=== PATIENT | male | born 1945 | race Caucasian/White ===

== ENCOUNTER 2019-04-16 08:34 | Outpatient (CLI) | payer SELFPAY | END 2019-04-16 08:35 | disposition EMS.NT | LOC: EMS 08:34 | PROVIDERS: ATTEND Surgery | DX: R55 Syncope and collapse (principal) ==

== ENCOUNTER 2019-07-23 19:09 | Outpatient (CLI) | payer SELFPAY | END 2019-07-23 19:10 | disposition EMS.NT | LOC: EMS 19:09 | PROVIDERS: ATTEND Surgery | DX: R55 Syncope and collapse (principal) ==

== ENCOUNTER 2019-11-23 10:44 | Outpatient (CLI) | payer SELFPAY | END 2019-11-23 10:45 | disposition EMS.NT | LOC: EMS 10:44 | PROVIDERS: ATTEND Surgery | DX: R53.1 Weakness (principal); R42 Dizziness and giddiness ==

== ENCOUNTER 2020-05-19 22:17 | Outpatient (CLI) | payer MEDICARE, OTHER | END 2020-05-19 22:18 | disposition EMS.NT | LOC: EMS 22:17 | PROVIDERS: ATTEND Surgery | DX: R40.4 Transient alteration of awareness (principal); W10.9XXA Fall (on) (from) unspecified stairs and steps, initial encounter; Y92.009 Unspecified place in unspecified non-institutional (private) residence as the place of occurrence of the external cause; Z53.29 Procedure and treatment not carried out because of patient's decision for other reasons ==

== ENCOUNTER 2020-06-12 21:55 | Outpatient (CLI) | payer MEDICARE, OTHER | END 2020-06-12 21:56 | disposition short-term general hospital (02) | LOC: EMS 21:55 | PROVIDERS: ATTEND Surgery | DX: R53.1 Weakness (principal); I49.9 Cardiac arrhythmia, unspecified | CPT/HCPCS: A0425; A0427 ==

== ENCOUNTER 2020-08-29 17:23 | Outpatient (CLI) | payer MEDICARE, OTHER | END 2020-08-29 17:24 | disposition critical access hospital (66) | LOC: EMS 17:23 | PROVIDERS: ATTEND Registered Nurse | DX: R55 Syncope and collapse (principal); R00.0 Tachycardia, unspecified; R41.0 Disorientation, unspecified; F41.9 Anxiety disorder, unspecified | CPT/HCPCS: A0425; A0429 ==

== ENCOUNTER 2020-08-29 17:46 | Observation (INO) | payer MEDICARE, OTHER ==
[2020-08-29] MEDS ORDERED: diltiaZEM INJ 5 MG/ML VIAL IVP STA (18:13)
--- NOTE | 2020-08-29 18:14 | XRAY Report ---
PROCEDURE: Chest 1 View X-Ray INDICATIONS: Chest Pain TECHNIQUE: One view of the chest was acquired. COMPARISON: None available. FINDINGS: Surgical changes and devices: None. Lungs and pleura: No pleural effusions or pneumothorax. Lungs are clear. Mediastinum: Mediastinal contours appear normal. Heart size is normal. Bones and chest wall: No suspicious bony lesions. Overlying soft tissues appear unremarkable. IMPRESSION: No acute cardiopulmonary disease. Reviewed by: Mario Liz MD on 08/29/2020 6:12 PM PST Approved by: Mario Liz MD on 08/29/2020 6:12 PM [facility] Station ID: [id number]
--- NOTE | 2020-08-29 18:16 | ED Physician Documentation ---
History of Present Illness - Stated complaint Stated Complaint: NEAR SYNCOPE - Chief complaint Chief Complaint: Cardiac - Additonal information Additional information: 74-year-old male is brought to the emergency department for evaluation of an unwitnessed syncopal event and atrial fibrillation. Patient is amnesic to the events. However per EMS he was shopping at the commissary and fainted. The patient himself does not remember calling 911 and he does not remember the syncopal event. For EMS he was noted to be in atrial fib with an RVR and a rate of 120. Patient reports that intermittently through the years he has had atrial fib rillation. He feels palpitations and a racing heart every few months and that typically lasts about 10 minutes before stopping. Patient denies that he takes any rate control or beta-connie medications. He is not anticoagulated. Pt reports to me that he feels he has been palpitations for 3 days previous to todays events. Patient denies any medical problems with the exception of occasional atrial fibrillation. He is a daily alcohol user typically 3 to 4 glasses of wine. At current time patient denies chest pain or short of breath but he does endorse feeling palpitations and he appears tremulous. SOC: no tobacco; + etoh meds: NONE PMH: atrial fibrillation Review of Systems Constitutional: denies: Fever, Myalgias Eyes: denies: Loss of vision Ears: denies: Loss of hearing, Ear pain Nose: denies: Rhinorrhea / runny nose, Foreign Body Throat: denies: Dental pain / toothache, Oral lesions / sores Cardiac: reports: Palpitations. denies: Chest pain / pressure, Pedal edema, Calf pain Respiratory: denies: Dyspnea, Cough, Hemoptysis, Wheezing GI: denies: Abdominal Pain, Nausea, Vomiting : denies: Dysuria, Frequency, Hesitancy Skin: denies: Rash, Lesions Musculoskeletal: denies: Neck pain, Back pain Neurologic: reports: LOC, Other (amnesic to events). denies: Difficulty speaking, Near syncope PD PAST MEDICAL HISTORY - Present Medications Home Medications: Ambulatory Orders Medication Instructions Recorded Confirmed No Known Home Medications 08/29/20 08/29/20 - Allergies Allergies/Adverse Reactions: Allergies Allergy/AdvReac Type Severity Reaction Status Date / Time amoxicillin Allergy Unknown Verified 08/29/20 21:44 clindamycin Allergy Unknown Verified 08/29/20 21:44 PD ED PE EXPANDED - General General: Alert, Anxious, Other (tremulous) - HEENT HEENT: Head injury (Superficial abrasion small hematoma right forehead at hairline) - Neck Neck: Supple w/out meningeal sx. No: Adenopathy - Cardiac Cardiac: Irregularly irregular, Pedal strong equal, Cap refill < 2 sec. No: Murmur Present - Respiratory Respiratory: Clear to ausultation david. No: Distress, Labored - Abdomen Abdomen: Normal Bowel sounds. No: Tender to palpation - Derm Derm: Normal color. No: Warm and dry - Extremities Extremities: Normal. No: Deformity, Tenderness, Pedal edema bilateral, Right calf TTP/cord, Left calf TTP/cord - Neuro Neuro: Alert and Oriented X 3, CNII-XII intact, Normal gait, Normal finger nose, Normal speech - GCS Eye Opening: Spontaneous Motor: Obeys Commands Verbal: Oriented Total: 15 Results - Vitals Vitals: Vital Signs - 24 hr 08/29/20 08/29/20 08/29/20 17:53 18:25 18:30 Temperature 37.1 C Heart Rate 117 H 110 H 93 Heart Rate [ Sitting] Heart Rate [ Standing] Heart Rate [ Supine] Respiratory 19 15 18 Rate Blood Pressure 158/110 H 119/81 H 140/88 H Blood Pressure [Sitting] Blood Pressure [Standing] Blood Pressure [Supine] O2 Saturation 98 98 100 08/29/20 08/29/20 08/29/20 19:00 19:30 20:00 Temperature Heart Rate 95 95 107 H Heart Rate [ Sitting] Heart Rate [ Standing] Heart Rate [ Supine] Respiratory 15 18 27 H Rate Blood Pressure 149/90 H 157/91 H 123/90 H Blood Pressure [Sitting] Blood Pressure [Standing] Blood Pressure [Supine] O2 Saturation 97 98 97 08/29/20 08/29/20 20:20 20:30 Temperature Heart Rate 96 Heart Rate [ 103 H Sitting] Heart Rate [ 141 H Standing] Heart Rate [ 107 H Supine] Respiratory 17 Rate Blood Pressure 153/110 H Blood Pressure 144/102 H [Sitting] Blood Pressure 139/119 H [Standing] Blood Pressure 168/100 H [Supine] O2 Saturation 97 Oxygen O2 Source Room air - EKG (time done) 1754 Rate: Rate (enter#) (102) Rhythm: Atrial fibrillation Sharon: Other Intervals: No: Prolonged QT QRS: Poor R wave progression Ischemia: Non specific changes (T wave flattening inferior leads) Compare to prior EKG: Old EKG unavailable Computer interpretation: Agree with computer (atrial fibrillation rate 102) - Labs Labs: Laboratory Tests 08/29/20 08/29/20 08/29/20 18:08 18:08 18:08 WBC 4.0 L RBC 3.38 L Hgb 12.0 L Hct 35.5 L MCV 105.0 H MCH 35.5 H MCHC 33.8 RDW 14.3 Plt Count 121 L MPV 9.4 Neut # (Auto) 2.9 Lymph # (Auto) 0.6 L [place] # (Auto) 0.5 Eos # (Auto) 0.0 Baso # (Auto) 0.1 Absolute Nucleated RBC 0.00 Nucleated RBC % 0.0 PT INR Sodium 142 Potassium 5.0 Chloride 104 Carbon Dioxide 20 L Anion Gap 18.0 H BUN 16 Creatinine 0.9 Estimated GFR (MDRD) 83 L Glucose 98 Calcium 8.9 Magnesium Total Bilirubin 1.0 AST 96 H ALT 73 H Alkaline Phosphatase 65 Troponin I High Sens 7.1 B-Natriuretic Peptide Total Protein 7.2 Albumin 4.4 Globulin 2.8 Albumin/Globulin Ratio 1.6 Lipase 38 TSH 08/29/20 08/29/20 08/29/20 18:08 18:08 18:08 WBC RBC Hgb Hct MCV MCH MCHC RDW Plt Count MPV Neut # (Auto) Lymph # (Auto) [place] # (Auto) Eos # (Auto) Baso # (Auto) Absolute Nucleated RBC Nucleated RBC % PT 11.6 INR 1.0 Sodium Potassium Chloride Carbon Dioxide Anion Gap BUN Creatinine Estimated GFR (MDRD) Glucose Calcium Magnesium 2.0 Total Bilirubin AST ALT Alkaline Phosphatase Troponin I High Sens B-Natriuretic Peptide Total Protein Albumin Globulin Albumin/Globulin Ratio Lipase TSH 1.07 08/29/20 18:08 WBC RBC Hgb Hct MCV MCH MCHC RDW Plt Count MPV Neut # (Auto) Lymph # (Auto) [place] # (Auto) Eos # (Auto) Baso # (Auto) Absolute Nucleated RBC Nucleated RBC % PT INR Sodium Potassium Chloride Carbon Dioxide Anion Gap BUN Creatinine Estimated GFR (MDRD) Glucose Calcium Magnesium Total Bilirubin AST ALT Alkaline Phosphatase Troponin I High Sens B-Natriuretic Peptide 192 H Total Protein Albumin Globulin Albumin/Globulin Ratio Lipase TSH - Rads (name of study) CXR Radiology: Final report received (no acute cardiopulmonary process) CT head Radiology: Final report received (No acute intracranial process. Moderate atrophy and chronic microvascular ischemic changes) PD MEDICAL DECISION MAKING - ED course Complexity details: reviewed results, re-evaluated patient, considered differential, d/w patient ED course: 74-year-old male presents the emergency department after a syncopal event while shopping at the commissary this afternoon. He is amnesic to the event. He does however report that he is been having palpitations for the last 3 days and when EMS arrived he was noted to be in atrial fib with a rate of about 120. On presentation here to the emergency department fib was again noted with a rate of about 110-120 and variable. We did give him 10 mg of diltiazem which successfully dropped his rate into the 80s but it remained in fibrillation. non ischemic. Negative trop. He was also given 1 liter crystalloid on presentation to the ED. However pt remained light headed. We checked orthostatic BP's and noted a sharp rise in his HR with standing and he reported feeling faint. Pt is also noted to be tremulous. He was given 1 mg ativan with marked improvement in tremor. This may be early ETOH withdrawal. He is not safe to discharge home given persistent light headedness and near syncope. Pt has no focal neuro findings. CT head negative for acute findings. Pt's CHADS2 score is 1, low to moderate risk of stroke. She should be anticoagulated and started on rate control. However given near syncope and orthostatic vital changes, he will be admitted to the hospital for rate control and further evaluation likely echo. Dr. Naylor has graciously agreed to evaluate pt and admit on observation status. Plan and findings discussed with the patient. Nursing staff also reports to me that the have been in communication with his regarding status and plan. Departure - Departure Disposition: ED Place in Observation Clinical Impression: Syncope Qualifiers: Syncope type: unspecified Qualified Code(s): R55 - Syncope and collapse Atrial fibrillation Qualifiers: Atrial fibrillation type: unspecified Qualified Code(s): I48.91 - Unspecified atrial fibrillation EtOH dependence Qualifiers: Substance use status: in withdrawal Complication of substance-induced condition: uncomplicated Qualified Code(s): F10.230 - Alcohol dependence with withdrawal, uncomplicated Condition: Serious Discharge Date/Time: 08/29/20 21:45
[2020-08-29 18:19] LABS: BASOPHILS # (AUTO) 0.1 10^3/uL (0.0-0.1); BASOPHILS % (AUTO) 1.7 %; EOSINOPHILS % (AUTO) 0.7 %; LYMPHOCYTES # (AUTO) 0.6 10^3/uL (1.5-3.5); LYMPHOCYTES % (AUTO) 14.4 %; MEAN CORPUSCULAR HEMOGLOBIN 35.5 pg (27.0-31.0); MEAN CORPUSCULAR HGB CONC 33.8 g/dL (32.0-36.0); MEAN PLATELET VOLUME 9.4 fL (7.4-11.4); MONOCYTES # (AUTO) 0.5 10^3/uL (0.0-1.0); MONOCYTES % (AUTO) 11.2 %; NEUTROPHILS # (AUTO) 2.9 10^3/uL (1.5-6.6); NEUTROPHILS % (AUTO) 71.5 %; PLT - PLATELET COUNT 121 10^3/uL (130-450); RED BLOOD COUNT 3.38 10^6/uL (4.70-6.10); RED CELL DISTRIBUTION WIDTH 14.3 % (12.0-15.0)
[2020-08-29 18:24] LABS: PT - PROTHROMBIN TIME 11.6 secs (9.9-12.6)
[2020-08-29 18:40] LABS: ALBUMIN 4.4 g/dL (3.2-5.5); ALBUMIN/GLOBULIN RATIO 1.6 (1.0-2.2); CALCIUM 8.9 mg/dL (8.5-10.3); CREATININE 0.9 mg/dL (0.6-1.2); TOTAL PROTEIN 7.2 g/dL (6.7-8.2)
--- NOTE | 2020-08-29 18:57 | CT Report ---
PROCEDURE: HEAD WO INDICATIONS: lapse in consciousness TECHNIQUE: Noncontrast 4.5 mm thick angled axial sections acquired from the foramen magnum to the vertex. For r adiation dose reduction, the following was used: automated exposure control, adjustment of mA and/or kV according to patient size. COMPARISON: None. FINDINGS: Image quality: Excellent. The ventricular system and cortical sulci demonstrate atrophy, consistent for patient's stated age. There are areas of hypodensity in the periventricular and subcortical white matter. There is no acut e intra or extra-axial fluid collection. No acute hemorrhage, mass lesion or midline shift. Brainst em is unremarkable. Globes are symmetrical. Sinuses demonstrate scattered areas of ethmoid and minim al maxillary, frontal sinus mucosal thickening. Osseous structures are intact. IMPRESSION: 1. No acute intracranial process. 2. Moderate atrophy and chronic microvascular ischemic changes. Reviewed by: Shayy Aponte MD on 08/29/2020 5:56 PM [facility] Approved by: Shayy Aponte MD on 08/29/2020 5:56 PM [facility] Station ID: [id number]
[2020-08-29] MEDS ORDERED: LORazepam 2 MG/ML VIAL IVP STA (19:59)
[2020-08-29] MEDS ORDERED: SODIUM CHLORIDE 0.9% 1,000 ML IV STA (20:13)
[2020-08-29] MEDS ORDERED: SODIUM CHLORIDE FLUSH 0.9% 10 ML SYRINGE IVP PRN (20:54)
[2020-08-29] MEDS ORDERED: SODIUM CHLORIDE 0.9% 1,000 ML IV SCH ×2 (21:00→22:33)
[2020-08-29] MEDS ORDERED: LORazepam 2 MG/ML VIAL IVP PRN (21:01)
--- NOTE | 2020-08-29 21:10 | HISTORY & PHYSICAL EXAMINATION ---
Chief Complaint - Chief Complaint Chief Complaint: syncope, atrial fibrillation w/ rvr History of Present Illness - Admitted From Admitted From:: [facility] ED - History Obtained From Records Reviewed: yes History obtained from: patient - History of Present Illness HPI Comment/Other: Patient is a 74-year-old male who denies any medical history and denies taking any medications. He presents with complaint of an unwitnessed syncopal episode. He told the ED provider it happened at the commissary store on the [facility]. However when I saw him later he reported the incident happened at his house. He called EMS who brought him to the emergency department. In the emergency department he was found to be in atrial fibrillation with rapid ventricular rhythm as high as 141. He reports history of palpitations lasting about 10 minutes 3-4 times a year for most of his life. He has never been worked up for this. He is not on any medications. He denies chest pain, dyspnea, abdominal pain, nausea, vomiting, fever or chills. He drinks 3 to 4 glasses of wine daily. He last drank yesterday. He denies ever going through withdrawal symptoms. In the ED he was given a dose of diltiazem 10 mg IV x1 which improved his heart rate to 95. It was reported that he had positive orthostatic vitals and while attempting to ambulate he was somewhat unstable on his feet. Consequently he was presented for further work-up. At bedside he is intermittently mildly tremulous. He has a small scrape on his forehead, supposedly from his fall. He denies any further complaints. History - Past Medical History Cardiovascular: reports: Arrhythmia MRSA Hx?: No Other Past Medical History: Patient denied any past medical history - Past Surgical History Other past surgical history: Patient denied any surgical history - Family & Social History Family History Comment/Other: His mother had lung cancer. His father had an MO. Social History Notes: He lives at home with his . 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 He smoked 1 pack a day for 38 years. He quit smoking in 2003. He reports drinking 3 to 4 glasses of wine daily. He does not use any recreational substances. He is independent of a ctivities of daily living. He ambulates with no walking aid and also runs. - POLST Patient has POLST: No POLST Status: Full Code Meds/Allgy - Home Medications Home Medications: Ambulatory Orders Medication Instructions Recorded Confirmed No Known Home Medications 08/29/20 08/29/20 - Allergies Allergies/Adverse Reactions: Allergies Allergy/AdvReac Type Severity Reaction Status Date / Time amoxicillin Allergy Unknown Verified 08/29/20 21:44 clindamycin Allergy Unknown Verified 08/29/20 21:44 Review of Systems - Constitutional Constitutional: reports: Weakness. denies: Fatigue, Fever, Chills, Diaphoresis - Eyes Eyes: denies: Pain, Vision loss - Ears, Nose & Throat Ears, Nose & Throat: denies: Ear pain, Sore throat - Cardiovascular Cariovascular: reports: Irregular heart rate, Syncope. denies: Chest pain, Jonel ma, Exertional dyspnea - Respiratory Respiratory: denies: Cough, Sputum production, Wheezing, Hemoptysis, SOB at rest, Pleuritic pain - Gastrointestinal Gastrointestinal: denies: Abdominal pain, Abdominal distention, Constipation, Diarrhea, Change in bowel habits, Black stools, Bloody stools, Nausea, Vomiting, Coffee grounds emesis, Reflux/heartburn - Genitourinary Genitourinary: denies: Dysuria, Frequency, Urgency, Incontinence, Flank pain - Musculoskeletal Musculoskeletal: denies: Muscle pain, Back pain, Muscle aches, Stiffness - Integumentary Integumentary: denies: Rash, Pruritis, Lesions - Neurological Neurological: reports: General weakness. denies: Headache, Dizziness, Slurred speech - Psychiatric Psychiatric: denies: Depression, Anxiety, Suicidal - Endocrine Endocrine: denies: Polyuria, Polydypsia - Hematologic/Lymphatic Hematologic/Lymphatic: denies: Anemia, Bruising Prior Level of Functionality: Patient is normally independent of activities of daily living Exam - Vital Signs Vital Signs: Vital Signs x48h Temp Pulse Pulse Pulse Pulse Resp BP 08/29/20 20:30 96 17 153/110 H 08/29/20 20:20 103 H 141 H 107 H 08/29/20 20:00 107 H 27 H 123/90 H 08/29/20 19:30 95 18 157/91 H 08/29/20 19:00 95 15 149/90 H 08/29/20 18:30 93 18 140/88 H 08/29/20 18:25 110 H 15 119/81 H 02/23/21 17:53 37.1 C 117 H 19 158/110 H BP BP BP Pulse Ox 08/29/20 20:30 97 08/29/20 20:20 144/102 H 139/119 H 168/100 H 08/29/20 20:00 97 08/29/20 19:30 98 08/29/20 19:00 97 08/29/20 18:30 100 08/29/20 18:25 98 08/29/20 17:53 98 - Physical Exam General Appearance: positive: No acute distress, Alert, Other (Occasionally mild tremulous) Eyes Bilateral: positive: PERRL, EOMI ENT: positive: Dry mucous membranes Neck: positive: No JVD, Trachea midline Respiratory: positive: Chest non-tender, No respiratory distress, Breath sounds nml. negative: Wheezes, Rales, Rhonchi Cardiovascular: positive: No murmur, Irregularly irregular, Tachycardia Abdomen: positive: Non-tender, No organomegaly, Nml bowel sounds, No distention. negative: Tenderness, Guarding, Rebound Back: positive: Nml inspection Skin: positive: Color nml, No rash, Warm, Dry Extremities: positive: Non-tender, Full ROM, Nml appearance, No pedal edema Neurologic/Psychiatric: positive: Oriented x3, Mood/affect nml Conclusion/Plan - Problem List (1) Atrial fibrillation Conclusion/Plan: Suspect related to alcohol use TSH normal. Trop normal. Will trend X 2 more. BNP 192 Patient has never been on any medication for atrial fibrillation Heart rate was in the 140's Patient was give a dose of diltiazem 10mg IV Heart rate improved to the 90's Diltiazem 30mg po q6hrs ordered On telemetry. 2D echo pending Patient has a CHADVasc Score of 2 for Age and HTN Qualifiers: Atrial fibrillation type: unspecified Qualified Code(s): I48.91 - Unspecified atrial fibrillation (2) Syncope Conclusion/Plan: ? Cardiac cause vs Alcohol use. CT brain negative for any acute process 2D echo pending Orthostatics were positive. Will repeat qshift Patient received 1L of IV hydration in the ED. Continue with normal saline at 50ml/hr On telemetry. Urine Tox screen pending Qualifiers: Syncope type: unspecified Qualified Code(s): R55 - Syncope and collapse (3) Alcohol abuse Conclusion/Plan: Patient drinks 3-4 glasses of wine daily. CIWA protocol initiated. Librium 25mg po tid ordered - Lab Results Fish Bones: 08/29/20 18:08 08/29/20 18:08 Core Measures - Anticipated LOS I expect patient to be DC'd or transferred within 96 hours.: Yes - DVT/VTE - Prophylaxis VTE/DVT Device ordered at admit?: Yes VTE/DVT Prophylaxis med ordered at admit?: Yes
[2020-08-29 22:15] LABS: C. PNEUMONIAE- RESP PCR PANEL NOT DETECTED
[2020-08-29] MEDS ORDERED: diltiaZEM 30 MG TABLET PO SCH (22:21)
[2020-08-29] MEDS: chlordiazePOXIDE 25 MG CAPSULE PO SCH (23:22)
[2020-08-29 23:31] LABS: MUDS CUTOFF CONCENTRATIONS CUTOFF CONC BELOW:
[2020-08-29] MEDS: SODIUM CHLORIDE FLUSH 0.9% 10 ML SYRINGE IVP SCH (23:33)
[2020-08-29 23:41] LABS: AMPHETAMINE SCREEN,URINE NEGATIVE (NEGATIVE); BENZODIAZEPINES SCREEN, URINE NEGATIVE (NEGATIVE); COCAINE SCREEN URINE NEGATIVE (NEGATIVE); METHADONE SCREEN, URINE NEGATIVE (NEGATIVE); METHAMPHETAMINES SCREEN, URINE NEGATIVE (NEGATIVE); OPIATE SCREEN, URINE NEGATIVE (NEGATIVE); OXYCODONE SCREEN, URINE NEGATIVE (NEGATIVE); PROPOXYPHENE SCREEN, URINE NEGATIVE (NEGATIVE); TRICYCLIC ANTIDEPRESSANT,URINE NEGATIVE (NEGATIVE)
[2020-08-30 04:53] LABS: BASOPHILS # (AUTO) 0.1 10^3/uL (0.0-0.1); BASOPHILS % (AUTO) 1.6 %; EOSINOPHILS # (AUTO) 0.1 10^3/uL (0.0-0.7); EOSINOPHILS % (AUTO) 1.6 %; HGB - HEMOGLOBIN 10.5 g/dL (14.0-18.0); LYMPHOCYTES % (AUTO) 23.2 %; MEAN CORPUSCULAR HEMOGLOBIN 35.1 pg (27.0-31.0); MEAN CORPUSCULAR HGB CONC 33.7 g/dL (32.0-36.0); MEAN CORPUSCULAR VOLUME 104.3 fL (80.0-94.0); MEAN PLATELET VOLUME 10.1 fL (7.4-11.4); MONOCYTES # (AUTO) 0.6 10^3/uL (0.0-1.0); MONOCYTES % (AUTO) 13.9 %; NEUTROPHILS # (AUTO) 2.6 10^3/uL (1.5-6.6); PLT - PLATELET COUNT 100 10^3/uL (130-450); RED BLOOD COUNT 2.99 10^6/uL (4.70-6.10); RED CELL DISTRIBUTION WIDTH 14.1 % (12.0-15.0); WHITE BLOOD COUNT 4.4 x10^3/uL (4.8-10.8)
[2020-08-30 05:02] LABS: CALCIUM 8.6 mg/dL (8.5-10.3); CREATININE 0.9 mg/dL (0.6-1.2)
[2020-08-30] MEDS: chlordiazePOXIDE 25 MG CAPSULE PO SCH (05:02)
[2020-08-30] MEDS ORDERED: diltiaZEM 30 MG TABLET PO SCH (06:00)
[2020-08-30] MEDS ORDERED: THIAMINE 100 MG TABLET PO SCH (09:00)
[2020-08-30] MEDS ORDERED: diltiaZEM CD 120 MG CAPSULE PO SCH (09:00)
[2020-08-30] MEDS ORDERED: PRENATAL VITAMIN TABLET PO SCH (09:00)
[2020-08-30] MEDS ORDERED: ENOXAPARIN 40 MG/0.4 ML SYRINGE SUBQ SCH (09:00)
[2020-08-30] MEDS: SODIUM CHLORIDE FLUSH 0.9% 10 ML SYRINGE IVP SCH (09:30)
--- NOTE | 2020-08-30 11:20 | PHARMACY PROGRESS NOTE ---
- Best Possible Medication History Admit Date and Time: 08/29/202053 Processed by: Pharmacy Medication History completed: Yes Patient Interview: Completed (Pt interveiwed by Savita) Secondary Source(s): Insurance records (Insurance records show hx of fill for Metoprolol and Apixaban, nothing filled recently) As the person ultimately responsible for medication therapy, providers are able to order a medication from an existing home medication list in [facility] via the "Reconcile Routine" prior to Confirmation of that medication by personal support worker. Such practice is discouraged except when the physician, in their clinical judgment, deems that a medical need exists for a medication without regard to previous use.
--- NOTE | 2020-08-30 12:15 | Discharge Plan ---
Discharge Plan Problem Reviewed?: Yes Disposition: Home, Self Care Condition: Stable Prescriptions: Aspirin [Aspirin EC] 81 mg PO DAILY #30 mg diltiaZEM CD [Cardizem Cd] 120 mg PO DAILY #30 mg Pnv No.95/Ferrous Fum/Folic AC [ Tablet] 1 each PO DAILY #30 ea Thiamine [Vitamin B-1] 100 mg PO DAILY #30 mg Diet: Regular Activity Restrictions: Activity as Tolerated Shower Restrictions: No (fall precaution) Instruction Topics: AFL/Afib, Atrial Fibrillation, Stroke Prevent Live W Atrial Fib, Diltiazem extended-release capsules or tablets, Alcoholism, Alcoholism Part Solution, Alcoholism Get Help Health Concerns: afib, alcoholism Plan of Treatment: you are found to have afib with rapid ventricular response, also called rapid heart beats. Now your heart rate is controlled. new medications Cardizem and Aspirin are prescribed for you to control your Afib with rapid heart beat. It is likely caused by your alcoholism. It is critical important for you to quit your alcoholism as I discussed with you and your . Medication and Vitamin B1 are prescribed to help you to deal with your alcoholism. Care Goals: stabilization and improvement of your medical conditions Assessment: discussed the care plan with you and your , answered your questions, you understood. Additional Instructions or Follow Up instructions: You may followup with your PCP in one to two weeks. Should your symptoms return or worsen, you may present ER or call 911 for help No Smoking: If you smoke, Please STOP! Call for help. Follow-up with: CHINA MONTIEL MD [Primary Care Provider] -
--- NOTE | 2020-08-30 12:31 | DISCHARGE SUMMARY ---
Discharge Summary Admit Date: 08/29/20 Discharge Date: 08/30/20 Discharging Provider: Gallito Valero Primary Care Provider: Austin Love Condition at Discharge: Stable Discharge Disposition: 01 Home, Self Care Discharge Facility Name: home - DIAGNOSES Discharge Diagnoses with Status of Each Condition: (1) Atrial fibrillation HR is controlled by Cardizem CD, pt's Chadsvascular score 1. pt is prescribed Cardizem and aspirin. Pt has hx of afib, per pt's report, It was likely caused by his alcoholism. Strongly advised patient quit alcohol (2) Syncope pt report he did not lost Consciousness When he had a fall in the home. CT of the head was unremarkable. EKG show A fibrillation with RVR. Troponin test was negative. Echo show unremarkable. Fall/syncope was likely caused by a fibrillation with some dehydration. Now atrial fibrillation heart Rate is controlled. Dehydration is resolved. Strongly advised patient quit alcohol (3) Alcohol abuse Discussed the care plan with patient and patient's , Social work also discussed the care with the patient. Strongly advised patient quit alcohol. Patient is prescribed multiple vitamin and vitamin B1. Patient has no alcohol withdrawal symptoms in hospital. Strongly advised patient quit alcohol (4)Dehydration resolved (5)medical noncompliant Per patient 's report and pharmacy check patient medication record, pt was likely not take his medication or refill of his home medications. advise pt do medical compliance. - HPI History of Present Illness: refer from Dr. Naylor's HPI on 08/29/20 Patient is a 74-year-old male who denies any medical history and denies taking any medications. He presents with complaint of an unwitnessed syncopal episode. He told the ED provider it happened at the [employer] store on the [employer]. However when I saw him later he reported the incident happened at his house. He called EMS who brought him to the emergency department. In the emergency department he was found to be in atrial fibrillation with rapid ventricular rhythm as high as 141. He reports history of palpitations lasting about 10 minutes 3-4 times a year for most of his life. He has never been worked up for this. He is not on any medications. He denies chest pain, dyspnea, abdominal pain, nausea, vomiting, fever or chills. He drinks 3 to 4 glasses of wine daily. He last drank yesterday. He denies ever going through withdrawal symptoms. In the ED he was given a dose of diltiazem 10 mg IV x1 which improved his heart rate to 95. It was reported that he had positive orthostatic vitals and while attempting to ambulate he was somewhat unstable on his feet. Consequently he was presented for further work-up. At bedside he is intermittently mildly tremulous. He has a small scrape on his forehead, supposedly from his fall. He denies any further complaints. - HOSPITAL COURSE Hospital Course: Patient was admitted for evaluation of syncope and fall in the home. Patient reported he denied loss of conscious when he had a fall in the home. CT of the head was unremarkable. Patient was found to have atrial fibrillation with RVR. Patient was given Cardizem CD and his heart rate was controlled. Patient also was given intravenous IV fluids for his dehydration. Patient was alcoholism. Per patient report, his atrial fibrillation was likely caused fby patient'a alcohol abuse. Patient has no alcohol withdrawal symptoms in hospital. Strongly advised patient to quit alcohol. - ALLERGIES Allergies/Adverse Reactions: Allergies Allergy/AdvReac Type Severity Reaction Status Date / Time amoxicillin Allergy Unknown Verified 08/29/20 21:44 clindamycin Allergy Unknown Verified 08/29/20 21:44 - MEDICATIONS Home Medications: Ambulatory Orders Medication Instructions Recorded Confirmed Aspirin [Aspirin EC] 81 mg PO DAILY #30 mg 08/30/20 Pnv No.95/Ferrous Fum/Folic AC 1 each PO DAILY #30 ea 08/30/20 [ Tablet] Thiamine [Vitamin B-1] 100 mg PO DAILY #30 mg 08/30/20 diltiaZEM CD [Cardizem Cd] 120 mg PO DAILY #30 mg 08/30/20 - PHYSICAL EXAM AT DISCHARGE General Appearance: positive: No acute distress, Alert. negative: Lethargic Eyes Bilateral: positive: Normal inspection, PERRL. negative: No lid inflammation ENT: positive: ENT inspection nml, No signs of dehydration. negative: Purulent nasal drainage Neck: positive: Nml inspection, Trachea midline. negative: Thyromegaly, Tracheal deviation Respiratory: positive: Chest non-tender, No respiratory distress. negative: Wheezes, Rales, Rhonchi Cardiovascular: positive: Regular rate & rhythm, No murmur. negative: Tachycardia, Bradycardia, Systolic murmur, Diastolic murmur Peripheral Pulses: positive: 2+ Abdomen: positive: Non-tender, Nml bowel sounds, No distention. negative: Tenderness, Guarding, Rebound Back: positive: Nml inspection. negative: CVA tenderness (R), CVA tenderness (L) Skin: positive: Color nml, Warm, Dry. negative: Cyanosis, Diaphoresis, Pallor Extremities: positive: Non-tender, Full ROM, Nml appearance. negative: Calf tenderness Neurologic/Psychiatric: positive: Oriented x3, Motor nml, Sensation nml. negative: Weakness, Sensory loss, Facial droop, Slurred/abnml speech, Depressed mood/affect - LABS Result Diagrams: 08/30/20 03:52 08/30/20 03:52 - FOLLOW UP Follow Up: you are found to have afib with rapid ventricular response, also called rapid heart beats. Now your heart rate is controlled. new medications Cardizem and Aspirin are prescribed for you to control your Afib with rapid heart beat. It is likely caused by your alcoholism. It is critical important for you to quit your alcoholism as I discussed with you and your . Medication and Vitamin B1 are prescribed to help you to deal with your alcoholism. You may followup with your PCP in one to two weeks. Should your symptoms return or worsen, you may present ER or call 911 for help - TIME SPENT Time Spent in Discharge (Minutes): 30
[2020-08-30 13:10] VITALS: BP 128/88
== END 2020-08-30 13:39 | disposition home or self-care (01) ==
LOC: EDUNIT# → ED 17:46 → MS2 20:54
PROVIDERS: ADMIT Internal Medicine; ATTEND Nurse Practitioner Gerontology
DX: I48.91 Unspecified atrial fibrillation (principal); R55 Syncope and collapse; E86.0 Dehydration; F10.20 Alcohol dependence, uncomplicated; R25.1 Tremor, unspecified; Z87.891 Personal history of nicotine dependence; Z20.822 Contact with and (suspected) exposure to COVID-19; S00.81XA Abrasion of other part of head, initial encounter; W18.30XA Fall on same level, unspecified, initial encounter; Y92.512 Supermarket, store or market as the place of occurrence of the external cause
CPT/HCPCS: 36415; 70450; 71045; 80048; 80053; 80306; 83690; 83735; 83880; 84443; 84484; 85025; 85610; 87631; 93005; 93306; 96361; 96372; 96374; 96375; 96376; 97161; 99284; 99285; A9270; G0378; J1650; J2060; 0202U

== ENCOUNTER 2020-10-17 19:49 | Outpatient (CLI) | payer MEDICARE, OTHER | END 2020-10-17 19:50 | disposition short-term general hospital (02) | LOC: EMS 19:49 | DX: S01.81XA Laceration without foreign body of other part of head, initial encounter (principal); W10.9XXA Fall (on) (from) unspecified stairs and steps, initial encounter; Y92.009 Unspecified place in unspecified non-institutional (private) residence as the place of occurrence of the external cause | CPT/HCPCS: A0425; A0429 ==

== ENCOUNTER 2020-11-10 12:52 | Outpatient (CLI) | payer MEDICARE, OTHER | END 2020-11-10 12:53 | disposition EMS.NT | LOC: EMS 12:52 | DX: M54.9 Dorsalgia, unspecified (principal) ==

== ENCOUNTER 2021-03-23 16:22 | Outpatient (CLI) | payer MEDICARE, OTHER | END 2021-03-23 16:23 | disposition critical access hospital (66) | LOC: EMS 16:22 | DX: R42 Dizziness and giddiness (principal); R00.2 Palpitations | CPT/HCPCS: A0425; A0429 ==

== ENCOUNTER 2021-03-23 16:46 | Emergency (ER) | payer MEDICARE, OTHER ==
[2021-03-23] MEDS ORDERED: METOPROLOL 5 MG/5 ML VIAL IVP STA (17:20)
--- NOTE | 2021-03-23 17:21 | ED Physician Documentation ---
History of Present Illness - Stated complaint Stated Complaint: DIZZINESS - Chief complaint Chief Complaint: Neuro - History obtained from History obtained from: Patient - Additonal information Additional information: 33-year-old gentleman with paroxysmal atrial fibrillation feels like he has been in A. fib all day. States that it has been several months since he has been in [place] [employer] and usually does not last this long. He is supposed to be taking metoprolol and aspirin but he admits to noncompliance with these. He had a near syncopal episode at the store which necessitated evaluation. He denies chest pain or trouble breathing. Review of Systems Ten Systems: 10 systems reviewed and negative Constitutional: reports: Fatigue, Reviewed and negative Cardiac: reports: Palpitations. denies: Chest pain / pressure Respiratory: denies: Dyspnea, Cough PD PAST MEDICAL HISTORY - Past Medical History Cardiovascular: Arrhythmia - Present Medications Home Medications: Ambulatory Orders Medication Instructions Recorded Confirmed No Known Home Medications 03/23/21 03/23/21 - Allergies Allergies/Adverse Reactions: Allergies Allergy/AdvReac Type Severity Reaction Status Date / Time amoxicillin Allergy Unknown Verified 03/23/21 16:55 clindamycin Allergy Unknown Verified 03/23/21 16:55 - Social History Does the pt smoke?: No Smoking Status: Never smoker - POLST Patient has POLST: No POLST Status: Full Code PD ED PE NORMAL - Vitals Vital signs reviewed: Yes - General General: Alert and oriented X 3, No acute distress - HEENT HEENT: PERRL, EOMI - Neck Neck: Supple, no meningeal sign, No bony TTP - Cardiac Cardiac: Other (Rapid and irregular without murmur) - Respiratory Respiratory: No respiratory distress, Clear bilaterally - Abdomen Abdomen: Non tender - Back Back: No CVA TTP, No spinal TTP - Derm Derm: Normal color, Warm and dry - Extremities Extremities: No edema, No calf tenderness / cord - Neuro Neuro: Alert and oriented X 3, Normal speech Results - Vitals Vitals: Vital Signs - 24 hr 03/23/21 03/23/21 03/23/21 16:55 17:32 17:37 Temperature 36.5 C Heart Rate 113 H 94 100 Respiratory 18 Rate Blood Pressure 144/114 H 146/96 H 146/98 H O2 Saturation 98 03/23/21 03/23/21 03/23/21 17:42 17:54 19:00 Temperature 36.6 C Heart Rate 98 94 97 Respiratory 16 16 Rate Blood Pressure 143/94 H 138/111 H 134/105 H O2 Saturation 98 99 03/23/21 03/23/21 03/23/21 19:56 20:01 20:02 Temperature Heart Rate 95 71 67 Respiratory 25 H 19 18 Rate Blood Pressure 147/106 H 153/99 H 153/99 H O2 Saturation 99 95 95 03/23/21 03/23/21 03/23/21 20:06 20:15 20:45 Temperature Heart Rate 71 73 78 Respiratory 20 18 17 Rate Blood Pressure 139/92 H 128/107 H 149/98 H O2 Saturation 97 100 99 03/23/21 03/23/21 03/23/21 21:53 21:55 22:39 Temperature Heart Rate 95 94 90 Respiratory 20 Rate Blood Pressure 114/82 H 115/85 H O2 Saturation 03/23/21 03/23/21 03/24/21 23:00 23:30 01:00 Temperature Heart Rate 77 77 73 Respiratory 18 18 18 Rate Blood Pressure 126/108 H 121/72 132/88 H O2 Saturation 95 95 96 03/24/21 03/24/21 03/24/21 03:00 05:00 07:00 Temperature Heart Rate 68 79 71 Respiratory 18 18 18 Rate Blood Pressure 138/87 H 143/92 H 156/100 H O2 Saturation 96 98 95 03/24/21 03/24/21 07:56 09:55 Temperature Heart Rate 67 84 Respiratory 16 22 Rate Blood Pressure 143/92 H 114/87 H O2 Saturation 94 97 Oxygen O2 Source Room air - EKG (time done) 1724 Rate: Rate (enter#) (102) Rhythm: Atrial fibrillation [place]: Normal QRS: Normal Ischemia: Q waves (small inferior). No: Non specific changes 1959 Rate: Rate (enter#) (75) Rhythm: NSR (w lawrence pacs) [place]: Normal Intervals: Normal NE, Prolonged QT QRS: Normal Ischemia: Normal ST segments 2204 Rate: Rate (enter#) (86w) Rhythm: NSR (w pacs) [place]: Normal Intervals: Prolonged NE, Prolonged QT QRS: Normal Ischemia: No: ST elevation c/w ischemia, ST depression - Labs Labs: Laboratory Tests 03/23/21 03/23/21 17:15 17:15 WBC 6.2 RBC 3.61 L Hgb 12.7 L Hct 37.2 L MCV 103.0 H MCH 35.2 H MCHC 34.1 RDW 13.3 Plt Count 135 MPV 10.1 Neut # (Auto) 4.9 Lymph # (Auto) 0.7 L [place] # (Auto) 0.5 Eos # (Auto) 0.0 Baso # (Auto) 0.1 Absolute Nucleated RBC 0.00 Nucleated RBC % 0.0 Sodium 140 Potassium 4.9 Chloride 97 L Carbon Dioxide 27 Anion Gap 16.0 H BUN 18 Creatinine 1.2 Estimated GFR (MDRD) 59 L Glucose 146 H Calcium 9.3 Magnesium 1.6 L Total Bilirubin 2.2 H AST 143 H ALT 104 H Alkaline Phosphatase 96 Total Protein 7.1 Albumin 4.2 Globulin 2.9 Albumin/Globulin Ratio 1.4 Lipase 40 Ethyl Alcohol < 5.0 Procedures - Procedural sedation Sedation prep: Informed consent, Time out completed, Last meal (this am), PE performed, ASA 2 - mild disease Sedation Medications: propofol (70 then 40mg IVP) Mallampati classification: I Patient status during sedation: Responds to tactile Sedation recovery: Recovered uneventfully Time in sedation (Minutes): 10 - Cardioversion 1 Time of attempt: 20:00 Indication: Tachyarrhythmia Risks, benefits, alternatives explained to: Pt CS via: Pads, AP approach Sync: 50j, 100j, 150j Post cardioversion rhythm: NSR Performed by: ED MD [facility] MEDICAL DECISION MAKING - ED course ED course: 75-year-old gentleman with paroxysmal atrial fibrillation presents with symptomatic atrial fibrillation starting today. Initially given 5 mg metoprolol IV which resulted in rate control but not rhythm control. Procainamide drip, 1 g over 1 hour did not result in any significant change and patient consented for electrical cardioversion. He was cardioverted successfully, then we were waiting for a friend to come pick him up. Prior to discharge though he was complaining of slight chest pressure, I presume from the cardioversion, but also feeling very shaky and orthostatic although he is not technically orthostatic but did not tolerate standing upright. Could be some element of alcohol withdrawal given the shakiness but he is not hypertensive nor tachycardic. Will repeat EKG again and check a fingerstick glucose. Ended up boarding to see social work in the morning and he declined help with alcohol withdrawal. Departure - Departure Disposition: 01 Home, Self Care Clinical Impression: Alcohol abuse Atrial fibrillation Qualifiers: Atrial fibrillation type: paroxysmal Qualified Code(s): I48.0 - Paroxysmal atrial fibrillation Condition: Good Record reviewed to determine appropriate education?: Yes Instructions: Atrial Fibrillation Dc Comments: Important to take your medications, metoprolol and aspirin as prescribed. Also as discussed, your liver is starting to show signs of damage due to alcoholism and is important to cease alcohol use. Return for new or worsening symptoms. 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 Discharge Date/Time: 03/24/21 11:45
[2021-03-23 17:23] LABS: BASOPHILS # (AUTO) 0.1 10^3/uL (0.0-0.1); BASOPHILS % (AUTO) 1.1 %; EOSINOPHILS % (AUTO) 0.2 %; HCT - HEMATOCRIT 37.2 % (42.0-52.0); HGB - HEMOGLOBIN 12.7 g/dL (14.0-18.0); LYMPHOCYTES # (AUTO) 0.7 10^3/uL (1.5-3.5); LYMPHOCYTES % (AUTO) 11.1 %; MEAN CORPUSCULAR HEMOGLOBIN 35.2 pg (27.0-31.0); MEAN CORPUSCULAR HGB CONC 34.1 g/dL (32.0-36.0); MEAN PLATELET VOLUME 10.1 fL (7.4-11.4); MONOCYTES # (AUTO) 0.5 10^3/uL (0.0-1.0); MONOCYTES % (AUTO) 7.7 %; NEUTROPHILS # (AUTO) 4.9 10^3/uL (1.5-6.6); NEUTROPHILS % (AUTO) 79.1 %; PLT - PLATELET COUNT 135 10^3/uL (130-450); RED BLOOD COUNT 3.61 10^6/uL (4.70-6.10); RED CELL DISTRIBUTION WIDTH 13.3 % (12.0-15.0); WHITE BLOOD COUNT 6.2 x10^3/uL (4.8-10.8)
[2021-03-23 17:34] LABS: ALBUMIN 4.2 g/dL (3.2-5.5); ALBUMIN/GLOBULIN RATIO 1.4 (1.0-2.2); ALKALINE PHOSPHATASE 96 IU/L (42-121); ALT ALANINE AMINOTRANSFERASE 104 IU/L (10-60); AST ASPARTATE AMINOTRANSFERASE 143 IU/L (10-42); BILIRUBIN,TOTAL 2.2 mg/dL (0.2-1.0); BUN - BLOOD UREA NITROGEN 18 mg/dL (6-20); CALCIUM 9.3 mg/dL (8.5-10.3); CARBON DIOXIDE - CO2 27 mmol/L (21-32); CHLORIDE 97 mmol/L (101-111); CREATININE 1.2 mg/dL (0.6-1.2); ETOH - ETHANOL < 5.0 mg/dL; GFR - MDRD 59 (>89); GLUCOSE 146 mg/dL (70-100); LIPASE 40 U/L (22-51); MAGNESIUM 1.6 mg/dL (1.7-2.8); POTASSIUM 4.9 mmol/L (3.5-5.0); SODIUM 140 mmol/L (135-145); TOTAL PROTEIN 7.1 g/dL (6.7-8.2)
[2021-03-23] MEDS ORDERED: PROCAINAMIDE 1,000 MG in SODIUM CHLORIDE 0.9% 240 ML IV STA (18:04)
[2021-03-23] MEDS ORDERED: PROPOFOL 200 MG/20 ML VIAL IVP STA ×2 (19:46→20:11)
[2021-03-23] MEDS ORDERED: PROPOFOL 200 MG/20 ML VIAL IVP ONE (19:54)
[2021-03-23] MEDS ORDERED: LORazepam 2 MG/ML VIAL IVP STA (21:59)
[2021-03-23] MEDS ORDERED: FOLIC ACID INJ 1 MG, THIAMINE INJ 100 MG, MAGNESIUM SULFATE 2 GM, MULTIVITAMIN 10 ML in... IV STA ×5 (22:16)
[2021-03-23] MEDS ORDERED: THIAMINE 100 MG/1 ML 2 ML MDV ONE (22:24)
[2021-03-23] MEDS ORDERED: MAGNESIUM SULFATE 1 GM/2 ML VIAL ONE (22:24)
[2021-03-24 09:56] VITALS: BP 114/87
--- NOTE | 2021-03-24 10:44 | ED Physician Documentation ---
ED Addendum - Addendum Addendum: 03/24/21 10:42Talked with the patient. He did not wish any detox or such at this point. Given resources to call for follow-up. He was ambulatory to the bathroom. Slightly unsteady but he does have a walker at home. Social work is going to contact his friend and have him checked on often. At this point he is dischargeable safely. His heart rate at this point is regular and normal.
== END 2021-03-24 11:45 | disposition home or self-care (01) ==
LOC: EDUNIT# → ED 16:46
DX: I48.0 Paroxysmal atrial fibrillation (principal); F10.139 Alcohol abuse with withdrawal, unspecified; Z79.01 Long term (current) use of anticoagulants
CPT/HCPCS: 36415; 80053; 83690; 83735; 85025; 92960; 93005; 96365; 96366; 96367; 96375; 99152; 99284; 99285; G0480; J2060; J2690; J3411; 80320; 94770

== ENCOUNTER 2021-08-22 06:12 | Outpatient (CLI) | payer MEDICARE, OTHER | END 2021-08-22 06:13 | disposition critical access hospital (66) | LOC: EMS 06:12 | DX: R00.2 Palpitations (principal) | CPT/HCPCS: A0425; A0429 ==

== ENCOUNTER 2021-08-22 06:45 | Emergency (ER) | payer MEDICARE, OTHER ==
[2021-08-22] MEDS ORDERED: SODIUM CHLORIDE 0.9% 1,000 ML IV STA (06:53)
--- NOTE | 2021-08-22 07:21 | ED Physician Documentation ---
History of Present Illness - Stated complaint Stated Complaint: PALPITATIONS - Chief complaint Chief Complaint: Cardiac - History obtained from History obtained from: Patient - History of Present Illness Timing: Last night - Additonal information Additional information: 75 y/o alcoholic male with a history of intermittent afib has a sensation of palpitations in his chest and he has stopped drinking yesterday. He denies symptoms of alcohol withdrawal. He drinks regularly hard alcohol and it has been more than one year since he has gone more than 5 days without alcohol. He was seen her last summer for afib with RVR and was electrically converted after failure of procainamide IV. He refused alcohol services that visit. Today he is telling me he needs to stop drinking. Review of Systems Constitutional: denies: Fever Eyes: denies: Decreased vision Ears: denies: Ear pain Nose: denies: Congestion Throat: denies: Sore throat Cardiac: reports: Palpitations. denies: Chest pain / pressure, Pedal edema, Calf pain Respiratory: denies: Dyspnea, Cough, Wheezing GI: denies: Abdominal Pain, Nausea, Vomiting, Constipation, Diarrhea : denies: Dysuria, Frequency Skin: denies: Rash Musculoskeletal: denies: Neck pain, Back pain, Extremity pain Neurologic: denies: Generalized weakness, Focal weakness, Numbness PD PAST MEDICAL HISTORY - Past Medical History Past Medical History: Yes Cardiovascular: Arrhythmia Respiratory: None Neuro: None Endocrine/Autoimmune: None GI: None : None HEENT: None Psych: None Musculoskeletal: None Derm: None - Past Surgical History Past Surgical History: No - Present Medications Home Medications: Ambulatory Orders Medication Instructions Recorded Confirmed Metoprolol Succinate [Toprol Xl] 25 mg PO DAILY #30 tablet 08/22/21 chlordiazePOXIDE [Librium] 25 mg PO Q6H PRN #13 cap 08/22/21 - Allergies Allergies/Adverse Reactions: Allergies Allergy/AdvReac Type Severity Reaction Status Date / Time amoxicillin Allergy Unknown Verified 08/22/21 06:54 clindamycin Allergy Unknown Verified 08/22/21 06:54 - Social History Does the pt smoke?: No Smoking Status: Never smoker Does the pt drink ETOH?: Yes Does the pt have substance abuse?: No - Immunizations Immunizations are current?: No - POLST Patient has POLST: No POLST Status: Full Code PD ED PE NORMAL - Vitals Vital signs reviewed: Yes (hypertensive) - General General: Alert and oriented X 3, Well developed/nourished, Other (anxious appearing 75 y/o male ) - HEENT HEENT: Atraumatic, PERRL, EOMI - Neck Neck: Supple, no meningeal sign, No bony TTP - Cardiac Cardiac: No murmur, Other (irregularly irregular rate and rhythm.) - Respiratory Respiratory: No respiratory distress, Clear bilaterally - Abdomen Abdomen: Normal bowel sounds, Soft, Non tender, Non distended, No organomegaly - Back Back: No CVA TTP - Derm Derm: Normal color, Warm and dry, No rash - Extremities Extremities: No deformity, No edema - Neuro Neuro: Alert and oriented X 3, pattern mechanic 2-12 intact, No motor deficit, No sensory deficit, Normal speech Eye Opening: Spontaneous Motor: Obeys Commands Verbal: Oriented GCS Score: 15 - Psych Psych: Normal mood, Normal affect Results - Vitals Vitals: Vital Signs - 24 hr 08/22/21 08/22/21 08/22/21 06:49 06:57 07:02 Temperature 36.6 C Heart Rate 100 112 H 109 H Respiratory 20 24 24 Rate Blood Pressure 120/98 H 128/99 H O2 Saturation 99 99 98 08/22/21 08/22/21 08/22/21 09:29 12:26 13:41 Temperature Heart Rate 65 69 74 Respiratory 15 18 18 Rate Blood Pressure 103/76 134/89 H 134/95 H O2 Saturation 98 100 97 08/22/21 15:00 Temperature 36.1 C L Heart Rate 86 Respiratory 16 Rate Blood Pressure 118/72 O2 Saturation 98 Oxygen O2 Source Room air - EKG (time done) 0647 Rate: Rate (enter#) (100) Rhythm: Atrial fibrillation QRS: Low voltage Compare to prior EKG: Unchanged from prior EKG (SPT 03/23/21 no sig change ) Computer interpretation: Agree with computer 1253 Rate: Rate (enter#) (69) Rhythm: Atrial fibrillation QRS: Low voltage Ischemia: Q waves Compare to prior EKG: Changed from prior EKG (SPT earlier today the rate has decreased) Computer interpretation: Disagree with computer (I do not see inferior ST elevation ) - Labs Labs: Laboratory Tests 08/22/21 08/22/21 08/22/21 07:12 07:12 07:12 WBC 4.7 L RBC 3.62 L Hgb 12.1 L Hct 34.7 L MCV 95.9 H MCH 33.4 H MCHC 34.9 RDW 14.1 Plt Count 153 MPV 10.1 Neut # (Auto) 3.6 Lymph # (Auto) 0.5 L [place] # (Auto) 0.5 Eos # (Auto) 0.0 Baso # (Auto) 0.1 Absolute Nucleated RBC 0.00 Nucleated RBC % 0.0 Sodium 134 L Potassium 4.0 Chloride 94 L Carbon Dioxide 23 Anion Gap 17.0 H BUN 19 Creatinine 1.3 H Estimated GFR (MDRD) 54 L Glucose 105 H Calcium 9.1 Total Bilirubin 1.8 H AST 94 H ALT 66 H Alkaline Phosphatase 67 Troponin I High Sens Total Protein 6.8 Albumin 4.1 Globulin 2.7 Albumin/Globulin Ratio 1.5 Lipase 53 H TSH 1.14 Ethyl Alcohol < 5.0 08/22/21 07:12 WBC RBC Hgb Hct MCV MCH MCHC RDW Plt Count MPV Neut # (Auto) Lymph # (Auto) [place] # (Auto) Eos # (Auto) Baso # (Auto) Absolute Nucleated RBC Nucleated RBC % Sodium Potassium Chloride Carbon Dioxide Anion Gap BUN Creatinine Estimated GFR (MDRD) Glucose Calcium Total Bilirubin AST ALT Alkaline Phosphatase Troponin I High Sens 8.9 Total Protein Albumin Globulin Albumin/Globulin Ratio Lipase TSH Ethyl Alcohol PD MEDICAL DECISION MAKING - ED course Complexity details: reviewed old records, reviewed results, re-evaluated patient, considered differential, d/w patient, d/w solar consultant (Yousef, no indication for admission here. Rate is controlled, blood pressure is controlled. Treatment of alcohol withdrawal is indicated. ) ED course: 75 y/o male alcoholic with afib with RVR appears to tolerate the rhythm and he is administered a banana bag IV, 20mg of diltiazem IV and 1mg of ativan IV. He does slow nicely and responds to the ativan. He does not convert and he is given a 1gm IV dose of procainamide without conversion. He is well controlled at 70 and has no symptoms. I am reluctant to shock this gentleman as I suspect he could be in afib more frequently than he is aware of. We will control his rate and provide medication for withdrawal. He has been to treatment previously and did not find it helpful. Departure - Departure Disposition: 01 Home, Self Care Clinical Impression: Atrial fibrillation Qualifiers: Atrial fibrillation type: persistent (not longstanding) Qualified Code(s): I48.19 - Other persistent atrial fibrillation Condition: Stable Instructions: Withdrawal Alcohol What Expect, ED Afib, ED Seizure Alcohol Withdrawal, ED Withdrawal Alcohol Follow-Up: [facility] [place] [Provider Group] Prescriptions: chlordiazePOXIDE [Librium] 25 mg PO Q6H PRN #13 cap PRN Reason: Alcohol Withdrawal Metoprolol Succinate [Toprol Xl] 25 mg PO DAILY #30 tablet Comments: Garrett today it appears you are not atrial fibrillation and we have controlled your rate and the recommendation is to take an aspirin every day and the medication metoprolol succinate to control your rate. We have provided medication for alcohol withdrawal. I have provided a taper of Librium. Use this medication to substitute for alcohol and do not drink. You may need a fair amount of this medication the first day or two. Follow-up with the doctors at [facility] in [place] for a recheck of your atrial fibrillation in the next 2 weeks. Treatment for chronic atrial fibrillation is to be on a blood thinner. Since we do not know that this is chronic the recommendation is to take a baby aspirin daily. Your medications have been e- scirbed to [facility] in [place]. Discharge Date/Time: 08/22/21 15:29
[2021-08-22] MEDS ORDERED: THIAMINE INJ 100 MG, MAGNESIUM SULFATE 2 GM, MULTIVITAMIN 10 ML, FOLIC ACID INJ 1 MG in... IV ONE ×5 (07:31)
[2021-08-22] MEDS ORDERED: LORazepam 2 MG/ML VIAL IVP STA ×2 (07:32→12:02)
[2021-08-22] MEDS ORDERED: diltiaZEM INJ 5 MG/ML VIAL IVP STA (07:32)
[2021-08-22 07:44] LABS: ALBUMIN 4.1 g/dL (3.2-5.5); ALBUMIN/GLOBULIN RATIO 1.5 (1.0-2.2); ALKALINE PHOSPHATASE 67 IU/L (42-121); ALT ALANINE AMINOTRANSFERASE 66 IU/L (10-60); AST ASPARTATE AMINOTRANSFERASE 94 IU/L (10-42); BILIRUBIN,TOTAL 1.8 mg/dL (0.2-1.0); BUN - BLOOD UREA NITROGEN 19 mg/dL (6-20); CALCIUM 9.1 mg/dL (8.5-10.3); CARBON DIOXIDE - CO2 23 mmol/L (21-32); CHLORIDE 94 mmol/L (101-111); CREATININE 1.3 mg/dL (0.6-1.2); ETOH - ETHANOL < 5.0 mg/dL; GFR - MDRD 54 (>89); GLUCOSE 105 mg/dL (70-100); LIPASE 53 U/L (22-51); SODIUM 134 mmol/L (135-145); TOTAL PROTEIN 6.8 g/dL (6.7-8.2)
[2021-08-22 07:58] LABS: BASOPHILS # (AUTO) 0.1 10^3/uL (0.0-0.1); BASOPHILS % (AUTO) 1.3 %; EOSINOPHILS % (AUTO) 0.6 %; HCT - HEMATOCRIT 34.7 % (42.0-52.0); HGB - HEMOGLOBIN 12.1 g/dL (14.0-18.0); LYMPHOCYTES # (AUTO) 0.5 10^3/uL (1.5-3.5); LYMPHOCYTES % (AUTO) 11.2 %; MEAN CORPUSCULAR HEMOGLOBIN 33.4 pg (27.0-31.0); MEAN CORPUSCULAR HGB CONC 34.9 g/dL (32.0-36.0); MEAN CORPUSCULAR VOLUME 95.9 fL (80.0-94.0); MEAN PLATELET VOLUME 10.1 fL (7.4-11.4); MONOCYTES # (AUTO) 0.5 10^3/uL (0.0-1.0); NEUTROPHILS # (AUTO) 3.6 10^3/uL (1.5-6.6); NEUTROPHILS % (AUTO) 74.8 %; PLT - PLATELET COUNT 153 10^3/uL (130-450); RED BLOOD COUNT 3.62 10^6/uL (4.70-6.10); RED CELL DISTRIBUTION WIDTH 14.1 % (12.0-15.0); WHITE BLOOD COUNT 4.7 x10^3/uL (4.8-10.8)
[2021-08-22] MEDS ORDERED: DEXAMETHASONE 10 MG/ML VIAL IVP STA (08:55)
[2021-08-22] MEDS ORDERED: PROCAINAMIDE 100 MG/1 ML 10 ML MDV IV ONE (08:55)
[2021-08-22] MEDS ORDERED: PROCAINAMIDE 1,000 MG in SODIUM CHLORIDE 0.9% 240 ML IV STA (09:00)
[2021-08-22] MEDS ORDERED: ASPIRIN CHEW 81 MG TABLET PO STA (13:31)
[2021-08-22 15:21] VITALS: BP 118/72
== END 2021-08-22 15:29 | disposition home or self-care (01) ==
LOC: EDUNIT# → ED 06:45
DX: I48.19 Other persistent atrial fibrillation (principal)
CPT/HCPCS: 36415; 80053; 83690; 84443; 84484; 85025; 93005; 96365; 96366; 96368; 96375; 99283; 99285; A9270; G0480; J2060; J2690; J3411; 80320

== ENCOUNTER 2021-09-04 12:31 | Outpatient (CLI) | payer MEDICARE, OTHER | END 2021-09-04 12:32 | disposition critical access hospital (66) | LOC: EMS 12:31 | DX: R00.0 Tachycardia, unspecified (principal); R41.0 Disorientation, unspecified; R46.4 Slowness and poor responsiveness; R25.1 Tremor, unspecified; Z72.89 Other problems related to lifestyle | CPT/HCPCS: A0425; A0427 ==

== ENCOUNTER 2021-09-04 13:04 | Inpatient (IN) | payer MEDICARE, OTHER ==
[2021-09-04] MEDS ORDERED: diltiaZEM INJ 5 MG/ML VIAL IVP STA (13:20)
[2021-09-04] MEDS ORDERED: THIAMINE INJ 100 MG, MAGNESIUM SULFATE 2 GM, MULTIVITAMIN 10 ML, FOLIC ACID INJ 1 MG in... IV ONE ×5 (13:40)
--- NOTE | 2021-09-04 13:43 | XRAY Report ---
PROCEDURE: Chest 1 View X-Ray INDICATIONS: chest pain TECHNIQUE: One view of the chest was acquired. COMPARISON: 08/29/2020 FINDINGS: Surgical changes and devices: None. Lungs and pleura: No pleural effusions or pneumothorax. Lungs are clear. Mediastinum: Mildly tortuous thoracic aorta is seen. Heart size is normal. Bones and chest wall: No suspicious bony lesions. Overlying soft tissues appear unremarkable. IMPRESSION: No acute cardiopulmonary pathology. No significant changes from previous study. Reviewed by: Kranthi Patterson MD on 09/04/2021 1:41 PM PST Approved by: Kranthi Patterson MD on 09/04/2021 1:41 PM PST Station ID: [id number]
[2021-09-04 14:05] LABS: BASOPHILS # (AUTO) 0.1 10^3/uL (0.0-0.1); EOSINOPHILS % (AUTO) 0.4 %; HCT - HEMATOCRIT 34.3 % (42.0-52.0); HGB - HEMOGLOBIN 11.4 g/dL (14.0-18.0); LYMPHOCYTES # (AUTO) 0.7 10^3/uL (1.5-3.5); LYMPHOCYTES % (AUTO) 8.2 %; MEAN CORPUSCULAR HEMOGLOBIN 33.6 pg (27.0-31.0); MEAN CORPUSCULAR HGB CONC 33.2 g/dL (32.0-36.0); MEAN CORPUSCULAR VOLUME 101.2 fL (80.0-94.0); MEAN PLATELET VOLUME 9.9 fL (7.4-11.4); MONOCYTES # (AUTO) 0.4 10^3/uL (0.0-1.0); MONOCYTES % (AUTO) 5.2 %; NEUTROPHILS % (AUTO) 84.1 %; PLT - PLATELET COUNT 200 10^3/uL (130-450); RED BLOOD COUNT 3.39 10^6/uL (4.70-6.10); RED CELL DISTRIBUTION WIDTH 14.7 % (12.0-15.0); WHITE BLOOD COUNT 8.3 x10^3/uL (4.8-10.8)
[2021-09-04 14:38] LABS: ALBUMIN 3.6 g/dL (3.2-5.5); ALBUMIN/GLOBULIN RATIO 1.3 (1.0-2.2); BILIRUBIN,TOTAL 0.7 mg/dL (0.2-1.0); CALCIUM 8.6 mg/dL (8.5-10.3); ETOH - ETHANOL 37.9 mg/dL; MAGNESIUM 1.8 mg/dL (1.7-2.8); POTASSIUM 4.2 mmol/L (3.5-5.0); TOTAL PROTEIN 6.3 g/dL (6.7-8.2)
[2021-09-04 14:48] LABS: MUDS CUTOFF CONCENTRATIONS CUTOFF CONC BELOW:
[2021-09-04 14:51] LABS: BILIRUBIN,URINE NEGATIVE (NEGATIVE); GLUCOSE, URINE (UA) NEGATIVE (NEGATIVE); KETONES,URINE (UA) 15 mg/dL (NEGATIVE); LEUKOCYTE ESTERASE, URINE NEGATIVE (NEGATIVE); NITRITE,URINE NEGATIVE (NEGATIVE); OCCULT BLOOD,URINE NEGATIVE (NEGATIVE); PH,URINE 5.5 PH (5.0-7.5); PROTEIN,URINE NEGATIVE (NEGATIVE); UROBILINOGEN,URINE 0.2 (NORMAL) E.U./dL (NORMAL)
[2021-09-04 14:53] LABS: CLARITY,URINE CLEAR (CLEAR)
[2021-09-04 15:03] LABS: AMPHETAMINE SCREEN,URINE NEGATIVE (NEGATIVE); BARBITURATE SCREEN,UR NEGATIVE (NEGATIVE); BENZODIAZEPINES SCREEN, URINE NEGATIVE (NEGATIVE); COCAINE SCREEN URINE NEGATIVE (NEGATIVE); METHADONE SCREEN, URINE NEGATIVE (NEGATIVE); METHAMPHETAMINES SCREEN, URINE NEGATIVE (NEGATIVE); OPIATE SCREEN, URINE NEGATIVE (NEGATIVE); OXYCODONE SCREEN, URINE NEGATIVE (NEGATIVE); PROPOXYPHENE SCREEN, URINE NEGATIVE (NEGATIVE); THC CANNABINOID SCREEN, URINE NEGATIVE (NEGATIVE); TRICYCLIC ANTIDEPRESSANT,URINE NEGATIVE (NEGATIVE)
[2021-09-04 15:45] LABS: CORONAVIRUS 229E-RESP PCR NOT DETECTED; CORONAVIRUS HKU1-RESP PCR NOT DETECTED; CORONAVIRUS NL63-RESP PCR NOT DETECTED
[2021-09-04 15:46] LABS: B. PARAPERTUSSIS- RESP PCR PAN NOT DETECTED; B. PERTUSSIS- RESP PCR PANEL NOT DETECTED; C. PNEUMONIAE- RESP PCR PANEL NOT DETECTED; CORONAVIRUS OC43-RESP PCR NOT DETECTED; HUMAN METAPNEUMOVIRUS NOT DETECTED; INFLUENZA A- RESP PCR PANEL NOT DETECTED; INFLUENZA B - RESP PCR PANEL NOT DETECTED; M. PNEUMONIAE- RESP PCR PANEL NOT DETECTED; PARAINFLUENZA VIRUS 1 NOT DETECTED; PARAINFLUENZA VIRUS 2 NOT DETECTED; PARAINFLUENZA VIRUS 3 NOT DETECTED; PARAINFLUENZA VIRUS 4 NOT DETECTED; RHINOVIRUS/ENTEROVIRUS NOT DETECTED; RSV- RESP PCR PANEL NOT DETECTED; SARS-CoV-2 -RESP PCR PANEL NOT DETECTED
--- NOTE | 2021-09-04 16:05 | CT Report ---
. PROCEDURE: HEAD WO INDICATIONS: AMS TECHNIQUE: Noncontrast 4.5 mm thick angled axial sections acquired from the foramen magnum to the vertex. For r adiation dose reduction, the following was used: automated exposure control, adjustment of mA and/or kV according to patient size. COMPARISON: 08/29/2020. FINDINGS: Image quality: Excellent. CSF spaces: Basal cisterns are patent. No extra-axial fluid collections. The ventricles are symmet valentine in size and shape. Brain: No intracranial bleeds or masses. There is cerebral volume loss for age, with resultant vent ricular and sulcal prominence. There are periventricular and deep white matter chronic small vessel ischemic changes. There is intracranial internal carotid artery atherosclerosis. Skull and face: Calvarium and visualized facial bones appear intact, without suspicious lesions. Sinuses: Visualized sinuses and mastoids are clear. IMPRESSION: No acute intracranial disease process. Reviewed by: Lynne Cooley MD, PhD on 09/04/2021 4:04 PM PST Approved by: Lynne Cooley MD, PhD on 09/04/2021 4:04 PM PST Station ID: [id number]
[2021-09-04] MEDS ORDERED: ONDANSETRON ODT 4 MG TABLET TL PRN (16:08)
[2021-09-04] MEDS ORDERED: oxyCODONE 5 MG TABLET PO PRN (16:08)
[2021-09-04] MEDS ORDERED: SODIUM CHLORIDE FLUSH 0.9% 10 ML SYRINGE IVP PRN (16:08)
[2021-09-04] MEDS ORDERED: ACETAMINOPHEN 325 MG TABLET PO PRN (16:08)
[2021-09-04] MEDS ORDERED: ONDANSETRON 4 MG/2 ML VIAL IVP PRN (16:08)
--- NOTE | 2021-09-04 16:25 | HISTORY & PHYSICAL EXAMINATION ---
Chief Complaint - Chief Complaint Chief Complaint: Altered Mental Status <Linda Jean - Last Filed: 09/05/21 13:56> History of Present Illness - Admitted From Admitted From:: Home via EMS - History Obtained From Records Reviewed: [facility] History obtained from: Patient Exam Limitations: Altered Mental Status <Linda Jean - Last Filed: 09/05/21 13:56> - History of Present Illness HPI Comment/Other: 75 year old male with a history of alcoholism and atrial fibrillation presents to the ED today via EMS for altered mental status. He reports that he felt weak today and fell but he did not lose consciousness. He also had a sensation of palpitations, similar to when he has had episodes of atrial fibrillation in the past. He called EMS and they found him with three empty fifths of alcohol and a receipt for them from 08/31/21. He reports that he does not remember drinking the past few days. His alcohol level in the ED was 37.9. [facility] records show that he was discharged from [facility] in [place] 2 days ago (09/02/2021) following a 2 day admission for atrial fibrillation, shortness of breath and loss of balance. Per his discharge summary, he did not have any seizures and only required 1 dose of Ativan on the first night of his admission per [facility] protocol. He underwent a magnesium infusion for a magnesium of 1.5. He also had an elevated BNP during his admission. He has no recollection of this event. He does not remember what his withdrawals are usually like. Presently, he reports palpations, instability, tremors, and intermittent anxiety and shortness of breath. He denies nausea, vomiting, chest pain or hallucinations. He agrees that he is no longer able to take care of himself. He reports that he has had a hard time getting around the house. He admits to non-compliance with his medications. He reports that he usually has one small meal in the evening followed by a few alcoholic beverages. He reports that he usually has about 3-4 2 oz drinks a day. His has been in [place] since March with their daughter to help care for their new grandchild. He reports that the baby is 6 weeks old but chart notes show that the grandchild should be about 6 months old. Per his PCP, Dr. Chaudhary, him and his are and she is mostly unin volved with his day to day care. He has had two failed rehab attempts. In the ED he was afebrile, heart rate initially 114 but was brought down to 94. Blood pressure 156/89. Respirations 20, 100% O2 saturation on room air. His CBC showed a macrocytic anemia. AST 71/ALT 67. His UA showed dehydration with elevated ketones and specific gravity >1.030. BNP 117. Labs were otherwise unremarkable. He received thiamine and magnesium sulfate in the ED. (Linda Jean) History - Past Medical History Cardiovascular: reports: Hypertension, Atrial fibrillation Respiratory: reports: None Neuro: reports: None Endocrine/Autoimmune: reports: None GI: reports: None : reports: None HEENT: reports: None Psych: reports: None Musculoskeletal: reports: None Derm: reports: None MRSA Hx?: No - Family & Social History Family History Comment/Other: His mother had lung cancer. His father had an MO. Sister had rheumatoid arthritis and patient reports that she "from her medications." He has two daughters who are alive and well. Living arrangement: At home Living Situation: Alone Social History Notes: He lived at home with his until March 2021 when she went to [place] to help care for their grandchild. He currently lives at home alone. 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 He smoked 1 pack a day for 38 years. He quit smoking in 2003. He reports drinking 3 to 4 glasses of wine daily. He does not use any recreational substances. He is independent of activities of daily living. He has a walker but does not use it, ambulates normally without assistance. - Substance History Use Issues: Intoxication Abuse: Recurrent use of substance despite neg consequences: Alcohol Abuse Issues: Intoxication Dependence: Experiences withdrawal or developed tolerances: Alcohol - POLST Patient has POLST: No POLST Status: Full Code <Linda Jean - Last Filed: 09/05/21 13:56> Meds/Allgy <Linda Jean - Last Filed: 09/05/21 13:56> <Marian Trejo - Last Filed: 09/05/21 17:46> - Home Medications Home Medications: Ambulatory Orders Medication Instructions Recorded Confirmed Metoprolol Succinate [Toprol Xl] 25 mg PO DAILY #30 tablet 08/22/21 09/04/21 - Allergies Allergies/Adverse Reactions: Allergies Allergy/AdvReac Type Severity Reaction Status Date / Time amoxicillin Allergy Unknown Verified 09/04/21 13:14 clindamycin Allergy Unknown Verified 09/04/21 13:14 Review of Systems - Constitutional Constitutional: reports: Fatigue, Weakness, Poor appetite (admits to poor appetite, reports that he only had one small meal in the evening and then has a few drinks). denies: Fever, Chills - Eyes Eyes: denies: Blurred vision, Vision loss - Ears, Nose & Throat Ears, Nose & Throat: denies: Nasal congestion, Sore throat - Cardiovascular Cariovascular: reports: Irregular heart rate, Palpitations. denies: Chest pain, Edema, Lightheadedness, Syncope - Respiratory Respiratory: reports: SOB at rest (Report intermittent SOB). denies: Cough, Wheezing, Pleuritic pain - Gastrointestinal Gastrointestinal: reports: Poor appetite. denies: Abdominal pain, Abdominal distention, Constipation, Diarrhea, Change in bowel habits, Black stools, Bloody stools, Nausea, Vomiting - Neurological Neurological: reports: General weakness, Memory problems, Incoordination. denies: Focal weakness, Headache, Dizziness, Numbness, Seizures - Psychiatric Psychiatric: reports: Anxiety. denies: Hallucinations - All Other Systems All Other Systems: reports: Reviewed and negative <Linda Jean - Last Filed: 09/05/21 13:56> - Other Findings Other Findings: Patient admits to memory issues that may limit ROS (Linda Jean) <Linda Jean - Last Filed: 09/05/21 13:56> Prior Level of Functionality: Admits that he has had a hard time getting around and caring for himself (Linda Jean) Exam - Vital Signs Reviewed Vital Signs: Yes - Physical Exam General Appearance: positive: Alert, Mild distress, Anxious, Other (Patient became mildly anxious with shortness of breath and diaphoresis during the exam. This episode was breif and resolved quickly.) Eyes Bilateral: positive: PERRL, EOMI, Conjunctivae nml, No scleral icterus, Other (Involunary tearing from eyes) ENT: positive: ENT inspection nml, Pharynx nml, No signs of dehydration Neck: positive: Nml inspection, No JVD, Trachea midline Respiratory: positive: Chest non-tender, Breath sounds nml, Other (Patient became mildly tachypnic and short of breath during the exam) Cardiovascular: positive: Irregularly irregular. negative: Tachycardia Peripheral Pulses: positive: 2+ Abdomen: positive: Non-tender, No organomegaly, Nml bowel sounds, No distention Back: positive: Nml inspection Skin: positive: No rash, Warm, Diaphoresis (Breif episode of diaphoresis during exam which resolved.) Extremities: positive: Non-tender, Nml appearance, No pedal edema Neurologic/Psychiatric: positive: CN's nml (2-12), Sensation nml, Disoriented to time, Weakness, Other (Disoriented to event. Mild tremor) <Linda Jean - Last Filed: 09/05/21 13:56> - Vital Signs Vital Signs: Vital Signs x48h Temp Pulse Resp BP Pulse Ox 09/04/21 14:24 94 14 134/86 H 99 09/04/21 13:14 35.7 C L 114 H 20 156/89 H 100 Sepsis Event Note (H) - Evaluation Current Stage of Sepsis: Ruled out <Linda Jean - Last Filed: 09/05/21 13:56> Conclusion/Plan - Problem List (1) Metabolic encephalopathy Conclusion/Plan: Patient presents to ED today confused. He is oriented to self and place but disoriented to time and event. He reports that he does not remember drinking the past few days but his alcohol level was 37.9 in the ED. His altered mental status is likely due to his chronic alcoholism and multiple episodes of withdrawal. He has been admitted for similar episodes in the past, most recently 2 days ago. He reports that he fell today but a head CT did not show any acute intercranial process or bleed that so this is unlikely the cause of his confusion. He has no significant electrolyte derangements. He is afebrile and a normal WBC count so an infection or sepsis is also unlikely. His urine toxicology screen was negative for substances other than alcohol. Plan Administer multivitamin 10 mL/thiamine Hcl 100 mg/folic acid 1 mg in sodium chloride for possible Wernicke encephalopathy Discuss admitting him to a facility following medical clearance as he is unable to care for himself at home and lives alone. (2) EtOH dependence Conclusion/Plan: Patient has a history of alcoholism and has been admitted for withdrawals in the past. He currently has mild tremors with weakness and is intermittently anxious. Presently no seizures or hallucinations. Plan Monitor for hemodynamic instability Administer Librium and Ativan as needed per [facility] protocol Magnesium sulfate for seizure prophylaxis Qualifiers: Substance use status: in withdrawal Complication of substance-induced condition: uncomplicated Qualified Code(s): F10.230 - Alcohol dependence with withdrawal, uncomplicated (3) Alcohol abuse Conclusion/Plan: Chronic issue. He is unable to care for himself and lives alone so we will consult social work to discuss placement after this admission. (4) Atrial fibrillation Conclusion/Plan: Likely secondary to his chronic alcohol abuse. Patient is prescribed metoprolol but admits that he has not been taking it. We will administer metoprolol during admission and monitor him with telemetry strips Qualifiers: Atrial fibrillation type: persistent (not longstanding) Qualified Code(s): I48.19 - Other persistent atrial fibrillation; I48.1 - Persistent atrial fibrillation (5) General weakness Conclusion/Plan: Baseline per PCP. Secondary to chronic alcoholism and malnutrition. (6) Fall at home Conclusion/Plan: Patient reports a fall today due to "weakness" likely secondary to chronic alcoholism and malnutrition. He denies loss of consciousness. Head CT revealed no acute intercranial pathology and he has no obvious lesions or deformities. (7) Anemia Conclusion/Plan: RBC 3.39, Hgb 11.4. Macrocytic anemia, consistent with alcoholism and malnutrition Continue to administer multivitamin with thiamine and folic acid Continue to monitor CBC (8) History of heart failure Conclusion/Plan: Patient was diagnosed with diastolic heart failure during his hospital admission (08/31/21-09/02/21) likely secondary to persistent atrial fibrillation. He had an elevated BNP throughout his stay. His last echo is from 08/29/20 and shows preserved ejection fraction on the lower end of normal at 50-55%. It also showed enlarged left and right atrium and mitral regurgitation. No left ventricular hypertrophy. Today his BNP is 117, chest x-ray shows no pleural effusions, lungs sounds are clear and he has no peripheral edema. He does report being mildly short of breath which may be secondary to anxiety from alcohol withdrawals. O2 saturation 99%. His heart failure seems to have resolved at this time but we will continue to monitor for signs and symptoms of heart failure. - Lab Results Lab results reviewed: Yes Fish Bones: 09/05/21 05:40 03/02/22 05:40 - Diagnostic Imaging Results Diagnostic Imaging Results: positive: See rad report - EKG Results EKG Comparison: Unchanged from prior EKG <Linda Jean - Last Filed: 09/05/21 13:56> - Lab Results Fish Bones: 09/05/21 05:40 09/05/21 05:40 <Marian Trejo - Last Filed: 09/05/21 17:46> - Diagnostic Imaging Results Diagnostic Imaging Results Comments: No acute changes on head CT or chest x-ray (Linda Jean) - EKG Results EKG Findings: Atrial fibrillation (Linda Jean) Core Measures - Anticipated LOS I expect patient to be DC'd or transferred within 96 hours.: Yes - DVT/VTE - Prophylaxis VTE/DVT Device ordered at admit?: Yes VTE/DVT Prophylaxis med ordered at admit?: No <Linda Jean - Last Filed: 09/05/21 13:56>
[2021-09-04] MEDS ORDERED: MAGNESIUM SULFATE 2 GRAM 2 GM/50 ML BAG IV ONE ×2 (17:00→19:00)
--- NOTE | 2021-09-04 17:14 | PHARMACY PROGRESS NOTE ---
- Best Possible Medication History Admit Date and Time: 09/04/21 1608 Processed by: Nursing Medication History completed: Yes As the person ultimately responsible for medication therapy, providers are able to order a medication from an existing home medication list in [facility] via the "Reconcile Routine" prior to Confirmation of that medication by ict customer support officer. Such practice is discouraged except when the physician, in their clinical judgment, deems that a medical need exists for a medication without regard to previous use.
--- NOTE | 2021-09-04 18:01 | ED Physician Documentation ---
PD HPI ALTERED MENTAL STATUS - Stated complaint Stated Complaint: RACING HEART - Chief complaint Chief Complaint: Cardiac - Additional information Additional information: Patient is a 75-year-old male brought in by EMS for generalized weakness, fall at home, racing heart rate, altered mentation. Chart review demonstrates history alcoholism, chronic atrial fibrillation, chronic noncompliance with medications. Patient reports that he has been having "episodes" at home. States this morning got up and tried to go to his kitchen and collapsed in his kitchen and was unable to stand or walk. Is unable to describe his symptoms more clearly at this time and further history is limited by his altered mentation. Review of Systems Unable to obtain: Confused Constitutional: reports: Fever PD PAST MEDICAL HISTORY - Past Medical History Past Medical History: Yes Cardiovascular: Hypertension, Atrial fibrillation Respiratory: None Neuro: None Endocrine/Autoimmune: None GI: None : None HEENT: None Psych: None Musculoskeletal: None Derm: None - Past Surgical History Past Surgical History: No - Present Medications Home Medications: Ambulatory Orders Medication Instructions Recorded Confirmed Metoprolol Succinate [Toprol Xl] 25 mg PO DAILY #30 tablet 08/22/21 09/04/21 - Allergies Allergies/Adverse Reactions: Allergies Allergy/AdvReac Type Severity Reaction Status Date / Time amoxicillin Allergy Unknown Verified 09/04/21 13:14 clindamycin Allergy Unknown Verified 09/04/21 13:14 - Social History Does the pt smoke?: No Smoking Status: Never smoker Does the pt drink ETOH?: Yes ETOH Use: Beer, Liquor Does the pt have substance abuse?: No - Immunizations Immunizations are current?: No - POLST Patient has POLST: No POLST Status: Full Code PD ED PE NORMAL - General General: No acute distress - HEENT HEENT: Atraumatic, PERRL, Ears normal - Neck Neck: Supple, no meningeal sign - Cardiac Cardiac: Other (Irregularly irregular) - Respiratory Respiratory: No respiratory distress - Abdomen Abdomen: Normal bowel sounds, Non tender - Male Male : Deferred - Rectal Rectal: Deferred - Back Back: No CVA TTP, No spinal TTP - Derm Derm: No rash - Neuro Neuro: health systems analyst 2-12 intact, No motor deficit, No sensory deficit, Other (Patient offers one-word responses to questions, responses are often confused.) Results - Vitals Vitals: Vital Signs - 24 hr 09/04/21 09/04/21 13:14 14:24 Temperature 35.7 C L Heart Rate 114 H 94 Respiratory 20 14 Rate Blood Pressure 156/89 H 134/86 H O2 Saturation 100 99 Oxygen O2 Source Room air - EKG (time done) 1311 Rate: Rate (enter#) (132) Rhythm: Atrial fibrillation [place]: Normal Intervals: Normal [place], Prolonged QT QRS: Normal Ischemia: Normal ST segments Computer interpretation: Agree with computer - Labs Labs: Laboratory Tests 09/04/21 09/04/21 09/04/21 13:42 13:42 13:47 WBC 8.3 RBC 3.39 L Hgb 11.4 L Hct 34.3 L MCV 101.2 H MCH 33.6 H MCHC 33.2 RDW 14.7 Plt Count 200 MPV 9.9 Neut # (Auto) 7.0 H Lymph # (Auto) 0.7 L Avery # (Auto) 0.4 Eos # (Auto) 0.0 Baso # (Auto) 0.1 Absolute Nucleated RBC 0.00 Nucleated RBC % 0.0 Sodium 141 Potassium 4.2 Chloride 106 Carbon Dioxide 20 L Anion Gap 15.0 H BUN 22 H Creatinine 1.0 Estimated GFR (MDRD) 73 L Glucose 126 H Calcium 8.6 Magnesium 1.8 Total Bilirubin 0.7 AST 71 H ALT 67 H Alkaline Phosphatase 66 B-Natriuretic Peptide Total Protein 6.3 L Albumin 3.6 Globulin 2.7 Albumin/Globulin Ratio 1.3 TSH 0.46 Urine Color Urine Clarity Urine pH Ur Specific [place] Urine Protein Urine Glucose (UA) Urine Ketones Urine Occult Blood Urine Nitrite Urine Bilirubin Urine Urobilinogen Ur Leukocyte Esterase Ur Microscopic Review Urine Culture Comments Nasal Adenovirus (PCR) Nasal B. parapertussis DNA (PCR) Nasal Coronavir 229E PCR Nasal Coronavir HKU1 PCR Nasal Coronavir NL63 PCR Nasal Coronavir OC43 PCR Nasal Enterovir/Rhinovir PCR Nasal Influenza B PCR Nasal Influenza A PCR Nasal Parainfluen 1 PCR Nasal Parainfluen 2 PCR Nasal Parainfluen 3 PCR Nasal Parainfluen 4 PCR Nasal RSV (PCR) Nasal B.pertussis DNA PCR Nasal C.pneumoniae (PCR) Servando Human Metapneumo PCR Nasal M.pneumoniae (PCR) Nasal SARS-CoV-2 (PCR) Urine Opiates Screen Ur Oxycodone Screen Urine Methadone Screen Ur Propoxyphene Screen Ur Barbiturates Screen Ur Tricyclics Screen Ur Phencyclidine Scrn Ur Amphetamine Screen U Methamphetamines Scrn U Benzodiazepines Scrn Urine Cocaine Screen U Cannabinoids Screen Ethyl Alcohol 37.9 09/04/21 09/04/21 09/04/21 13:58 14:25 14:40 WBC RBC Hgb Hct MCV MCH MCHC RDW Plt Count MPV Neut # (Auto) Lymph # (Auto) A[place] # (Auto) Eos # (Auto) Baso # (Auto) Absolute Nucleated RBC Nucleated RBC % Sodium Potassium Chloride Carbon Dioxide Anion Gap BUN Creatinine Estimated GFR (MDRD) Glucose Calcium Magnesium Total Bilirubin AST ALT Alkaline Phosphatase B-Natriuretic Peptide 117 H Total Protein Albumin Globulin Albumin/Globulin Ratio TSH Urine Color YELLOW Urine Clarity CLEAR Urine pH 5.5 Ur Specific [place] >=1.030 H Urine Protein NEGATIVE Urine Glucose (UA) NEGATIVE Urine Ketones 15 H Urine Occult Blood NEGATIVE Urine Nitrite NEGATIVE Urine Bilirubin NEGATIVE Urine Urobilinogen 0.2 (NORMAL) Ur Leukocyte Esterase NEGATIVE Ur Microscopic Review NOT INDICATED Urine Culture Comments NOT INDICATED Nasal Adenovirus (PCR) NOT DETECTED Nasal B. parapertussis DNA (PCR) NOT DETECTED Nasal Coronavir 229E PCR NOT DETECTED Nasal Coronavir HKU1 PCR NOT DETECTED Nasal Coronavir NL63 PCR NOT DETECTED Nasal Coronavir OC43 PCR NOT DETECTED Nasal Enterovir/Rhinovir PCR NOT DETECTED Nasal Influenza B PCR NOT DETECTED Nasal Influenza A PCR NOT DETECTED Nasal Parainfluen 1 PCR NOT DETECTED Nasal Parainfluen 2 PCR NOT DETECTED Nasal Parainfluen 3 PCR NOT DETECTED Nasal Parainfluen 4 PCR NOT DETECTED Nasal RSV (PCR) NOT DETECTED Nasal B.pertussis DNA PCR NOT DETECTED Nasal C.pneumoniae (PCR) NOT DETECTED Servando Human Metapneumo PCR NOT DETECTED Nasal M.pneumoniae (PCR) NOT DETECTED Nasal SARS-CoV-2 (PCR) NOT DETECTED Urine Opiates Screen NEGATIVE Ur Oxycodone Screen NEGATIVE Urine Methadone Screen NEGATIVE Ur Propoxyphene Screen NEGATIVE Ur Barbiturates Screen NEGATIVE Ur Tricyclics Screen NEGATIVE Ur Phencyclidine Scrn NEGATIVE Ur Amphetamine Screen NEGATIVE U Methamphetamines Scrn NEGATIVE U Benzodiazepines Scrn NEGATIVE Urine Cocaine Screen NEGATIVE U Cannabinoids Screen NEGATIVE Ethyl Alcohol PD MEDICAL DECISION MAKING - ED course Complexity details: reviewed results, d/w patient, d/w senior wind energy consultant ED course: Patient is 75-year-old male presenting to the emergency department with generalized weakness in setting of longstanding history of alcohol abuse, chronic atrial fibrillation, chronic noncompliance with medications. Afebrile, hemodynamically stable on arrival to the emergency department. In atrial fibrillation with low level tachycardia which resolved without medications. Patient was initially significantly confused and had a difficult time answering questions, appeared disorientated. IV fluids and electrolytes were given in the emergency department. CT head nonacute. This confusion did seem to improve and patient was more communicative when I reevaluated him. Comprehensive labs demonstrated positive blood ethanol but were otherwise within normal limits or nonactionable. Case was discussed with the hospital service. At this time patient will be hospitalized for further evaluation and treatment. Departure - Departure Disposition: ED Place in Observation Clinical Impression: Metabolic encephalopathy, Alcohol abuse, General weakness, Fall at home Discharge Date/Time: 09/04/21 17:34
[2021-09-04] MEDS: chlordiazePOXIDE 5 MG CAPSULE PO SCH ×2 (18:28→23:39)
[2021-09-04] MEDS: SODIUM CHLORIDE FLUSH 0.9% 10 ML SYRINGE IVP SCH ×2 (18:28→23:39)
[2021-09-04] MEDS ORDERED: LORazepam 2 MG/ML VIAL IVP PRN (19:26)
[2021-09-04] MEDS ORDERED: ZINC OXIDE 20% OINT 30 GM TUBE TOP PRN (21:32)
[2021-09-05] MEDS: chlordiazePOXIDE 5 MG CAPSULE PO SCH ×4 (05:30→23:47)
[2021-09-05 05:46] LABS: BASOPHILS # (AUTO) 0.1 10^3/uL (0.0-0.1); BASOPHILS % (AUTO) 1.1 %; EOSINOPHILS # (AUTO) 0.2 10^3/uL (0.0-0.7); EOSINOPHILS % (AUTO) 2.7 %; HCT - HEMATOCRIT 31.1 % (42.0-52.0); HGB - HEMOGLOBIN 10.6 g/dL (14.0-18.0); LYMPHOCYTES # (AUTO) 1.1 10^3/uL (1.5-3.5); MEAN CORPUSCULAR HEMOGLOBIN 34.1 pg (27.0-31.0); MEAN CORPUSCULAR HGB CONC 34.1 g/dL (32.0-36.0); MEAN PLATELET VOLUME 10.1 fL (7.4-11.4); MONOCYTES # (AUTO) 0.7 10^3/uL (0.0-1.0); MONOCYTES % (AUTO) 9.9 %; NEUTROPHILS # (AUTO) 4.5 10^3/uL (1.5-6.6); NEUTROPHILS % (AUTO) 68.7 %; PLT - PLATELET COUNT 180 10^3/uL (130-450); RED BLOOD COUNT 3.11 10^6/uL (4.70-6.10); WHITE BLOOD COUNT 6.6 x10^3/uL (4.8-10.8)
[2021-09-05 05:48] LABS: PT - PROTHROMBIN TIME 11.2 secs (9.9-12.6)
[2021-09-05 05:58] LABS: ALBUMIN/GLOBULIN RATIO 1.2 (1.0-2.2); ALKALINE PHOSPHATASE 54 IU/L (42-121); ALT ALANINE AMINOTRANSFERASE 45 IU/L (10-60); AST ASPARTATE AMINOTRANSFERASE 39 IU/L (10-42); BILIRUBIN,TOTAL 0.9 mg/dL (0.2-1.0); BUN - BLOOD UREA NITROGEN 21 mg/dL (6-20); CALCIUM 7.9 mg/dL (8.5-10.3); CARBON DIOXIDE - CO2 22 mmol/L (21-32); CHLORIDE 102 mmol/L (101-111); CREATININE 0.9 mg/dL (0.6-1.2); ETOH - ETHANOL < 5.0 mg/dL; GFR - MDRD 82 (>89); GLUCOSE 90 mg/dL (70-100); POTASSIUM 4.3 mmol/L (3.5-5.0); SODIUM 133 mmol/L (135-145); TOTAL PROTEIN 5.5 g/dL (6.7-8.2)
[2021-09-05] MEDS: SODIUM CHLORIDE FLUSH 0.9% 10 ML SYRINGE IVP SCH ×3 (08:43→23:47)
[2021-09-05] MEDS ORDERED: MULTIVITAMIN 10 ML, THIAMINE INJ 100 MG, FOLIC ACID INJ 1 MG in SODIUM CHLORIDE 0.9% 1,... IV SCH (09:00)
--- NOTE | 2021-09-05 10:18 | PROVIDER PROGRESS NOTE ---
Subjective - Prog Note Date Prog Note Date: 09/05/21 Prog Note Time: 12:30 - Subjective Pt reports feeling: Improved Subjective: Patient reported feeling a little short of breath and anxious this morning but says that he is feeling better this afternoon. He likes being out of bed and sitting up in the chair. He has been eating well and is enjoying the food here. He denies abdominal pain, nausea, vomiting or hallucinations. He reports that his palpitations have also improved. He got up with physical therapy and he believes it went well but cannot remember exactly what they did. Current Medications - Current Medications Current Medications: Active Medications Acetaminophen (Acetaminophen 325 Mg Tablet) 650 mg PO Q4HR PRN PRN Reason: Pain 1 to 4 Chlordiazepoxide HCl (Chlordiazepoxide 5 Mg Capsule) 10 mg PO Q6HR [facility] Last Admin: 09/05/21 05:30 Dose: 10 mg Multivitamins 10 ml/ Thiamine HCl 100 mg/ Folic Acid 1 mg/Sodium Chloride 1,011.2 mls @ 100 mls/hr IV DAILY [facility] Last Admin: 09/05/21 08:43 Dose: 100 mls/hr Lorazepam (Lorazepam 2 Mg/Ml Vial) 1 mg IVP Q30M PRN; Protocol PRN Reason: CIWA >8 Last Admin: 09/04/21 19:43 Dose: 1 mg Metoprolol Tartrate (Metoprolol Tartrate 25 Mg Tablet) 25 mg PO BID [facility] Multi-Ingredient Ointment (Zinc Oxide 20% Oint 30 Gm Tube) 1 applic TOP PRN PRN PRN Reason: Skin Care Ondansetron HCl (Ondansetron Odt 4 Mg Tablet) 4 mg TL Q6HR PRN PRN Reason: Nausea / Vomiting Ondansetron HCl (Ondansetron 4 Mg/2 Ml Vial) 4 mg IVP Q6HR PRN PRN Reason: Nausea / Vomiting Oxycodone HCl (Oxycodone 5 Mg Tablet) 5 mg PO Q4HR PRN PRN Reason: Pain 5 to 7 Sodium Chloride (Sodium Chloride Flush 0.9% 10 Ml Syringe) 10 ml IVP PRN PRN PRN Reason: NEEDED PER PROVIDER ORDERS Sodium Chloride (Sodium Chloride Flush 0.9% 10 Ml Syringe) 10 ml IVP 0100,0900,1700 [facility] Last Admin: 09/05/21 08:43 Dose: 10 ml Objective - Vital Signs/Intake & Output Reviewed Vital Signs: Yes Vital Signs: Vital Signs x48h Temp Pulse Resp BP BP Pulse Ox 09/05/21 07:27 36.8 C 87 18 126/77 96 09/05/21 05:00 36.3 C L 88 16 120/79 95 Intake & Output: Intake & Output 09/02/21 09/03/21 09/04/21 09/05/21 23:59 23:59 23:59 23:59 Intake Total 2021.2 820 Output Total 320 375 Balance 1701.2 445 - Objective General Appearance: positive: No acute distress, Alert, Other (Sitting up in chair) Eyes Bilateral: positive: Normal inspection, PERRL, EOMI, Conjunctivae nml, No scleral icterus ENT: positive: ENT inspection nml, No signs of dehydration Neck: positive: Nml inspection, No JVD, Trachea midline Respiratory: positive: Chest non-tender, No respiratory distress, Breath sounds nml Cardiovascular: positive: No gallop, Irregularly irregular, Systolic murmur. negative: Tachycardia, Diastolic murmur Abdomen: positive: Non-tender, No organomegaly, Nml bowel sounds, No distention Skin: positive: Color nml, Warm, Dry Extremities: positive: Nml appearance, No pedal edema Neurologic/Psychiatric: positive: CN's nml (2-12), Sensation nml, Disoriented to time, Weakness, Other (Disoriented to event. Mild tremor.). negative: Disoriented to person, Disoriented to place - Lab Results Fish Bones: 09/05/21 05:40 09/05/21 05:40 Other Labs: Lab Results x24hrs 09/05/21 09/05/21 09/05/21 Range/Units 05:40 05:40 05:40 WBC 6.6 (4.8-10.8) x10^3/uL RBC 3.11 L (4.70-6.10) 10^6/uL Hgb 10.6 L (14.0-18.0) g/dL Hct 31.1 L (42.0-52.0) % MCV 100.0 H (80.0-94.0) fL MCH 34.1 H (27.0-31.0) pg MCHC 34.1 (32.0-36.0) g/dL RDW 15.0 (12.0-15.0) % Plt Count 180 (130-450) 10^3/uL MPV 10.1 (7.4-11.4) fL Neut # (Auto) 4.5 (1.5-6.6) 10^3/uL Lymph # (Auto) 1.1 L (1.5-3.5) 10^3/uL Mills # (Auto) 0.7 (0.0-1.0) 10^3/uL Eos # (Auto) 0.2 (0.0-0.7) 10^3/uL Baso # (Auto) 0.1 (0.0-0.1) 10^3/uL Absolute Nucleated RBC 0.00 x10^3/uL Nucleated RBC % 0.0 /100WBC PT 11.2 (9.9-12.6) secs INR 1.0 (0.8-1.2) Sodium 133 L (135-145) mmol/L Potassium 4.3 (3.5-5.0) mmol/L Chloride 102 (101-111) mmol/L Carbon Dioxide 22 (21-32) mmol/L Anion Gap 9.0 (6-13) BUN 21 H (6-20) mg/dL Creatinine 0.9 (0.6-1.2) mg/dL Estimated GFR (MDRD) 82 L (>89) Glucose 90 (70-100) mg/dL Calcium 7.9 L (8.5-10.3) mg/dL Magnesium (1.7-2.8) mg/dL Total Bilirubin 0.9 (0.2-1.0) mg/dL AST 39 (10-42) IU/L ALT 45 (10-60) IU/L Alkaline Phosphatase 54 (42-121) IU/L Ammonia (7-35) umol/L B-Natriuretic Peptide (5-100) pg/mL Total Protein 5.5 L (6.7-8.2) g/dL Albumin 3.0 L (3.2-5.5) g/dL Globulin 2.5 (2.1-4.2) g/dL Albumin/Globulin Ratio 1.2 (1.0-2.2) TSH (0.34-5.60) uIU/mL Urine Color Urine Clarity (CLEAR) Urine pH (5.0-7.5) PH Ur Specific [place] (1.002-1.030) Urine Protein (NEGATIVE) mg/dL Urine Glucose (UA) (NEGATIVE) mg/dL Urine Ketones (NEGATIVE) mg/dL Urine Occult Blood (NEGATIVE) Urine Nitrite (NEGATIVE) Urine Bilirubin (NEGATIVE) Urine Urobilinogen (NORMAL) E.U./dL Ur Leukocyte Esterase (NEGATIVE) Ur Microscopic Review Urine Culture Comments Nasal Adenovirus (PCR) Nasal B. parapertussis DNA (PCR) Nasal Coronavir 229E PCR Nasal Coronavir HKU1 PCR Nasal Coronavir NL63 PCR Nasal Coronavir OC43 PCR Nasal Enterovir/Rhinovir PCR Nasal Influenza B PCR Nasal Influenza A PCR Nasal Parainfluen 1 PCR Nasal Parainfluen 2 PCR Nasal Parainfluen 3 PCR Nasal Parainfluen 4 PCR Nasal RSV (PCR) Nasal B.pertussis DNA PCR Nasal C.pneumoniae (PCR) Servando Human Metapneumo PCR Nasal M.pneumoniae (PCR) Nasal SARS-CoV-2 (PCR) Urine Opiates Screen (NEGATIVE) Ur Oxycodone Screen (NEGATIVE) Urine Methadone Screen (NEGATIVE) Ur Propoxyphene Screen (NEGATIVE) Ur Barbiturates Screen (NEGATIVE) Ur Tricyclics Screen (NEGATIVE) Ur Phencyclidine Scrn (NEGATIVE) Ur Amphetamine Screen (NEGATIVE) U Methamphetamines Scrn (NEGATIVE) U Benzodiazepines Scrn (NEGATIVE) Urine Cocaine Screen (NEGATIVE) U Cannabinoids Screen (NEGATIVE) Ethyl Alcohol < 5.0 mg/dL 09/04/21 09/04/21 09/04/21 Range/Units 21:07 14:40 14:25 WBC (4.8-10.8) x10^3/uL RBC (4.70-6.10) 10^6/uL Hgb (14.0-18.0) g/dL Hct (42.0-52.0) % MCV (80.0-94.0) fL MCH (27.0-31.0) pg MCHC (32.0-36.0) g/dL RDW (12.0-15.0) % Plt Count (130-450) 10^3/uL MPV (7.4-11.4) fL Neut # (Auto) (1.5-6.6) 10^3/uL Lymph # (Auto) (1.5-3.5) 10^3/uL Mills # (Auto) (0.0-1.0) 10^3/uL Eos # (Auto) (0.0-0.7) 10^3/uL Baso # (Auto) (0.0-0.1) 10^3/uL Absolute Nucleated RBC x10^3/uL Nucleated RBC % /100WBC PT (9.9-12.6) secs INR (0.8-1.2) Sodium (135-145) mmol/L Potassium (3.5-5.0) mmol/L Chloride (101-111) mmol/L Carbon Dioxide (21-32) mmol/L Anion Gap (6-13) BUN (6-20) mg/dL Creatinine (0.6-1.2) mg/dL Estimated GFR (MDRD) (>89) Glucose (70-100) mg/dL Calcium (8.5-10.3) mg/dL Magnesium (1.7-2.8) mg/dL Total Bilirubin (0.2-1.0) mg/dL AST (10-42) IU/L ALT (10-60) IU/L Alkaline Phosphatase (42-121) IU/L Ammonia 18.4 (7-35) umol/L B-Natriuretic Peptide (5-100) pg/mL Total Protein (6.7-8.2) g/dL Albumin (3.2-5.5) g/dL Globulin (2.1-4.2) g/dL Albumin/Globulin Ratio (1.0-2.2) TSH (0.34-5.60) uIU/mL Urine Color YELLOW Urine Clarity CLEAR (CLEAR) Urine pH 5.5 (5.0-7.5) PH Ur Specific [place] >=1.030 H (1.002-1.030) Urine Protein NEGATIVE (NEGATIVE) mg/dL Urine Glucose (UA) NEGATIVE (NEGATIVE) mg/dL Urine Ketones 15 H (NEGATIVE) mg/dL Urine Occult Blood NEGATIVE (NEGATIVE) Urine Nitrite NEGATIVE (NEGATIVE) Urine Bilirubin NEGATIVE (NEGATIVE) Urine Urobilinogen 0.2 (NORMAL) (NORMAL) E.U./dL Ur Leukocyte Esterase NEGATIVE (NEGATIVE) Ur Microscopic Review NOT INDICATED Urine Culture Comments NOT INDICATED Nasal Adenovirus (PCR) NOT DETECTED Nasal B. parapertussis DNA (PCR) NOT DETECTED Nasal Coronavir 229E PCR NOT DETECTED Nasal Coronavir HKU1 PCR NOT DETECTED Nasal Coronavir NL63 PCR NOT DETECTED Nasal Coronavir OC43 PCR NOT DETECTED Nasal Enterovir/Rhinovir PCR NOT DETECTED Nasal Influenza B PCR NOT DETECTED Nasal Influenza A PCR NOT DETECTED Nasal Parainfluen 1 PCR NOT DETECTED Nasal Parainfluen 2 PCR NOT DETECTED Nasal Parainfluen 3 PCR NOT DETECTED Nasal Parainfluen 4 PCR NOT DETECTED Nasal RSV (PCR) NOT DETECTED Nasal B.pertussis DNA PCR NOT DETECTED Nasal C.pneumoniae (PCR) NOT DETECTED Servando Human Metapneumo PCR NOT DETECTED Nasal M.pneumoniae (PCR) NOT DETECTED Nasal SARS-CoV-2 (PCR) NOT DETECTED Urine Opiates Screen NEGATIVE (NEGATIVE) Ur Oxycodone Screen NEGATIVE (NEGATIVE) Urine Methadone Screen NEGATIVE (NEGATIVE) Ur Propoxyphene Screen NEGATIVE (NEGATIVE) Ur Barbiturates Screen NEGATIVE (NEGATIVE) Ur Tricyclics Screen NEGATIVE (NEGATIVE) Ur Phencyclidine Scrn NEGATIVE (NEGATIVE) Ur Amphetamine Screen NEGATIVE (NEGATIVE) U Methamphetamines Scrn NEGATIVE (NEGATIVE) U Benzodiazepines Scrn NEGATIVE (NEGATIVE) Urine Cocaine Screen NEGATIVE (NEGATIVE) U Cannabinoids Screen NEGATIVE (NEGATIVE) Ethyl Alcohol mg/dL 09/04/21 09/04/21 09/04/21 Range/Units 13:58 13:47 13:42 WBC (4.8-10.8) x10^3/uL RBC (4.70-6.10) 10^6/uL Hgb (14.0-18.0) g/dL Hct (42.0-52.0) % MCV (80.0-94.0) fL MCH (27.0-31.0) pg MCHC (32.0-36.0) g/dL RDW (12.0-15.0) % Plt Count (130-450) 10^3/uL MPV (7.4-11.4) fL Neut # (Auto) (1.5-6.6) 10^3/uL Lymph # (Auto) (1.5-3.5) 10^3/uL Mills # (Auto) (0.0-1.0) 10^3/uL Eos # (Auto) (0.0-0.7) 10^3/uL Baso # (Auto) (0.0-0.1) 10^3/uL Absolute Nucleated RBC x10^3/uL Nucleated RBC % /100WBC PT (9.9-12.6) secs INR (0.8-1.2) Sodium 141 (135-145) mmol/L Potassium 4.2 (3.5-5.0) mmol/L Chloride 106 (101-111) mmol/L Carbon Dioxide 20 L (21-32) mmol/L Anion Gap 15.0 H (6-13) BUN 22 H (6-20) mg/dL Creatinine 1.0 (0.6-1.2) mg/dL Estimated GFR (MDRD) 73 L (>89) Glucose 126 H (70-100) mg/dL Calcium 8.6 (8.5-10.3) mg/dL Magnesium 1.8 (1.7-2.8) mg/dL Total Bilirubin 0.7 (0.2-1.0) mg/dL AST 71 H (10-42) IU/L ALT 67 H (10-60) IU/L Alkaline Phosphatase 66 (42-121) IU/L Ammonia (7-35) umol/L B-Natriuretic Peptide 117 H (5-100) pg/mL Total Protein 6.3 L (6.7-8.2) g/dL Albumin 3.6 (3.2-5.5) g/dL Globulin 2.7 (2.1-4.2) g/dL Albumin/Globulin Ratio 1.3 (1.0-2.2) TSH 0.46 (0.34-5.60) uIU/mL Urine Color Urine Clarity (CLEAR) Urine pH (5.0-7.5) PH Ur Specific [place] (1.002-1.030) Urine Protein (NEGATIVE) mg/dL Urine Glucose (UA) (NEGATIVE) mg/dL Urine Ketones (NEGATIVE) mg/dL Urine Occult Blood (NEGATIVE) Urine Nitrite (NEGATIVE) Urine Bilirubin (NEGATIVE) Urine Urobilinogen (NORMAL) E.U./dL Ur Leukocyte Esterase (NEGATIVE) Ur Microscopic Review Urine Culture Comments Nasal Adenovirus (PCR) Nasal B. parapertussis DNA (PCR) Nasal Coronavir 229E PCR Nasal Coronavir HKU1 PCR Nasal Coronavir NL63 PCR Nasal Coronavir OC43 PCR Nasal Enterovir/Rhinovir PCR Nasal Influenza B PCR Nasal Influenza A PCR Nasal Parainfluen 1 PCR Nasal Parainfluen 2 PCR Nasal Parainfluen 3 PCR Nasal Parainfluen 4 PCR Nasal RSV (PCR) Nasal B.pertussis DNA PCR Nasal C.pneumoniae (PCR) Servando Human Metapneumo PCR Nasal M.pneumoniae (PCR) Nasal SARS-CoV-2 (PCR) Urine Opiates Screen (NEGATIVE) Ur Oxycodone Screen (NEGATIVE) Urine Methadone Screen (NEGATIVE) Ur Propoxyphene Screen (NEGATIVE) Ur Barbiturates Screen (NEGATIVE) Ur Tricyclics Screen (NEGATIVE) Ur Phencyclidine Scrn (NEGATIVE) Ur Amphetamine Screen (NEGATIVE) U Methamphetamines Scrn (NEGATIVE) U Benzodiazepines Scrn (NEGATIVE) Urine Cocaine Screen (NEGATIVE) U Cannabinoids Screen (NEGATIVE) Ethyl Alcohol 37.9 mg/dL 09/04/21 Range/Units 13:42 WBC 8.3 (4.8-10.8) x10^3/uL RBC 3.39 L (4.70-6.10) 10^6/uL Hgb 11.4 L (14.0-18.0) g/dL Hct 34.3 L (42.0-52.0) % MCV 101.2 H (80.0-94.0) fL MCH 33.6 H (27.0-31.0) pg MCHC 33.2 (32.0-36.0) g/dL RDW 14.7 (12.0-15.0) % Plt Count 200 (130-450) 10^3/uL MPV 9.9 (7.4-11.4) fL Neut # (Auto) 7.0 H (1.5-6.6) 10^3/uL Lymph # (Auto) 0.7 L (1.5-3.5) 10^3/uL Mills # (Auto) 0.4 (0.0-1.0) 10^3/uL Eos # (Auto) 0.0 (0.0-0.7) 10^3/uL Baso # (Auto) 0.1 (0.0-0.1) 10^3/uL Absolute Nucleated RBC 0.00 x10^3/uL Nucleated RBC % 0.0 /100WBC PT (9.9-12.6) secs INR (0.8-1.2) Sodium (135-145) mmol/L Potassium (3.5-5.0) mmol/L Chloride (101-111) mmol/L Carbon Dioxide (21-32) mmol/L Anion Gap (6-13) BUN (6-20) mg/dL Creatinine (0.6-1.2) mg/dL Estimated GFR (MDRD) (>89) Glucose (70-100) mg/dL Calcium (8.5-10.3) mg/dL Magnesium (1.7-2.8) mg/dL Total Bilirubin (0.2-1.0) mg/dL AST (10-42) IU/L ALT (10-60) IU/L Alkaline Phosphatase (42-121) IU/L Ammonia (7-35) umol/L B-Natriuretic Peptide (5-100) pg/mL Total Protein (6.7-8.2) g/dL Albumin (3.2-5.5) g/dL Globulin (2.1-4.2) g/dL Albumin/Globulin Ratio (1.0-2.2) TSH (0.34-5.60) uIU/mL Urine Color Urine Clarity (CLEAR) Urine pH (5.0-7.5) PH Ur Specific [place] (1.002-1.030) Urine Protein (NEGATIVE) mg/dL Urine Glucose (UA) (NEGATIVE) mg/dL Urine Ketones (NEGATIVE) mg/dL Urine Occult Blood (NEGATIVE) Urine Nitrite (NEGATIVE) Urine Bilirubin (NEGATIVE) Urine Urobilinogen (NORMAL) E.U./dL Ur Leukocyte Esterase (NEGATIVE) Ur Microscopic Review Urine Culture Comments Nasal Adenovirus (PCR) Nasal B. parapertussis DNA (PCR) Nasal Coronavir 229E PCR Nasal Coronavir HKU1 PCR Nasal Coronavir NL63 PCR Nasal Coronavir OC43 PCR Nasal Enterovir/Rhinovir PCR Nasal Influenza B PCR Nasal Influenza A PCR Nasal Parainfluen 1 PCR Nasal Parainfluen 2 PCR Nasal Parainfluen 3 PCR Nasal Parainfluen 4 PCR Nasal RSV (PCR) Nasal B.pertussis DNA PCR Nasal C.pneumoniae (PCR) Servando Human Metapneumo PCR Nasal M.pneumoniae (PCR) Nasal SARS-CoV-2 (PCR) Urine Opiates Screen (NEGATIVE) Ur Oxycodone Screen (NEGATIVE) Urine Methadone Screen (NEGATIVE) Ur Propoxyphene Screen (NEGATIVE) Ur Barbiturates Screen (NEGATIVE) Ur Tricyclics Screen (NEGATIVE) Ur Phencyclidine Scrn (NEGATIVE) Ur Amphetamine Screen (NEGATIVE) U Methamphetamines Scrn (NEGATIVE) U Benzodiazepines Scrn (NEGATIVE) Urine Cocaine Screen (NEGATIVE) U Cannabinoids Screen (NEGATIVE) Ethyl Alcohol mg/dL ABX Reporting Has patient been on IV antibiotics over the past 48 hours?: No Sepsis Event Note (H) - Evaluation Current Stage of Sepsis: Ruled out Assessment/Plan - Problem List (1) Metabolic encephalopathy Impression: Patient continues to be confused today with poor short term memory. He is oriented to self and place but disoriented to time and event. His altered mental status is likely due to his chronic alcoholism and multiple episodes of withdrawal. He has been admitted for similar episodes in the past, most recently [address] did not show any acute intercranial process or bleed that so this is unlikely the cause of his confusion. He has no significant electrolyte derangements. He is afebrile and a normal WBC count so an infection or sepsis is also unlikely. His urine toxicology screen was negative for substances other than alcohol. Plan Continue to administration of multivitamin 10 mL/thiamine Hcl 100 mg/folic acid 1 mg in sodium chloride IV for possible Wernicke encephalopathy Social work will consult for admittance to a facility following medical clearance as he is unable to care for himself at home and lives alone. PT/OT today to assess mobility (2) EtOH dependence Impression: Patient has a history of alcoholism and has been admitted for withdrawals in the past. He currently has mild tremors with weakness and is intermittently anxious. Presently no seizures or hallucinations. EtOh today <5.0. We spoke to his PCP, Dr. Chaudhary today who reports that his alcohol withdrawal has been so severe in the past that he required intubation. Plan Monitor for hemodynamic instability Administer Librium and Ativan as needed per CIWA protocol Qualifiers: Substance use status: in withdrawal Complication of substance-induced condition: uncomplicated Qualified Code(s): F10.230 - Alcohol dependence with withdrawal, uncomplicated (3) Alcohol abuse Impression: Chronic issue, 2 failed rehab attempts. Unable to care for self at home and lives alone. We will work with social work to find a placement for him following this admission. (4) Atrial fibrillation Impression: Rhythm strip continues to show rate controlled atrial fibrillation. Likely secondary to his chronic alcohol abuse. We will administer metoprolol during admission and monitor him with telemetry strips. Qualifiers: Atrial fibrillation type: persistent (not longstanding) Qualified Code(s): I48.19 - Other persistent atrial fibrillation; I48.1 - Persistent atrial fibrillation (5) General weakness Impression: Baseline per PCP. Secondary to chronic alcoholism and malnutrition. (6) Fall at home Impression: Fall at home yesterday likely due to weakness from chronic alcoholism and malnutrition. Head CT shows no acute intercranial pathology. (7) Anemia Impression: Hgb 10.6 today. Macrocytic anemia, consistent with alcoholism and malnutrition Continue to administer multivitamin with thiamine and folic acid Continue to monitor CBC (8) History of heart failure Impression: Patient was diagnosed with diastolic heart failure during his hospital admission (08/31/21-09/02/21) likely secondary to persistent atrial fibrillation. He had an elevated BNP throughout his stay. His last echo is from 08/29/20 and shows preserved ejection fraction on the lower end of normal at 50-55%. It also showed enlarged left and right atrium and mitral regurgitation. No left ventricular hypertrophy. His heart failure seems to have resolved at this time, chest x-ray shows no pleural effusions, lung sounds are clear, no peripheral edema and he is not currently short of breath but we will continue to monitor for signs and symptoms of heart failure.
[2021-09-05] MEDS: METOPROLOL TARTRATE 25 MG TABLET PO SCH ×2 (12:21→21:27)
[2021-09-06] MEDS: chlordiazePOXIDE 5 MG CAPSULE PO SCH ×3 (06:15→17:45)
[2021-09-06] MEDS: polyethylene glycoL 3350 17 GM PACKET PO SCH (08:40)
[2021-09-06] MEDS: METOPROLOL TARTRATE 25 MG TABLET PO SCH ×2 (08:40→21:00)
[2021-09-06] MEDS: SODIUM CHLORIDE FLUSH 0.9% 10 ML SYRINGE IVP SCH ×2 (08:41→17:43)
[2021-09-06] MEDS: PRENATAL VITAMIN TABLET PO SCH (08:41)
[2021-09-06] MEDS: THIAMINE 100 MG TABLET PO SCH (08:41)
[2021-09-06 09:35] LABS: FOLATE 19.46 ng/mL (5.90 - >24.8)
--- NOTE | 2021-09-06 12:20 | PROVIDER PROGRESS NOTE ---
Subjective - Prog Note Date Prog Note Date: 09/06/21 - Subjective Pt reports feeling: Improved Subjective: Patient reports that he is feeling well today. He is a little stressed about his current situation as he would like to go home but has been told that he cannot leave yet. He knows that he was initially here for palpitations but still does not recall his hospitalization in [facility] 1 week ago. He reports that he is eating "too well" and would like to exercise. He presently denies palpitations, weakness, instability, shortness of breath, chest pain, tremors, hallucinations, nausea or vomiting. When told that his has filed for divorce he is shocked and says that he has no recollection of this. Current Medications - Current Medications Current Medications: Active Medications Acetaminophen (Acetaminophen 325 Mg Tablet) 650 mg PO Q4HR PRN PRN Reason: Pain 1 to 4 Chlordiazepoxide HCl (Chlordiazepoxide 5 Mg Capsule) 10 mg PO Q6HR [facility] Last Admin: 09/06/21 06:15 Dose: 10 mg Lorazepam (Lorazepam 2 Mg/Ml Vial) 1 mg IVP Q30M PRN; Protocol PRN Reason: CIWA >8 Last Admin: 09/04/21 19:43 Dose: 1 mg Metoprolol Tartrate (Metoprolol Tartrate 25 Mg Tablet) 25 mg PO BID [facility] Last Admin: 09/06/21 08:40 Dose: 25 mg Multi-Ingredient Ointment (Zinc Oxide 20% Oint 30 Gm Tube) 1 applic TOP PRN PRN PRN Reason: Skin Care Ondansetron HCl (Ondansetron Odt 4 Mg Tablet) 4 mg TL Q6HR PRN PRN Reason: Nausea / Vomiting Ondansetron HCl (Ondansetron 4 Mg/2 Ml Vial) 4 mg IVP Q6HR PRN PRN Reason: Nausea / Vomiting Oxycodone HCl (Oxycodone 5 Mg Tablet) 5 mg PO Q4HR PRN PRN Reason: Pain 5 to 7 Polyethylene Glycol (Polyethylene Glycol 3350 17 Gm Packet) 17 gm PO DAILY [facility] Last Admin: 09/06/21 08:40 Dose: 17 gm Multivit/Folic Acid/Iron ( Vitamin Tablet) 1 tab PO DAILYWM [facility] Last Admin: 09/06/21 08:41 Dose: 1 tab Sodium Chloride (Sodium Chloride Flush 0.9% 10 Ml Syringe) 10 ml IVP PRN PRN PRN Reason: NEEDED PER PROVIDER ORDERS Sodium Chloride (Sodium Chloride Flush 0.9% 10 Ml Syringe) 10 ml IVP 0100,0 900,1700 [facility] Last Admin: 09/06/21 08:41 Dose: 10 ml Thiamine HCl (Thiamine 100 Mg Tablet) 100 mg PO DAILYWM [facility] Last Admin: 09/06/21 08:41 Dose: 100 mg Objective - Vital Signs/Intake & Output Reviewed Vital Signs: Yes Vital Signs: Vital Signs x48h Temp Pulse Resp BP BP Pulse Ox 09/06/21 08:40 109/60 09/06/21 08:12 37.1 C 76 20 115/77 97 Intake & Output: Intake & Output 09/03/21 09/04/21 09/05/21 09/06/21 23:59 23:59 23:59 23:59 Intake Total 2021.2 2431.2 120 Output Total 320 475 Balance 1701.2 1956.2 120 - Objective General Appearance: positive: No acute distress, Alert Eyes Bilateral: positive: Normal inspection, PERRL ENT: positive: ENT inspection nml, No signs of dehydration Neck: positive: Nml inspection, No JVD, Trachea midline Respiratory: positive: Chest non-tender, No respiratory distress, Breath sounds nml Cardiovascular: positive: No gallop, Irregularly irregular, Systolic murmur. negative: Tachycardia, Diastolic murmur Peripheral Pulses: 2+ Radial (R), 2+ Radial (L), 2+ Dorsalis pedis (R), 2+ Dorsalis pedis (L) Abdomen: positive: Non-tender, Nml bowel sounds, No distention Skin: positive: Color nml, Warm, Dry. negative: Diaphoresis Extremities: positive: Nml appearance, No pedal edema Neurologic/Psychiatric: positive: Motor nml, Sensation nml - Lab Results Fish Bones: 09/05/21 05:40 09/05/21 05:40 Other Labs: Lab Results x24hrs 09/06/21 Range/Units 08:51 Vitamin B12 410 (180-914) pg/mL Folate 19.46 (5.90 - >24.8) ng/mL ABX Reporting Has patient been on IV antibiotics over the past 48 hours?: No Sepsis Event Note (H) - Evaluation Current Stage of Sepsis: Ruled out Assessment/Plan - Problem List (1) Metabolic encephalopathy Impression: Patient seems to back to his baseline mental status today. He is alert and oriented but still has poor short term memory. He was shocked to hear that his has filed for divorce despite her telling him multiple times. His altered mental status is likely due to chronic alcoholism. He scored a 25/30 on his cognitive function exam with OT, mild cognitive impairment. Plan Switch from IV to PO multivitamin and thiamine for possible Wernicke encephalopathy DCR consult today to see if he is eligible for involuntary admission to a facility because he is unable to care for himself and lives alone. (2) EtOH dependence Impression: His tremors, anxiety and shortness of breath have resolved and his mental status seems to have improved. No hallucinations or seizures. Plan Monitor for hemodynamic instability Continue to administer Librium Qualifiers: Substance use status: in withdrawal Complication of substance-induced condition: uncomplicated Qualified Code(s): F10.230 - Alcohol dependence with withdrawal, uncomplicated (3) Alcohol abuse Impression: Chronic issue, 2 failed rehab attempts. Unable to care for self at home and lives alone. (4) Atrial fibrillation Impression: Rate controlled, he presently denies a sensation of palpitations. Continue metoprolol Qualifiers: Atrial fibrillation type: persistent (not longstanding) Qualified Code(s): I48.19 - Other persistent atrial fibrillation; I48.1 - Persistent atrial fibrillation (5) General weakness Impression: Baseline per PCP. Secondary to chronic alcoholism and malnutrition. (6) Fall at home Impression: Fall at home likely due to weakness from chronic alcoholism and malnutrition. Head CT showed no acute intercranial pathology. (7) Anemia Impression: Macrocytic anemia, consistent with alcoholism and malnutrition. B12 and folate normal. Continue to administer multivitamin. (8) History of heart failure Impression: Episode of diastolic heart failure during his last hospital visit 1 week ago. His last echo is from 08/29/20 and shows preserved ejection fraction on the lower end of normal at 50-55%. It also showed enlarged left and right atrium and mitral regurgitation. No left ventricular hypertrophy. His heart failure seems to have resolved at this time, chest x-ray shows no pleural effusions, lung sounds are clear, no peripheral edema and he is not currently short of breath but we will continue to monitor for signs and symptoms of heart failure.
[2021-09-06] MEDS: DOCUSATE SODIUM 250 MG CAPSULE PO SCH (17:42)
[2021-09-06] MEDS: SENNA 8.6 MG TABLET PO SCH (17:43)
[2021-09-07] MEDS: chlordiazePOXIDE 5 MG CAPSULE PO SCH ×2 (00:22→06:32)
[2021-09-07] MEDS: SODIUM CHLORIDE FLUSH 0.9% 10 ML SYRINGE IVP SCH ×2 (00:22→08:35)
--- NOTE | 2021-09-07 07:36 | Discharge Plan ---
Discharge Plan Problem Reviewed?: Yes Disposition: [facility] H[facility]/Unit DC/Xfer Condition: Stable Prescriptions: chlordiazePOXIDE [Librium] 5 mg PO Q8H #21 Pnv No.121/Iron/Folic Acid [ Multivitamin Tablet] 1 each PO DAILY #30 tablet Metoprolol Succinate [Toprol Xl] 25 mg PO DAILY #30 tablet Thiamine [Vitamin B-1] 100 mg PO DAILYWM #30 tablet Diet: Regular Activity Restrictions: No Restrictions Shower Restrictions: No Driving Restrictions: Yes (no driving due to memory loss) Health Concerns: Mr. Parada is an unfortunate 75-year-old white male with a history of chronic alcoholism and chronic alcohol abuse. This is resulted and fragmented memory loss. While his Mini-Mental status exam score is a 25 out of 30, the patient does not remember the events of last weekend, (where he was hospitalized for alcohol withdrawal and palpitations due to A. fib) or the fact that his is filed for divorce a year and a half ago. He will forget that he cannot drink and will start drinking and escalate the behavior where he hangs up intoxicated, destabilizes his atrial fibrillation rate, and needs to be brought to the emergency room because of severe rapid ventricular response, and incipient congestive heart failure. Enough of these episodes have resulted in hospitalization that the patient was presented as a possible grave danger to self. DCR has evaluated the patient and he is now transferred to [facility]. Plan of Treatment: Treatment at this facility until patient and family are able to coordinate safe discharge to home/living alone Care Goals: For his memory to improve enough to live independently without help To successfully stop drinking alcohol for the long-term Assessment: Patient has no recollection of major events over the last few months. As such at this time he is frightened and angry No Smoking: If you smoke, Please STOP! Call for help. Follow-up with: CHINA MONTIEL MD [Primary Care Provider] -
[2021-09-07] MEDS: DOCUSATE SODIUM 250 MG CAPSULE PO SCH (07:54)
[2021-09-07] MEDS: polyethylene glycoL 3350 17 GM PACKET PO SCH (07:54)
[2021-09-07] MEDS: SENNA 8.6 MG TABLET PO SCH (07:54)
--- NOTE | 2021-09-07 07:54 | DISCHARGE SUMMARY ---
"Discharge Summary Admit Date: 09/04/21 Discharge Date: 09/07/21 Discharging Provider: Marian Trejo MD Condition at Discharge: Stable Discharge Disposition: [facility] Hosp/Unit DC/Xfer - DIAGNOSES Discharge Diagnoses with Status of Each Condition: 1. Acute on chronic metabolic encephalopathy 2. Acute alcohol intoxication 3. Alcohol dependence, chronic, with withdrawal, uncomplicated 4. Chronic atrial fibrillation. With RVR. 5. Generalized weakness 6. Fall at home 7. Chronic diastolic heart failure due to chronic atrial fibrillation with RVR 8. Chronic macrocytic anemia 9. Cognitive deficit - HPI History of Present Illness: 75 year old male with a history of alcoholism and atrial fibrillation presents to the ED today via EMS for altered mental status. He reports that he felt weak today and fell but he did not lose consciousness. He also had a sensation of palpitations, similar to when he has had episodes of atrial fibrillation in the past. He called EMS and they found him with three empty fifths of alcohol and a receipt for them from 08/31/21. He reports that he does not remember drinking the past few days. His alcohol level in the ED was 37.9. [facility] records show that he was discharged from [facility] 2 days ago (09/02/2021) following a 2 day admission for atrial fibrillation, shortness of breath and loss of balance. Per his discharge summary, he did not have any seizures and only required 1 dose of Ativan on the first night of his admission per [facility] protocol. He underwent a magnesium infusion for a magnesium of 1.5. He also had an elevated BNP during his admission. He has no recollection of this event. He does not remember what his withdrawals are usually like. Presently, he reports palpations, instability, tremors, and intermittent anxiety and shortness of breath. He denies nausea, vomiting, chest pain or hallucinations. He agrees that he is no longer able to take care of himself. He reports that he has had a hard time getting around the house. He admits to non-compliance with his medications. He reports that he usually has one small meal in the evening followed by a few alcoholic beverages. He reports that he usually has about 3-4 2 oz drinks a day. His has been in [place] since March with their daughter to help care for their new grandchild. He reports that the baby is 6 weeks old but chart notes show that the grandchild should be about 6 months old. Per his PCP, Dr. Chaudhary, him and his are and she is mostly uninvolved with his day to day care. He has had two failed rehab attempts. In the ED he was afebrile, heart rate initially 114 but was brought down to 94. Blood pressure 156/89. Respirations 20, 100% O2 saturation on room air. His CBC showed a macrocytic anemia. AST 71/ALT 67. His UA showed dehydration with elevated ketones and specific gravity >1.030. BNP 117. Labs were otherwise unremarkable. He received thiamine and magnesium sulfate in the ED. (Linda Jean) - Past Medical History Cardiovascular: reports: Hypertension, Atrial fibrillation Respiratory: reports: None Neuro: reports: None Endocrine/Autoimmune: reports: None GI: reports: None : reports: None HEENT: reports: None Psych: reports: None Musculoskeletal: reports: None Derm: reports: None MRSA Hx?: No - CONSULTS | PROCEDURES Consultations: Designated Crisis Responder, Social Work Procedures: 1. Head CT is without acute intracranial process 2. Chest x-ray has no acute cardiopulmonary pathology. 3. Atrial fibrillation was seen on EKG with a heart rate of 130-245. - HOSPITAL COURSE Hospital Course: Mr. Parada is an unfortunate 75-year-old white male with a history of chronic alcoholism and chronic alcohol abuse. This is resulted and fragmented memory loss. While his Mini-Mental status exam score is a 25 out of 30, the patient does not remember the events of last weekend, (where he was hospitalized for alcohol withdrawal and palpitations due to A. fib) or the fact that his is filed for divorce a year and a half ago. He will forget that he cannot drink and will start drinking and escalate the behavior where he hangs up intoxicated, destabilizes his atrial fibrillation rate, and needs to be brought to the emergency room because of severe rapid ventricular response, and incipient congestive heart failure. Enough of these episodes have resulted in hospitalization that the patient was presented as a possible grave danger to self. [facility] has evaluated the patient and he is now transferred to [facility]. While here he was treated with alcohol withdrawal protocol and was on Librium, as needed Ativan. He also received 2 banana bags. He did well with that and on the morning of September 06 was completely alert, oriented to person place but not time. Again, he had no recollection of how he got to the hospital. He has no recollection of last weekend's hospitalization. In discussing his social situation he agreed that it is getting more difficult to take care of himself. Unfortunately with his memory loss he is forgotten that his filed for divorce a year and a half ago and is shocked and tearful with this admission when I reminded him. Heart rate was initially up into 145 range. With resu mption of his metoprolol. Which we suspect he has not been able to take due to his memory loss and acute alcohol intoxication, his heart rate has gradually slowed down and is now controlled. With the previous admission he went into acute diastolic heart failure due to the RVR. With this admission he was able to avoid acute heart failure. On examination temperature is 36.4. Heart rate 80. Blood pressure 120/75. Respiration 18. 96% on room air. 5 foot 9 inches tall, 67 kg. He is a well- nourished well-developed white male who looks his stated age. There is no tremors, diaphoresis, and he is alert, oriented to person and place but not so much to time. Neck is supple. Lungs are clear to auscultation and percussion and he has no increased respiratory effort and speaking to me or in getting up and walking around the room. PMI is normally placed and he is not tachycardic. Abdomen is soft, nontender, hypoactive bowel sounds. Nontender. No masses. Extremities are warm. No diaphoresis. No tremors. No fasciculations. No asterixis. Speech is normal, intact, sequential. The main deficit that is manifested consistently is his memory loss. - ALLERGIES Allergies/Adverse Reactions: Allergies Allergy/AdvReac Type Severity Reaction Status Date / Time amoxicillin Allergy Unknown Verified 09/04/21 13:14 clindamycin Allergy Unknown Verified 09/04/21 13:14 - MEDICATIONS Home Medications: Ambulatory Orders Medication Instructions Recorded Confirmed Metoprolol Succinate [Toprol Xl] 25 mg PO DAILY #30 tablet 09/07/21 Pnv No.121/Iron/Folic Acid 1 each PO DAILY #30 tablet 09/07/21 [ Multivitamin Tablet] Thiamine [Vitamin B-1] 100 mg PO DAILYWM #30 tablet 09/07/21 chlordiazePOXIDE [Librium] 5 mg PO Q8H #21 09/07/21 - LABS Result Diagrams: 09/05/21 05:40 09/05/21 05:40 - SEPSIS Current Stage of Sepsis: Ruled out"
[2021-09-07 08:34] VITALS: BP 105/71
[2021-09-07] MEDS: THIAMINE 100 MG TABLET PO SCH (08:34)
[2021-09-07] MEDS: PRENATAL VITAMIN TABLET PO SCH (08:34)
[2021-09-07] MEDS: METOPROLOL TARTRATE 25 MG TABLET PO SCH (08:34)
== END 2021-09-07 10:20 | DRG 71 ==
LOC: EDUNIT# → ED 13:04 → MS2 16:08 → OBSVTOIN 09-05 10:19
PROVIDERS: ADMIT Specialist; ATTEND Specialist
DX: G93.41 Metabolic encephalopathy (principal); F10.220 Alcohol dependence with intoxication, uncomplicated; F10.230 Alcohol dependence with withdrawal, uncomplicated; Y90.1 Blood alcohol level of 20-39 mg/100 ml; I48.19 Other persistent atrial fibrillation; I50.32 Chronic diastolic (congestive) heart failure; F10.229 Alcohol dependence with intoxication, unspecified; R53.1 Weakness; Z91.81 History of falling; I10 Essential (primary) hypertension; I11.0 Hypertensive heart disease with heart failure; D53.9 Nutritional anemia, unspecified; T50.916A Underdosing of multiple unspecified drugs, medicaments and biological substances, initial encounter; F09 Unspecified mental disorder due to known physiological condition; R41.82 Altered mental status, unspecified; R41.3 Other amnesia; Z20.822 Contact with and (suspected) exposure to COVID-19; T44.7X6A Underdosing of beta-adrenoreceptor antagonists, initial encounter; Z91.128 Patient's intentional underdosing of medication regimen for other reason; E86.0 Dehydration; Z87.891 Personal history of nicotine dependence; F41.9 Anxiety disorder, unspecified
CPT/HCPCS: 36415; 70450; 71045; 80053; 80306; 81003; 82140; 82607; 82746; 83735; 83880; 84443; 85025; 85610; 87631; 93005; 96365; 96366; 96367; 96368; 96375; 97116; 97161; 97165; 97535; 99283; 99285; A9270; G0378; G0480; J2060; J3411; 0202U; 80320; 81001; 87086

== ENCOUNTER 2021-10-30 19:44 | Outpatient (CLI) | payer MEDICARE, OTHER | END 2021-10-30 19:45 | disposition short-term general hospital (02) | LOC: EMS 19:44 | DX: R00.2 Palpitations (principal); R07.89 Other chest pain; I48.91 Unspecified atrial fibrillation; F41.9 Anxiety disorder, unspecified | CPT/HCPCS: A0425; A0427 ==

== ENCOUNTER 2021-11-10 05:31 | Outpatient (CLI) | payer MEDICARE, OTHER | END 2021-11-10 05:32 | disposition critical access hospital (66) | LOC: EMS 05:31 | DX: R00.2 Palpitations (principal); R07.89 Other chest pain; R06.02 Shortness of breath; R53.1 Weakness | CPT/HCPCS: A0425; A0427 ==

== ENCOUNTER 2021-11-10 06:04 | Emergency (ER) | payer MEDICARE, OTHER ==
[2021-11-10] MEDS ORDERED: SODIUM CHLORIDE 0.9% 1,000 ML IV STA (06:19)
[2021-11-10] MEDS ORDERED: METOPROLOL 5 MG/5 ML VIAL IVP STA (06:19)
--- OUTSIDE RECORDS SUMMARY | 2021-11-10 06:20 | EXTERNAL MEDICAL SUMMARY RPT | Continuity of Care Document ---
:1945 Author Organization [facility] Address [address] [place] [address] Phone Care Team Providers Name Role Phone Chaudhary Unavailable Unavailable Allergies No information. Encounters No information. Medications date description facility 20211030 24 HR metoprolol succinate 25 MG Extend ed Release [facility] Tablet 20210831 Chlordiazepoxide Hydrochloride 25 MG Or al Capsule [facility] 20210831 24 HR metoprolol succinate 25 MG Extend ed Release [facility] Tablet 20210831 Trazodone Hydrochloride 50 MG Oral Tabl et [facility] Problems date description facility 20210831 Alcohol dependence with withdrawal, uns pecified [facility] Procedures date description facility 20211030 General Physician [facility] [id number] General Physician [facility] 20210831 Finding [facility] 20210831 Diagnosis [facility] Results No information. Vital Signs date measurement value source 20210831 weight_standard 74.84 lb 20210831 weight_standard 67.5 lb 20210831 weight_metric 33.95 kg 20210831 weight_metric 30.62 kg 20210831 temperature_standard 99.4 F 20210831 temperature_metric 37.44 C 20210831 respiration_rate 18 /min 20210831 height_standard 69 in 20210831 height_metric 175.26 cm 20210831 heart_rate 78 /min 20210831 BP_systolic 124 mm[Hg] 20210831 BP_diastolic 88 mm[Hg] 20210831 BMI 24.3 kg/m2 20210902 temperature_standard 98.2 F 20210902 temperature_metric 36.78 C 20210902 respiration_rate 19 /min 20210902 heart_rate 69 /min 20210902 BP_systolic 95 mm[Hg] 20210902 BP_diastolic 72 mm[Hg] 20211030 weight_standard 72.58 lb 20211030 weight_metric 32.92 kg 20211030 respiration_rate 22 /min 20211030 height_standard 69 in 20211030 height_metric 175.26 cm 20211030 heart_rate 105 /min 20211030 BP_systolic 143 mm[Hg] 20211030 BP_diastolic 90 mm[Hg] 20211030 BMI 23.6 kg/m2
--- NOTE | 2021-11-10 06:21 | ED Physician Documentation ---
PD HPI DYSPNEA - Stated complaint Stated Complaint: HEART PALPITATIONS - Chief complaint Chief Complaint: Cardiac - History obtained from History obtained from: Patient, EMS - History of Present Illness Timing - onset: Last night (about 8 pm last evening. He says he can tell distinctly when he goes into atrial fib. Last episode was July.), Yesterday Timing - onset during: Rest Timing - details: Abrupt onset (last evening), Still present, Waxing and waning Inciting event(s): No: Out of meds (he states he only occasionally takes Rx metoprolol. Rather regular alcohol use, and states last drink was 3 days ago. Denies nausea, shakiness.) Worsened by: Exertion (feels dyspnea and heart rate faster with walking around. No chest pain.) Associated symptoms: Palpitations. No: Fever, Cough, Wheezing, Bilateral edema Similar symptoms before: Diagnosis (he reports episodic atrial fib, but prior records suggest either episodic or possibly chronic with fast RVR at times. Has had the fast RVR when here with alcohol withdrawal 2 months ago.) Recently seen: Admitted (September for alcohol withdrawal, atrial fib, weakness, dehydration, and confusion.) Review of Systems Constitutional: reports: Fatigue. denies: Fever, Chills Nose: denies: Rhinorrhea / runny nose, Congestion Throat: denies: Sore throat Respiratory: reports: Dyspnea. denies: Cough GI: denies: Abdominal Pain, Nausea, Vomiting, Diarrhea, Bloody / black stool : denies: Dysuria Neurologic: reports: Generalized weakness. denies: Near syncope, Headache PD PAST MEDICAL HISTORY - Past Medical History Cardiovascular: Hypertension, Atrial fibrillation Respiratory: None Neuro: None Endocrine/Autoimmune: None GI: None : None HEENT: None Psych: None Musculoskeletal: None Derm: None - Past Surgical History Past Surgical History: No - Present Medications Home Medications: Ambulatory Orders Medication Instructions Recorded Confirmed Metoprolol Succinate [Toprol Xl] 25 mg PO DAILY #30 tablet 09/07/21 Pnv No.121/Iron/Folic Acid 1 each PO DAILY #30 tablet 09/07/21 [ Multivitamin Tablet] Thiamine [Vitamin B-1] 100 mg PO DAILYWM #30 tablet 09/07/21 chlordiazePOXIDE [Librium] 5 mg PO Q8H #21 09/07/21 Magnesium Oxide [Mag Ox] 400 mg PO DAILY 30 Days #30 tablet 11/10/21 Metoprolol Succinate [Toprol Xl] 25 mg PO DAILY #30 tablet 11/10/21 Rivaroxaban [Xarelto] 20 mg PO DAILY 30 Days #30 tablet 11/10/21 - Allergies Allergies/Adverse Reactions: Allergies Allergy/AdvReac Type Severity Reaction Status Date / Time amoxicillin Allergy Unknown Verified 11/10/21 06:17 clindamycin Allergy Unknown Verified 11/10/21 06:17 - Living Situation Living Situation: reports: Alone Living Arrangement: reports: At home - Social History Does the pt smoke?: No Smoking Status: Former smoker Does the pt drink ETOH?: Yes ETOH Use: Other (he states last drink was 3 days ago. ) Does the pt have substance abuse?: No - Immunizations Immunizations are current?: No - POLST Patient has POLST: No POLST Status: Full Code PD ED PE NORMAL - Vitals Vital signs reviewed: Yes - General General: Alert and oriented X 3, Well developed/nourished - HEENT HEENT: Pharynx benign. No: Moist mucous membranes - Neck Neck: Supple, no meningeal sign, No adenopathy - Cardiac Cardiac: No murmur. No: RRR (irregular and mild tachycardic at 110-120.) - Respiratory Respiratory: Clear bilaterally - Abdomen Abdomen: Normal bowel sounds, Soft, Non tender, Non distended - Back Back: No spinal TTP - Derm Derm: Normal color, Warm and dry, No rash - Extremities Extremities: No tenderness to palpate, No edema, No calf tenderness / cord - Neuro Neuro: Alert and oriented X 3, No motor deficit, Normal speech Results - Vitals Vitals: Vital Signs - 24 hr 11/10/21 11/10/21 11/10/21 05:58 06:25 06:30 Temperature 36.3 C L Heart Rate 119 H 114 H 89 Respiratory 20 18 22 Rate Blood Pressure 144/95 H 140/105 H 141/102 H O2 Saturation 97 97 97 11/10/21 11/10/21 06:32 07:21 Temperature Heart Rate 105 H 85 Respiratory 20 20 Rate Blood Pressure 141/106 H 135/95 H O2 Saturation 98 96 Oxygen O2 Source Room air - EKG (time done) 06:12 Rate: Rate (enter#) (114) Rhythm: Atrial fibrillation [place]: Normal QRS: Normal Ischemia: Normal ST segments. No: ST elevation c/w ischemia, ST depression, T wave inversion - Labs Labs: Laboratory Tests 11/10/21 11/10/21 11/10/21 06:21 06:21 06:21 WBC 6.1 RBC 3.73 L Hgb 12.3 L Hct 36.6 L MCV 98.1 H MCH 33.0 H MCHC 33.6 RDW 13.9 Plt Count TNP MPV TNP Neut # (Auto) 4.7 Lymph # (Auto) 0.7 L [place] # (Auto) 0.6 Eos # (Auto) 0.0 Baso # (Auto) 0.1 Absolute Nucleated RBC 0.00 Nucleated RBC % 0.0 Manual Slide Review Indicated Platelet Estimate NORMAL (130-450,000) Platelet Morphology PLATELET CLUMPING Sodium 140 Potassium 4.5 Chloride 105 Carbon Dioxide 19 L Anion Gap 16.0 H BUN 12 Creatinine 1.2 Estimated GFR (MDRD) 59 L Glucose 107 H Calcium 9.0 Magnesium 1.6 L Total Bilirubin 1.3 H AST 39 ALT 20 Alkaline Phosphatase 59 Troponin I High Sens 5.3 B-Natriuretic Peptide Total Protein 6.6 L Albumin 4.0 Globulin 2.6 Albumin/Globulin Ratio 1.5 Lipase 33 Ethyl Alcohol 11/10/21 11/10/21 06:21 06:46 WBC RBC Hgb Hct MCV MCH MCHC RDW Plt Count MPV Neut # (Auto) Lymph # (Auto) [place] # (Auto) Eos # (Auto) Baso # (Auto) Absolute Nucleated RBC Nucleated RBC % Manual Slide Review Platelet Estimate Platelet Morphology Sodium Potassium Chloride Carbon Dioxide Anion Gap BUN Creatinine Estimated GFR (MDRD) Glucose Calcium Magnesium Total Bilirubin AST ALT Alkaline Phosphatase Troponin I High Sens B-Natriuretic Peptide 263 H Total Protein Albumin Globulin Albumin/Globulin Ratio Lipase Ethyl Alcohol < 5.0 - Rads (name of study) chest xray Radiology: Prelim report reviewed (no inifltrates/no acute process except platelike atelectasis in fissures both sides. ), See rad report PD MEDICAL DECISION MAKING - ED course Complexity details: reviewed old records (prior altered mentation related to withdrawal and fib. ER visit Aug 2021 for atrial fib and had slowing of rate, but discharged still in fib. ), d/w patient ED course: Unclear whether chronic A. fib with now fast rate versus episodic. Goal will be rate control and then emphasis on regular medications of beta-connie and I would suggest anticoagulated. We will can give a magnesium supplement as well. His heart rate is improved with a dose of IV medication. Still getting a magnesium rider. We will watch a little bit and make sure the heart rate stays controlled. We will supplement with the oral dose. Departure - Departure Clinical Impression: Atrial fibrillation, Hypomagnesemia Condition: Stable Follow-Up: CHINA MONTIEL MD [Primary Care Provider] - Prescriptions: Magnesium Oxide [Mag Ox] 400 mg PO DAILY 30 Days #30 tablet Metoprolol Succinate [Toprol Xl] 25 mg PO DAILY #30 tablet Rivaroxaban [Xarelto] 20 mg PO DAILY 30 Days #30 tablet
[2021-11-10] MEDS ORDERED: MAGNESIUM SULFATE 2 GRAM 2 GM/50 ML BAG IV ONE ×2 (06:28→14:32)
[2021-11-10] MEDS ORDERED: THIAMINE 100 MG TABLET PO STA (06:28)
[2021-11-10 06:31] LABS: BASOPHILS # (AUTO) 0.1 10^3/uL (0.0-0.1); BASOPHILS % (AUTO) 1.2 %; EOSINOPHILS % (AUTO) 0.3 %; HCT - HEMATOCRIT 36.6 % (42.0-52.0); HGB - HEMOGLOBIN 12.3 g/dL (14.0-18.0); LYMPHOCYTES # (AUTO) 0.7 10^3/uL (1.5-3.5); LYMPHOCYTES % (AUTO) 11.7 %; MEAN CORPUSCULAR HGB CONC 33.6 g/dL (32.0-36.0); MEAN CORPUSCULAR VOLUME 98.1 fL (80.0-94.0); MONOCYTES # (AUTO) 0.6 10^3/uL (0.0-1.0); MONOCYTES % (AUTO) 9.7 %; NEUTROPHILS # (AUTO) 4.7 10^3/uL (1.5-6.6); NEUTROPHILS % (AUTO) 76.6 %; RED BLOOD COUNT 3.73 10^6/uL (4.70-6.10); RED CELL DISTRIBUTION WIDTH 13.9 % (12.0-15.0); WHITE BLOOD COUNT 6.1 x10^3/uL (4.8-10.8)
[2021-11-10 06:41] LABS: ALBUMIN/GLOBULIN RATIO 1.5 (1.0-2.2); BILIRUBIN,TOTAL 1.3 mg/dL (0.2-1.0); CREATININE 1.2 mg/dL (0.6-1.2); MAGNESIUM 1.6 mg/dL (1.7-2.8); POTASSIUM 4.5 mmol/L (3.5-5.0); TOTAL PROTEIN 6.6 g/dL (6.7-8.2)
[2021-11-10 06:49] LABS: SLIDE REVIEW? Indicated
[2021-11-10 06:50] LABS: PLATELET ESTIMATE, MANUAL NORMAL (130-450,000) (NORMAL); PLATELET MORPHOLOGY PLATELET CLUMPING (NORMAL)
[2021-11-10] MEDS ORDERED: METOPROLOL SUCCINATE 25 MG TABLET PO STA (07:41)
[2021-11-10] MEDS ORDERED: LORazepam 2 MG/ML VIAL IVP STA (08:01)
--- NOTE | 2021-11-10 08:10 | XRAY Report ---
PROCEDURE: Chest 1 View X-Ray INDICATIONS: Chest Pain TECHNIQUE: One view of the chest was acquired. COMPARISON: Chest x-ray one view, 09/04/2021 FINDINGS: Surgical changes and devices: None. Lungs and pleura: Bibasilar discoid atelectasis. No pleural effusions or pneumothorax. Mediastinum: Mediastinal contours appear normal. Heart size is normal. Bones and chest wall: No suspicious bony lesions. Overlying soft tissues appear unremarkable. IMPRESSION: 1.Basal atelectasis. No significant discrepancy with the preliminary interpretation. Reviewed by: Mario Liz MD on 11/10/2021 7:09 AM MARCELINA Approved by: Mario Liz MD on 11/10/2021 7:09 AM WILEO Station ID: [id number]
--- NOTE | 2021-11-10 09:37 | ED Physician Documentation ---
ED Addendum - Addendum Addendum: 11/10/21 09:34 75-year-old alcoholic male with noncompliance and a history of atrial f ibrillation with rapid ventricular response presents to the emergency department this morning with Mook landry with RVR and was treated by Dr. Jean with metoprolol with slowing of his heart rate. He was noted to have a low magnesium and a infusion of magnesium was administered as well as thiamine orally. The patient appears to be in alcohol withdrawal and states that it has been 3 days since he has had a drink. He has had issue with alcohol withdrawal in rapid A. fib previously he has been admitted to the hospital for alcohol withdrawal. At shift change I assumed care of the patient with the plan that once his magnesium was infused he would be discharged home with controlled atrial fibrillation and a prescription for magnesium, Xarelto and metoprolol. When I went to evaluate the patient I found his diastolic blood pressure to be quite elevated and the patient appears to be in alcohol withdrawal. I administered a milligram of Ativan intravenously. Despite this the patient went on to have a brief run of ventricular tachycardia for which he felt unwell for temporary period of time. I consulted the on-call yard worker for Dr. Beth Dial a Dr. Olvera and she recommended the liberal use of metoprolol for the treatment of this patient's episodic ventricular tachycardia. She also recommended treatment for alcohol withdrawal as this is likely due to the driving force. Contacted the day hospitalist for admission at 0937 Dr. Naylor refused to admit the patient to the hospital for observation. He did come down to the emergency department and evaluate the patient and recommended outpatient treatment with Librium and metoprolol. The patient was observed in the ED for another 7 hours with stable rate and no further episodes of V-tach. He did not require further ativan. A second trop was negative as well. He was eventually discharged to home with scripts for xaralto, magnesium, metoprolol and librium. See Dr. Naylor's note for details. 11/10/21 09:37 11/10/21 17:23 11/10/21 17:31
[2021-11-10 16:07] VITALS: BP 111/86
== END 2021-11-10 16:09 | disposition home or self-care (01) ==
LOC: EDUNIT# → ED 06:04
DX: E83.42 Hypomagnesemia (principal); I48.20 Chronic atrial fibrillation, unspecified; Z79.01 Long term (current) use of anticoagulants; Z87.891 Personal history of nicotine dependence; I47.2 Ventricular tachycardia
CPT/HCPCS: 36415; 71045; 80053; 83690; 83735; 83880; 84484; 85025; 93005; 96361; 96365; 96366; 96375; 99284; A9270; G0480; J2060; 80320

== ENCOUNTER 2021-11-19 21:27 | Outpatient (CLI) | payer MEDICARE, OTHER | END 2021-11-19 21:28 | disposition short-term general hospital (02) | LOC: EMS 21:27 | DX: R07.89 Other chest pain (principal); R06.02 Shortness of breath | CPT/HCPCS: A0425; A0427 ==

== ENCOUNTER 2021-12-13 23:53 | Outpatient (CLI) | payer MEDICARE, OTHER | END 2021-12-13 23:59 | disposition short-term general hospital (02) | LOC: EMS 23:53 | DX: R07.9 Chest pain, unspecified (principal); R00.2 Palpitations; R00.0 Tachycardia, unspecified; R06.02 Shortness of breath | CPT/HCPCS: A0425; A0427 ==

== ENCOUNTER 2022-06-25 04:57 | Outpatient (CLI) | payer MEDICARE, OTHER | END 2022-06-25 04:58 | disposition critical access hospital (66) | LOC: EMS 04:57 | DX: I48.91 Unspecified atrial fibrillation (principal); R07.89 Other chest pain | CPT/HCPCS: A0425; A0427 ==

== ENCOUNTER 2022-06-25 05:38 | Emergency (ER) | payer MEDICARE, OTHER ==
[2022-06-25] MEDS ORDERED: METOPROLOL 5 MG/5 ML VIAL IVP STA ×2 (05:51→06:18)
--- NOTE | 2022-06-25 05:54 | ED Physician Documentation ---
History of Present Illness - Stated complaint Stated Complaint: RAPID HR/SOA - Chief complaint Chief Complaint: Cardiac - History obtained from History obtained from: Patient, EMS - Additonal information Additional information: 76yM with pmh paroxysmal afib, not on meds, p/w palpitations since 2200 last night. also with some mild dyspnea. otherwise asymptomatic. Review of Systems Ten Systems: 10 systems reviewed and negative Constitutional: denies: Fever, Chills Cardiac: reports: Palpitations. denies: Chest pain / pressure Respiratory: reports: Dyspnea. denies: Cough GI: denies: Nausea PD PAST MEDICAL HISTORY - Past Medical History Past Medical History: Yes Cardiovascular: Hypertension, Atrial fibrillation Respiratory: None Neuro: None Endocrine/Autoimmune: None GI: None : None HEENT: None Psych: None Musculoskeletal: None Derm: None - Past Surgical History Past Surgical History: No - Present Medications Home Medications: Ambulatory Orders Medication Instructions Recorded Confirmed Metoprolol Succinate [Toprol Xl] 25 mg PO DAILY #30 tablet 09/07/21 Pnv No.121/Iron/Folic Acid 1 each PO DAILY #30 tablet 09/07/21 [ Multivitamin Tablet] Thiamine [Vitamin B-1] 100 mg PO DAILYWM #30 tablet 09/07/21 chlordiazePOXIDE [Librium] 5 mg PO Q8H #21 09/07/21 Magnesium Oxide [Mag Ox] 400 mg PO DAILY 30 Days #30 tablet 11/10/21 Metoprolol Succinate [Toprol Xl] 25 mg PO DAILY #30 tablet 11/10/21 Rivaroxaban [Xarelto] 20 mg PO DAILY 30 Days #30 tablet 11/10/21 chlordiazePOXIDE [Librium] 25 mg PO BID PRN #8 cap 11/10/21 Metoprolol Succinate [Toprol Xl] 25 mg PO DAILY #30 tablet 01/08/22 chlordiazePOXIDE [Librium] 25 - 50 mg PO Q6H PRN #15 cap 01/08/22 - Allergies Allergies/Adverse Reactions: Allergies Allergy/AdvReac Type Severity Reaction Status Date / Time amoxicillin Allergy Unknown Verified 06/25/22 05:48 clindamycin Allergy Unknown Verified 06/25/22 05:48 Penicillins Allergy Unknown Verified 06/25/22 05:48 - Social History Does the pt smoke?: No Smoking Status: Never smoker Does the pt drink ETOH?: Yes Does the pt have substance abuse?: No - Immunizations Immunizations are current?: No - POLST Patient has POLST: No POLST Status: Full Code PD ED PE NORMAL - Vitals Vital signs reviewed: Yes - General General: Alert and oriented X 3, No acute distress, Well developed/nourished - HEENT HEENT: Atraumatic, PERRL, EOMI - Neck Neck: Supple, no meningeal sign - Cardiac Cardiac: Other (tachycardic rate, irregular rhythm) - Respiratory Respiratory: No respiratory distress, Clear bilaterally - Abdomen Abdomen: Non tender, Non distended - Back Back: No CVA TTP - Derm Derm: Normal color, Warm and dry - Extremities Extremities: No deformity - Neuro Neuro: No motor deficit, No sensory deficit - Psych Psych: Normal mood, Normal affect Results - Vitals Vitals: Vital Signs - 24 hr 06/25/22 06/25/22 05:45 05:49 Temperature 37.3 C Heart Rate 106 H 127 H Respiratory 16 17 Rate Blood Pressure 145/103 H O2 Saturation 99 Oxygen O2 Source Room air - EKG (time done) 0545 Rate: Rate (enter#) (105) Rhythm: Atrial fibrillation [place]: Normal QRS: Normal Ischemia: Normal ST segments PD Medical Decision Making - ED course ED course: 76yM with pmh paroxysmal afib p/w palpitations, found to be in afib tonight. will plan to rate control, eval labs. patient will require cardiology outpatient evaluation and echocardiogram.
[2022-06-25 06:21] LABS: BASOPHILS # (AUTO) 0.1 10^3/uL (0.0-0.1); BASOPHILS % (AUTO) 0.9 %; EOSINOPHILS % (AUTO) 0.3 %; HGB - HEMOGLOBIN 10.9 g/dL (14.0-18.0); LYMPHOCYTES # (AUTO) 0.8 10^3/uL (1.5-3.5); LYMPHOCYTES % (AUTO) 10.9 %; MEAN CORPUSCULAR HEMOGLOBIN 34.7 pg (27.0-31.0); MEAN CORPUSCULAR VOLUME 105.1 fL (80.0-94.0); MEAN PLATELET VOLUME 10.2 fL (7.4-11.4); MONOCYTES # (AUTO) 0.8 10^3/uL (0.0-1.0); MONOCYTES % (AUTO) 10.7 %; NEUTROPHILS # (AUTO) 5.9 10^3/uL (1.5-6.6); NEUTROPHILS % (AUTO) 76.8 %; PLT - PLATELET COUNT 141 10^3/uL (130-450); RED BLOOD COUNT 3.14 10^6/uL (4.70-6.10); RED CELL DISTRIBUTION WIDTH 13.3 % (12.0-15.0); WHITE BLOOD COUNT 7.6 x10^3/uL (4.8-10.8)
[2022-06-25 06:28] LABS: ALBUMIN 3.8 g/dL (3.2-5.5); ALBUMIN/GLOBULIN RATIO 1.4 (1.0-2.2); BILIRUBIN,TOTAL 1.3 mg/dL (0.2-1.0); CALCIUM 8.5 mg/dL (8.5-10.3); CREATININE 1.1 mg/dL (0.6-1.2); POTASSIUM 5.2 mmol/L (3.5-5.0); TOTAL PROTEIN 6.6 g/dL (6.7-8.2)
[2022-06-25 07:13] VITALS: BP 127/87
--- NOTE | 2022-06-25 08:09 | XRAY Report ---
PROCEDURE: Chest 1 View X-Ray INDICATIONS: Chest Pain TECHNIQUE: One view of the chest was acquired. COMPARISON: X-ray chest, one view, 01/08/2022. . FINDINGS: Surgical changes and devices: None. Lungs and pleura: Bibasilar opacities may be infiltrates or atelectasis. Possible small left pleural effusion. No pneumothorax. Mediastinum: Mediastinal contours appear normal. Heart size is borderline enlarged. Bones and chest wall: No suspicious bony lesions. Overlying soft tissues appear unremarkable. IMPRESSION: 1. Bibasilar opacities may be pneumonia or atelectasis. 2. Borderline cardiomegaly. No significant discrepancy with the preliminary interpretation. Reviewed by: Mario Liz MD on 06/25/2022 8:07 AM PST Approved by: Mario Liz MD on 06/25/2022 8:07 AM PST Station ID: [id number]
== END 2022-06-25 10:31 | disposition home or self-care (01) ==
LOC: EDUNIT# → ED 05:38
DX: I48.91 Unspecified atrial fibrillation (principal)
CPT/HCPCS: 36415; 80053; 83690; 84484; 85025; 93005; 96374; 99283

== ENCOUNTER 2022-06-25 10:40 | Outpatient (CLI) | payer MEDICARE, OTHER | END 2022-06-25 10:41 | disposition home or self-care (01) | LOC: EMS 10:40 | DX: R07.9 Chest pain, unspecified (principal) | CPT/HCPCS: A0425; A0428 ==

== ENCOUNTER 2022-06-30 13:10 | Outpatient (CLI) | payer MEDICARE, OTHER | END 2022-06-30 13:11 | disposition short-term general hospital (02) | LOC: EMS 13:10 | DX: I48.91 Unspecified atrial fibrillation (principal); R07.89 Other chest pain | CPT/HCPCS: A0425; A0427 ==

== ENCOUNTER 2022-08-20 23:45 | Outpatient (CLI) | payer MEDICARE, OTHER | END 2022-08-20 23:46 | disposition short-term general hospital (02) | LOC: EMS 23:45 | DX: S01.312A Laceration without foreign body of left ear, initial encounter (principal); R53.1 Weakness; R06.02 Shortness of breath; R26.81 Unsteadiness on feet; W10.8XXA Fall (on) (from) other stairs and steps, initial encounter; Y93.01 Activity, walking, marching and hiking; Y92.008 Other place in unspecified non-institutional (private) residence as the place of occurrence of the external cause | CPT/HCPCS: A0425; A0429 ==

== ENCOUNTER 2022-09-08 13:31 | Outpatient (CLI) | payer MEDICARE, OTHER | END 2022-09-08 13:32 | disposition EMS.NT | LOC: EMS 13:31 | DX: Z03.89 Encounter for observation for other suspected diseases and conditions ruled out (principal) ==

== ENCOUNTER 2022-10-02 12:19 | Outpatient (CLI) | payer MEDICARE, OTHER | END 2022-10-02 23:59 | disposition critical access hospital (66) | LOC: EMS 12:19 | DX: R53.1 Weakness (principal); R00.2 Palpitations | CPT/HCPCS: A0425; A0427 ==

== ENCOUNTER 2022-10-02 12:57 | Emergency (ER) | payer MEDICARE, OTHER ==
[2022-10-02] MEDS ORDERED: METOPROLOL 5 MG/5 ML VIAL IVP STA (13:10)
--- NOTE | 2022-10-02 13:12 | ED Physician Documentation ---
History of Present Illness - Stated complaint Stated Complaint: AFIB/RVR - Chief complaint Chief Complaint: Cardiac - History obtained from History obtained from: Patient - Additonal information Additional information: 76-year-old male with a past medical history of paroxysmal atrial fibrillation as well as alcohol use disorder presents dating he has been in A-fib since yesterday and has felt some weakness he thought secondary to the A-fib and this is resulted in several falls at home. Patient states that he does occasionally go into A-fib but typically only last for 10 to 15 minutes but he felt like he went into A-fib yesterday, has been feeling his heart fluttering and palpating and has felt some weakness particularly with exercise since then. When he gets up, he feels weakness in his legs and he falls to the ground. He states he has not sustained any injuries in the falls, has not hit his head or lost consciousness. He has no chest pain, no difficulty breathing, no abdominal pain, no nausea vomiting diarrhea, no urinary symptoms. He states he last drank alcohol 2 days ago, and he denies any withdrawal symptoms stating that he "whenever I quit I never get withdrawal symptoms." He typically drinks bourbon 4days a week. His has been out of town taking care of of their grandchildren in [place] for the last month or so though apparently is coming home today. Patient states he has NOT been Compliant with his medication recently nd is not currently on Any anticoagulation nor is he taking his metoprolol or other prescribed medications. He states that he just didn't feel like taking them. Review of Systems Constitutional: reports: Reviewed and negative Eyes: reports: Reviewed and negative Ears: reports: Reviewed and negative Nose: reports: Reviewed and negative Throat: reports: Reviewed and negative Cardiac: reports: Palpitations. denies: Chest pain / pressure, Pedal edema, Calf pain Respiratory: reports: Dyspnea. denies: Cough, Hemoptysis, Wheezing GI: reports: Reviewed and negative : reports: Reviewed and negative Skin: reports: Reviewed and negative Musculoskeletal: reports: Reviewed and negative Neurologic: reports: Generalized weakness. denies: Focal weakness, Numbness, Difficulty speaking, Near syncope, Syncope, Seizure, Confused, Altered mental status, Unresponsive, Headache, Head injury, LOC Psychiatric: reports: Reviewed and negative PD PAST MEDICAL HISTORY - Past Medical History Past Medical History: Yes Cardiovascular: Hypertension, Atrial fibrillation Respiratory: None Neuro: None Endocrine/Autoimmune: None GI: None : None HEENT: None Psych: None Musculoskeletal: None Derm: None - Past Surgical History Past Surgical History: No - Present Medications Home Medications: Ambulatory Orders Medication Instructions Recorded Confirmed Metoprolol Tartrate [Lopressor] 25 mg PO BID #60 tablet 06/25/22 Rivaroxaban [Xarelto] 20 mg PO QDAC #30 tablet 06/25/22 - Allergies Allergies/Adverse Reactions: Allergies Allergy/AdvReac Type Severity Reaction Status Date / Time amoxicillin Allergy Unknown Verified 10/02/22 13:05 clindamycin Allergy Unknown Verified 10/02/22 13:05 Penicillins Allergy Unknown Verified 10/02/22 13:05 - Social History Does the pt smoke?: No Smoking Status: Never smoker Does the pt drink ETOH?: Yes Does the pt have substance abuse?: No - Immunizations Immunizations are current?: No - POLST Patient has POLST: No POLST Status: Full Code PD ED PE NORMAL - Vitals Vital signs reviewed: Yes - General General: Alert and oriented X 3, No acute distress, Well developed/nourished - HEENT HEENT: Atraumatic, PERRL, EOMI, Moist mucous membranes, Pharynx benign - Neck Neck: Supple, no meningeal sign, No JVD - Cardiac Cardiac: No murmur, Strong equal pulses, Other (irregularly irreg) - Respiratory Respiratory: No respiratory distress, Clear bilaterally - Abdomen Abdomen: Normal bowel sounds, Soft, Non tender, Non distended - Male Male : Other (voiding well per urinal no acute findings) - Back Back: No CVA TTP, No spinal TTP - Derm Derm: Normal color, Warm and dry, No rash, Other (older bruising right chest wall) - Extremities Extremities: No deformity, No tenderness to palpate, Normal ROM s pain, No edema, No calf tenderness / cord - Neuro Neuro: Alert and oriented X 3, steel chipper 2-12 intact, No motor deficit, No sensory deficit, Normal speech Eye Opening: Spontaneous Motor: Obeys Commands Verbal: Oriented GCS Score: 15 - Psych Psych: Normal mood, Normal affect Results - Vitals Vitals: Vital Signs - 24 hr 10/02/22 10/02/22 10/02/22 13:05 13:21 15:14 Temperature 37.2 C Heart Rate 119 H 101 H 101 H Respiratory 22 24 24 Rate Blood Pressure 127/86 H 136/101 H 139/96 H O2 Saturation 97 97 100 Oxygen O2 Source Room air - EKG (time done) No standard instances EKG releavant findings:: EKG personally interpreted by author of this note. Relevant findings are: Rate: Rate (enter#) (107) Rhythm: Atrial fibrillation QRS: Normal Computer interpretation: Agree with computer - Labs Labs: Laboratory Tests 10/02/22 10/02/22 10/02/22 13:19 13:19 13:19 WBC 5.2 RBC 2.85 L Hgb 10.1 L Hct 30.0 L MCV 105.3 H MCH 35.4 H MCHC 33.7 RDW 12.4 Plt Count 112 L MPV 10.6 Neut # (Auto) 4.1 Lymph # (Auto) 0.5 L [place] # (Auto) 0.5 Eos # (Auto) 0.0 Baso # (Auto) 0.1 Absolute Nucleated RBC 0.00 Nucleated RBC % 0.0 PT INR Sodium 138 Potassium 5.1 H Chloride 106 Carbon Dioxide 22 Anion Gap 10.0 BUN 16 Creatinine 1.0 Estimated GFR (MDRD) 73 L Glucose 93 Calcium 8.5 Total Bilirubin 1.4 H AST 40 ALT 24 Alkaline Phosphatase 69 Troponin I High Sens 7.3 Total Protein 6.2 L Albumin 3.7 Globulin 2.5 Albumin/Globulin Ratio 1.5 Lipase 41 Urine Color Urine Clarity Urine pH Ur Specific [place] Urine Protein Urine Glucose (UA) Urine Ketones Urine Occult Blood Urine Nitrite Urine Bilirubin Urine Urobilinogen Ur Leukocyte Esterase Urine RBC Urine WBC Ur Squamous Epith Cells Urine Bacteria Urine Culture Comments Ethyl Alcohol < 5.0 10/02/22 10/02/22 13:19 13:45 WBC RBC Hgb Hct MCV MCH MCHC RDW Plt Count MPV Neut # (Auto) Lymph # (Auto) [place] # (Auto) Eos # (Auto) Baso # (Auto) Absolute Nucleated RBC Nucleated RBC % PT 11.6 INR 1.0 Sodium Potassium Chloride Carbon Dioxide Anion Gap BUN Creatinine Estimated GFR (MDRD) Glucose Calcium Total Bilirubin AST ALT Alkaline Phosphatase Troponin I High Sens Total Protein Albumin Globulin Albumin/Globulin Ratio Lipase Urine Color DARK YELLOW Urine Clarity CLEAR Urine pH 6.0 Ur Specific [place] 1.020 Urine Protein NEGATIVE Urine Glucose (UA) NEGATIVE Urine Ketones NEGATIVE Urine Occult Blood NEGATIVE Urine Nitrite NEGATIVE Urine Bilirubin NEGATIVE Urine Urobilinogen 0.2 (NORMAL) Ur Leukocyte Esterase NEGATIVE Urine RBC 0-5 Urine WBC 0-3 Ur Squamous Epith Cells RARE Squamous Urine Bacteria Rare Urine Culture Comments NOT INDICATED Ethyl Alcohol PD Medical Decision Making - ED course Complexity details: reviewed old records, reviewed results, re-evaluated patient, considered differential, d/w patient ED course: This is a 76-year-old male with a past medical history of atrial fibrillation. It is listed as paroxysmal although it. The patient is frequently in atrial fibrillation when he is here. In any case, he presents feeling as though he went into A-fib yesterday. He has not been compliant with his medication as described in HPI. Here, he Is nontoxic-appearing, somewhat disheveled but pleasant and cooperative. His heart rate and irregular in the low 100s but blood pressure stable, oxygenating well on room air. We obtained an x-ray which shows some atelectasis but no acute findings. EKG reveals atrial fibrillation in the low 100s. No acute ST changes. We obtained labs including a troponin which were stable, his potassium was slightly elevated at 5.1. He was given some IV fluids and I also given 5 of IV metoprolol with improvement in his heart rate to the 90s. I then resumed his home p.o. metoprolol. Patient was feeling back to baseline tho he remains in atrial fibrillation, he is rate controlled with stable BP and no other sx. He is eager to go back home. He was advised to resume his metoprolol at home. I had a long discussion with the patient about the risk versus benefits of anticoagulation for him. Unfortunately given his ongoing alcohol use and frequent falls, he is a risk for injury that could be complicated by anticoagulation use but he is a stroke risk w/ CHADsVASC2 score of 3 places him at moderate risk for stroke and therefore a candidate for anticoagulation. The patient has a current prescription for doac and was advised to resume with the understanding that he is at risk for injury and to seek care if he has a fall while on anticoagulation. He was strongly urged to follow up with PCP within the next week for re-evaluation and for chronic disease management. He was also encouraged to maintain sobriety. He ambulated safely prior to discharge. Departure - Departure Disposition: 01 Home, Self Care Clinical Impression: General weakness Atrial fibrillation Qualifiers: Atrial fibrillation type: paroxysmal Qualified Code(s): I48.0 - Paroxysmal atrial fibrillation Condition: Good Instructions: Atrial Fibrillation Dc Comments: Please resume Your medication for atrial fibrillation, particularly the metoprolol up which is used to control your heart rate. You have been prescribed a blood thinner in the past called Xarelto. This medication helps reduce the risk of stroke in somebody that has atrial fibrillation. However,You are at higher risk for complications with this medication due to her history of falling and alcohol use. Falling while on this medication can result in bleeding. If you are going to continue to drink alcohol, and thus increase your chance of falling, the risk of taking this medication may be higher than the benefit. You should continue to talk to your PCP about this. You have been advised to see cardiology on outpatient basis In the past and I again would like you to establish care with a lighthouse keeper. Discharge Date/Time: 10/02/22 16:13
[2022-10-02 13:25] LABS: BASOPHILS # (AUTO) 0.1 10^3/uL (0.0-0.1); BASOPHILS % (AUTO) 1.2 %; EOSINOPHILS % (AUTO) 0.6 %; HGB - HEMOGLOBIN 10.1 g/dL (14.0-18.0); LYMPHOCYTES # (AUTO) 0.5 10^3/uL (1.5-3.5); LYMPHOCYTES % (AUTO) 10.4 %; MEAN CORPUSCULAR HEMOGLOBIN 35.4 pg (27.0-31.0); MEAN CORPUSCULAR HGB CONC 33.7 g/dL (32.0-36.0); MEAN CORPUSCULAR VOLUME 105.3 fL (80.0-94.0); MEAN PLATELET VOLUME 10.6 fL (7.4-11.4); MONOCYTES # (AUTO) 0.5 10^3/uL (0.0-1.0); MONOCYTES % (AUTO) 8.7 %; NEUTROPHILS # (AUTO) 4.1 10^3/uL (1.5-6.6); NEUTROPHILS % (AUTO) 78.9 %; PLT - PLATELET COUNT 112 10^3/uL (130-450); RED BLOOD COUNT 2.85 10^6/uL (4.70-6.10); RED CELL DISTRIBUTION WIDTH 12.4 % (12.0-15.0); WHITE BLOOD COUNT 5.2 x10^3/uL (4.8-10.8)
--- NOTE | 2022-10-02 13:28 | XRAY Report ---
PROCEDURE: Chest 1 View X-Ray INDICATIONS: chest pain TECHNIQUE: One view of the chest was acquired. COMPARISON: None. FINDINGS: Surgical changes and devices: None. Lungs and pleura: No pleural effusions or pneumothorax. Focal platelike atelectasis, left lung base. Mediastinum: Mediastinal contours appear normal. Heart size is normal. Bones and chest wall: No suspicious bony lesions. Overlying soft tissues appear unremarkable. IMPRESSION: Platelike atelectasis, left lung base. Otherwise unremarkable. Reviewed by: Rhett Holliday MD on 10/02/2022 1:27 PM PDT Approved by: Rhett Holliday MD on 10/02/2022 1:27 PM PDT Station ID: [id number]
[2022-10-02 13:30] LABS: PT - PROTHROMBIN TIME 11.6 secs (9.9-12.6)
--- OUTSIDE RECORDS SUMMARY | 2022-10-02 13:32 | EXTERNAL MEDICAL SUMMARY RPT | Continuity of Care Document ---
:1945 Author Organization [facility] Address [address] [place] [address] Phone Care Team Providers Name Role Phone Unavailable Unavailable Unavailable Jeannette Chaudhary Unavailable Unavailable Allergies and Intolerances date description facility type (no date) amoxicillin [facility] (unknown) (no date) clindamycin [facility] (unknown) Encounters No information. Functional Status No information. Immunizations No information. 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 [facility] 2022-08-21 00:00 Laceration of ear [facility] 2022-08-21 00:00 Fracture of rib [facility] 2022-08-21 00:00 Fall [facility] Procedures date description facility 2022-08-20 00:00 Computed tomography of head or brain [facility] contrast 2022-08-21 00:00 Computed tomography of head or brain [facility] contrast 2022-08-20 00:00 CT chest without [facility] 2022-08-20 00:00 X-ray of chest, single view [facility] 2022-08-21 00:00 CT abdomen pelvis w con [facility] 2022-08-20 00:00 Computed tomography of cervical spine w [facility] contrast 2022-08-21 00:00 Computed tomography of cervical spine w [facility] contrast Results/Labs test date author facility value unit interpret ation Result panel 1 ([facility]no [facility]) Result panel 2 (unknown) (no date) ([facility] Result panel 3 (unknown) (no date) ([facility] Result panel 4 (unknown) (no date) ([facility] Result panel 5 (unknown) (no date) ([facility] Result panel 6 (unknown) (no date) ([facility] Result panel 7 (unknown) (no date) (unknown[facility] Result panel 8 (unknown) (no date) (unknown[facility] Result panel 9 (unknown) (no date) (unknown[facility] Result panel 10 (unknown) (no date) ([facility] Result panel 11 (unknown) (no date) (unknown[facility] Result panel 12 (unknown) (no date) (unknown[facility] Result panel 13 (unknown) (no date) (unknown[facility] Result panel 14 (unknown) (no date) (unknown[facility] Result panel 15 (unknown) (no date) (unknown[facility] Result panel 16 (unknown) (no date) (unknown[facility] Result panel 17 (unknown) (no date) (unknown[facility] Result panel 18 (unknown) (no date) (unknown[facility] Result panel 19 (unknown) (no date) (unknown[facility] Result panel 20 (unknown) (no date) (unknown[facility] Result panel 21 (unknown) (no date) (unknown[facility] Result panel 22 (unknown) (no date) (unknown[facility] Result panel 23 (unknown) (no date) (unknown[facility] Result panel 24 (unknown) (no date) (unknown[facility] Result panel 25 (unknown) (no date) (unknown[facility] Result panel 26 (unknown) (no date) (unknown[facility] Result panel 27 (unknown) (no date) (unknown[facility] Result panel 28 (unknown) (no date) (unknown[facility] Result panel 29 (unknown) (no date) (unknown[facility] Result panel 30 (unknown) (no date) (unknown[facility] Result panel 31 (unknown) (no date) (unknown[facility] Result panel 32 (unknown) (no date) (unknown[facility] Result panel 33 (unknown) (no date) (unknown[facility] Result panel 34 (unknown) (no date) (unknown[facility] Result panel 35 (unknown) (no date) (unknown[facility] Result panel 36 (unknown) (no date) (unknown[facility] Result panel 37 (unknown) (no date) (unknown[facility] Result panel 38 (unknown) (no date) (unknown[facility] Result panel 39 (unknown) (no date) (unknown[facility] Result panel 40 (unknown) (no date) (unknown[facility] Result panel 41 (unknown) (no date) (unknown[facility] Result panel 42 (unknown) (no date) (unknown[facility] Result panel 43 (unknown) (no date) (unknown[facility] Result panel 44 (unknown) (no date) (unknown[facility] Result panel 45 (unknown) (no date) (unknown[facility] Result panel 46 (unknown) (no date) (unknown[facility] Result panel 47 (unknown) (no date) (unknown[facility] Result panel 48 (unknown) (no date) (unknown[facility] Result panel 49 (unknown) (no date) (unknown[facility] Result panel 50 (unknown) (no date) (unknown[facility] Result panel 51 (unknown) (no date) (unknown[facility] Result panel 52 (unknown) (no date) (unknown[facility] Result panel 53 (unknown) (no date) (unknown[facility] Result panel 54 (unknown) (no date) (unknown[facility] Result panel 55 (unknown) (no date) (unknown[facility]) Result panel 56 (unknown) (no date) (unknown[facility] Result panel 57 (unknown) (no date) (unknown[facility] Result panel 58 (unknown) (no date) (unknown[facility] Result panel 59 (unknown) (no date) (unknown[facility] Result panel 60 (unknown) (no date) (unknown[facility] Result panel 61 (unknown) (no date) (unknown[facility] Result panel 62 (unknown) (no date) (unknown[facility] Result panel 63 (unknown) (no date) (unknown[facility] Result panel 64 (unknown) (no date) (unknown[facility] Result panel 65 (unknown) (no date) (unknown[facility] Result panel 66 (unknown) (no date) (unknown[facility]) Result panel 67 (unknown) (no date) (unknown[facility] Result panel 68 (unknown) (no date) (unknown[facility] Result panel 69 (unknown) (no date) (unknown[facility] Result panel 70 (unknown) (no date) (unknown[facility] Result panel 71 (unknown) (no date) (unknown[facility] Result panel 72 (unknown) (no date) (unknown[facility]) Result panel 73 (unknown) (no date) (unknown[facility] Result panel 74 (unknown) (no date) (unknown[facility]) Result panel 75 (unknown) (no date) (unknown[facility]) Result panel 76 (unknown) (no date) (unknown[facility] Result panel 77 (unknown) (no date) (unknown[facility]) Result panel 78 (unknown) (no date) (unknown[facility] Result panel 79 (unknown) (no date) (unknown[facility]) Result panel 80 (unknown) (no date) (unknown[facility] Result panel 81 (unknown) (no date) (unknown[facility]) Result panel 82 (unknown) (no date) (unknown[facility] Result panel 83 (unknown) (no date) (unknown[facility]) Result panel 84 (unknown) (no date) (unknown[facility] Result panel 85 (unknown) (no date) (unknown[facility] Result panel 86 (unknown) (no date) (unknown[facility] Result panel 87 (unknown) (no date) (unknown[facility] Result panel 88 (unknown) (no date) (unknown[facility] Result panel 89 (unknown) (no date) (unknown[facility] Result panel 90 (unknown) (no date) (unknown[facility] Result panel 91 (unknown) (no date) (unknown[facility] Result panel 92 (unknown) (no date) (unknown[facility]) Result panel 93 (unknown) (no date) (unknown[facility] Result panel 94 (unknown) (no date) (unknown[facility] Result panel 95 (unknown) (no date) (unknown[facility] Result panel 96 (unknown) (no date) (unknown[facility]) Result panel 97 (unknown) (no date) (unknown[facility] Result panel 98 (unknown) (no date) (unknown[facility] Result panel 99 (unknown) (no date) (unknown[facility] Result panel 100 (unknown) (no date) (unknown[facility] Result panel 101 (unknown) (no date) (unknown[facility]) Result panel 102 (unknown) (no date) (unknown[facility] Result panel 103 (unknown) (no date) (unknown[facility] Result panel 104 (unknown) (no date) (unknown[facility] Result panel 105 (unknown) (no date) (unknown[facility] Result panel 106 (unknown) (no date) (unknown[facility]) Result panel 107 (unknown) (no date) (unknown[facility] Result panel 108 (unknown) (no date) (unknown[facility]) Result panel 109 (unknown) (no date) (unknown[facility] Result panel 110 (unknown) (no date) (unknown[facility]) Result panel 111 (unknown) (no date) (unknown[facility]) Result panel 112 (unknown) (no date) (unknown[facility]) Result panel 113 (unknown) (no date) (unknown[facility] Result panel 114 (unknown) (no date) (unknown[facility]) Result panel 115 (unknown) (no date) (unknown[facility] Result panel 116 (unknown) (no date) (unknown[facility]) Result panel 117 (unknown) (no date) (unknown[facility] Result panel 118 (unknown) (no date) (unknown[facility]) Result panel 119 (unknown) (no date) (unknown[facility] Result panel 120 (unknown) (no date) (unknown[facility]) Result panel 121 (unknown) (no date) (unknown[facility]) Result panel 122 (unknown) (no date) (unknown[facility] Result panel 123 (unknown) (no date) (unknown[facility]) Result panel 124 (unknown) (no date) (unknown[facility]) Result panel 125 (unknown) (no date) (unknown[facility]) Result panel 126 (unknown) (no date) (unknown[facility]) Result panel 127 (unknown) (no date) (unknown[facility]) Result panel 128 (unknown) (no date) (unknown[facility]) Result panel 129 (unknown) (no date) (unknown[facility] Result panel 130 (unknown) (no date) (unknown[facility]) Result panel 131 (unknown) (no date) (unknown[facility] Result panel 132 (unknown) (no date) (unknown[facility]) Result panel 133 (unknown) (no date) (unknown[facility] Result panel 134 (unknown) (no date) (unknown[facility] Result panel 135 (unknown) (no date) (unknown[facility]) Result panel 136 (unknown) (no date) (unknown[facility] Result panel 137 (unknown) (no date) (unknown[facility]) Result panel 138 (unknown) (no date) (unknown[facility] Result panel 139 (unknown) (no date) (unknown[facility] Result panel 140 (unknown) (no date) (unknown[facility]) Result panel 141 (unknown) (no date) (unknown[facility] Result panel 142 (unknown) (no date) (unknown[facility]) Result panel 143 (unknown) (no date) (unknown[facility] Result panel 144 (unknown) (no date) (unknown[facility]) Result panel 145 (unknown) (no date) (unknown[facility] Result panel 146 (unknown) (no date) (unknown[facility]) Result panel 147 (unknown) (no date) (unknown[facility]) Result panel 148 (unknown) (no date) (unknown[facility]) Result panel 149 (unknown) (no date) (unknown[facility]) Result panel 150 (unknown) (no date) (unknown[facility]) Result panel 151 (unknown) (no date) (unknown[facility]) Result panel 152 (unknown) (no date) (unknown[facility]) Result panel 153 (unknown) (no date) (unknown[facility]) Result panel 154 (unknown) (no date) (unknown[facility]) Result panel 155 (unknown) (no date) (unknown) [facility] Result panel 156 (unknown) (no date) (unknown) [facility]) Result panel 157 (unknown) (no date) (unknown) [facility]) Result panel 158 (unknown) (no date) (unknown) [facility]) Result panel 159 (unknown) (no date) (unknown) [facility] Result panel 160 (unknown) (no date) (unknown) [facility] Result panel 161 (unknown) (no date) (unknown) [facility]) Result panel 162 (unknown) (no date) (unknown) [facility]) Result panel 163 (unknown) (no date) (unknown) [facility] Result panel 164 (unknown) (no date) (unknown) [facility]) Result panel 165 (unknown) (no date) (unknown) [facility]) Result panel 166 (unknown) (no date) (unknown) [facility]) Result panel 167 (unknown) (no date) (unknown) [facility]) Result panel 168 (unknown) (no date) (unknown) [facility] Result panel 169 (unknown) (no date) (unknown) [facility]) Result panel 170 (unknown) (no date) (unknown) [facility] Result panel 171 (unknown) (no date) (unknown[facility] Result panel 172 (unknown) (no date) (unknown[facility]) Result panel 173 (unknown) (no date) (unknown) [facility] Result panel 174 (unknown) (no date) (unknown) [facility] Result panel 175 (unknown) (no date) (unknown) [facility] Result panel 176 (unknown) (no date) (unknown) [facility] Result panel 177 (unknown) (no date) (unknown) [facility]) Result panel 178 (unknown) (no date) (unknown) [facility]) Result panel 179 (unknown) (no date) (unknown) [facility] Result panel 180 (unknown) (no date) (unknown) [facility] Result panel 181 (unknown) (no date) (unknown) [facility] Result panel 182 (unknown) (no date) (unknown) [facility] Result panel 183 (unknown) (no date) (unknown) [facility] Result panel 184 (unknown) (no date) (unknown[facility] Result panel 185 (unknown) (no date) (unknown[facility] Result panel 186 (unknown) (no date) (unknown[facility] Result panel 187 (unknown) (no date) (unknown[facility] Result panel 188 (unknown) (no date) (unknown[facility] Result panel 189 (unknown) (no date) (unknown) [facility]) Result panel 190 (unknown) (no date) (unknown) [facility] Result panel 191 (unknown) (no date) (unknown) [facility] Result panel 192 (unknown) (no date) (unknown) [facility]) Result panel 193 (unknown) (no date) (unknown) [facility] Result panel 194 (unknown) (no date) (unknown) [facility]) Result panel 195 (unknown) (no date) (unknown) [facility] Result panel 196 (unknown) (no date) (unknown) [facility]) Result panel 197 (unknown) (no date) (unknown) [facility] Result panel 198 (unknown) (no date) (unknown) [facility]) Result panel 199 (unknown) (no date) (unknown) [facility] Result panel 200 (unknown) (no date) (unknown) [facility] Result panel 201 (unknown) (no date) (unknown) [facility] Result panel 202 (unknown) (no date) (unknown) [facility] Result panel 203 (unknown) (no date) (unknown) [facility] Result panel 204 (unknown) (no date) (unknown) [facility]) Result panel 205 (unknown) (no date) (unknown) [facility] Result panel 206 (unknown) (no date) (unknown) [facility] Result panel 207 (unknown) (no date) (unknown) [facility] Result panel 208 (unknown) (no date) (unknown) [facility]) Result panel 209 (unknown) (no date) (unknown) [facility] Result panel 210 (unknown) (no date) (unknown) [facility] Result panel 211 (unknown) (no date) (unknown) [facility] Result panel 212 (unknown) (no date) (unknown) [facility]) Result panel 213 (unknown) (no date) (unknown) [facility] Result panel 214 (unknown) (no date) (unknown) [facility]) Result panel 215 (unknown) (no date) (unknown) [facility] Result panel 216 (unknown) (no date) (unknown) [facility] Result panel 217 (unknown) (no date) (unknown[facility] Result panel 218 (unknown) (no date) (unknown) [facility] Result panel 219 (unknown) (no date) (unknown) [facility]) Result panel 220 (unknown) (no date) (unknown[facility] Result panel 221 (unknown) (no date) (unknown[facility] Result panel 222 (unknown) (no date) (unknown) [facility]) Result panel 223 (unknown) (no date) (unknown) [facility] Result panel 224 (unknown) (no date) (unknown) [facility]) Result panel 225 (unknown) (no date) (unknown) [facility]) Result panel 226 (unknown) (no date) (unknown) [facility]) Result panel 227 (unknown) (no date) (unknown) [facility] Result panel 228 (unknown) (no date) (unknown[facility]) Result panel 229 (unknown) (no date) (unknown) [facility] Result panel 230 (unknown) (no date) (unknown) [facility]) Result panel 231 (unknown) (no date) (unknown) [facility] Result panel 232 (unknown) (no date) (unknown) [facility]) Result panel 233 (unknown) (no date) (unknown) [facility] Result panel 234 (unknown) (no date) (unknown[facility]) Result panel 235 (unknown) (no date) (unknown) [facility] Result panel 236 (unknown) (no date) (unknown) [facility] Result panel 237 (unknown) (no date) (unknown[facility] Result panel 238 (unknown) (no date) (unknown) [facility] Result panel 239 (unknown) (no date) (unknown) [facility] Result panel 240 (unknown) (no date) (unknown[facility] Result panel 241 (unknown) (no date) (unknown) [facility]) Result panel 242 (unknown) (no date) (unknown) [facility] Result panel 243 (unknown) (no date) (unknown) [facility] Result panel 244 (unknown) (no date) (unknown) [facility] Result panel 245 (unknown) (no date) (unknown[facility] Result panel 246 (unknown) (no date) (unknown) [facility]) Result panel 247 (unknown) (no date) (unknown) [facility] Result panel 248 (unknown) (no date) (unknown) [facility] Result panel 249 (unknown) (no date) (unknown) [facility]) Result panel 250 (unknown) (no date) (unknown) [facility]) Result panel 251 (unknown) (no date) (unknown) [facility]) Result panel 252 (unknown) (no date) (unknown) [facility]) Result panel 253 (unknown) (no date) (unknown) [facility]) Result panel 254 (unknown) (no date) (unknown) [facility]) Result panel 255 (unknown) (no date) (unknown) [facility]) Result panel 256 (unknown) (no date) (unknown) [facility]) Result panel 257 (unknown) (no date) (unknown) [facility]) Result panel 258 (unknown) (no date) (unknown) [facility]) Result panel 259 (unknown) (no date) (unknown) [facility]) Result panel 260 (unknown) (no date) (unknown) [facility]) Result panel 261 (unknown) (no date) (unknown) [facility] Result panel 262 (unknown) (no date) (unknown) [facility]) Result panel 263 (unknown) (no date) (unknown) [facility] Result panel 264 (unknown) (no date) (unknown[facility]) Result panel 265 (unknown) (no date) (unknown) [facility] Result panel 266 (unknown) (no date) (unknown) [facility]) Result panel 267 (unknown) (no date) (unknown) [facility]) Result panel 268 (unknown) (no date) (unknown) [facility]) Result panel 269 (unknown) (no date) (unknown) [facility]) Result panel 270 (unknown) (no date) (unknown) [facility]) Result panel 271 (unknown) (no date) (unknown) [facility]) Result panel 272 (unknown) (no date) (unknown) [facility]) Result panel 273 (unknown) (no date) (unknown) [facility]) Result panel 274 (unknown) (no date) (unknown) [facility]) Result panel 275 (unknown) (no date) (unknown) [facility] Result panel 276 (unknown) (no date) (unknown) [facility]) Result panel 277 (unknown) (no date) (unknown) [facility]) Result panel 278 (unknown) (no date) (unknown) [facility] Result panel 279 (unknown) (no date) (unknown) [facility]) Result panel 280 (unknown) (no date) (unknown) [facility]) Result panel 281 (unknown) (no date) (unknown) [facility]) Result panel 282 (unknown) (no date) (unknown) [facility]) Result panel 283 (unknown) (no date) (unknown) [facility]) Result panel 284 (unknown) (no date) (unknown) [facility] Result panel 285 (unknown) (no date) (unknown) [facility]) Result panel 286 (unknown) (no date) (unknown) [facility]) Result panel 287 (unknown) (no date) (unknown[facility]) Result panel 288 (unknown) (no date) (unknown) [facility]) Result panel 289 (unknown) (no date) (unknown) [facility]) Result panel 290 (unknown) (no date) (unknown) [facility]) Result panel 291 (unknown) (no date) (unknown) [facility]) Result panel 292 (unknown) (no date) (unknown) [facility]) Result panel 293 (unknown) (no date) (unknown) [facility]) Result panel 294 (unknown) (no date) (unknown) [facility]) Result panel 295 (unknown) (no date) (unknown) [facility] Result panel 296 (unknown) (no date) (unknown) [facility]) Result panel 297 (unknown) (no date) (unknown) [facility]) Result panel 298 (unknown) (no date) (unknown) [facility]) Result panel 299 (unknown) (no date) (unknown) [facility]) Result panel 300 (unknown) (no date) (unknown) [facility]) Result panel 301 (unknown) (no date) (unknown) [facility]) Result panel 302 (unknown) (no date) (unknown) [facility]) Result panel 303 (unknown) (no date) (unknown) [facility]) Result panel 304 (unknown) (no date) (unknown) [facility]) Result panel 305 (unknown) (no date) (unknown) [facility]) Result panel 306 (unknown) (no date) (unknown) [facility]) Result panel 307 (unknown) (no date) (unknown) [facility]) Result panel 308 (unknown) (no date) (unknown) [facility]) Result panel 309 (unknown) (no date) (unknown) [facility]) Result panel 310 (unknown) (no date) (unknown[facility]) Result panel 311 (unknown) (no date) (unknown) [facility]) Result panel 312 (unknown) (no date) (unknown) [facility]) Result panel 313 (unknown) (no date) (unknown) [facility]) Result panel 314 (unknown) (no date) (unknown) [facility]) Result panel 315 (unknown) (no date) (unknown) [facility]) Result panel 316 (unknown) (no date) (unknown) [facility]) Result panel 317 (unknown) (no date) (unknown) [facility]) Result panel 318 (unknown) (no date) (unknown) [facility]) Result panel 319 (unknown) (no date) (unknown) [facility]) Result panel 320 (unknown) (no date) (unknown) [facility]) Result panel 321 (unknown) (no date) (unknown) [facility]) Result panel 322 (unknown) (no date) (unknown) [facility]) Result panel 323 (unknown) (no date) (unknown) [facility]) Result panel 324 (unknown) (no date) (unknown) [facility]) Result panel 325 (unknown) (no date) (unknown) [facility]) Result panel 326 (unknown) (no date) (unknown) [facility]) Result panel 327 (unknown) (no date) (unknown) [facility]) Result panel 328 (unknown) (no date) (unknown) [facility]) Result panel 329 (unknown) (no date) (unknown) [facility]) Result panel 330 (unknown) (no date) (unknown) [facility]) Result panel 331 (unknown) (no date) (unknown) [facility]) Result panel 332 (unknown) (no date) (unknown) [facility]) Result panel 333 (unknown) (no date) (unknown) [facility]) Result panel 334 (unknown) (no date) (unknown) [facility]) Result panel 335 (unknown) (no date) (unknown) [facility]) Result panel 336 (unknown) (no date) (unknown) [facility]) Result panel 337 (unknown) (no date) (unknown) [facility]) Result panel 338 (unknown) (no date) (unknown) [facility]) Result panel 339 (unknown) (no date) (unknown) [facility]) Result panel 340 (unknown) (no date) (unknown) [facility]) Result panel 341 (unknown) (no date) (unknown) [facility]) Result panel 342 (unknown) (no date) (unknown) [facility]) Result panel 343 (unknown) (no date) (unknown) [facility]) Result panel 344 (unknown) (no date) (unknown) [facility]) Result panel 345 (unknown) (no date) (unknown) [facility]) Result panel 346 (unknown) (no date) (unknown) [facility]) Result panel 347 (unknown) (no date) (unknown) [facility]) Result panel 348 (unknown) (no date) (unknown) [facility]) Result panel 349 (unknown) (no date) (unknown) [facility]) Result panel 350 (unknown) (no date) (unknown) [facility]) Result panel 351 (unknown) (no date) (unknown) [facility]) Result panel 352 (unknown) (no date) (unknown) [facility]) Result panel 353 (unknown) (no date) (unknown) [facility]) Result panel 354 (unknown) (no date) (unknown) [facility]) Result panel 355 (unknown) (no date) (unknown) [facility]) Result panel 356 (unknown) (no date) (unknown) [facility]) Result panel 357 (unknown) (no date) (unknown) [facility]) Result panel 358 (unknown) (no date) (unknown) [facility]) Result panel 359 (unknown) (no date) (unknown) [facility]) Result panel 360 (unknown) (no date) (unknown) [facility]) Result panel 361 (unknown) (no date) (unknown) [facility]) Result panel 362 (unknown) (no date) (unknown) [facility]) Result panel 363 (unknown) (no date) (unknown) [facility]) Result panel 364 (unknown) (no date) (unknown) [facility]) Result panel 365 (unknown) (no date) (unknown) [facility]) Result panel 366 (unknown) (no date) (unknown) [facility]) Result panel 367 (unknown) (no date) (unknown) [facility]) Result panel 368 (unknown) (no date) (unknown) [facility]) Result panel 369 (unknown) (no date) (unknown) [facility]) Result panel 370 (unknown) (no date) (unknown) [facility]) Result panel 371 (unknown) (no date) (unknown) [facility]) Result panel 372 (unknown) (no date) (unknown) [facility]) Result panel 373 (unknown) (no date) (unknown) [facility]) Result panel 374 (unknown) (no date) (unknown) [facility]) Result panel 375 (unknown) (no date) (unknown) [facility]) Result panel 376 (unknown) (no date) (unknown) [facility]) Result panel 377 (unknown) (no date) (unknown) [facility]) Result panel 378 (unknown) (no date) (unknown) [facility]) Result panel 379 (unknown) (no date) (unknown) [facility]) Result panel 380 (unknown) (no date) (unknown) [facility]) Result panel 381 (unknown) (no date) (unknown) [facility]) Result panel 382 (unknown) (no date) (unknown) [facility]) Result panel 383 (unknown) (no date) (unknown) [facility]) Result panel 384 (unknown) (no date) (unknown) [facility]) Result panel 385 (unknown) (no date) (unknown) [facility]) Result panel 386 (unknown) (no date) (unknown) [facility]) Result panel 387 (unknown) (no date) (unknown) [facility]) Result panel 388 (unknown) (no date) (unknown) [facility]) Result panel 389 (unknown) (no date) (unknown) [facility]) Result panel 390 (unknown) (no date) (unknown) [facility]) Result panel 391 (unknown) (no date) (unknown) [facility]) Result panel 392 (unknown) (no date) (unknown) [facility]) Result panel 393 (unknown) (no date) (unknown) [facility]) Result panel 394 (unknown) (no date) (unknown) [facility]) Result panel 395 (unknown) (no date) (unknown) [facility]) Result panel 396 (unknown) (no date) (unknown) [facility]) Result panel 397 (unknown) (no date) (unknown) [facility]) Result panel 398 (unknown) (no date) (unknown) [facility]) Result panel 399 (unknown) (no date) (unknown) [facility]) Result panel 400 (unknown) (no date) (unknown) [facility]) Result panel 401 (unknown) (no date) (unknown) [facility]) Result panel 402 (unknown) (no date) (unknown) [facility]) Result panel 403 (unknown) (no date) (unknown) [facility]) Result panel 404 (unknown) (no date) (unknown) [facility]) Result panel 405 (unknown) (no date) (unknown) [facility]) Result panel 406 (unknown) (no date) (unknown) [facility]) Result panel 407 (unknown) (no date) (unknown) [facility]) Result panel 408 (unknown) (no date) (unknown) [facility]) Result panel 409 (unknown) (no date) (unknown) [facility]) Result panel 410 (unknown) (no date) (unknown) [facility]) Result panel 411 (unknown) (no date) (unknown) [facility]) Result panel 412 (unknown) (no date) (unknown) [facility]) Result panel 413 (unknown) (no date) (unknown) [facility]) Result panel 414 (unknown) (no date) (unknown) [facility]) Result panel 415 (unknown) (no date) (unknown[facility]) Result panel 416 (unknown) (no date) (unknown) [facility]) Result panel 417 (unknown) (no date) (unknown) [facility]) Result panel 418 (unknown) (no date) (unknown) [facility]) Result panel 419 (unknown) (no date) (unknown) [facility]) Result panel 420 (unknown) (no date) (unknown) [facility]) Result panel 421 (unknown) (no date) (unknown) [facility]) Result panel 422 (unknown) (no date) (unknown) [facility]) Result panel 423 (unknown) (no date) (unknown) [facility]) Result panel 424 (unknown) (no date) (unknown) [facility]) Result panel 425 (unknown) (no date) (unknown) [facility]) Result panel 426 (unknown) (no date) (unknown) [facility]) Result panel 427 (unknown) (no date) (unknown) [facility]) Result panel 428 (unknown) (no date) (unknown) [facility]) Result panel 429 (unknown) (no date) (unknown) [facility]) Result panel 430 (unknown) (no date) (unknown) [facility]) Result panel 431 (unknown) (no date) (unknown) [facility]) Result panel 432 (unknown) (no date) (unknown) [facility]) Result panel 433 (unknown) (no date) (unknown) [facility]) Result panel 434 (unknown) (no date) (unknown) [facility]) Result panel 435 (unknown) (no date) (unknown) [facility]) Result panel 436 (unknown) (no date) (unknown) [facility]) Result panel 437 (unknown) (no date) (unknown) [facility]) Result panel 438 (unknown) (no date) (unknown) [facility]) Result panel 439 (unknown) (no date) (unknown) [facility]) Result panel 440 (unknown) (no date) (unknown) [facility]) Result panel 441 (unknown) (no date) (unknown) [facility]) Result panel 442 (unknown) (no date) (unknown) [facility]) Result panel 443 (unknown) (no date) (unknown) [facility]) Result panel 444 (unknown) (no date) (unknown) [facility]) Result panel 445 (unknown) (no date) (unknown) [facility]) Result panel 446 (unknown) (no date) (unknown) [facility]) Result panel 447 (unknown) (no date) (unknown) [facility]) Result panel 448 (unknown) (no date) (unknown) [facility]) Result panel 449 (unknown) (no date) (unknown) [facility]) Result panel 450 (unknown) (no date) (unknown) [facility]) Result panel 451 (unknown) (no date) (unknown) [facility]) Result panel 452 (unknown) (no date) (unknown) [facility]) Result panel 453 (unknown) (no date) (unknown) [facility]) Result panel 454 (unknown) (no date) (unknown) [facility]) Result panel 455 (unknown) (no date) (unknown) [facility]) Result panel 456 (unknown) (no date) (unknown) [facility] Result panel 457 (unknown) (no date) (unknown) [facility]) Result panel 458 (unknown) (no date) (unknown) [facility] Result panel 459 (unknown) (no date) (unknown) [facility] [facility] Result panel 460 (unknown) (no date) (unknown) [facility]) Result panel 461 (unknown) (no date) (unknown) [facility] Result panel 462 (unknown) (no date) (unknown) [facility] Result panel 463 (unknown) (no date) (unknown[facility] Result panel 464 (unknown) (no date) (unknown) [facility]) Result panel 465 (unknown) (no date) (unknown) [facility] Result panel 466 (unknown) (no date) (unknown) [facility] Result panel 467 (unknown) (no date) (unknown[facility] Result panel 468 (unknown) (no date) (unknown) [facility] Result panel 469 (unknown) (no date) (unknown) [facility] Result panel 470 (unknown) (no date) (unknown) [facility] Result panel 471 (unknown) (no date) (unknown) [facility] Result panel 472 (unknown) (no date) (unknown) [facility] Result panel 473 (unknown) (no date) (unknown) [facility] Result panel 474 (unknown) (no date) (unknown) [facility] Result panel 475 (unknown) (no date) (unknown) [facility] Result panel 476 (unknown) (no date) (unknown) [facility] Result panel 477 (unknown) (no date) (unknown) [facility] Result panel 478 (unknown) (no date) (unknown) [facility] Result panel 479 (unknown) (no date) (unknown) [facility]) Result panel 480 (unknown) (no date) (unknown[facility] Result panel 481 (unknown) (no date) (unknown) [facility] Result panel 482 (unknown) (no date) (unknown) [facility]) Result panel 483 (unknown) (no date) (unknown) [facility] Result panel 484 (unknown) (no date) (unknown) [facility] Result panel 485 (unknown) (no date) (unknown) [facility] Result panel 486 (unknown) (no date) (unknown) [facility] Result panel 487 (unknown) (no date) (unknown) [facility] Result panel 488 (unknown) (no date) (unknown) [facility] Result panel 489 (unknown) (no date) (unknown) [facility]) Result panel 490 (unknown) (no date) (unknown) [facility]) Result panel 491 (unknown) (no date) (unknown[facility]) Result panel 492 (unknown) (no date) (unknown[facility]) Result panel 493 (unknown) (no date) (unknown) [facility] Result panel 494 (unknown) (no date) (unknown) [facility] Result panel 495 (unknown) (no date) (unknown) [facility] Result panel 496 (unknown) (no date) (unknown) [facility]) Result panel 497 (unknown) (no date) (unknown[facility] Result panel 498 (unknown) (no date) (unknown[facility]) Result panel 499 (unknown) (no date) (unknown[facility]) Result panel 500 (unknown) (no date) (unknown) [facility] Result panel 501 (unknown) (no date) (unknown) [facility] Result panel 502 (unknown) (no date) (unknown) [facility]) Result panel 503 (unknown) (no date) (unknown) [facility] Result panel 504 (unknown) (no date) (unknown) [facility]) Result panel 505 (unknown) (no date) (unknown) [facility]) Result panel 506 (unknown) (no date) (unknown) [facility]) Result panel 507 (unknown) (no date) (unknown) [facility] Result panel 508 (unknown) (no date) (unknown) [facility]) Result panel 509 (unknown) (no date) (unknown[facility]) Result panel 510 (unknown) (no date) (unknown) [facility] Result panel 511 (unknown) (no date) (unknown) [facility]) Result panel 512 (unknown) (no date) (unknown) [facility]) Result panel 513 (unknown) (no date) (unknown[facility]) Result panel 514 (unknown) (no date) (unknown) [facility] Result panel 515 (unknown) (no date) (unknown) [facility] Result panel 516 (unknown) (no date) (unknown) [facility]) Result panel 517 (unknown) (no date) (unknown) [facility]) Result panel 518 (unknown) (no date) (unknown[facility] Result panel 519 (unknown) (no date) (unknown) [facility]) Result panel 520 (unknown) (no date) (unknown) [facility]) Result panel 521 (unknown) (no date) (unknown) [facility]) Result panel 522 (unknown) (no date) (unknown) [facility]) Result panel 523 (unknown) (no date) (unknown) [facility]) Result panel 524 (unknown) (no date) (unknown[facility] Result panel 525 (unknown) (no date) (unknown) [facility]) Result panel 526 (unknown) (no date) (unknown) [facility] Result panel 527 (unknown) (no date) (unknown) [facility] Result panel 528 (unknown) (no date) (unknown) [facility]) Result panel 529 (unknown) (no date) (unknown) [facility]) Result panel 530 (unknown) (no date) (unknown) [facility]) Result panel 531 (unknown) (no date) (unknown[facility]) Result panel 532 (unknown) (no date) (unknown) [facility]) Result panel 533 (unknown) (no date) (unknown[facility] Result panel 534 (unknown) (no date) (unknown) [facility]) Result panel 535 (unknown) (no date) (unknown) [facility]) Result panel 536 (unknown) (no date) (unknown) [facility]) Result panel 537 (unknown) (no date) (unknown) [facility]) Result panel 538 (unknown) (no date) (unknown[facility]) Result panel 539 (unknown) (no date) (unknown) [facility] Result panel 540 (unknown) (no date) (unknown) [facility]) Result panel 541 (unknown) (no date) (unknown) [facility]) Result panel 542 (unknown) (no date) (unknown) [facility]) Result panel 543 (unknown) (no date) (unknown) [facility]) Result panel 544 (unknown) (no date) (unknown) [facility]) Result panel 545 (unknown) (no date) (unknown[facility]) Result panel 546 (unknown) (no date) (unknown) [facility]) Result panel 547 (unknown) (no date) (unknown[facility]) Result panel 548 (unknown) (no date) (unknown) [facility]) Result panel 549 (unknown) (no date) (unknown[facility]) Result panel 550 (unknown) (no date) (unknown) [facility]) Result panel 551 (unknown) (no date) (unknown) [facility]) Result panel 552 (unknown) (no date) (unknown) [facility]) Result panel 553 (unknown) (no date) (unknown) [facility]) Result panel 554 (unknown) (no date) (unknown) [facility]) Result panel 555 (unknown) (no date) (unknown) [facility]) Result panel 556 (unknown) (no date) (unknown) [facility]) Result panel 557 (unknown) (no date) (unknown) [facility]) Result panel 558 (unknown) (no date) (unknown) [facility]) Result panel 559 (unknown) (no date) (unknown) [facility]) Result panel 560 (unknown) (no date) (unknown) [facility]) Result panel 561 (unknown) (no date) (unknown) [facility]) Result panel 562 (unknown) (no date) (unknown) [facility]) Result panel 563 (unknown) (no date) (unknown) [facility]) Result panel 564 (unknown) (no date) (unknown) [facility]) Result panel 565 (unknown) (no date) (unknown) [facility]) Result panel 566 (unknown) (no date) (unknown) [facility]) Result panel 567 (unknown) (no date) (unknown) [facility]) Result panel 568 (unknown) (no date) (unknown) [facility]) Result panel 569 (unknown) (no date) (unknown) [facility]) Result panel 570 (unknown) (no date) (unknown) [facility]) Result panel 571 (unknown) (no date) (unknown) [facility]) Result panel 572 (unknown) (no date) (unknown) [facility]) Result panel 573 (unknown) (no date) (unknown) [facility]) Result panel 574 (unknown) (no date) (unknown[facility]) Result panel 575 (unknown) (no date) (unknown) [facility]) Result panel 576 (unknown) (no date) (unknown) [facility]) Result panel 577 (unknown) (no date) (unknown) [facility]) Result panel 578 (unknown) (no date) (unknown) [facility]) Result panel 579 (unknown) (no date) (unknown) [facility]) Result panel 580 (unknown) (no date) (unknown) [facility]) Result panel 581 (unknown) (no date) (unknown) [facility]) Result panel 582 (unknown) (no date) (unknown) [facility]) Result panel 583 (unknown) (no date) (unknown) [facility]) Result panel 584 (unknown) (no date) (unknown) [facility]) Result panel 585 (unknown) (no date) (unknown) [facility]) Result panel 586 (unknown) (no date) (unknown) [facility]) Result panel 587 (unknown) (no date) (unknown) [facility]) Result panel 588 (unknown) (no date) (unknown) [facility]) Result panel 589 (unknown) (no date) (unknown) [facility]) Result panel 590 (unknown) (no date) (unknown) [facility]) Result panel 591 (unknown) (no date) (unknown) [facility]) Result panel 592 (unknown) (no date) (unknown) [facility]) Result panel 593 (unknown) (no date) (unknown) [facility]) Result panel 594 (unknown) (no date) (unknown) [facility]) Result panel 595 (unknown) (no date) (unknown) [facility]) Result panel 596 (unknown) (no date) (unknown) [facility]) Result panel 597 (unknown) (no date) (unknown) [facility]) Result panel 598 (unknown) (no date) (unknown) [facility]) Result panel 599 (unknown) (no date) (unknown) [facility]) Result panel 600 (unknown) (no date) (unknown) [facility]) Result panel 601 (unknown) (no date) (unknown) [facility]) Result panel 602 (unknown) (no date) (unknown) [facility]) Result panel 603 (unknown) (no date) (unknown) [facility]) Result panel 604 (unknown) (no date) (unknown) [facility]) Result panel 605 (unknown) (no date) (unknown[facility]) Result panel 606 (unknown) (no date) (unknown[facility]) Result panel 607 (unknown) (no date) (unknown[facility]) Result panel 608 (unknown) (no date) (unknown[facility]) Result panel 609 (unknown) (no date) (unknown) [facility]) Result panel 610 (unknown) (no date) (unknown) [facility]) Result panel 611 (unknown) (no date) (unknown) [facility]) Result panel 612 (unknown) (no date) (unknown) [facility]) Result panel 613 (unknown) (no date) (unknown) [facility]) Result panel 614 (unknown) (no date) (unknown) [facility]) Result panel 615 (unknown) (no date) (unknown) [facility]) Result panel 616 (unknown) (no date) (unknown) [facility]) Result panel 617 (unknown) (no date) (unknown) [facility]) Result panel 618 (unknown) (no date) (unknown) [facility]) Result panel 619 (unknown) (no date) (unknown) [facility]) Result panel 620 (unknown) (no date) (unknown) [facility]) Result panel 621 (unknown) (no date) (unknown) [facility]) Result panel 622 (unknown) (no date) (unknown) [facility]) Result panel 623 (unknown) (no date) (unknown) [facility]) Result panel 624 (unknown) (no date) (unknown[facility]) Result panel 625 (unknown) (no date) (unknown) [facility]) Result panel 626 (unknown) (no date) (unknown) [facility]) Result panel 627 (unknown) (no date) (unknown) [facility]) Result panel 628 (unknown) (no date) (unknown) [facility]) Result panel 629 (unknown) (no date) (unknown) [facility]) Result panel 630 (unknown) (no date) (unknown) [facility]) Result panel 631 (unknown) (no date) (unknown) [facility]) Result panel 632 (unknown) (no date) (unknown) [facility]) Result panel 633 (unknown) (no date) (unknown) [facility]) Result panel 634 (unknown) (no date) (unknown) [facility]) Result panel 635 (unknown) (no date) (unknown) [facility]) Result panel 636 (unknown) (no date) (unknown) [facility]) Result panel 637 (unknown) (no date) (unknown) [facility]) Result panel 638 (unknown) (no date) (unknown) [facility]) Result panel 639 (unknown) (no date) (unknown) [facility]) Result panel 640 (unknown) (no date) (unknown) [facility]) Result panel 641 (unknown) (no date) (unknown) [facility]) Result panel 642 (unknown) (no date) (unknown) [facility]) Result panel 643 (unknown) (no date) (unknown) [facility]) Result panel 644 (unknown) (no date) (unknown) [facility]) Result panel 645 (unknown) (no date) (unknown) [facility]) Result panel 646 (unknown) (no date) (unknown) [facility]) Result panel 647 (unknown) (no date) (unknown[facility]) Result panel 648 (unknown) (no date) (unknown) [facility]) Result panel 649 (unknown) (no date) (unknown) [facility]) Result panel 650 (unknown) (no date) (unknown) [facility]) Result panel 651 (unknown) (no date) (unknown) [facility]) Result panel 652 (unknown) (no date) (unknown) [facility]) Result panel 653 (unknown) (no date) (unknown) [facility]) Result panel 654 (unknown) (no date) (unknown) [facility]) Result panel 655 (unknown) (no date) (unknown) [facility]) Result panel 656 (unknown) (no date) (unknown) [facility]) Result panel 657 (unknown) (no date) (unknown) [facility]) Result panel 658 (unknown) (no date) (unknown) [facility]) Result panel 659 (unknown) (no date) (unknown) [facility]) Result panel 660 (unknown) (no date) (unknown) [facility]) Result panel 661 (unknown) (no date) (unknown) [facility]) Result panel 662 (unknown) (no date) (unknown) [facility]) Result panel 663 (unknown) (no date) (unknown) [facility]) Result panel 664 (unknown) (no date) (unknown) [facility]) Result panel 665 (unknown) (no date) (unknown) [facility]) Result panel 666 (unknown) (no date) (unknown) [facility]) Result panel 667 (unknown) (no date) (unknown) [facility]) Result panel 668 (unknown) (no date) (unknown[facility]) Result panel 669 (unknown) (no date) (unknown) [facility]) Result panel 670 (unknown) (no date) (unknown) [facility]) Result panel 671 (unknown) (no date) (unknown) [facility]) Result panel 672 (unknown) (no date) (unknown) [facility]) Result panel 673 (unknown) (no date) (unknown) [facility]) Result panel 674 (unknown) (no date) (unknown) [facility]) Result panel 675 (unknown) (no date) (unknown) [facility]) Result panel 676 (unknown) (no date) (unknown) [facility]) Result panel 677 (unknown) (no date) (unknown) [facility]) Result panel 678 (unknown) (no date) (unknown[facility]) Result panel 679 (unknown) (no date) (unknown[facility]) Result panel 680 (unknown) (no date) (unknown) [facility]) Result panel 681 (unknown) (no date) (unknown) [facility]) Result panel 682 (unknown) (no date) (unknown) [facility]) Result panel 683 (unknown) (no date) (unknown) [facility]) Result panel 684 (unknown) (no date) (unknown) [facility]) Result panel 685 (unknown) (no date) (unknown) [facility]) Result panel 686 (unknown) (no date) (unknown) [facility]) Result panel 687 (unknown) (no date) (unknown) [facility]) Result panel 688 (unknown) (no date) (unknown) [facility]) Result panel 689 (unknown) (no date) (unknown) [facility]) Result panel 690 (unknown) (no date) (unknown) [facility]) Result panel 691 (unknown) (no date) (unknown) [facility]) Result panel 692 (unknown) (no date) (unknown) [facility]) Result panel 693 (unknown) (no date) (unknown) [facility]) Result panel 694 (unknown) (no date) (unknown) [facility]) Result panel 695 (unknown) (no date) (unknown) [facility]) Result panel 696 (unknown) (no date) (unknown) [facility]) Result panel 697 (unknown) (no date) (unknown) [facility]) Result panel 698 (unknown) (no date) (unknown) [facility] Result panel 699 (unknown) (no date) (unknown) [facility] Result panel 700 (unknown) (no date) (unknown) [facility]) Result panel 701 (unknown) (no date) (unknown) [facility]) Result panel 702 (unknown) (no date) (unknown) [facility] Result panel 703 (unknown) (no date) (unknown[facility]) Result panel 704 (unknown) (no date) (unknown) [facility]) Result panel 705 (unknown) (no date) (unknown) [facility]) Result panel 706 (unknown) (no date) (unknown) [facility]) Result panel 707 (unknown) (no date) (unknown) [facility]) Result panel 708 (unknown) (no date) (unknown) [facility]) Result panel 709 (unknown) (no date) (unknown[facility]) Result panel 710 (unknown) (no date) (unknown) [facility]) Result panel 711 (unknown) (no date) (unknown) [facility]) Result panel 712 (unknown) (no date) (unknown) [facility]) Result panel 713 (unknown) (no date) (unknown) [facility]) Result panel 714 (unknown) (no date) (unknown) [facility]) Result panel 715 (unknown) (no date) (unknown) [facility]) Result panel 716 (unknown) (no date) (unknown) [facility]) Result panel 717 (unknown) (no date) (unknown[facility]) Result panel 718 (unknown) (no date) (unknown) [facility]) Result panel 719 (unknown) (no date) (unknown) [facility]) Result panel 720 (unknown) (no date) (unknown[facility]) Result panel 721 (unknown) (no date) (unknown) [facility]) Result panel 722 (unknown) (no date) (unknown) [facility]) Result panel 723 (unknown) (no date) (unknown[facility]) Result panel 724 (unknown) (no date) (unknown) [facility]) Result panel 725 (unknown) (no date) (unknown) [facility]) Result panel 726 (unknown) (no date) (unknown) [facility]) Result panel 727 (unknown) (no date) (unknown) [facility]) Result panel 728 (unknown) (no date) (unknown) [facility]) Result panel 729 (unknown) (no date) (unknown) [facility]) Result panel 730 (unknown) (no date) (unknown) [facility]) Result panel 731 (unknown) (no date) (unknown) [facility]) Result panel 732 (unknown) (no date) (unknown) [facility]) Result panel 733 (unknown) (no date) (unknown) [facility]) Result panel 734 (unknown) (no date) (unknown[facility]) Result panel 735 (unknown) (no date) (unknown[facility]) Result panel 736 (unknown) (no date) (unknown) [facility]) Result panel 737 (unknown) (no date) (unknown[facility]) Result panel 738 (unknown) (no date) (unknown) [facility]) Result panel 739 (unknown) (no date) (unknown) [facility]) Result panel 740 (unknown) (no date) (unknown) [facility]) Result panel 741 (unknown) (no date) (unknown) [facility]) Result panel 742 (unknown) (no date) (unknown) [facility] Result panel 743 (unknown) (no date) (unknown[facility]) Result panel 744 (unknown) (no date) (unknown) [facility]) Result panel 745 (unknown) (no date) (unknown) [facility]) Result panel 746 (unknown) (no date) (unknown) [facility]) Result panel 747 (unknown) (no date) (unknown) [facility]) Result panel 748 (unknown) (no date) (unknown) [facility]) Result panel 749 (unknown) (no date) (unknown) [facility]) Result panel 750 (unknown) (no date) (unknown[facility]) Result panel 751 (unknown) (no date) (unknown) [facility]) Result panel 752 (unknown) (no date) (unknown) [facility]) Result panel 753 (unknown) (no date) (unknown) [facility]) Result panel 754 (unknown) (no date) (unknown) [facility]) Result panel 755 (unknown) (no date) (unknown) [facility]) Result panel 756 (unknown) (no date) (unknown) [facility]) Result panel 757 (unknown) (no date) (unknown) [facility]) Result panel 758 (unknown) (no date) (unknown) [facility]) Result panel 759 (unknown) (no date) (unknown) [facility]) Result panel 760 (unknown) (no date) (unknown) [facility]) Result panel 761 (unknown) (no date) (unknown[facility]) Result panel 762 (unknown) (no date) (unknown) [facility]) Result panel 763 (unknown) (no date) (unknown) [facility]) Result panel 764 (unknown) (no date) (unknown) [facility]) Result panel 765 (unknown) (no date) (unknown) [facility]) Result panel 766 (unknown) (no date) (unknown) [facility]) Result panel 767 (unknown) (no date) (unknown) [facility]) Result panel 768 (unknown) (no date) (unknown) [facility]) Result panel 769 (unknown) (no date) (unknown[facility]) Result panel 770 (unknown) (no date) (unknown) [facility]) Result panel 771 (unknown) (no date) (unknown) [facility]) Result panel 772 (unknown) (no date) (unknown) [facility]) Result panel 773 (unknown) (no date) (unknown[facility]) Result panel 774 (unknown) (no date) (unknown) [facility]) Result panel 775 (unknown) (no date) (unknown) [facility]) Result panel 776 (unknown) (no date) (unknown) [facility]) Result panel 777 (unknown) (no date) (unknown) [facility]) Result panel 778 (unknown) (no date) (unknown) [facility]) Result panel 779 (unknown) (no date) (unknown) [facility]) Result panel 780 (unknown) (no date) (unknown) [facility]) Result panel 781 (unknown) (no date) (unknown) [facility]) Result panel 782 (unknown) (no date) (unknown) [facility]) Result panel 783 (unknown) (no date) (unknown) [facility]) Result panel 784 (unknown) (no date) (unknown) [facility]) Result panel 785 (unknown) (no date) (unknown) [facility]) Result panel 786 (unknown) (no date) (unknown) [facility]) Result panel 787 (unknown) (no date) (unknown) [facility]) Result panel 788 (unknown) (no date) (unknown) [facility]) Result panel 789 (unknown) (no date) (unknown) [facility]) Result panel 790 (unknown) (no date) (unknown) [facility]) Result panel 791 (unknown) (no date) (unknown) [facility]) Result panel 792 (unknown) (no date) (unknown) [facility]) Result panel 793 (unknown) (no date) (unknown) [facility]) Result panel 794 (unknown) (no date) (unknown) [facility]) Result panel 795 (unknown) (no date) (unknown) [facility]) Result panel 796 (unknown) (no date) (unknown) [facility]) Result panel 797 (unknown) (no date) (unknown) [facility]) Result panel 798 (unknown) (no date) (unknown) [facility]) Result panel 799 (unknown) (no date) (unknown) [facility]) Result panel 800 (unknown) (no date) (unknown[facility]) Result panel 801 (unknown) (no date) (unknown) [facility]) Result panel 802 (unknown) (no date) (unknown) [facility]) Result panel 803 (unknown) (no date) (unknown) [facility]) Result panel 804 (unknown) (no date) (unknown) [facility]) Result panel 805 (unknown) (no date) (unknown) [facility]) Result panel 806 (unknown) (no date) (unknown) [facility]) Result panel 807 (unknown) (no date) (unknown) [facility]) Result panel 808 (unknown) (no date) (unknown) [facility]) Result panel 809 (unknown) (no date) (unknown) [facility]) Result panel 810 (unknown) (no date) (unknown) [facility]) Result panel 811 (unknown) (no date) (unknown) [facility]) Result panel 812 (unknown) (no date) (unknown) [facility]) Result panel 813 (unknown) (no date) (unknown) [facility]) Result panel 814 (unknown) (no date) (unknown) [facility]) Result panel 815 (unknown) (no date) (unknown) [facility]) Result panel 816 (unknown) (no date) (unknown) [facility]) Result panel 817 (unknown) (no date) (unknown) [facility]) Result panel 818 (unknown) (no date) (unknown[facility]) Result panel 819 (unknown) (no date) (unknown) [facility]) Result panel 820 (unknown) (no date) (unknown) [facility]) Result panel 821 (unknown) (no date) (unknown) [facility]) Result panel 822 (unknown) (no date) (unknown) [facility]) Result panel 823 (unknown) (no date) (unknown) [facility]) Result panel 824 (unknown) (no date) (unknown) [facility]) Result panel 825 (unknown) (no date) (unknown) [facility]) Result panel 826 (unknown) (no date) (unknown) [facility]) Result panel 827 (unknown) (no date) (unknown) [facility]) Result panel 828 (unknown) (no date) (unknown) [facility]) Result panel 829 (unknown) (no date) (unknown) [facility]) Result panel 830 (unknown) (no date) (unknown) [facility]) Result panel 831 (unknown) (no date) (unknown) [facility]) Result panel 832 (unknown) (no date) (unknown) [facility]) Result panel 833 (unknown) (no date) (unknown) [facility]) Result panel 834 (unknown) (no date) (unknown) [facility]) Result panel 835 (unknown) (no date) (unknown) [facility]) Result panel 836 (unknown) (no date) (unknown) [facility]) Result panel 837 (unknown) (no date) (unknown) [facility]) Result panel 838 (unknown) (no date) (unknown) [facility]) Result panel 839 (unknown) (no date) (unknown) [facility]) Result panel 840 (unknown) (no date) (unknown) [facility]) Result panel 841 (unknown) (no date) (unknown) [facility]) Result panel 842 (unknown) (no date) (unknown) [facility]) Result panel 843 (unknown) (no date) (unknown) [facility]) Result panel 844 (unknown) (no date) (unknown) [facility]) Result panel 845 (unknown) (no date) (unknown) [facility]) Result panel 846 (unknown) (no date) (unknown) [facility]) Result panel 847 (unknown) (no date) (unknown) [facility]) Result panel 848 (unknown) (no date) (unknown) [facility]) Result panel 849 (unknown) (no date) (unknown) [facility]) Result panel 850 (unknown) (no date) (unknown) [facility]) Result panel 851 (unknown) (no date) (unknown) [facility]) Result panel 852 (unknown) (no date) (unknown) [facility]) Result panel 853 (unknown) (no date) (unknown) [facility]) Result panel 854 (unknown) (no date) (unknown) [facility]) Result panel 855 (unknown) (no date) (unknown) [facility]) Result panel 856 (unknown) (no date) (unknown) [facility]) Result panel 857 (unknown) (no date) (unknown) [facility]) Result panel 858 (unknown) (no date) (unknown) [facility]) Result panel 859 (unknown) (no date) (unknown) [facility]) Result panel 860 (unknown) (no date) (unknown) [facility]) Result panel 861 (unknown) (no date) (unknown) [facility]) Result panel 862 (unknown) (no date) (unknown) [facility]) Result panel 863 (unknown) (no date) (unknown) [facility]) Result panel 864 (unknown) (no date) (unknown) [facility]) Result panel 865 (unknown) (no date) (unknown) [facility]) Result panel 866 (unknown) (no date) (unknown) [facility]) Result panel 867 (unknown) (no date) (unknown) [facility]) Result panel 868 (unknown) (no date) (unknown) [facility]) Result panel 869 (unknown) (no date) (unknown) [facility]) Result panel 870 (unknown) (no date) (unknown) [facility]) Result panel 871 (unknown) (no date) (unknown) [facility]) Result panel 872 (unknown) (no date) (unknown) [facility]) Result panel 873 (unknown) (no date) (unknown) [facility]) Result panel 874 (unknown) (no date) (unknown) [facility]) Result panel 875 (unknown) (no date) (unknown) [facility]) Result panel 876 (unknown) (no date) (unknown) [facility]) Result panel 877 (unknown) (no date) (unknown) [facility]) Result panel 878 (unknown) (no date) (unknown) [facility]) Result panel 879 (unknown) (no date) (unknown) [facility]) Result panel 880 (unknown) (no date) (unknown) [facility]) Result panel 881 (unknown) (no date) (unknown) [facility]) Result panel 882 (unknown) (no date) (unknown) [facility]) Result panel 883 (unknown) (no date) (unknown) [facility]) Result panel 884 (unknown) (no date) (unknown) [facility]) Result panel 885 (unknown) (no date) (unknown) [facility]) Result panel 886 (unknown) (no date) (unknown) [facility]) Result panel 887 (unknown) (no date) (unknown) [facility]) Result panel 888 (unknown) (no date) (unknown) [facility]) Result panel 889 (unknown) (no date) (unknown) [facility]) Result panel 890 (unknown) (no date) (unknown) [facility]) Result panel 891 (unknown) (no date) (unknown) [facility]) Result panel 892 (unknown) (no date) (unknown) [facility]) Result panel 893 (unknown) (no date) (unknown) [facility]) Result panel 894 (unknown) (no date) (unknown) [facility]) Result panel 895 (unknown) (no date) (unknown) [facility]) Result panel 896 (unknown) (no date) (unknown) [facility]) Result panel 897 (unknown) (no date) (unknown) [facility]) Result panel 898 (unknown) (no date) (unknown) [facility]) Result panel 899 (unknown) (no date) (unknown) [facility]) Result panel 900 (unknown) (no date) (unknown) [facility]) Result panel 901 (unknown) (no date) (unknown) [facility]) Result panel 902 (unknown) (no date) (unknown) [facility]) Result panel 903 (unknown) (no date) (unknown) [facility]) Result panel 904 (unknown) (no date) (unknown) [facility]) Result panel 905 (unknown) (no date) (unknown) [facility]) Result panel 906 (unknown) (no date) (unknown) [facility]) Result panel 907 (unknown) (no date) (unknown) [facility]) Result panel 908 (unknown) (no date) (unknown) [facility]) Result panel 909 (unknown) (no date) (unknown) (unknown) (no value) (units (un known) unknown) (unknown) (no date) (unknown) (unknown) [id number] (units ([facility] own) unknown) (unknown) (no date) (unknown) (unknown) 08/20/22 (units ([facility] own) unknown) (unknown) (no date) (unknown) (unknown) [address]units ([address] nown) [address] unknown) (unknown) (no date) (unknown) (unknown) Accession (units ([facility] nown) Number: unknown) [id number] (unknown) (no date) (unknown) (unknown) Age/Sex: 76 / (units (unknown) M Date of unknown) Service: (unknown) (no date) (unknown) (unknown) [place], [place] (units (unknown) [id number] unknown) (unknown) (no date) (unknown) (unknown) Approved by: (units ( unknown) sukhdeep Hernandez M.D. on 08/20/2022 at 18:11 (unknown) (no date) (unknown) (unknown) Bones and (units (unk nown) chest wall: No unknown) suspicious bony lesions. Overlying soft tissues (unknown) (no date) (unknown) (unknown) [facility], [facility], XR CHEST 1V, 06/30/2022, 14:11. (unknown) (no date) (unknown) (unknown) : (units (unkn own) 1945 unknown) Acct:[id number] (unknown) (no date) (unknown) (unknown) Dictated by: (units ( unknown) sukhdeep Hernandez M.D. on 08/20/2022 at 18:10 (unknown) (no date) (unknown) (unknown) FINDINGS: (units ([facility] nown) unknown) (unknown) (no date) (unknown) (unknown) IMPRESSION: No (units (unknown) acute process. unknown) (unknown) (no date) (unknown) (unknown) INDICATIONS: (units ( unknown) chest pain unknown) (unknown) (no date) (unknown) (unknown) [facility] (unknown) (no date) (unknown) (unknown) Loc: ED (units (unkn own) unknown) (unknown) (no date) (unknown) (unknown) Lungs and (units (unk nown) pleura: Lungs unknown) are clear. No pleural effusions or pneumothorax. (unknown) (no date) (unknown) (unknown) Mediastinum: (units ( unknown) Mediastinal unknown) contours appear normal. Heart size is normal. (unknown) (no date) (unknown) (unknown) Ordering (units (unkn own) Provider: unknown) Lizandro Caicedo P.A-C (unknown) (no date) (unknown) (unknown) PROCEDURE: XR (units (unknown) CHEST 1V unknown) (unknown) (no date) (unknown) (unknown) Patient: (units (unkn own) Eleazar Charles unknown) MR#: [id number] (unknown) (no date) (unknown) (unknown) Procedure: XR (units (unknown) chest 1V unknown) (unknown) (no date) (unknown) (unknown) Signed (units (un[facility] own) unknown) (unknown) (no date) (unknown) (unknown) Surgical (units (unkn own) changes and unknown) devices: None. (unknown) (no date) (unknown) (unknown) TECHNIQUE: One (units (unknown) view of the unknown) chest was acquired. (unknown) (no date) (unknown) (unknown) XRay Report (units (u nknown) unknown) (unknown) (no date) (unknown) (unknown) appear (units (unkn own) unknown) (unknown) (no date) (unknown) (unknown) unremarkable. (units (unknown) unknown) Result panel 910 (unknown) (no (unknown) (unknown) (no value) (units (unk nown) date) unknown) (unknown) (no (unknown) (unknown) [id number] (units (unkno wn) date) unknown) (unknown) (no (unknown) (unknown) 08/20/22 (units (unkno wn) date) unknown) (unknown) (no (unknown) (unknown) [address] [place] [address] (units (unknown) date) unknown) (unknown) (no (unknown) (unknown) Accession Number: (units (unknown) date) [id number] unknown) (unknown) (no (unknown) (unknown) Age/Sex: 76 / M (units (unknown) date) Date of Service: unknown) (unknown) (no (unknown) (unknown) [place], [place] (units ( unknown) date) [id number] unknown) (unknown) (no (unknown) (unknown) Approved by: (units (u nknown) date) Riley Prakash M.D. unknown) on 08/20/2022 at 18:26 (unknown) (no (unknown) (unknown) Brain: No (units (unkn own) date) intracranial unknown) bleeds or masses. There is cerebral volume loss for (unknown) (no (unknown) (unknown) COMPARISON: (units (un known) date) [facility], unknown) CT, CT HEAD/BRAIN WO [facility], 03/31/2021, 17:22. (unknown) (no (unknown) (unknown) CSF spaces: Basal (units (unknown) date) cisterns are unknown) patent. No extra-axial fluid collections. The (unknown) (no (unknown) (unknown) CT Scan Report (units (unknown) date) unknown) (unknown) (no (unknown) (unknown) : 1945 (units (unknown) date) Acct:[id number] unknown) (unknown) (no (unknown) (unknown) Dictated by: (units (u nknown) date) Riley Prakash M.D. unknown) on 08/20/2022 at 18:25 (unknown) (no (unknown) (unknown) FINDINGS: (units (unkn own) date) unknown) (unknown) (no (unknown) (unknown) IMPRESSION: No (units (unknown) date) acute intracranial unknown) abnormality. (unknown) (no (unknown) (unknown) INDICATIONS: fall (units (unknown) date) unknown) (unknown) (no (unknown) (unknown) Image quality: (units (unknown) date) Excellent. unknown) (unknown) (no (unknown) (unknown) [facility] (units (unknown) date) unknown) (unknown) (no (unknown) (unknown) Loc: ED (units (unkno wn) date) unknown) (unknown) (no (unknown) (unknown) Noncontrast 4.5 (units (unknown) date) mm thick angled unknown) axial sections acquired from the foramen magnum (unknown) (no (unknown) (unknown) Ordering (units (unkno wn) date) Provider: unknown) Lizandro Caicedo P.A-C (unknown) (no (unknown) (unknown) PROCEDURE: CT (units ( unknown) date) HEAD/BRAIN WO CON unknown) (unknown) (no (unknown) (unknown) Patient: (units (unkno wn) date) Eleazar Charles Chandrika unknown) MR#: [id number] (unknown) (no (unknown) (unknown) Procedure: CT (units ( unknown) date) head/brain wo con unknown) (unknown) (no (unknown) (unknown) Signed (units (unkno wn) date) unknown) (unknown) (no (unknown) (unknown) Sinuses: (units (unkno wn) date) Visualized sinuses unknown) and mastoids are clear. (unknown) (no (unknown) (unknown) Skull and face: (units (unknown) date) Calvarium and unknown) visualized facial bones appear intact, without (unknown) (no (unknown) (unknown) TECHNIQUE: (units (unk nown) date) unknown) (unknown) (no (unknown) (unknown) age, with (units (unkn own) date) unknown) (unknown) (no (unknown) (unknown) artery (units (unkno wn) date) atherosclerosis. unknown) (unknown) (no (unknown) (unknown) carotid (units (unkno wn) date) unknown) (unknown) (no (unknown) (unknown) deep white (units (unk nown) date) unknown) (unknown) (no (unknown) (unknown) following (units (unkn own) date) unknown) (unknown) (no (unknown) (unknown) lesions. (units (unkno wn) date) unknown) (unknown) (no (unknown) (unknown) matter chronic (units (unknown) date) small vessel unknown) ischemic changes. There is intracranial internal (unknown) (no (unknown) (unknown) patient (units (unkno wn) date) unknown) (unknown) (no (unknown) (unknown) resultant (units (unkn own) date) ventricular and unknown) sulcal prominence. There are periventricular and (unknown) (no (unknown) (unknown) size. (units (unkno wn) date) unknown) (unknown) (no (unknown) (unknown) suspicious (units (unk nown) date) unknown) (unknown) (no (unknown) (unknown) to the (units (unkno wn) date) unknown) (unknown) (no (unknown) (unknown) ventricles are (units (unknown) date) symmetric in size unknown) and shape. (unknown) (no (unknown) (unknown) vertex, with (units (u nknown) date) coronal and unknown) sagittal reformats. For radiation dose reduction, the (unknown) (no (unknown) (unknown) was used: (units (unkn own) date) automated exposure unknown) control, adjustment of mA and/or kV according to Result panel 911 (unknown) (no (unknown) (unknown) (no value) (units (unk nown) date) unknown) (unknown) (no (unknown) (unknown) 08/20/22 17:35 (units (unknown) date) unknown) (unknown) (no (unknown) (unknown) 08/20/22 17:36 (units (unknown) date) unknown) (unknown) (no (unknown) (unknown) 08/20/22 17:49 (units (unknown) date) unknown) (unknown) (no (unknown) (unknown) 08/20/22 (units (unkno wn) date) unknown) (unknown) (no (unknown) (unknown) [id number] (units (unkno wn) date) unknown) (unknown) (no (unknown) (unknown) 1.1 (units (unkno wn) date) unknown) (unknown) (no (unknown) (unknown) 10 mg PO QAM (units (u nknown) date) Qty: 45 1RF unknown) (unknown) (no (unknown) (unknown) 12.7 seconds (unkno wn) date) (unknown) (no (unknown) (unknown) 17:29 08/20/22 (units (unknown) date) unknown) (unknown) (no (unknown) (unknown) 17:32 08/20/22 (units (unknown) date) unknown) (unknown) (no (unknown) (unknown) 17:55 08/20/22 (units (unknown) date) unknown) (unknown) (no (unknown) (unknown) 17:55 (units (unkno wn) date) unknown) (unknown) (no (unknown) (unknown) 18:00 08/20/22 (units (unknown) date) unknown) (unknown) (no (unknown) (unknown) 18:00 (units (unkno wn) date) unknown) (unknown) (no (unknown) (unknown) 25 mg PO DAILY (units (unknown) date) Qty: 30 0RF unknown) (unknown) (no (unknown) (unknown) 27 seconds (unkno wn) date) (unknown) (no (unknown) (unknown) 27 seconds (unkno wn) date) (unknown) (no (unknown) (unknown) Age/Sex: 76 / M (units (unknown) date) unknown) (unknown) (no (unknown) (unknown) Alcohol abuse (units ( unknown) date) unknown) (unknown) (no (unknown) (unknown) Alcohol type: (units ( unknown) date) beer, wine and unknown) hard liquor (unknown) (no (unknown) (unknown) Alcohol (units (unkno wn) date) withdrawal unknown) delirium (unknown) (no (unknown) (unknown) Alcohol (units (unkno wn) date) withdrawal unknown) (unknown) (no (unknown) (unknown) Allergies (units (unkn own) date) unknown) (unknown) (no (unknown) (unknown) Allergy/AdvReac (units (unknown) date) Type Severity unknown) Reaction Status Date / Time (unknown) (no (unknown) (unknown) Anemia, chronic (units (unknown) date) disease unknown) (unknown) (no (unknown) (unknown) Aspirin (Aspirin (units (unknown) date) 81 Mg Chew Tab) unknown) 324 mg PO NOW ONE (unknown) (no (unknown) (unknown) Atrial (units (unkno wn) date) fibrillation unknown) (unknown) (no (unknown) (unknown) BPH w urinary (units ( unknown) date) obs/LUTS unknown) (unknown) (no (unknown) (unknown) Blood Pressure (units (unknown) date) 110/79 126/82 unknown) (unknown) (no (unknown) (unknown) Blood Pressure (units (unknown) date) 114/70 08/20/22 unknown) 17:29 (unknown) (no (unknown) (unknown) Blood Pressure (units (unknown) date) 114/70 114/ unknown) (unknown) (no (unknown) (unknown) CT head/brain wo (units (unknown) date) con Stat unknown) (unknown) (no (unknown) (unknown) Cardiomyopathy (units (unknown) date) unknown) (unknown) (no (unknown) (unknown) Chief Complaint: (units (unknown) date) Arrhythmia/Palpit unknown) ations (unknown) (no (unknown) (unknown) Complete Blood (units (unknown) date) Count AUTO DIFF unknown) Stat (unknown) (no (unknown) (unknown) Comprehensive (units ( unknown) date) Metabolic Panel unknown) Stat (unknown) (no (unknown) (unknown) Course (units (unkno wn) date) unknown) (unknown) (no (unknown) (unknown) : 1945 (units (unknown) date) Acct:[id number] unknown) (unknown) (no (unknown) (unknown) Date of Service: (units (unknown) date) 08/20/22 unknown) (unknown) (no (unknown) (unknown) Departure (units (unkn own) date) unknown) (unknown) (no (unknown) (unknown) Discharge Plan (units (unknown) date) unknown) (unknown) (no (unknown) (unknown) Discontinued (units (u nknown) date) Medications unknown) (unknown) (no (unknown) (unknown) Documented By: (units (unknown) date) MLM unknown) (unknown) (no (unknown) (unknown) ED Orders (units (unkn own) date) unknown) (unknown) (no (unknown) (unknown) EKG-12 Lead Stat (units (unknown) date) unknown) (unknown) (no (unknown) (unknown) ER Physician: (units ( unknown) date) Lizandro Caicedo P.A-C unknown) (unknown) (no (unknown) (unknown) Emergency Report (units (unknown) date) unknown) (unknown) (no (unknown) (unknown) Ethanol (ETOH) (units (unknown) date) Stat unknown) (unknown) (no (unknown) (unknown) Exam (units (unkno wn) date) unknown) (unknown) (no (unknown) (unknown) Family History (units (unknown) date) (Reviewed unknown) 12/25/21 @ 16:19 by Pop Delgado PA-C) (unknown) (no (unknown) (unknown) Former smoker (units ( unknown) date) unknown) (unknown) (no (unknown) (unknown) Jeannette Chaudhary, (units (unknown) date) MD [Primary Care unknown) Provider] (unknown) (no (unknown) (unknown) General (units (unkno wn) date) unknown) (unknown) (no (unknown) (unknown) Gout (units (unkno wn) date) unknown) (unknown) (no (unknown) (unknown) HPI - (units (unkno wn) date) Arrhythmia/Palpit unknown) ations (unknown) (no (unknown) (unknown) HTN (units (unkno wn) date) (hypertension) unknown) (unknown) (no (unknown) (unknown) 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 (unknown) (no (unknown) (unknown) History of (units (unk nown) date) percutaneous unknown) endoscopic gastrostomy () (unknown) (no (unknown) (unknown) Initial Vital (units ( unknown) date) Signs unknown) (unknown) (no (unknown) (unknown) Initial Vital (units ( unknown) date) Signs: unknown) (unknown) (no (unknown) (unknown) [facility] (units (unknown) date) [address] unknown) [place] [address] (unknown) (no (unknown) (unknown) Lab Data (units (unkno wn) date) unknown) (unknown) (no (unknown) (unknown) Label Comments: (units (unknown) date) unknown) (unknown) (no (unknown) (unknown) Last Admin: (units (un known) date) 08/20/22 18:16 unknown) Dose: 324 mg (unknown) (no (unknown) (unknown) Lipase Stat (units (un known) date) unknown) (unknown) (no (unknown) (unknown) MDM - (units (unkno wn) date) Arrhythmia/Palpit unknown) ations (unknown) (no (unknown) (unknown) Magnesium Stat (units (unknown) date) unknown) (unknown) (no (unknown) (unknown) Medical History (units (unknown) date) (Reviewed unknown) 12/25/21 @ 16:19 by Pop Delgado PA-C) (unknown) (no (unknown) (unknown) Medication (units (unk nown) date) Instructions unknown) Recorded (unknown) (no (unknown) (unknown) Mixed (units (unkno wn) date) hyperlipidemia unknown) (unknown) (no (unknown) (unknown) Mode of arrival: (units (unknown) date) Wheelchair unknown) (unknown) (no (unknown) (unknown) 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 unknown) (unknown) (no (unknown) (unknown) No Action (units (unkn own) date) unknown) (unknown) (no (unknown) (unknown) Ordered: (units (unkno wn) date) unknown) (unknown) (no (unknown) (unknown) Orders (units (unkno wn) date) unknown) (unknown) (no (unknown) (unknown) Oxygen Delivery (units (unknown) date) Method 08/20/22 unknown) 17:29 (unknown) (no (unknown) (unknown) Oxygen Delivery (units (unknown) date) Method Room Air unknown) Room Air (unknown) (no (unknown) (unknown) Oxygen Delivery (units (unknown) date) Method Room Air unknown) (unknown) (no (unknown) (unknown) Partial (units (unkno wn) date) Thromboplastin unknown) Time Stat (unknown) (no (unknown) (unknown) Patient History (units (unknown) date) unknown) (unknown) (no (unknown) (unknown) Patient: (units (unkno wn) date) Eleazar Charles unknown) MR#: [id number] (unknown) (no (unknown) (unknown) Prescriptions: (units (unknown) date) unknown) (unknown) (no (unknown) (unknown) Previous Rx's (units ( unknown) date) unknown) (unknown) (no (unknown) (unknown) Prothrombin Time (units (unknown) date) INR Stat unknown) (unknown) (no (unknown) (unknown) Pt reports (units (unk nown) date) taking every unknown) other day, at best. Also stated' only takes 2 pills, (unknown) (no (unknown) (unknown) Pulse Oximetry (units (unknown) date) 93 08/20/22 17:29 unknown) (unknown) (no (unknown) (unknown) Pulse Oximetry (units (unknown) date) 93 96 unknown) (unknown) (no (unknown) (unknown) Pulse Oximetry (units (unknown) date) 98 unknown) (unknown) (no (unknown) (unknown) Pulse Rate 88 (units ( unknown) date) unknown) (unknown) (no (unknown) (unknown) Pulse Rate 96 H (units (unknown) date) 08/20/22 17:29 unknown) (unknown) (no (unknown) (unknown) Pulse Rate 96 H (units (unknown) date) 88 unknown) (unknown) (no (unknown) (unknown) Referrals: (units (unk nown) date) unknown) (unknown) (no (unknown) (unknown) Related Data (units (u nknown) date) unknown) (unknown) (no (unknown) (unknown) Respiratory Rate (units (unknown) date) 20 08/20/22 17:29 unknown) (unknown) (no (unknown) (unknown) Respiratory Rate (units (unknown) date) 20 21 unknown) (unknown) (no (unknown) (unknown) Respiratory Rate (units (unknown) date) 21 unknown) (unknown) (no (unknown) (unknown) Signed By: (units (unk nown) date) unknown) (unknown) (no (unknown) (unknown) Sister (units (unkno wn) date) Rheumatoid unknown) arthritis (unknown) (no (unknown) (unknown) Smoking Status: (units (unknown) date) Former smoker unknown) (unknown) (no (unknown) (unknown) Social History (units (unknown) date) (Reviewed unknown) 12/25/21 @ 16:19 by Pop Delgado PA-C) (unknown) (no (unknown) (unknown) Source: patient (units (unknown) date) unknown) (unknown) (no (unknown) (unknown) Stated (units (unkno wn) date) Complaint: unknown) a-fib/passed out this morning (unknown) (no (unknown) (unknown) Stop: 08/20/22 (units (unknown) date) 17:37 unknown) (unknown) (no (unknown) (unknown) Substance Use (units ( unknown) date) Type: does not unknown) use (unknown) (no (unknown) (unknown) Surgical History (units (unknown) date) (Reviewed unknown) 12/25/21 @ 16:19 by Pop Delgado PA-C) (unknown) (no (unknown) (unknown) Temperature 98.6 (units (unknown) date) F 08/20/22 17:29 unknown) (unknown) (no (unknown) (unknown) Temperature 98.6 (units (unknown) date) F unknown) (unknown) (no (unknown) (unknown) Temperature (units (un known) date) unknown) (unknown) (no (unknown) (unknown) Time Seen by (units (u nknown) date) Provider: unknown) 08/20/22 17:36 (unknown) (no (unknown) (unknown) Troponin + CK (units ( unknown) date) Cardiac Panel unknown) Stat (unknown) (no (unknown) (unknown) Vital Signs - 8 (units (unknown) date) hr unknown) (unknown) (no (unknown) (unknown) Vital Signs (units (un known) date) unknown) (unknown) (no (unknown) (unknown) Vital signs: (units (u nknown) date) unknown) (unknown) (no (unknown) (unknown) XR chest 1V Stat (units (unknown) date) unknown) (unknown) (no (unknown) (unknown) [Embedded Image (units (unknown) date) Not Available] unknown) (unknown) (no (unknown) (unknown) alcohol intake (units (unknown) date) frequency: 3 or unknown) more drinks per day (unknown) (no (unknown) (unknown) alcohol intake: (units (unknown) date) current unknown) (unknown) (no (unknown) (unknown) amoxicillin (units (un known) date) [AMOXICILLIN] unknown) Allergy Severe SWOLLEN JAW Verified 08/20/22 17:41 (unknown) (no (unknown) (unknown) clindamycin (units (un known) date) [CLINDAMYCIN] unknown) AdvReac Severe C-DIFF Verified 08/20/22 17:41 (unknown) (no (unknown) (unknown) furosemide 20 mg (units (unknown) date) tablet 10 mg PO unknown) QAM #45 tabs 12/15/21 (unknown) (no (unknown) (unknown) furosemide 20 mg (units (unknown) date) tablet unknown) (unknown) (no (unknown) (unknown) household (units (unkn own) date) members: none unknown) (unknown) (no (unknown) (unknown) marital status: (units (unknown) date) unknown) (unknown) (no (unknown) (unknown) metoprolol (units (unk nown) date) succinate 25 mg unknown) 25 mg PO DAILY #30 tabs 10/30/21 (unknown) (no (unknown) (unknown) metoprolol (units (unk nown) date) succinate 25 mg unknown) tablet extended release 24 hr (unknown) (no (unknown) (unknown) occupational (units (u nknown) date) status: unknown) previously employed (unknown) (no (unknown) (unknown) since it RX'd'. (units (unknown) date) unknown) (unknown) (no (unknown) (unknown) substance use (units ( unknown) date) type: does not unknown) use (unknown) (no (unknown) (unknown) tablet,extended (units (unknown) date) release 24 hr unknown) Result panel 912 (unknown) (no date) (unknown) (unknown) > 60 ml/min (unkn own) (unknown) (no date) (unknown) (unknown) > 60 ml/min (unkn own) (unknown) (no date) (unknown) (unknown) < 10 mg/dl (unkn own) (unknown) (no date) (unknown) (unknown) < 10 mg/dl (unkn own) (unknown) (no date) (unknown) (unknown) 1.05 mg/dl (unkn own) (unknown) (no date) (unknown) (unknown) 1.2 mg/dl (unkn own) (unknown) (no date) (unknown) (unknown) 1.3 mg/dl (unkn own) (unknown) (no date) (unknown) (unknown) 1.6 (units unknown) (unknown) (unknown) (no date) (unknown) (unknown) 100 mg/dl (unkn own) (unknown) (no date) (unknown) (unknown) 100 mg/dl (unkn own) (unknown) (no date) (unknown) (unknown) 127 u/l (unkn own) (unknown) (no date) (unknown) (unknown) 130 mmol/l (unkn own) (unknown) (no date) (unknown) (unknown) 144 u/l (unkn own) (unknown) (no date) (unknown) (unknown) 15.2 (units unknown) (unknown) (unknown) (no date) (unknown) (unknown) 16 mg/dl (unkn own) (unknown) (no date) (unknown) (unknown) 2.5 g/dl (unkn own) (unknown) (no date) (unknown) (unknown) 24 mmol/l (unkn own) (unknown) (no date) (unknown) (unknown) 4.1 g/dl (unkn own) (unknown) (no date) (unknown) (unknown) 4.8 mmol/l (unkn own) (unknown) (no date) (unknown) (unknown) 40 iu/l (unkn own) (unknown) (no date) (unknown) (unknown) 57 iu/l (unkn own) (unknown) (no date) (unknown) (unknown) 6.6 g/dl (unkn own) (unknown) (no date) (unknown) (unknown) 67 u/l (unkn own) (unknown) (no date) (unknown) (unknown) 8.7 mg/dl (unkn own) (unknown) (no date) (unknown) (unknown) 97 mmol/l (unkn own) Result panel 913 (unknown) (no date) (unknown) (unknown) > 60 ml/min (unkn own) (unknown) (no date) (unknown) (unknown) > 60 ml/min (unkn own) (unknown) (no date) (unknown) (unknown) 0.013 ng/ml (unkn own) (unknown) (no date) (unknown) (unknown) 0.013 ng/ml (unkn own) (unknown) (no date) (unknown) (unknown) 1.05 mg/dl (unkn own) (unknown) (no date) (unknown) (unknown) 1.2 mg/dl (unkn own) (unknown) (no date) (unknown) (unknown) 1.3 mg/dl (unkn own) (unknown) (no date) (unknown) (unknown) 1.6 (units unknown) (unknown) (unknown) (no date) (unknown) (unknown) 100 mg/dl (unkn own) (unknown) (no date) (unknown) (unknown) 100 mg/dl (unkn own) (unknown) (no date) (unknown) (unknown) 127 u/l (unkn own) (unknown) (no date) (unknown) (unknown) 130 mmol/l (unkn own) (unknown) (no date) (unknown) (unknown) 144 u/l (unkn own) (unknown) (no date) (unknown) (unknown) 15.2 (units unknown) (unknown) (unknown) (no date) (unknown) (unknown) 16 mg/dl (unkn own) (unknown) (no date) (unknown) (unknown) 2.5 g/dl (unkn own) (unknown) (no date) (unknown) (unknown) 24 mmol/l (unkn own) (unknown) (no date) (unknown) (unknown) 4.1 g/dl (unkn own) (unknown) (no date) (unknown) (unknown) 4.8 mmol/l (unkn own) (unknown) (no date) (unknown) (unknown) 40 iu/l (unkn own) (unknown) (no date) (unknown) (unknown) 57 iu/l (unkn own) (unknown) (no date) (unknown) (unknown) 6.6 g/dl (unkn own) (unknown) (no date) (unknown) (unknown) 67 u/l (unkn own) (unknown) (no date) (unknown) (unknown) 8.7 mg/dl (unkn own) (unknown) (no date) (unknown) (unknown) 97 mmol/l (unkn own) Result panel 914 (unknown) (no (unknown) (unknown) (no value) (units (unk nown) date) unknown) (unknown) (no (unknown) (unknown) 08/20/22 17:35 (units (unknown) date) unknown) (unknown) (no (unknown) (unknown) 08/20/22 17:36 (units (unknown) date) unknown) (unknown) (no (unknown) (unknown) 08/20/22 17:49 (units (unknown) date) unknown) (unknown) (no (unknown) (unknown) 08/20/22 (units (unkno wn) date) unknown) (unknown) (no (unknown) (unknown) [id number] (units (unkno wn) date) unknown) (unknown) (no (unknown) (unknown) 10 mg PO QAM (units (u nknown) date) Qty: 45 1RF unknown) (unknown) (no (unknown) (unknown) 17:29 08/20/22 (units (unknown) date) unknown) (unknown) (no (unknown) (unknown) 17:32 08/20/22 (units (unknown) date) unknown) (unknown) (no (unknown) (unknown) 17:55 08/20/22 (units (unknown) date) unknown) (unknown) (no (unknown) (unknown) 17:55 (units (unkno wn) date) unknown) (unknown) (no (unknown) (unknown) 18:00 08/20/22 (units (unknown) date) unknown) (unknown) (no (unknown) (unknown) 18:00 (units (unkno wn) date) unknown) (unknown) (no (unknown) (unknown) 25 mg PO DAILY (units (unknown) date) Qty: 30 0RF unknown) (unknown) (no (unknown) (unknown) Age/Sex: 76 / M (units (unknown) date) unknown) (unknown) (no (unknown) (unknown) Alcohol abuse (units ( unknown) date) unknown) (unknown) (no (unknown) (unknown) Alcohol type: (units ( unknown) date) beer, wine and unknown) hard liquor (unknown) (no (unknown) (unknown) Alcohol (units (unkno wn) date) withdrawal unknown) delirium (unknown) (no (unknown) (unknown) Alcohol (units (unkno wn) date) withdrawal unknown) (unknown) (no (unknown) (unknown) Allergies (units (unkn own) date) unknown) (unknown) (no (unknown) (unknown) Allergy/AdvReac (units (unknown) date) Type Severity unknown) Reaction Status Date / Time (unknown) (no (unknown) (unknown) Anemia, chronic (units (unknown) date) disease unknown) (unknown) (no (unknown) (unknown) Aspirin (Aspirin (units (unknown) date) 81 Mg Chew Tab) unknown) 324 mg PO NOW ONE (unknown) (no (unknown) (unknown) Atrial (units (unkno wn) date) fibrillation unknown) (unknown) (no (unknown) (unknown) BPH w urinary (units ( unknown) date) obs/LUTS unknown) (unknown) (no (unknown) (unknown) Blood Pressure (units (unknown) date) 110/79 126/82 unknown) (unknown) (no (unknown) (unknown) Blood Pressure (units (unknown) date) 114/70 08/20/22 unknown) 17:29 (unknown) (no (unknown) (unknown) Blood Pressure (units (unknown) date) 114 unknown) (unknown) (no (unknown) (unknown) CT head/brain wo (units (unknown) date) con Stat unknown) (unknown) (no (unknown) (unknown) Cardiomyopathy (units (unknown) date) unknown) (unknown) (no (unknown) (unknown) Chief Complaint: (units (unknown) date) Arrhythmia/Palpit unknown) ations (unknown) (no (unknown) (unknown) Complete Blood (units (unknown) date) Count AUTO DIFF unknown) Stat (unknown) (no (unknown) (unknown) Comprehensive (units ( unknown) date) Metabolic Panel unknown) Stat (unknown) (no (unknown) (unknown) Course (units (unkno wn) date) unknown) (unknown) (no (unknown) (unknown) : 1945 (units (unknown) date) Acct:[id number] unknown) (unknown) (no (unknown) (unknown) Date of Service: (units (unknown) date) 08/20/22 unknown) (unknown) (no (unknown) (unknown) Departure (units (unkn own) date) unknown) (unknown) (no (unknown) (unknown) Discharge Plan (units (unknown) date) unknown) (unknown) (no (unknown) (unknown) Discontinued (units (u nknown) date) Medications unknown) (unknown) (no (unknown) (unknown) Documented By: (units (unknown) date) MLM unknown) (unknown) (no (unknown) (unknown) ED Orders (units (unkn own) date) unknown) (unknown) (no (unknown) (unknown) EKG-12 Lead Stat (units (unknown) date) unknown) (unknown) (no (unknown) (unknown) ER Physician: (units ( unknown) date) Lizandro Caicedo P.A-C unknown) (unknown) (no (unknown) (unknown) Emergency Report (units (unknown) date) unknown) (unknown) (no (unknown) (unknown) Ethanol (ETOH) (units (unknown) date) Stat unknown) (unknown) (no (unknown) (unknown) Exam (units (unkno wn) date) unknown) (unknown) (no (unknown) (unknown) Family History (units (unknown) date) (Reviewed unknown) 12/25/21 @ 16:19 by Pop Delgado PA-C) (unknown) (no (unknown) (unknown) Former smoker (units ( unknown) date) unknown) (unknown) (no (unknown) (unknown) Jeannette Chaudhary, (units (unknown) date) MD [Primary Care unknown) Provider] (unknown) (no (unknown) (unknown) General (units (unkno wn) date) unknown) (unknown) (no (unknown) (unknown) Gout (units (unkno wn) date) unknown) (unknown) (no (unknown) (unknown) HPI - (units (unkno wn) date) Arrhythmia/Palpit unknown) ations (unknown) (no (unknown) (unknown) HTN (units (unkno wn) date) (hypertension) unknown) (unknown) (no (unknown) (unknown) 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 (unknown) (no (unknown) (unknown) History of (units (unk nown) date) percutaneous unknown) endoscopic gastrostomy () (unknown) (no (unknown) (unknown) Initial Vital (units ( unknown) date) Signs unknown) (unknown) (no (unknown) (unknown) Initial Vital (units ( unknown) date) Signs: unknown) (unknown) (no (unknown) (unknown) [facility] (units (unknown) date) [address]) [place] [address] (unknown) (no (unknown) (unknown) Lab Data (units (unkno wn) date) unknown) (unknown) (no (unknown) (unknown) Label Comments: (units (unknown) date) unknown) (unknown) (no (unknown) (unknown) Last Admin: (units (un known) date) 08/20/22 18:16 unknown) Dose: 324 mg (unknown) (no (unknown) (unknown) Lipase Stat (units (un known) date) unknown) (unknown) (no (unknown) (unknown) MDM - (units (unkno wn) date) Arrhythmia/Palpit unknown) ations (unknown) (no (unknown) (unknown) Magnesium Stat (units (unknown) date) unknown) (unknown) (no (unknown) (unknown) Medical History (units (unknown) date) (Reviewed unknown) 12/25/21 @ 16:19 by Pop Delgado PA-C) (unknown) (no (unknown) (unknown) Medication (units (unk nown) date) Instructions unknown) Recorded (unknown) (no (unknown) (unknown) Mixed (units (unkno wn) date) hyperlipidemia unknown) (unknown) (no (unknown) (unknown) Mode of arrival: (units (unknown) date) Wheelchair unknown) (unknown) (no (unknown) (unknown) 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 unknown) (unknown) (no (unknown) (unknown) No Action (units (unkn own) date) unknown) (unknown) (no (unknown) (unknown) Ordered: (units (unkno wn) date) unknown) (unknown) (no (unknown) (unknown) Orders (units (unkno wn) date) unknown) (unknown) (no (unknown) (unknown) Oxygen Delivery (units (unknown) date) Method 08/20/22 unknown) 17:29 (unknown) (no (unknown) (unknown) Oxygen Delivery (units (unknown) date) Method Room Air unknown) Room Air (unknown) (no (unknown) (unknown) Oxygen Delivery (units (unknown) date) Method Room Air unknown) (unknown) (no (unknown) (unknown) Partial (units (unkno wn) date) Thromboplastin unknown) Time Stat (unknown) (no (unknown) (unknown) Patient History (units (unknown) date) unknown) (unknown) (no (unknown) (unknown) Patient: (units (unkno wn) date) Eleazar Charles unknown) MR#: [id number] (unknown) (no (unknown) (unknown) Prescriptions: (units (unknown) date) unknown) (unknown) (no (unknown) (unknown) Previous Rx's (units ( unknown) date) unknown) (unknown) (no (unknown) (unknown) Prothrombin Time (units (unknown) date) INR Stat unknown) (unknown) (no (unknown) (unknown) Pt reports (units (unk nown) date) taking every unknown) other day, at best. Also stated' only takes 2 pills, (unknown) (no (unknown) (unknown) Pulse Oximetry (units (unknown) date) 93 08/20/22 17:29 unknown) (unknown) (no (unknown) (unknown) Pulse Oximetry (units (unknown) date) 93 96 unknown) (unknown) (no (unknown) (unknown) Pulse Oximetry (units (unknown) date) 98 unknown) (unknown) (no (unknown) (unknown) Pulse Rate 88 (units ( unknown) date) unknown) (unknown) (no (unknown) (unknown) Pulse Rate 96 H (units (unknown) date) 08/20/22 17:29 unknown) (unknown) (no (unknown) (unknown) Pulse Rate 96 H (units (unknown) date) 88 unknown) (unknown) (no (unknown) (unknown) Referrals: (units (unk nown) date) unknown) (unknown) (no (unknown) (unknown) Related Data (units (u nknown) date) unknown) (unknown) (no (unknown) (unknown) Respiratory Rate (units (unknown) date) 20 08/20/22 17:29 unknown) (unknown) (no (unknown) (unknown) Respiratory Rate (units (unknown) date) 20 21 unknown) (unknown) (no (unknown) (unknown) Respiratory Rate (units (unknown) date) 21 unknown) (unknown) (no (unknown) (unknown) Signed By: (units (unk nown) date) unknown) (unknown) (no (unknown) (unknown) Sister (units (unkno wn) date) Rheumatoid unknown) arthritis (unknown) (no (unknown) (unknown) Smoking Status: (units (unknown) date) Former smoker unknown) (unknown) (no (unknown) (unknown) Social History (units (unknown) date) (Reviewed unknown) 12/25/21 @ 16:19 by Pop Delgado PA-C) (unknown) (no (unknown) (unknown) Source: patient (units (unknown) date) unknown) (unknown) (no (unknown) (unknown) Stated (units (unkno wn) date) Complaint: unknown) a-fib/passed out this morning (unknown) (no (unknown) (unknown) Stop: 08/20/22 (units (unknown) date) 17:37 unknown) (unknown) (no (unknown) (unknown) Substance Use (units ( unknown) date) Type: does not unknown) use (unknown) (no (unknown) (unknown) Surgical History (units (unknown) date) (Reviewed unknown) 12/25/21 @ 16:19 by Pop Delgado PA-C) (unknown) (no (unknown) (unknown) Temperature 98.6 (units (unknown) date) F 08/20/22 17:29 unknown) (unknown) (no (unknown) (unknown) Temperature 98.6 (units (unknown) date) F unknown) (unknown) (no (unknown) (unknown) Temperature (units (un known) date) unknown) (unknown) (no (unknown) (unknown) Time Seen by (units (u nknown) date) Provider: unknown) 08/20/22 17:36 (unknown) (no (unknown) (unknown) Troponin + CK (units ( unknown) date) Cardiac Panel unknown) Stat (unknown) (no (unknown) (unknown) Vital Signs - 8 (units (unknown) date) hr unknown) (unknown) (no (unknown) (unknown) Vital Signs (units (un known) date) unknown) (unknown) (no (unknown) (unknown) Vital signs: (units (u nknown) date) unknown) (unknown) (no (unknown) (unknown) XR chest 1V Stat (units (unknown) date) unknown) (unknown) (no (unknown) (unknown) [Embedded Image (units (unknown) date) Not Available] unknown) (unknown) (no (unknown) (unknown) alcohol intake (units (unknown) date) frequency: 3 or unknown) more drinks per day (unknown) (no (unknown) (unknown) alcohol intake: (units (unknown) date) current unknown) (unknown) (no (unknown) (unknown) amoxicillin (units (un known) date) [AMOXICILLIN] unknown) Allergy Severe SWOLLEN JAW Verified 08/20/22 17:41 (unknown) (no (unknown) (unknown) clindamycin (units (un known) date) [CLINDAMYCIN] unknown) AdvReac Severe C-DIFF Verified 08/20/22 17:41 (unknown) (no (unknown) (unknown) furosemide 20 mg (units (unknown) date) tablet 10 mg PO unknown) QAM #45 tabs 12/15/21 (unknown) (no (unknown) (unknown) furosemide 20 mg (units (unknown) date) tablet unknown) (unknown) (no (unknown) (unknown) household (units (unkn own) date) members: none unknown) (unknown) (no (unknown) (unknown) marital status: (units (unknown) date) unknown) (unknown) (no (unknown) (unknown) metoprolol (units (unk nown) date) succinate 25 mg unknown) 25 mg PO DAILY #30 tabs 10/30/21 (unknown) (no (unknown) (unknown) metoprolol (units (unk nown) date) succinate 25 mg unknown) tablet extended release 24 hr (unknown) (no (unknown) (unknown) occupational (units (u nknown) date) status: unknown) previously employed (unknown) (no (unknown) (unknown) since it RX'd'. (units (unknown) date) unknown) (unknown) (no (unknown) (unknown) substance use (units ( unknown) date) type: does not unknown) use (unknown) (no (unknown) (unknown) tablet,extended (units (unknown) date) release 24 hr unknown) Result panel 915 (unknown) (no date) (unknown) (unknown) 0 /ul (unkn own) (unknown) (no date) (unknown) (unknown) 0 /ul (unkn own) (unknown) (no date) (unknown) (unknown) 0.1 % (unkn own) (unknown) (no date) (unknown) (unknown) 0.4 % (unkn own) (unknown) (no date) (unknown) (unknown) 103.2 fl (unkn own) (unknown) (no date) (unknown) (unknown) 107 x10 3/ul (unkn own) (unknown) (no date) (unknown) (unknown) 11.0 g/dl (unkn own) (unknown) (no date) (unknown) (unknown) 13.7 % (unkn own) (unknown) (no date) (unknown) (unknown) 3.05 x10 6/ul (unkn own) (unknown) (no date) (unknown) (unknown) 31.4 % (unkn own) (unknown) (no date) (unknown) (unknown) 34.9 % (unkn own) (unknown) (no date) (unknown) (unknown) 36.0 pg (unkn own) (unknown) (no date) (unknown) (unknown) 500 /ul (unkn own) (unknown) (no date) (unknown) (unknown) 600 /ul (unkn own) (unknown) (no date) (unknown) (unknown) 6200 /ul (unkn own) (unknown) (no date) (unknown) (unknown) 7.1 % (unkn own) (unknown) (no date) (unknown) (unknown) 7.4 x10 3/ul (unkn own) (unknown) (no date) (unknown) (unknown) 8.1 % (unkn own) (unknown) (no date) (unknown) (unknown) 84.3 % (unkn own) Result panel 916 (unknown) (no (unknown) (unknown) (no value) (units (unk nown) date) unknown) (unknown) (no (unknown) (unknown) (single)CT, (units (un known) date) unknown) (unknown) (no (unknown) (unknown) [id number] (units (unkno wn) date) unknown) (unknown) (no (unknown) (unknown) 08/20/22 (units (unkno wn) date) unknown) (unknown) (no (unknown) (unknown) 1. Bibasilar (units (u nknown) date) atelectasis versus unknown) pneumonia. (unknown) (no (unknown) (unknown) 1. No acute (units (un known) date) fracture. unknown) (unknown) (no (unknown) (unknown) [address] (units (unknown) date) unknown) (unknown) (no (unknown) (unknown) 2. Right lateral (units (unknown) date) pleural nodule. unknown) Follow-up is recommended as below. (unknown) (no (unknown) (unknown) 6 mm or larger (units (unknown) date) (ground glass)CT unknown) at 6-12 months to confirm persistence, then CT (unknown) (no (unknown) (unknown) 6 months, (units (unkn own) date) unknown) (unknown) (no (unknown) (unknown) Abdomen: (units (unkno wn) date) Visualized unknown) portions of the upper abdomen demonstrate diffusely (unknown) (no (unknown) (unknown) Accession Number: (units (unknown) date) [id number] unknown) (unknown) (no (unknown) (unknown) Accession Number: (units (unknown) date) [id number] unknown) (unknown) (no (unknown) (unknown) Age/Sex: 76 / M (units (unknown) date) Date of Service: unknown) (unknown) (no (unknown) (unknown) [place], [place] (units ( unknown) date) [id number] unknown) (unknown) (no (unknown) (unknown) Approved by: (units (u nknown) date) Riley Prakash M.D. unknown) on 08/20/2022 at 19:17 (unknown) (no (unknown) (unknown) Approved by: (units (u nknown) date) Riley Prakash M.D. unknown) on 08/20/2022 at 19:22 (unknown) (no (unknown) (unknown) Bones and chest (units (unknown) date) wall: No unknown) suspicious bony lesions. No acute rib fractures. (unknown) (no (unknown) (unknown) Bones: No (units (unkn own) date) fractures or unknown) dislocations. Mild chronic appearing T2 compression (unknown) (no (unknown) (unknown) COMPARISON: (units (un known) date) [facility], unknown) CT, CT CERVICAL SPINE WO CON, 11/10/2020, 14:56. (unknown) (no (unknown) (unknown) COMPARISON: None. (units (unknown) date) unknown) (unknown) (no (unknown) (unknown) CT Scan Report (units (unknown) date) unknown) (unknown) (no (unknown) (unknown) : 1945 (units (unknown) date) Acct:[id number] unknown) (unknown) (no (unknown) (unknown) Dictated by: (units (u nknown) date) Riley Prakash M.D. unknown) on 08/20/2022 at 19:16 (unknown) (no (unknown) (unknown) Dictated by: (units (u nknown) date) Riley Prakash M.D. unknown) on 08/20/2022 at 19:19 (unknown) (no (unknown) (unknown) FINDINGS: (units (unkn own) date) unknown) (unknown) (no (unknown) (unknown) Fleischner (units (unk nown) date) Society criteria unknown) for SOLID lung nodule followup. (unknown) (no (unknown) (unknown) Fleischner (units (unk nown) date) Society criteria unknown) for SUB-SOLID lung nodule followup. (unknown) (no (unknown) (unknown) IMPRESSION: (units (un known) date) unknown) (unknown) (no (unknown) (unknown) INDICATIONS: ?rib (units (unknown) date) fx unknown) (unknown) (no (unknown) (unknown) INDICATIONS: Fall (units (unknown) date) unknown) (unknown) (no (unknown) (unknown) Image quality: (units (unknown) date) Excellent. unknown) (unknown) (no (unknown) (unknown) [facility] (units (unknown) date) unknown) (unknown) (no (unknown) (unknown) Loc: ED (units (unkno wn) date) unknown) (unknown) (no (unknown) (unknown) Lungs and pleura: (units (unknown) date) No acute air space unknown) opacities. 6 mm subpleural nodule within (unknown) (no (unknown) (unknown) MIP reformats (units ( unknown) date) were then unknown) acquired. For radiation dose reduction, the following (unknown) (no (unknown) (unknown) Mediastinum: (units (u nknown) date) Heart size is unknown) enlarged. Calcification of the coronary (unknown) (no (unknown) (unknown) Mild (units (unkno wn) date) unknown) (unknown) (no (unknown) (unknown) Multiple (units (unkno wn) date) unknown) (unknown) (no (unknown) (unknown) No (units (unkno wn) date) unknown) (unknown) (no (unknown) (unknown) Nodule size (units (un known) date) (mm)Low-risk unknown) patientHigh-risk patient<6 (single or multiple)No (unknown) (no (unknown) (unknown) Noncontrast 3 mm (units (unknown) date) thick sections unknown) acquired from the skull base to the T4 level. (unknown) (no (unknown) (unknown) Noncontrast 5 mm (units (unknown) date) thick sections unknown) acquired from the pulmonary apices to the (unknown) (no (unknown) (unknown) Ordering (units (unkno wn) date) Provider: unknown) Lizandro Caicedo P.A-C (unknown) (no (unknown) (unknown) PET-CT, or biopsy (units (unknown) date) at 3 months. Same unknown) as for low-risk pts. >8 (multiple)CT at 3 (unknown) (no (unknown) (unknown) PROCEDURE: CT (units ( unknown) date) CERVICAL SPINE WO unknown) CON (unknown) (no (unknown) (unknown) PROCEDURE: CT (units ( unknown) date) CHEST WO CON unknown) (unknown) (no (unknown) (unknown) Patient: (units (unkno wn) date) Eleazar Charles O unknown) MR#: [id number] (unknown) (no (unknown) (unknown) Procedure: CT (units ( unknown) date) cervical spine wo unknown) con (unknown) (no (unknown) (unknown) Procedure: CT (units ( unknown) date) chest wo con unknown) (unknown) (no (unknown) (unknown) Sagittal (units (unkno wn) date) unknown) (unknown) (no (unknown) (unknown) Signed (units (unkno wn) date) unknown) (unknown) (no (unknown) (unknown) Soft tissues: (units ( unknown) date) Prevertebral soft unknown) tissues are normal in thickness. No (unknown) (no (unknown) (unknown) Solitary pure (units (u nknown) date) ground-glass unknown) nodules<6 mm (ground glass or part solid)No followup (unknown) (no (unknown) (unknown) TECHNIQUE: (units (unk nown) date) unknown) (unknown) (no (unknown) (unknown) Thyroid gland is (units (unknown) date) unknown) (unknown) (no (unknown) (unknown) Visualized (units (unk nown) date) superior ribs are unknown) intact. (unknown) (no (unknown) (unknown) airspace opacity. (units (unknown) date) No pleural unknown) effusions or pneumothorax. Central and (unknown) (no (unknown) (unknown) and coronal (units (un known) date) reformats were unknown) then constructed. For radiation dose reduction, the (unknown) (no (unknown) (unknown) aorta and (units (unkn own) date) unknown) (unknown) (no (unknown) (unknown) are patent and (units (unknown) date) normal in caliber. unknown) (unknown) (no (unknown) (unknown) automated (units (unkn own) date) exposure control, unknown) adjustment of mA and/or kV according to patient (unknown) (no (unknown) (unknown) bibasilar (units (unkn own) date) unknown) (unknown) (no (unknown) (unknown) central pulmonary (units (unknown) date) arteries are unknown) normal in size. Esophagus is normal in caliber. (unknown) (no (unknown) (unknown) compression (units (un known) date) unknown) (unknown) (no (unknown) (unknown) costophrenic (units (u nknown) date) angles. 1 mm lung unknown) window, 5 mm thick coronal and sagittal and 7 (unknown) (no (unknown) (unknown) decreased (units (unkn own) date) unknown) (unknown) (no (unknown) (unknown) every 2 (units (unkno wn) date) unknown) (unknown) (no (unknown) (unknown) following (units (unkn own) date) unknown) (unknown) (no (unknown) (unknown) followup.Optional (units (unknown) date) CT at 12 months. unknown) 6-8 (single or multiple)CT at 6-12 months, (unknown) (no (unknown) (unknown) fracture. (units (unkn own) date) unknown) (unknown) (no (unknown) (unknown) fractures. No (units ( unknown) date) axillary or unknown) supraclavicular adenopathy by size criteria. (unknown) (no (unknown) (unknown) hematomas. No (units ( unknown) date) apical unknown) pneumothoraces. (unknown) (no (unknown) (unknown) hepatic density. (units (unknown) date) unknown) (unknown) (no (unknown) (unknown) hiatal hernia. (units (unknown) date) unknown) (unknown) (no (unknown) (unknown) high risk (units (unkn own) date) unknown) (unknown) (no (unknown) (unknown) immunosuppression (units (unknown) date) , or patients with unknown) known primary cancer. (unknown) (no (unknown) (unknown) lateral aspect of (units (unknown) date) the major fissure unknown) (series 3, image 135). Mild dependent (unknown) (no (unknown) (unknown) mm axial (units (unkno wn) date) unknown) (unknown) (no (unknown) (unknown) most (units (unkno wn) date) unknown) (unknown) (no (unknown) (unknown) multilevel (units (unk nown) date) chronic appearing unknown) compression fractures. No acute vertebral body (unknown) (no (unknown) (unknown) needed. (units (unkno wn) date) unknown) (unknown) (no (unknown) (unknown) optional CT at (units (unknown) date) 18-24 mo.CT at unknown) 6-12 months, then CT at 18-24 months. >8 (unknown) (no (unknown) (unknown) paravertebral (units ( unknown) date) unknown) (unknown) (no (unknown) (unknown) patient (units (unkno wn) date) unknown) (unknown) (no (unknown) (unknown) patients with (units ( unknown) date) unknown) (unknown) (no (unknown) (unknown) patients. 6 mm or (units (unknown) date) larger. CT at 3-6 unknown) months. Subsequent management based on (unknown) (no (unknown) (unknown) pericardial (units (un known) date) effusion. No unknown) mediastinal adenopathy by size criteria. Thoracic (unknown) (no (unknown) (unknown) peripheral (units (unk nown) date) airways unknown) (unknown) (no (unknown) (unknown) persistence, (units (u nknown) date) unknown) (unknown) (no (unknown) (unknown) posterior (units (unkn own) date) unknown) (unknown) (no (unknown) (unknown) routine (units (unkno wn) date) unknown) (unknown) (no (unknown) (unknown) size. (units (unkno wn) date) unknown) (unknown) (no (unknown) (unknown) sub-solid (units (unkn own) date) nodules<6 mmCT at unknown) 3-6 months, then CT consider at 2 + 4 years for (unknown) (no (unknown) (unknown) suspicious (units (unk nown) date) lesions. unknown) Recommendations do not apply to lung cancer screening, (unknown) (no (unknown) (unknown) the (units (unkno wn) date) unknown) (unknown) (no (unknown) (unknown) then annual CT (units (unknown) date) until 5 years if unknown) unchanged and solid component remains <6 mm. (unknown) (no (unknown) (unknown) then optional CT (units (unknown) date) at 18-24 mo.CT at unknown) 3-6 months, then CT at 18-24 months. (unknown) (no (unknown) (unknown) then (units (unkno wn) date) unknown) (unknown) (no (unknown) (unknown) vasculature. No (units (unknown) date) unknown) (unknown) (no (unknown) (unknown) was used: (units (unkn own) date) automated exposure unknown) control, adjustment of mA and/or kV according to (unknown) (no (unknown) (unknown) was used: (units (unkn own) date) unknown) (unknown) (no (unknown) (unknown) within normal (units ( unknown) date) limits on unknown) noncontrast imaging . (unknown) (no (unknown) (unknown) years until 5 (units ( unknown) date) years.6 mm or unknown) larger (part solid)CT at 3-6 months to confirm Result panel 917 (unknown) (no (unknown) (unknown) (no value) (units (unk nown) date) unknown) (unknown) (no (unknown) (unknown) 08/20/22 17:35 (units (unknown) date) unknown) (unknown) (no (unknown) (unknown) 08/20/22 17:36 (units (unknown) date) unknown) (unknown) (no (unknown) (unknown) 08/20/22 17:49 (units (unknown) date) unknown) (unknown) (no (unknown) (unknown) 08/20/22 (units (unkno wn) date) unknown) (unknown) (no (unknown) (unknown) [id number] (units (unkno wn) date) unknown) (unknown) (no (unknown) (unknown) 10 mg PO QAM (units (u nknown) date) Qty: 45 1RF unknown) (unknown) (no (unknown) (unknown) 17:29 08/20/22 (units (unknown) date) unknown) (unknown) (no (unknown) (unknown) 17:32 08/20/22 (units (unknown) date) unknown) (unknown) (no (unknown) (unknown) 17:55 08/20/22 (units (unknown) date) unknown) (unknown) (no (unknown) (unknown) 17:55 (units (unkno wn) date) unknown) (unknown) (no (unknown) (unknown) 18:00 08/20/22 (units (unknown) date) unknown) (unknown) (no (unknown) (unknown) 18:00 (units (unkno wn) date) unknown) (unknown) (no (unknown) (unknown) 25 mg PO DAILY (units (unknown) date) Qty: 30 0RF unknown) (unknown) (no (unknown) (unknown) Age/Sex: 76 / M (units (unknown) date) unknown) (unknown) (no (unknown) (unknown) Alcohol abuse (units ( unknown) date) unknown) (unknown) (no (unknown) (unknown) Alcohol type: (units ( unknown) date) beer, wine and unknown) hard liquor (unknown) (no (unknown) (unknown) Alcohol (units (unkno wn) date) withdrawal unknown) delirium (unknown) (no (unknown) (unknown) Alcohol (units (unkno wn) date) withdrawal unknown) (unknown) (no (unknown) (unknown) Allergies (units (unkn own) date) unknown) (unknown) (no (unknown) (unknown) Allergy/AdvReac (units (unknown) date) Type Severity unknown) Reaction Status Date / Time (unknown) (no (unknown) (unknown) Anemia, chronic (units (unknown) date) disease unknown) (unknown) (no (unknown) (unknown) Aspirin (Aspirin (units (unknown) date) 81 Mg Chew Tab) unknown) 324 mg PO NOW ONE (unknown) (no (unknown) (unknown) Atrial (units (unkno wn) date) fibrillation unknown) (unknown) (no (unknown) (unknown) BPH w urinary (units ( unknown) date) obs/LUTS unknown) (unknown) (no (unknown) (unknown) Blood Pressure (units (unknown) date) 110/79 126/82 unknown) (unknown) (no (unknown) (unknown) Blood Pressure (units (unknown) date) 114/70 08/20/22 unknown) 17:29 (unknown) (no (unknown) (unknown) Blood Pressure (units (unknown) date) 114 114/ unknown) (unknown) (no (unknown) (unknown) CT head/brain wo (units (unknown) date) con Stat unknown) (unknown) (no (unknown) (unknown) Cardiomyopathy (units (unknown) date) unknown) (unknown) (no (unknown) (unknown) Chief Complaint: (units (unknown) date) Arrhythmia/Palpit unknown) ations (unknown) (no (unknown) (unknown) Complete Blood (units (unknown) date) Count AUTO DIFF unknown) Stat (unknown) (no (unknown) (unknown) Comprehensive (units ( unknown) date) Metabolic Panel unknown) Stat (unknown) (no (unknown) (unknown) Course (units (unkno wn) date) unknown) (unknown) (no (unknown) (unknown) : 1945 (units (unknown) date) Acct:[id number] unknown) (unknown) (no (unknown) (unknown) Date of Service: (units (unknown) date) 08/20/22 unknown) (unknown) (no (unknown) (unknown) Departure (units (unkn own) date) unknown) (unknown) (no (unknown) (unknown) Discharge Plan (units (unknown) date) unknown) (unknown) (no (unknown) (unknown) Discontinued (units (u nknown) date) Medications unknown) (unknown) (no (unknown) (unknown) Documented By: (units (unknown) date) MLM unknown) (unknown) (no (unknown) (unknown) ED Orders (units (unkn own) date) unknown) (unknown) (no (unknown) (unknown) EKG-12 Lead Stat (units (unknown) date) unknown) (unknown) (no (unknown) (unknown) ER Physician: (units ( unknown) date) Lizandro Caicedo P.A-C unknown) (unknown) (no (unknown) (unknown) Emergency Report (units (unknown) date) unknown) (unknown) (no (unknown) (unknown) Ethanol (ETOH) (units (unknown) date) Stat unknown) (unknown) (no (unknown) (unknown) Exam (units (unkno wn) date) unknown) (unknown) (no (unknown) (unknown) Family History (units (unknown) date) (Reviewed unknown) 12/25/21 @ 16:19 by Pop Delgado PA-C) (unknown) (no (unknown) (unknown) Former smoker (units ( unknown) date) unknown) (unknown) (no (unknown) (unknown) Jeannette Chaudhary, (units (unknown) date) MD [Primary Care unknown) Provider] (unknown) (no (unknown) (unknown) General (units (unkno wn) date) unknown) (unknown) (no (unknown) (unknown) Gout (units (unkno wn) date) unknown) (unknown) (no (unknown) (unknown) HPI - (units (unkno wn) date) Arrhythmia/Palpit unknown) ations (unknown) (no (unknown) (unknown) HTN (units (unkno wn) date) (hypertension) unknown) (unknown) (no (unknown) (unknown) 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 (unknown) (no (unknown) (unknown) History of (units (unk nown) date) percutaneous unknown) endoscopic gastrostomy () (unknown) (no (unknown) (unknown) Initial Vital (units ( unknown) date) Signs unknown) (unknown) (no (unknown) (unknown) Initial Vital (units ( unknown) date) Signs: unknown) (unknown) (no (unknown) (unknown) [facility] (units (unknown) date) [address] unknown) [place] [address] (unknown) (no (unknown) (unknown) Lab Data (units (unkno wn) date) unknown) (unknown) (no (unknown) (unknown) Label Comments: (units (unknown) date) unknown) (unknown) (no (unknown) (unknown) Last Admin: (units (un known) date) 08/20/22 18:16 unknown) Dose: 324 mg (unknown) (no (unknown) (unknown) Lipase Stat (units (un known) date) unknown) (unknown) (no (unknown) (unknown) MDM - (units (unkno wn) date) Arrhythmia/Palpit unknown) ations (unknown) (no (unknown) (unknown) Magnesium Stat (units (unknown) date) unknown) (unknown) (no (unknown) (unknown) Medical History (units (unknown) date) (Reviewed unknown) 12/25/21 @ 16:19 by Pop Delgado PA-C) (unknown) (no (unknown) (unknown) Medication (units (unk nown) date) Instructions unknown) Recorded (unknown) (no (unknown) (unknown) Mixed (units (unkno wn) date) hyperlipidemia unknown) (unknown) (no (unknown) (unknown) Mode of arrival: (units (unknown) date) Wheelchair unknown) (unknown) (no (unknown) (unknown) 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 unknown) (unknown) (no (unknown) (unknown) No Action (units (unkn own) date) unknown) (unknown) (no (unknown) (unknown) Ordered: (units (unkno wn) date) unknown) (unknown) (no (unknown) (unknown) Orders (units (unkno wn) date) unknown) (unknown) (no (unknown) (unknown) Oxygen Delivery (units (unknown) date) Method 08/20/22 unknown) 17:29 (unknown) (no (unknown) (unknown) Oxygen Delivery (units (unknown) date) Method Room Air unknown) Room Air (unknown) (no (unknown) (unknown) Oxygen Delivery (units (unknown) date) Method Room Air unknown) (unknown) (no (unknown) (unknown) Partial (units (unkno wn) date) Thromboplastin unknown) Time Stat (unknown) (no (unknown) (unknown) Patient History (units (unknown) date) unknown) (unknown) (no (unknown) (unknown) Patient: (units (unkno wn) date) Eleazar Charles unknown) MR#: [id number] (unknown) (no (unknown) (unknown) Prescriptions: (units (unknown) date) unknown) (unknown) (no (unknown) (unknown) Previous Rx's (units ( unknown) date) unknown) (unknown) (no (unknown) (unknown) Prothrombin Time (units (unknown) date) INR Stat unknown) (unknown) (no (unknown) (unknown) Pt reports (units (unk nown) date) taking every unknown) other day, at best. Also stated' only takes 2 pills, (unknown) (no (unknown) (unknown) Pulse Oximetry (units (unknown) date) 93 08/20/22 17:29 unknown) (unknown) (no (unknown) (unknown) Pulse Oximetry (units (unknown) date) 93 96 unknown) (unknown) (no (unknown) (unknown) Pulse Oximetry (units (unknown) date) 98 unknown) (unknown) (no (unknown) (unknown) Pulse Rate 88 (units ( unknown) date) unknown) (unknown) (no (unknown) (unknown) Pulse Rate 96 H (units (unknown) date) 08/20/22 17:29 unknown) (unknown) (no (unknown) (unknown) Pulse Rate 96 H (units (unknown) date) 88 unknown) (unknown) (no (unknown) (unknown) Referrals: (units (unk nown) date) unknown) (unknown) (no (unknown) (unknown) Related Data (units (u nknown) date) unknown) (unknown) (no (unknown) (unknown) Respiratory Rate (units (unknown) date) 20 08/20/22 17:29 unknown) (unknown) (no (unknown) (unknown) Respiratory Rate (units (unknown) date) 20 21 unknown) (unknown) (no (unknown) (unknown) Respiratory Rate (units (unknown) date) 21 unknown) (unknown) (no (unknown) (unknown) Signed By: (units (unk nown) date) unknown) (unknown) (no (unknown) (unknown) Sister (units (unkno wn) date) Rheumatoid unknown) arthritis (unknown) (no (unknown) (unknown) Smoking Status: (units (unknown) date) Former smoker unknown) (unknown) (no (unknown) (unknown) Social History (units (unknown) date) (Reviewed unknown) 12/25/21 @ 16:19 by Pop Delgado PA-C) (unknown) (no (unknown) (unknown) Source: patient (units (unknown) date) unknown) (unknown) (no (unknown) (unknown) Stated (units (unkno wn) date) Complaint: unknown) a-fib/passed out this morning (unknown) (no (unknown) (unknown) Stop: 08/20/22 (units (unknown) date) 17:37 unknown) (unknown) (no (unknown) (unknown) Substance Use (units ( unknown) date) Type: does not unknown) use (unknown) (no (unknown) (unknown) Surgical History (units (unknown) date) (Reviewed unknown) 12/25/21 @ 16:19 by Pop Delgado PA-C) (unknown) (no (unknown) (unknown) Temperature 98.6 (units (unknown) date) F 08/20/22 17:29 unknown) (unknown) (no (unknown) (unknown) Temperature 98.6 (units (unknown) date) F unknown) (unknown) (no (unknown) (unknown) Temperature (units (un known) date) unknown) (unknown) (no (unknown) (unknown) Time Seen by (units (u nknown) date) Provider: unknown) 08/20/22 17:36 (unknown) (no (unknown) (unknown) Troponin + CK (units ( unknown) date) Cardiac Panel unknown) Stat (unknown) (no (unknown) (unknown) Vital Signs - 8 (units (unknown) date) hr unknown) (unknown) (no (unknown) (unknown) Vital Signs (units (un known) date) unknown) (unknown) (no (unknown) (unknown) Vital signs: (units (u nknown) date) unknown) (unknown) (no (unknown) (unknown) XR chest 1V Stat (units (unknown) date) unknown) (unknown) (no (unknown) (unknown) [Embedded Image (units (unknown) date) Not Available] unknown) (unknown) (no (unknown) (unknown) alcohol intake (units (unknown) date) frequency: 3 or unknown) more drinks per day (unknown) (no (unknown) (unknown) alcohol intake: (units (unknown) date) current unknown) (unknown) (no (unknown) (unknown) amoxicillin (units (un known) date) [AMOXICILLIN] unknown) Allergy Severe SWOLLEN JAW Verified 08/20/22 17:41 (unknown) (no (unknown) (unknown) clindamycin (units (un known) date) [CLINDAMYCIN] unknown) AdvReac Severe C-DIFF Verified 08/20/22 17:41 (unknown) (no (unknown) (unknown) furosemide 20 mg (units (unknown) date) tablet 10 mg PO unknown) QAM #45 tabs 12/15/21 (unknown) (no (unknown) (unknown) furosemide 20 mg (units (unknown) date) tablet unknown) (unknown) (no (unknown) (unknown) household (units (unkn own) date) members: none unknown) (unknown) (no (unknown) (unknown) marital status: (units (unknown) date) unknown) (unknown) (no (unknown) (unknown) metoprolol (units (unk nown) date) succinate 25 mg unknown) 25 mg PO DAILY #30 tabs 10/30/21 (unknown) (no (unknown) (unknown) metoprolol (units (unk nown) date) succinate 25 mg unknown) tablet extended release 24 hr (unknown) (no (unknown) (unknown) occupational (units (u nknown) date) status: unknown) previously employed (unknown) (no (unknown) (unknown) since it RX'd'. (units (unknown) date) unknown) (unknown) (no (unknown) (unknown) substance use (units ( unknown) date) type: does not unknown) use (unknown) (no (unknown) (unknown) tablet,extended (units (unknown) date) release 24 hr unknown) Result panel [id number] (unknown) (no date) (unknown) (unknown) > 60 ml/min (unkn own) (unknown) (no date) (unknown) (unknown) > 60 ml/min (unkn own) (unknown) (no date) (unknown) (unknown) 0.013 ng/ml (unkn own) (unknown) (no date) (unknown) (unknown) 0.013 ng/ml (unkn own) (unknown) (no date) (unknown) (unknown) 1.05 mg/dl (unkn own) (unknown) (no date) (unknown) (unknown) 1.2 mg/dl (unkn own) (unknown) (no date) (unknown) (unknown) 1.3 mg/dl (unkn own) (unknown) (no date) (unknown) (unknown) 1.6 (units unknown) (unknown) (unknown) (no date) (unknown) (unknown) 1.8 % (unkn own) (unknown) (no date) (unknown) (unknown) 100 mg/dl (unkn own) (unknown) (no date) (unknown) (unknown) 100 mg/dl (unkn own) (unknown) (no date) (unknown) (unknown) 127 u/l (unkn own) (unknown) (no date) (unknown) (unknown) 130 mmol/l (unkn own) (unknown) (no date) (unknown) (unknown) 144 u/l (unkn own) (unknown) (no date) (unknown) (unknown) 15.2 (units unknown) (unknown) (unknown) (no date) (unknown) (unknown) 16 mg/dl (unkn own) (unknown) (no date) (unknown) (unknown) 2.5 g/dl (unkn own) (unknown) (no date) (unknown) (unknown) 2.54 ng/ml (unkn own) (unknown) (no date) (unknown) (unknown) 24 mmol/l (unkn own) (unknown) (no date) (unknown) (unknown) 4.1 g/dl (unkn own) (unknown) (no date) (unknown) (unknown) 4.8 mmol/l (unkn own) (unknown) (no date) (unknown) (unknown) 40 iu/l (unkn own) (unknown) (no date) (unknown) (unknown) 57 iu/l (unkn own) (unknown) (no date) (unknown) (unknown) 6.6 g/dl (unkn own) (unknown) (no date) (unknown) (unknown) 67 u/l (unkn own) (unknown) (no date) (unknown) (unknown) 8.7 mg/dl (unkn own) (unknown) (no date) (unknown) (unknown) 97 mmol/l (unkn own) Result panel 919 (unknown) (no (unknown) (unknown) (no value) (units (unk nown) date) unknown) (unknown) (no (unknown) (unknown) 08/20/22 08/20/22 (units (unknown) date) 08/20/22 unknown) Range/Units (unknown) (no (unknown) (unknown) 08/20/22 17:35 (units (unknown) date) unknown) (unknown) (no (unknown) (unknown) 08/20/22 17:36 (units (unknown) date) unknown) (unknown) (no (unknown) (unknown) 08/20/22 17:49 (units (unknown) date) unknown) (unknown) (no (unknown) (unknown) 08/20/22 18:41 (units (unknown) date) unknown) (unknown) (no (unknown) (unknown) 08/20/22 18:42 (units (unknown) date) unknown) (unknown) (no (unknown) (unknown) 08/20/22 18:43 (units (unknown) date) unknown) (unknown) (no (unknown) (unknown) 08/20/22 (units (unkno wn) date) Range/Units unknown) (unknown) (no (unknown) (unknown) 08/20/22 (units (unkno wn) date) unknown) (unknown) (no (unknown) (unknown) [id number] (units (unkno wn) date) unknown) (unknown) (no (unknown) (unknown) 10 mg PO QAM Qty: (units (unknown) date) 45 1RF unknown) (unknown) (no (unknown) (unknown) 17:29 08/20/22 (units (unknown) date) unknown) (unknown) (no (unknown) (unknown) 17:32 08/20/22 (units (unknown) date) unknown) (unknown) (no (unknown) (unknown) 17:35 17:35 17:35 (units (unknown) date) unknown) (unknown) (no (unknown) (unknown) 17:35 (units (unkno wn) date) unknown) (unknown) (no (unknown) (unknown) 17:55 08/20/22 (units (unknown) date) unknown) (unknown) (no (unknown) (unknown) 17:55 (units (unkno wn) date) unknown) (unknown) (no (unknown) (unknown) 18:00 08/20/22 (units (unknown) date) unknown) (unknown) (no (unknown) (unknown) 18:00 (units (unkno wn) date) unknown) (unknown) (no (unknown) (unknown) 25 mg PO DAILY (units (unknown) date) Qty: 30 0RF unknown) (unknown) (no (unknown) (unknown) ALT (<50) IU/L (units (unknown) date) unknown) (unknown) (no (unknown) (unknown) ALT 40 (<50) IU/L (units (unknown) date) unknown) (unknown) (no (unknown) (unknown) APTT (26-36) (units (u nknown) date) SECONDS unknown) (unknown) (no (unknown) (unknown) APTT 27 (26-36) (units (unknown) date) SECONDS unknown) (unknown) (no (unknown) (unknown) AST (17-59) IU/L (units (unknown) date) unknown) (unknown) (no (unknown) (unknown) AST 57 (17-59) (units (unknown) date) IU/L unknown) (unknown) (no (unknown) (unknown) Age/Sex: 76 / M (units (unknown) date) unknown) (unknown) (no (unknown) (unknown) Albumin (3.5-5.0) (units (unknown) date) g/dL unknown) (unknown) (no (unknown) (unknown) Albumin 4.1 (units (un known) date) (3.5-5.0) g/dL unknown) (unknown) (no (unknown) (unknown) Albumin/Globulin (units (unknown) date) Ratio (1.0-2.8) unknown) (unknown) (no (unknown) (unknown) Albumin/Globulin (units (unknown) date) Ratio 1.6 (1.0-2.8) unknown) (unknown) (no (unknown) (unknown) Alcohol abuse (units ( unknown) date) unknown) (unknown) (no (unknown) (unknown) Alcohol type: (units ( unknown) date) beer, wine and hard unknown) liquor (unknown) (no (unknown) (unknown) Alcohol withdrawal (units (unknown) date) delirium unknown) (unknown) (no (unknown) (unknown) Alcohol withdrawal (units (unknown) date) unknown) (unknown) (no (unknown) (unknown) Alkaline (units (unkno wn) date) Phosphatase unknown) (38-126) U/L (unknown) (no (unknown) (unknown) Alkaline (units (unkno wn) date) Phosphatase 67 unknown) (38-126) U/L (unknown) (no (unknown) (unknown) Allergic/Immunolog (units (unknown) date) ic unknown) (unknown) (no (unknown) (unknown) Allergic/Immunolog (units (unknown) date) ic: Denies unknown) urticaria, Denies throat swelling and Denies (unknown) (no (unknown) (unknown) Allergies (units (unkn own) date) unknown) (unknown) (no (unknown) (unknown) Allergy/AdvReac (units (unknown) date) Type Severity unknown) Reaction Status Date / Time (unknown) (no (unknown) (unknown) Anemia, chronic (units (unknown) date) disease unknown) (unknown) (no (unknown) (unknown) Aspirin (Aspirin (units (unknown) date) 81 Mg Chew Tab) 324 unknown) mg PO NOW ONE (unknown) (no (unknown) (unknown) Atrial (units (unkno wn) date) fibrillation unknown) (unknown) (no (unknown) (unknown) Auscultation:?leigh (units (unknown) date) r to auscultation unknown) bilaterally (unknown) (no (unknown) (unknown) BPH w urinary (units ( unknown) date) obs/LUTS unknown) (unknown) (no (unknown) (unknown) BUN (9-20) mg/dL (units (unknown) date) unknown) (unknown) (no (unknown) (unknown) BUN 16 (9-20) (units ( unknown) date) mg/dL unknown) (unknown) (no (unknown) (unknown) BUN/Creatinine (units (unknown) date) Ratio (6-22) unknown) (unknown) (no (unknown) (unknown) BUN/Creatinine (units (unknown) date) Ratio 15.2 (6-22) unknown) (unknown) (no (unknown) (unknown) Baso # (Auto) (units ( unknown) date) (0-100) /uL unknown) (unknown) (no (unknown) (unknown) Baso # (Auto) 0 (units (unknown) date) (0-100) /uL unknown) (unknown) (no (unknown) (unknown) Baso % (Auto) (units ( unknown) date) (0-2) % unknown) (unknown) (no (unknown) (unknown) Baso % (Auto) 0.4 (units (unknown) date) (0-2) % unknown) (unknown) (no (unknown) (unknown) Bedside Urine (units ( unknown) date) Bilirubin - unknown) Negative (unknown) (no (unknown) (unknown) Bedside Urine (units ( unknown) date) Glucose Negative unknown) (unknown) (no (unknown) (unknown) Bedside Urine (units ( unknown) date) Ketone - Negative unknown) (unknown) (no (unknown) (unknown) Bedside Urine (units ( unknown) date) Leukocytes - unknown) Negative (unknown) (no (unknown) (unknown) Bedside Urine (units ( unknown) date) Nitrite - Negative unknown) (unknown) (no (unknown) (unknown) Bedside Urine (units ( unknown) date) Occult Blood +/ unknown) (unknown) (no (unknown) (unknown) Bedside Urine (units ( unknown) date) Protein - Negative unknown) (unknown) (no (unknown) (unknown) Bedside Urine (units ( unknown) date) Urobilinogen - unknown) Negative (unknown) (no (unknown) (unknown) Bedside Urine pH (units (unknown) date) 6.5 unknown) (unknown) (no (unknown) (unknown) Blood Pressure (units (unknown) date) 110/79 126/82 unknown) (unknown) (no (unknown) (unknown) Blood Pressure (units (unknown) date) 114/70 08/20/22 unknown) 17:29 (unknown) (no (unknown) (unknown) Blood Pressure (units (unknown) date) 114/70 114/70 unknown) (unknown) (no (unknown) (unknown) CT cervical spine (units (unknown) date) wo con Stat unknown) (unknown) (no (unknown) (unknown) CT chest wo con (units (unknown) date) Stat unknown) (unknown) (no (unknown) (unknown) CT head/brain wo (units (unknown) date) con Stat unknown) (unknown) (no (unknown) (unknown) Calcium (8.4-10.2) (units (unknown) date) mg/dL unknown) (unknown) (no (unknown) (unknown) Calcium 8.7 (units (un known) date) (8.4-10.2) mg/dL unknown) (unknown) (no (unknown) (unknown) Carbon Dioxide (units (unknown) date) (22-32) mmol/L unknown) (unknown) (no (unknown) (unknown) Carbon Dioxide 24 (units (unknown) date) (22-32) mmol/L unknown) (unknown) (no (unknown) (unknown) Cardio (units (unkno wn) date) unknown) (unknown) (no (unknown) (unknown) Cardiomyopathy (units (unknown) date) unknown) (unknown) (no (unknown) (unknown) Cardiovascular (units (unknown) date) unknown) (unknown) (no (unknown) (unknown) Cardiovascular: (units (unknown) date) Denies chest pain, unknown) Reports irregular heart rhythm, Denies (unknown) (no (unknown) (unknown) Chief Complaint: (units (unknown) date) Arrhythmia/Palpitat unknown) ions (unknown) (no (unknown) (unknown) Chloride (98-107) (units (unknown) date) mmol/L unknown) (unknown) (no (unknown) (unknown) Chloride 97 L (units ( unknown) date) (98-107) mmol/L unknown) (unknown) (no (unknown) (unknown) Complete Blood (units (unknown) date) Count AUTO DIFF unknown) Stat (unknown) (no (unknown) (unknown) Comprehensive (units ( unknown) date) Metabolic Panel unknown) Stat (unknown) (no (unknown) (unknown) Const (units (unkno wn) date) unknown) (unknown) (no (unknown) (unknown) Constitutional (units (unknown) date) unknown) (unknown) (no (unknown) (unknown) Constitutional: (units (unknown) date) Denies chills, unknown) Denies fatigue, Denies fever(s), Denies frequent (unknown) (no (unknown) (unknown) Course (units (unkno wn) date) unknown) (unknown) (no (unknown) (unknown) Creatinine (units (unk nown) date) (0.66-1.25) mg/dL unknown) (unknown) (no (unknown) (unknown) Creatinine 1.05 (units (unknown) date) (0.66-1.25) mg/dL unknown) (unknown) (no (unknown) (unknown) : 1945 (units (unknown) date) Acct:[id number] unknown) (unknown) (no (unknown) (unknown) Date of Service: (units (unknown) date) 08/20/22 unknown) (unknown) (no (unknown) (unknown) Denies depression, (units (unknown) date) Reports memory unknown) loss, Denies homicidal ideation and Denies (unknown) (no (unknown) (unknown) Denies frequent (units (unknown) date) falls, Denies loss unknown) of vision, Reports memory loss, Denies (unknown) (no (unknown) (unknown) Denies loss of (units (unknown) date) vision unknown) (unknown) (no (unknown) (unknown) Denies numbness (units (unknown) date) and Denies tingling unknown) (unknown) (no (unknown) (unknown) Departure (units (unkn own) date) unknown) (unknown) (no (unknown) (unknown) Discharge Plan (units (unknown) date) unknown) (unknown) (no (unknown) (unknown) Discontinued (units (u nknown) date) Medications unknown) (unknown) (no (unknown) (unknown) Documented By: MLM (units (unknown) date) unknown) (unknown) (no (unknown) (unknown) ED Orders (units (unkn own) date) unknown) (unknown) (no (unknown) (unknown) EKG-12 Lead Stat (units (unknown) date) unknown) (unknown) (no (unknown) (unknown) ENT (units (unkno wn) date) unknown) (unknown) (no (unknown) (unknown) ER Physician: (units ( unknown) date) Sascha,Hyma P.A-C unknown) (unknown) (no (unknown) (unknown) Ears, Nose, Mouth, (units (unknown) date) and Throat: Denies unknown) change in voice, Denies dizziness, Reports (unknown) (no (unknown) (unknown) Ears:?hearing (units ( unknown) date) grossly normal unknown) bilaterally (unknown) (no (unknown) (unknown) Effort + (units (unkno wn) date) Inspection:?normal unknown) respiratory effort (unknown) (no (unknown) (unknown) Emergency Report (units (unknown) date) unknown) (unknown) (no (unknown) (unknown) Endocrine (units (unkn own) date) unknown) (unknown) (no (unknown) (unknown) Endocrine: Denies (units (unknown) date) fatigue, Denies unknown) flushing and Denies palpitations (unknown) (no (unknown) (unknown) Eos # (Auto) (units (u nknown) date) (0-450) /uL unknown) (unknown) (no (unknown) (unknown) Eos # (Auto) 0 (units (unknown) date) (0-450) /uL unknown) (unknown) (no (unknown) (unknown) Eos % (Auto) (2-4) (units (unknown) date) % unknown) (unknown) (no (unknown) (unknown) Eos % (Auto) 0.1 L (units (unknown) date) (2-4) % unknown) (unknown) (no (unknown) (unknown) Esterase (units (unkno wn) date) unknown) (unknown) (no (unknown) (unknown) Estimated GFR > 60 (units (unknown) date) (>60) mL/min unknown) (unknown) (no (unknown) (unknown) Estimated GFR (units ( unknown) date) (>60) mL/min unknown) (unknown) (no (unknown) (unknown) Ethanol (ETOH) (units (unknown) date) Stat unknown) (unknown) (no (unknown) (unknown) Ethyl Alcohol < 10 (units (unknown) date) ( - 10) mg/dL unknown) (unknown) (no (unknown) (unknown) Ethyl Alcohol ( - (units (unknown) date) 10) mg/dL unknown) (unknown) (no (unknown) (unknown) Exam Narrative: (units (unknown) date) unknown) (unknown) (no (unknown) (unknown) Exam (units (unkno wn) date) unknown) (unknown) (no (unknown) (unknown) Eyes (units (unkno wn) date) unknown) (unknown) (no (unknown) (unknown) Eyes: Denies (units (u nknown) date) change in vision, unknown) Denies eye discharge, Denies irritation and (unknown) (no (unknown) (unknown) Face and (units (unkno wn) date) sinus:?normal unknown) facial exam and sinuses nontender (unknown) (no (unknown) (unknown) Family History (units (unknown) date) (Reviewed 12/25/21 unknown) @ 16:19 by Pop Delgado PA-C) (unknown) (no (unknown) (unknown) Former smoker (units ( unknown) date) unknown) (unknown) (no (unknown) (unknown) Jeannette Chaudhary, (units (unknown) date) MD [Primary Care unknown) Provider] (unknown) (no (unknown) (unknown) Gastrointestinal (units (unknown) date) unknown) (unknown) (no (unknown) (unknown) Gastrointestinal: (units (unknown) date) Denies abdominal unknown) pain, Denies change in bowel habits, Denies (unknown) (no (unknown) (unknown) General (units (unkno wn) date) unknown) (unknown) (no (unknown) (unknown) General:?appearanc (units (unknown) date) e normal, both eyes unknown) and all related structures (unknown) (no (unknown) (unknown) General:?cooperati (units (unknown) date) ve, healthy unknown) appearing and comfortable (unknown) (no (unknown) (unknown) General:?patient (units (unknown) date) alert, patient unknown) awake and patient oriented x3; CIWA score 9 on (unknown) (no (unknown) (unknown) Genitourinary (units ( unknown) date) unknown) (unknown) (no (unknown) (unknown) Genitourinary: (units (unknown) date) Denies hematuria, unknown) Denies flank pain, Denies urinary incontinence (unknown) (no (unknown) (unknown) Globulin (1.7-4.1) (units (unknown) date) g/dL unknown) (unknown) (no (unknown) (unknown) Globulin 2.5 (units (u nknown) date) (1.7-4.1) g/dL unknown) (unknown) (no (unknown) (unknown) Glucose (80-110) (units (unknown) date) mg/dL unknown) (unknown) (no (unknown) (unknown) Glucose 100 (units (un known) date) (80-110) mg/dL unknown) (unknown) (no (unknown) (unknown) Gout (units (unkno wn) date) unknown) (unknown) (no (unknown) (unknown) HENMT (units (unkno wn) date) unknown) (unknown) (no (unknown) (unknown) HPI - (units (unkno wn) date) Arrhythmia/Palpitat unknown) ions (unknown) (no (unknown) (unknown) HTN (hypertension) (units (unknown) date) unknown) (unknown) (no (unknown) (unknown) Hct (41-53) % (units ( unknown) date) unknown) (unknown) (no (unknown) (unknown) Hct 31.4 L (41-53) (units (unknown) date) % unknown) (unknown) (no (unknown) (unknown) Head:?normal to (units (unknown) date) inspection unknown) (unknown) (no (unknown) (unknown) Hematologic/Lympha (units (unknown) date) tic unknown) (unknown) (no (unknown) (unknown) Hematologic/Lympha (units (unknown) date) tic: Denies easy unknown) bruising (unknown) (no (unknown) (unknown) Hgb (13.5-17.5) (units (unknown) date) g/dL unknown) (unknown) (no (unknown) (unknown) Hgb 11.0 L (units (unk nown) date) (13.5-17.5) g/dL unknown) (unknown) (no (unknown) (unknown) 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 (unknown) (no (unknown) (unknown) History of (units (unk nown) date) percutaneous unknown) endoscopic gastrostomy (-2019) (unknown) (no (unknown) (unknown) INR (0.9-1.3) (units ( unknown) date) unknown) (unknown) (no (unknown) (unknown) INR 1.1 (0.9-1.3) (units (unknown) date) unknown) (unknown) (no (unknown) (unknown) Initial Vital (units ( unknown) date) Signs unknown) (unknown) (no (unknown) (unknown) Initial Vital (units ( unknown) date) Signs: unknown) (unknown) (no (unknown) (unknown) Integumentary/Veena (units (unknown) date) sts unknown) (unknown) (no (unknown) (unknown) [facility] (units (unknown) date) [address] [place] [address] unknown) [place] [address] (unknown) (no (unknown) (unknown) Lab Data (units (unkno wn) date) unknown) (unknown) (no (unknown) (unknown) Lab Results (units (un known) date) unknown) (unknown) (no (unknown) (unknown) Label Comments: (units (unknown) date) unknown) (unknown) (no (unknown) (unknown) Labs: (units (unkno wn) date) unknown) (unknown) (no (unknown) (unknown) Last Admin: (units (un known) date) 08/20/22 18:16 unknown) Dose: 324 mg (unknown) (no (unknown) (unknown) Last Admin: (units (un known) date) 08/20/22 18:32 unknown) Dose: 1 mg (unknown) (no (unknown) (unknown) Last Admin: (units (un known) date) 08/20/22 18:33 unknown) Dose: 1,000 mls/hr (unknown) (no (unknown) (unknown) Lipase (23-300) (units (unknown) date) U/L unknown) (unknown) (no (unknown) (unknown) Lipase 127 (units (unk nown) date) (23-300) U/L unknown) (unknown) (no (unknown) (unknown) Lipase Stat (units (un known) date) unknown) (unknown) (no (unknown) (unknown) Lorazepam (units (unkn own) date) (Lorazepam 2 Mg/Ml unknown) Inj) 1 mg IV NOW ONE (unknown) (no (unknown) (unknown) Lymph # (Auto) (units (unknown) date) (7042-8867) /uL unknown) (unknown) (no (unknown) (unknown) Lymph # (Auto) 500 (units (unknown) date) L (9383-4349) /uL unknown) (unknown) (no (unknown) (unknown) Lymph % (Auto) (units (unknown) date) (25-40) % unknown) (unknown) (no (unknown) (unknown) Lymph % (Auto) 7.1 (units (unknown) date) L (25-40) % unknown) (unknown) (no (unknown) (unknown) MCH (26-34) PG (units (unknown) date) unknown) (unknown) (no (unknown) (unknown) MCH 36.0 H (26-34) (units (unknown) date) PG unknown) (unknown) (no (unknown) (unknown) MCHC (30-36) % (units (unknown) date) unknown) (unknown) (no (unknown) (unknown) MCHC 34.9 (30-36) (units (unknown) date) % unknown) (unknown) (no (unknown) (unknown) MCV (80-100) fL (units (unknown) date) unknown) (unknown) (no (unknown) (unknown) MCV 103.2 H (units (un known) date) (80-100) fL unknown) (unknown) (no (unknown) (unknown) MDM - (units (unkno wn) date) Arrhythmia/Palpitat unknown) ions (unknown) (no (unknown) (unknown) Magnesium (units (unkn own) date) (1.6-2.3) mg/dL unknown) (unknown) (no (unknown) (unknown) Magnesium 1.2 L (units (unknown) date) (1.6-2.3) mg/dL unknown) (unknown) (no (unknown) (unknown) Magnesium Stat (units (unknown) date) unknown) (unknown) (no (unknown) (unknown) Medical History (units (unknown) date) (Reviewed 12/25/21 unknown) @ 16:19 by Pop Delgado PA-C) (unknown) (no (unknown) (unknown) Medication (units (unk nown) date) Instructions unknown) Recorded (unknown) (no (unknown) (unknown) Mixed (units (unkno wn) date) hyperlipidemia unknown) (unknown) (no (unknown) (unknown) Mode of arrival: (units (unknown) date) Wheelchair unknown) (unknown) (no (unknown) (unknown) [place] # (Auto) (units ( unknown) date) (0-900) /uL unknown) (unknown) (no (unknown) (unknown) [place] # (Auto) 600 (units (unknown) date) (0-900) /uL unknown) (unknown) (no (unknown) (unknown) [place] % (Auto) (units ( unknown) date) (3-14) % unknown) (unknown) (no (unknown) (unknown) [place] % (Auto) 8.1 (units (unknown) date) (3-14) % unknown) (unknown) (no (unknown) (unknown) Mother Lung cancer (units (unknown) date) unknown) (unknown) (no (unknown) (unknown) Mouth:?oral (units (un known) date) mucosae normal unknown) (unknown) (no (unknown) (unknown) Musculoskeletal (units (unknown) date) unknown) (unknown) (no (unknown) (unknown) Musculoskeletal: (units (unknown) date) Denies back pain, unknown) Denies muscle weakness, Reports neck pain, (unknown) (no (unknown) (unknown) Narrative (units (unkn own) date) unknown) (unknown) (no (unknown) (unknown) Neck (units (unkno wn) date) unknown) (unknown) (no (unknown) (unknown) Neck:?normal (units (u nknown) date) visual inspection unknown) and no lymphadenopathy noted (unknown) (no (unknown) (unknown) Neuro (units (unkno wn) date) unknown) (unknown) (no (unknown) (unknown) Neurologic (units (unk nown) date) unknown) (unknown) (no (unknown) (unknown) Neurologic: Denies (units (unknown) date) behavioral changes, unknown) Reports confusion, Denies dizziness, (unknown) (no (unknown) (unknown) Neut # (Auto) (units ( unknown) date) (1054-3749) /uL unknown) (unknown) (no (unknown) (unknown) Neut # (Auto) 6200 (units (unknown) date) (4436-5993) /uL unknown) (unknown) (no (unknown) (unknown) Neut % (Auto) (units ( unknown) date) (50-75) % unknown) (unknown) (no (unknown) (unknown) Neut % (Auto) 84.3 (units (unknown) date) H (50-75) % unknown) (unknown) (no (unknown) (unknown) No Action (units (unkn own) date) unknown) (unknown) (no (unknown) (unknown) Nose:?external (units (unknown) date) nose normal unknown) (unknown) (no (unknown) (unknown) Ordered: (units (unkno wn) date) unknown) (unknown) (no (unknown) (unknown) Orders (units (unkno wn) date) unknown) (unknown) (no (unknown) (unknown) Oxygen Delivery (units (unknown) date) Method 08/20/22 unknown) 17:29 (unknown) (no (unknown) (unknown) Oxygen Delivery (units (unknown) date) Method Room Air unknown) Room Air (unknown) (no (unknown) (unknown) Oxygen Delivery (units (unknown) date) Method Room Air unknown) (unknown) (no (unknown) (unknown) PT (10.1-12.7) (units (unknown) date) SECONDS unknown) (unknown) (no (unknown) (unknown) PT 12.7 (units (unkno wn) date) (10.1-12.7) SECONDS unknown) (unknown) (no (unknown) (unknown) Partial (units (unkno wn) date) Thromboplastin Time unknown) Stat (unknown) (no (unknown) (unknown) Patient History (units (unknown) date) unknown) (unknown) (no (unknown) (unknown) Patient: (units (unkno wn) date) Eleazar Charles unknown) MR#: [id number] (unknown) (no (unknown) (unknown) Plt Count (units (unkn own) date) (150-400) X103/uL unknown) (unknown) (no (unknown) (unknown) Plt Count 107 L (units (unknown) date) (150-400) X103/uL unknown) (unknown) (no (unknown) (unknown) Potassium (units (unkn own) date) (3.4-5.1) mmol/L unknown) (unknown) (no (unknown) (unknown) Potassium 4.8 (units ( unknown) date) (3.4-5.1) mmol/L unknown) (unknown) (no (unknown) (unknown) Prescriptions: (units (unknown) date) unknown) (unknown) (no (unknown) (unknown) Previous Rx's (units ( unknown) date) unknown) (unknown) (no (unknown) (unknown) Prothrombin Time (units (unknown) date) INR Stat unknown) (unknown) (no (unknown) (unknown) Psychiatric (units (un known) date) unknown) (unknown) (no (unknown) (unknown) Psychiatric: (units (u nknown) date) Denies anxiety, unknown) Denies behavioral changes, Reports confusion, (unknown) (no (unknown) (unknown) Pt reports taking (units (unknown) date) every other day, at unknown) best. Also stated' only takes 2 pills, (unknown) (no (unknown) (unknown) Pulse Oximetry 93 (units (unknown) date) 08/20/22 17:29 unknown) (unknown) (no (unknown) (unknown) Pulse Oximetry 93 (units (unknown) date) 96 unknown) (unknown) (no (unknown) (unknown) Pulse Oximetry 98 (units (unknown) date) unknown) (unknown) (no (unknown) (unknown) Pulse Rate 88 (units ( unknown) date) unknown) (unknown) (no (unknown) (unknown) Pulse Rate 96 H (units (unknown) date) 08/20/22 17:29 unknown) (unknown) (no (unknown) (unknown) Pulse Rate 96 H 88 (units (unknown) date) unknown) (unknown) (no (unknown) (unknown) RBC (4.5-5.9) (units ( unknown) date) X106/uL unknown) (unknown) (no (unknown) (unknown) RBC 3.05 L (units (unk nown) date) (4.5-5.9) X106/uL unknown) (unknown) (no (unknown) (unknown) RDW (11.6-14.8) % (units (unknown) date) unknown) (unknown) (no (unknown) (unknown) RDW 13.7 (units (unkno wn) date) (11.6-14.8) % unknown) (unknown) (no (unknown) (unknown) ROS Unobtainable: (units (unknown) date) All systems unknown) reviewed + are unremarkable except as noted in HPI (unknown) (no (unknown) (unknown) Rate:?regular rate (units (unknown) date) unknown) (unknown) (no (unknown) (unknown) Referrals: (units (unk nown) date) unknown) (unknown) (no (unknown) (unknown) Related Data (units (u nknown) date) unknown) (unknown) (no (unknown) (unknown) Resp (units (unkno wn) date) unknown) (unknown) (no (unknown) (unknown) Respiratory Rate (units (unknown) date) 20 08/20/22 17:29 unknown) (unknown) (no (unknown) (unknown) Respiratory Rate (units (unknown) date) 20 21 unknown) (unknown) (no (unknown) (unknown) Respiratory Rate (units (unknown) date) 21 unknown) (unknown) (no (unknown) (unknown) Respiratory (units (un known) date) unknown) (unknown) (no (unknown) (unknown) Respiratory: Denies (units (unknown) date) cough, Denies unknown) dyspnea, Denies dyspnea on exertion and Denies (unknown) (no (unknown) (unknown) Review of Systems (units (unknown) date) unknown) (unknown) (no (unknown) (unknown) Rhythm:?regular (units (unknown) date) rhythm unknown) (unknown) (no (unknown) (unknown) Signed By: (units (unk nown) date) unknown) (unknown) (no (unknown) (unknown) Sister Rheumatoid (units (unknown) date) arthritis unknown) (unknown) (no (unknown) (unknown) Skin/Breast: (units (u nknown) date) Denies pruritus, unknown) Denies erythema, Denies rash and Denies wounds (unknown) (no (unknown) (unknown) Smoking Status: (units (unknown) date) Former smoker unknown) (unknown) (no (unknown) (unknown) Social History (units (unknown) date) (Reviewed 12/25/21 unknown) @ 16:19 by Pop Delgado PA-C) (unknown) (no (unknown) (unknown) Sodium (137-145) (units (unknown) date) mmol/L unknown) (unknown) (no (unknown) (unknown) Sodium 130 L (units (u nknown) date) (137-145) mmol/L unknown) (unknown) (no (unknown) (unknown) Sodium Chloride (units (unknown) date) (Normal Saline unknown) 0.9%) 1,000 mls @ 1,000 mls/hr IV BOLUS ONE (unknown) (no (unknown) (unknown) Source: patient (units (unknown) date) unknown) (unknown) (no (unknown) (unknown) Stated Complaint: (units (unknown) date) a-fib/passed out unknown) this morning (unknown) (no (unknown) (unknown) Stop: 08/20/22 (units (unknown) date) 17:37 unknown) (unknown) (no (unknown) (unknown) Stop: 08/20/22 (units (unknown) date) 18:21 unknown) (unknown) (no (unknown) (unknown) Stop: 08/20/22 (units (unknown) date) 19:20 unknown) (unknown) (no (unknown) (unknown) Substance Use (units ( unknown) date) Type: does not use unknown) (unknown) (no (unknown) (unknown) Surgical History (units (unknown) date) (Reviewed 12/25/21 unknown) @ 16:19 by Pop Delgado PA-C) (unknown) (no (unknown) (unknown) Temperature 98.6 F (units (unknown) date) 08/20/22 17:29 unknown) (unknown) (no (unknown) (unknown) Temperature 98.6 F (units (unknown) date) unknown) (unknown) (no (unknown) (unknown) Temperature (units (un known) date) unknown) (unknown) (no (unknown) (unknown) Throat:?posterior (units (unknown) date) oropharynx normal unknown) (unknown) (no (unknown) (unknown) Time Seen by (units (u nknown) date) Provider: 08/20/22 unknown) 17:36 (unknown) (no (unknown) (unknown) Total Bilirubin (units (unknown) date) (0.2-1.3) mg/dL unknown) (unknown) (no (unknown) (unknown) Total Bilirubin (units (unknown) date) 1.3 (0.2-1.3) mg/dL unknown) (unknown) (no (unknown) (unknown) Total Creatine (units (unknown) date) Kinase (55-170) U/L unknown) (unknown) (no (unknown) (unknown) Total Creatine (units (unknown) date) Kinase 144 (55-170) unknown) U/L (unknown) (no (unknown) (unknown) Total Protein (units ( unknown) date) (6.3-8.2) g/dL unknown) (unknown) (no (unknown) (unknown) Total Protein 6.6 (units (unknown) date) (6.3-8.2) g/dL unknown) (unknown) (no (unknown) (unknown) Troponin + CK (units ( unknown) date) Cardiac Panel Stat unknown) (unknown) (no (unknown) (unknown) Troponin I (units (unk nown) date) (0.01-0.034) ng/mL unknown) (unknown) (no (unknown) (unknown) Troponin I 0.013 (units (unknown) date) (0.01-0.034) ng/mL unknown) (unknown) (no (unknown) (unknown) Urine Dip (units (unkn own) date) unknown) (unknown) (no (unknown) (unknown) Urine Microscopic (units (unknown) date) Stat unknown) (unknown) (no (unknown) (unknown) Urine Specific (units (unknown) date) [place] 1.010 unknown) (unknown) (no (unknown) (unknown) Vital Signs - 8 hr (units (unknown) date) unknown) (unknown) (no (unknown) (unknown) Vital Signs (units (un known) date) unknown) (unknown) (no (unknown) (unknown) Vital signs: (units (u nknown) date) unknown) (unknown) (no (unknown) (unknown) WBC (4.5-11.0) (units (unknown) date) X103/uL unknown) (unknown) (no (unknown) (unknown) WBC 7.4 (4.5-11.0) (units (unknown) date) X103/uL unknown) (unknown) (no (unknown) (unknown) XR chest 1V Stat (units (unknown) date) unknown) (unknown) (no (unknown) (unknown) [Embedded Image (units (unknown) date) Not Available] unknown) (unknown) (no (unknown) (unknown) alcohol intake (units (unknown) date) frequency: 3 or unknown) more drinks per day (unknown) (no (unknown) (unknown) alcohol intake: (units (unknown) date) current unknown) (unknown) (no (unknown) (unknown) amoxicillin (units (un known) date) [AMOXICILLIN] unknown) Allergy Severe SWOLLEN JAW Verified 08/20/22 17:41 (unknown) (no (unknown) (unknown) and Denies (units (unk nown) date) orthopnea unknown) (unknown) (no (unknown) (unknown) and Denies urinary (units (unknown) date) urgency unknown) (unknown) (no (unknown) (unknown) and below (units (unkn own) date) unknown) (unknown) (no (unknown) (unknown) clindamycin (units (un known) date) [CLINDAMYCIN] unknown) AdvReac Severe C-DIFF Verified 08/20/22 17:41 (unknown) (no (unknown) (unknown) diarrhea, Denies (units (unknown) date) nausea and Denies unknown) vomiting (unknown) (no (unknown) (unknown) falls, Denies (units ( unknown) date) lethargy, Reports unknown) poor appetite and Denies weakness (unknown) (no (unknown) (unknown) furosemide 20 mg (units (unknown) date) tablet 10 mg PO QAM unknown) #45 tabs 12/15/21 (unknown) (no (unknown) (unknown) furosemide 20 mg (units (unknown) date) tablet unknown) (unknown) (no (unknown) (unknown) household members: (units (unknown) date) none unknown) (unknown) (no (unknown) (unknown) inital exam (units (un known) date) unknown) (unknown) (no (unknown) (unknown) lightheadedness, (units (unknown) date) Denies unknown) palpitations, Denies dyspnea, Denies dyspnea on exertion (unknown) (no (unknown) (unknown) marital status: (units (unknown) date) unknown) (unknown) (no (unknown) (unknown) metoprolol (units (unk nown) date) succinate 25 mg 25 unknown) mg PO DAILY #30 tabs 10/30/21 (unknown) (no (unknown) (unknown) metoprolol (units (unk nown) date) succinate 25 mg unknown) tablet extended release 24 hr (unknown) (no (unknown) (unknown) neck pain, Denies (units (unknown) date) sore throat and unknown) Denies throat swelling (unknown) (no (unknown) (unknown) numbness, Denies (units (unknown) date) tingling and Denies unknown) weakness (unknown) (no (unknown) (unknown) occupational (units (u nknown) date) status: previously unknown) employed (unknown) (no (unknown) (unknown) since it RX'd'. (units (unknown) date) unknown) (unknown) (no (unknown) (unknown) substance use (units ( unknown) date) type: does not use unknown) (unknown) (no (unknown) (unknown) suicidal ideation (units (unknown) date) unknown) (unknown) (no (unknown) (unknown) tablet,extended (units (unknown) date) release 24 hr unknown) (unknown) (no (unknown) (unknown) wheezing (units (unkno wn) date) unknown) Result panel 920 (unknown) (no (unknown) (unknown) (no value) (units (unk nown) date) unknown) (unknown) (no (unknown) (unknown) 08/20/22 08/20/22 (units (unknown) date) 08/20/22 unknown) Range/Units (unknown) (no (unknown) (unknown) 08/20/22 17:35 (units (unknown) date) unknown) (unknown) (no (unknown) (unknown) 08/20/22 17:36 (units (unknown) date) unknown) (unknown) (no (unknown) (unknown) 08/20/22 17:49 (units (unknown) date) unknown) (unknown) (no (unknown) (unknown) 08/20/22 18:41 (units (unknown) date) unknown) (unknown) (no (unknown) (unknown) 08/20/22 18:42 (units (unknown) date) unknown) (unknown) (no (unknown) (unknown) 08/20/22 18:43 (units (unknown) date) unknown) (unknown) (no (unknown) (unknown) 08/20/22 (units (unkno wn) date) Range/Units unknown) (unknown) (no (unknown) (unknown) 08/20/22 (units (unkno wn) date) unknown) (unknown) (no (unknown) (unknown) [id number] (units (unkno wn) date) unknown) (unknown) (no (unknown) (unknown) 10 mg PO QAM Qty: (units (unknown) date) 45 1RF unknown) (unknown) (no (unknown) (unknown) 17:29 08/20/22 (units (unknown) date) unknown) (unknown) (no (unknown) (unknown) 17:32 08/20/22 (units (unknown) date) unknown) (unknown) (no (unknown) (unknown) 17:35 17:35 17:35 (units (unknown) date) unknown) (unknown) (no (unknown) (unknown) 17:35 (units (unkno wn) date) unknown) (unknown) (no (unknown) (unknown) 17:55 08/20/22 (units (unknown) date) unknown) (unknown) (no (unknown) (unknown) 17:55 (units (unkno wn) date) unknown) (unknown) (no (unknown) (unknown) 18:00 08/20/22 (units (unknown) date) unknown) (unknown) (no (unknown) (unknown) 18:00 (units (unkno wn) date) unknown) (unknown) (no (unknown) (unknown) 25 mg PO DAILY (units (unknown) date) Qty: 30 0RF unknown) (unknown) (no (unknown) (unknown) 76-year-old male (units (unknown) date) with past medical unknown) history AFib, alcohol use disorder, alcohol (unknown) (no (unknown) (unknown) ALT (<50) IU/L (units (unknown) date) unknown) (unknown) (no (unknown) (unknown) ALT 40 (<50) IU/L (units (unknown) date) unknown) (unknown) (no (unknown) (unknown) APTT (26-36) (units (u nknown) date) SECONDS unknown) (unknown) (no (unknown) (unknown) APTT 27 (26-36) (units (unknown) date) SECONDS unknown) (unknown) (no (unknown) (unknown) AST (17-59) IU/L (units (unknown) date) unknown) (unknown) (no (unknown) (unknown) AST 57 (17-59) (units (unknown) date) IU/L unknown) (unknown) (no (unknown) (unknown) Age/Sex: 76 / M (units (unknown) date) unknown) (unknown) (no (unknown) (unknown) Albumin (3.5-5.0) (units (unknown) date) g/dL unknown) (unknown) (no (unknown) (unknown) Albumin 4.1 (units (un known) date) (3.5-5.0) g/dL unknown) (unknown) (no (unknown) (unknown) Albumin/Globulin (units (unknown) date) Ratio (1.0-2.8) unknown) (unknown) (no (unknown) (unknown) Albumin/Globulin (units (unknown) date) Ratio 1.6 (1.0-2.8) unknown) (unknown) (no (unknown) (unknown) Alcohol abuse (units ( unknown) date) unknown) (unknown) (no (unknown) (unknown) Alcohol type: (units ( unknown) date) beer, wine and hard unknown) liquor (unknown) (no (unknown) (unknown) Alcohol withdrawal (units (unknown) date) delirium unknown) (unknown) (no (unknown) (unknown) Alcohol withdrawal (units (unknown) date) unknown) (unknown) (no (unknown) (unknown) Alkaline (units (unkno wn) date) Phosphatase unknown) (38-126) U/L (unknown) (no (unknown) (unknown) Alkaline (units (unkno wn) date) Phosphatase 67 unknown) (38-126) U/L (unknown) (no (unknown) (unknown) Allergic/Immunolog (units (unknown) date) ic unknown) (unknown) (no (unknown) (unknown) Allergic/Immunolog (units (unknown) date) ic: Denies unknown) urticaria, Denies throat swelling and Denies (unknown) (no (unknown) (unknown) Allergies (units (unkn own) date) unknown) (unknown) (no (unknown) (unknown) Allergy/AdvReac (units (unknown) date) Type Severity unknown) Reaction Status Date / Time (unknown) (no (unknown) (unknown) Anemia, chronic (units (unknown) date) disease unknown) (unknown) (no (unknown) (unknown) Aspirin (Aspirin (units (unknown) date) 81 Mg Chew Tab) 324 unknown) mg PO NOW ONE (unknown) (no (unknown) (unknown) Atrial (units (unkno wn) date) fibrillation unknown) (unknown) (no (unknown) (unknown) Auscultation:?leigh (units (unknown) date) r to auscultation unknown) bilaterally (unknown) (no (unknown) (unknown) BPH w urinary (units ( unknown) date) obs/LUTS unknown) (unknown) (no (unknown) (unknown) BUN (9-20) mg/dL (units (unknown) date) unknown) (unknown) (no (unknown) (unknown) BUN 16 (9-20) (units ( unknown) date) mg/dL unknown) (unknown) (no (unknown) (unknown) BUN/Creatinine (units (unknown) date) Ratio (6-22) unknown) (unknown) (no (unknown) (unknown) BUN/Creatinine (units (unknown) date) Ratio 15.2 (6-22) unknown) (unknown) (no (unknown) (unknown) Baso # (Auto) (units ( unknown) date) (0-100) /uL unknown) (unknown) (no (unknown) (unknown) Baso # (Auto) 0 (units (unknown) date) (0-100) /uL unknown) (unknown) (no (unknown) (unknown) Baso % (Auto) (units ( unknown) date) (0-2) % unknown) (unknown) (no (unknown) (unknown) Baso % (Auto) 0.4 (units (unknown) date) (0-2) % unknown) (unknown) (no (unknown) (unknown) Bedside Urine (units ( unknown) date) Bilirubin - unknown) Negative (unknown) (no (unknown) (unknown) Bedside Urine (units ( unknown) date) Glucose Negative unknown) (unknown) (no (unknown) (unknown) Bedside Urine (units ( unknown) date) Ketone - Negative unknown) (unknown) (no (unknown) (unknown) Bedside Urine (units ( unknown) date) Leukocytes - unknown) Negative (unknown) (no (unknown) (unknown) Bedside Urine (units ( unknown) date) Nitrite - Negative unknown) (unknown) (no (unknown) (unknown) Bedside Urine (units ( unknown) date) Occult Blood +/ unknown) (unknown) (no (unknown) (unknown) Bedside Urine (units ( unknown) date) Protein - Negative unknown) (unknown) (no (unknown) (unknown) Bedside Urine (units ( unknown) date) Urobilinogen - unknown) Negative (unknown) (no (unknown) (unknown) Bedside Urine pH (units (unknown) date) 6.5 unknown) (unknown) (no (unknown) (unknown) Blood Pressure (units (unknown) date) 110/79 126/82 unknown) (unknown) (no (unknown) (unknown) Blood Pressure (units (unknown) date) 114/70 08/20/22 unknown) 17:29 (unknown) (no (unknown) (unknown) Blood Pressure (units (unknown) date) 114/70 114/ unknown) (unknown) (no (unknown) (unknown) CT cervical spine (units (unknown) date) wo con Stat unknown) (unknown) (no (unknown) (unknown) CT chest wo con (units (unknown) date) Stat unknown) (unknown) (no (unknown) (unknown) CT head/brain wo (units (unknown) date) con Stat unknown) (unknown) (no (unknown) (unknown) Calcium (8.4-10.2) (units (unknown) date) mg/dL unknown) (unknown) (no (unknown) (unknown) Calcium 8.7 (units (un known) date) (8.4-10.2) mg/dL unknown) (unknown) (no (unknown) (unknown) Carbon Dioxide (units (unknown) date) (22-32) mmol/L unknown) (unknown) (no (unknown) (unknown) Carbon Dioxide 24 (units (unknown) date) (22-32) mmol/L unknown) (unknown) (no (unknown) (unknown) Cardio (units (unkno wn) date) unknown) (unknown) (no (unknown) (unknown) Cardiomyopathy (units (unknown) date) unknown) (unknown) (no (unknown) (unknown) Cardiovascular (units (unknown) date) unknown) (unknown) (no (unknown) (unknown) Cardiovascular: (units (unknown) date) Denies chest pain, unknown) Reports irregular heart rhythm, Denies (unknown) (no (unknown) (unknown) Chief Complaint: (units (unknown) date) Arrhythmia/Palpitat unknown) ions (unknown) (no (unknown) (unknown) Chloride (98-107) (units (unknown) date) mmol/L unknown) (unknown) (no (unknown) (unknown) Chloride 97 L (units ( unknown) date) (98-107) mmol/L unknown) (unknown) (no (unknown) (unknown) Complete Blood (units (unknown) date) Count AUTO DIFF unknown) Stat (unknown) (no (unknown) (unknown) Comprehensive (units ( unknown) date) Metabolic Panel unknown) Stat (unknown) (no (unknown) (unknown) Const (units (unkno wn) date) unknown) (unknown) (no (unknown) (unknown) Constitutional (units (unknown) date) unknown) (unknown) (no (unknown) (unknown) Constitutional: (units (unknown) date) Denies chills, unknown) Denies fatigue, Denies fever(s), Denies frequent (unknown) (no (unknown) (unknown) Course (units (unkno wn) date) unknown) (unknown) (no (unknown) (unknown) Creatinine (units (unk nown) date) (0.66-1.25) mg/dL unknown) (unknown) (no (unknown) (unknown) Creatinine 1.05 (units (unknown) date) (0.66-1.25) mg/dL unknown) (unknown) (no (unknown) (unknown) : 1945 (units (unknown) date) Acct:[id number] unknown) (unknown) (no (unknown) (unknown) Date of Service: (units (unknown) date) 08/20/22 unknown) (unknown) (no (unknown) (unknown) Denies depression, (units (unknown) date) Reports memory unknown) loss, Denies homicidal ideation and Denies (unknown) (no (unknown) (unknown) Denies frequent (units (unknown) date) falls, Denies loss unknown) of vision, Reports memory loss, Denies (unknown) (no (unknown) (unknown) Denies loss of (units (unknown) date) vision unknown) (unknown) (no (unknown) (unknown) Denies numbness (units (unknown) date) and Denies tingling unknown) (unknown) (no (unknown) (unknown) Departure (units (unkn own) date) unknown) (unknown) (no (unknown) (unknown) Discharge Plan (units (unknown) date) unknown) (unknown) (no (unknown) (unknown) Discontinued (units (u nknown) date) Medications unknown) (unknown) (no (unknown) (unknown) Documented By: MLM (units (unknown) date) unknown) (unknown) (no (unknown) (unknown) ED Orders (units (unkn own) date) unknown) (unknown) (no (unknown) (unknown) EKG-12 Lead Stat (units (unknown) date) unknown) (unknown) (no (unknown) (unknown) ENT (units (unkno wn) date) unknown) (unknown) (no (unknown) (unknown) ER Physician: (units ( unknown) date) Sascha,Hyma P.A-C unknown) (unknown) (no (unknown) (unknown) Ears, Nose, Mouth, (units (unknown) date) and Throat: Denies unknown) change in voice, Denies dizziness, Reports (unknown) (no (unknown) (unknown) Ears:?hearing (units ( unknown) date) grossly normal unknown) bilaterally (unknown) (no (unknown) (unknown) Effort + (units (unkno wn) date) Inspection:?normal unknown) respiratory effort (unknown) (no (unknown) (unknown) Emergency Report (units (unknown) date) unknown) (unknown) (no (unknown) (unknown) Endocrine (units (unkn own) date) unknown) (unknown) (no (unknown) (unknown) Endocrine: Denies (units (unknown) date) fatigue, Denies unknown) flushing and Denies palpitations (unknown) (no (unknown) (unknown) Eos # (Auto) (units (u nknown) date) (0-450) /uL unknown) (unknown) (no (unknown) (unknown) Eos # (Auto) 0 (units (unknown) date) (0-450) /uL unknown) (unknown) (no (unknown) (unknown) Eos % (Auto) (2-4) (units (unknown) date) % unknown) (unknown) (no (unknown) (unknown) Eos % (Auto) 0.1 L (units (unknown) date) (2-4) % unknown) (unknown) (no (unknown) (unknown) Esterase (units (unkno wn) date) unknown) (unknown) (no (unknown) (unknown) Estimated GFR > 60 (units (unknown) date) (>60) mL/min unknown) (unknown) (no (unknown) (unknown) Estimated GFR (units ( unknown) date) (>60) mL/min unknown) (unknown) (no (unknown) (unknown) Ethanol (ETOH) (units (unknown) date) Stat unknown) (unknown) (no (unknown) (unknown) Ethyl Alcohol < 10 (units (unknown) date) ( - 10) mg/dL unknown) (unknown) (no (unknown) (unknown) Ethyl Alcohol ( - (units (unknown) date) 10) mg/dL unknown) (unknown) (no (unknown) (unknown) Exam Narrative: (units (unknown) date) unknown) (unknown) (no (unknown) (unknown) Exam (units (unkno wn) date) unknown) (unknown) (no (unknown) (unknown) Eyes (units (unkno wn) date) unknown) (unknown) (no (unknown) (unknown) Eyes: Denies (units (u nknown) date) change in vision, unknown) Denies eye discharge, Denies irritation and (unknown) (no (unknown) (unknown) Face and (units (unkno wn) date) sinus:?normal unknown) facial exam and sinuses nontender (unknown) (no (unknown) (unknown) Family History (units (unknown) date) (Reviewed 12/25/21 unknown) @ 16:19 by Pop Delgado PA-C) (unknown) (no (unknown) (unknown) Former smoker (units ( unknown) date) unknown) (unknown) (no (unknown) (unknown) Jeannette Chaudhary, (units (unknown) date) MD [Primary Care unknown) Provider] (unknown) (no (unknown) (unknown) Gastrointestinal (units (unknown) date) unknown) (unknown) (no (unknown) (unknown) Gastrointestinal: (units (unknown) date) Denies abdominal unknown) pain, Denies change in bowel habits, Denies (unknown) (no (unknown) (unknown) General (units (unkno wn) date) unknown) (unknown) (no (unknown) (unknown) General:?appearanc (units (unknown) date) e normal, both eyes unknown) and all related structures (unknown) (no (unknown) (unknown) General:?cooperati (units (unknown) date) ve, healthy unknown) appearing and comfortable (unknown) (no (unknown) (unknown) General:?patient (units (unknown) date) alert, patient unknown) awake and patient oriented x3; CIWA score 9 on (unknown) (no (unknown) (unknown) Genitourinary (units ( unknown) date) unknown) (unknown) (no (unknown) (unknown) Genitourinary: (units (unknown) date) Denies hematuria, unknown) Denies flank pain, Denies urinary incontinence (unknown) (no (unknown) (unknown) Globulin (1.7-4.1) (units (unknown) date) g/dL unknown) (unknown) (no (unknown) (unknown) Globulin 2.5 (units (u nknown) date) (1.7-4.1) g/dL unknown) (unknown) (no (unknown) (unknown) Glucose (80-110) (units (unknown) date) mg/dL unknown) (unknown) (no (unknown) (unknown) Glucose 100 (units (un known) date) (80-110) mg/dL unknown) (unknown) (no (unknown) (unknown) Gout (units (unkno wn) date) unknown) (unknown) (no (unknown) (unknown) HENMT (units (unkno wn) date) unknown) (unknown) (no (unknown) (unknown) HPI - (units (unkno wn) date) Arrhythmia/Palpitat unknown) ions (unknown) (no (unknown) (unknown) HPI narrative: (units (unknown) date) unknown) (unknown) (no (unknown) (unknown) HTN (hypertension) (units (unknown) date) unknown) (unknown) (no (unknown) (unknown) Hct (41-53) % (units ( unknown) date) unknown) (unknown) (no (unknown) (unknown) Hct 31.4 L (41-53) (units (unknown) date) % unknown) (unknown) (no (unknown) (unknown) Head:?normal to (units (unknown) date) inspection unknown) (unknown) (no (unknown) (unknown) Hematologic/Lympha (units (unknown) date) tic unknown) (unknown) (no (unknown) (unknown) Hematologic/Lympha (units (unknown) date) tic: Denies easy unknown) bruising (unknown) (no (unknown) (unknown) Hgb (13.5-17.5) (units (unknown) date) g/dL unknown) (unknown) (no (unknown) (unknown) Hgb 11.0 L (units (unk nown) date) (13.5-17.5) g/dL unknown) (unknown) (no (unknown) (unknown) History of Present (units (unknown) date) Illness unknown) (unknown) (no (unknown) (unknown) 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 (unknown) (no (unknown) (unknown) History of (units (unk nown) date) percutaneous unknown) endoscopic gastrostomy (-2019) (unknown) (no (unknown) (unknown) INR (0.9-1.3) (units ( unknown) date) unknown) (unknown) (no (unknown) (unknown) INR 1.1 (0.9-1.3) (units (unknown) date) unknown) (unknown) (no (unknown) (unknown) Initial Vital (units ( unknown) date) Signs unknown) (unknown) (no (unknown) (unknown) Initial Vital (units ( unknown) date) Signs: unknown) (unknown) (no (unknown) (unknown) Integumentary/[place] (units (unknown) date) sts unknown) (unknown) (no (unknown) (unknown) [facility] (units (unknown) date) [address] unknown) [place] [address] (unknown) (no (unknown) (unknown) Lab Data (units (unkno wn) date) unknown) (unknown) (no (unknown) (unknown) Lab Results (units (un known) date) unknown) (unknown) (no (unknown) (unknown) Label Comments: (units (unknown) date) unknown) (unknown) (no (unknown) (unknown) Labs: (units (unkno wn) date) unknown) (unknown) (no (unknown) (unknown) Last Admin: (units (un known) date) 08/20/22 18:16 unknown) Dose: 324 mg (unknown) (no (unknown) (unknown) Last Admin: (units (un known) date) 08/20/22 18:32 unknown) Dose: 1 mg (unknown) (no (unknown) (unknown) Last Admin: (units (un known) date) 08/20/22 18:33 unknown) Dose: 1,000 mls/hr (unknown) (no (unknown) (unknown) Lipase (23-300) (units (unknown) date) U/L unknown) (unknown) (no (unknown) (unknown) Lipase 127 (units (unk nown) date) (23-300) U/L unknown) (unknown) (no (unknown) (unknown) Lipase Stat (units (un known) date) unknown) (unknown) (no (unknown) (unknown) Lorazepam (units (unkn own) date) (Lorazepam 2 Mg/Ml unknown) Inj) 1 mg IV NOW ONE (unknown) (no (unknown) (unknown) Lymph # (Auto) (units (unknown) date) (8863-5103) /uL unknown) (unknown) (no (unknown) (unknown) Lymph # (Auto) 500 (units (unknown) date) L (4648-9092) /uL unknown) (unknown) (no (unknown) (unknown) Lymph % (Auto) (units (unknown) date) (25-40) % unknown) (unknown) (no (unknown) (unknown) Lymph % (Auto) 7.1 (units (unknown) date) L (25-40) % unknown) (unknown) (no (unknown) (unknown) MCH (26-34) PG (units (unknown) date) unknown) (unknown) (no (unknown) (unknown) MCH 36.0 H (26-34) (units (unknown) date) PG unknown) (unknown) (no (unknown) (unknown) MCHC (30-36) % (units (unknown) date) unknown) (unknown) (no (unknown) (unknown) MCHC 34.9 (30-36) (units (unknown) date) % unknown) (unknown) (no (unknown) (unknown) MCV (80-100) fL (units (unknown) date) unknown) (unknown) (no (unknown) (unknown) MCV 103.2 H (units (un known) date) (80-100) fL unknown) (unknown) (no (unknown) (unknown) MDM - (units (unkno wn) date) Arrhythmia/Palpitat unknown) ions (unknown) (no (unknown) (unknown) Magnesium (units (unkn own) date) (1.6-2.3) mg/dL unknown) (unknown) (no (unknown) (unknown) Magnesium 1.2 L (units (unknown) date) (1.6-2.3) mg/dL unknown) (unknown) (no (unknown) (unknown) Magnesium Stat (units (unknown) date) unknown) (unknown) (no (unknown) (unknown) Medical History (units (unknown) date) (Reviewed 12/25/21 unknown) @ 16:19 by Pop Delgado PA-C) (unknown) (no (unknown) (unknown) Medication (units (unk nown) date) Instructions unknown) Recorded (unknown) (no (unknown) (unknown) Mixed (units (unkno wn) date) hyperlipidemia unknown) (unknown) (no (unknown) (unknown) Mode of arrival: (units (unknown) date) Wheelchair unknown) (unknown) (no (unknown) (unknown) [place] # (Auto) (units ( unknown) date) (0-900) /uL unknown) (unknown) (no (unknown) (unknown) [place] # (Auto) 600 (units (unknown) date) (0-900) /uL unknown) (unknown) (no (unknown) (unknown) [place] % (Auto) (units ( unknown) date) (3-14) % unknown) (unknown) (no (unknown) (unknown) [place] % (Auto) 8.1 (units (unknown) date) (3-14) % unknown) (unknown) (no (unknown) (unknown) Mother Lung cancer (units (unknown) date) unknown) (unknown) (no (unknown) (unknown) Mouth:?oral (units (un known) date) mucosae normal unknown) (unknown) (no (unknown) (unknown) Musculoskeletal (units (unknown) date) unknown) (unknown) (no (unknown) (unknown) Musculoskeletal: (units (unknown) date) Denies back pain, unknown) Denies muscle weakness, Reports neck pain, (unknown) (no (unknown) (unknown) Narrative (units (unkn own) date) unknown) (unknown) (no (unknown) (unknown) Neck (units (unkno wn) date) unknown) (unknown) (no (unknown) (unknown) Neck:?normal (units (u nknown) date) visual inspection unknown) and no lymphadenopathy noted (unknown) (no (unknown) (unknown) Neuro (units (unkno wn) date) unknown) (unknown) (no (unknown) (unknown) Neurologic (units (unk nown) date) unknown) (unknown) (no (unknown) (unknown) Neurologic: Denies (units (unknown) date) behavioral changes, unknown) Reports confusion, Denies dizziness, (unknown) (no (unknown) (unknown) Neut # (Auto) (units ( unknown) date) (0228-3291) /uL unknown) (unknown) (no (unknown) (unknown) Neut # (Auto) 6200 (units (unknown) date) (6452-4094) /uL unknown) (unknown) (no (unknown) (unknown) Neut % (Auto) (units ( unknown) date) (50-75) % unknown) (unknown) (no (unknown) (unknown) Neut % (Auto) 84.3 (units (unknown) date) H (50-75) % unknown) (unknown) (no (unknown) (unknown) No Action (units (unkn own) date) unknown) (unknown) (no (unknown) (unknown) Nose:?external (units (unknown) date) nose normal unknown) (unknown) (no (unknown) (unknown) Ordered: (units (unkno wn) date) unknown) (unknown) (no (unknown) (unknown) Orders (units (unkno wn) date) unknown) (unknown) (no (unknown) (unknown) Oxygen Delivery (units (unknown) date) Method 08/20/22 unknown) 17:29 (unknown) (no (unknown) (unknown) Oxygen Delivery (units (unknown) date) Method Room Air unknown) Room Air (unknown) (no (unknown) (unknown) Oxygen Delivery (units (unknown) date) Method Room Air unknown) (unknown) (no (unknown) (unknown) PT (10.1-12.7) (units (unknown) date) SECONDS unknown) (unknown) (no (unknown) (unknown) PT 12.7 (units (unkno wn) date) (10.1-12.7) SECONDS unknown) (unknown) (no (unknown) (unknown) Partial (units (unkno wn) date) Thromboplastin Time unknown) Stat (unknown) (no (unknown) (unknown) Patient History (units (unknown) date) unknown) (unknown) (no (unknown) (unknown) Patient: (units (unkno wn) date) Eleazar Charles unknown) MR#: [id number] (unknown) (no (unknown) (unknown) Plt Count (units (unkn own) date) (150-400) X103/uL unknown) (unknown) (no (unknown) (unknown) Plt Count 107 L (units (unknown) date) (150-400) X103/uL unknown) (unknown) (no (unknown) (unknown) Potassium (units (unkn own) date) (3.4-5.1) mmol/L unknown) (unknown) (no (unknown) (unknown) Potassium 4.8 (units ( unknown) date) (3.4-5.1) mmol/L unknown) (unknown) (no (unknown) (unknown) Prescriptions: (units (unknown) date) unknown) (unknown) (no (unknown) (unknown) Previous Rx's (units ( unknown) date) unknown) (unknown) (no (unknown) (unknown) Prothrombin Time (units (unknown) date) INR Stat unknown) (unknown) (no (unknown) (unknown) Psychiatric (units (un known) date) unknown) (unknown) (no (unknown) (unknown) Psychiatric: (units (u nknown) date) Denies anxiety, unknown) Denies behavioral changes, Reports confusion, (unknown) (no (unknown) (unknown) Pt reports taking (units (unknown) date) every other day, at unknown) best. Also stated' only takes 2 pills, (unknown) (no (unknown) (unknown) Pulse Oximetry 93 (units (unknown) date) 08/20/22 17:29 unknown) (unknown) (no (unknown) (unknown) Pulse Oximetry 93 (units (unknown) date) 96 unknown) (unknown) (no (unknown) (unknown) Pulse Oximetry 98 (units (unknown) date) unknown) (unknown) (no (unknown) (unknown) Pulse Rate 88 (units ( unknown) date) unknown) (unknown) (no (unknown) (unknown) Pulse Rate 96 H (units (unknown) date) 08/20/22 17:29 unknown) (unknown) (no (unknown) (unknown) Pulse Rate 96 H 88 (units (unknown) date) unknown) (unknown) (no (unknown) (unknown) RBC (4.5-5.9) (units ( unknown) date) X106/uL unknown) (unknown) (no (unknown) (unknown) RBC 3.05 L (units (unk nown) date) (4.5-5.9) X106/uL unknown) (unknown) (no (unknown) (unknown) RDW (11.6-14.8) % (units (unknown) date) unknown) (unknown) (no (unknown) (unknown) RDW 13.7 (units (unkno wn) date) (11.6-14.8) % unknown) (unknown) (no (unknown) (unknown) ROS Unobtainable: (units (unknown) date) All systems unknown) reviewed + are unremarkable except as noted in HPI (unknown) (no (unknown) (unknown) Rate:?regular rate (units (unknown) date) unknown) (unknown) (no (unknown) (unknown) Referrals: (units (unk nown) date) unknown) (unknown) (no (unknown) (unknown) Related Data (units (u nknown) date) unknown) (unknown) (no (unknown) (unknown) Resp (units (unkno wn) date) unknown) (unknown) (no (unknown) (unknown) Respiratory Rate (units (unknown) date) 20 08/20/22 17:29 unknown) (unknown) (no (unknown) (unknown) Respiratory Rate (units (unknown) date) 20 21 unknown) (unknown) (no (unknown) (unknown) Respiratory Rate (units (unknown) date) 21 unknown) (unknown) (no (unknown) (unknown) Respiratory (units (un known) date) unknown) (unknown) (no (unknown) (unknown) Respiratory: Denies (units (unknown) date) cough, Denies unknown) dyspnea, Denies dyspnea on exertion and Denies (unknown) (no (unknown) (unknown) Review of Systems (units (unknown) date) unknown) (unknown) (no (unknown) (unknown) Rhythm:?afib (units (u nknown) date) unknown) (unknown) (no (unknown) (unknown) Signed By: (units (unk nown) date) unknown) (unknown) (no (unknown) (unknown) Sister Rheumatoid (units (unknown) date) arthritis unknown) (unknown) (no (unknown) (unknown) Skin/Breast: (units (u nknown) date) Denies pruritus, unknown) Denies erythema, Denies rash and Denies wounds (unknown) (no (unknown) (unknown) Smoking Status: (units (unknown) date) Former smoker unknown) (unknown) (no (unknown) (unknown) Social History (units (unknown) date) (Reviewed 12/25/21 unknown) @ 16:19 by Pop Delgado PA-C) (unknown) (no (unknown) (unknown) Sodium (137-145) (units (unknown) date) mmol/L unknown) (unknown) (no (unknown) (unknown) Sodium 130 L (units (u nknown) date) (137-145) mmol/L unknown) (unknown) (no (unknown) (unknown) Sodium Chloride (units (unknown) date) (Normal Saline unknown) 0.9%) 1,000 mls @ 1,000 mls/hr IV BOLUS ONE (unknown) (no (unknown) (unknown) Source: patient (units (unknown) date) unknown) (unknown) (no (unknown) (unknown) Stated Complaint: (units (unknown) date) a-fib/passed out unknown) this morning (unknown) (no (unknown) (unknown) Stop: 08/20/22 (units (unknown) date) 17:37 unknown) (unknown) (no (unknown) (unknown) Stop: 08/20/22 (units (unknown) date) 18:21 unknown) (unknown) (no (unknown) (unknown) Stop: 08/20/22 (units (unknown) date) 19:20 unknown) (unknown) (no (unknown) (unknown) Substance Use (units ( unknown) date) Type: does not use unknown) (unknown) (no (unknown) (unknown) Surgical History (units (unknown) date) (Reviewed 12/25/21 unknown) @ 16:19 by Pop Delgado PA-C) (unknown) (no (unknown) (unknown) Temperature 98.6 F (units (unknown) date) 08/20/22 17:29 unknown) (unknown) (no (unknown) (unknown) Temperature 98.6 F (units (unknown) date) unknown) (unknown) (no (unknown) (unknown) Temperature (units (un known) date) unknown) (unknown) (no (unknown) (unknown) Tenderness to (units ( unknown) date) palpation of unknown) right-sided, posterolateral ribs (unknown) (no (unknown) (unknown) Throat:?posterior (units (unknown) date) oropharynx normal unknown) (unknown) (no (unknown) (unknown) Time Seen by (units (u nknown) date) Provider: 08/20/22 unknown) 17:36 (unknown) (no (unknown) (unknown) Total Bilirubin (units (unknown) date) (0.2-1.3) mg/dL unknown) (unknown) (no (unknown) (unknown) Total Bilirubin (units (unknown) date) 1.3 (0.2-1.3) mg/dL unknown) (unknown) (no (unknown) (unknown) Total Creatine (units (unknown) date) Kinase (55-170) U/L unknown) (unknown) (no (unknown) (unknown) Total Creatine (units (unknown) date) Kinase 144 (55-170) unknown) U/L (unknown) (no (unknown) (unknown) Total Protein (units ( unknown) date) (6.3-8.2) g/dL unknown) (unknown) (no (unknown) (unknown) Total Protein 6.6 (units (unknown) date) (6.3-8.2) g/dL unknown) (unknown) (no (unknown) (unknown) Troponin + CK (units ( unknown) date) Cardiac Panel Stat unknown) (unknown) (no (unknown) (unknown) Troponin I (units (unk nown) date) (0.01-0.034) ng/mL unknown) (unknown) (no (unknown) (unknown) Troponin I 0.013 (units (unknown) date) (0.01-0.034) ng/mL unknown) (unknown) (no (unknown) (unknown) Urine Dip (units (unkn own) date) unknown) (unknown) (no (unknown) (unknown) Urine Microscopic (units (unknown) date) Stat unknown) (unknown) (no (unknown) (unknown) Urine Specific (units (unknown) date) [place] 1.010 unknown) (unknown) (no (unknown) (unknown) Vital Signs - 8 hr (units (unknown) date) unknown) (unknown) (no (unknown) (unknown) Vital Signs (units (un known) date) unknown) (unknown) (no (unknown) (unknown) Vital signs: (units (u nknown) date) unknown) (unknown) (no (unknown) (unknown) WBC (4.5-11.0) (units (unknown) date) X103/uL unknown) (unknown) (no (unknown) (unknown) WBC 7.4 (4.5-11.0) (units (unknown) date) X103/uL unknown) (unknown) (no (unknown) (unknown) XR chest 1V Stat (units (unknown) date) unknown) (unknown) (no (unknown) (unknown) [Embedded Image (units (unknown) date) Not Available] unknown) (unknown) (no (unknown) (unknown) alcohol intake (units (unknown) date) frequency: 3 or unknown) more drinks per day (unknown) (no (unknown) (unknown) alcohol intake: (units (unknown) date) current unknown) (unknown) (no (unknown) (unknown) amoxicillin (units (un known) date) [AMOXICILLIN] unknown) Allergy Severe SWOLLEN JAW Verified 08/20/22 17:41 (unknown) (no (unknown) (unknown) and Denies (units (unk nown) date) orthopnea unknown) (unknown) (no (unknown) (unknown) and Denies urinary (units (unknown) date) urgency unknown) (unknown) (no (unknown) (unknown) and below (units (unkn own) date) unknown) (unknown) (no (unknown) (unknown) clindamycin (units (un known) date) [CLINDAMYCIN] unknown) AdvReac Severe C-DIFF Verified 08/20/22 17:41 (unknown) (no (unknown) (unknown) diarrhea, Denies (units (unknown) date) nausea and Denies unknown) vomiting (unknown) (no (unknown) (unknown) falls, Reports (units (unknown) date) lethargy, Reports unknown) poor appetite and Reports weakness (unknown) (no (unknown) (unknown) furosemide 20 mg (units (unknown) date) tablet 10 mg PO QAM unknown) #45 tabs 12/15/21 (unknown) (no (unknown) (unknown) furosemide 20 mg (units (unknown) date) tablet unknown) (unknown) (no (unknown) (unknown) household members: (units (unknown) date) none unknown) (unknown) (no (unknown) (unknown) inital exam (units (un known) date) unknown) (unknown) (no (unknown) (unknown) lightheadedness, (units (unknown) date) Denies unknown) palpitations, Denies dyspnea, Denies dyspnea on exertion (unknown) (no (unknown) (unknown) marital status: (units (unknown) date) unknown) (unknown) (no (unknown) (unknown) metoprolol (units (unk nown) date) succinate 25 mg 25 unknown) mg PO DAILY #30 tabs 10/30/21 (unknown) (no (unknown) (unknown) metoprolol (units (unk nown) date) succinate 25 mg unknown) tablet extended release 24 hr (unknown) (no (unknown) (unknown) neck pain, Denies (units (unknown) date) sore throat and unknown) Denies throat swelling (unknown) (no (unknown) (unknown) numbness, Denies (units (unknown) date) tingling and unknown) Reports weakness (unknown) (no (unknown) (unknown) occupational (units (u nknown) date) status: previously unknown) employed (unknown) (no (unknown) (unknown) since it RX'd'. (units (unknown) date) unknown) (unknown) (no (unknown) (unknown) substance use (units ( unknown) date) type: does not use unknown) (unknown) (no (unknown) (unknown) suicidal ideation (units (unknown) date) unknown) (unknown) (no (unknown) (unknown) tablet,extended (units (unknown) date) release 24 hr unknown) (unknown) (no (unknown) (unknown) wheezing (units (unkno wn) date) unknown) (unknown) (no (unknown) (unknown) withdrawal (units (unk nown) date) presents to the ED unknown) Result panel 921 (unknown) (no date) (unknown) (unknown) Cult Not (units (unkn own) Indicated unknown) (unknown) (no date) (unknown) (unknown) None Seen (units (unk nown) unknown) (unknown) (no date) (unknown) (unknown) None Seen (units (unk nown) unknown) (unknown) (no date) (unknown) (unknown) None Seen (units (unk nown) unknown) Result panel 922 (unknown) (no (unknown) (unknown) (no value) (units (unk nown) date) unknown) (unknown) (no (unknown) (unknown) 08/20/22 08/20/22 (units (unknown) date) 08/20/22 unknown) Range/Units (unknown) (no (unknown) (unknown) 08/20/22 17:35 (units (unknown) date) unknown) (unknown) (no (unknown) (unknown) 08/20/22 17:36 (units (unknown) date) unknown) (unknown) (no (unknown) (unknown) 08/20/22 17:49 (units (unknown) date) unknown) (unknown) (no (unknown) (unknown) 08/20/22 18:41 (units (unknown) date) unknown) (unknown) (no (unknown) (unknown) 08/20/22 18:42 (units (unknown) date) unknown) (unknown) (no (unknown) (unknown) 08/20/22 18:43 (units (unknown) date) unknown) (unknown) (no (unknown) (unknown) 08/20/22 (units (unkno wn) date) Range/Units unknown) (unknown) (no (unknown) (unknown) 08/20/22 (units (unkno wn) date) unknown) (unknown) (no (unknown) (unknown) [id number] (units (unkno wn) date) unknown) (unknown) (no (unknown) (unknown) 10 mg PO QAM Qty: (units (unknown) date) 45 1RF unknown) (unknown) (no (unknown) (unknown) 17:29 08/20/22 (units (unknown) date) unknown) (unknown) (no (unknown) (unknown) 17:32 08/20/22 (units (unknown) date) unknown) (unknown) (no (unknown) (unknown) 17:35 17:35 17:35 (units (unknown) date) unknown) (unknown) (no (unknown) (unknown) 17:35 (units (unkno wn) date) unknown) (unknown) (no (unknown) (unknown) 17:55 08/20/22 (units (unknown) date) unknown) (unknown) (no (unknown) (unknown) 17:55 (units (unkno wn) date) unknown) (unknown) (no (unknown) (unknown) 18:00 08/20/22 (units (unknown) date) unknown) (unknown) (no (unknown) (unknown) 18:00 (units (unkno wn) date) unknown) (unknown) (no (unknown) (unknown) 25 mg PO DAILY (units (unknown) date) Qty: 30 0RF unknown) (unknown) (no (unknown) (unknown) 76-year-old male (units (unknown) date) with past medical unknown) history AFib, alcohol use disorder, alcohol (unknown) (no (unknown) (unknown) ALT (<50) IU/L (units (unknown) date) unknown) (unknown) (no (unknown) (unknown) ALT 40 (<50) IU/L (units (unknown) date) unknown) (unknown) (no (unknown) (unknown) APTT (26-36) (units (u nknown) date) SECONDS unknown) (unknown) (no (unknown) (unknown) APTT 27 (26-36) (units (unknown) date) SECONDS unknown) (unknown) (no (unknown) (unknown) AST (17-59) IU/L (units (unknown) date) unknown) (unknown) (no (unknown) (unknown) AST 57 (17-59) (units (unknown) date) IU/L unknown) (unknown) (no (unknown) (unknown) Age/Sex: 76 / M (units (unknown) date) unknown) (unknown) (no (unknown) (unknown) Albumin (3.5-5.0) (units (unknown) date) g/dL unknown) (unknown) (no (unknown) (unknown) Albumin 4.1 (units (un known) date) (3.5-5.0) g/dL unknown) (unknown) (no (unknown) (unknown) Albumin/Globulin (units (unknown) date) Ratio (1.0-2.8) unknown) (unknown) (no (unknown) (unknown) Albumin/Globulin (units (unknown) date) Ratio 1.6 (1.0-2.8) unknown) (unknown) (no (unknown) (unknown) Alcohol abuse (units ( unknown) date) unknown) (unknown) (no (unknown) (unknown) Alcohol type: (units ( unknown) date) beer, wine and hard unknown) liquor (unknown) (no (unknown) (unknown) Alcohol withdrawal (units (unknown) date) delirium unknown) (unknown) (no (unknown) (unknown) Alcohol withdrawal (units (unknown) date) unknown) (unknown) (no (unknown) (unknown) Alkaline (units (unkno wn) date) Phosphatase unknown) (38-126) U/L (unknown) (no (unknown) (unknown) Alkaline (units (unkno wn) date) Phosphatase 67 unknown) (38-126) U/L (unknown) (no (unknown) (unknown) Allergic/Immunolog (units (unknown) date) ic unknown) (unknown) (no (unknown) (unknown) Allergic/Immunolog (units (unknown) date) ic: Denies unknown) urticaria, Denies throat swelling and Denies (unknown) (no (unknown) (unknown) Allergies (units (unkn own) date) unknown) (unknown) (no (unknown) (unknown) Allergy/AdvReac (units (unknown) date) Type Severity unknown) Reaction Status Date / Time (unknown) (no (unknown) (unknown) Anemia, chronic (units (unknown) date) disease unknown) (unknown) (no (unknown) (unknown) Aspirin (Aspirin (units (unknown) date) 81 Mg Chew Tab) 324 unknown) mg PO NOW ONE (unknown) (no (unknown) (unknown) Atrial (units (unkno wn) date) fibrillation unknown) (unknown) (no (unknown) (unknown) Auscultation:?leigh (units (unknown) date) r to auscultation unknown) bilaterally (unknown) (no (unknown) (unknown) BPH w urinary (units ( unknown) date) obs/LUTS unknown) (unknown) (no (unknown) (unknown) BUN (9-20) mg/dL (units (unknown) date) unknown) (unknown) (no (unknown) (unknown) BUN 16 (9-20) (units ( unknown) date) mg/dL unknown) (unknown) (no (unknown) (unknown) BUN/Creatinine (units (unknown) date) Ratio (6-22) unknown) (unknown) (no (unknown) (unknown) BUN/Creatinine (units (unknown) date) Ratio 15.2 (6-22) unknown) (unknown) (no (unknown) (unknown) Baso # (Auto) (units ( unknown) date) (0-100) /uL unknown) (unknown) (no (unknown) (unknown) Baso # (Auto) 0 (units (unknown) date) (0-100) /uL unknown) (unknown) (no (unknown) (unknown) Baso % (Auto) (units ( unknown) date) (0-2) % unknown) (unknown) (no (unknown) (unknown) Baso % (Auto) 0.4 (units (unknown) date) (0-2) % unknown) (unknown) (no (unknown) (unknown) Bedside Urine (units ( unknown) date) Bilirubin - unknown) Negative (unknown) (no (unknown) (unknown) Bedside Urine (units ( unknown) date) Glucose Negative unknown) (unknown) (no (unknown) (unknown) Bedside Urine (units ( unknown) date) Ketone - Negative unknown) (unknown) (no (unknown) (unknown) Bedside Urine (units ( unknown) date) Leukocytes - unknown) Negative (unknown) (no (unknown) (unknown) Bedside Urine (units ( unknown) date) Nitrite - Negative unknown) (unknown) (no (unknown) (unknown) Bedside Urine (units ( unknown) date) Occult Blood +/ unknown) (unknown) (no (unknown) (unknown) Bedside Urine (units ( unknown) date) Protein - Negative unknown) (unknown) (no (unknown) (unknown) Bedside Urine (units ( unknown) date) Urobilinogen - unknown) Negative (unknown) (no (unknown) (unknown) Bedside Urine pH (units (unknown) date) 6.5 unknown) (unknown) (no (unknown) (unknown) Blood Pressure (units (unknown) date) 110/79 126/82 unknown) (unknown) (no (unknown) (unknown) Blood Pressure (units (unknown) date) 11470 08/20/22 unknown) 17:29 (unknown) (no (unknown) (unknown) Blood Pressure (units (unknown) date) 114 114 unknown) (unknown) (no (unknown) (unknown) CT cervical spine (units (unknown) date) wo con Stat unknown) (unknown) (no (unknown) (unknown) CT chest wo con (units (unknown) date) Stat unknown) (unknown) (no (unknown) (unknown) CT head/brain wo (units (unknown) date) con Stat unknown) (unknown) (no (unknown) (unknown) Calcium (8.4-10.2) (units (unknown) date) mg/dL unknown) (unknown) (no (unknown) (unknown) Calcium 8.7 (units (un known) date) (8.4-10.2) mg/dL unknown) (unknown) (no (unknown) (unknown) Carbon Dioxide (units (unknown) date) (22-32) mmol/L unknown) (unknown) (no (unknown) (unknown) Carbon Dioxide 24 (units (unknown) date) (22-32) mmol/L unknown) (unknown) (no (unknown) (unknown) Cardio (units (o wn) date) unknown) (unknown) (no (unknown) (unknown) Cardiomyopathy (units (unknown) date) unknown) (unknown) (no (unknown) (unknown) Cardiovascular (units (unknown) date) unknown) (unknown) (no (unknown) (unknown) Cardiovascular: (units (unknown) date) Denies chest pain, unknown) Reports irregular heart rhythm, Denies (unknown) (no (unknown) (unknown) Chief Complaint: (units (unknown) date) Arrhythmia/Palpitat unknown) ions (unknown) (no (unknown) (unknown) Chloride (98-107) (units (unknown) date) mmol/L unknown) (unknown) (no (unknown) (unknown) Chloride 97 L (units ( unknown) date) (98-107) mmol/L unknown) (unknown) (no (unknown) (unknown) Complete Blood (units (unknown) date) Count AUTO DIFF unknown) Stat (unknown) (no (unknown) (unknown) Comprehensive (units ( unknown) date) Metabolic Panel unknown) Stat (unknown) (no (unknown) (unknown) Const (units (o wn) date) unknown) (unknown) (no (unknown) (unknown) Constitutional (units (unknown) date) unknown) (unknown) (no (unknown) (unknown) Constitutional: (units (unknown) date) Denies chills, unknown) Denies fatigue, Denies fever(s), Denies frequent (unknown) (no (unknown) (unknown) Course (units (o wn) date) unknown) (unknown) (no (unknown) (unknown) Creatinine (units (unk nown) date) (0.66-1.25) mg/dL unknown) (unknown) (no (unknown) (unknown) Creatinine 1.05 (units (unknown) date) (0.66-1.25) mg/dL unknown) (unknown) (no (unknown) (unknown) : 1945 (units (unknown) date) Acct:[id number] unknown) (unknown) (no (unknown) (unknown) Date of Service: (units (unknown) date) 08/20/22 unknown) (unknown) (no (unknown) (unknown) Denies depression, (units (unknown) date) Reports memory unknown) loss, Denies homicidal ideation and Denies (unknown) (no (unknown) (unknown) Denies frequent (units (unknown) date) falls, Denies loss unknown) of vision, Reports memory loss, Denies (unknown) (no (unknown) (unknown) Denies loss of (units (unknown) date) vision unknown) (unknown) (no (unknown) (unknown) Denies numbness (units (unknown) date) and Denies tingling unknown) (unknown) (no (unknown) (unknown) Departure (units (unkn own) date) unknown) (unknown) (no (unknown) (unknown) Discharge Plan (units (unknown) date) unknown) (unknown) (no (unknown) (unknown) Discontinued (units (u nknown) date) Medications unknown) (unknown) (no (unknown) (unknown) Documented By: MLM (units (unknown) date) unknown) (unknown) (no (unknown) (unknown) ED Orders (units (unkn own) date) unknown) (unknown) (no (unknown) (unknown) EKG-12 Lead Stat (units (unknown) date) unknown) (unknown) (no (unknown) (unknown) ENT (units (unkno wn) date) unknown) (unknown) (no (unknown) (unknown) ER Physician: (units ( unknown) date) Sascha,Hyma P.A-C unknown) (unknown) (no (unknown) (unknown) Ears, Nose, Mouth, (units (unknown) date) and Throat: Denies unknown) change in voice, Denies dizziness, Reports (unknown) (no (unknown) (unknown) Ears:?hearing (units ( unknown) date) grossly normal unknown) bilaterally (unknown) (no (unknown) (unknown) Effort + (units (unkno wn) date) Inspection:?normal unknown) respiratory effort (unknown) (no (unknown) (unknown) Emergency Report (units (unknown) date) unknown) (unknown) (no (unknown) (unknown) Endocrine (units (unkn own) date) unknown) (unknown) (no (unknown) (unknown) Endocrine: Denies (units (unknown) date) fatigue, Denies unknown) flushing and Denies palpitations (unknown) (no (unknown) (unknown) Eos # (Auto) (units (u nknown) date) (0-450) /uL unknown) (unknown) (no (unknown) (unknown) Eos # (Auto) 0 (units (unknown) date) (0-450) /uL unknown) (unknown) (no (unknown) (unknown) Eos % (Auto) (2-4) (units (unknown) date) % unknown) (unknown) (no (unknown) (unknown) Eos % (Auto) 0.1 L (units (unknown) date) (2-4) % unknown) (unknown) (no (unknown) (unknown) Esterase (units (unkno wn) date) unknown) (unknown) (no (unknown) (unknown) Estimated GFR > 60 (units (unknown) date) (>60) mL/min unknown) (unknown) (no (unknown) (unknown) Estimated GFR (units ( unknown) date) (>60) mL/min unknown) (unknown) (no (unknown) (unknown) Ethanol (ETOH) (units (unknown) date) Stat unknown) (unknown) (no (unknown) (unknown) Ethyl Alcohol < 10 (units (unknown) date) ( - 10) mg/dL unknown) (unknown) (no (unknown) (unknown) Ethyl Alcohol ( - (units (unknown) date) 10) mg/dL unknown) (unknown) (no (unknown) (unknown) Exam Narrative: (units (unknown) date) unknown) (unknown) (no (unknown) (unknown) Exam (units (unkno wn) date) unknown) (unknown) (no (unknown) (unknown) Eyes (units (unkno wn) date) unknown) (unknown) (no (unknown) (unknown) Eyes: Denies (units (u nknown) date) change in vision, unknown) Denies eye discharge, Denies irritation and (unknown) (no (unknown) (unknown) Face and (units (unkno wn) date) sinus:?normal unknown) facial exam and sinuses nontender (unknown) (no (unknown) (unknown) Family History (units (unknown) date) (Reviewed 12/25/21 unknown) @ 16:19 by Pop Delgado PA-C) (unknown) (no (unknown) (unknown) Former smoker (units ( unknown) date) unknown) (unknown) (no (unknown) (unknown) Jeannette Chaudhary, (units (unknown) date) MD [Primary Care unknown) Provider] (unknown) (no (unknown) (unknown) Gastrointestinal (units (unknown) date) unknown) (unknown) (no (unknown) (unknown) Gastrointestinal: (units (unknown) date) Denies abdominal unknown) pain, Denies change in bowel habits, Denies (unknown) (no (unknown) (unknown) General (units (unkno wn) date) unknown) (unknown) (no (unknown) (unknown) General:?appearanc (units (unknown) date) e normal, both eyes unknown) and all related structures (unknown) (no (unknown) (unknown) General:?cooperati (units (unknown) date) ve, healthy unknown) appearing and comfortable (unknown) (no (unknown) (unknown) General:?patient (units (unknown) date) alert, patient unknown) awake and patient oriented x3; CIWA score 9 on (unknown) (no (unknown) (unknown) Genitourinary (units ( unknown) date) unknown) (unknown) (no (unknown) (unknown) Genitourinary: (units (unknown) date) Denies hematuria, unknown) Denies flank pain, Denies urinary incontinence (unknown) (no (unknown) (unknown) Globulin (1.7-4.1) (units (unknown) date) g/dL unknown) (unknown) (no (unknown) (unknown) Globulin 2.5 (units (u nknown) date) (1.7-4.1) g/dL unknown) (unknown) (no (unknown) (unknown) Glucose (80-110) (units (unknown) date) mg/dL unknown) (unknown) (no (unknown) (unknown) Glucose 100 (units (un known) date) (80-110) mg/dL unknown) (unknown) (no (unknown) (unknown) Gout (units (unkno wn) date) unknown) (unknown) (no (unknown) (unknown) HENMT (units (unkno wn) date) unknown) (unknown) (no (unknown) (unknown) HPI - (units (unkno wn) date) Arrhythmia/Palpitat unknown) ions (unknown) (no (unknown) (unknown) HPI narrative: (units (unknown) date) unknown) (unknown) (no (unknown) (unknown) HTN (hypertension) (units (unknown) date) unknown) (unknown) (no (unknown) (unknown) Hct (41-53) % (units ( unknown) date) unknown) (unknown) (no (unknown) (unknown) Hct 31.4 L (41-53) (units (unknown) date) % unknown) (unknown) (no (unknown) (unknown) Head:?normal to (units (unknown) date) inspection unknown) (unknown) (no (unknown) (unknown) Hematologic/Lympha (units (unknown) date) tic unknown) (unknown) (no (unknown) (unknown) Hematologic/Lympha (units (unknown) date) tic: Denies easy unknown) bruising (unknown) (no (unknown) (unknown) Hgb (13.5-17.5) (units (unknown) date) g/dL unknown) (unknown) (no (unknown) (unknown) Hgb 11.0 L (units (unk nown) date) (13.5-17.5) g/dL unknown) (unknown) (no (unknown) (unknown) History of Present (units (unknown) date) Illness unknown) (unknown) (no (unknown) (unknown) 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 (unknown) (no (unknown) (unknown) History of (units (unk nown) date) percutaneous unknown) endoscopic gastrostomy (-2019) (unknown) (no (unknown) (unknown) INR (0.9-1.3) (units ( unknown) date) unknown) (unknown) (no (unknown) (unknown) INR 1.1 (0.9-1.3) (units (unknown) date) unknown) (unknown) (no (unknown) (unknown) Initial Vital (units ( unknown) date) Signs unknown) (unknown) (no (unknown) (unknown) Initial Vital (units ( unknown) date) Signs: unknown) (unknown) (no (unknown) (unknown) Integumentary/[place] (units (unknown) date) sts unknown) (unknown) (no (unknown) (unknown) [facility] (units (unknown) date) [address] unknown) [place] [address] (unknown) (no (unknown) (unknown) Lab Data (units (unkno wn) date) unknown) (unknown) (no (unknown) (unknown) Lab Results (units (un known) date) unknown) (unknown) (no (unknown) (unknown) Label Comments: (units (unknown) date) unknown) (unknown) (no (unknown) (unknown) Labs: (units (unkno wn) date) unknown) (unknown) (no (unknown) (unknown) Last Admin: (units (un known) date) 08/20/22 18:16 unknown) Dose: 324 mg (unknown) (no (unknown) (unknown) Last Admin: (units (un known) date) 08/20/22 18:32 unknown) Dose: 1 mg (unknown) (no (unknown) (unknown) Last Admin: (units (un known) date) 08/20/22 18:33 unknown) Dose: 1,000 mls/hr (unknown) (no (unknown) (unknown) Lipase (23-300) (units (unknown) date) U/L unknown) (unknown) (no (unknown) (unknown) Lipase 127 (units (unk nown) date) (23-300) U/L unknown) (unknown) (no (unknown) (unknown) Lipase Stat (units (un known) date) unknown) (unknown) (no (unknown) (unknown) Lorazepam (units (unkn own) date) (Lorazepam 2 Mg/Ml unknown) Inj) 1 mg IV NOW ONE (unknown) (no (unknown) (unknown) Lymph # (Auto) (units (unknown) date) (5026-5230) /uL unknown) (unknown) (no (unknown) (unknown) Lymph # (Auto) 500 (units (unknown) date) L (1718-7266) /uL unknown) (unknown) (no (unknown) (unknown) Lymph % (Auto) (units (unknown) date) (25-40) % unknown) (unknown) (no (unknown) (unknown) Lymph % (Auto) 7.1 (units (unknown) date) L (25-40) % unknown) (unknown) (no (unknown) (unknown) MCH (26-34) PG (units (unknown) date) unknown) (unknown) (no (unknown) (unknown) MCH 36.0 H (26-34) (units (unknown) date) PG unknown) (unknown) (no (unknown) (unknown) MCHC (30-36) % (units (unknown) date) unknown) (unknown) (no (unknown) (unknown) MCHC 34.9 (30-36) (units (unknown) date) % unknown) (unknown) (no (unknown) (unknown) MCV (80-100) fL (units (unknown) date) unknown) (unknown) (no (unknown) (unknown) MCV 103.2 H (units (un known) date) (80-100) fL unknown) (unknown) (no (unknown) (unknown) MDM - (units (unkno wn) date) Arrhythmia/Palpitat unknown) ions (unknown) (no (unknown) (unknown) MDM Narrative (units ( unknown) date) unknown) (unknown) (no (unknown) (unknown) Magnesium (units (unkn own) date) (1.6-2.3) mg/dL unknown) (unknown) (no (unknown) (unknown) Magnesium 1.2 L (units (unknown) date) (1.6-2.3) mg/dL unknown) (unknown) (no (unknown) (unknown) Magnesium Stat (units (unknown) date) unknown) (unknown) (no (unknown) (unknown) Medical History (units (unknown) date) (Reviewed 12/25/21 unknown) @ 16:19 by Pop Delgado PA-C) (unknown) (no (unknown) (unknown) Medical decision (units (unknown) date) making narrative: unknown) (unknown) (no (unknown) (unknown) Medication (units (unk nown) date) Instructions unknown) Recorded (unknown) (no (unknown) (unknown) Mixed (units (unkno wn) date) hyperlipidemia unknown) (unknown) (no (unknown) (unknown) Mode of arrival: (units (unknown) date) Wheelchair unknown) (unknown) (no (unknown) (unknown) [place] # (Auto) (units ( unknown) date) (0-900) /uL unknown) (unknown) (no (unknown) (unknown) [place] # (Auto) 600 (units (unknown) date) (0-900) /uL unknown) (unknown) (no (unknown) (unknown) [place] % (Auto) (units ( unknown) date) (3-14) % unknown) (unknown) (no (unknown) (unknown) [place] % (Auto) 8.1 (units (unknown) date) (3-14) % unknown) (unknown) (no (unknown) (unknown) Mother Lung cancer (units (unknown) date) unknown) (unknown) (no (unknown) (unknown) Mouth:?oral (units (un known) date) mucosae normal unknown) (unknown) (no (unknown) (unknown) Musculoskeletal (units (unknown) date) unknown) (unknown) (no (unknown) (unknown) Musculoskeletal: (units (unknown) date) Denies back pain, unknown) Denies muscle weakness, Reports neck pain, (unknown) (no (unknown) (unknown) Narrative (units (unkn own) date) unknown) (unknown) (no (unknown) (unknown) Neck (units (unkno wn) date) unknown) (unknown) (no (unknown) (unknown) Neck:?normal (units (u nknown) date) visual inspection unknown) and no lymphadenopathy noted (unknown) (no (unknown) (unknown) Neuro (units (unkno wn) date) unknown) (unknown) (no (unknown) (unknown) Neurologic (units (unk nown) date) unknown) (unknown) (no (unknown) (unknown) Neurologic: Denies (units (unknown) date) behavioral changes, unknown) Reports confusion, Denies dizziness, (unknown) (no (unknown) (unknown) Neut # (Auto) (units ( unknown) date) (1113-8099) /uL unknown) (unknown) (no (unknown) (unknown) Neut # (Auto) 6200 (units (unknown) date) (9126-1868) /uL unknown) (unknown) (no (unknown) (unknown) Neut % (Auto) (units ( unknown) date) (50-75) % unknown) (unknown) (no (unknown) (unknown) Neut % (Auto) 84.3 (units (unknown) date) H (50-75) % unknown) (unknown) (no (unknown) (unknown) No Action (units (unkn own) date) unknown) (unknown) (no (unknown) (unknown) Nose:?external (units (unknown) date) nose normal unknown) (unknown) (no (unknown) (unknown) Ordered: (units (unkno wn) date) unknown) (unknown) (no (unknown) (unknown) Orders (units (unkno wn) date) unknown) (unknown) (no (unknown) (unknown) Oxygen Delivery (units (unknown) date) Method 08/20/22 unknown) 17:29 (unknown) (no (unknown) (unknown) Oxygen Delivery (units (unknown) date) Method Room Air unknown) Room Air (unknown) (no (unknown) (unknown) Oxygen Delivery (units (unknown) date) Method Room Air unknown) (unknown) (no (unknown) (unknown) PT (10.1-12.7) (units (unknown) date) SECONDS unknown) (unknown) (no (unknown) (unknown) PT 12.7 (units (unkno wn) date) (10.1-12.7) SECONDS unknown) (unknown) (no (unknown) (unknown) Partial (units (unkno wn) date) Thromboplastin Time unknown) Stat (unknown) (no (unknown) (unknown) Patient History (units (unknown) date) unknown) (unknown) (no (unknown) (unknown) Patient denies (units ( unknown) date) fever, chills, unknown) chest pain, shortness of breath, nausea, vomiting, (unknown) (no (unknown) (unknown) Patient's did (units (unknown) date) state that he unknown) suffered a minor fall just prior to arrival (unknown) (no (unknown) (unknown) Patient: (units (unkno wn) date) Eleazar Charles unknown) MR#: [id number] (unknown) (no (unknown) (unknown) Plt Count (units (unkn own) date) (150-400) X103/uL unknown) (unknown) (no (unknown) (unknown) Plt Count 107 L (units (unknown) date) (150-400) X103/uL unknown) (unknown) (no (unknown) (unknown) Potassium (units (unkn own) date) (3.4-5.1) mmol/L unknown) (unknown) (no (unknown) (unknown) Potassium 4.8 (units ( unknown) date) (3.4-5.1) mmol/L unknown) (unknown) (no (unknown) (unknown) Prescriptions: (units (unknown) date) unknown) (unknown) (no (unknown) (unknown) Previous Rx's (units ( unknown) date) unknown) (unknown) (no (unknown) (unknown) Prothrombin Time (units (unknown) date) INR Stat unknown) (unknown) (no (unknown) (unknown) Psychiatric (units (un known) date) unknown) (unknown) (no (unknown) (unknown) Psychiatric: (units (u nknown) date) Denies anxiety, unknown) Denies behavioral changes, Reports confusion, (unknown) (no (unknown) (unknown) Pt reports taking (units (unknown) date) every other day, at unknown) best. Also stated' only takes 2 pills, (unknown) (no (unknown) (unknown) Pulse Oximetry 93 (units (unknown) date) 08/20/22 17:29 unknown) (unknown) (no (unknown) (unknown) Pulse Oximetry 93 (units (unknown) date) 96 unknown) (unknown) (no (unknown) (unknown) Pulse Oximetry 98 (units (unknown) date) unknown) (unknown) (no (unknown) (unknown) Pulse Rate 88 (units ( unknown) date) unknown) (unknown) (no (unknown) (unknown) Pulse Rate 96 H (units (unknown) date) 08/20/22 17:29 unknown) (unknown) (no (unknown) (unknown) Pulse Rate 96 H 88 (units (unknown) date) unknown) (unknown) (no (unknown) (unknown) RBC (4.5-5.9) (units ( unknown) date) X106/uL unknown) (unknown) (no (unknown) (unknown) RBC 3.05 L (units (unk nown) date) (4.5-5.9) X106/uL unknown) (unknown) (no (unknown) (unknown) RDW (11.6-14.8) % (units (unknown) date) unknown) (unknown) (no (unknown) (unknown) RDW 13.7 (units (unkno wn) date) (11.6-14.8) % unknown) (unknown) (no (unknown) (unknown) ROS Unobtainable: (units (unknown) date) All systems unknown) reviewed + are unremarkable except as noted in HPI (unknown) (no (unknown) (unknown) Rate:?regular rate (units (unknown) date) unknown) (unknown) (no (unknown) (unknown) Referrals: (units (unk nown) date) unknown) (unknown) (no (unknown) (unknown) Related Data (units (u nknown) date) unknown) (unknown) (no (unknown) (unknown) Resp (units (unkno wn) date) unknown) (unknown) (no (unknown) (unknown) Respiratory Rate (units (unknown) date) 20 08/20/22 17:29 unknown) (unknown) (no (unknown) (unknown) Respiratory Rate (units (unknown) date) 20 21 unknown) (unknown) (no (unknown) (unknown) Respiratory Rate (units (unknown) date) 21 unknown) (unknown) (no (unknown) (unknown) Respiratory (units (un known) date) unknown) (unknown) (no (unknown) (unknown) Respiratory: Denies (units (unknown) date) cough, Denies unknown) dyspnea, Denies dyspnea on exertion and Denies (unknown) (no (unknown) (unknown) Review of Systems (units (unknown) date) unknown) (unknown) (no (unknown) (unknown) Rhythm:?afib (units (u nknown) date) unknown) (unknown) (no (unknown) (unknown) Signed By: (units (unk nown) date) unknown) (unknown) (no (unknown) (unknown) Sister Rheumatoid (units (unknown) date) arthritis unknown) (unknown) (no (unknown) (unknown) Skin/Breast: (units (u nknown) date) Denies pruritus, unknown) Denies erythema, Denies rash and Denies wounds (unknown) (no (unknown) (unknown) Smoking Status: (units (unknown) date) Former smoker unknown) (unknown) (no (unknown) (unknown) Social History (units (unknown) date) (Reviewed 12/25/21 unknown) @ 16:19 by Pop Delgado PA-C) (unknown) (no (unknown) (unknown) Sodium (137-145) (units (unknown) date) mmol/L unknown) (unknown) (no (unknown) (unknown) Sodium 130 L (units (u nknown) date) (137-145) mmol/L unknown) (unknown) (no (unknown) (unknown) Sodium Chloride (units (unknown) date) (Normal Saline unknown) 0.9%) 1,000 mls @ 1,000 mls/hr IV BOLUS ONE (unknown) (no (unknown) (unknown) Source: patient (units (unknown) date) unknown) (unknown) (no (unknown) (unknown) Stated Complaint: (units (unknown) date) a-fib/passed out unknown) this morning (unknown) (no (unknown) (unknown) Stop: 08/20/22 (units (unknown) date) 17:37 unknown) (unknown) (no (unknown) (unknown) Stop: 08/20/22 (units (unknown) date) 18:21 unknown) (unknown) (no (unknown) (unknown) Stop: 08/20/22 (units (unknown) date) 19:20 unknown) (unknown) (no (unknown) (unknown) Substance Use (units ( unknown) date) Type: does not use unknown) (unknown) (no (unknown) (unknown) Surgical History (units (unknown) date) (Reviewed 12/25/21 unknown) @ 16:19 by Pop Delgado PA-C) (unknown) (no (unknown) (unknown) Temperature 98.6 F (units (unknown) date) 08/20/22 17:29 unknown) (unknown) (no (unknown) (unknown) Temperature 98.6 F (units (unknown) date) unknown) (unknown) (no (unknown) (unknown) Temperature (units (un known) date) unknown) (unknown) (no (unknown) (unknown) Tenderness to (units ( unknown) date) palpation of unknown) right-sided, posterolateral ribs (unknown) (no (unknown) (unknown) Throat:?posterior (units (unknown) date) oropharynx normal unknown) (unknown) (no (unknown) (unknown) Time Seen by (units (u nknown) date) Provider: 08/20/22 unknown) 17:36 (unknown) (no (unknown) (unknown) Total Bilirubin (units (unknown) date) (0.2-1.3) mg/dL unknown) (unknown) (no (unknown) (unknown) Total Bilirubin (units (unknown) date) 1.3 (0.2-1.3) mg/dL unknown) (unknown) (no (unknown) (unknown) Total Creatine (units (unknown) date) Kinase (55-170) U/L unknown) (unknown) (no (unknown) (unknown) Total Creatine (units (unknown) date) Kinase 144 (55-170) unknown) U/L (unknown) (no (unknown) (unknown) Total Protein (units ( unknown) date) (6.3-8.2) g/dL unknown) (unknown) (no (unknown) (unknown) Total Protein 6.6 (units (unknown) date) (6.3-8.2) g/dL unknown) (unknown) (no (unknown) (unknown) Troponin + CK (units ( unknown) date) Cardiac Panel Stat unknown) (unknown) (no (unknown) (unknown) Troponin I (units (unk nown) date) (0.01-0.034) ng/mL unknown) (unknown) (no (unknown) (unknown) Troponin I 0.013 (units (unknown) date) (0.01-0.034) ng/mL unknown) (unknown) (no (unknown) (unknown) Urine Dip (units (unkn own) date) unknown) (unknown) (no (unknown) (unknown) Urine Microscopic (units (unknown) date) Stat unknown) (unknown) (no (unknown) (unknown) Urine Specific (units (unknown) date) Henderson 1.010 unknown) (unknown) (no (unknown) (unknown) Vital Signs - 8 hr (units (unknown) date) unknown) (unknown) (no (unknown) (unknown) Vital Signs (units (un known) date) unknown) (unknown) (no (unknown) (unknown) Vital signs: (units (u nknown) date) unknown) (unknown) (no (unknown) (unknown) WBC (4.5-11.0) (units (unknown) date) X103/uL unknown) (unknown) (no (unknown) (unknown) WBC 7.4 (4.5-11.0) (units (unknown) date) X103/uL unknown) (unknown) (no (unknown) (unknown) XR chest 1V Stat (units (unknown) date) unknown) (unknown) (no (unknown) (unknown) [Embedded Image (units (unknown) date) Not Available] unknown) (unknown) (no (unknown) (unknown) abdominal pain, (units (unknown) date) dysuria, unknown) lightheadedness, dizziness, syncope. Patient was (unknown) (no (unknown) (unknown) alcohol intake (units (unknown) date) frequency: 3 or unknown) more drinks per day (unknown) (no (unknown) (unknown) alcohol intake: (units (unknown) date) current unknown) (unknown) (no (unknown) (unknown) amoxicillin (units (un known) date) [AMOXICILLIN] unknown) Allergy Severe SWOLLEN JAW Verified 08/20/22 17:41 (unknown) (no (unknown) (unknown) an assist to get (units (unknown) date) patient into her unknown) car so she could bring him to the ED. (unknown) (no (unknown) (unknown) and Denies (units (unk nown) date) orthopnea unknown) (unknown) (no (unknown) (unknown) and Denies urinary (units (unknown) date) urgency unknown) (unknown) (no (unknown) (unknown) and below (units (unkn own) date) unknown) (unknown) (no (unknown) (unknown) appointment today (units (unknown) date) and that she is not unknown) aware of him falling earlier this morning. (unknown) (no (unknown) (unknown) clindamycin (units (un known) date) [CLINDAMYCIN] unknown) AdvReac Severe C-DIFF Verified 08/20/22 17:41 (unknown) (no (unknown) (unknown) consciousness. (units (unknown) date) Patient's unknown) states that he was unable to get up, she called (unknown) (no (unknown) (unknown) couple of days (units (unknown) date) later he goes back unknown) to buying are liquor. Patient's states (unknown) (no (unknown) (unknown) days which is (units ( unknown) date) longer than normal unknown) for him. Patient endorses palpitations, (unknown) (no (unknown) (unknown) diarrhea, Denies (units (unknown) date) nausea and Denies unknown) vomiting (unknown) (no (unknown) (unknown) drinks hard (units (un known) date) liquor, when he unknown) runs out he resorts to wine or beer. However, a (unknown) (no (unknown) (unknown) falls, Reports (units (unknown) date) lethargy, Reports unknown) poor appetite and Reports weakness (unknown) (no (unknown) (unknown) feeling uneasy. (units (unknown) date) Patient is unknown) accompanied by his . Patient also appears (unknown) (no (unknown) (unknown) for alcohol (units (un known) date) withdrawal versus unknown) alcohol intoxication versus UTI versus pneumonia (unknown) (no (unknown) (unknown) furosemide 20 mg (units (unknown) date) tablet 10 mg PO QAM unknown) #45 tabs 12/15/21 (unknown) (no (unknown) (unknown) furosemide 20 mg (units (unknown) date) tablet unknown) (unknown) (no (unknown) (unknown) had any seizures (units (unknown) date) in the last day or unknown) 2. Patient's states he primarily (unknown) (no (unknown) (unknown) household members: (units (unknown) date) none unknown) (unknown) (no (unknown) (unknown) however is rate is (units (unknown) date) controlled. unknown) (unknown) (no (unknown) (unknown) inital exam (units (un known) date) unknown) (unknown) (no (unknown) (unknown) into the ED. (units (u nknown) date) Patient was walking unknown) down the stairs, slipped on the last stair, (unknown) (no (unknown) (unknown) intracranial (units (u nknown) date) hemorrhage versus unknown) other. Will obtain labs, UA, EKG, chest x-ray, (unknown) (no (unknown) (unknown) lightheadedness, (units (unknown) date) Denies unknown) palpitations, Denies dyspnea, Denies dyspnea on exertion (unknown) (no (unknown) (unknown) marital status: (units (unknown) date) unknown) (unknown) (no (unknown) (unknown) metoprolol (units (unk nown) date) succinate 25 mg 25 unknown) mg PO DAILY #30 tabs 10/30/21 (unknown) (no (unknown) (unknown) metoprolol (units (unk nown) date) succinate 25 mg unknown) tablet extended release 24 hr (unknown) (no (unknown) (unknown) morning. Patient's (units (unknown) date) who was unknown) present, clarified that there was no doctor's (unknown) (no (unknown) (unknown) neck pain, Denies (units (unknown) date) sore throat and unknown) Denies throat swelling (unknown) (no (unknown) (unknown) not taking the (units (unknown) date) Eliquis. It is unknown) unclear if patient is compliant with metoprolol. (unknown) (no (unknown) (unknown) numbness, Denies (units (unknown) date) tingling and unknown) Reports weakness (unknown) (no (unknown) (unknown) occupational (units (u nknown) date) status: previously unknown) employed (unknown) (no (unknown) (unknown) oriented to the (units (unknown) date) day of the week. unknown) Patient's states that he has been having (unknown) (no (unknown) (unknown) patient's (units (unknown) date) states that his unknown) last drink was last night, however patient (unknown) (no (unknown) (unknown) recalls that his (units (unknown) date) last drink was last unknown) Friday. Patient does not appear (unknown) (no (unknown) (unknown) recommended to take (units (unknown) date) Eliquis for the unknown) AFib, however feet confirms today that he is (unknown) (no (unknown) (unknown) short-term memory (units (unknown) date) issues for the last unknown) several years. It is unclear if patient (unknown) (no (unknown) (unknown) since he was (units (u nknown) date) feeling weak. unknown) Unsure if he hit his head. There was no loss of (unknown) (no (unknown) (unknown) since it RX'd'. (units (unknown) date) unknown) (unknown) (no (unknown) (unknown) somewhat confused, (units (unknown) date) stated that he fell unknown) when he went to see the doctor this (unknown) (no (unknown) (unknown) states that he (units (unknown) date) experiences AFib on unknown) and off, however it has been prolonged for 2 (unknown) (no (unknown) (unknown) substance use (units ( unknown) date) type: does not use unknown) (unknown) (no (unknown) (unknown) suicidal ideation (units (unknown) date) unknown) (unknown) (no (unknown) (unknown) tablet,extended (units (unknown) date) release 24 hr unknown) (unknown) (no (unknown) (unknown) that his mental (units (unknown) date) state is much clear unknown) when he is not drinking hard liquor. (unknown) (no (unknown) (unknown) troponin, ETOH, CT (units (unknown) date) head, CT C-spine, unknown) CT chest. Patient is in AFib in the ED, (unknown) (no (unknown) (unknown) versus dehydration (units (unknown) date) versus dementia unknown) versus fracture/dislocatio n versus (unknown) (no (unknown) (unknown) wheezing (units (unkno wn) date) unknown) (unknown) (no (unknown) (unknown) withdrawal (units (unk nown) date) presents to the ED unknown) with 2 days of palpitations from AFib. Concern (unknown) (no (unknown) (unknown) withdrawal (units (unk nown) date) presents to the ED unknown) with 2 days of palpitations from AFib. Patient Result panel [id number] (unknown) (no (unknown) (unknown) (no value) (units (unk nown) date) unknown) (unknown) (no (unknown) (unknown) 08/20/22 08/20/22 (units (unknown) date) 08/20/22 unknown) Range/Units (unknown) (no (unknown) (unknown) 08/20/22 17:35 (units (unknown) date) unknown) (unknown) (no (unknown) (unknown) 08/20/22 17:36 (units (unknown) date) unknown) (unknown) (no (unknown) (unknown) 08/20/22 17:49 (units (unknown) date) unknown) (unknown) (no (unknown) (unknown) 08/20/22 18:41 (units (unknown) date) unknown) (unknown) (no (unknown) (unknown) 08/20/22 18:42 (units (unknown) date) unknown) (unknown) (no (unknown) (unknown) 08/20/22 18:43 (units (unknown) date) unknown) (unknown) (no (unknown) (unknown) 08/20/22 (units (unkno wn) date) Range/Units unknown) (unknown) (no (unknown) (unknown) 08/20/22 (units (unkno wn) date) unknown) (unknown) (no (unknown) (unknown) [id number] (units (unkno wn) date) unknown) (unknown) (no (unknown) (unknown) 10 mg PO QAM Qty: (units (unknown) date) 45 1RF unknown) (unknown) (no (unknown) (unknown) 17:29 08/20/22 (units (unknown) date) unknown) (unknown) (no (unknown) (unknown) 17:32 08/20/22 (units (unknown) date) unknown) (unknown) (no (unknown) (unknown) 17:35 17:35 17:35 (units (unknown) date) unknown) (unknown) (no (unknown) (unknown) 17:35 (units (unkno wn) date) unknown) (unknown) (no (unknown) (unknown) 17:55 08/20/22 (units (unknown) date) unknown) (unknown) (no (unknown) (unknown) 17:55 (units (unkno wn) date) unknown) (unknown) (no (unknown) (unknown) 18:00 08/20/22 (units (unknown) date) unknown) (unknown) (no (unknown) (unknown) 18:00 (units (unkno wn) date) unknown) (unknown) (no (unknown) (unknown) 25 mg PO DAILY (units (unknown) date) Qty: 30 0RF unknown) (unknown) (no (unknown) (unknown) 76-year-old male (units (unknown) date) with past medical unknown) history AFib, alcohol use disorder, alcohol (unknown) (no (unknown) (unknown) ALT (<50) IU/L (units (unknown) date) unknown) (unknown) (no (unknown) (unknown) ALT 40 (<50) IU/L (units (unknown) date) unknown) (unknown) (no (unknown) (unknown) APTT (26-36) (units (u nknown) date) SECONDS unknown) (unknown) (no (unknown) (unknown) APTT 27 (26-36) (units (unknown) date) SECONDS unknown) (unknown) (no (unknown) (unknown) AST (17-59) IU/L (units (unknown) date) unknown) (unknown) (no (unknown) (unknown) AST 57 (17-59) (units (unknown) date) IU/L unknown) (unknown) (no (unknown) (unknown) Age/Sex: 76 / M (units (unknown) date) unknown) (unknown) (no (unknown) (unknown) Albumin (3.5-5.0) (units (unknown) date) g/dL unknown) (unknown) (no (unknown) (unknown) Albumin 4.1 (units (un known) date) (3.5-5.0) g/dL unknown) (unknown) (no (unknown) (unknown) Albumin/Globulin (units (unknown) date) Ratio (1.0-2.8) unknown) (unknown) (no (unknown) (unknown) Albumin/Globulin (units (unknown) date) Ratio 1.6 (1.0-2.8) unknown) (unknown) (no (unknown) (unknown) Alcohol abuse (units ( unknown) date) unknown) (unknown) (no (unknown) (unknown) Alcohol type: (units ( unknown) date) beer, wine and hard unknown) liquor (unknown) (no (unknown) (unknown) Alcohol withdrawal (units (unknown) date) delirium unknown) (unknown) (no (unknown) (unknown) Alcohol withdrawal (units (unknown) date) unknown) (unknown) (no (unknown) (unknown) Alkaline (units (unkno wn) date) Phosphatase unknown) (38-126) U/L (unknown) (no (unknown) (unknown) Alkaline (units (unkno wn) date) Phosphatase 67 unknown) (38-126) U/L (unknown) (no (unknown) (unknown) Allergic/Immunolog (units (unknown) date) ic unknown) (unknown) (no (unknown) (unknown) Allergic/Immunolog (units (unknown) date) ic: Denies unknown) urticaria, Denies throat swelling and Denies (unknown) (no (unknown) (unknown) Allergies (units (unkn own) date) unknown) (unknown) (no (unknown) (unknown) Allergy/AdvReac (units (unknown) date) Type Severity unknown) Reaction Status Date / Time (unknown) (no (unknown) (unknown) Anemia, chronic (units (unknown) date) disease unknown) (unknown) (no (unknown) (unknown) Aspirin (Aspirin (units (unknown) date) 81 Mg Chew Tab) 324 unknown) mg PO NOW ONE (unknown) (no (unknown) (unknown) Atrial (units (unkno wn) date) fibrillation unknown) (unknown) (no (unknown) (unknown) Auscultation:?leigh (units (unknown) date) r to auscultation unknown) bilaterally (unknown) (no (unknown) (unknown) BPH w urinary (units ( unknown) date) obs/LUTS unknown) (unknown) (no (unknown) (unknown) BUN (9-20) mg/dL (units (unknown) date) unknown) (unknown) (no (unknown) (unknown) BUN 16 (9-20) (units ( unknown) date) mg/dL unknown) (unknown) (no (unknown) (unknown) BUN/Creatinine (units (unknown) date) Ratio (6-22) unknown) (unknown) (no (unknown) (unknown) BUN/Creatinine (units (unknown) date) Ratio 15.2 (6-22) unknown) (unknown) (no (unknown) (unknown) Baso # (Auto) (units ( unknown) date) (0-100) /uL unknown) (unknown) (no (unknown) (unknown) Baso # (Auto) 0 (units (unknown) date) (0-100) /uL unknown) (unknown) (no (unknown) (unknown) Baso % (Auto) (units ( unknown) date) (0-2) % unknown) (unknown) (no (unknown) (unknown) Baso % (Auto) 0.4 (units (unknown) date) (0-2) % unknown) (unknown) (no (unknown) (unknown) Bedside Urine (units ( unknown) date) Bilirubin - unknown) Negative (unknown) (no (unknown) (unknown) Bedside Urine (units ( unknown) date) Glucose Negative unknown) (unknown) (no (unknown) (unknown) Bedside Urine (units ( unknown) date) Ketone - Negative unknown) (unknown) (no (unknown) (unknown) Bedside Urine (units ( unknown) date) Leukocytes - unknown) Negative (unknown) (no (unknown) (unknown) Bedside Urine (units ( unknown) date) Nitrite - Negative unknown) (unknown) (no (unknown) (unknown) Bedside Urine (units ( unknown) date) Occult Blood +/ unknown) (unknown) (no (unknown) (unknown) Bedside Urine (units ( unknown) date) Protein - Negative unknown) (unknown) (no (unknown) (unknown) Bedside Urine (units ( unknown) date) Urobilinogen - unknown) Negative (unknown) (no (unknown) (unknown) Bedside Urine pH (units (unknown) date) 6.5 unknown) (unknown) (no (unknown) (unknown) Blood Pressure (units (unknown) date) 110/79 126/82 unknown) (unknown) (no (unknown) (unknown) Blood Pressure (units (unknown) date) 114/70 08/20/22 unknown) 17:29 (unknown) (no (unknown) (unknown) Blood Pressure (units (unknown) date) 114/70 114/70 unknown) (unknown) (no (unknown) (unknown) CT cervical spine (units (unknown) date) wo con Stat unknown) (unknown) (no (unknown) (unknown) CT chest wo con (units (unknown) date) Stat unknown) (unknown) (no (unknown) (unknown) CT head/brain wo (units (unknown) date) con Stat unknown) (unknown) (no (unknown) (unknown) Calcium (8.4-10.2) (units (unknown) date) mg/dL unknown) (unknown) (no (unknown) (unknown) Calcium 8.7 (units (un known) date) (8.4-10.2) mg/dL unknown) (unknown) (no (unknown) (unknown) Carbon Dioxide (units (unknown) date) (22-32) mmol/L unknown) (unknown) (no (unknown) (unknown) Carbon Dioxide 24 (units (unknown) date) (22-32) mmol/L unknown) (unknown) (no (unknown) (unknown) Cardio (units (unkno wn) date) unknown) (unknown) (no (unknown) (unknown) Cardiomyopathy (units (unknown) date) unknown) (unknown) (no (unknown) (unknown) Cardiovascular (units (unknown) date) unknown) (unknown) (no (unknown) (unknown) Cardiovascular: (units (unknown) date) Denies chest pain, unknown) Reports irregular heart rhythm, Denies (unknown) (no (unknown) (unknown) Chief Complaint: (units (unknown) date) Arrhythmia/Palpitat unknown) ions (unknown) (no (unknown) (unknown) Chloride (98-107) (units (unknown) date) mmol/L unknown) (unknown) (no (unknown) (unknown) Chloride 97 L (units ( unknown) date) (98-107) mmol/L unknown) (unknown) (no (unknown) (unknown) Complete Blood (units (unknown) date) Count AUTO DIFF unknown) Stat (unknown) (no (unknown) (unknown) Comprehensive (units ( unknown) date) Metabolic Panel unknown) Stat (unknown) (no (unknown) (unknown) Const (units (o wn) date) unknown) (unknown) (no (unknown) (unknown) Constitutional (units (unknown) date) unknown) (unknown) (no (unknown) (unknown) Constitutional: (units (unknown) date) Denies chills, unknown) Denies fatigue, Denies fever(s), Denies frequent (unknown) (no (unknown) (unknown) Course (units (unkno wn) date) unknown) (unknown) (no (unknown) (unknown) Creatinine (units (unk nown) date) (0.66-1.25) mg/dL unknown) (unknown) (no (unknown) (unknown) Creatinine 1.05 (units (unknown) date) (0.66-1.25) mg/dL unknown) (unknown) (no (unknown) (unknown) : 1945 (units (unknown) date) Acct:[id number] unknown) (unknown) (no (unknown) (unknown) Date of Service: (units (unknown) date) 08/20/22 unknown) (unknown) (no (unknown) (unknown) Denies depression, (units (unknown) date) Reports memory unknown) loss, Denies homicidal ideation and Denies (unknown) (no (unknown) (unknown) Denies frequent (units (unknown) date) falls, Denies loss unknown) of vision, Reports memory loss, Denies (unknown) (no (unknown) (unknown) Denies loss of (units (unknown) date) vision unknown) (unknown) (no (unknown) (unknown) Denies numbness (units (unknown) date) and Denies tingling unknown) (unknown) (no (unknown) (unknown) Departure (units (unkn own) date) unknown) (unknown) (no (unknown) (unknown) Discharge Plan (units (unknown) date) unknown) (unknown) (no (unknown) (unknown) Discontinued (units (u nknown) date) Medications unknown) (unknown) (no (unknown) (unknown) Documented By: MLM (units (unknown) date) unknown) (unknown) (no (unknown) (unknown) ED Orders (units (unkn own) date) unknown) (unknown) (no (unknown) (unknown) EKG-12 Lead Stat (units (unknown) date) unknown) (unknown) (no (unknown) (unknown) ENT (units (unkno wn) date) unknown) (unknown) (no (unknown) (unknown) ER Physician: (units ( unknown) date) Sascha,Hyma P.A-C unknown) (unknown) (no (unknown) (unknown) Ears, Nose, Mouth, (units (unknown) date) and Throat: Denies unknown) change in voice, Denies dizziness, Reports (unknown) (no (unknown) (unknown) Ears:?hearing (units ( unknown) date) grossly normal unknown) bilaterally (unknown) (no (unknown) (unknown) Effort + (units (unkno wn) date) Inspection:?normal unknown) respiratory effort (unknown) (no (unknown) (unknown) Emergency Report (units (unknown) date) unknown) (unknown) (no (unknown) (unknown) Endocrine (units (unkn own) date) unknown) (unknown) (no (unknown) (unknown) Endocrine: Denies (units (unknown) date) fatigue, Denies unknown) flushing and Denies palpitations (unknown) (no (unknown) (unknown) Eos # (Auto) (units (u nknown) date) (0-450) /uL unknown) (unknown) (no (unknown) (unknown) Eos # (Auto) 0 (units (unknown) date) (0-450) /uL unknown) (unknown) (no (unknown) (unknown) Eos % (Auto) (2-4) (units (unknown) date) % unknown) (unknown) (no (unknown) (unknown) Eos % (Auto) 0.1 L (units (unknown) date) (2-4) % unknown) (unknown) (no (unknown) (unknown) Esterase (units (unkno wn) date) unknown) (unknown) (no (unknown) (unknown) Estimated GFR > 60 (units (unknown) date) (>60) mL/min unknown) (unknown) (no (unknown) (unknown) Estimated GFR (units ( unknown) date) (>60) mL/min unknown) (unknown) (no (unknown) (unknown) Ethanol (ETOH) (units (unknown) date) Stat unknown) (unknown) (no (unknown) (unknown) Ethyl Alcohol < 10 (units (unknown) date) ( - 10) mg/dL unknown) (unknown) (no (unknown) (unknown) Ethyl Alcohol ( - (units (unknown) date) 10) mg/dL unknown) (unknown) (no (unknown) (unknown) Exam Narrative: (units (unknown) date) unknown) (unknown) (no (unknown) (unknown) Exam (units (unkno wn) date) unknown) (unknown) (no (unknown) (unknown) Eyes (units (unkno wn) date) unknown) (unknown) (no (unknown) (unknown) Eyes: Denies (units (u nknown) date) change in vision, unknown) Denies eye discharge, Denies irritation and (unknown) (no (unknown) (unknown) Face and (units (unkno wn) date) sinus:?normal unknown) facial exam and sinuses nontender (unknown) (no (unknown) (unknown) Family History (units (unknown) date) (Reviewed 12/25/21 unknown) @ 16:19 by Pop Delgado PA-C) (unknown) (no (unknown) (unknown) Former smoker (units ( unknown) date) unknown) (unknown) (no (unknown) (unknown) Jeannette Chaudhary, (units (unknown) date) MD [Primary Care unknown) Provider] (unknown) (no (unknown) (unknown) Gastrointestinal (units (unknown) date) unknown) (unknown) (no (unknown) (unknown) Gastrointestinal: (units (unknown) date) Denies abdominal unknown) pain, Denies change in bowel habits, Denies (unknown) (no (unknown) (unknown) General (units (unkno wn) date) unknown) (unknown) (no (unknown) (unknown) General:?appearanc (units (unknown) date) e normal, both eyes unknown) and all related structures (unknown) (no (unknown) (unknown) General:?cooperati (units (unknown) date) ve, healthy unknown) appearing and comfortable (unknown) (no (unknown) (unknown) General:?patient (units (unknown) date) alert, patient unknown) awake and patient oriented x3; CIWA score 9 on (unknown) (no (unknown) (unknown) Genitourinary (units ( unknown) date) unknown) (unknown) (no (unknown) (unknown) Genitourinary: (units (unknown) date) Denies hematuria, unknown) Denies flank pain, Denies urinary incontinence (unknown) (no (unknown) (unknown) Globulin (1.7-4.1) (units (unknown) date) g/dL unknown) (unknown) (no (unknown) (unknown) Globulin 2.5 (units (u nknown) date) (1.7-4.1) g/dL unknown) (unknown) (no (unknown) (unknown) Glucose (80-110) (units (unknown) date) mg/dL unknown) (unknown) (no (unknown) (unknown) Glucose 100 (units (un known) date) (80-110) mg/dL unknown) (unknown) (no (unknown) (unknown) Gout (units (unkno wn) date) unknown) (unknown) (no (unknown) (unknown) HENMT (units (unkno wn) date) unknown) (unknown) (no (unknown) (unknown) HPI - (units (unkno wn) date) Arrhythmia/Palpitat unknown) ions (unknown) (no (unknown) (unknown) HPI narrative: (units (unknown) date) unknown) (unknown) (no (unknown) (unknown) HTN (hypertension) (units (unknown) date) unknown) (unknown) (no (unknown) (unknown) Hct (41-53) % (units ( unknown) date) unknown) (unknown) (no (unknown) (unknown) Hct 31.4 L (41-53) (units (unknown) date) % unknown) (unknown) (no (unknown) (unknown) Head:?normal to (units (unknown) date) inspection unknown) (unknown) (no (unknown) (unknown) Hematologic/Lympha (units (unknown) date) tic unknown) (unknown) (no (unknown) (unknown) Hematologic/Lympha (units (unknown) date) tic: Denies easy unknown) bruising (unknown) (no (unknown) (unknown) Hgb (13.5-17.5) (units (unknown) date) g/dL unknown) (unknown) (no (unknown) (unknown) Hgb 11.0 L (units (unk nown) date) (13.5-17.5) g/dL unknown) (unknown) (no (unknown) (unknown) History of Present (units (unknown) date) Illness unknown) (unknown) (no (unknown) (unknown) 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 (unknown) (no (unknown) (unknown) History of (units (unk nown) date) percutaneous unknown) endoscopic gastrostomy (-2020) (unknown) (no (unknown) (unknown) INR (0.9-1.3) (units ( unknown) date) unknown) (unknown) (no (unknown) (unknown) INR 1.1 (0.9-1.3) (units (unknown) date) unknown) (unknown) (no (unknown) (unknown) Initial Vital (units ( unknown) date) Signs unknown) (unknown) (no (unknown) (unknown) Initial Vital (units ( unknown) date) Signs: unknown) (unknown) (no (unknown) (unknown) Integumentary/Veena (units (unknown) date) sts unknown) (unknown) (no (unknown) (unknown) [facility] (units (unknown) date) [address] unknown) [place] [address] (unknown) (no (unknown) (unknown) Lab Data (units (unkno wn) date) unknown) (unknown) (no (unknown) (unknown) Lab Results (units (un known) date) unknown) (unknown) (no (unknown) (unknown) Label Comments: (units (unknown) date) unknown) (unknown) (no (unknown) (unknown) Labs: (units (unkno wn) date) unknown) (unknown) (no (unknown) (unknown) Last Admin: (units (un known) date) 08/20/22 18:16 unknown) Dose: 324 mg (unknown) (no (unknown) (unknown) Last Admin: (units (un known) date) 08/20/22 18:32 unknown) Dose: 1 mg (unknown) (no (unknown) (unknown) Last Admin: (units (un known) date) 08/20/22 18:33 unknown) Dose: 1,000 mls/hr (unknown) (no (unknown) (unknown) Lipase (23-300) (units (unknown) date) U/L unknown) (unknown) (no (unknown) (unknown) Lipase 127 (units (unk nown) date) (23-300) U/L unknown) (unknown) (no (unknown) (unknown) Lipase Stat (units (un known) date) unknown) (unknown) (no (unknown) (unknown) Lorazepam (units (unkn own) date) (Lorazepam 2 Mg/Ml unknown) Inj) 1 mg IV NOW ONE (unknown) (no (unknown) (unknown) Lymph # (Auto) (units (unknown) date) (7114-3755) /uL unknown) (unknown) (no (unknown) (unknown) Lymph # (Auto) 500 (units (unknown) date) L (6794-6999) /uL unknown) (unknown) (no (unknown) (unknown) Lymph % (Auto) (units (unknown) date) (25-40) % unknown) (unknown) (no (unknown) (unknown) Lymph % (Auto) 7.1 (units (unknown) date) L (25-40) % unknown) (unknown) (no (unknown) (unknown) MCH (26-34) PG (units (unknown) date) unknown) (unknown) (no (unknown) (unknown) MCH 36.0 H (26-34) (units (unknown) date) PG unknown) (unknown) (no (unknown) (unknown) MCHC (30-36) % (units (unknown) date) unknown) (unknown) (no (unknown) (unknown) MCHC 34.9 (30-36) (units (unknown) date) % unknown) (unknown) (no (unknown) (unknown) MCV (80-100) fL (units (unknown) date) unknown) (unknown) (no (unknown) (unknown) MCV 103.2 H (units (un known) date) (80-100) fL unknown) (unknown) (no (unknown) (unknown) MDM - (units (unkno wn) date) Arrhythmia/Palpitat unknown) ions (unknown) (no (unknown) (unknown) MDM Narrative (units ( unknown) date) unknown) (unknown) (no (unknown) (unknown) Magnesium (units (unkn own) date) (1.6-2.3) mg/dL unknown) (unknown) (no (unknown) (unknown) Magnesium 1.2 L (units (unknown) date) (1.6-2.3) mg/dL unknown) (unknown) (no (unknown) (unknown) Magnesium Stat (units (unknown) date) unknown) (unknown) (no (unknown) (unknown) Medical History (units (unknown) date) (Reviewed 12/25/21 unknown) @ 16:19 by Pop Delgado PA-C) (unknown) (no (unknown) (unknown) Medical decision (units (unknown) date) making narrative: unknown) (unknown) (no (unknown) (unknown) Medication (units (unk nown) date) Instructions unknown) Recorded (unknown) (no (unknown) (unknown) Mixed (units (unkno wn) date) hyperlipidemia unknown) (unknown) (no (unknown) (unknown) Mode of arrival: (units (unknown) date) Wheelchair unknown) (unknown) (no (unknown) (unknown) [place] # (Auto) (units ( unknown) date) (0-900) /uL unknown) (unknown) (no (unknown) (unknown) [place] # (Auto) 600 (units (unknown) date) (0-900) /uL unknown) (unknown) (no (unknown) (unknown) [place] % (Auto) (units ( unknown) date) (3-14) % unknown) (unknown) (no (unknown) (unknown) [place] % (Auto) 8.1 (units (unknown) date) (3-14) % unknown) (unknown) (no (unknown) (unknown) Mother Lung cancer (units (unknown) date) unknown) (unknown) (no (unknown) (unknown) Mouth:?oral (units (un known) date) mucosae normal unknown) (unknown) (no (unknown) (unknown) Musculoskeletal (units (unknown) date) unknown) (unknown) (no (unknown) (unknown) Musculoskeletal: (units (unknown) date) Denies back pain, unknown) Denies muscle weakness, Reports neck pain, (unknown) (no (unknown) (unknown) Narrative (units (unkn own) date) unknown) (unknown) (no (unknown) (unknown) Neck (units (unkno wn) date) unknown) (unknown) (no (unknown) (unknown) Neck:?normal (units (u nknown) date) visual inspection unknown) and no lymphadenopathy noted (unknown) (no (unknown) (unknown) Neuro (units (unkno wn) date) unknown) (unknown) (no (unknown) (unknown) Neurologic (units (unk nown) date) unknown) (unknown) (no (unknown) (unknown) Neurologic: Denies (units (unknown) date) behavioral changes, unknown) Reports confusion, Denies dizziness, (unknown) (no (unknown) (unknown) Neut # (Auto) (units ( unknown) date) (5593-8293) /uL unknown) (unknown) (no (unknown) (unknown) Neut # (Auto) 6200 (units (unknown) date) (3434-2475) /uL unknown) (unknown) (no (unknown) (unknown) Neut % (Auto) (units ( unknown) date) (50-75) % unknown) (unknown) (no (unknown) (unknown) Neut % (Auto) 84.3 (units (unknown) date) H (50-75) % unknown) (unknown) (no (unknown) (unknown) No Action (units (unkn own) date) unknown) (unknown) (no (unknown) (unknown) Nose:?external (units (unknown) date) nose normal unknown) (unknown) (no (unknown) (unknown) Ordered: (units (unkno wn) date) unknown) (unknown) (no (unknown) (unknown) Orders (units (unkno wn) date) unknown) (unknown) (no (unknown) (unknown) Oxygen Delivery (units (unknown) date) Method 08/20/22 unknown) 17:29 (unknown) (no (unknown) (unknown) Oxygen Delivery (units (unknown) date) Method Room Air unknown) Room Air (unknown) (no (unknown) (unknown) Oxygen Delivery (units (unknown) date) Method Room Air unknown) (unknown) (no (unknown) (unknown) PT (10.1-12.7) (units (unknown) date) SECONDS unknown) (unknown) (no (unknown) (unknown) PT 12.7 (units (unkno wn) date) (10.1-12.7) SECONDS unknown) (unknown) (no (unknown) (unknown) Partial (units (unkno wn) date) Thromboplastin Time unknown) Stat (unknown) (no (unknown) (unknown) Patient History (units (unknown) date) unknown) (unknown) (no (unknown) (unknown) Patient denies (units ( unknown) date) fever, chills, unknown) chest pain, shortness of breath, nausea, vomiting, (unknown) (no (unknown) (unknown) Patient is in AFib (units (unknown) date) in the ED, however unknown) is rate is controlled. (unknown) (no (unknown) (unknown) Patient's did (units (unknown) date) state that he unknown) suffered a minor fall just prior to arrival (unknown) (no (unknown) (unknown) Patient: (units (unkno wn) date) Eleazar Charles Chandrika unknown) MR#: [id number] (unknown) (no (unknown) (unknown) Plt Count (units (unkn own) date) (150-400) X103/uL unknown) (unknown) (no (unknown) (unknown) Plt Count 107 L (units (unknown) date) (150-400) X103/uL unknown) (unknown) (no (unknown) (unknown) Potassium (units (unkn own) date) (3.4-5.1) mmol/L unknown) (unknown) (no (unknown) (unknown) Potassium 4.8 (units ( unknown) date) (3.4-5.1) mmol/L unknown) (unknown) (no (unknown) (unknown) Prescriptions: (units (unknown) date) unknown) (unknown) (no (unknown) (unknown) Previous Rx's (units ( unknown) date) unknown) (unknown) (no (unknown) (unknown) Prothrombin Time (units (unknown) date) INR Stat unknown) (unknown) (no (unknown) (unknown) Psychiatric (units (un known) date) unknown) (unknown) (no (unknown) (unknown) Psychiatric: (units (u nknown) date) Denies anxiety, unknown) Denies behavioral changes, Reports confusion, (unknown) (no (unknown) (unknown) Pt reports taking (units (unknown) date) every other day, at unknown) best. Also stated' only takes 2 pills, (unknown) (no (unknown) (unknown) Pulse Oximetry 93 (units (unknown) date) 08/20/22 17:29 unknown) (unknown) (no (unknown) (unknown) Pulse Oximetry 93 (units (unknown) date) 96 unknown) (unknown) (no (unknown) (unknown) Pulse Oximetry 98 (units (unknown) date) unknown) (unknown) (no (unknown) (unknown) Pulse Rate 88 (units ( unknown) date) unknown) (unknown) (no (unknown) (unknown) Pulse Rate 96 H (units (unknown) date) 08/20/22 17:29 unknown) (unknown) (no (unknown) (unknown) Pulse Rate 96 H 88 (units (unknown) date) unknown) (unknown) (no (unknown) (unknown) RBC (4.5-5.9) (units ( unknown) date) X106/uL unknown) (unknown) (no (unknown) (unknown) RBC 3.05 L (units (unk nown) date) (4.5-5.9) X106/uL unknown) (unknown) (no (unknown) (unknown) RDW (11.6-14.8) % (units (unknown) date) unknown) (unknown) (no (unknown) (unknown) RDW 13.7 (units (unkno wn) date) (11.6-14.8) % unknown) (unknown) (no (unknown) (unknown) ROS Unobtainable: (units (unknown) date) All systems unknown) reviewed + are unremarkable except as noted in HPI (unknown) (no (unknown) (unknown) Rate:?regular rate (units (unknown) date) unknown) (unknown) (no (unknown) (unknown) Referrals: (units (unk nown) date) unknown) (unknown) (no (unknown) (unknown) Related Data (units (u nknown) date) unknown) (unknown) (no (unknown) (unknown) Resp (units (unkno wn) date) unknown) (unknown) (no (unknown) (unknown) Respiratory Rate (units (unknown) date) 20 08/20/22 17:29 unknown) (unknown) (no (unknown) (unknown) Respiratory Rate (units (unknown) date) 20 21 unknown) (unknown) (no (unknown) (unknown) Respiratory Rate (units (unknown) date) 21 unknown) (unknown) (no (unknown) (unknown) Respiratory (units (un known) date) unknown) (unknown) (no (unknown) (unknown) Respiratory: Denies (units (unknown) date) cough, Denies unknown) dyspnea, Denies dyspnea on exertion and Denies (unknown) (no (unknown) (unknown) Review of Systems (units (unknown) date) unknown) (unknown) (no (unknown) (unknown) Rhythm:?afib (units (u nknown) date) unknown) (unknown) (no (unknown) (unknown) Signed By: (units (unk nown) date) unknown) (unknown) (no (unknown) (unknown) Sister Rheumatoid (units (unknown) date) arthritis unknown) (unknown) (no (unknown) (unknown) Skin/Breast: (units (u nknown) date) Denies pruritus, unknown) Denies erythema, Denies rash and Denies wounds (unknown) (no (unknown) (unknown) Smoking Status: (units (unknown) date) Former smoker unknown) (unknown) (no (unknown) (unknown) Social History (units (unknown) date) (Reviewed 12/25/21 unknown) @ 16:19 by Pop Delgado PA-C) (unknown) (no (unknown) (unknown) Sodium (137-145) (units (unknown) date) mmol/L unknown) (unknown) (no (unknown) (unknown) Sodium 130 L (units (u nknown) date) (137-145) mmol/L unknown) (unknown) (no (unknown) (unknown) Sodium Chloride (units (unknown) date) (Normal Saline unknown) 0.9%) 1,000 mls @ 1,000 mls/hr IV BOLUS ONE (unknown) (no (unknown) (unknown) Source: patient (units (unknown) date) unknown) (unknown) (no (unknown) (unknown) Stated Complaint: (units (unknown) date) a-fib/passed out unknown) this morning (unknown) (no (unknown) (unknown) Stop: 08/20/22 (units (unknown) date) 17:37 unknown) (unknown) (no (unknown) (unknown) Stop: 08/20/22 (units (unknown) date) 18:21 unknown) (unknown) (no (unknown) (unknown) Stop: 08/20/22 (units (unknown) date) 19:20 unknown) (unknown) (no (unknown) (unknown) Substance Use (units ( unknown) date) Type: does not use unknown) (unknown) (no (unknown) (unknown) Surgical History (units (unknown) date) (Reviewed 12/25/21 unknown) @ 16:19 by Pop Delgado PA-C) (unknown) (no (unknown) (unknown) Temperature 98.6 F (units (unknown) date) 08/20/22 17:29 unknown) (unknown) (no (unknown) (unknown) Temperature 98.6 F (units (unknown) date) unknown) (unknown) (no (unknown) (unknown) Temperature (units (un known) date) unknown) (unknown) (no (unknown) (unknown) Tenderness to (units ( unknown) date) palpation of unknown) right-sided, posterolateral ribs (unknown) (no (unknown) (unknown) Throat:?posterior (units (unknown) date) oropharynx normal unknown) (unknown) (no (unknown) (unknown) Time Seen by (units (u nknown) date) Provider: 08/20/22 unknown) 17:36 (unknown) (no (unknown) (unknown) Total Bilirubin (units (unknown) date) (0.2-1.3) mg/dL unknown) (unknown) (no (unknown) (unknown) Total Bilirubin (units (unknown) date) 1.3 (0.2-1.3) mg/dL unknown) (unknown) (no (unknown) (unknown) Total Creatine (units (unknown) date) Kinase (55-170) U/L unknown) (unknown) (no (unknown) (unknown) Total Creatine (units (unknown) date) Kinase 144 (55-170) unknown) U/L (unknown) (no (unknown) (unknown) Total Protein (units ( unknown) date) (6.3-8.2) g/dL unknown) (unknown) (no (unknown) (unknown) Total Protein 6.6 (units (unknown) date) (6.3-8.2) g/dL unknown) (unknown) (no (unknown) (unknown) Troponin + CK (units ( unknown) date) Cardiac Panel Stat unknown) (unknown) (no (unknown) (unknown) Troponin I (units (unk nown) date) (0.01-0.034) ng/mL unknown) (unknown) (no (unknown) (unknown) Troponin I 0.013 (units (unknown) date) (0.01-0.034) ng/mL unknown) (unknown) (no (unknown) (unknown) Urine Dip (units (unkn own) date) unknown) (unknown) (no (unknown) (unknown) Urine Microscopic (units (unknown) date) Stat unknown) (unknown) (no (unknown) (unknown) Urine Specific (units (unknown) date) [place] 1.010 unknown) (unknown) (no (unknown) (unknown) Vital Signs - 8 hr (units (unknown) date) unknown) (unknown) (no (unknown) (unknown) Vital Signs (units (un known) date) unknown) (unknown) (no (unknown) (unknown) Vital signs: (units (u nknown) date) unknown) (unknown) (no (unknown) (unknown) WBC (4.5-11.0) (units (unknown) date) X103/uL unknown) (unknown) (no (unknown) (unknown) WBC 7.4 (4.5-11.0) (units (unknown) date) X103/uL unknown) (unknown) (no (unknown) (unknown) XR chest 1V Stat (units (unknown) date) unknown) (unknown) (no (unknown) (unknown) [Embedded Image (units (unknown) date) Not Available] unknown) (unknown) (no (unknown) (unknown) abdominal pain, (units (unknown) date) dysuria, unknown) lightheadedness, dizziness, syncope. Patient was (unknown) (no (unknown) (unknown) alcohol intake (units (unknown) date) frequency: 3 or unknown) more drinks per day (unknown) (no (unknown) (unknown) alcohol intake: (units (unknown) date) current unknown) (unknown) (no (unknown) (unknown) amoxicillin (units (un known) date) [AMOXICILLIN] unknown) Allergy Severe SWOLLEN JAW Verified 08/20/22 17:41 (unknown) (no (unknown) (unknown) an assist to get (units (unknown) date) patient into her unknown) car so she could bring him to the ED. (unknown) (no (unknown) (unknown) and Denies (units (unk nown) date) orthopnea unknown) (unknown) (no (unknown) (unknown) and Denies urinary (units (unknown) date) urgency unknown) (unknown) (no (unknown) (unknown) and below (units (unkn own) date) unknown) (unknown) (no (unknown) (unknown) appointment today (units (unknown) date) and that she is not unknown) aware of him falling earlier this morning. (unknown) (no (unknown) (unknown) clindamycin (units (un known) date) [CLINDAMYCIN] unknown) AdvReac Severe C-DIFF Verified 08/20/22 17:41 (unknown) (no (unknown) (unknown) consciousness. (units (unknown) date) Patient's unknown) states that he was unable to get up, she called (unknown) (no (unknown) (unknown) couple of days (units (unknown) date) later he goes back unknown) to buying are liquor. Patient's states (unknown) (no (unknown) (unknown) days which is (units ( unknown) date) longer than normal unknown) for him. Patient endorses palpitations, (unknown) (no (unknown) (unknown) diarrhea, Denies (units (unknown) date) nausea and Denies unknown) vomiting (unknown) (no (unknown) (unknown) drinks hard (units (un known) date) liquor, when he unknown) runs out he resorts to wine or beer. However, a (unknown) (no (unknown) (unknown) falls, Reports (units (unknown) date) lethargy, Reports unknown) poor appetite and Reports weakness (unknown) (no (unknown) (unknown) feeling uneasy. (units (unknown) date) Patient is unknown) accompanied by his . Patient also appears (unknown) (no (unknown) (unknown) for alcohol (units (un known) date) withdrawal versus unknown) alcohol intoxication versus UTI versus pneumonia (unknown) (no (unknown) (unknown) fracture/dislocati (units (unknown) date) on versus unknown) intracranial hemorrhage versus other. Will obtain (unknown) (no (unknown) (unknown) furosemide 20 mg (units (unknown) date) tablet 10 mg PO QAM unknown) #45 tabs 12/15/21 (unknown) (no (unknown) (unknown) furosemide 20 mg (units (unknown) date) tablet unknown) (unknown) (no (unknown) (unknown) had any seizures (units (unknown) date) in the last day or unknown) 2. Patient's states he primarily (unknown) (no (unknown) (unknown) household members: (units (unknown) date) none unknown) (unknown) (no (unknown) (unknown) inital exam (units (un known) date) unknown) (unknown) (no (unknown) (unknown) into the ED. (units (u nknown) date) Patient was walking unknown) down the stairs, slipped on the last stair, (unknown) (no (unknown) (unknown) labs, UA, EKG, (units (unknown) date) chest x-ray, unknown) troponin, ETOH, CT head, CT C-spine, CT chest. (unknown) (no (unknown) (unknown) lightheadedness, (units (unknown) date) Denies unknown) palpitations, Denies dyspnea, Denies dyspnea on exertion (unknown) (no (unknown) (unknown) marital status: (units (unknown) date) unknown) (unknown) (no (unknown) (unknown) metoprolol (units (unk nown) date) succinate 25 mg 25 unknown) mg PO DAILY #30 tabs 10/30/21 (unknown) (no (unknown) (unknown) metoprolol (units (unk nown) date) succinate 25 mg unknown) tablet extended release 24 hr (unknown) (no (unknown) (unknown) morning. Patient's (units (unknown) date) who was unknown) present, clarified that there was no doctor's (unknown) (no (unknown) (unknown) neck pain, Denies (units (unknown) date) sore throat and unknown) Denies throat swelling (unknown) (no (unknown) (unknown) not taking the (units (unknown) date) Eliquis. It is unknown) unclear if patient is compliant with metoprolol (unknown) (no (unknown) (unknown) numbness, Denies (units (unknown) date) tingling and unknown) Reports weakness (unknown) (no (unknown) (unknown) occupational (units (u nknown) date) status: previously unknown) employed (unknown) (no (unknown) (unknown) or furosemide. (units (unknown) date) unknown) (unknown) (no (unknown) (unknown) oriented to the (units (unknown) date) day of the week. unknown) Patient's states that he has been having (unknown) (no (unknown) (unknown) patient's (units (unknown) date) states that his unknown) last drink was last night, however patient (unknown) (no (unknown) (unknown) recalls that his (units (unknown) date) last drink was last unknown) Friday. Patient does not appear (unknown) (no (unknown) (unknown) recommended to take (units (unknown) date) Eliquis for the unknown) AFib, however feet confirms today that he is (unknown) (no (unknown) (unknown) short-term memory (units (unknown) date) issues for the last unknown) several years. It is unclear if patient (unknown) (no (unknown) (unknown) since he was (units (u nknown) date) feeling weak. unknown) Unsure if he hit his head. There was no loss of (unknown) (no (unknown) (unknown) since it RX'd'. (units (unknown) date) unknown) (unknown) (no (unknown) (unknown) somewhat confused, (units (unknown) date) stated that he fell unknown) when he went to see the doctor this (unknown) (no (unknown) (unknown) states that he (units (unknown) date) experiences AFib on unknown) and off, however it has been prolonged for 2 (unknown) (no (unknown) (unknown) substance use (units ( unknown) date) type: does not use unknown) (unknown) (no (unknown) (unknown) suicidal ideation (units (unknown) date) unknown) (unknown) (no (unknown) (unknown) tablet,extended (units (unknown) date) release 24 hr unknown) (unknown) (no (unknown) (unknown) that his mental (units (unknown) date) state is much clear unknown) when he is not drinking hard liquor. (unknown) (no (unknown) (unknown) versus ACS versus (units (unknown) date) CHF exacerbation unknown) versus dehydration versus dementia versus (unknown) (no (unknown) (unknown) wheezing (units (unkno wn) date) unknown) (unknown) (no (unknown) (unknown) withdrawal (units (unk nown) date) presents to the ED unknown) with 2 days of palpitations from AFib. Concern (unknown) (no (unknown) (unknown) withdrawal (units (unk nown) date) presents to the ED unknown) with 2 days of palpitations from AFib. Patient Result panel 924 (unknown) (no date) (unknown) (unknown) 5280 pg/ml (unkn own) (unknown) (no date) (unknown) (unknown) 5280 pg/ml (unkn own) Result panel 925 (unknown) (no (unknown) (unknown) (no value) (units (unk nown) date) unknown) (unknown) (no (unknown) (unknown) <Electronically (units (unknown) date) signed by Lizandro unknown) Leisa Sascha> (unknown) (no (unknown) (unknown) 08/20/22 08/20/22 (units (unknown) date) 08/20/22 unknown) Range/Units (unknown) (no (unknown) (unknown) 08/20/22 17:35 (units (unknown) date) unknown) (unknown) (no (unknown) (unknown) 08/20/22 17:36 (units (unknown) date) unknown) (unknown) (no (unknown) (unknown) 08/20/22 17:49 (units (unknown) date) unknown) (unknown) (no (unknown) (unknown) 08/20/22 18:36 (units (unknown) date) unknown) (unknown) (no (unknown) (unknown) 08/20/22 18:42 (units (unknown) date) unknown) (unknown) (no (unknown) (unknown) 08/20/22 18:43 (units (unknown) date) unknown) (unknown) (no (unknown) (unknown) 08/20/222024 (units ( unknown) date) unknown) (unknown) (no (unknown) (unknown) 08/20/22 (units (unkno wn) date) unknown) (unknown) (no (unknown) (unknown) [id number] (units (unkno wn) date) unknown) (unknown) (no (unknown) (unknown) 10 mg PO QAM Qty: (units (unknown) date) 45 1RF unknown) (unknown) (no (unknown) (unknown) 17:29 08/20/22 (units (unknown) date) unknown) (unknown) (no (unknown) (unknown) 17:32 08/20/22 (units (unknown) date) unknown) (unknown) (no (unknown) (unknown) 17:35 17:35 17:35 (units (unknown) date) unknown) (unknown) (no (unknown) (unknown) 17:35 17:35 18:36 (units (unknown) date) unknown) (unknown) (no (unknown) (unknown) 17:55 08/20/22 (units (unknown) date) unknown) (unknown) (no (unknown) (unknown) 17:55 (units (unkno wn) date) unknown) (unknown) (no (unknown) (unknown) 18:00 08/20/22 (units (unknown) date) unknown) (unknown) (no (unknown) (unknown) 18:00 (units (unkno wn) date) unknown) (unknown) (no (unknown) (unknown) 18:30 08/20/22 (units (unknown) date) unknown) (unknown) (no (unknown) (unknown) 19:00 (units (unkno wn) date) unknown) (unknown) (no (unknown) (unknown) 25 mg PO DAILY (units (unknown) date) Qty: 30 0RF unknown) (unknown) (no (unknown) (unknown) 40 mg PO QAM Qty: (units (unknown) date) 30 0RF unknown) (unknown) (no (unknown) (unknown) 76-year-old male (units (unknown) date) with past medical unknown) history AFib, alcohol use disorder, alcohol (unknown) (no (unknown) (unknown) ALT (<50) IU/L (units (unknown) date) unknown) (unknown) (no (unknown) (unknown) ALT 40 (<50) IU/L (units (unknown) date) unknown) (unknown) (no (unknown) (unknown) APTT (26-36) (units (u nknown) date) SECONDS unknown) (unknown) (no (unknown) (unknown) APTT 27 (26-36) (units (unknown) date) SECONDS unknown) (unknown) (no (unknown) (unknown) AST (17-59) IU/L (units (unknown) date) unknown) (unknown) (no (unknown) (unknown) AST 57 (17-59) (units (unknown) date) IU/L unknown) (unknown) (no (unknown) (unknown) Activity (units (unkno wn) date) Restrictions/Additi unknown) onal Instructions: (unknown) (no (unknown) (unknown) Age/Sex: 76 / M (units (unknown) date) unknown) (unknown) (no (unknown) (unknown) Albumin (3.5-5.0) (units (unknown) date) g/dL unknown) (unknown) (no (unknown) (unknown) Albumin 4.1 (units (un known) date) (3.5-5.0) g/dL unknown) (unknown) (no (unknown) (unknown) Albumin/Globulin (units (unknown) date) Ratio (1.0-2.8) unknown) (unknown) (no (unknown) (unknown) Albumin/Globulin (units (unknown) date) Ratio 1.6 (1.0-2.8) unknown) (unknown) (no (unknown) (unknown) Alcohol abuse (units ( unknown) date) unknown) (unknown) (no (unknown) (unknown) Alcohol type: (units ( unknown) date) beer, wine and hard unknown) liquor (unknown) (no (unknown) (unknown) Alcohol withdrawal (units (unknown) date) delirium unknown) (unknown) (no (unknown) (unknown) Alcohol withdrawal (units (unknown) date) unknown) (unknown) (no (unknown) (unknown) Alkaline (units (unkno wn) date) Phosphatase unknown) (38-126) U/L (unknown) (no (unknown) (unknown) Alkaline (units (unkno wn) date) Phosphatase 67 unknown) (38-126) U/L (unknown) (no (unknown) (unknown) Allergic/Immunolog (units (unknown) date) ic unknown) (unknown) (no (unknown) (unknown) Allergic/Immunolog (units (unknown) date) ic: Denies unknown) urticaria, Denies throat swelling and Denies (unknown) (no (unknown) (unknown) Allergies (units (unkn own) date) unknown) (unknown) (no (unknown) (unknown) Allergy/AdvReac (units (unknown) date) Type Severity unknown) Reaction Status Date / Time (unknown) (no (unknown) (unknown) Anemia, chronic (units (unknown) date) disease unknown) (unknown) (no (unknown) (unknown) Aspirin (Aspirin (units (unknown) date) 81 Mg Chew Tab) 324 unknown) mg PO NOW ONE (unknown) (no (unknown) (unknown) Atrial (units (unkno wn) date) fibrillation unknown) (unknown) (no (unknown) (unknown) Atrial (units (unkno wn) date) fibrillation, CHF unknown) exacerbation, Alcohol withdrawal (unknown) (no (unknown) (unknown) Auscultation:?leigh (units (unknown) date) r to auscultation unknown) bilaterally (unknown) (no (unknown) (unknown) BNP [NT-proBNP (units (unknown) date) (BNP-Adult 18+)] unknown) Stat (unknown) (no (unknown) (unknown) BPH w urinary (units ( unknown) date) obs/LUTS unknown) (unknown) (no (unknown) (unknown) BUN (9-20) mg/dL (units (unknown) date) unknown) (unknown) (no (unknown) (unknown) BUN 16 (9-20) (units ( unknown) date) mg/dL unknown) (unknown) (no (unknown) (unknown) BUN/Creatinine (units (unknown) date) Ratio (6-22) unknown) (unknown) (no (unknown) (unknown) BUN/Creatinine (units (unknown) date) Ratio 15.2 (6-22) unknown) (unknown) (no (unknown) (unknown) Baso # (Auto) (units ( unknown) date) (0-100) /uL unknown) (unknown) (no (unknown) (unknown) Baso # (Auto) 0 (units (unknown) date) (0-100) /uL unknown) (unknown) (no (unknown) (unknown) Baso % (Auto) (units ( unknown) date) (0-2) % unknown) (unknown) (no (unknown) (unknown) Baso % (Auto) 0.4 (units (unknown) date) (0-2) % unknown) (unknown) (no (unknown) (unknown) Bedside Urine (units ( unknown) date) Bilirubin - unknown) Negative (unknown) (no (unknown) (unknown) Bedside Urine (units ( unknown) date) Glucose Negative unknown) (unknown) (no (unknown) (unknown) Bedside Urine (units ( unknown) date) Ketone - Negative unknown) (unknown) (no (unknown) (unknown) Bedside Urine (units ( unknown) date) Leukocytes - unknown) Negative (unknown) (no (unknown) (unknown) Bedside Urine (units ( unknown) date) Nitrite - Negative unknown) (unknown) (no (unknown) (unknown) Bedside Urine (units ( unknown) date) Occult Blood +/ unknown) (unknown) (no (unknown) (unknown) Bedside Urine (units ( unknown) date) Protein - Negative unknown) (unknown) (no (unknown) (unknown) Bedside Urine (units ( unknown) date) Urobilinogen - unknown) Negative (unknown) (no (unknown) (unknown) Bedside Urine pH (units (unknown) date) 6.5 unknown) (unknown) (no (unknown) (unknown) Blood Pressure (units (unknown) date) 110/79 126/82 unknown) (unknown) (no (unknown) (unknown) Blood Pressure (units (unknown) date) 114/70 08/20/22 unknown) 17:29 (unknown) (no (unknown) (unknown) Blood Pressure (units (unknown) date) 114/70 114/ unknown) (unknown) (no (unknown) (unknown) Blood Pressure (units (unknown) date) unknown) (unknown) (no (unknown) (unknown) CK-MB (CK-2) (units (u nknown) date) (<2.37) ng/mL unknown) (unknown) (no (unknown) (unknown) CK-MB (CK-2) 2.54 (units (unknown) date) H (<2.37) ng/mL unknown) (unknown) (no (unknown) (unknown) CK-MB (CK-2) Rel (units (unknown) date) Index (1.5-5.0) % unknown) (unknown) (no (unknown) (unknown) CK-MB (CK-2) Rel (units (unknown) date) Index 1.8 (1.5-5.0) unknown) % (unknown) (no (unknown) (unknown) CT cervical spine (units (unknown) date) wo con Stat unknown) (unknown) (no (unknown) (unknown) CT chest wo con (units (unknown) date) Stat unknown) (unknown) (no (unknown) (unknown) CT head/brain wo (units (unknown) date) con Stat unknown) (unknown) (no (unknown) (unknown) Calcium (8.4-10.2) (units (unknown) date) mg/dL unknown) (unknown) (no (unknown) (unknown) Calcium 8.7 (units (un known) date) (8.4-10.2) mg/dL unknown) (unknown) (no (unknown) (unknown) Carbon Dioxide (units (unknown) date) (22-32) mmol/L unknown) (unknown) (no (unknown) (unknown) Carbon Dioxide 24 (units (unknown) date) (22-32) mmol/L unknown) (unknown) (no (unknown) (unknown) Cardio (units () date) unknown) (unknown) (no (unknown) (unknown) Cardiomyopathy (units (unknown) date) unknown) (unknown) (no (unknown) (unknown) Cardiovascular (units (unknown) date) unknown) (unknown) (no (unknown) (unknown) Cardiovascular: (units (unknown) date) Denies chest pain, unknown) Reports irregular heart rhythm, Denies (unknown) (no (unknown) (unknown) Chief Complaint: (units (unknown) date) Arrhythmia/Palpitat unknown) ions (unknown) (no (unknown) (unknown) Chloride (98-107) (units (unknown) date) mmol/L unknown) (unknown) (no (unknown) (unknown) Chloride 97 L (units ( unknown) date) (98-107) mmol/L unknown) (unknown) (no (unknown) (unknown) Clinical (units () date) Impression: unknown) (unknown) (no (unknown) (unknown) Complete Blood (units (unknown) date) Count AUTO DIFF unknown) Stat (unknown) (no (unknown) (unknown) Comprehensive (units ( unknown) date) Metabolic Panel unknown) Stat (unknown) (no (unknown) (unknown) Const (units () date) unknown) (unknown) (no (unknown) (unknown) Constitutional (units (unknown) date) unknown) (unknown) (no (unknown) (unknown) Constitutional: (units (unknown) date) Denies chills, unknown) Denies fatigue, Denies fever(s), Denies frequent (unknown) (no (unknown) (unknown) Course (units ( wn) date) unknown) (unknown) (no (unknown) (unknown) Creatinine (units (unk n) date) (0.66-1.25) mg/dL unknown) (unknown) (no (unknown) (unknown) Creatinine 1.05 (units (unknown) date) (0.66-1.25) mg/dL unknown) (unknown) (no (unknown) (unknown) : 1945 (units (unknown) date) Acct:[id number] unknown) (unknown) (no (unknown) (unknown) Date of Service: (units (unknown) date) 08/20/22 unknown) (unknown) (no (unknown) (unknown) Denies depression, (units (unknown) date) Reports memory unknown) loss, Denies homicidal ideation and Denies (unknown) (no (unknown) (unknown) Denies frequent (units (unknown) date) falls, Denies loss unknown) of vision, Reports memory loss, Denies (unknown) (no (unknown) (unknown) Denies loss of (units (unknown) date) vision unknown) (unknown) (no (unknown) (unknown) Denies numbness (units (unknown) date) and Denies tingling unknown) (unknown) (no (unknown) (unknown) Departure (units (unkn own) date) unknown) (unknown) (no (unknown) (unknown) Discharge Plan (units (unknown) date) unknown) (unknown) (no (unknown) (unknown) Discontinued (units (u nknown) date) Medications unknown) (unknown) (no (unknown) (unknown) Documented By: MLM (units (unknown) date) unknown) (unknown) (no (unknown) (unknown) ED Orders (units (unkn own) date) unknown) (unknown) (no (unknown) (unknown) EKG-12 Lead Stat (units (unknown) date) unknown) (unknown) (no (unknown) (unknown) ENT (units (unkno wn) date) unknown) (unknown) (no (unknown) (unknown) ER Physician: (units ( unknown) date) Sascha,Hyma P.A-C unknown) (unknown) (no (unknown) (unknown) Ears, Nose, Mouth, (units (unknown) date) and Throat: Denies unknown) change in voice, Denies dizziness, Reports (unknown) (no (unknown) (unknown) Ears:?hearing (units ( unknown) date) grossly normal unknown) bilaterally (unknown) (no (unknown) (unknown) Effort + (units (unkno wn) date) Inspection:?normal unknown) respiratory effort (unknown) (no (unknown) (unknown) Emergency Report (units (unknown) date) unknown) (unknown) (no (unknown) (unknown) Endocrine (units (unkn own) date) unknown) (unknown) (no (unknown) (unknown) Endocrine: Denies (units (unknown) date) fatigue, Denies unknown) flushing and Denies palpitations (unknown) (no (unknown) (unknown) Eos # (Auto) (units (u nknown) date) (0-450) /uL unknown) (unknown) (no (unknown) (unknown) Eos # (Auto) 0 (units (unknown) date) (0-450) /uL unknown) (unknown) (no (unknown) (unknown) Eos % (Auto) (2-4) (units (unknown) date) % unknown) (unknown) (no (unknown) (unknown) Eos % (Auto) 0.1 L (units (unknown) date) (2-4) % unknown) (unknown) (no (unknown) (unknown) Esterase (units (unkno wn) date) unknown) (unknown) (no (unknown) (unknown) Estimated GFR > 60 (units (unknown) date) (>60) mL/min unknown) (unknown) (no (unknown) (unknown) Estimated GFR (units ( unknown) date) (>60) mL/min unknown) (unknown) (no (unknown) (unknown) Ethanol (ETOH) (units (unknown) date) Stat unknown) (unknown) (no (unknown) (unknown) Ethyl Alcohol < 10 (units (unknown) date) ( - 10) mg/dL unknown) (unknown) (no (unknown) (unknown) Ethyl Alcohol ( - (units (unknown) date) 10) mg/dL unknown) (unknown) (no (unknown) (unknown) Exam Narrative: (units (unknown) date) unknown) (unknown) (no (unknown) (unknown) Exam (units (unkno wn) date) unknown) (unknown) (no (unknown) (unknown) Eyes (units (unkno wn) date) unknown) (unknown) (no (unknown) (unknown) Eyes: Denies (units (u nknown) date) change in vision, unknown) Denies eye discharge, Denies irritation and (unknown) (no (unknown) (unknown) Face and (units (unkno wn) date) sinus:?normal unknown) facial exam and sinuses nontender (unknown) (no (unknown) (unknown) Family History (units (unknown) date) (Reviewed 12/25/21 unknown) @ 16:19 by Pop Delgado PA-C) (unknown) (no (unknown) (unknown) Former smoker (units ( unknown) date) unknown) (unknown) (no (unknown) (unknown) Furosemide (units (unk nown) date) (Furosemide 40 Mg/4 unknown) Ml Vial) 40 mg IV NOW ONE (unknown) (no (unknown) (unknown) Jeannette Chaudhary, (units (unknown) date) [Primary Care unknown) Provider] (unknown) (no (unknown) (unknown) Gastrointestinal (units (unknown) date) unknown) (unknown) (no (unknown) (unknown) Gastrointestinal: (units (unknown) date) Denies abdominal unknown) pain, Denies change in bowel habits, Denies (unknown) (no (unknown) (unknown) General (units (unkno wn) date) unknown) (unknown) (no (unknown) (unknown) General:?appearanc (units (unknown) date) e normal, both eyes unknown) and all related structures (unknown) (no (unknown) (unknown) General:?cooperati (units (unknown) date) ve, healthy unknown) appearing and comfortable (unknown) (no (unknown) (unknown) General:?patient (units (unknown) date) alert, patient unknown) awake and patient oriented x3; CIWA score 9 on (unknown) (no (unknown) (unknown) Genitourinary (units ( unknown) date) unknown) (unknown) (no (unknown) (unknown) Genitourinary: (units (unknown) date) Denies hematuria, unknown) Denies flank pain, Denies urinary incontinence (unknown) (no (unknown) (unknown) Globulin (1.7-4.1) (units (unknown) date) g/dL unknown) (unknown) (no (unknown) (unknown) Globulin 2.5 (units (u nknown) date) (1.7-4.1) g/dL unknown) (unknown) (no (unknown) (unknown) Glucose (80-110) (units (unknown) date) mg/dL unknown) (unknown) (no (unknown) (unknown) Glucose 100 (units (un known) date) (80-110) mg/dL unknown) (unknown) (no (unknown) (unknown) Gout (units (unkno wn) date) unknown) (unknown) (no (unknown) (unknown) HENMT (units (unkno wn) date) unknown) (unknown) (no (unknown) (unknown) HPI - (units (unkno wn) date) Arrhythmia/Palpitat unknown) ions (unknown) (no (unknown) (unknown) HPI narrative: (units (unknown) date) unknown) (unknown) (no (unknown) (unknown) HTN (hypertension) (units (unknown) date) unknown) (unknown) (no (unknown) (unknown) Hct (41-53) % (units ( unknown) date) unknown) (unknown) (no (unknown) (unknown) Hct 31.4 L (41-53) (units (unknown) date) % unknown) (unknown) (no (unknown) (unknown) Head:?normal to (units (unknown) date) inspection unknown) (unknown) (no (unknown) (unknown) Hematologic/Lympha (units (unknown) date) tic unknown) (unknown) (no (unknown) (unknown) Hematologic/Lympha (units (unknown) date) tic: Denies easy unknown) bruising (unknown) (no (unknown) (unknown) Hgb (13.5-17.5) (units (unknown) date) g/dL unknown) (unknown) (no (unknown) (unknown) Hgb 11.0 L (units (unk nown) date) (13.5-17.5) g/dL unknown) (unknown) (no (unknown) (unknown) History of Present (units (unknown) date) Illness unknown) (unknown) (no (unknown) (unknown) 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 (unknown) (no (unknown) (unknown) History of (units (unk nown) date) percutaneous unknown) endoscopic gastrostomy (-2019) (unknown) (no (unknown) (unknown) INR (0.9-1.3) (units ( unknown) date) unknown) (unknown) (no (unknown) (unknown) INR 1.1 (0.9-1.3) (units (unknown) date) unknown) (unknown) (no (unknown) (unknown) Initial Vital (units ( unknown) date) Signs unknown) (unknown) (no (unknown) (unknown) Initial Vital (units ( unknown) date) Signs: unknown) (unknown) (no (unknown) (unknown) Instructions: DI (units (unknown) date) for Heart Failure, unknown) DI for Atrial Fibrillation, Alcohol (unknown) (no (unknown) (unknown) Integumentary/Veena (units (unknown) date) sts unknown) (unknown) (no (unknown) (unknown) [facility] (units (unknown) date) [address] unknown) [place] [address] (unknown) (no (unknown) (unknown) Lab Data (units (unkno wn) date) unknown) (unknown) (no (unknown) (unknown) Lab Results (units (un known) date) unknown) (unknown) (no (unknown) (unknown) Label Comments: (units (unknown) date) unknown) (unknown) (no (unknown) (unknown) Labs: (units (unkno wn) date) unknown) (unknown) (no (unknown) (unknown) Last Admin: (units (un known) date) 08/20/22 18:16 unknown) Dose: 324 mg (unknown) (no (unknown) (unknown) Last Admin: (units (un known) date) 08/20/22 18:32 unknown) Dose: 1 mg (unknown) (no (unknown) (unknown) Last Admin: (units (un known) date) 08/20/22 20:11 unknown) Dose: 40 mg (unknown) (no (unknown) (unknown) Last Infusion: (units (unknown) date) 08/20/22 20:14 unknown) Dose: Infused (unknown) (no (unknown) (unknown) Lipase (23-300) (units (unknown) date) U/L unknown) (unknown) (no (unknown) (unknown) Lipase 127 (units (unk nown) date) (23-300) U/L unknown) (unknown) (no (unknown) (unknown) Lipase Stat (units (un known) date) unknown) (unknown) (no (unknown) (unknown) Lorazepam (units (unkn own) date) (Lorazepam 2 Mg/Ml unknown) Inj) 1 mg IV NOW ONE (unknown) (no (unknown) (unknown) Lymph # (Auto) (units (unknown) date) (5366-4554) /uL unknown) (unknown) (no (unknown) (unknown) Lymph # (Auto) 500 (units (unknown) date) L (8173-0804) /uL unknown) (unknown) (no (unknown) (unknown) Lymph % (Auto) (units (unknown) date) (25-40) % unknown) (unknown) (no (unknown) (unknown) Lymph % (Auto) 7.1 (units (unknown) date) L (25-40) % unknown) (unknown) (no (unknown) (unknown) MCH (26-34) PG (units (unknown) date) unknown) (unknown) (no (unknown) (unknown) MCH 36.0 H (26-34) (units (unknown) date) PG unknown) (unknown) (no (unknown) (unknown) MCHC (30-36) % (units (unknown) date) unknown) (unknown) (no (unknown) (unknown) MCHC 34.9 (30-36) (units (unknown) date) % unknown) (unknown) (no (unknown) (unknown) MCV (80-100) fL (units (unknown) date) unknown) (unknown) (no (unknown) (unknown) MCV 103.2 H (units (un known) date) (80-100) fL unknown) (unknown) (no (unknown) (unknown) MDM - (units (unkno wn) date) Arrhythmia/Palpitat unknown) ions (unknown) (no (unknown) (unknown) MDM Narrative (units ( unknown) date) unknown) (unknown) (no (unknown) (unknown) Magnesium (units (unkn own) date) (1.6-2.3) mg/dL unknown) (unknown) (no (unknown) (unknown) Magnesium 1.2 L (units (unknown) date) (1.6-2.3) mg/dL unknown) (unknown) (no (unknown) (unknown) Magnesium Stat (units (unknown) date) unknown) (unknown) (no (unknown) (unknown) Medical History (units (unknown) date) (Reviewed 12/25/21 unknown) @ 16:19 by Pop Delgado PA-C) (unknown) (no (unknown) (unknown) Medical decision (units (unknown) date) making narrative: unknown) (unknown) (no (unknown) (unknown) Medical records (units (unknown) date) reviewed: Yes unknown) (unknown) (no (unknown) (unknown) Medication (units (unk nown) date) Instructions unknown) Recorded (unknown) (no (unknown) (unknown) Mixed (units (unkno wn) date) hyperlipidemia unknown) (unknown) (no (unknown) (unknown) Mode of arrival: (units (unknown) date) Wheelchair unknown) (unknown) (no (unknown) (unknown) [place] # (Auto) (units ( unknown) date) (0-900) /uL unknown) (unknown) (no (unknown) (unknown) [place] # (Auto) 600 (units (unknown) date) (0-900) /uL unknown) (unknown) (no (unknown) (unknown) [place] % (Auto) (units ( unknown) date) (3-14) % unknown) (unknown) (no (unknown) (unknown) [place] % (Auto) 8.1 (units (unknown) date) (3-14) % unknown) (unknown) (no (unknown) (unknown) Mother Lung cancer (units (unknown) date) unknown) (unknown) (no (unknown) (unknown) Mouth:?oral (units (un known) date) mucosae normal unknown) (unknown) (no (unknown) (unknown) Musculoskeletal (units (unknown) date) unknown) (unknown) (no (unknown) (unknown) Musculoskeletal: (units (unknown) date) Denies back pain, unknown) Denies muscle weakness, Reports neck pain, (unknown) (no (unknown) (unknown) NT proBNP elevated (units (unknown) date) to 50-80. Patient unknown) was given a dose of Lasix. Will also send (unknown) (no (unknown) (unknown) NT-Pro-B Natriuret (units (unknown) date) Pep (<450) pg/mL unknown) (unknown) (no (unknown) (unknown) NT-Pro-B Natriuret (units (unknown) date) Pep 5280 H (<450) unknown) pg/mL (unknown) (no (unknown) (unknown) Narrative (units (unkn own) date) unknown) (unknown) (no (unknown) (unknown) Neck (units (unkno wn) date) unknown) (unknown) (no (unknown) (unknown) Neck:?normal (units (u nknown) date) visual inspection unknown) and no lymphadenopathy noted (unknown) (no (unknown) (unknown) Neuro (units (unkno wn) date) unknown) (unknown) (no (unknown) (unknown) Neurologic (units (unk nown) date) unknown) (unknown) (no (unknown) (unknown) Neurologic: Denies (units (unknown) date) behavioral changes, unknown) Reports confusion, Denies dizziness, (unknown) (no (unknown) (unknown) Neut # (Auto) (units ( unknown) date) (4701-8929) /uL unknown) (unknown) (no (unknown) (unknown) Neut # (Auto) 6200 (units (unknown) date) (7353-7849) /uL unknown) (unknown) (no (unknown) (unknown) Neut % (Auto) (units ( unknown) date) (50-75) % unknown) (unknown) (no (unknown) (unknown) Neut % (Auto) 84.3 (units (unknown) date) H (50-75) % unknown) (unknown) (no (unknown) (unknown) New (units (unkno wn) date) unknown) (unknown) (no (unknown) (unknown) No Action (units (unkn own) date) unknown) (unknown) (no (unknown) (unknown) Nose:?external (units (unknown) date) nose normal unknown) (unknown) (no (unknown) (unknown) Ordered: (units (unkno wn) date) unknown) (unknown) (no (unknown) (unknown) Orders (units (unkno wn) date) unknown) (unknown) (no (unknown) (unknown) Oxygen Delivery (units (unknown) date) Method 08/20/22 unknown) 17:29 (unknown) (no (unknown) (unknown) Oxygen Delivery (units (unknown) date) Method Room Air unknown) Room Air (unknown) (no (unknown) (unknown) Oxygen Delivery (units (unknown) date) Method Room Air unknown) (unknown) (no (unknown) (unknown) PT (10.1-12.7) (units (unknown) date) SECONDS unknown) (unknown) (no (unknown) (unknown) PT 12.7 (units (unkno wn) date) (10.1-12.7) SECONDS unknown) (unknown) (no (unknown) (unknown) Partial (units (unkno wn) date) Thromboplastin Time unknown) Stat (unknown) (no (unknown) (unknown) Patient (units (unkno wn) date) Disposition: Home unknown) (unknown) (no (unknown) (unknown) Patient History (units (unknown) date) unknown) (unknown) (no (unknown) (unknown) Patient denies (units ( unknown) date) fever, chills, unknown) chest pain, shortness of breath, nausea, vomiting, (unknown) (no (unknown) (unknown) Patient is in AFib (units (unknown) date) in the ED, however unknown) is rate is controlled. 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 Duong as soon as possible. You (unknown) (no (unknown) (unknown) Please return to (units (unknown) date) the ED if you have unknown) worsening signs of alcohol withdrawal (unknown) (no (unknown) (unknown) Plt Count (units (unkn own) date) (150-400) X103/uL unknown) (unknown) (no (unknown) (unknown) Plt Count 107 L (units (unknown) date) (150-400) X103/uL unknown) (unknown) (no (unknown) (unknown) Potassium (units (unkn own) date) (3.4-5.1) mmol/L unknown) (unknown) (no (unknown) (unknown) Potassium 4.8 (units ( unknown) date) (3.4-5.1) mmol/L unknown) (unknown) (no (unknown) (unknown) Prescriptions: (units (unknown) date) unknown) (unknown) (no (unknown) (unknown) Previous Rx's (units ( unknown) date) unknown) (unknown) (no (unknown) (unknown) Prothrombin Time (units (unknown) date) INR Stat unknown) (unknown) (no (unknown) (unknown) Psychiatric (units (un known) date) unknown) (unknown) (no (unknown) (unknown) Psychiatric: (units (u nknown) date) Denies anxiety, unknown) Denies behavioral changes, Reports confusion, (unknown) (no (unknown) (unknown) Pt reports taking (units (unknown) date) every other day, at unknown) best. Also stated' only takes 2 pills, (unknown) (no (unknown) (unknown) Pulse Oximetry 93 (units (unknown) date) 08/20/22 17:29 unknown) (unknown) (no (unknown) (unknown) Pulse Oximetry 93 (units (unknown) date) 96 unknown) (unknown) (no (unknown) (unknown) Pulse Oximetry 97 (units (unknown) date) unknown) (unknown) (no (unknown) (unknown) Pulse Oximetry 98 (units (unknown) date) unknown) (unknown) (no (unknown) (unknown) Pulse Rate 88 (units ( unknown) date) unknown) (unknown) (no (unknown) (unknown) Pulse Rate 89 85 (units (unknown) date) unknown) (unknown) (no (unknown) (unknown) Pulse Rate 96 H (units (unknown) date) 08/20/22 17:29 unknown) (unknown) (no (unknown) (unknown) Pulse Rate 96 H 88 (units (unknown) date) unknown) (unknown) (no (unknown) (unknown) RBC (4.5-5.9) (units ( unknown) date) X106/uL unknown) (unknown) (no (unknown) (unknown) RBC 3.05 L (units (unk nown) date) (4.5-5.9) X106/uL unknown) (unknown) (no (unknown) (unknown) RDW (11.6-14.8) % (units (unknown) date) unknown) (unknown) (no (unknown) (unknown) RDW 13.7 (units (unkno wn) date) (11.6-14.8) % unknown) (unknown) (no (unknown) (unknown) ROS Unobtainable: (units (unknown) date) All systems unknown) reviewed + are unremarkable except as noted in HPI (unknown) (no (unknown) (unknown) Rate:?regular rate (units (unknown) date) unknown) (unknown) (no (unknown) (unknown) Referrals: (units (unk nown) date) unknown) (unknown) (no (unknown) (unknown) Related Data (units (u nknown) date) unknown) (unknown) (no (unknown) (unknown) Resp (units (unkno wn) date) unknown) (unknown) (no (unknown) (unknown) Respiratory Rate (units (unknown) date) 20 08/20/22 17:29 unknown) (unknown) (no (unknown) (unknown) Respiratory Rate (units (unknown) date) 20 21 unknown) (unknown) (no (unknown) (unknown) Respiratory Rate (units (unknown) date) 21 unknown) (unknown) (no (unknown) (unknown) Respiratory Rate (units (unknown) date) 24 21 unknown) (unknown) (no (unknown) (unknown) Respiratory (units (un known) date) unknown) (unknown) (no (unknown) (unknown) Respiratory: Denies (units (unknown) date) cough, Denies unknown) dyspnea, Denies dyspnea on exertion and Denies (unknown) (no (unknown) (unknown) Rest of the workup (units (unknown) date) was unremarkable. unknown) Patient was counseled on possibility of (unknown) (no (unknown) (unknown) Review of Systems (units (unknown) date) unknown) (unknown) (no (unknown) (unknown) Rhythm:?afib (units (u nknown) date) unknown) (unknown) (no (unknown) (unknown) Signed By: (units (unk nown) date) unknown) (unknown) (no (unknown) (unknown) Sister Rheumatoid (units (unknown) date) arthritis unknown) (unknown) (no (unknown) (unknown) Skin/Breast: (units (u nknown) date) Denies pruritus, unknown) Denies erythema, Denies rash and Denies wounds (unknown) (no (unknown) (unknown) Smoking Status: (units (unknown) date) Former smoker unknown) (unknown) (no (unknown) (unknown) Social History (units (unknown) date) (Reviewed 12/25/21 unknown) @ 16:19 by Pop Delgado PA-C) (unknown) (no (unknown) (unknown) Sodium (137-145) (units (unknown) date) mmol/L unknown) (unknown) (no (unknown) (unknown) Sodium 130 L (units (u nknown) date) (137-145) mmol/L unknown) (unknown) (no (unknown) (unknown) Sodium Chloride (units (unknown) date) (Normal Saline unknown) 0.9%) 1,000 mls @ 1,000 mls/hr IV BOLUS ONE (unknown) (no (unknown) (unknown) Source: patient (units (unknown) date) unknown) (unknown) (no (unknown) (unknown) Stand Alone Forms: (units (unknown) date) Patient Portal/API unknown) (unknown) (no (unknown) (unknown) Stated Complaint: (units (unknown) date) a-fib/passed out unknown) this morning (unknown) (no (unknown) (unknown) Stop: 08/20/22 (units (unknown) date) 17:37 unknown) (unknown) (no (unknown) (unknown) Stop: 08/20/22 (units (unknown) date) 18:21 unknown) (unknown) (no (unknown) (unknown) Stop: 08/20/22 (units (unknown) date) 19:20 unknown) (unknown) (no (unknown) (unknown) Stop: 08/20/22 (units (unknown) date) 19:56 unknown) (unknown) (no (unknown) (unknown) Substance Use (units ( unknown) date) Type: does not use unknown) (unknown) (no (unknown) (unknown) Surgical History (units (unknown) date) (Reviewed 12/25/21 unknown) @ 16:19 by Pop Delgado PA-C) (unknown) (no (unknown) (unknown) Temperature 98.6 F (units (unknown) date) 08/20/22 17:29 unknown) (unknown) (no (unknown) (unknown) Temperature 98.6 F (units (unknown) date) unknown) (unknown) (no (unknown) (unknown) Temperature (units (un known) date) unknown) (unknown) (no (unknown) (unknown) Tenderness to (units ( unknown) date) palpation of unknown) right-sided, posterolateral ribs (unknown) (no (unknown) (unknown) Throat:?posterior (units (unknown) date) oropharynx normal unknown) (unknown) (no (unknown) (unknown) Time Seen by (units (u nknown) date) Provider: 08/20/22 unknown) 17:36 (unknown) (no (unknown) (unknown) Total Bilirubin (units (unknown) date) (0.2-1.3) mg/dL unknown) (unknown) (no (unknown) (unknown) Total Bilirubin (units (unknown) date) 1.3 (0.2-1.3) mg/dL unknown) (unknown) (no (unknown) (unknown) Total Creatine (units (unknown) date) Kinase (55-170) U/L unknown) (unknown) (no (unknown) (unknown) Total Creatine (units (unknown) date) Kinase 144 (55-170) unknown) U/L (unknown) (no (unknown) (unknown) Total Protein (units ( unknown) date) (6.3-8.2) g/dL unknown) (unknown) (no (unknown) (unknown) Total Protein 6.6 (units (unknown) date) (6.3-8.2) g/dL unknown) (unknown) (no (unknown) (unknown) Troponin + CK (units ( unknown) date) Cardiac Panel Stat unknown) (unknown) (no (unknown) (unknown) Troponin I (units (unk nown) date) (0.01-0.034) ng/mL unknown) (unknown) (no (unknown) (unknown) Troponin I 0.013 (units (unknown) date) (0.01-0.034) ng/mL unknown) (unknown) (no (unknown) (unknown) Ur Culture (units (unk nown) date) Indicated? Cult not unknown) indicated (unknown) (no (unknown) (unknown) Ur Culture (units (unk nown) date) Indicated? unknown) (unknown) (no (unknown) (unknown) Urine Bacteria (units (unknown) date) (None) unknown) (unknown) (no (unknown) (unknown) Urine Bacteria (units (unknown) date) None seen (None) unknown) (unknown) (no (unknown) (unknown) Urine Dip (units (unkn own) date) unknown) (unknown) (no (unknown) (unknown) Urine Microscopic (units (unknown) date) Stat unknown) (unknown) (no (unknown) (unknown) Urine RBC (units (unkn own) date) (0-5/HPF) unknown) (unknown) (no (unknown) (unknown) Urine RBC None (units (unknown) date) seen (0-5/HPF) unknown) (unknown) (no (unknown) (unknown) Urine Specific (units (unknown) date) Henderson 1.010 unknown) (unknown) (no (unknown) (unknown) Urine WBC (units (unkn own) date) (0-5/HPF) unknown) (unknown) (no (unknown) (unknown) Urine WBC None (units (unknown) date) seen (0-5/HPF) unknown) (unknown) (no (unknown) (unknown) Vital Signs - 8 hr (units (unknown) date) unknown) (unknown) (no (unknown) (unknown) Vital Signs (units (un known) date) unknown) (unknown) (no (unknown) (unknown) Vital signs: (units (u nknown) date) unknown) (unknown) (no (unknown) (unknown) WBC (4.5-11.0) (units (unknown) date) X103/uL unknown) (unknown) (no (unknown) (unknown) WBC 7.4 (4.5-11.0) (units (unknown) date) X103/uL unknown) (unknown) (no (unknown) (unknown) Withdrawal (units (unk nown) date) unknown) (unknown) (no (unknown) (unknown) XR chest 1V Stat (units (unknown) date) unknown) (unknown) (no (unknown) (unknown) You were evaluated (units (unknown) date) in the ED today for unknown) palpitations. Your NT proBNP was (unknown) (no (unknown) (unknown) [Embedded Image (units (unknown) date) Not Available] unknown) (unknown) (no (unknown) (unknown) abdominal pain, (units (unknown) date) dysuria, unknown) lightheadedness, dizziness, syncope. Patient was (unknown) (no (unknown) (unknown) alcohol intake (units (unknown) date) frequency: 3 or unknown) more drinks per day (unknown) (no (unknown) (unknown) alcohol intake: (units (unknown) date) current unknown) (unknown) (no (unknown) (unknown) amoxicillin (units (un known) date) [AMOXICILLIN] unknown) Allergy Severe SWOLLEN JAW Verified 08/20/22 17:41 (unknown) (no (unknown) (unknown) an assist to get (units (unknown) date) patient into her unknown) car so she could bring him to the ED. (unknown) (no (unknown) (unknown) and Denies (units (unk nown) date) orthopnea unknown) (unknown) (no (unknown) (unknown) and Denies urinary (units (unknown) date) urgency unknown) (unknown) (no (unknown) (unknown) and below (units (unkn own) date) unknown) (unknown) (no (unknown) (unknown) appears well and (units (unknown) date) there is no unknown) indication to hospitalize him today. ED return (unknown) (no (unknown) (unknown) appointment today (units (unknown) date) and that she is not unknown) aware of him falling earlier this morning. (unknown) (no (unknown) (unknown) changes. CT chest (units (unknown) date) shows possible unknown) pneumonia, however there is no clinical (unknown) (no (unknown) (unknown) chooses to go home (units (unknown) date) hand will drink unknown) again if he is at risk of going into (unknown) (no (unknown) (unknown) clindamycin (units (un known) date) [CLINDAMYCIN] unknown) AdvReac Severe C-DIFF Verified 08/20/22 17:41 (unknown) (no (unknown) (unknown) consciousness. (units (unknown) date) Patient's unknown) states that he was unable to get up, she called (unknown) (no (unknown) (unknown) correlation with (units (unknown) date) patient's symptoms. unknown) Most likely atelectasis versus pneumonia. (unknown) (no (unknown) (unknown) couple of days (units (unknown) date) later he goes back unknown) to buying are liquor. Patient's states (unknown) (no (unknown) (unknown) dangerous and lead (units (unknown) date) to serious unknown) conditions including, and Please also return (unknown) (no (unknown) (unknown) days which is (units ( unknown) date) longer than normal unknown) for him. Patient endorses palpitations, (unknown) (no (unknown) (unknown) detox, dangers of (units (unknown) date) alcohol withdrawal. unknown) Patient verbalizes understanding and (unknown) (no (unknown) (unknown) diarrhea, Denies (units (unknown) date) nausea and Denies unknown) vomiting (unknown) (no (unknown) (unknown) dose of Lasix (units ( unknown) date) today in the ED for unknown) it. You were also being sent home with a (unknown) (no (unknown) (unknown) drinks hard (units (un known) date) liquor, when he unknown) runs out he resorts to wine or beer. However, a (unknown) (no (unknown) (unknown) elevated, which is (units (unknown) date) an indication of unknown) congestive heart failure. You were given a (unknown) (no (unknown) (unknown) falls, Reports (units (unknown) date) lethargy, Reports unknown) poor appetite and Reports weakness (unknown) (no (unknown) (unknown) feeling uneasy. (units (unknown) date) Patient is unknown) accompanied by his . Patient also appears (unknown) (no (unknown) (unknown) for alcohol (units (un known) date) withdrawal versus unknown) alcohol intoxication versus UTI versus pneumonia (unknown) (no (unknown) (unknown) fracture/dislocati (units (unknown) date) on versus unknown) intracranial hemorrhage versus other. Will obtain (unknown) (no (unknown) (unknown) furosemide 20 mg (units (unknown) date) tablet 10 mg PO QAM unknown) #45 tabs 12/15/21 (unknown) (no (unknown) (unknown) furosemide 20 mg (units (unknown) date) tablet unknown) (unknown) (no (unknown) (unknown) furosemide 40 mg (units (unknown) date) tablet (Lasix) 40 unknown) mg PO QAM #30 tabs 08/20/22 (unknown) (no (unknown) (unknown) furosemide [Lasix] (units (unknown) date) 40 mg tablet unknown) (unknown) (no (unknown) (unknown) had any seizures (units (unknown) date) in the last day or unknown) 2. 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 (units (unknown) date) Patient had mild unknown) alcohol withdrawal with a CIWA score of 9 (unknown) (no (unknown) (unknown) his withdrawal (units (unknown) date) symptoms greatly unknown) improved. Patient states that he does not feel (unknown) (no (unknown) (unknown) household members: (units (unknown) date) none unknown) (unknown) (no (unknown) (unknown) including tremors, (units (unknown) date) seizures, anxiety, unknown) agitation. Alcohol withdrawal can be (unknown) (no (unknown) (unknown) inital exam (units (un known) date) unknown) (unknown) (no (unknown) (unknown) into the ED. (units (u nkwn) date) Patient was walking unknown) down the stairs, slipped on the last stair, (unknown) (no (unknown) (unknown) labs, UA, EKG, (units (unknown) date) chest x-ray, unknown) troponin, ETOH, CT head, CT C-spine, CT chest. (unknown) (no (unknown) (unknown) lightheadedness, (units (unknown) date) Denies unknown) palpitations, Denies dyspnea, Denies dyspnea on exertion (unknown) (no (unknown) (unknown) like he is in AFib (units (unknown) date) anymore. EKG showed unknown) AFib without RVR and no acute ST-T (unknown) (no (unknown) (unknown) marital status: (units (unknown) date) unknown) (unknown) (no (unknown) (unknown) metoprolol (units (unk nown) date) succinate 25 mg 25 unknown) mg PO DAILY #30 tabs 10/30/21 (unknown) (no (unknown) (unknown) metoprolol (units (unk nown) date) succinate 25 mg unknown) tablet extended release 24 hr (unknown) (no (unknown) (unknown) morning. Patient's (units (unknown) date) who was unknown) present, clarified that there was no doctor's (unknown) (no (unknown) (unknown) neck pain, Denies (units (unknown) date) sore throat and unknown) Denies throat swelling (unknown) (no (unknown) (unknown) not taking the (units (unknown) date) Eliquis. It is unknown) unclear if patient is compliant with metoprolol (unknown) (no (unknown) (unknown) numbness, Denies (units (unknown) date) tingling and unknown) Reports weakness (unknown) (no (unknown) (unknown) occupational (units (u nknown) date) status: previously unknown) employed (unknown) (no (unknown) (unknown) on presentation to (units (unknown) date) the ED. Patient was unknown) given a dose of Ativan, following which (unknown) (no (unknown) (unknown) or furosemide. (units (unknown) date) unknown) (unknown) (no (unknown) (unknown) oriented to the (units (unknown) date) day of the week. unknown) Patient's states that he has been having (unknown) (no (unknown) (unknown) patient home with (units (unknown) date) a prescription for unknown) Lasix until he is able to see Dr. Duong, (unknown) (no (unknown) (unknown) patient's (units (unknown) date) states that his unknown) last drink was last night, however patient (unknown) (no (unknown) (unknown) precautions were (units (unknown) date) discussed with unknown) patient and patient's . They verbalized (unknown) (no (unknown) (unknown) prescription for (units (unknown) date) Lasix to take daily unknown) until you are able to see Dr. Duong. (unknown) (no (unknown) (unknown) recalls that his (units (unknown) date) last drink was last unknown) Friday. Patient does not appear (unknown) (no (unknown) (unknown) recommended to take (units (unknown) date) Eliquis for the unknown) AFib, however feet confirms today that he is (unknown) (no (unknown) (unknown) short-term memory (units (unknown) date) issues for the last unknown) several years. It is unclear if patient (unknown) (no (unknown) (unknown) since he was (units (u nknown) date) feeling weak. unknown) Unsure if he hit his head. There was no loss of (unknown) (no (unknown) (unknown) since it RX'd'. (units (unknown) date) unknown) (unknown) (no (unknown) (unknown) somewhat confused, (units (unknown) date) stated that he fell unknown) when he went to see the doctor this (unknown) (no (unknown) (unknown) states that he (units (unknown) date) experiences AFib on unknown) and off, however it has been prolonged for 2 (unknown) (no (unknown) (unknown) substance use (units ( unknown) date) type: does not use unknown) (unknown) (no (unknown) (unknown) suicidal ideation (units (unknown) date) unknown) (unknown) (no (unknown) (unknown) tablet,extended (units (unknown) date) release 24 hr unknown) (unknown) (no (unknown) (unknown) that his mental (units (unknown) date) state is much clear unknown) when he is not drinking hard liquor. (unknown) (no (unknown) (unknown) to the ED if you (units (unknown) date) experience any unknown) chest pain or shortness of breath. (unknown) (no (unknown) (unknown) understanding. (units (unknown) date) unknown) (unknown) (no (unknown) (unknown) versus ACS versus (units (unknown) date) CHF exacerbation unknown) versus dehydration versus dementia versus (unknown) (no (unknown) (unknown) were also in mild (units (unknown) date) alcohol withdrawal unknown) for which you were given a dose of Ativan. (unknown) (no (unknown) (unknown) wheezing (units (unkno wn) date) unknown) (unknown) (no (unknown) (unknown) withdrawal (units (unk nown) date) presents to the ED unknown) with 2 days of palpitations from AFib. Concern (unknown) (no (unknown) (unknown) withdrawal (units (unk nown) date) presents to the ED unknown) with 2 days of palpitations from AFib. Patient (unknown) (no (unknown) (unknown) withdrawal. (units (un known) date) Patient agrees to unknown) take the Lasix and metoprolol daily. Patient Result panel [id number] (unknown) (no (unknown) (unknown) (no value) (units (unk nown) date) unknown) (unknown) (no (unknown) (unknown) <Electronically (units (unknown) date) signed by Lizandro arzola) Leisa Sascha> (unknown) (no (unknown) (unknown) <Electronically (units (unknown) date) signed by Eleazar unknown) Richard BarrettO.> (unknown) (no (unknown) (unknown) <Electronically (units (unknown) date) signed by Eleazar unknown) Nena RamosO.> (unknown) (no (unknown) (unknown) <Lizandro Ciacedo PA-C (units (unknown) date) - Last Filed: unknown) 08/20/22 20:24> (unknown) (no (unknown) (unknown) <Eleazar Ramos, (units (unknown) date) DO - Last Filed: unknown) 08/20/22 22:12> (unknown) (no (unknown) (unknown) <cosigner> (units (unk nown) date) unknown) (unknown) (no (unknown) (unknown) 08/20/22 08/20/22 (units (unknown) date) 08/20/22 unknown) Range/Units (unknown) (no (unknown) (unknown) 08/20/22 17:35 (units (unknown) date) unknown) (unknown) (no (unknown) (unknown) 08/20/22 17:36 (units (unknown) date) unknown) (unknown) (no (unknown) (unknown) 08/20/22 17:49 (units (unknown) date) unknown) (unknown) (no (unknown) (unknown) 08/20/22 18:36 (units (unknown) date) unknown) (unknown) (no (unknown) (unknown) 08/20/22 18:42 (units (unknown) date) unknown) (unknown) (no (unknown) (unknown) 08/20/22 18:43 (units (unknown) date) unknown) (unknown) (no (unknown) (unknown) 08/20/222024 (units ( unknown) date) unknown) (unknown) (no (unknown) (unknown) 08/20/222211 (units ( unknown) date) unknown) (unknown) (no (unknown) (unknown) 08/20/22 (units (unkno wn) date) unknown) (unknown) (no (unknown) (unknown) [id number] (units (unkno wn) date) unknown) (unknown) (no (unknown) (unknown) 10 mg PO QAM Qty: (units (unknown) date) 45 1RF unknown) (unknown) (no (unknown) (unknown) 17:29 08/20/22 (units (unknown) date) unknown) (unknown) (no (unknown) (unknown) 17:32 08/20/22 (units (unknown) date) unknown) (unknown) (no (unknown) (unknown) 17:35 17:35 17:35 (units (unknown) date) unknown) (unknown) (no (unknown) (unknown) 17:35 17:35 18:36 (units (unknown) date) unknown) (unknown) (no (unknown) (unknown) 17:55 08/20/22 (units (unknown) date) unknown) (unknown) (no (unknown) (unknown) 17:55 (units (unkno wn) date) unknown) (unknown) (no (unknown) (unknown) 18:00 08/20/22 (units (unknown) date) unknown) (unknown) (no (unknown) (unknown) 18:00 (units (unkno wn) date) unknown) (unknown) (no (unknown) (unknown) 18:30 08/20/22 (units (unknown) date) unknown) (unknown) (no (unknown) (unknown) 19:00 08/20/22 (units (unknown) date) unknown) (unknown) (no (unknown) (unknown) 19:30 (units (unkno wn) date) unknown) (unknown) (no (unknown) (unknown) 20:00 08/20/22 (units (unknown) date) unknown) (unknown) (no (unknown) (unknown) 20:36 (units (unkno wn) date) unknown) (unknown) (no (unknown) (unknown) 25 mg PO DAILY (units (unknown) date) Qty: 30 0RF unknown) (unknown) (no (unknown) (unknown) 40 mg PO QAM Qty: (units (unknown) date) 30 0RF unknown) (unknown) (no (unknown) (unknown) 76-year-old male (units (unknown) date) with past medical unknown) history AFib, alcohol use disorder, alcohol (unknown) (no (unknown) (unknown) ALT (<50) IU/L (units (unknown) date) unknown) (unknown) (no (unknown) (unknown) ALT 40 (<50) IU/L (units (unknown) date) unknown) (unknown) (no (unknown) (unknown) APTT (26-36) (units (u nknown) date) SECONDS unknown) (unknown) (no (unknown) (unknown) APTT 27 (26-36) (units (unknown) date) SECONDS unknown) (unknown) (no (unknown) (unknown) AST (17-59) IU/L (units (unknown) date) unknown) (unknown) (no (unknown) (unknown) AST 57 (17-59) (units (unknown) date) IU/L unknown) (unknown) (no (unknown) (unknown) Activity (units (unkno wn) date) Restrictions/Additi unknown) onal Instructions: (unknown) (no (unknown) (unknown) Admin: 08/20/22 (units (unknown) date) 18:33 Dose: 1,000 unknown) mls/hr (unknown) (no (unknown) (unknown) Age/Sex: 76 / M (units (unknown) date) unknown) (unknown) (no (unknown) (unknown) Albumin (3.5-5.0) (units (unknown) date) g/dL unknown) (unknown) (no (unknown) (unknown) Albumin 4.1 (units (un known) date) (3.5-5.0) g/dL unknown) (unknown) (no (unknown) (unknown) Albumin/Globulin (units (unknown) date) Ratio (1.0-2.8) unknown) (unknown) (no (unknown) (unknown) Albumin/Globulin (units (unknown) date) Ratio 1.6 (1.0-2.8) unknown) (unknown) (no (unknown) (unknown) Alcohol abuse (units ( unknown) date) unknown) (unknown) (no (unknown) (unknown) Alcohol type: (units ( unknown) date) beer, wine and hard unknown) liquor (unknown) (no (unknown) (unknown) Alcohol withdrawal (units (unknown) date) delirium unknown) (unknown) (no (unknown) (unknown) Alcohol withdrawal (units (unknown) date) unknown) (unknown) (no (unknown) (unknown) Alkaline (units (unkno wn) date) Phosphatase unknown) (38-126) U/L (unknown) (no (unknown) (unknown) Alkaline (units (unkno wn) date) Phosphatase 67 unknown) (38-126) U/L (unknown) (no (unknown) (unknown) Allergic/Immunolog (units (unknown) date) ic unknown) (unknown) (no (unknown) (unknown) Allergic/Immunolog (units (unknown) date) ic: Denies unknown) urticaria, Denies throat swelling and Denies (unknown) (no (unknown) (unknown) Allergies (units (unkn own) date) unknown) (unknown) (no (unknown) (unknown) Allergy/AdvReac (units (unknown) date) Type Severity unknown) Reaction Status Date / Time (unknown) (no (unknown) (unknown) Anemia, chronic (units (unknown) date) disease unknown) (unknown) (no (unknown) (unknown) Aspirin (Aspirin (units (unknown) date) 81 Mg Chew Tab) 324 unknown) mg PO NOW ONE (unknown) (no (unknown) (unknown) Atrial (units (unkno wn) date) fibrillation unknown) (unknown) (no (unknown) (unknown) Atrial (units (unkno wn) date) fibrillation, CHF unknown) exacerbation, Alcohol withdrawal (unknown) (no (unknown) (unknown) Auscultation:?leigh (units (unknown) date) r to auscultation unknown) bilaterally (unknown) (no (unknown) (unknown) BNP [NT-proBNP (units (unknown) date) (BNP-Adult 18+)] unknown) Stat (unknown) (no (unknown) (unknown) BPH w urinary (units ( unknown) date) obs/LUTS unknown) (unknown) (no (unknown) (unknown) BUN (9-20) mg/dL (units (unknown) date) unknown) (unknown) (no (unknown) (unknown) BUN 16 (9-20) (units ( unknown) date) mg/dL unknown) (unknown) (no (unknown) (unknown) BUN/Creatinine (units (unknown) date) Ratio (6-22) unknown) (unknown) (no (unknown) (unknown) BUN/Creatinine (units (unknown) date) Ratio 15.2 (6-22) unknown) (unknown) (no (unknown) (unknown) Baso # (Auto) (units ( unknown) date) (0-100) /uL unknown) (unknown) (no (unknown) (unknown) Baso # (Auto) 0 (units (unknown) date) (0-100) /uL unknown) (unknown) (no (unknown) (unknown) Baso % (Auto) (units ( unknown) date) (0-2) % unknown) (unknown) (no (unknown) (unknown) Baso % (Auto) 0.4 (units (unknown) date) (0-2) % unknown) (unknown) (no (unknown) (unknown) Bedside Urine (units ( unknown) date) Bilirubin - unknown) Negative (unknown) (no (unknown) (unknown) Bedside Urine (units ( unknown) date) Glucose Negative unknown) (unknown) (no (unknown) (unknown) Bedside Urine (units ( unknown) date) Ketone - Negative unknown) (unknown) (no (unknown) (unknown) Bedside Urine (units ( unknown) date) Leukocytes - unknown) Negative (unknown) (no (unknown) (unknown) Bedside Urine (units ( unknown) date) Nitrite - Negative unknown) (unknown) (no (unknown) (unknown) Bedside Urine (units ( unknown) date) Occult Blood +/ unknown) (unknown) (no (unknown) (unknown) Bedside Urine (units ( unknown) date) Protein - Negative unknown) (unknown) (no (unknown) (unknown) Bedside Urine (units ( unknown) date) Urobilinogen - unknown) Negative (unknown) (no (unknown) (unknown) Bedside Urine pH (units (unknown) date) 6.5 unknown) (unknown) (no (unknown) (unknown) Blood Pressure (units (unknown) date) 110/79 126/82 unknown) (unknown) (no (unknown) (unknown) Blood Pressure (units (unknown) date) 114/70 08/20/22 unknown) 17:29 (unknown) (no (unknown) (unknown) Blood Pressure (units (unknown) date) 114/70 114/70 unknown) (unknown) (no (unknown) (unknown) Blood Pressure (units (unknown) date) 124/70 unknown) (unknown) (no (unknown) (unknown) Blood Pressure (units (unknown) date) unknown) (unknown) (no (unknown) (unknown) CK-MB (CK-2) (units (u nknown) date) (<2.37) ng/mL unknown) (unknown) (no (unknown) (unknown) CK-MB (CK-2) 2.54 (units (unknown) date) H (<2.37) ng/mL unknown) (unknown) (no (unknown) (unknown) CK-MB (CK-2) Rel (units (unknown) date) Index (1.5-5.0) % unknown) (unknown) (no (unknown) (unknown) CK-MB (CK-2) Rel (units (unknown) date) Index 1.8 (1.5-5.0) unknown) % (unknown) (no (unknown) (unknown) CT cervical spine (units (unknown) date) wo con Stat unknown) (unknown) (no (unknown) (unknown) CT chest wo con (units (unknown) date) Stat unknown) (unknown) (no (unknown) (unknown) CT head/brain wo (units (unknown) date) con Stat unknown) (unknown) (no (unknown) (unknown) Calcium (8.4-10.2) (units (unknown) date) mg/dL unknown) (unknown) (no (unknown) (unknown) Calcium 8.7 (units (un known) date) (8.4-10.2) mg/dL unknown) (unknown) (no (unknown) (unknown) Carbon Dioxide (units (unknown) date) (22-32) mmol/L unknown) (unknown) (no (unknown) (unknown) Carbon Dioxide 24 (units (unknown) date) (22-32) mmol/L unknown) (unknown) (no (unknown) (unknown) Cardio (units (unkno wn) date) unknown) (unknown) (no (unknown) (unknown) Cardiomyopathy (units (unknown) date) unknown) (unknown) (no (unknown) (unknown) Cardiovascular (units (unknown) date) unknown) (unknown) (no (unknown) (unknown) Cardiovascular: (units (unknown) date) Denies chest pain, unknown) Reports irregular heart rhythm, Denies (unknown) (no (unknown) (unknown) Chief Complaint: (units (unknown) date) Arrhythmia/Palpitat unknown) ions (unknown) (no (unknown) (unknown) Chloride (98-107) (units (unknown) date) mmol/L unknown) (unknown) (no (unknown) (unknown) Chloride 97 L (units ( unknown) date) (98-107) mmol/L unknown) (unknown) (no (unknown) (unknown) Clinical (units (o wn) date) Impression: unknown) (unknown) (no (unknown) (unknown) Complete Blood (units (unknown) date) Count AUTO DIFF unknown) Stat (unknown) (no (unknown) (unknown) Comprehensive (units ( unknown) date) Metabolic Panel unknown) Stat (unknown) (no (unknown) (unknown) Const (units (o wn) date) unknown) (unknown) (no (unknown) (unknown) Constitutional (units (unknown) date) unknown) (unknown) (no (unknown) (unknown) Constitutional: (units (unknown) date) Denies chills, unknown) Denies fatigue, Denies fever(s), Denies frequent (unknown) (no (unknown) (unknown) Cosign (units (o wn) date) unknown) (unknown) (no (unknown) (unknown) Course (units ( wn) date) unknown) (unknown) (no (unknown) (unknown) Creatinine (units (unk ) date) (0.66-1.25) mg/dL unknown) (unknown) (no (unknown) (unknown) Creatinine 1.05 (units (unknown) date) (0.66-1.25) mg/dL unknown) (unknown) (no (unknown) (unknown) : 1945 (units (unknown) date) Acct:[id number] unknown) (unknown) (no (unknown) (unknown) Date of Service: (units (unknown) date) 08/20/22 unknown) (unknown) (no (unknown) (unknown) Denies depression, (units (unknown) date) Reports memory unknown) loss, Denies homicidal ideation and Denies (unknown) (no (unknown) (unknown) Denies frequent (units (unknown) date) falls, Denies loss unknown) of vision, Reports memory loss, Denies (unknown) (no (unknown) (unknown) Denies loss of (units (unknown) date) vision unknown) (unknown) (no (unknown) (unknown) Denies numbness (units (unknown) date) and Denies tingling unknown) (unknown) (no (unknown) (unknown) Departure (units (unkn own) date) unknown) (unknown) (no (unknown) (unknown) Discharge Plan (units (unknown) date) unknown) (unknown) (no (unknown) (unknown) Discontinued (units (u nknown) date) Medications unknown) (unknown) (no (unknown) (unknown) Documented By: SACHIN (units (unknown) date) unknown) (unknown) (no (unknown) (unknown) Documented By: MLM (units (unknown) date) unknown) (unknown) (no (unknown) (unknown) Dr Ramos Co-Sign (units (unknown) date) Statement: I was unknown) available for consultation during this (unknown) (no (unknown) (unknown) ED Attending (units (u nknown) date) Cosignature unknown) Attestation: (unknown) (no (unknown) (unknown) ED Orders (units (unkn own) date) unknown) (unknown) (no (unknown) (unknown) EKG-12 Lead Stat (units (unknown) date) unknown) (unknown) (no (unknown) (unknown) ENT (units (unkno wn) date) unknown) (unknown) (no (unknown) (unknown) ER Physician: (units ( unknown) date) Sascha,Hyma P.A-C unknown) (unknown) (no (unknown) (unknown) Ears, Nose, Mouth, (units (unknown) date) and Throat: Denies unknown) change in voice, Denies dizziness, Reports (unknown) (no (unknown) (unknown) Ears:?hearing (units ( unknown) date) grossly normal unknown) bilaterally (unknown) (no (unknown) (unknown) Effort + (units (unkno wn) date) Inspection:?normal unknown) respiratory effort (unknown) (no (unknown) (unknown) Emergency Report (units (unknown) date) unknown) (unknown) (no (unknown) (unknown) Endocrine (units (unkn own) date) unknown) (unknown) (no (unknown) (unknown) Endocrine: Denies (units (unknown) date) fatigue, Denies unknown) flushing and Denies palpitations (unknown) (no (unknown) (unknown) Eos # (Auto) (units (u nknown) date) (0-450) /uL unknown) (unknown) (no (unknown) (unknown) Eos # (Auto) 0 (units (unknown) date) (0-450) /uL unknown) (unknown) (no (unknown) (unknown) Eos % (Auto) (2-4) (units (unknown) date) % unknown) (unknown) (no (unknown) (unknown) Eos % (Auto) 0.1 L (units (unknown) date) (2-4) % unknown) (unknown) (no (unknown) (unknown) Esterase (units (unkno wn) date) unknown) (unknown) (no (unknown) (unknown) Estimated GFR > 60 (units (unknown) date) (>60) mL/min unknown) (unknown) (no (unknown) (unknown) Estimated GFR (units ( unknown) date) (>60) mL/min unknown) (unknown) (no (unknown) (unknown) Ethanol (ETOH) (units (unknown) date) Stat unknown) (unknown) (no (unknown) (unknown) Ethyl Alcohol < 10 (units (unknown) date) ( - 10) mg/dL unknown) (unknown) (no (unknown) (unknown) Ethyl Alcohol ( - (units (unknown) date) 10) mg/dL unknown) (unknown) (no (unknown) (unknown) Exam Narrative: (units (unknown) date) unknown) (unknown) (no (unknown) (unknown) Exam (units (unkno wn) date) unknown) (unknown) (no (unknown) (unknown) Eyes (units (unkno wn) date) unknown) (unknown) (no (unknown) (unknown) Eyes: Denies (units (u nknown) date) change in vision, unknown) Denies eye discharge, Denies irritation and (unknown) (no (unknown) (unknown) Face and (units (unkno wn) date) sinus:?normal unknown) facial exam and sinuses nontender (unknown) (no (unknown) (unknown) Family History (units (unknown) date) (Reviewed 12/25/21 unknown) @ 16:19 by Pop Delgado PA-C) (unknown) (no (unknown) (unknown) Former smoker (units ( unknown) date) unknown) (unknown) (no (unknown) (unknown) Furosemide (units (unk nown) date) (Furosemide 40 Mg/4 unknown) Ml Vial) 40 mg IV NOW ONE (unknown) (no (unknown) (unknown) Jeannette Chaudhary, (units (unknown) date) MD [Primary Care unknown) Provider] (unknown) (no (unknown) (unknown) Gastrointestinal (units (unknown) date) unknown) (unknown) (no (unknown) (unknown) Gastrointestinal: (units (unknown) date) Denies abdominal unknown) pain, Denies change in bowel habits, Denies (unknown) (no (unknown) (unknown) General (units (unkno wn) date) unknown) (unknown) (no (unknown) (unknown) General:?appearanc (units (unknown) date) e normal, both eyes unknown) and all related structures (unknown) (no (unknown) (unknown) General:?cooperati (units (unknown) date) ve, healthy unknown) appearing and comfortable (unknown) (no (unknown) (unknown) General:?patient (units (unknown) date) alert, patient unknown) awake and patient oriented x3; CIWA score 9 on (unknown) (no (unknown) (unknown) Genitourinary (units ( unknown) date) unknown) (unknown) (no (unknown) (unknown) Genitourinary: (units (unknown) date) Denies hematuria, unknown) Denies flank pain, Denies urinary incontinence (unknown) (no (unknown) (unknown) Globulin (1.7-4.1) (units (unknown) date) g/dL unknown) (unknown) (no (unknown) (unknown) Globulin 2.5 (units (u nknown) date) (1.7-4.1) g/dL unknown) (unknown) (no (unknown) (unknown) Glucose (80-110) (units (unknown) date) mg/dL unknown) (unknown) (no (unknown) (unknown) Glucose 100 (units (un known) date) (80-110) mg/dL unknown) (unknown) (no (unknown) (unknown) Gout (units (unkno wn) date) unknown) (unknown) (no (unknown) (unknown) HENMT (units (unkno wn) date) unknown) (unknown) (no (unknown) (unknown) HPI - (units (unkno wn) date) Arrhythmia/Palpitat unknown) ions (unknown) (no (unknown) (unknown) HPI narrative: (units (unknown) date) unknown) (unknown) (no (unknown) (unknown) HTN (hypertension) (units (unknown) date) unknown) (unknown) (no (unknown) (unknown) Hct (41-53) % (units ( unknown) date) unknown) (unknown) (no (unknown) (unknown) Hct 31.4 L (41-53) (units (unknown) date) % unknown) (unknown) (no (unknown) (unknown) Head:?normal to (units (unknown) date) inspection unknown) (unknown) (no (unknown) (unknown) Hematologic/Lympha (units (unknown) date) tic unknown) (unknown) (no (unknown) (unknown) Hematologic/Lympha (units (unknown) date) tic: Denies easy unknown) bruising (unknown) (no (unknown) (unknown) Hgb (13.5-17.5) (units (unknown) date) g/dL unknown) (unknown) (no (unknown) (unknown) Hgb 11.0 L (units (unk nown) date) (13.5-17.5) g/dL unknown) (unknown) (no (unknown) (unknown) History of Present (units (unknown) date) Illness unknown) (unknown) (no (unknown) (unknown) 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 (unknown) (no (unknown) (unknown) History of (units (unk nown) date) percutaneous unknown) endoscopic gastrostomy (-2019) (unknown) (no (unknown) (unknown) INR (0.9-1.3) (units ( unknown) date) unknown) (unknown) (no (unknown) (unknown) INR 1.1 (0.9-1.3) (units (unknown) date) unknown) (unknown) (no (unknown) (unknown) Initial Vital (units ( unknown) date) Signs unknown) (unknown) (no (unknown) (unknown) Initial Vital (units ( unknown) date) Signs: unknown) (unknown) (no (unknown) (unknown) Instructions: DI (units (unknown) date) for Heart Failure, unknown) DI for Atrial Fibrillation, Alcohol (unknown) (no (unknown) (unknown) Integumentary/[place] (units (unknown) date) sts unknown) (unknown) (no (unknown) (unknown) [facility] (units (unknown) date) [address] unknown) [place] [address] (unknown) (no (unknown) (unknown) Lab Data (units (unkno wn) date) unknown) (unknown) (no (unknown) (unknown) Lab Results (units (un known) date) unknown) (unknown) (no (unknown) (unknown) Label Comments: (units (unknown) date) unknown) (unknown) (no (unknown) (unknown) Labs: (units (unkno wn) date) unknown) (unknown) (no (unknown) (unknown) Last Admin: (units (un known) date) 08/20/22 18:16 unknown) Dose: 324 mg (unknown) (no (unknown) (unknown) Last Admin: (units (un known) date) 08/20/22 18:32 unknown) Dose: 1 mg (unknown) (no (unknown) (unknown) Last Admin: (units (un known) date) 08/20/22 20:11 unknown) Dose: 40 mg (unknown) (no (unknown) (unknown) Last Infusion: (units (unknown) date) 08/20/22 20:14 unknown) Dose: 0 mls/hr (unknown) (no (unknown) (unknown) Lipase (23-300) (units (unknown) date) U/L unknown) (unknown) (no (unknown) (unknown) Lipase 127 (units (unk nown) date) (23-300) U/L unknown) (unknown) (no (unknown) (unknown) Lipase Stat (units (un known) date) unknown) (unknown) (no (unknown) (unknown) Lorazepam (units (unkn own) date) (Lorazepam 2 Mg/Ml unknown) Inj) 1 mg IV NOW ONE (unknown) (no (unknown) (unknown) Lymph # (Auto) (units (unknown) date) (5281-4505) /uL unknown) (unknown) (no (unknown) (unknown) Lymph # (Auto) 500 (units (unknown) date) L (9190-8626) /uL unknown) (unknown) (no (unknown) (unknown) Lymph % (Auto) (units (unknown) date) (25-40) % unknown) (unknown) (no (unknown) (unknown) Lymph % (Auto) 7.1 (units (unknown) date) L (25-40) % unknown) (unknown) (no (unknown) (unknown) MCH (26-34) PG (units (unknown) date) unknown) (unknown) (no (unknown) (unknown) MCH 36.0 H (26-34) (units (unknown) date) PG unknown) (unknown) (no (unknown) (unknown) MCHC (30-36) % (units (unknown) date) unknown) (unknown) (no (unknown) (unknown) MCHC 34.9 (30-36) (units (unknown) date) % unknown) (unknown) (no (unknown) (unknown) MCV (80-100) fL (units (unknown) date) unknown) (unknown) (no (unknown) (unknown) MCV 103.2 H (units (un known) date) (80-100) fL unknown) (unknown) (no (unknown) (unknown) MDM - (units (unkno wn) date) Arrhythmia/Palpitat unknown) ions (unknown) (no (unknown) (unknown) MDM Narrative (units ( unknown) date) unknown) (unknown) (no (unknown) (unknown) Magnesium (units (unkn own) date) (1.6-2.3) mg/dL unknown) (unknown) (no (unknown) (unknown) Magnesium 1.2 L (units (unknown) date) (1.6-2.3) mg/dL unknown) (unknown) (no (unknown) (unknown) Magnesium Stat (units (unknown) date) unknown) (unknown) (no (unknown) (unknown) Medical History (units (unknown) date) (Reviewed 12/25/21 unknown) @ 16:19 by Pop Delgado PA-C) (unknown) (no (unknown) (unknown) Medical decision (units (unknown) date) making narrative: unknown) (unknown) (no (unknown) (unknown) Medical records (units (unknown) date) reviewed: Yes unknown) (unknown) (no (unknown) (unknown) Medication (units (unk nown) date) Instructions unknown) Recorded (unknown) (no (unknown) (unknown) Mixed (units (unkno wn) date) hyperlipidemia unknown) (unknown) (no (unknown) (unknown) Mode of arrival: (units (unknown) date) Wheelchair unknown) (unknown) (no (unknown) (unknown) [place] # (Auto) (units ( unknown) date) (0-900) /uL unknown) (unknown) (no (unknown) (unknown) [place] # (Auto) 600 (units (unknown) date) (0-900) /uL unknown) (unknown) (no (unknown) (unknown) [place] % (Auto) (units ( unknown) date) (3-14) % unknown) (unknown) (no (unknown) (unknown) [place] % (Auto) 8.1 (units (unknown) date) (3-14) % unknown) (unknown) (no (unknown) (unknown) Mother Lung cancer (units (unknown) date) unknown) (unknown) (no (unknown) (unknown) Mouth:?oral (units (un known) date) mucosae normal unknown) (unknown) (no (unknown) (unknown) Musculoskeletal (units (unknown) date) unknown) (unknown) (no (unknown) (unknown) Musculoskeletal: (units (unknown) date) Denies back pain, unknown) Denies muscle weakness, Reports neck pain, (unknown) (no (unknown) (unknown) NT proBNP elevated (units (unknown) date) to 50-80. Patient unknown) was given a dose of Lasix. Will also send (unknown) (no (unknown) (unknown) NT-Pro-B Natriuret (units (unknown) date) Pep (<450) pg/mL unknown) (unknown) (no (unknown) (unknown) NT-Pro-B Natriuret (units (unknown) date) Pep 5280 H (<450) unknown) pg/mL (unknown) (no (unknown) (unknown) Narrative (units (unkn own) date) unknown) (unknown) (no (unknown) (unknown) Neck (units (unkno wn) date) unknown) (unknown) (no (unknown) (unknown) Neck:?normal (units (u nknown) date) visual inspection unknown) and no lymphadenopathy noted (unknown) (no (unknown) (unknown) Neuro (units (unkno wn) date) unknown) (unknown) (no (unknown) (unknown) Neurologic (units (unk nown) date) unknown) (unknown) (no (unknown) (unknown) Neurologic: Denies (units (unknown) date) behavioral changes, unknown) Reports confusion, Denies dizziness, (unknown) (no (unknown) (unknown) Neut # (Auto) (units ( unknown) date) (7982-2166) /uL unknown) (unknown) (no (unknown) (unknown) Neut # (Auto) 6200 (units (unknown) date) (1453-3180) /uL unknown) (unknown) (no (unknown) (unknown) Neut % (Auto) (units ( unknown) date) (50-75) % unknown) (unknown) (no (unknown) (unknown) Neut % (Auto) 84.3 (units (unknown) date) H (50-75) % unknown) (unknown) (no (unknown) (unknown) New (units (unkno wn) date) unknown) (unknown) (no (unknown) (unknown) No Action (units (unkn own) date) unknown) (unknown) (no (unknown) (unknown) Nose:?external (units (unknown) date) nose normal unknown) (unknown) (no (unknown) (unknown) Ordered: (units (unkno wn) date) unknown) (unknown) (no (unknown) (unknown) Orders (units (unkno wn) date) unknown) (unknown) (no (unknown) (unknown) Oxygen Delivery (units (unknown) date) Method 08/20/22 unknown) 17:29 (unknown) (no (unknown) (unknown) Oxygen Delivery (units (unknown) date) Method Room Air unknown) Room Air (unknown) (no (unknown) (unknown) Oxygen Delivery (units (unknown) date) Method Room Air unknown) (unknown) (no (unknown) (unknown) Oxygen Delivery (units (unknown) date) Method unknown) (unknown) (no (unknown) (unknown) PT (10.1-12.7) (units (unknown) date) SECONDS unknown) (unknown) (no (unknown) (unknown) PT 12.7 (units (unkno wn) date) (10.1-12.7) SECONDS unknown) (unknown) (no (unknown) (unknown) Partial (units (unkno wn) date) Thromboplastin Time unknown) Stat (unknown) (no (unknown) (unknown) Patient (units (unkno wn) date) Disposition: Home unknown) (unknown) (no (unknown) (unknown) Patient History (units (unknown) date) unknown) (unknown) (no (unknown) (unknown) Patient denies (units ( unknown) date) fever, chills, unknown) chest pain, shortness of breath, nausea, vomiting, (unknown) (no (unknown) (unknown) Patient is in AFib (units (unknown) date) in the ED, however unknown) is rate is controlled. 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 Duong as soon as possible. You (unknown) (no (unknown) (unknown) Please return to (units (unknown) date) the ED if you have unknown) worsening signs of alcohol withdrawal (unknown) (no (unknown) (unknown) Plt Count (units (unkn own) date) (150-400) X103/uL unknown) (unknown) (no (unknown) (unknown) Plt Count 107 L (units (unknown) date) (150-400) X103/uL unknown) (unknown) (no (unknown) (unknown) Potassium (units (unkn own) date) (3.4-5.1) mmol/L unknown) (unknown) (no (unknown) (unknown) Potassium 4.8 (units ( unknown) date) (3.4-5.1) mmol/L unknown) (unknown) (no (unknown) (unknown) Prescriptions: (units (unknown) date) unknown) (unknown) (no (unknown) (unknown) Previous Rx's (units ( unknown) date) unknown) (unknown) (no (unknown) (unknown) Prothrombin Time (units (unknown) date) INR Stat unknown) (unknown) (no (unknown) (unknown) Psychiatric (units (un known) date) unknown) (unknown) (no (unknown) (unknown) Psychiatric: (units (u nknown) date) Denies anxiety, unknown) Denies behavioral changes, Reports confusion, (unknown) (no (unknown) (unknown) Pt reports taking (units (unknown) date) every other day, at unknown) best. Also stated' only takes 2 pills, (unknown) (no (unknown) (unknown) Pulse Oximetry 93 (units (unknown) date) 08/20/22 17:29 unknown) (unknown) (no (unknown) (unknown) Pulse Oximetry 93 (units (unknown) date) 96 unknown) (unknown) (no (unknown) (unknown) Pulse Oximetry 97 (units (unknown) date) 96 unknown) (unknown) (no (unknown) (unknown) Pulse Oximetry 97 (units (unknown) date) unknown) (unknown) (no (unknown) (unknown) Pulse Oximetry 98 (units (unknown) date) unknown) (unknown) (no (unknown) (unknown) Pulse Rate 79 (units ( unknown) date) unknown) (unknown) (no (unknown) (unknown) Pulse Rate 88 (units ( unknown) date) unknown) (unknown) (no (unknown) (unknown) Pulse Rate 89 85 (units (unknown) date) 80 unknown) (unknown) (no (unknown) (unknown) Pulse Rate 96 H (units (unknown) date) 08/20/22 17:29 unknown) (unknown) (no (unknown) (unknown) Pulse Rate 96 H 88 (units (unknown) date) unknown) (unknown) (no (unknown) (unknown) RBC (4.5-5.9) (units ( unknown) date) X106/uL unknown) (unknown) (no (unknown) (unknown) RBC 3.05 L (units (unk nown) date) (4.5-5.9) X106/uL unknown) (unknown) (no (unknown) (unknown) RDW (11.6-14.8) % (units (unknown) date) unknown) (unknown) (no (unknown) (unknown) RDW 13.7 (units (unkno wn) date) (11.6-14.8) % unknown) (unknown) (no (unknown) (unknown) ROS Unobtainable: (units (unknown) date) All systems unknown) reviewed + are unremarkable except as noted in HPI (unknown) (no (unknown) (unknown) Rate:?regular rate (units (unknown) date) unknown) (unknown) (no (unknown) (unknown) Referrals: (units (unk nown) date) unknown) (unknown) (no (unknown) (unknown) Related Data (units (u nknown) date) unknown) (unknown) (no (unknown) (unknown) Resp (units (unkno wn) date) unknown) (unknown) (no (unknown) (unknown) Respiratory Rate (units (unknown) date) 19 unknown) (unknown) (no (unknown) (unknown) Respiratory Rate (units (unknown) date) 20 08/20/22 17:29 unknown) (unknown) (no (unknown) (unknown) Respiratory Rate (units (unknown) date) 20 21 unknown) (unknown) (no (unknown) (unknown) Respiratory Rate (units (unknown) date) 21 unknown) (unknown) (no (unknown) (unknown) Respiratory Rate (units (unknown) date) 24 21 16 unknown) (unknown) (no (unknown) (unknown) Respiratory (units (un known) date) unknown) (unknown) (no (unknown) (unknown) Respiratory: Denies (units (unknown) date) cough, Denies unknown) dyspnea, Denies dyspnea on exertion and Denies (unknown) (no (unknown) (unknown) Rest of the workup (units (unknown) date) was unremarkable. unknown) Patient was counseled on possibility of (unknown) (no (unknown) (unknown) Review of Systems (units (unknown) date) unknown) (unknown) (no (unknown) (unknown) Rhythm:?afib (units (u nknown) date) unknown) (unknown) (no (unknown) (unknown) Signed By: (units (unk nown) date) unknown) (unknown) (no (unknown) (unknown) Sister Rheumatoid (units (unknown) date) arthritis unknown) (unknown) (no (unknown) (unknown) Skin/Breast: (units (u nknown) date) Denies pruritus, unknown) Denies erythema, Denies rash and Denies wounds (unknown) (no (unknown) (unknown) Smoking Status: (units (unknown) date) Former smoker unknown) (unknown) (no (unknown) (unknown) Social History (units (unknown) date) (Reviewed 12/25/21 unknown) @ 16:19 by Pop Delgado PA-C) (unknown) (no (unknown) (unknown) Sodium (137-145) (units (unknown) date) mmol/L unknown) (unknown) (no (unknown) (unknown) Sodium 130 L (units (u nknown) date) (137-145) mmol/L unknown) (unknown) (no (unknown) (unknown) Sodium Chloride (units (unknown) date) (Normal Saline unknown) 0.9%) 1,000 mls @ 1,000 mls/hr IV BOLUS ONE (unknown) (no (unknown) (unknown) Source: patient (units (unknown) date) unknown) (unknown) (no (unknown) (unknown) Stand Alone Forms: (units (unknown) date) Patient Portal/API unknown) (unknown) (no (unknown) (unknown) Stated Complaint: (units (unknown) date) a-fib/passed out unknown) this morning (unknown) (no (unknown) (unknown) Stop: 08/20/22 (units (unknown) date) 17:37 unknown) (unknown) (no (unknown) (unknown) Stop: 08/20/22 (units (unknown) date) 18:21 unknown) (unknown) (no (unknown) (unknown) Stop: 08/20/22 (units (unknown) date) 19:20 unknown) (unknown) (no (unknown) (unknown) Stop: 08/20/22 (units (unknown) date) 19:56 unknown) (unknown) (no (unknown) (unknown) Substance Use (units ( unknown) date) Type: does not use unknown) (unknown) (no (unknown) (unknown) Surgical History (units (unknown) date) (Reviewed 12/25/21 unknown) @ 16:19 by Pop Delgado PA-C) (unknown) (no (unknown) (unknown) Temperature 98.6 F (units (unknown) date) 08/20/22 17:29 unknown) (unknown) (no (unknown) (unknown) Temperature 98.6 F (units (unknown) date) unknown) (unknown) (no (unknown) (unknown) Temperature (units (un known) date) unknown) (unknown) (no (unknown) (unknown) Tenderness to (units ( unknown) date) palpation of unknown) right-sided, posterolateral ribs (unknown) (no (unknown) (unknown) Throat:?posterior (units (unknown) date) oropharynx normal unknown) (unknown) (no (unknown) (unknown) Time Seen by (units (u nknown) date) Provider: 08/20/22 unknown) 17:36 (unknown) (no (unknown) (unknown) Total Bilirubin (units (unknown) date) (0.2-1.3) mg/dL unknown) (unknown) (no (unknown) (unknown) Total Bilirubin (units (unknown) date) 1.3 (0.2-1.3) mg/dL unknown) (unknown) (no (unknown) (unknown) Total Creatine (units (unknown) date) Kinase (55-170) U/L unknown) (unknown) (no (unknown) (unknown) Total Creatine (units (unknown) date) Kinase 144 (55-170) unknown) U/L (unknown) (no (unknown) (unknown) Total Protein (units ( unknown) date) (6.3-8.2) g/dL unknown) (unknown) (no (unknown) (unknown) Total Protein 6.6 (units (unknown) date) (6.3-8.2) g/dL unknown) (unknown) (no (unknown) (unknown) Troponin + CK (units ( unknown) date) Cardiac Panel Stat unknown) (unknown) (no (unknown) (unknown) Troponin I (units (unk nown) date) (0.01-0.034) ng/mL unknown) (unknown) (no (unknown) (unknown) Troponin I 0.013 (units (unknown) date) (0.01-0.034) ng/mL unknown) (unknown) (no (unknown) (unknown) Ur Culture (units (unk nown) date) Indicated? Cult not unknown) indicated (unknown) (no (unknown) (unknown) Ur Culture (units (unk nown) date) Indicated? unknown) (unknown) (no (unknown) (unknown) Urine Bacteria (units (unknown) date) (None) unknown) (unknown) (no (unknown) (unknown) Urine Bacteria (units (unknown) date) None seen (None) unknown) (unknown) (no (unknown) (unknown) Urine Dip (units (unkn own) date) unknown) (unknown) (no (unknown) (unknown) Urine Microscopic (units (unknown) date) Stat unknown) (unknown) (no (unknown) (unknown) Urine RBC (units (unkn own) date) (0-5/HPF) unknown) (unknown) (no (unknown) (unknown) Urine RBC None (units (unknown) date) seen (0-5/HPF) unknown) (unknown) (no (unknown) (unknown) Urine Specific (units (unknown) date) [place] 1.010 unknown) (unknown) (no (unknown) (unknown) Urine WBC (units (unkn own) date) (0-5/HPF) unknown) (unknown) (no (unknown) (unknown) Urine WBC None (units (unknown) date) seen (0-5/HPF) unknown) (unknown) (no (unknown) (unknown) Vital Signs - 8 hr (units (unknown) date) unknown) (unknown) (no (unknown) (unknown) Vital Signs (units (un known) date) unknown) (unknown) (no (unknown) (unknown) Vital signs: (units (u nknown) date) unknown) (unknown) (no (unknown) (unknown) WBC (4.5-11.0) (units (unknown) date) X103/uL unknown) (unknown) (no (unknown) (unknown) WBC 7.4 (4.5-11.0) (units (unknown) date) X103/uL unknown) (unknown) (no (unknown) (unknown) Withdrawal (units (unk nown) date) unknown) (unknown) (no (unknown) (unknown) XR chest 1V Stat (units (unknown) date) unknown) (unknown) (no (unknown) (unknown) You were evaluated (units (unknown) date) in the ED today for unknown) palpitations. Your NT proBNP was (unknown) (no (unknown) (unknown) [Embedded Image (units (unknown) date) Not Available] unknown) (unknown) (no (unknown) (unknown) abdominal pain, (units (unknown) date) dysuria, unknown) lightheadedness, dizziness, syncope. Patient was (unknown) (no (unknown) (unknown) administrative (units (unknown) date) purposes only. I unknown) did not have direct contact with this patient (unknown) (no (unknown) (unknown) alcohol intake (units (unknown) date) frequency: 3 or unknown) more drinks per day (unknown) (no (unknown) (unknown) alcohol intake: (units (unknown) date) current unknown) (unknown) (no (unknown) (unknown) amoxicillin (units (un known) date) [AMOXICILLIN] unknown) Allergy Severe SWOLLEN JAW Verified 08/20/22 17:41 (unknown) (no (unknown) (unknown) an assist to get (units (unknown) date) patient into her unknown) car so she could bring him to the ED. (unknown) (no (unknown) (unknown) and Denies (units (unk nown) date) orthopnea unknown) (unknown) (no (unknown) (unknown) and Denies urinary (units (unknown) date) urgency unknown) (unknown) (no (unknown) (unknown) and below (units (unkn own) date) unknown) (unknown) (no (unknown) (unknown) appears well and (units (unknown) date) there is no unknown) indication to hospitalize him today. ED return (unknown) (no (unknown) (unknown) appointment today (units (unknown) date) and that she is not unknown) aware of him falling earlier this morning. (unknown) (no (unknown) (unknown) changes. CT chest (units (unknown) date) shows possible unknown) pneumonia, however there is no clinical (unknown) (no (unknown) (unknown) chooses to go home (units (unknown) date) hand will drink unknown) again if he is at risk of going into (unknown) (no (unknown) (unknown) clindamycin (units (un known) date) [CLINDAMYCIN] unknown) AdvReac Severe C-DIFF Verified 08/20/22 17:41 (unknown) (no (unknown) (unknown) consciousness. (units (unknown) date) Patient's unknown) states that he was unable to get up, she called (unknown) (no (unknown) (unknown) correlation with (units (unknown) date) patient's symptoms. unknown) Most likely atelectasis versus pneumonia. (unknown) (no (unknown) (unknown) couple of days (units (unknown) date) later he goes back unknown) to buying are liquor. Patient's states (unknown) (no (unknown) (unknown) dangerous and lead (units (unknown) date) to serious unknown) conditions including, and Please also return (unknown) (no (unknown) (unknown) days which is (units ( unknown) date) longer than normal unknown) for him. Patient endorses palpitations, (unknown) (no (unknown) (unknown) detox, dangers of (units (unknown) date) alcohol withdrawal. unknown) Patient verbalizes understanding and (unknown) (no (unknown) (unknown) diarrhea, Denies (units (unknown) date) nausea and Denies unknown) vomiting (unknown) (no (unknown) (unknown) dose of Lasix (units ( unknown) date) today in the ED for unknown) it. You were also being sent home with a (unknown) (no (unknown) (unknown) drinks hard (units (un known) date) liquor, when he unknown) runs out he resorts to wine or beer. However, a (unknown) (no (unknown) (unknown) during this visit. (units (unknown) date) They were seen unknown) independently by the [facility]. (unknown) (no (unknown) (unknown) elevated, which is (units (unknown) date) an indication of unknown) congestive heart failure. You were given a (unknown) (no (unknown) (unknown) falls, Reports (units (unknown) date) lethargy, Reports unknown) poor appetite and Reports weakness (unknown) (no (unknown) (unknown) feeling uneasy. (units (unknown) date) Patient is unknown) accompanied by his . Patient also appears (unknown) (no (unknown) (unknown) for alcohol (units (un known) date) withdrawal versus unknown) alcohol intoxication versus UTI versus pneumonia (unknown) (no (unknown) (unknown) fracture/dislocati (units (unknown) date) on versus unknown) intracranial hemorrhage versus other. Will obtain (unknown) (no (unknown) (unknown) furosemide 20 mg (units (unknown) date) tablet 10 mg PO QAM unknown) #45 tabs 12/15/21 (unknown) (no (unknown) (unknown) furosemide 20 mg (units (unknown) date) tablet unknown) (unknown) (no (unknown) (unknown) furosemide 40 mg (units (unknown) date) tablet (Lasix) 40 unknown) mg PO QAM #30 tabs 08/20/22 (unknown) (no (unknown) (unknown) furosemide [Lasix] (units (unknown) date) 40 mg tablet unknown) (unknown) (no (unknown) (unknown) had any seizures (units (unknown) date) in the last day or unknown) 2. 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 (units (unknown) date) Patient had mild unknown) alcohol withdrawal with a CIWA score of 9 (unknown) (no (unknown) (unknown) his withdrawal (units (unknown) date) symptoms greatly unknown) improved. Patient states that he does not feel (unknown) (no (unknown) (unknown) household members: (units (unknown) date) none unknown) (unknown) (no (unknown) (unknown) including tremors, (units (unknown) date) seizures, anxiety, unknown) agitation. Alcohol withdrawal can be (unknown) (no (unknown) (unknown) inital exam (units (un known) date) unknown) (unknown) (no (unknown) (unknown) into the ED. (units (u nknown) date) Patient was walking unknown) down the stairs, slipped on the last stair, (unknown) (no (unknown) (unknown) labs, UA, EKG, (units (unknown) date) chest x-ray, unknown) troponin, ETOH, CT head, CT C-spine, CT chest. (unknown) (no (unknown) (unknown) lightheadedness, (units (unknown) date) Denies unknown) palpitations, Denies dyspnea, Denies dyspnea on exertion (unknown) (no (unknown) (unknown) like he is in AFib (units (unknown) date) anymore. EKG showed unknown) AFib without RVR and no acute ST-T (unknown) (no (unknown) (unknown) marital status: (units (unknown) date) unknown) (unknown) (no (unknown) (unknown) metoprolol (units (unk nown) date) succinate 25 mg 25 unknown) mg PO DAILY #30 tabs 10/30/21 (unknown) (no (unknown) (unknown) metoprolol (units (unk nown) date) succinate 25 mg unknown) tablet extended release 24 hr (unknown) (no (unknown) (unknown) morning. Patient's (units (unknown) date) who was unknown) present, clarified that there was no doctor's (unknown) (no (unknown) (unknown) neck pain, Denies (units (unknown) date) sore throat and unknown) Denies throat swelling (unknown) (no (unknown) (unknown) not taking the (units (unknown) date) Eliquis. It is unknown) unclear if patient is compliant with metoprolol (unknown) (no (unknown) (unknown) numbness, Denies (units (unknown) date) tingling and unknown) Reports weakness (unknown) (no (unknown) (unknown) occupational (units (u nknown) date) status: previously unknown) employed (unknown) (no (unknown) (unknown) on presentation to (units (unknown) date) the ED. Patient was unknown) given a dose of Ativan, following which (unknown) (no (unknown) (unknown) or furosemide. (units (unknown) date) unknown) (unknown) (no (unknown) (unknown) oriented to the (units (unknown) date) day of the week. unknown) Patient's states that he has been having (unknown) (no (unknown) (unknown) patient home with (units (unknown) date) a prescription for unknown) Lasix until he is able to see Dr. Duong, (unknown) (no (unknown) (unknown) patient's (units (unkn own) date) emergency unknown) department visit. This chart is signed by myself for (unknown) (no (unknown) (unknown) patient's (units (unknown) date) states that his unknown) last drink was last night, however patient (unknown) (no (unknown) (unknown) precautions were (units (unknown) date) discussed with unknown) patient and patient's . They verbalized (unknown) (no (unknown) (unknown) prescription for (units (unknown) date) Lasix to take daily unknown) until you are able to see Dr. Duong. (unknown) (no (unknown) (unknown) recalls that his (units (unknown) date) last drink was last unknown) Friday. Patient does not appear (unknown) (no (unknown) (unknown) recommended to take (units (unknown) date) Eliquis for the unknown) AFib, however feet confirms today that he is (unknown) (no (unknown) (unknown) short-term memory (units (unknown) date) issues for the last unknown) several years. It is unclear if patient (unknown) (no (unknown) (unknown) since he was (units (u nknown) date) feeling weak. unknown) Unsure if he hit his head. There was no loss of (unknown) (no (unknown) (unknown) since it RX'd'. (units (unknown) date) unknown) (unknown) (no (unknown) (unknown) somewhat confused, (units (unknown) date) stated that he fell unknown) when he went to see the doctor this (unknown) (no (unknown) (unknown) states that he (units (unknown) date) experiences AFib on unknown) and off, however it has been prolonged for 2 (unknown) (no (unknown) (unknown) substance use (units ( unknown) date) type: does not use unknown) (unknown) (no (unknown) (unknown) suicidal ideation (units (unknown) date) unknown) (unknown) (no (unknown) (unknown) tablet,extended (units (unknown) date) release 24 hr unknown) (unknown) (no (unknown) (unknown) that his mental (units (unknown) date) state is much clear unknown) when he is not drinking hard liquor. (unknown) (no (unknown) (unknown) to the ED if you (units (unknown) date) experience any unknown) chest pain or shortness of breath. (unknown) (no (unknown) (unknown) understanding. (units (unknown) date) unknown) (unknown) (no (unknown) (unknown) versus ACS versus (units (unknown) date) CHF exacerbation unknown) versus dehydration versus dementia versus (unknown) (no (unknown) (unknown) were also in mild (units (unknown) date) alcohol withdrawal unknown) for which you were given a dose of Ativan. (unknown) (no (unknown) (unknown) wheezing (units (unkno wn) date) unknown) (unknown) (no (unknown) (unknown) withdrawal (units (unk nown) date) presents to the ED unknown) with 2 days of palpitations from AFib. Concern (unknown) (no (unknown) (unknown) withdrawal (units (unk nown) date) presents to the ED unknown) with 2 days of palpitations from AFib. Patient (unknown) (no (unknown) (unknown) withdrawal. (units (un known) date) Patient agrees to unknown) take the Lasix and metoprolol daily. Patient Result panel [id number] (unknown) (no (unknown) (unknown) (no value) (units (unk nown) date) unknown) (unknown) (no (unknown) (unknown) [id number] (units (unkno wn) date) unknown) (unknown) (no (unknown) (unknown) 08/21/22 (units (unkno wn) date) unknown) (unknown) (no (unknown) (unknown) 1. 1. No CT (units (un known) date) evidence of acute unknown) intracranial trauma. (unknown) (no (unknown) (unknown) 1. No new (units (unkn own) date) fractures. unknown) (unknown) (no (unknown) (unknown) 1. Possibly acute (units (unknown) date) nondisplaced right unknown) posterior 11th rib fracture. (unknown) (no (unknown) (unknown) [address] [place] [address] (units (unknown) date) unknown) (unknown) (no (unknown) (unknown) 18:21. (units (unkno wn) date) unknown) (unknown) (no (unknown) (unknown) 2. Chronic (units (unk nown) date) degenerative and unknown) remote posttraumatic changes as described. (unknown) (no (unknown) (unknown) 2. Moderate to (units (unknown) date) severe hepatic unknown) steatosis. (unknown) (no (unknown) (unknown) 2. No significant (units (unknown) date) soft tissue injury unknown) or underlying fracture. (unknown) (no (unknown) (unknown) 3. Chronic (units (unk nown) date) microvascular unknown) ischemic changes and remote appearing tiny left (unknown) (no (unknown) (unknown) 3. Normal right (units (unknown) date) kidney without unknown) laceration. (unknown) (no (unknown) (unknown) 4. Several (units (unk nown) date) chronic appearing unknown) and stable vertebral body compression fractures. (unknown) (no (unknown) (unknown) 11/19/2021, 19:57. (units (unknown) date) [facility], unknown) CT, CT ANGIO CHEST PE PROTOCOL, 06/30/2022, (unknown) (no (unknown) (unknown) ABDOMEN: (units (unkno wn) date) unknown) (unknown) (no (unknown) (unknown) Abdominal Nodes: (units (unknown) date) No retroperitoneal unknown) or mesenteric adenopathy by size criteria. (unknown) (no (unknown) (unknown) Accession Number: (units (unknown) date) [id number] unknown) (unknown) (no (unknown) (unknown) Accession Number: (units (unknown) date) [id number] unknown) (unknown) (no (unknown) (unknown) Accession Number: (units (unknown) date) [id number] unknown) (unknown) (no (unknown) (unknown) Adrenal Glands: (units (unknown) date) No nodules. unknown) (unknown) (no (unknown) (unknown) After the (units (unkn own) date) administration of unknown) intravenous contrast, axial sections acquired from (unknown) (no (unknown) (unknown) Age/Sex: 76 / M (units (unknown) date) Date of Service: unknown) (unknown) (no (unknown) (unknown) BONNY Pena (units ( unknown) date) [id number] unknown) (unknown) (no (unknown) (unknown) Appendix not (units (u nknown) date) unknown) (unknown) (no (unknown) (unknown) Approved by: (units (u nknown) date) Kenisha Milian, unknown) Beau.D. on 08/21/2022 at 1:40 (unknown) (no (unknown) (unknown) Approved by: (units (u nknown) date) dariusz Le) Joanna on 08/21/2022 at 1:45 (unknown) (no (unknown) (unknown) Approved by: (units (u nknown) date) Kenisha Milian unknown) Joanna on 08/21/2022 at 1:56 (unknown) (no (unknown) (unknown) Biliary ducts: (units (unknown) date) Nondilated unknown) (unknown) (no (unknown) (unknown) Bladder: Normal. (units (unknown) date) unknown) (unknown) (no (unknown) (unknown) Bones: (units (unkno wn) date) Nondisplaced right unknown) posterior 11th rib fracture. Probably acute. Minor (unknown) (no (unknown) (unknown) Bones: There is (units (unknown) date) degenerative unknown) anterior height loss of C7. Mild to moderate (unknown) (no (unknown) (unknown) Brain: No (units (unkn own) date) intracranial unknown) bleeds or masses. There is cerebral volume loss for (unknown) (no (unknown) (unknown) COMPARISON: (units (un known) date) [facility], unknown) CT, CT CERVICAL SPINE [facility], 08/20/2022, 18:43. (unknown) (no (unknown) (unknown) COMPARISON: (units (un known) date) [facility], unknown) CT, CT HEAD/BRAIN [facility], 08/20/2022, 18:07. (unknown) (no (unknown) (unknown) [facility]: [facility] (un known) [facility]EL[facility] WITH CONTRAST, (unknown) (no (unknown) (unknown) CSF spaces: Basal (units (unknown) date) cisterns are unknown) patent. No extra-axial fluid collections. The (unknown) (no (unknown) (unknown) CT Scan Report (units (unknown) date) unknown) (unknown) (no (unknown) (unknown) : 1945 (units (unknown) date) Acct:[id number] unknown) (unknown) (no (unknown) (unknown) Dictated by: (units (u nknown) date) Kenisha Milian unknown) Joanna on 08/21/2022 at 1:38 (unknown) (no (unknown) (unknown) Dictated by: (units (u nknown) date) Kenisha Milian unknown) Joanna on 08/21/2022 at 1:41 (unknown) (no (unknown) (unknown) Dictated by: (units (u nknown) date) Kenisha Milian unknown) Joanna on 08/21/2022 at 1:45 (unknown) (no (unknown) (unknown) FINDINGS: (units (unkn own) date) unknown) (unknown) (no (unknown) (unknown) For (units (unkno wn) date) unknown) (unknown) (no (unknown) (unknown) Gallbladder: (units (u nknown) date) Decompressed unknown) (unknown) (no (unknown) (unknown) Heart: Moderate (units (unknown) date) cardiomegaly. unknown) (unknown) (no (unknown) (unknown) IMPRESSION: (units (un known) date) unknown) (unknown) (no (unknown) (unknown) INDICATIONS: (units (u nknown) date) Fall, alcohol use, unknown) left-sided head injury (unknown) (no (unknown) (unknown) INDICATIONS: (units (u nknown) date) Fall, right-sided unknown) paraspinal cervical pain (unknown) (no (unknown) (unknown) INDICATIONS: (units (u nknown) date) Right side flank unknown) pain after fall (unknown) (no (unknown) (unknown) Image quality: (units (unknown) date) Excellent. unknown) (unknown) (no (unknown) (unknown) [facility] (units (unknown) date) unknown) (unknown) (no (unknown) (unknown) Kidneys and (units (un known) date) Ureters: Symmetric unknown) enhancement. No nephrolithiasis or (unknown) (no (unknown) (unknown) Liver: Moderate (units (unknown) date) to significant unknown) hepatic steatosis. No focal liver lesion. No (unknown) (no (unknown) (unknown) Loc: ED (units (unkno wn) date) unknown) (unknown) (no (unknown) (unknown) Lung bases: (units (un known) date) Bibasilar unknown) atelectatic and/or gravitational changes. (unknown) (no (unknown) (unknown) Miscellaneous: No (units (unknown) date) hernias are seen. unknown) (unknown) (no (unknown) (unknown) Moderate (units (unkno wn) date) unknown) (unknown) (no (unknown) (unknown) Noncontrast 3 mm (units (unknown) date) thick sections unknown) acquired from the skull base to the T4 level. (unknown) (no (unknown) (unknown) Noncontrast 4.5 (units (unknown) date) mm thick angled unknown) axial sections acquired from the foramen magnum (unknown) (no (unknown) (unknown) Ordering (units (unkno wn) date) Provider: unknown) Eleazar Ramos D.O. (unknown) (no (unknown) (unknown) PELVIS: (units (unkno wn) date) unknown) (unknown) (no (unknown) (unknown) PROCEDURE: CT (units ( unknown) date) ABDOMEN PELVIS W unknown) CON (unknown) (no (unknown) (unknown) PROCEDURE: CT (units ( unknown) date) CERVICAL SPINE WO unknown) CON (unknown) (no (unknown) (unknown) PROCEDURE: CT (units ( unknown) date) HEAD/BRAIN WO CON unknown) (unknown) (no (unknown) (unknown) Pancreas: Normal. (units (unknown) date) unknown) (unknown) (no (unknown) (unknown) Patient: (units (unkno wn) date) Eleazar Charles unknown) MR#: [id number] (unknown) (no (unknown) (unknown) Pelvic Nodes: No (units (unknown) date) enlarged lymph unknown) nodes. (unknown) (no (unknown) (unknown) Pelvic Organs: (units (unknown) date) Mild unknown) prostatomegaly. Large, partially imaged right hydrocele. (unknown) (no (unknown) (unknown) Peritoneum: No (units (unknown) date) abnormal unknown) intraperitoneal fluid. No free air. (unknown) (no (unknown) (unknown) Procedure: CT (units ( unknown) date) abdomen pelvis w unknown) con (unknown) (no (unknown) (unknown) Procedure: CT (units ( unknown) date) cervical spine wo unknown) con (unknown) (no (unknown) (unknown) Procedure: CT (units ( unknown) date) head/brain wo con unknown) (unknown) (no (unknown) (unknown) Sagittal (units (unkno wn) date) unknown) (unknown) (no (unknown) (unknown) Signed (units (unkno wn) date) unknown) (unknown) (no (unknown) (unknown) Sinuses: (units (unkno wn) date) Visualized sinuses unknown) and mastoids are clear. (unknown) (no (unknown) (unknown) Skull and face: (units (unknown) date) Calvarium and unknown) visualized facial bones appear intact, without (unknown) (no (unknown) (unknown) Soft tissues: (units ( unknown) date) Prevertebral soft unknown) tissues are normal in thickness. No (unknown) (no (unknown) (unknown) Spleen: Normal (units (unknown) date) size. unknown) (unknown) (no (unknown) (unknown) Stomach and (units (un known) date) Bowel: Stomach, unknown) small bowel loops, and colon are unremarkable. (unknown) (no (unknown) (unknown) T10 (units (unkno wn) date) unknown) (unknown) (no (unknown) (unknown) TECHNIQUE: (units (unk nown) date) unknown) (unknown) (no (unknown) (unknown) Ventral Wall: No (units (unknown) date) hernias. unknown) (unknown) (no (unknown) (unknown) Vessels: Aorta (units (unknown) date) and inferior vena unknown) cava are normal in size. Heavy abdominal (unknown) (no (unknown) (unknown) adjustment (units (unk nown) date) unknown) (unknown) (no (unknown) (unknown) age, with (units (unkn own) date) unknown) (unknown) (no (unknown) (unknown) and coronal (units (un known) date) reformats were unknown) then constructed. For radiation dose reduction, the (unknown) (no (unknown) (unknown) anterior and (units (u nknown) date) unknown) (unknown) (no (unknown) (unknown) aortic (units (unkno wn) date) unknown) (unknown) (no (unknown) (unknown) atherosclerotic (units (unknown) date) calcification. unknown) (unknown) (no (unknown) (unknown) bases to the (units (u nknown) date) pubic symphysis. unknown) Coronal and sagittal reformats were performed. (unknown) (no (unknown) (unknown) calcification. (units (unknown) date) unknown) (unknown) (no (unknown) (unknown) compression (units (un known) date) unknown) (unknown) (no (unknown) (unknown) cortical loss (units ( unknown) date) unknown) (unknown) (no (unknown) (unknown) following (units (unkn own) date) unknown) (unknown) (no (unknown) (unknown) fracture with (units ( unknown) date) anterior endplate unknown) osteophytosis. 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 (units (unk nown) date) unknown) (unknown) (no (unknown) (unknown) hematomas. No (units ( unknown) date) apical unknown) pneumothoraces. Moderate to heavy carotid bulb (unknown) (no (unknown) (unknown) hydronephrosis. (units (unknown) date) No unknown) (unknown) (no (unknown) (unknown) hydroureter. (units (u nknown) date) Specifically, no unknown) evidence of right renal trauma. (unknown) (no (unknown) (unknown) in the left (units (un known) date) posterior parietal unknown) region, presumably tiny infarct. There is (unknown) (no (unknown) (unknown) infarct. (units (unkno wn) date) unknown) (unknown) (no (unknown) (unknown) internal carotid (units (unknown) date) artery unknown) atherosclerosis. (unknown) (no (unknown) (unknown) intracranial (units (u nknown) date) unknown) (unknown) (no (unknown) (unknown) laceration. (units (un known) date) unknown) (unknown) (no (unknown) (unknown) lesions. (units (unkno wn) date) unknown) (unknown) (no (unknown) (unknown) of mA and/or kV (units (unknown) date) according to unknown) patient size. (unknown) (no (unknown) (unknown) paravertebral (units ( unknown) date) unknown) (unknown) (no (unknown) (unknown) parietal (units (unkno wn) date) unknown) (unknown) (no (unknown) (unknown) patient (units (unkno wn) date) unknown) (unknown) (no (unknown) (unknown) periventricular (units (unknown) date) and deep unknown) (unknown) (no (unknown) (unknown) posterior (units (unkn own) date) endplate spurs unknown) from C5 through C7. Chronic T2 anterior wedge (unknown) (no (unknown) (unknown) process fracture (units (unknown) date) of T1. This unknown) appears well corticated. There are no acute (unknown) (no (unknown) (unknown) radiation dose (units (unknown) date) reduction, the unknown) following was used: automated exposure control, (unknown) (no (unknown) (unknown) resultant (units (unkn own) date) ventricular and unknown) sulcal prominence. There are moderate (unknown) (no (unknown) (unknown) seen. (units (unkno wn) date) unknown) (unknown) (no (unknown) (unknown) size. (units (unkno wn) date) unknown) (unknown) (no (unknown) (unknown) spinous (units (unkno wn) date) unknown) (unknown) (no (unknown) (unknown) superior endplate (units (unknown) date) depression. unknown) Moderate anterior wedge compression of T12. (unknown) (no (unknown) (unknown) superior endplate (units (unknown) date) scalloping of L1 unknown) and L2. None appear acute. (unknown) (no (unknown) (unknown) suspicious (units (unk nown) date) unknown) (unknown) (no (unknown) (unknown) the lung (units (unkno wn) date) unknown) (unknown) (no (unknown) (unknown) to the (units (unkno wn) date) unknown) (unknown) (no (unknown) (unknown) ventricles are (units (unknown) date) symmetric in size unknown) and shape. (unknown) (no (unknown) (unknown) vertex, with (units (u nknown) date) coronal and unknown) sagittal reformats. For radiation dose reduction, the (unknown) (no (unknown) (unknown) was used: (units (unkn own) date) automated exposure unknown) control, adjustment of mA and/or kV according to (unknown) (no (unknown) (unknown) white matter (units (u nknown) date) chronic small unknown) vessel ischemic changes. There is a small area Result panel 928 (unknown) (no (unknown) (unknown) (no value) (units (unk nown) date) unknown) (unknown) (no (unknown) (unknown) [id number] (units (unkno wn) date) unknown) (unknown) (no (unknown) (unknown) 10 mg PO QAM (units (u nknown) date) Qty: 45 1RF unknown) (unknown) (no (unknown) (unknown) 25 mg PO DAILY (units (unknown) date) Qty: 30 0RF unknown) (unknown) (no (unknown) (unknown) 40 mg PO QAM (units (u nknown) date) Qty: 30 0RF unknown) (unknown) (no (unknown) (unknown) Age/Sex: 76 / M (units (unknown) date) unknown) (unknown) (no (unknown) (unknown) Alcohol abuse (units ( unknown) date) unknown) (unknown) (no (unknown) (unknown) Alcohol type: (units ( unknown) date) beer, wine and unknown) hard liquor (unknown) (no (unknown) (unknown) Alcohol (units (unkno wn) date) withdrawal unknown) delirium (unknown) (no (unknown) (unknown) Alcohol (units (unkno wn) date) withdrawal unknown) (unknown) (no (unknown) (unknown) Allergies (units (unkn own) date) unknown) (unknown) (no (unknown) (unknown) Allergy/AdvReac (units (unknown) date) Type Severity unknown) Reaction Status Date / Time (unknown) (no (unknown) (unknown) Anemia, chronic (units (unknown) date) disease unknown) (unknown) (no (unknown) (unknown) Atrial (units (unkno wn) date) fibrillation unknown) (unknown) (no (unknown) (unknown) BPH w urinary (units ( unknown) date) obs/LUTS unknown) (unknown) (no (unknown) (unknown) Cardiomyopathy (units (unknown) date) unknown) (unknown) (no (unknown) (unknown) : 1945 (units (unknown) date) Acct:[id number] unknown) (unknown) (no (unknown) (unknown) Date of Service: (units (unknown) date) 08/21/22 unknown) (unknown) (no (unknown) (unknown) Departure (units (unkn own) date) unknown) (unknown) (no (unknown) (unknown) Discharge Plan (units (unknown) date) unknown) (unknown) (no (unknown) (unknown) ER Physician: (units ( unknown) date) Eleazar Ramos unknown) D.O. (unknown) (no (unknown) (unknown) Emergency Report (units (unknown) date) unknown) (unknown) (no (unknown) (unknown) Family History (units (unknown) date) (Reviewed unknown) 12/25/21 @ 16:19 by Pop Delgado PA-C) (unknown) (no (unknown) (unknown) Former smoker (units ( unknown) date) unknown) (unknown) (no (unknown) (unknown) Jeannette Chaudhary, (units (unknown) date) MD [Primary Care unknown) Provider] (unknown) (no (unknown) (unknown) General (units (unkno wn) date) unknown) (unknown) (no (unknown) (unknown) Gout (units (unkno wn) date) unknown) (unknown) (no (unknown) (unknown) HPI - General (units ( unknown) date) Adult unknown) (unknown) (no (unknown) (unknown) HTN (units (unkno wn) date) (hypertension) unknown) (unknown) (no (unknown) (unknown) 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 (unknown) (no (unknown) (unknown) History of (units (unk nown) date) percutaneous unknown) endoscopic gastrostomy (-2019) (unknown) (no (unknown) (unknown) [facility] (units (unknown) date) [address] unknown) [place] [address] (unknown) (no (unknown) (unknown) Label Comments: (units (unknown) date) unknown) (unknown) (no (unknown) (unknown) Medical History (units (unknown) date) (Reviewed unknown) 12/25/21 @ 16:19 by Pop Delgado PA-C) (unknown) (no (unknown) (unknown) Medication (units (unk nown) date) Instructions unknown) Recorded (unknown) (no (unknown) (unknown) Mixed (units (unkno wn) date) hyperlipidemia unknown) (unknown) (no (unknown) (unknown) 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 Also stated' only takes 2 pills, (unknown) (no (unknown) (unknown) Referrals: (units (unk nown) date) unknown) (unknown) (no (unknown) (unknown) Related Data (units (u nknown) date) unknown) (unknown) (no (unknown) (unknown) Signed By: (units (unk nown) date) unknown) (unknown) (no (unknown) (unknown) Sister (units (unkno wn) date) Rheumatoid unknown) arthritis (unknown) (no (unknown) (unknown) Smoking Status: (units (unknown) date) Former smoker unknown) (unknown) (no (unknown) (unknown) Social History (units (unknown) date) (Reviewed unknown) 12/25/21 @ 16:19 by Pop Delgado PA-C) (unknown) (no (unknown) (unknown) Stated (units (unkno wn) date) complaint: GLF unknown) hit head (unknown) (no (unknown) (unknown) Substance Use (units ( unknown) date) Type: does not unknown) use (unknown) (no (unknown) (unknown) Surgical History (units (unknown) date) (Reviewed unknown) 12/25/21 @ 16:19 by Pop Delgado PA-C) (unknown) (no (unknown) (unknown) Time Seen by (units (u nknown) date) Provider: unknown) 08/21/22 00:18 (unknown) (no (unknown) (unknown) alcohol intake (units (unknown) date) frequency: 3 or unknown) more drinks per day (unknown) (no (unknown) (unknown) alcohol intake: (units (unknown) date) current unknown) (unknown) (no (unknown) (unknown) amoxicillin (units (un known) date) [AMOXICILLIN] unknown) Allergy Severe SWOLLEN JAW Verified 08/20/22 17:41 (unknown) (no (unknown) (unknown) clindamycin (units (un known) date) [CLINDAMYCIN] unknown) AdvReac Severe C-DIFF Verified 08/20/22 17:41 (unknown) (no (unknown) (unknown) furosemide 20 mg (units (unknown) date) tablet 10 mg PO unknown) QAM #45 tabs 12/15/21 (unknown) (no (unknown) (unknown) furosemide 20 mg (units (unknown) date) tablet unknown) (unknown) (no (unknown) (unknown) furosemide 40 mg (units (unknown) date) tablet (Lasix) 40 unknown) mg PO QAM #30 tabs 08/20/22 (unknown) (no (unknown) (unknown) furosemide (units (unk nown) date) [Lasix] 40 mg unknown) tablet (unknown) (no (unknown) (unknown) household (units (unkn own) date) members: none unknown) (unknown) (no (unknown) (unknown) marital status: (units (unknown) date) unknown) (unknown) (no (unknown) (unknown) metoprolol (units (unk nown) date) succinate 25 mg unknown) 25 mg PO DAILY #30 tabs 10/30/21 (unknown) (no (unknown) (unknown) metoprolol (units (unk nown) date) succinate 25 mg unknown) tablet extended release 24 hr (unknown) (no (unknown) (unknown) occupational (units (u nknown) date) status: unknown) previously employed (unknown) (no (unknown) (unknown) since it RX'd'. (units (unknown) date) unknown) (unknown) (no (unknown) (unknown) substance use (units ( unknown) date) type: does not unknown) use (unknown) (no (unknown) (unknown) tablet,extended (units (unknown) date) release 24 hr unknown) Result panel 929 (unknown) (no date) (unknown) (unknown) 0 /ul (unkn own) (unknown) (no date) (unknown) (unknown) 0 /ul (unkn own) (unknown) (no date) (unknown) (unknown) 0.3 % (unkn own) (unknown) (no date) (unknown) (unknown) 0.8 % (unkn own) (unknown) (no date) (unknown) (unknown) 104.0 fl (unkn own) (unknown) (no date) (unknown) (unknown) 11.2 g/dl (unkn own) (unknown) (no date) (unknown) (unknown) 113 x10 3/ul (unkn own) (unknown) (no date) (unknown) (unknown) 13.9 % (unkn own) (unknown) (no date) (unknown) (unknown) 3.10 x10 6/ul (unkn own) (unknown) (no date) (unknown) (unknown) 32.2 % (unkn own) (unknown) (no date) (unknown) (unknown) 34.7 % (unkn own) (unknown) (no date) (unknown) (unknown) 36.1 pg (unkn own) (unknown) (no date) (unknown) (unknown) 400 /ul (unkn own) (unknown) (no date) (unknown) (unknown) 4700 /ul (unkn own) (unknown) (no date) (unknown) (unknown) 5.6 x10 3/ul (unkn own) (unknown) (no date) (unknown) (unknown) 500 /ul (unkn own) (unknown) (no date) (unknown) (unknown) 7.5 % (unkn own) (unknown) (no date) (unknown) (unknown) 8.2 % (unkn own) (unknown) (no date) (unknown) (unknown) 83.2 % (unkn own) Result panel 930 (unknown) (no date) (unknown) (unknown) > 60 ml/min (unkn own) (unknown) (no date) (unknown) (unknown) > 60 ml/min (unkn own) (unknown) (no date) (unknown) (unknown) < 10 mg/dl (unkn own) (unknown) (no date) (unknown) (unknown) < 10 mg/dl (unkn own) (unknown) (no date) (unknown) (unknown) 1.20 mg/dl (unkn own) (unknown) (no date) (unknown) (unknown) 116 mg/dl (unkn own) (unknown) (no date) (unknown) (unknown) 116 mg/dl (unkn own) (unknown) (no date) (unknown) (unknown) 135 mmol/l (unkn own) (unknown) (no date) (unknown) (unknown) 14.2 (units unknown) (unknown) (unknown) (no date) (unknown) (unknown) 17 mg/dl (unkn own) (unknown) (no date) (unknown) (unknown) 23 mmol/l (unkn own) (unknown) (no date) (unknown) (unknown) 3.8 mmol/l (unkn own) (unknown) (no date) (unknown) (unknown) 8.7 mg/dl (unkn own) (unknown) (no date) (unknown) (unknown) 98 mmol/l (unkn own) Result panel 931 (unknown) (no (unknown) (unknown) (no value) (units (unk nown) date) unknown) (unknown) (no (unknown) (unknown) 00:27 (units (unkno wn) date) unknown) (unknown) (no (unknown) (unknown) 00:30 00:30 (units (un known) date) unknown) (unknown) (no (unknown) (unknown) 08/21/22 00:26 (units (unknown) date) unknown) (unknown) (no (unknown) (unknown) 08/21/22 00:30 (units (unknown) date) unknown) (unknown) (no (unknown) (unknown) 08/21/22 (units (unkno wn) date) 08/21/22 unknown) Range/Units (unknown) (no (unknown) (unknown) 02/15/23 (units (unkno wn) date) unknown) (unknown) (no (unknown) (unknown) [id number] (units (unkno wn) date) unknown) (unknown) (no (unknown) (unknown) 10 mg PO QAM (units (u nknown) date) Qty: 45 1RF unknown) (unknown) (no (unknown) (unknown) 25 mg PO DAILY (units (unknown) date) Qty: 30 0RF unknown) (unknown) (no (unknown) (unknown) 40 mg PO QAM (units (u nknown) date) Qty: 30 0RF unknown) (unknown) (no (unknown) (unknown) Age/Sex: 76 / M (units (unknown) date) unknown) (unknown) (no (unknown) (unknown) Alcohol abuse (units ( unknown) date) unknown) (unknown) (no (unknown) (unknown) Alcohol type: (units ( unknown) date) beer, wine and unknown) hard liquor (unknown) (no (unknown) (unknown) Alcohol (units (unkno wn) date) withdrawal unknown) delirium (unknown) (no (unknown) (unknown) Alcohol (units (unkno wn) date) withdrawal unknown) (unknown) (no (unknown) (unknown) Allergies (units (unkn own) date) unknown) (unknown) (no (unknown) (unknown) Allergy/AdvReac (units (unknown) date) Type Severity unknown) Reaction Status Date / Time (unknown) (no (unknown) (unknown) Anemia, chronic (units (unknown) date) disease unknown) (unknown) (no (unknown) (unknown) Atrial (units (unkno wn) date) fibrillation unknown) (unknown) (no (unknown) (unknown) BPH w urinary (units ( unknown) date) obs/LUTS unknown) (unknown) (no (unknown) (unknown) BUN 17 (9-20) (units ( unknown) date) mg/dL unknown) (unknown) (no (unknown) (unknown) BUN/Creatinine (units (unknown) date) Ratio 14.2 (6-22) unknown) (unknown) (no (unknown) (unknown) Basic Metabolic (units (unknown) date) Panel Stat unknown) (unknown) (no (unknown) (unknown) Baso # (Auto) 0 (units (unknown) date) (0-100) /uL unknown) (unknown) (no (unknown) (unknown) Baso % (Auto) (units ( unknown) date) 0.8 (0-2) % unknown) (unknown) (no (unknown) (unknown) Blood Pressure (units (unknown) date) 94/64 08/21/22 unknown) 00:27 (unknown) (no (unknown) (unknown) Blood Pressure (units (unknown) date) unknown) (unknown) (no (unknown) (unknown) CT abdomen (units (unk nown) date) pelvis w con Stat unknown) (unknown) (no (unknown) (unknown) CT cervical (units (un known) date) spine wo con Stat unknown) (unknown) (no (unknown) (unknown) CT head/brain wo (units (unknown) date) con Stat unknown) (unknown) (no (unknown) (unknown) Calcium 8.7 (units (un known) date) (8.4-10.2) mg/dL unknown) (unknown) (no (unknown) (unknown) Carbon Dioxide (units (unknown) date) 23 (22-32) mmol/L unknown) (unknown) (no (unknown) (unknown) Cardiomyopathy (units (unknown) date) unknown) (unknown) (no (unknown) (unknown) Cardiovascular (units (unknown) date) unknown) (unknown) (no (unknown) (unknown) Cardiovascular: (units (unknown) date) Reports system unknown) reviewed and no additional complaints, except as (unknown) (no (unknown) (unknown) Chief complaint: (units (unknown) date) Fall unknown) (unknown) (no (unknown) (unknown) Chloride 98 (units (un known) date) (98-107) mmol/L unknown) (unknown) (no (unknown) (unknown) Complete Blood (units (unknown) date) Count AUTO DIFF unknown) Stat (unknown) (no (unknown) (unknown) Const (units (unkno wn) date) unknown) (unknown) (no (unknown) (unknown) Constitutional (units (unknown) date) unknown) (unknown) (no (unknown) (unknown) Constitutional: (units (unknown) date) Reports system unknown) reviewed and no additional complaints, except as (unknown) (no (unknown) (unknown) Course (units (unkno wn) date) unknown) (unknown) (no (unknown) (unknown) Creatinine 1.20 (units (unknown) date) (0.66-1.25) mg/dL unknown) (unknown) (no (unknown) (unknown) : 1945 (units (unknown) date) Acct:[id number] unknown) (unknown) (no (unknown) (unknown) Date of Service: (units (unknown) date) 08/21/22 unknown) (unknown) (no (unknown) (unknown) Departure (units (unkn own) date) unknown) (unknown) (no (unknown) (unknown) Discharge Plan (units (unknown) date) unknown) (unknown) (no (unknown) (unknown) Discontinued (units (u nknown) date) Medications unknown) (unknown) (no (unknown) (unknown) ED Orders (units (unkn own) date) unknown) (unknown) (no (unknown) (unknown) EKG-12 Lead Stat (units (unknown) date) unknown) (unknown) (no (unknown) (unknown) ENT (units (unkno wn) date) unknown) (unknown) (no (unknown) (unknown) ER Physician: (units ( unknown) date) Eleazar Ramos unknown) D.O. (unknown) (no (unknown) (unknown) Ears, Nose, (units (un known) date) Mouth, and unknown) Throat: Reports system reviewed and no additional (unknown) (no (unknown) (unknown) Emergency Report (units (unknown) date) unknown) (unknown) (no (unknown) (unknown) Eos # (Auto) 0 (units (unknown) date) (0-450) /uL unknown) (unknown) (no (unknown) (unknown) Eos % (Auto) 0.3 (units (unknown) date) L (2-4) % unknown) (unknown) (no (unknown) (unknown) Estimated GFR > (units (unknown) date) 60 (>60) mL/min unknown) (unknown) (no (unknown) (unknown) Ethanol (ETOH) (units (unknown) date) Stat unknown) (unknown) (no (unknown) (unknown) Ethyl Alcohol < (units (unknown) date) 10 ( - 10) mg/dL unknown) (unknown) (no (unknown) (unknown) Exam (units (unkno wn) date) unknown) (unknown) (no (unknown) (unknown) Family History (units (unknown) date) (Reviewed unknown) 12/25/21 @ 16:19 by Pop Delgado PA-C) (unknown) (no (unknown) (unknown) Former smoker (units ( unknown) date) unknown) (unknown) (no (unknown) (unknown) Jeannette Chaudhary, (units (unknown) date) MD [Primary Care unknown) Provider] (unknown) (no (unknown) (unknown) General (units (unkno wn) date) unknown) (unknown) (no (unknown) (unknown) General: (units (unkno wn) date) cooperative and unknown) No ill appearing (unknown) (no (unknown) (unknown) Glucose 116 H (units ( unknown) date) (80-110) mg/dL unknown) (unknown) (no (unknown) (unknown) Gout (units (unkno wn) date) unknown) (unknown) (no (unknown) (unknown) HPI - General (units ( unknown) date) Adult unknown) (unknown) (no (unknown) (unknown) HPI narrative: (units (unknown) date) unknown) (unknown) (no (unknown) (unknown) HTN (units (unkno wn) date) (hypertension) unknown) (unknown) (no (unknown) (unknown) Hct 32.2 L (units (unk nown) date) (41-53) % unknown) (unknown) (no (unknown) (unknown) Hematologic/Lymp (units (unknown) date) hatic unknown) (unknown) (no (unknown) (unknown) Hgb 11.2 L (units (unk nown) date) (13.5-17.5) g/dL unknown) (unknown) (no (unknown) (unknown) History of (units (unk nown) date) Present Illness unknown) (unknown) (no (unknown) (unknown) 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 (unknown) (no (unknown) (unknown) History of (units (unk nown) date) percutaneous unknown) endoscopic gastrostomy () (unknown) (no (unknown) (unknown) Initial Vital (units ( unknown) date) Signs unknown) (unknown) (no (unknown) (unknown) Initial Vital (units ( unknown) date) Signs: unknown) (unknown) (no (unknown) (unknown) Integumentary/Br (units (unknown) date) easts unknown) (unknown) (no (unknown) (unknown) [facility] (units (unknown) date) [address] unknown) [place] [address] (unknown) (no (unknown) (unknown) Lab Data (units (unkno wn) date) unknown) (unknown) (no (unknown) (unknown) Lab Results (units (un known) date) unknown) (unknown) (no (unknown) (unknown) Label Comments: (units (unknown) date) unknown) (unknown) (no (unknown) (unknown) Labs: (units (unkno wn) date) unknown) (unknown) (no (unknown) (unknown) Lidocaine HCl (units ( unknown) date) (Lidocaine 2% Inj unknown) Mdv 20ml) 20 ml INJ INTRA-OP ONE (unknown) (no (unknown) (unknown) Limitations: no (units (unknown) date) limitations unknown) (unknown) (no (unknown) (unknown) Lymph # (Auto) (units (unknown) date) 400 L (0379-2258) unknown) /uL (unknown) (no (unknown) (unknown) Lymph % (Auto) (units (unknown) date) 7.5 L (25-40) % unknown) (unknown) (no (unknown) (unknown) MCH 36.1 H (units (unk nown) date) (26-34) PG unknown) (unknown) (no (unknown) (unknown) MCHC 34.7 (units (unkn own) date) (30-36) % unknown) (unknown) (no (unknown) (unknown) MCV 104.0 H (units (un known) date) (80-100) fL unknown) (unknown) (no (unknown) (unknown) Medical Decision (units (unknown) date) Making unknown) (unknown) (no (unknown) (unknown) Medical History (units (unknown) date) (Reviewed unknown) 08/21/22 @ 01:34 by Eleazar Ramos DO) (unknown) (no (unknown) (unknown) Medication (units (unk nown) date) Instructions unknown) Recorded (unknown) (no (unknown) (unknown) Mixed (units (unkno wn) date) hyperlipidemia unknown) (unknown) (no (unknown) (unknown) Mode of arrival: (units (unknown) date) EMS unknown) (unknown) (no (unknown) (unknown) [place] # (Auto) (units ( unknown) date) 500 (0-900) /uL unknown) (unknown) (no (unknown) (unknown) [place] % (Auto) (units ( unknown) date) 8.2 (3-14) % unknown) (unknown) (no (unknown) (unknown) 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 unknown) (unknown) (no (unknown) (unknown) Neurologic (units (unk nown) date) unknown) (unknown) (no (unknown) (unknown) Neurologic: (units (un known) date) Reports system unknown) reviewed and no additional complaints, except as (unknown) (no (unknown) (unknown) Neut # (Auto) (units ( unknown) date) 4700 ([id number]) unknown) /uL (unknown) (no (unknown) (unknown) Neut % (Auto) (units ( unknown) date) 83.2 H (50-75) % unknown) (unknown) (no (unknown) (unknown) No Action (units (unkn own) date) unknown) (unknown) (no (unknown) (unknown) On (units (unkno wn) date) Anticoagulants: unknown) No (unknown) (no (unknown) (unknown) Ordered: (units (unkno wn) date) unknown) (unknown) (no (unknown) (unknown) Orders (units (unkno wn) date) unknown) (unknown) (no (unknown) (unknown) Oxygen Delivery (units (unknown) date) Method 08/21/22 unknown) 00:27 (unknown) (no (unknown) (unknown) Oxygen Delivery (units (unknown) date) Method Room Air unknown) (unknown) (no (unknown) (unknown) Patient History (units (unknown) date) unknown) (unknown) (no (unknown) (unknown) Patient is a (units (u nknown) date) 76-year-old male unknown) who is brought in by EMS for evaluation of (unknown) (no (unknown) (unknown) Patient: (units (unkno wn) date) Eleazar Charles unknown) MR#: [id number] (unknown) (no (unknown) (unknown) Plt Count 113 L (units (unknown) date) (150-400) X103/uL unknown) (unknown) (no (unknown) (unknown) Potassium 3.8 (units ( unknown) date) (3.4-5.1) mmol/L unknown) (unknown) (no (unknown) (unknown) Prescriptions: (units (unknown) date) unknown) (unknown) (no (unknown) (unknown) Previous Rx's (units ( unknown) date) unknown) (unknown) (no (unknown) (unknown) Pt reports (units (unk nown) date) taking every unknown) other day, at best. Also stated' only takes 2 pills, (unknown) (no (unknown) (unknown) Pulse Oximetry (units (unknown) date) 99 08/21/22 00:27 unknown) (unknown) (no (unknown) (unknown) Pulse Oximetry (units (unknown) date) 99 unknown) (unknown) (no (unknown) (unknown) Pulse Rate 103 H (units (unknown) date) 08/21/22 00:27 unknown) (unknown) (no (unknown) (unknown) Pulse Rate 103 H (units (unknown) date) unknown) (unknown) (no (unknown) (unknown) RBC 3.10 L (units (unk nown) date) (4.5-5.9) X106/uL unknown) (unknown) (no (unknown) (unknown) RDW 13.9 (units (unkno wn) date) (11.6-14.8) % unknown) (unknown) (no (unknown) (unknown) Referrals: (units (unk nown) date) unknown) (unknown) (no (unknown) (unknown) Related Data (units (u nknown) date) unknown) (unknown) (no (unknown) (unknown) Respiratory Rate (units (unknown) date) 18 08/21/22 00:27 unknown) (unknown) (no (unknown) (unknown) Respiratory Rate (units (unknown) date) 18 unknown) (unknown) (no (unknown) (unknown) Respiratory (units (un known) date) unknown) (unknown) (no (unknown) (unknown) Respiratory: (units (u nknown) date) Reports system unknown) reviewed and no additional complaints, except as (unknown) (no (unknown) (unknown) Review of (units (unkn own) date) Systems unknown) (unknown) (no (unknown) (unknown) Signed By: (units (unk nown) date) unknown) (unknown) (no (unknown) (unknown) Sister (units (unkno wn) date) Rheumatoid unknown) arthritis (unknown) (no (unknown) (unknown) Skin/Breast: (units (u nknown) date) Reports system unknown) reviewed and no additional complaints, except as (unknown) (no (unknown) (unknown) Smoking Status: (units (unknown) date) Former smoker unknown) (unknown) (no (unknown) (unknown) Social History (units (unknown) date) (Reviewed unknown) 08/21/22 @ 01:34 by Eleazar Ramos DO) (unknown) (no (unknown) (unknown) Sodium 135 L (units (u nknown) date) (137-145) mmol/L unknown) (unknown) (no (unknown) (unknown) Source: patient (units (unknown) date) and EMS unknown) (unknown) (no (unknown) (unknown) Stated (units (unkno wn) date) complaint: GLF unknown) hit head (unknown) (no (unknown) (unknown) Stop: 08/21/22 (units (unknown) date) 00:48 unknown) (unknown) (no (unknown) (unknown) Substance Use (units ( unknown) date) Type: does not unknown) use (unknown) (no (unknown) (unknown) Surgical History (units (unknown) date) (Reviewed unknown) 12/25/21 @ 16:19 by Pop Delgado PA-C) (unknown) (no (unknown) (unknown) Temperature 98.3 (units (unknown) date) F 08/21/22 00:27 unknown) (unknown) (no (unknown) (unknown) Temperature 98.3 (units (unknown) date) F unknown) (unknown) (no (unknown) (unknown) Time Seen by (units (u nknown) date) Provider: unknown) 08/21/22 00:18 (unknown) (no (unknown) (unknown) Vital Signs - 8 (units (unknown) date) hr unknown) (unknown) (no (unknown) (unknown) Vital Signs (units (un known) date) unknown) (unknown) (no (unknown) (unknown) Vital signs: (units (u nknown) date) unknown) (unknown) (no (unknown) (unknown) WBC 5.6 (units (unkno wn) date) (4.5-11.0) unknown) X103/uL (unknown) (no (unknown) (unknown) [Embedded Image (units (unknown) date) Not Available] unknown) (unknown) (no (unknown) (unknown) a cervical (units (unk nown) date) collar. unknown) (unknown) (no (unknown) (unknown) alcohol intake (units (unknown) date) frequency: 3 or unknown) more drinks per day (unknown) (no (unknown) (unknown) alcohol intake: (units (unknown) date) current unknown) (unknown) (no (unknown) (unknown) amoxicillin (units (un known) date) [AMOXICILLIN] unknown) Allergy Severe SWOLLEN JAW Verified 08/20/22 17:41 (unknown) (no (unknown) (unknown) clindamycin (units (un known) date) [CLINDAMYCIN] unknown) AdvReac Severe C-DIFF Verified 08/20/22 17:41 (unknown) (no (unknown) (unknown) complaints, (units (un known) date) except as unknown) documented (unknown) (no (unknown) (unknown) dementia and (units (u nknown) date) problems with unknown) memory. He is not on any anticoagulation. He (unknown) (no (unknown) (unknown) department (units (unk nown) date) earlier today for unknown) palpitations and issues with his atrial (unknown) (no (unknown) (unknown) documented (units (unk nown) date) unknown) (unknown) (no (unknown) (unknown) fibrillation. (units ( unknown) date) According to the unknown) note the patient does have a significant alcohol (unknown) (no (unknown) (unknown) furosemide 20 mg (units (unknown) date) tablet 10 mg PO unknown) QAM #45 tabs 12/15/21 (unknown) (no (unknown) (unknown) furosemide 20 mg (units (unknown) date) tablet unknown) (unknown) (no (unknown) (unknown) furosemide 40 mg (units (unknown) date) tablet (Lasix) 40 unknown) mg PO QAM #30 tabs 08/20/22 (unknown) (no (unknown) (unknown) furosemide (units (unk nown) date) [Lasix] 40 mg unknown) tablet (unknown) (no (unknown) (unknown) having (units (unkno wn) date) palpitations he unknown) just lost his balance. He was seen here in the emergency (unknown) (no (unknown) (unknown) household (units (unkn own) date) members: none unknown) (unknown) (no (unknown) (unknown) injuries that he (units (unknown) date) sustained where unknown) he states he lost his balance at home and fell (unknown) (no (unknown) (unknown) marital status: (units (unknown) date) unknown) (unknown) (no (unknown) (unknown) metoprolol (units (unk nown) date) succinate 25 mg unknown) 25 mg PO DAILY #30 tabs 10/30/21 (unknown) (no (unknown) (unknown) metoprolol (units (unk nown) date) succinate 25 mg unknown) tablet extended release 24 hr (unknown) (no (unknown) (unknown) occupational (units (u nknown) date) status: unknown) previously employed (unknown) (no (unknown) (unknown) over hit his (units (u nknown) date) head. There was unknown) no loss of consciousness. He states he was not (unknown) (no (unknown) (unknown) since it RX'd'. (units (unknown) date) unknown) (unknown) (no (unknown) (unknown) state that his (units (unknown) date) right side is unknown) hurting. Patient arrived not on a backboard not in (unknown) (no (unknown) (unknown) substance use (units ( unknown) date) type: does not unknown) use (unknown) (no (unknown) (unknown) sustained a cut (units (unknown) date) to his left ear. unknown) He reports no other injuries although does (unknown) (no (unknown) (unknown) tablet,extended (units (unknown) date) release 24 hr unknown) (unknown) (no (unknown) (unknown) use and also has (units (unknown) date) had balance unknown) issues and falls. There was also concern about Result panel 932 (unknown) (no (unknown) (unknown) (no value) (units (unk nown) date) unknown) (unknown) (no (unknown) (unknown) 00:27 (units (unkno wn) date) unknown) (unknown) (no (unknown) (unknown) 00:30 00:30 (units (un known) date) unknown) (unknown) (no (unknown) (unknown) 08/21/22 00:26 (units (unknown) date) unknown) (unknown) (no (unknown) (unknown) 08/21/22 00:30 (units (unknown) date) unknown) (unknown) (no (unknown) (unknown) 08/21/22 (units (unkno wn) date) 08/21/22 unknown) Range/Units (unknown) (no (unknown) (unknown) 08/21/22 (units (unkno wn) date) unknown) (unknown) (no (unknown) (unknown) [id number] (units (unkno wn) date) unknown) (unknown) (no (unknown) (unknown) 10 mg PO QAM (units (u nknown) date) Qty: 45 1RF unknown) (unknown) (no (unknown) (unknown) 25 mg PO DAILY (units (unknown) date) Qty: 30 0RF unknown) (unknown) (no (unknown) (unknown) 40 mg PO QAM (units (u nknown) date) Qty: 30 0RF unknown) (unknown) (no (unknown) (unknown) Age/Sex: 76 / M (units (unknown) date) unknown) (unknown) (no (unknown) (unknown) Alcohol abuse (units ( unknown) date) unknown) (unknown) (no (unknown) (unknown) Alcohol type: (units ( unknown) date) beer, wine and unknown) hard liquor (unknown) (no (unknown) (unknown) Alcohol (units (unkno wn) date) withdrawal unknown) delirium (unknown) (no (unknown) (unknown) Alcohol (units (unkno wn) date) withdrawal unknown) (unknown) (no (unknown) (unknown) Allergies (units (unkn own) date) unknown) (unknown) (no (unknown) (unknown) Allergy/AdvReac (units (unknown) date) Type Severity unknown) Reaction Status Date / Time (unknown) (no (unknown) (unknown) Anemia, chronic (units (unknown) date) disease unknown) (unknown) (no (unknown) (unknown) Atrial (units (unkno wn) date) fibrillation unknown) (unknown) (no (unknown) (unknown) Auscultation: (units ( unknown) date) clear to unknown) auscultation bilaterally (unknown) (no (unknown) (unknown) BPH w urinary (units ( unknown) date) obs/LUTS unknown) (unknown) (no (unknown) (unknown) BUN 17 (9-20) (units ( unknown) date) mg/dL unknown) (unknown) (no (unknown) (unknown) BUN/Creatinine (units (unknown) date) Ratio 14.2 (6-22) unknown) (unknown) (no (unknown) (unknown) Basic Metabolic (units (unknown) date) Panel Stat unknown) (unknown) (no (unknown) (unknown) Baso # (Auto) 0 (units (unknown) date) (0-100) /uL unknown) (unknown) (no (unknown) (unknown) Baso % (Auto) (units ( unknown) date) 0.8 (0-2) % unknown) (unknown) (no (unknown) (unknown) Blood Pressure (units (unknown) date) 9464 08/21/22 unknown) 00:27 (unknown) (no (unknown) (unknown) Blood Pressure (units (unknown) date) unknown) (unknown) (no (unknown) (unknown) CT abdomen (units (unk nown) date) pelvis w con Stat unknown) (unknown) (no (unknown) (unknown) CT cervical (units (un known) date) spine wo con Stat unknown) (unknown) (no (unknown) (unknown) CT head/brain wo (units (unknown) date) con Stat unknown) (unknown) (no (unknown) (unknown) Calcium 8.7 (units (un known) date) (8.4-10.2) mg/dL unknown) (unknown) (no (unknown) (unknown) Carbon Dioxide (units (unknown) date) 23 (22-32) mmol/L unknown) (unknown) (no (unknown) (unknown) Cardio (units (unkno wn) date) unknown) (unknown) (no (unknown) (unknown) Cardiomyopathy (units (unknown) date) unknown) (unknown) (no (unknown) (unknown) Cardiovascular (units (unknown) date) unknown) (unknown) (no (unknown) (unknown) Cardiovascular: (units (unknown) date) Reports system unknown) reviewed and no additional complaints, except as (unknown) (no (unknown) (unknown) Chief complaint: (units (unknown) date) Fall unknown) (unknown) (no (unknown) (unknown) Chloride 98 (units (un known) date) (98-107) mmol/L unknown) (unknown) (no (unknown) (unknown) Complete Blood (units (unknown) date) Count AUTO DIFF unknown) Stat (unknown) (no (unknown) (unknown) Const (units (unkno wn) date) unknown) (unknown) (no (unknown) (unknown) Constitutional (units (unknown) date) unknown) (unknown) (no (unknown) (unknown) Constitutional: (units (unknown) date) Reports system unknown) reviewed and no additional complaints, except as (unknown) (no (unknown) (unknown) Course (units (unkno wn) date) unknown) (unknown) (no (unknown) (unknown) Creatinine 1.20 (units (unknown) date) (0.66-1.25) mg/dL unknown) (unknown) (no (unknown) (unknown) : 1945 (units (unknown) date) Acct:[id number] unknown) (unknown) (no (unknown) (unknown) Date of Service: (units (unknown) date) 08/21/22 unknown) (unknown) (no (unknown) (unknown) Departure (units (unkn own) date) unknown) (unknown) (no (unknown) (unknown) Discharge Plan (units (unknown) date) unknown) (unknown) (no (unknown) (unknown) Discontinued (units (u nknown) date) Medications unknown) (unknown) (no (unknown) (unknown) ED Orders (units (unkn own) date) unknown) (unknown) (no (unknown) (unknown) EKG-12 Lead Stat (units (unknown) date) unknown) (unknown) (no (unknown) (unknown) ENT (units (unkno wn) date) unknown) (unknown) (no (unknown) (unknown) ER Physician: (units ( unknown) date) Eleazar Ramos unknown) D.O. (unknown) (no (unknown) (unknown) Ears, Nose, (units (un known) date) Mouth, and unknown) Throat: Reports system reviewed and no additional (unknown) (no (unknown) (unknown) Effort + (units (unkno wn) date) Inspection: unknown) normal respiratory effort (unknown) (no (unknown) (unknown) Emergency Report (units (unknown) date) unknown) (unknown) (no (unknown) (unknown) Eos # (Auto) 0 (units (unknown) date) (0-450) /uL unknown) (unknown) (no (unknown) (unknown) Eos % (Auto) 0.3 (units (unknown) date) L (2-4) % unknown) (unknown) (no (unknown) (unknown) Estimated GFR > (units (unknown) date) 60 (>60) mL/min unknown) (unknown) (no (unknown) (unknown) Ethanol (ETOH) (units (unknown) date) Stat unknown) (unknown) (no (unknown) (unknown) Ethyl Alcohol < (units (unknown) date) 10 ( - 10) mg/dL unknown) (unknown) (no (unknown) (unknown) Exam (units (unkno wn) date) unknown) (unknown) (no (unknown) (unknown) Family History (units (unknown) date) (Reviewed unknown) 12/25/21 @ 16:19 by Pop Delgado PA-C) (unknown) (no (unknown) (unknown) Former smoker (units ( unknown) date) unknown) (unknown) (no (unknown) (unknown) Jeannette Chaudhary, (units (unknown) date) MD [Primary Care unknown) Provider] (unknown) (no (unknown) (unknown) General (units (unkno wn) date) unknown) (unknown) (no (unknown) (unknown) General: (units (unkno wn) date) cooperative and unknown) No ill appearing (unknown) (no (unknown) (unknown) General: patient (units (unknown) date) alert, patient unknown) awake and oriented (Person and place and year) (unknown) (no (unknown) (unknown) Glucose 116 H (units ( unknown) date) (80-110) mg/dL unknown) (unknown) (no (unknown) (unknown) Gout (units (unkno wn) date) unknown) (unknown) (no (unknown) (unknown) HPI - General (units ( unknown) date) Adult unknown) (unknown) (no (unknown) (unknown) HPI narrative: (units (unknown) date) unknown) (unknown) (no (unknown) (unknown) HTN (units (unkno wn) date) (hypertension) unknown) (unknown) (no (unknown) (unknown) Hct 32.2 L (units (unk nown) date) (41-53) % unknown) (unknown) (no (unknown) (unknown) Hematologic/Lymp (units (unknown) date) hatic unknown) (unknown) (no (unknown) (unknown) Hgb 11.2 L (units (unk nown) date) (13.5-17.5) g/dL unknown) (unknown) (no (unknown) (unknown) History of (units (unk nown) date) Present Illness unknown) (unknown) (no (unknown) (unknown) 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 (unknown) (no (unknown) (unknown) History of (units (unk nown) date) percutaneous unknown) endoscopic gastrostomy () (unknown) (no (unknown) (unknown) Initial Vital (units ( unknown) date) Signs unknown) (unknown) (no (unknown) (unknown) Initial Vital (units ( unknown) date) Signs: unknown) (unknown) (no (unknown) (unknown) Integumentary/Br (units (unknown) date) easts unknown) (unknown) (no (unknown) (unknown) [facility] (units (unknown) date) [address] unknown) [place] [address] (unknown) (no (unknown) (unknown) Lab Data (units (unkno wn) date) unknown) (unknown) (no (unknown) (unknown) Lab Results (units (un known) date) unknown) (unknown) (no (unknown) (unknown) Label Comments: (units (unknown) date) unknown) (unknown) (no (unknown) (unknown) Labs: (units (unkno wn) date) unknown) (unknown) (no (unknown) (unknown) Lidocaine HCl (units ( unknown) date) (Lidocaine 2% Inj unknown) Mdv 20ml) 20 ml INJ INTRA-OP ONE (unknown) (no (unknown) (unknown) Limitations: no (units (unknown) date) limitations unknown) (unknown) (no (unknown) (unknown) Lymph # (Auto) (units (unknown) date) 400 L (7539-4537) unknown) /uL (unknown) (no (unknown) (unknown) Lymph % (Auto) (units (unknown) date) 7.5 L (25-40) % unknown) (unknown) (no (unknown) (unknown) MCH 36.1 H (units (unk nown) date) (26-34) PG unknown) (unknown) (no (unknown) (unknown) MCHC 34.7 (units (unkn own) date) (30-36) % unknown) (unknown) (no (unknown) (unknown) MCV 104.0 H (units (un known) date) (80-100) fL unknown) (unknown) (no (unknown) (unknown) Medical Decision (units (unknown) date) Making unknown) (unknown) (no (unknown) (unknown) Medical History (units (unknown) date) (Reviewed unknown) 08/21/22 @ 01:34 by Eleazar Ramos DO) (unknown) (no (unknown) (unknown) Medication (units (unk nown) date) Instructions unknown) Recorded (unknown) (no (unknown) (unknown) Mixed (units (unkno wn) date) hyperlipidemia unknown) (unknown) (no (unknown) (unknown) Mode of arrival: (units (unknown) date) EMS unknown) (unknown) (no (unknown) (unknown) [place] # (Auto) (units ( unknown) date) 500 (0-900) /uL unknown) (unknown) (no (unknown) (unknown) [place] % (Auto) (units ( unknown) date) 8.2 (3-14) % unknown) (unknown) (no (unknown) (unknown) 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 unknown) (unknown) (no (unknown) (unknown) Neuro (units (unkno wn) date) unknown) (unknown) (no (unknown) (unknown) Neurologic (units (unk nown) date) unknown) (unknown) (no (unknown) (unknown) Neurologic: (units (un known) date) Reports system unknown) reviewed and no additional complaints, except as (unknown) (no (unknown) (unknown) Neut # (Auto) (units ( unknown) date) 4700 (5217-8495) unknown) /uL (unknown) (no (unknown) (unknown) Neut % (Auto) (units ( unknown) date) 83.2 H (50-75) % unknown) (unknown) (no (unknown) (unknown) No Action (units (unkn own) date) unknown) (unknown) (no (unknown) (unknown) On (units (unkno wn) date) Anticoagulants: unknown) No (unknown) (no (unknown) (unknown) Ordered: (units (unkno wn) date) unknown) (unknown) (no (unknown) (unknown) Orders (units (unkno wn) date) unknown) (unknown) (no (unknown) (unknown) Oxygen Delivery (units (unknown) date) Method 08/21/22 unknown) 00:27 (unknown) (no (unknown) (unknown) Oxygen Delivery (units (unknown) date) Method Room Air unknown) (unknown) (no (unknown) (unknown) Patient History (units (unknown) date) unknown) (unknown) (no (unknown) (unknown) Patient is a (units (u nknown) date) 76-year-old male unknown) who is brought in by EMS for evaluation of (unknown) (no (unknown) (unknown) Patient: (units (unkno wn) date) Eleazar Charles Chandrika unknown) MR#: [id number] (unknown) (no (unknown) (unknown) Plt Count 113 L (units (unknown) date) (150-400) X103/uL unknown) (unknown) (no (unknown) (unknown) Potassium 3.8 (units ( unknown) date) (3.4-5.1) mmol/L unknown) (unknown) (no (unknown) (unknown) Prescriptions: (units (unknown) date) unknown) (unknown) (no (unknown) (unknown) Previous Rx's (units ( unknown) date) unknown) (unknown) (no (unknown) (unknown) Pt reports (units (unk nown) date) taking every unknown) other day, at best. Also stated' only takes 2 pills, (unknown) (no (unknown) (unknown) Pulse Oximetry (units (unknown) date) 99 08/21/22 00:27 unknown) (unknown) (no (unknown) (unknown) Pulse Oximetry (units (unknown) date) 99 unknown) (unknown) (no (unknown) (unknown) Pulse Rate 103 H (units (unknown) date) 08/21/22 00:27 unknown) (unknown) (no (unknown) (unknown) Pulse Rate 103 H (units (unknown) date) unknown) (unknown) (no (unknown) (unknown) RBC 3.10 L (units (unk nown) date) (4.5-5.9) X106/uL unknown) (unknown) (no (unknown) (unknown) RDW 13.9 (units (unkno wn) date) (11.6-14.8) % unknown) (unknown) (no (unknown) (unknown) Rate: regular (units ( unknown) date) rate unknown) (unknown) (no (unknown) (unknown) Referrals: (units (unk nown) date) unknown) (unknown) (no (unknown) (unknown) Related Data (units (u nknown) date) unknown) (unknown) (no (unknown) (unknown) Resp (units (unkno wn) date) unknown) (unknown) (no (unknown) (unknown) Respiratory Rate (units (unknown) date) 18 08/21/22 00:27 unknown) (unknown) (no (unknown) (unknown) Respiratory Rate (units (unknown) date) 18 unknown) (unknown) (no (unknown) (unknown) Respiratory (units (un known) date) unknown) (unknown) (no (unknown) (unknown) Respiratory: (units (u nknown) date) Reports system unknown) reviewed and no additional complaints, except as (unknown) (no (unknown) (unknown) Review of (units (unkn own) date) Systems unknown) (unknown) (no (unknown) (unknown) Rhythm: regular (units (unknown) date) rhythm unknown) (unknown) (no (unknown) (unknown) Signed By: (units (unk nown) date) unknown) (unknown) (no (unknown) (unknown) Sister (units (unkno wn) date) Rheumatoid unknown) arthritis (unknown) (no (unknown) (unknown) Skin/Breast: (units (u nknown) date) Reports system unknown) reviewed and no additional complaints, except as (unknown) (no (unknown) (unknown) Smoking Status: (units (unknown) date) Former smoker unknown) (unknown) (no (unknown) (unknown) Social History (units (unknown) date) (Reviewed unknown) 08/21/22 @ 01:34 by Eleazar Ramos DO) (unknown) (no (unknown) (unknown) Sodium 135 L (units (u nknown) date) (137-145) mmol/L unknown) (unknown) (no (unknown) (unknown) Source: patient (units (unknown) date) and EMS unknown) (unknown) (no (unknown) (unknown) Speech: speech (units (unknown) date) normal unknown) (unknown) (no (unknown) (unknown) Stated (units (unkno wn) date) complaint: GLF unknown) hit head (unknown) (no (unknown) (unknown) Stop: 08/21/22 (units (unknown) date) 00:48 unknown) (unknown) (no (unknown) (unknown) Substance Use (units ( unknown) date) Type: does not unknown) use (unknown) (no (unknown) (unknown) Surgical History (units (unknown) date) (Reviewed unknown) 12/25/21 @ 16:19 by Pop Delgado PA-C) (unknown) (no (unknown) (unknown) Temperature 98.3 (units (unknown) date) F 08/21/22 00:27 unknown) (unknown) (no (unknown) (unknown) Temperature 98.3 (units (unknown) date) F unknown) (unknown) (no (unknown) (unknown) Time Seen by (units (u nknown) date) Provider: unknown) 08/21/22 00:18 (unknown) (no (unknown) (unknown) Vital Signs - 8 (units (unknown) date) hr unknown) (unknown) (no (unknown) (unknown) Vital Signs (units (un known) date) unknown) (unknown) (no (unknown) (unknown) Vital signs: (units (u nknown) date) unknown) (unknown) (no (unknown) (unknown) WBC 5.6 (units (unkno wn) date) (4.5-11.0) unknown) X103/uL (unknown) (no (unknown) (unknown) [Embedded Image (units (unknown) date) Not Available] unknown) (unknown) (no (unknown) (unknown) a cervical (units (unk nown) date) collar. unknown) (unknown) (no (unknown) (unknown) alcohol intake (units (unknown) date) frequency: 3 or unknown) more drinks per day (unknown) (no (unknown) (unknown) alcohol intake: (units (unknown) date) current unknown) (unknown) (no (unknown) (unknown) amoxicillin (units (un known) date) [AMOXICILLIN] unknown) Allergy Severe SWOLLEN JAW Verified 08/20/22 17:41 (unknown) (no (unknown) (unknown) clindamycin (units (un known) date) [CLINDAMYCIN] unknown) AdvReac Severe C-DIFF Verified 08/20/22 17:41 (unknown) (no (unknown) (unknown) complaints, (units (un known) date) except as unknown) documented (unknown) (no (unknown) (unknown) dementia and (units (u nknown) date) problems with unknown) memory. He is not on any anticoagulation. He (unknown) (no (unknown) (unknown) department (units (unk nown) date) earlier today for unknown) palpitations and issues with his atrial (unknown) (no (unknown) (unknown) documented (units (unk nown) date) unknown) (unknown) (no (unknown) (unknown) fibrillation. (units ( unknown) date) According to the unknown) note the patient does have a significant alcohol (unknown) (no (unknown) (unknown) furosemide 20 mg (units (unknown) date) tablet 10 mg PO unknown) QAM #45 tabs 12/15/21 (unknown) (no (unknown) (unknown) furosemide 20 mg (units (unknown) date) tablet unknown) (unknown) (no (unknown) (unknown) furosemide 40 mg (units (unknown) date) tablet (Lasix) 40 unknown) mg PO QAM #30 tabs 08/20/22 (unknown) (no (unknown) (unknown) furosemide (units (unk nown) date) [Lasix] 40 mg unknown) tablet (unknown) (no (unknown) (unknown) having (units (unkno wn) date) palpitations he unknown) just lost his balance. He was seen here in the emergency (unknown) (no (unknown) (unknown) household (units (unkn own) date) members: none unknown) (unknown) (no (unknown) (unknown) injuries that he (units (unknown) date) sustained where unknown) he states he lost his balance at home and fell (unknown) (no (unknown) (unknown) marital status: (units (unknown) date) unknown) (unknown) (no (unknown) (unknown) metoprolol (units (unk nown) date) succinate 25 mg unknown) 25 mg PO DAILY #30 tabs 10/30/21 (unknown) (no (unknown) (unknown) metoprolol (units (unk nown) date) succinate 25 mg unknown) tablet extended release 24 hr (unknown) (no (unknown) (unknown) occupational (units (u nknown) date) status: unknown) previously employed (unknown) (no (unknown) (unknown) over hit his (units (u nknown) date) head. There was unknown) no loss of consciousness. He states he was not (unknown) (no (unknown) (unknown) since it RX'd'. (units (unknown) date) unknown) (unknown) (no (unknown) (unknown) state that his (units (unknown) date) right side is unknown) hurting. Patient arrived not on a backboard not in (unknown) (no (unknown) (unknown) substance use (units ( unknown) date) type: does not unknown) use (unknown) (no (unknown) (unknown) sustained a cut (units (unknown) date) to his left ear. unknown) He reports no other injuries although does (unknown) (no (unknown) (unknown) tablet,extended (units (unknown) date) release 24 hr unknown) (unknown) (no (unknown) (unknown) use and also has (units (unknown) date) had balance unknown) issues and falls. There was also concern about Result panel 933 (unknown) (no (unknown) (unknown) (no value) (units (unk nown) date) unknown) (unknown) (no (unknown) (unknown) (Cipro) (units (unkno wn) date) unknown) (unknown) (no (unknown) (unknown) 00:27 08/21/22 (units (unknown) date) unknown) (unknown) (no (unknown) (unknown) 00:30 00:30 (units (un known) date) unknown) (unknown) (no (unknown) (unknown) 08/21/22 00:26 (units (unknown) date) unknown) (unknown) (no (unknown) (unknown) 08/21/22 00:30 (units (unknown) date) unknown) (unknown) (no (unknown) (unknown) 08/21/22 08/21/22 (units (unknown) date) Range/Units unknown) (unknown) (no (unknown) (unknown) 08/21/22 (units (unkno wn) date) unknown) (unknown) (no (unknown) (unknown) [id number] (units (unkno wn) date) unknown) (unknown) (no (unknown) (unknown) 03:07 (units (unkno wn) date) unknown) (unknown) (no (unknown) (unknown) 1. No new (units (unkn own) date) fractures. unknown) (unknown) (no (unknown) (unknown) 1. Possibly acute (units (unknown) date) nondisplaced right unknown) posterior 11th rib fracture.? (unknown) (no (unknown) (unknown) 10 mg PO QAM Qty: (units (unknown) date) 45 1RF unknown) (unknown) (no (unknown) (unknown) [address] (units (unknown) date) unknown) (unknown) (no (unknown) (unknown) 18:21. (units (unkno wn) date) unknown) (unknown) (no (unknown) (unknown) 2. Chronic (units (unk nown) date) degenerative and unknown) remote posttraumatic changes as described.? (unknown) (no (unknown) (unknown) 2. Moderate to (units (unknown) date) severe hepatic unknown) steatosis. (unknown) (no (unknown) (unknown) 25 mg PO DAILY (units (unknown) date) Qty: 30 0RF unknown) (unknown) (no (unknown) (unknown) 250 mg PO BID 5 (units (unknown) date) Days Qty: 10 0RF unknown) (unknown) (no (unknown) (unknown) 3. Normal right (units (unknown) date) kidney without unknown) laceration. (unknown) (no (unknown) (unknown) 4. Several (units (unk nown) date) chronic appearing unknown) and stable vertebral body compression fractures.? (unknown) (no (unknown) (unknown) 40 mg PO QAM Qty: (units (unknown) date) 30 0RF unknown) (unknown) (no (unknown) (unknown) 11/19/2021, (units (unk nown) date) 19:57.? [place] unknown) [facility], CT, CT ANGIO CHEST PE PROTOCOL, 06/30/2022, (unknown) (no (unknown) (unknown) ? (units (unkno wn) date) unknown) (unknown) (no (unknown) (unknown) ABDOMEN: (units (unkno wn) date) unknown) (unknown) (no (unknown) (unknown) Abdominal Nodes:? (units (unknown) date) No retroperitoneal unknown) or mesenteric adenopathy by size criteria.? (unknown) (no (unknown) (unknown) Accession Number: (units (unknown) date) [id number] ?? unknown) (unknown) (no (unknown) (unknown) Accession Number: (units (unknown) date) [id number] ?? unknown) (unknown) (no (unknown) (unknown) Acct:[id number] (units (unknown) date) unknown) (unknown) (no (unknown) (unknown) Activity (units (unkno wn) date) Restrictions/Addit unknown) ional Instructions: (unknown) (no (unknown) (unknown) Adrenal Glands:? (units (unknown) date) No nodules. unknown) (unknown) (no (unknown) (unknown) After the (units (unkn own) date) administration of unknown) intravenous contrast, axial sections acquired from (unknown) (no (unknown) (unknown) Age/Sex: 76 / M (units (unknown) date) unknown) (unknown) (no (unknown) (unknown) Alcohol abuse (units ( unknown) date) unknown) (unknown) (no (unknown) (unknown) Alcohol type: (units ( unknown) date) beer, wine and unknown) hard liquor (unknown) (no (unknown) (unknown) Alcohol (units (unkno wn) date) withdrawal unknown) delirium (unknown) (no (unknown) (unknown) Alcohol (units (unkno wn) date) withdrawal unknown) (unknown) (no (unknown) (unknown) Allergies (units (unkn own) date) unknown) (unknown) (no (unknown) (unknown) Allergy/AdvReac (units (unknown) date) Type Severity unknown) Reaction Status Date / Time (unknown) (no (unknown) (unknown) [place], [place] (units ( unknown) date) [id number] unknown) (unknown) (no (unknown) (unknown) Anemia, chronic (units (unknown) date) disease unknown) (unknown) (no (unknown) (unknown) Appendix not (units (u nknown) date) unknown) (unknown) (no (unknown) (unknown) Approved by: (units (u nknown) date) Kenisha Milian unknown) Joanna on 08/21/2022 at 1:45? (unknown) (no (unknown) (unknown) Approved by: (units (u nknown) date) Kenisha Milian unknown) Joanna on 08/21/2022 at 1:56?? (unknown) (no (unknown) (unknown) Atrial (units (unkno wn) date) fibrillation unknown) (unknown) (no (unknown) (unknown) Auscultation: (units ( unknown) date) clear to unknown) auscultation bilaterally (unknown) (no (unknown) (unknown) BPH w urinary (units ( unknown) date) obs/LUTS unknown) (unknown) (no (unknown) (unknown) BUN 17 (9-20) (units ( unknown) date) mg/dL unknown) (unknown) (no (unknown) (unknown) BUN/Creatinine (units (unknown) date) Ratio 14.2 (6-22) unknown) (unknown) (no (unknown) (unknown) Back/Spine/Pelvis (units (unknown) date) unknown) (unknown) (no (unknown) (unknown) Back: CVA (units (unkn own) date) tenderness right unknown) (unknown) (no (unknown) (unknown) Basic Metabolic (units (unknown) date) Panel Stat unknown) (unknown) (no (unknown) (unknown) Baso # (Auto) 0 (units (unknown) date) (0-100) /uL unknown) (unknown) (no (unknown) (unknown) Baso % (Auto) 0.8 (units (unknown) date) (0-2) % unknown) (unknown) (no (unknown) (unknown) Because of the (units ( unknown) date) location and the unknown) extent of the cut to your left ear we do need to (unknown) (no (unknown) (unknown) Bilateral upper (units (unknown) date) extremities unknown) unremarkable. Pelvis is stable. (unknown) (no (unknown) (unknown) Biliary ducts:? (units (unknown) date) Nondilated unknown) (unknown) (no (unknown) (unknown) Bladder:? Normal. (units (unknown) date) unknown) (unknown) (no (unknown) (unknown) Blood Pressure (units (unknown) date) 94/64 08/21/22 unknown) 00:27 (unknown) (no (unknown) (unknown) Blood Pressure (units (unknown) date) /64 113/76 unknown) (unknown) (no (unknown) (unknown) Bones:? (units (unkno wn) date) Nondisplaced right unknown) posterior 11th rib fracture.? Probably acute.? Minor (unknown) (no (unknown) (unknown) Bones:? There is (units (unknown) date) degenerative unknown) anterior height loss of C7.? Mild to moderate (unknown) (no (unknown) (unknown) COMPARISON:? (units (u nknown) date) [facility], unknown) CT, CT CERVICAL SPINE WO CON, 08/20/2022, 18:43. (unknown) (no (unknown) (unknown) COMPARISON:? (units (u nknown) date) [facility] unknown) Hospital, CT, CT CHEST ABDOMEN PELVIS WITH CONTRAST, (unknown) (no (unknown) (unknown) CT - cervical (units ( unknown) date) spine: unknown) (unknown) (no (unknown) (unknown) CT Scan Report (units (unknown) date) unknown) (unknown) (no (unknown) (unknown) CT abdomen pelvis (units (unknown) date) w con Stat unknown) (unknown) (no (unknown) (unknown) CT cervical spine (units (unknown) date) wo con Stat unknown) (unknown) (no (unknown) (unknown) CT head/brain wo (units (unknown) date) con Stat unknown) (unknown) (no (unknown) (unknown) CT scan - (units (unkn own) date) abdomen/pelvis: unknown) (unknown) (no (unknown) (unknown) Calcium 8.7 (units (un known) date) (8.4-10.2) mg/dL unknown) (unknown) (no (unknown) (unknown) Carbon Dioxide 23 (units (unknown) date) (22-32) mmol/L unknown) (unknown) (no (unknown) (unknown) Cardio (units (unkno wn) date) unknown) (unknown) (no (unknown) (unknown) Cardiomyopathy (units (unknown) date) unknown) (unknown) (no (unknown) (unknown) Cardiovascular (units (unknown) date) unknown) (unknown) (no (unknown) (unknown) Cardiovascular: (units (unknown) date) Reports system unknown) reviewed and no additional complaints, except as (unknown) (no (unknown) (unknown) Chest (units (unkno wn) date) unknown) (unknown) (no (unknown) (unknown) Chief complaint: (units (unknown) date) Fall unknown) (unknown) (no (unknown) (unknown) Chloride 98 (units (un known) date) (98-107) mmol/L unknown) (unknown) (no (unknown) (unknown) Ciprofloxacin (units ( unknown) date) (Ciprofloxacin 250 unknown) Mg Tablet) 250 mg PO NOW ONE (unknown) (no (unknown) (unknown) Clinical (units (unkno wn) date) Impression: unknown) (unknown) (no (unknown) (unknown) Complete Blood (units (unknown) date) Count AUTO DIFF unknown) Stat (unknown) (no (unknown) (unknown) Const (units (unkno wn) date) unknown) (unknown) (no (unknown) (unknown) Constitutional (units (unknown) date) unknown) (unknown) (no (unknown) (unknown) Constitutional: (units (unknown) date) Reports system unknown) reviewed and no additional complaints, except as (unknown) (no (unknown) (unknown) Course (units (unkno wn) date) unknown) (unknown) (no (unknown) (unknown) Creatinine 1.20 (units (unknown) date) (0.66-1.25) mg/dL unknown) (unknown) (no (unknown) (unknown) : 1945 (units (unknown) date) Acct:[id number] unknown) (unknown) (no (unknown) (unknown) : 1945 (units (unknown) date) unknown) (unknown) (no (unknown) (unknown) Date of Service: (units (unknown) date) 08/21/22 unknown) (unknown) (no (unknown) (unknown) Departure (units (unkn own) date) unknown) (unknown) (no (unknown) (unknown) Dictated by: (units (u nknown) date) dariusz Le) Joanna on 08/21/2022 at 1:41 ? ? (unknown) (no (unknown) (unknown) Dictated by: (units (u nknown) date) dariusz eL) Joanna on 08/21/2022 at 1:45 ? ? (unknown) (no (unknown) (unknown) Discharge Plan (units (unknown) date) unknown) (unknown) (no (unknown) (unknown) Discontinued (units (u nknown) date) Medications unknown) (unknown) (no (unknown) (unknown) Documented By: SACHIN (units (unknown) date) unknown) (unknown) (no (unknown) (unknown) ED Orders (units (unkn own) date) unknown) (unknown) (no (unknown) (unknown) EKG-12 Lead Stat (units (unknown) date) unknown) (unknown) (no (unknown) (unknown) ENT (units (unkno wn) date) unknown) (unknown) (no (unknown) (unknown) ER Physician: (units ( unknown) date) Eleazar Ramos unknown) D.O. (unknown) (no (unknown) (unknown) Ears, Nose, (units (un known) date) Mouth, and Throat: unknown) Reports system reviewed and no additional (unknown) (no (unknown) (unknown) Effort + (units (unkno wn) date) Inspection: normal unknown) respiratory effort (unknown) (no (unknown) (unknown) Emergency Report (units (unknown) date) unknown) (unknown) (no (unknown) (unknown) Eos # (Auto) 0 (units (unknown) date) (0-450) /uL unknown) (unknown) (no (unknown) (unknown) Eos % (Auto) 0.3 (units (unknown) date) L (2-4) % unknown) (unknown) (no (unknown) (unknown) Estimated GFR > (units (unknown) date) 60 (>60) mL/min unknown) (unknown) (no (unknown) (unknown) Ethanol (ETOH) (units (unknown) date) Stat unknown) (unknown) (no (unknown) (unknown) Ethyl Alcohol < (units (unknown) date) 10 ( - 10) mg/dL unknown) (unknown) (no (unknown) (unknown) Exam (units (unkno wn) date) unknown) (unknown) (no (unknown) (unknown) Extrem (units (unkno wn) date) unknown) (unknown) (no (unknown) (unknown) FINDINGS:? (units (unk nown) date) unknown) (unknown) (no (unknown) (unknown) Family History (units (unknown) date) (Reviewed 12/25/21 unknown) @ 16:19 by Pop Delgado PA-C) (unknown) (no (unknown) (unknown) For (units (unkno wn) date) unknown) (unknown) (no (unknown) (unknown) Former smoker (units ( unknown) date) unknown) (unknown) (no (unknown) (unknown) GI (units (unkno wn) date) unknown) (unknown) (no (unknown) (unknown) Gallbladder:? (units ( unknown) date) Decompressed unknown) (unknown) (no (unknown) (unknown) Jeannette Chaudhary, (units (unknown) date) MD [Primary Care unknown) Provider] (unknown) (no (unknown) (unknown) General (units (unkno wn) date) unknown) (unknown) (no (unknown) (unknown) General: (units (unkno wn) date) cooperative and No unknown) ill appearing (unknown) (no (unknown) (unknown) General: patient (units (unknown) date) alert, patient unknown) awake and oriented (Person and place and year) (unknown) (no (unknown) (unknown) Glucose 116 H (units ( unknown) date) (80-110) mg/dL unknown) (unknown) (no (unknown) (unknown) Gout (units (unkno wn) date) unknown) (unknown) (no (unknown) (unknown) HENMT Other: (units (u nknown) date) Patient has a very unknown) complex laceration to the left ear. It does (unknown) (no (unknown) (unknown) HENMT (units (unkno wn) date) unknown) (unknown) (no (unknown) (unknown) HPI - General (units ( unknown) date) Adult unknown) (unknown) (no (unknown) (unknown) HPI narrative: (units (unknown) date) unknown) (unknown) (no (unknown) (unknown) HTN (units (unkno wn) date) (hypertension) unknown) (unknown) (no (unknown) (unknown) Michele Rey MD (units (unknown) date) [Physician] unknown) (unknown) (no (unknown) (unknown) Hct 32.2 L (units (unk nown) date) (41-53) % unknown) (unknown) (no (unknown) (unknown) Heart:? Moderate (units (unknown) date) cardiomegaly. unknown) (unknown) (no (unknown) (unknown) Hematologic/Lymph (units (unknown) date) atic unknown) (unknown) (no (unknown) (unknown) Hgb 11.2 L (units (unk nown) date) (13.5-17.5) g/dL unknown) (unknown) (no (unknown) (unknown) History of (units (unk nown) date) Present Illness unknown) (unknown) (no (unknown) (unknown) 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 (unknown) (no (unknown) (unknown) History of (units (unk nown) date) percutaneous unknown) endoscopic gastrostomy (-2019) (unknown) (no (unknown) (unknown) IMPRESSION:? (units (u nknown) date) unknown) (unknown) (no (unknown) (unknown) INDICATIONS:? (units ( unknown) date) Fall, right-sided unknown) paraspinal cervical pain (unknown) (no (unknown) (unknown) INDICATIONS:? (units ( unknown) date) Right side flank unknown) pain after fall (unknown) (no (unknown) (unknown) Image quality:? (units (unknown) date) Excellent.? unknown) (unknown) (no (unknown) (unknown) Imaging Data (units (u nknown) date) unknown) (unknown) (no (unknown) (unknown) Initial Vital (units ( unknown) date) Signs unknown) (unknown) (no (unknown) (unknown) Initial Vital (units ( unknown) date) Signs: unknown) (unknown) (no (unknown) (unknown) Instructions: DI (units (unknown) date) for Rib Fracture, unknown) How to Prevent Falls (unknown) (no (unknown) (unknown) Integumentary/Arpita (units (unknown) date) asts unknown) (unknown) (no (unknown) (unknown) [facility] (units (unknown) date) [address] unknown) [place] [address] (unknown) (no (unknown) (unknown) [facility] (units (unknown) date) unknown) (unknown) (no (unknown) (unknown) Kidneys and (units (un known) date) Ureters:? unknown) Symmetric enhancement.? No nephrolithiasis or (unknown) (no (unknown) (unknown) Lab Data (units (unkno wn) date) unknown) (unknown) (no (unknown) (unknown) Lab Results (units (un known) date) unknown) (unknown) (no (unknown) (unknown) Lab results (units (un known) date) reviewed: Yes I unknown) reviewed the patient's lab results. (unknown) (no (unknown) (unknown) Label Comments: (units (unknown) date) unknown) (unknown) (no (unknown) (unknown) Labs: (units (unkno wn) date) unknown) (unknown) (no (unknown) (unknown) Laceration of (units ( unknown) date) ear, Fracture of unknown) rib, Fall (unknown) (no (unknown) (unknown) Last Admin: (units (un known) date) 08/21/22 01:44 unknown) Dose: Not Given (unknown) (no (unknown) (unknown) Last Admin: (units (un known) date) 08/21/22 01:51 unknown) Dose: Not Given (unknown) (no (unknown) (unknown) Last Admin: (units (un known) date) 08/21/22 03:00 unknown) Dose: 250 mg (unknown) (no (unknown) (unknown) Lidocaine HCl (units ( unknown) date) (Lidocaine 2% Inj unknown) Mdv 20ml) 20 ml INJ INTRA-OP ONE (unknown) (no (unknown) (unknown) Lidocaine HCl (units ( unknown) date) (Lidocaine 2% Inj unknown) Sdv 5ml) 5 ml INJ INTRA-OP ONE (unknown) (no (unknown) (unknown) Limitations: no (units (unknown) date) limitations unknown) (unknown) (no (unknown) (unknown) Liver:? Moderate (units (unknown) date) to significant unknown) hepatic steatosis.? No focal liver lesion.? No (unknown) (no (unknown) (unknown) Loc: ED (units (unkno wn) date) unknown) (unknown) (no (unknown) (unknown) Lung bases:? (units (u nknown) date) Bibasilar unknown) atelectatic and/or gravitational changes. (unknown) (no (unknown) (unknown) Lymph # (Auto) (units (unknown) date) 400 L (2520-7782) unknown) /uL (unknown) (no (unknown) (unknown) Lymph % (Auto) (units (unknown) date) 7.5 L (25-40) % unknown) (unknown) (no (unknown) (unknown) MCH 36.1 H (units (unk nown) date) (26-34) PG unknown) (unknown) (no (unknown) (unknown) MCHC 34.7 (30-36) (units (unknown) date) % unknown) (unknown) (no (unknown) (unknown) MCV 104.0 H (units (un known) date) (80-100) fL unknown) (unknown) (no (unknown) (unknown) MR#: [id number] (units (unknown) date) unknown) (unknown) (no (unknown) (unknown) Medical Decision (units (unknown) date) Making unknown) (unknown) (no (unknown) (unknown) Medical History (units (unknown) date) (Reviewed 08/21/22 unknown) @ 01:34 by Eleazar Ramos DO) (unknown) (no (unknown) (unknown) Medical Records (units (unknown) date) unknown) (unknown) (no (unknown) (unknown) Medical records (units (unknown) date) reviewed: Yes I unknown) reviewed the patient's medical records. (unknown) (no (unknown) (unknown) Medication (units (unk nown) date) Instructions unknown) Recorded (unknown) (no (unknown) (unknown) Miscellaneous: No (units (unknown) date) hernias are seen. unknown) ? ? 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 unknown) (unknown) (no (unknown) (unknown) Neuro (units (unkno wn) date) unknown) (unknown) (no (unknown) (unknown) Neurologic (units (unk nown) date) unknown) (unknown) (no (unknown) (unknown) Neurologic: (units (un known) date) Reports system unknown) reviewed and no additional complaints, except as (unknown) (no (unknown) (unknown) Neut # (Auto) (units ( unknown) date) 4700 (9359-6714) unknown) /uL (unknown) (no (unknown) (unknown) Neut % (Auto) (units ( unknown) date) 83.2 H (50-75) % unknown) (unknown) (no (unknown) (unknown) New (units (unkno wn) date) unknown) (unknown) (no (unknown) (unknown) No Action (units (unkn own) date) unknown) (unknown) (no (unknown) (unknown) Noncontrast 3 mm (units (unknown) date) thick sections unknown) acquired from the skull base to the T4 level.? (unknown) (no (unknown) (unknown) On (units (unkno wn) date) Anticoagulants: No unknown) (unknown) (no (unknown) (unknown) Ordered: (units (unkno wn) date) unknown) (unknown) (no (unknown) (unknown) Ordering (units (unkno wn) date) Provider: unknown) Eleazar Ramos D.O. (unknown) (no (unknown) (unknown) Orders (units (unkno wn) date) unknown) (unknown) (no (unknown) (unknown) Other: (units (unkno wn) date) unknown) (unknown) (no (unknown) (unknown) Oxygen Delivery (units (unknown) date) Method 08/21/22 unknown) 00:27 (unknown) (no (unknown) (unknown) Oxygen Delivery (units (unknown) date) Method Room Air unknown) Room Air (unknown) (no (unknown) (unknown) PELVIS: (units (unkno wn) date) unknown) (unknown) (no (unknown) (unknown) PROCEDURE:? CT (units (unknown) date) ABDOMEN PELVIS W unknown) CON (unknown) (no (unknown) (unknown) PROCEDURE:? CT (units (unknown) date) CERVICAL SPINE WO unknown) CON (unknown) (no (unknown) (unknown) Pancreas:? (units (unk nown) date) Normal. unknown) (unknown) (no (unknown) (unknown) Patient (units (unkno wn) date) Disposition: Home unknown) (unknown) (no (unknown) (unknown) Patient History (units (unknown) date) unknown) (unknown) (no (unknown) (unknown) Patient is a (units (u nknown) date) 76-year-old male unknown) who is brought in by EMS for evaluation of (unknown) (no (unknown) (unknown) Patient: (units (unkno wn) date) Eleazar Charles unknown) MR#: [id number] (unknown) (no (unknown) (unknown) Patient: (units (unkno wn) date) Eleazar Charles O unknown) (unknown) (no (unknown) (unknown) Pelvic Nodes: No (units (unknown) date) enlarged lymph unknown) nodes.? (unknown) (no (unknown) (unknown) Pelvic Organs:? (units (unknown) date) Mild unknown) prostatomegaly.? Large, partially imaged right hydrocele. (unknown) (no (unknown) (unknown) Peritoneum:? No (units (unknown) date) abnormal unknown) intraperitoneal fluid.? No free air.? (unknown) (no (unknown) (unknown) Plt Count 113 L (units (unknown) date) (150-400) X103/uL unknown) (unknown) (no (unknown) (unknown) Potassium 3.8 (units ( unknown) date) (3.4-5.1) mmol/L unknown) (unknown) (no (unknown) (unknown) Prescriptions: (units (unknown) date) unknown) (unknown) (no (unknown) (unknown) Previous Rx's (units ( unknown) date) unknown) (unknown) (no (unknown) (unknown) Procedure: CT (units ( unknown) date) abdomen pelvis w unknown) con (unknown) (no (unknown) (unknown) Procedure: CT (units ( unknown) date) cervical spine wo unknown) con (unknown) (no (unknown) (unknown) Pt reports taking (units (unknown) date) every other day, unknown) at best. Also stated' only takes 2 pills, (unknown) (no (unknown) (unknown) Pulse Oximetry 99 (units (unknown) date) 08/21/22 00:27 unknown) (unknown) (no (unknown) (unknown) Pulse Oximetry 99 (units (unknown) date) 100 unknown) (unknown) (no (unknown) (unknown) Pulse Rate 103 H (units (unknown) date) 08/21/22 00:27 unknown) (unknown) (no (unknown) (unknown) Pulse Rate 103 H (units (unknown) date) 72 unknown) (unknown) (no (unknown) (unknown) RBC 3.10 L (units (unk nown) date) (4.5-5.9) X106/uL unknown) (unknown) (no (unknown) (unknown) RDW 13.9 (units (unkno wn) date) (11.6-14.8) % unknown) (unknown) (no (unknown) (unknown) Radiologist's (units ( unknown) date) Impression: unknown) (unknown) (no (unknown) (unknown) Rate: regular (units ( unknown) date) rate unknown) (unknown) (no (unknown) (unknown) Referrals: (units (unk nown) date) unknown) (unknown) (no (unknown) (unknown) Related Data (units (u nknown) date) unknown) (unknown) (no (unknown) (unknown) Resp (units (unkno wn) date) unknown) (unknown) (no (unknown) (unknown) Respiratory Rate (units (unknown) date) 18 08/21/22 00:27 unknown) (unknown) (no (unknown) (unknown) Respiratory Rate (units (unknown) date) 18 20 unknown) (unknown) (no (unknown) (unknown) Respiratory (units (un known) date) unknown) (unknown) (no (unknown) (unknown) Respiratory: (units (u nknown) date) Reports system unknown) reviewed and no additional complaints, except as (unknown) (no (unknown) (unknown) Review of Systems (units (unknown) date) unknown) (unknown) (no (unknown) (unknown) Rhythm: regular (units (unknown) date) rhythm unknown) (unknown) (no (unknown) (unknown) Sagittal (units (unkno wn) date) unknown) (unknown) (no (unknown) (unknown) Signed By: (units (unk nown) date) unknown) (unknown) (no (unknown) (unknown) Signed (units (unkno wn) date) unknown) (unknown) (no (unknown) (unknown) Sister Rheumatoid (units (unknown) date) arthritis unknown) (unknown) (no (unknown) (unknown) Skin/Breast: (units (u nknown) date) Reports system unknown) reviewed and no additional complaints, except as (unknown) (no (unknown) (unknown) Smoking Status: (units (unknown) date) Former smoker unknown) (unknown) (no (unknown) (unknown) Social History (units (unknown) date) (Reviewed 08/21/22 unknown) @ 01:34 by Eleazar Ramos DO) (unknown) (no (unknown) (unknown) Sodium 135 L (units (u nknown) date) (137-145) mmol/L unknown) (unknown) (no (unknown) (unknown) Soft tissues:? (units (unknown) date) Prevertebral soft unknown) tissues are normal in thickness.? No (unknown) (no (unknown) (unknown) Source: patient (units (unknown) date) and EMS unknown) (unknown) (no (unknown) (unknown) Speech: speech (units (unknown) date) normal unknown) (unknown) (no (unknown) (unknown) Spleen:? Normal (units (unknown) date) size. unknown) (unknown) (no (unknown) (unknown) Stand Alone (units (un known) date) Forms: Patient unknown) Portal/API (unknown) (no (unknown) (unknown) Stated complaint: (units (unknown) date) GLF hit head unknown) (unknown) (no (unknown) (unknown) Stomach and (units (un known) date) Bowel:? Stomach, unknown) small bowel loops, and colon are unremarkable.? (unknown) (no (unknown) (unknown) Stop: 08/21/22 (units (unknown) date) 00:48 unknown) (unknown) (no (unknown) (unknown) Stop: 08/21/22 (units (unknown) date) 01:40 unknown) (unknown) (no (unknown) (unknown) Stop: 08/21/22 (units (unknown) date) 02:48 unknown) (unknown) (no (unknown) (unknown) Substance Use (units ( unknown) date) Type: does not use unknown) (unknown) (no (unknown) (unknown) Surgical History (units (unknown) date) (Reviewed 12/25/21 unknown) @ 16:19 by Pop Delgado PA-C) (unknown) (no (unknown) (unknown) T10 (units (unkno wn) date) unknown) (unknown) (no (unknown) (unknown) TECHNIQUE:? (units (un known) date) unknown) (unknown) (no (unknown) (unknown) Temperature 98.3 (units (unknown) date) F 08/21/22 00:27 unknown) (unknown) (no (unknown) (unknown) Temperature 98.3 (units (unknown) date) F unknown) (unknown) (no (unknown) (unknown) Tenderness to (units ( unknown) date) palpation right unknown) lower ribs. (unknown) (no (unknown) (unknown) Tenderness to (units ( unknown) date) palpation right unknown) upper quadrant (unknown) (no (unknown) (unknown) Time Seen by (units (u nknown) date) Provider: 08/21/22 unknown) 00:18 (unknown) (no (unknown) (unknown) Ventral Wall: ? (units (unknown) date) No hernias.? unknown) (unknown) (no (unknown) (unknown) Vessels:? Aorta (units (unknown) date) and inferior vena unknown) cava are normal in size.? Heavy abdominal (unknown) (no (unknown) (unknown) Vital Signs - 8 (units (unknown) date) hr unknown) (unknown) (no (unknown) (unknown) Vital Signs (units (un known) date) unknown) (unknown) (no (unknown) (unknown) Vital signs: (units (u nknown) date) unknown) (unknown) (no (unknown) (unknown) WBC 5.6 (units (unkno wn) date) (4.5-11.0) X103/uL unknown) (unknown) (no (unknown) (unknown) [Embedded Image (units (unknown) date) Not Available] unknown) (unknown) (no (unknown) (unknown) a cervical (units (unk nown) date) collar. unknown) (unknown) (no (unknown) (unknown) adjustment (units (unk nown) date) unknown) (unknown) (no (unknown) (unknown) alcohol intake (units (unknown) date) frequency: 3 or unknown) more drinks per day (unknown) (no (unknown) (unknown) alcohol intake: (units (unknown) date) current unknown) (unknown) (no (unknown) (unknown) also important (units (unknown) date) that you follow-up unknown) with the [facility] (ENT). You can (unknown) (no (unknown) (unknown) amoxicillin (units (un known) date) [AMOXICILLIN] unknown) Allergy Severe SWOLLEN JAW Verified 08/20/22 17:41 (unknown) (no (unknown) (unknown) and coronal (units (un known) date) reformats were unknown) then constructed.? For radiation dose reduction, the (unknown) (no (unknown) (unknown) anterior and (units (u nknown) date) unknown) (unknown) (no (unknown) (unknown) anterior portion (units (unknown) date) to the posterior unknown) portion of the ear. There is no active (unknown) (no (unknown) (unknown) antibiotic (units (unk nown) date) ointment over the unknown) laceration. Return to the emergency department for (unknown) (no (unknown) (unknown) any new symptoms. (units (unknown) date) unknown) (unknown) (no (unknown) (unknown) aortic (units (unkno wn) date) unknown) (unknown) (no (unknown) (unknown) atherosclerotic (units (unknown) date) calcification. unknown) (unknown) (no (unknown) (unknown) bases to the (units (u nknown) date) pubic symphysis.? unknown) Coronal and sagittal reformats were performed.? (unknown) (no (unknown) (unknown) bleeding. (units (unkn own) date) unknown) (unknown) (no (unknown) (unknown) calcification.? (units (unknown) date) unknown) (unknown) (no (unknown) (unknown) ciprofloxacin HCl (units (unknown) date) 250 mg tablet 250 unknown) mg PO BID 5 days #10 tabs 08/21/22 (unknown) (no (unknown) (unknown) ciprofloxacin HCl (units (unknown) date) [Cipro] 250 mg unknown) tablet (unknown) (no (unknown) (unknown) clindamycin (units (un known) date) [CLINDAMYCIN] unknown) AdvReac Severe C-DIFF Verified 08/20/22 17:41 (unknown) (no (unknown) (unknown) complaints, (units (un known) date) except as unknown) documented (unknown) (no (unknown) (unknown) compression (units (un known) date) unknown) (unknown) (no (unknown) (unknown) contact their (units ( unknown) date) office at the unknown) number provided below. You can put topical (unknown) (no (unknown) (unknown) dementia and (units (u nknown) date) problems with unknown) memory. He is not on any anticoagulation. He (unknown) (no (unknown) (unknown) department (units (unk nown) date) earlier today for unknown) palpitations and issues with his atrial (unknown) (no (unknown) (unknown) documented (units (unk nown) date) unknown) (unknown) (no (unknown) (unknown) fibrillation. (units ( unknown) date) According to the unknown) note the patient does have a significant alcohol (unknown) (no (unknown) (unknown) following (units (unkn own) date) unknown) (unknown) (no (unknown) (unknown) fracture with (units ( unknown) date) anterior endplate unknown) osteophytosis.? 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 (units (unk nown) date) unknown) (unknown) (no (unknown) (unknown) furosemide 20 mg (units (unknown) date) tablet 10 mg PO unknown) QAM #45 tabs 12/15/21 (unknown) (no (unknown) (unknown) furosemide 20 mg (units (unknown) date) tablet unknown) (unknown) (no (unknown) (unknown) furosemide 40 mg (units (unknown) date) tablet (Lasix) 40 unknown) mg PO QAM #30 tabs 08/20/22 (unknown) (no (unknown) (unknown) furosemide (units (unk nown) date) [Lasix] 40 mg unknown) tablet (unknown) (no (unknown) (unknown) having (units (unkno wn) date) palpitations he unknown) just lost his balance. He was seen here in the emergency (unknown) (no (unknown) (unknown) hematomas.? No (units (unknown) date) apical unknown) pneumothoraces.? Moderate to heavy carotid bulb (unknown) (no (unknown) (unknown) household (units (unkn own) date) members: none unknown) (unknown) (no (unknown) (unknown) hydronephrosis.? (units (unknown) date) No unknown) (unknown) (no (unknown) (unknown) hydroureter. (units (u nknown) date) Specifically, no unknown) evidence of right renal trauma. (unknown) (no (unknown) (unknown) injuries that he (units (unknown) date) sustained where he unknown) states he lost his balance at home and fell (unknown) (no (unknown) (unknown) involve the (units (un known) date) cartilage. Is unknown) approximally 4 cm total length but extends from the (unknown) (no (unknown) (unknown) laceration. (units (un known) date) unknown) (unknown) (no (unknown) (unknown) marital status: (units (unknown) date) unknown) (unknown) (no (unknown) (unknown) metoprolol (units (unk nown) date) succinate 25 mg 25 unknown) mg PO DAILY #30 tabs 10/30/21 (unknown) (no (unknown) (unknown) metoprolol (units (unk nown) date) succinate 25 mg unknown) tablet extended release 24 hr (unknown) (no (unknown) (unknown) occupational (units (u nknown) date) status: previously unknown) employed (unknown) (no (unknown) (unknown) of mA and/or kV (units (unknown) date) according to unknown) patient size.? (unknown) (no (unknown) (unknown) over hit his (units (u nknown) date) head. There was no unknown) loss of consciousness. He states he was not (unknown) (no (unknown) (unknown) paravertebral (units ( unknown) date) unknown) (unknown) (no (unknown) (unknown) patient (units (unkno wn) date) unknown) (unknown) (no (unknown) (unknown) posterior (units (unkn own) date) endplate spurs unknown) from C5 through C7.? Chronic T2 anterior wedge (unknown) (no (unknown) (unknown) process fracture (units (unknown) date) of T1.? This unknown) appears well corticated.? There are no acute (unknown) (no (unknown) (unknown) radiation dose (units (unknown) date) reduction, the unknown) following was used:? automated exposure control, (unknown) (no (unknown) (unknown) seen. (units (unkno wn) date) unknown) (unknown) (no (unknown) (unknown) since it RX'd'. (units (unknown) date) unknown) (unknown) (no (unknown) (unknown) size.? (units (unkno wn) date) unknown) (unknown) (no (unknown) (unknown) spinous (units (unkno wn) date) unknown) (unknown) (no (unknown) (unknown) start you on (units (u nknown) date) antibiotics. They unknown) were sent to [facility] in [place]. It is (unknown) (no (unknown) (unknown) state that his (units (unknown) date) right side is unknown) hurting. Patient arrived not on a backboard not in (unknown) (no (unknown) (unknown) substance use (units ( unknown) date) type: does not use unknown) (unknown) (no (unknown) (unknown) superior endplate (units (unknown) date) depression.? unknown) Moderate anterior wedge compression of T12.? (unknown) (no (unknown) (unknown) superior endplate (units (unknown) date) scalloping of L1 unknown) and L2.? None appear acute. (unknown) (no (unknown) (unknown) sustained a cut (units (unknown) date) to his left ear. unknown) He reports no other injuries although does (unknown) (no (unknown) (unknown) tablet,extended (units (unknown) date) release 24 hr unknown) (unknown) (no (unknown) (unknown) the lung (units (unkno wn) date) unknown) (unknown) (no (unknown) (unknown) use and also has (units (unknown) date) had balance issues unknown) and falls. There was also concern about (unknown) (no (unknown) (unknown) was used:? (units (unk nown) date) automated exposure unknown) control, adjustment of mA and/or kV according to Result panel [id number] (unknown) (no (unknown) (unknown) (no value) (units (unk nown) date) unknown) (unknown) (no (unknown) (unknown) (Cipro) (units (unkno wn) date) unknown) (unknown) (no (unknown) (unknown) 00:27 08/21/22 (units (unknown) date) unknown) (unknown) (no (unknown) (unknown) 00:30 00:30 (units (un known) date) unknown) (unknown) (no (unknown) (unknown) 08/21/22 00:26 (units (unknown) date) unknown) (unknown) (no (unknown) (unknown) 08/21/22 00:30 (units (unknown) date) unknown) (unknown) (no (unknown) (unknown) 08/21/22 08/21/22 (units (unknown) date) Range/Units unknown) (unknown) (no (unknown) (unknown) 08/21/22 (units (unkno wn) date) unknown) (unknown) (no (unknown) (unknown) [id number] (units (unkno wn) date) unknown) (unknown) (no (unknown) (unknown) 03:07 (units (unkno wn) date) unknown) (unknown) (no (unknown) (unknown) 1. 1. No CT (units (un known) date) evidence of acute unknown) intracranial trauma. (unknown) (no (unknown) (unknown) 1. No new (units (unkn own) date) fractures. unknown) (unknown) (no (unknown) (unknown) 1. Possibly acute (units (unknown) date) nondisplaced right unknown) posterior 11th rib fracture.? (unknown) (no (unknown) (unknown) 10 mg PO QAM Qty: (units (unknown) date) 45 1RF unknown) (unknown) (no (unknown) (unknown) [address] [place] [address] (units (unknown) date) unknown) (unknown) (no (unknown) (unknown) 18:21. (units (unkno wn) date) unknown) (unknown) (no (unknown) (unknown) 2. Chronic (units (unk nown) date) degenerative and unknown) remote posttraumatic changes as described.? (unknown) (no (unknown) (unknown) 2. Moderate to (units (unknown) date) severe hepatic unknown) steatosis. (unknown) (no (unknown) (unknown) 2. No significant (units (unknown) date) soft tissue injury unknown) or underlying fracture.? (unknown) (no (unknown) (unknown) 25 mg PO DAILY (units (unknown) date) Qty: 30 0RF unknown) (unknown) (no (unknown) (unknown) 250 mg PO BID 5 (units (unknown) date) Days Qty: 10 0RF unknown) (unknown) (no (unknown) (unknown) 3. Chronic (units (unk nown) date) microvascular unknown) ischemic changes and remote appearing tiny left (unknown) (no (unknown) (unknown) 3. Normal right (units (unknown) date) kidney without unknown) laceration. (unknown) (no (unknown) (unknown) 4. Several (units (unk nown) date) chronic appearing unknown) and stable vertebral body compression fractures.? (unknown) (no (unknown) (unknown) 40 mg PO QAM Qty: (units (unknown) date) 30 0RF unknown) (unknown) (no (unknown) (unknown) 11/19/2021, (units (unk nown) date) 19:57.? [place] unknown) [facility], CT, CT ANGIO CHEST PE PROTOCOL, 06/30/2022, (unknown) (no (unknown) (unknown) ? (units (unkno wn) date) unknown) (unknown) (no (unknown) (unknown) ABDOMEN: (units (unkno wn) date) unknown) (unknown) (no (unknown) (unknown) Abdominal Nodes:? (units (unknown) date) No retroperitoneal unknown) or mesenteric adenopathy by size criteria.? (unknown) (no (unknown) (unknown) Accession Number: (units (unknown) date) [id number] ?? unknown) (unknown) (no (unknown) (unknown) Accession Number: (units (unknown) date) [id number] ?? unknown) (unknown) (no (unknown) (unknown) Accession Number: (units (unknown) date) [id number] ?? unknown) (unknown) (no (unknown) (unknown) Acct:[id number] (units (unknown) date) unknown) (unknown) (no (unknown) (unknown) Activity (units (unkno wn) date) Restrictions/Addit unknown) ional Instructions: (unknown) (no (unknown) (unknown) Adrenal Glands:? (units (unknown) date) No nodules. unknown) (unknown) (no (unknown) (unknown) After the (units (unkn own) date) administration of unknown) intravenous contrast, axial sections acquired from (unknown) (no (unknown) (unknown) Age/Sex: 76 / M (units (unknown) date) unknown) (unknown) (no (unknown) (unknown) Alcohol abuse (units ( unknown) date) unknown) (unknown) (no (unknown) (unknown) Alcohol type: (units ( unknown) date) beer, wine and unknown) hard liquor (unknown) (no (unknown) (unknown) Alcohol (units (unkno wn) date) withdrawal unknown) delirium (unknown) (no (unknown) (unknown) Alcohol (units (unkno wn) date) withdrawal unknown) (unknown) (no (unknown) (unknown) Allergies (units (unkn own) date) unknown) (unknown) (no (unknown) (unknown) Allergy/AdvReac (units (unknown) date) Type Severity unknown) Reaction Status Date / Time (unknown) (no (unknown) (unknown) [place], [place] (units ( unknown) date) [id number] unknown) (unknown) (no (unknown) (unknown) Anemia, chronic (units (unknown) date) disease unknown) (unknown) (no (unknown) (unknown) Appendix not (units (u nknown) date) unknown) (unknown) (no (unknown) (unknown) Approved by: (units (u nknown) date) Kenisha Milian, unknown) M.D. on 08/21/2022 at 1:40 (unknown) (no (unknown) (unknown) Approved by: (units (u nknown) date) Kenisha Milian unknown) M.D. on 08/21/2022 at 1:45? (unknown) (no (unknown) (unknown) Approved by: (units (u nknown) date) Kenisha Milian unknown) M.D. on 08/21/2022 at 1:56?? (unknown) (no (unknown) (unknown) Atrial (units (unkno wn) date) fibrillation unknown) (unknown) (no (unknown) (unknown) Auscultation: (units ( unknown) date) clear to unknown) auscultation bilaterally (unknown) (no (unknown) (unknown) BPH w urinary (units ( unknown) date) obs/LUTS unknown) (unknown) (no (unknown) (unknown) BUN 17 (9-20) (units ( unknown) date) mg/dL unknown) (unknown) (no (unknown) (unknown) BUN/Creatinine (units (unknown) date) Ratio 14.2 (6-22) unknown) (unknown) (no (unknown) (unknown) Back/Spine/Pelvis (units (unknown) date) unknown) (unknown) (no (unknown) (unknown) Back: CVA (units (unkn own) date) tenderness right unknown) (unknown) (no (unknown) (unknown) Basic Metabolic (units (unknown) date) Panel Stat unknown) (unknown) (no (unknown) (unknown) Baso # (Auto) 0 (units (unknown) date) (0-100) /uL unknown) (unknown) (no (unknown) (unknown) Baso % (Auto) 0.8 (units (unknown) date) (0-2) % unknown) (unknown) (no (unknown) (unknown) Because of the (units ( unknown) date) location and the unknown) extent of the cut to your left ear we do need to (unknown) (no (unknown) (unknown) Bilateral upper (units (unknown) date) extremities unknown) unremarkable. Pelvis is stable. (unknown) (no (unknown) (unknown) Biliary ducts:? (units (unknown) date) Nondilated unknown) (unknown) (no (unknown) (unknown) Bladder:? Normal. (units (unknown) date) unknown) (unknown) (no (unknown) (unknown) Blood Pressure (units (unknown) date) 9464 08/21/22 unknown) 00:27 (unknown) (no (unknown) (unknown) Blood Pressure (units (unknown) date) 113/76 unknown) (unknown) (no (unknown) (unknown) Bones:? (units (unkno wn) date) Nondisplaced right unknown) posterior 11th rib fracture.? Probably acute.? Minor (unknown) (no (unknown) (unknown) Bones:? There is (units (unknown) date) degenerative unknown) anterior height loss of C7.? Mild to moderate (unknown) (no (unknown) (unknown) Brain:? No (units (unk nown) date) intracranial unknown) bleeds or masses.? There is cerebral volume loss for (unknown) (no (unknown) (unknown) COMPARISON:? (units (u nknown) date) [facility], unknown) CT, CT CERVICAL SPINE WO [facility], 08/20/2022, 18:43. (unknown) (no (unknown) (unknown) COMPARISON:? (units (u nknown) date) [facility], unknown) CT, CT HEAD/BRAIN WO [facility], 08/20/2022, 18:07. (unknown) (no (unknown) (unknown) COMPARISON:? (units (u nknown) date) [facility] unknown) Hospital, CT, CT CHEST ABDOMEN PELVIS WITH CONTRAST, (unknown) (no (unknown) (unknown) CSF spaces:? (units (u nknown) date) Basal cisterns are unknown) patent.? No extra-axial fluid collections.? The (unknown) (no (unknown) (unknown) CT - cervical (units ( unknown) date) spine: unknown) (unknown) (no (unknown) (unknown) CT Scan Report (units (unknown) date) unknown) (unknown) (no (unknown) (unknown) CT abdomen pelvis (units (unknown) date) w con Stat unknown) (unknown) (no (unknown) (unknown) CT cervical spine (units (unknown) date) wo con Stat unknown) (unknown) (no (unknown) (unknown) CT head/brain wo (units (unknown) date) con Stat unknown) (unknown) (no (unknown) (unknown) CT scan - (units (unkn own) date) abdomen/pelvis: unknown) (unknown) (no (unknown) (unknown) CT scan - head: (units (unknown) date) unknown) (unknown) (no (unknown) (unknown) Calcium 8.7 (units (un known) date) (8.4-10.2) mg/dL unknown) (unknown) (no (unknown) (unknown) Carbon Dioxide 23 (units (unknown) date) (22-32) mmol/L unknown) (unknown) (no (unknown) (unknown) Cardio (units (unkno wn) date) unknown) (unknown) (no (unknown) (unknown) Cardiomyopathy (units (unknown) date) unknown) (unknown) (no (unknown) (unknown) Cardiovascular (units (unknown) date) unknown) (unknown) (no (unknown) (unknown) Cardiovascular: (units (unknown) date) Reports system unknown) reviewed and no additional complaints, except as (unknown) (no (unknown) (unknown) Chest (units (unkno wn) date) unknown) (unknown) (no (unknown) (unknown) Chief complaint: (units (unknown) date) Fall unknown) (unknown) (no (unknown) (unknown) Chloride 98 (units (un known) date) (98-107) mmol/L unknown) (unknown) (no (unknown) (unknown) Ciprofloxacin (units ( unknown) date) (Ciprofloxacin 250 unknown) Mg Tablet) 250 mg PO NOW ONE (unknown) (no (unknown) (unknown) Clinical (units (unkno wn) date) Impression: unknown) (unknown) (no (unknown) (unknown) Complete Blood (units (unknown) date) Count AUTO DIFF unknown) Stat (unknown) (no (unknown) (unknown) Const (units (unkno wn) date) unknown) (unknown) (no (unknown) (unknown) Constitutional (units (unknown) date) unknown) (unknown) (no (unknown) (unknown) Constitutional: (units (unknown) date) Reports system unknown) reviewed and no additional complaints, except as (unknown) (no (unknown) (unknown) Course (units (unkno wn) date) unknown) (unknown) (no (unknown) (unknown) Creatinine 1.20 (units (unknown) date) (0.66-1.25) mg/dL unknown) (unknown) (no (unknown) (unknown) : 1945 (units (unknown) date) Acct:[id number] unknown) (unknown) (no (unknown) (unknown) : 1945 (units (unknown) date) unknown) (unknown) (no (unknown) (unknown) Date of Service: (units (unknown) date) 08/21/22 unknown) (unknown) (no (unknown) (unknown) Departure (units (unkn own) date) unknown) (unknown) (no (unknown) (unknown) Depth: (units (unkno wn) date) [id number] unknown) h (unknown) (no (unknown) (unknown) Description: (units (u nknown) date) irregular unknown) (unknown) (no (unknown) (unknown) Dictated by: (units (u nknown) date) Kenisha Milian unknownJana Marshall on 08/21/2022 at 1:38 ? ? (unknown) (no (unknown) (unknown) Dictated by: (units (u nknown) date) sukhdeep Le M.D. on 08/21/2022 at 1:41 ? ? (unknown) (no (unknown) (unknown) Dictated by: (units (u nknown) date) sukhdeep Le M.D. on 08/21/2022 at 1:45 ? ? (unknown) (no (unknown) (unknown) Discharge Plan (units (unknown) date) unknown) (unknown) (no (unknown) (unknown) Discontinued (units (u nknown) date) Medications unknown) (unknown) (no (unknown) (unknown) Documented By: SACHIN (units (unknown) date) unknown) (unknown) (no (unknown) (unknown) ED Orders (units (unkn own) date) unknown) (unknown) (no (unknown) (unknown) EKG-12 Lead Stat (units (unknown) date) unknown) (unknown) (no (unknown) (unknown) ENT (units (unkno wn) date) unknown) (unknown) (no (unknown) (unknown) ER Physician: (units ( unknown) date) Eleazar Ramos unknown) D.O. (unknown) (no (unknown) (unknown) Ears, Nose, (units (un known) date) Mouth, and Throat: unknown) Reports system reviewed and no additional (unknown) (no (unknown) (unknown) Effort + (units (unkno wn) date) Inspection: normal unknown) respiratory effort (unknown) (no (unknown) (unknown) Emergency Report (units (unknown) date) unknown) (unknown) (no (unknown) (unknown) Eos # (Auto) 0 (units (unknown) date) (0-450) /uL unknown) (unknown) (no (unknown) (unknown) Eos % (Auto) 0.3 (units (unknown) date) L (2-4) % unknown) (unknown) (no (unknown) (unknown) Estimated GFR > (units (unknown) date) 60 (>60) mL/min unknown) (unknown) (no (unknown) (unknown) Ethanol (ETOH) (units (unknown) date) Stat unknown) (unknown) (no (unknown) (unknown) Ethyl Alcohol < (units (unknown) date) 10 ( - 10) mg/dL unknown) (unknown) (no (unknown) (unknown) Exam (units (unkno wn) date) unknown) (unknown) (no (unknown) (unknown) Extrem (units (unkno wn) date) unknown) (unknown) (no (unknown) (unknown) FINDINGS:? (units (unk nown) date) unknown) (unknown) (no (unknown) (unknown) Family History (units (unknown) date) (Reviewed 12/25/21 unknown) @ 16:19 by Pop Delgado PA-C) (unknown) (no (unknown) (unknown) For (units (unkno wn) date) unknown) (unknown) (no (unknown) (unknown) Former smoker (units ( unknown) date) unknown) (unknown) (no (unknown) (unknown) GI (units (unkno wn) date) unknown) (unknown) (no (unknown) (unknown) Gallbladder:? (units ( unknown) date) Decompressed unknown) (unknown) (no (unknown) (unknown) Jeannette Chaudhary, (units (unknown) date) MD [Primary Care unknown) Provider] (unknown) (no (unknown) (unknown) General (units (unkno wn) date) unknown) (unknown) (no (unknown) (unknown) General: (units (unkno wn) date) cooperative and No unknown) ill appearing (unknown) (no (unknown) (unknown) General: patient (units (unknown) date) alert, patient unknown) awake and oriented (Person and place and year) (unknown) (no (unknown) (unknown) Glucose 116 H (units ( unknown) date) (80-110) mg/dL unknown) (unknown) (no (unknown) (unknown) Gout (units (unkno wn) date) unknown) (unknown) (no (unknown) (unknown) HENMT Other: (units (u nknown) date) Patient has a very unknown) complex laceration to the left ear. It does (unknown) (no (unknown) (unknown) HENMT (units (unkno wn) date) unknown) (unknown) (no (unknown) (unknown) HPI - General (units ( unknown) date) Adult unknown) (unknown) (no (unknown) (unknown) HPI narrative: (units (unknown) date) unknown) (unknown) (no (unknown) (unknown) HTN (units (unkno wn) date) (hypertension) unknown) (unknown) (no (unknown) (unknown) Michele Rey MD (units (unknown) date) [Physician] unknown) (unknown) (no (unknown) (unknown) Hct 32.2 L (units (unk nown) date) (41-53) % unknown) (unknown) (no (unknown) (unknown) Heart:? Moderate (units (unknown) date) cardiomegaly. unknown) (unknown) (no (unknown) (unknown) Hematologic/Lymph (units (unknown) date) atic unknown) (unknown) (no (unknown) (unknown) Hgb 11.2 L (units (unk nown) date) (13.5-17.5) g/dL unknown) (unknown) (no (unknown) (unknown) History of (units (unk nown) date) Present Illness unknown) (unknown) (no (unknown) (unknown) 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 (unknown) (no (unknown) (unknown) History of (units (unk nown) date) percutaneous unknown) endoscopic gastrostomy (-2020) (unknown) (no (unknown) (unknown) IMPRESSION:? (units (u nknown) date) unknown) (unknown) (no (unknown) (unknown) INDICATIONS:? (units ( unknown) date) Fall, alcohol use, unknown) left-sided head injury (unknown) (no (unknown) (unknown) INDICATIONS:? (units ( unknown) date) Fall, right-sided unknown) paraspinal cervical pain (unknown) (no (unknown) (unknown) INDICATIONS:? (units ( unknown) date) Right side flank unknown) pain after fall (unknown) (no (unknown) (unknown) Image quality:? (units (unknown) date) Excellent.? unknown) (unknown) (no (unknown) (unknown) Imaging Data (units (u nknown) date) unknown) (unknown) (no (unknown) (unknown) Initial Vital (units ( unknown) date) Signs unknown) (unknown) (no (unknown) (unknown) Initial Vital (units ( unknown) date) Signs: unknown) (unknown) (no (unknown) (unknown) Instructions: DI (units (unknown) date) for Rib Fracture, unknown) How to Prevent Falls (unknown) (no (unknown) (unknown) Integumentary/Arpita (units (unknown) date) asts unknown) (unknown) (no (unknown) (unknown) [facility] (units (unknown) date) [address] unknown) [place] [address] (unknown) (no (unknown) (unknown) [facility] (units (unknown) date) unknown) (unknown) (no (unknown) (unknown) Kidneys and (units (un known) date) Ureters:? unknown) Symmetric enhancement.? No nephrolithiasis or (unknown) (no (unknown) (unknown) Lab Data (units (unkno wn) date) unknown) (unknown) (no (unknown) (unknown) Lab Results (units (un known) date) unknown) (unknown) (no (unknown) (unknown) Lab results (units (un known) date) reviewed: Yes I unknown) reviewed the patient's lab results. (unknown) (no (unknown) (unknown) Label Comments: (units (unknown) date) unknown) (unknown) (no (unknown) (unknown) Labs: (units (unkno wn) date) unknown) (unknown) (no (unknown) (unknown) Laceration 1: (units ( unknown) date) unknown) (unknown) (no (unknown) (unknown) Laceration Repair (units (unknown) date) unknown) (unknown) (no (unknown) (unknown) Laceration of (units ( unknown) date) ear, Fracture of unknown) rib, Fall (unknown) (no (unknown) (unknown) Last Admin: (units (un known) date) 08/21/22 01:44 unknown) Dose: Not Given (unknown) (no (unknown) (unknown) Last Admin: (units (un known) date) 08/21/22 01:51 unknown) Dose: Not Given (unknown) (no (unknown) (unknown) Last Admin: (units (un known) date) 08/21/22 03:00 unknown) Dose: 250 mg (unknown) (no (unknown) (unknown) Lidocaine HCl (units ( unknown) date) (Lidocaine 2% Inj unknown) Mdv 20ml) 20 ml INJ INTRA-OP ONE (unknown) (no (unknown) (unknown) Lidocaine HCl (units ( unknown) date) (Lidocaine 2% Inj unknown) Sdv 5ml) 5 ml INJ INTRA-OP ONE (unknown) (no (unknown) (unknown) Limitations: no (units (unknown) date) limitations unknown) (unknown) (no (unknown) (unknown) Liver:? Moderate (units (unknown) date) to significant unknown) hepatic steatosis.? No focal liver lesion.? No (unknown) (no (unknown) (unknown) Loc: ED (units (unkno wn) date) unknown) (unknown) (no (unknown) (unknown) Local Anesthetic: (units (unknown) date) other anesthetic unknown) (Regional block) (unknown) (no (unknown) (unknown) Lung bases:? (units (u nknown) date) Bibasilar unknown) atelectatic and/or gravitational changes. (unknown) (no (unknown) (unknown) Lymph # (Auto) (units (unknown) date) 400 L (9475-7013) unknown) /uL (unknown) (no (unknown) (unknown) Lymph % (Auto) (units (unknown) date) 7.5 L (25-40) % unknown) (unknown) (no (unknown) (unknown) MCH 36.1 H (units (unk nown) date) (26-34) PG unknown) (unknown) (no (unknown) (unknown) MCHC 34.7 (30-36) (units (unknown) date) % unknown) (unknown) (no (unknown) (unknown) MCV 104.0 H (units (un known) date) (80-100) fL unknown) (unknown) (no (unknown) (unknown) MR#: [id number] (units (unknown) date) unknown) (unknown) (no (unknown) (unknown) Medical Decision (units (unknown) date) Making unknown) (unknown) (no (unknown) (unknown) Medical History (units (unknown) date) (Reviewed 08/21/22 unknown) @ 01:34 by Eleazar Ramos DO) (unknown) (no (unknown) (unknown) Medical Records (units (unknown) date) unknown) (unknown) (no (unknown) (unknown) Medical records (units (unknown) date) reviewed: Yes I unknown) reviewed the patient's medical records. (unknown) (no (unknown) (unknown) Medication (units (unk nown) date) Instructions unknown) Recorded (unknown) (no (unknown) (unknown) Miscellaneous: No (units (unknown) date) hernias are seen. unknown) ? ? 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 unknown) (unknown) (no (unknown) (unknown) Neuro (units (unkno wn) date) unknown) (unknown) (no (unknown) (unknown) Neurologic (units (unk nown) date) unknown) (unknown) (no (unknown) (unknown) Neurologic: (units (un known) date) Reports system unknown) reviewed and no additional complaints, except as (unknown) (no (unknown) (unknown) Neut # (Auto) (units ( unknown) date) 4700 (1045-1023) unknown) /uL (unknown) (no (unknown) (unknown) Neut % (Auto) (units ( unknown) date) 83.2 H (50-75) % unknown) (unknown) (no (unknown) (unknown) New (units (unkno wn) date) unknown) (unknown) (no (unknown) (unknown) No Action (units (unkn own) date) unknown) (unknown) (no (unknown) (unknown) Noncontrast 3 mm (units (unknown) date) thick sections unknown) acquired from the skull base to the T4 level.? (unknown) (no (unknown) (unknown) Noncontrast 4.5 (units (unknown) date) mm thick angled unknown) axial sections acquired from the foramen magnum (unknown) (no (unknown) (unknown) Number of (units (unkn own) date) sutures: 15 unknown) (unknown) (no (unknown) (unknown) On (units (unkno wn) date) Anticoagulants: No unknown) (unknown) (no (unknown) (unknown) Ordered: (units (unkno wn) date) unknown) (unknown) (no (unknown) (unknown) Ordering (units (unkno wn) date) Provider: unknown) Eleazar Ramos D.O. (unknown) (no (unknown) (unknown) Orders (units (unkno wn) date) unknown) (unknown) (no (unknown) (unknown) Other: (units (unkno wn) date) unknown) (unknown) (no (unknown) (unknown) Oxygen Delivery (units (unknown) date) Method 08/21/22 unknown) 00:27 (unknown) (no (unknown) (unknown) Oxygen Delivery (units (unknown) date) Method Room Air unknown) Room Air (unknown) (no (unknown) (unknown) PELVIS: (units (unkno wn) date) unknown) (unknown) (no (unknown) (unknown) PROCEDURE:? CT (units (unknown) date) ABDOMEN PELVIS W unknown) CON (unknown) (no (unknown) (unknown) PROCEDURE:? CT (units (unknown) date) CERVICAL SPINE WO unknown) CON (unknown) (no (unknown) (unknown) PROCEDURE:? CT (units (unknown) date) HEAD/BRAIN WO CON unknown) (unknown) (no (unknown) (unknown) Pancreas:? (units (unk nown) date) Normal. unknown) (unknown) (no (unknown) (unknown) Patient (units (unkno wn) date) Disposition: Home unknown) (unknown) (no (unknown) (unknown) Patient History (units (unknown) date) unknown) (unknown) (no (unknown) (unknown) Patient is a (units (u nknown) date) 76-year-old male unknown) who is brought in by EMS for evaluation of (unknown) (no (unknown) (unknown) Patient: (units (unkno wn) date) Eleazar Charles unknown) MR#: [id number] (unknown) (no (unknown) (unknown) Patient: (units (unkno wn) date) Eleazar Charles unknown) (unknown) (no (unknown) (unknown) Pelvic Nodes: No (units (unknown) date) enlarged lymph unknown) nodes.? (unknown) (no (unknown) (unknown) Pelvic Organs:? (units (unknown) date) Mild unknown) prostatomegaly.? Large, partially imaged right hydrocele. (unknown) (no (unknown) (unknown) Peritoneum:? No (units (unknown) date) abnormal unknown) intraperitoneal fluid.? No free air.? (unknown) (no (unknown) (unknown) Plt Count 113 L (units (unknown) date) (150-400) X103/uL unknown) (unknown) (no (unknown) (unknown) Potassium 3.8 (units ( unknown) date) (3.4-5.1) mmol/L unknown) (unknown) (no (unknown) (unknown) Pre-repair: wound (units (unknown) date) explored and unknown) irrigated extensively (unknown) (no (unknown) (unknown) Prescriptions: (units (unknown) date) unknown) (unknown) (no (unknown) (unknown) Previous Rx's (units ( unknown) date) unknown) (unknown) (no (unknown) (unknown) Procedure: CT (units ( unknown) date) abdomen pelvis w unknown) con (unknown) (no (unknown) (unknown) Procedure: CT (units ( unknown) date) cervical spine wo unknown) con (unknown) (no (unknown) (unknown) Procedure: CT (units ( unknown) date) head/brain wo con unknown) (unknown) (no (unknown) (unknown) Procedures (units (unk nown) date) unknown) (unknown) (no (unknown) (unknown) Pt reports taking (units (unknown) date) every other day, unknown) at best. Also stated' only takes 2 pills, (unknown) (no (unknown) (unknown) Pulse Oximetry 99 (units (unknown) date) 08/21/22 00:27 unknown) (unknown) (no (unknown) (unknown) Pulse Oximetry 99 (units (unknown) date) 100 unknown) (unknown) (no (unknown) (unknown) Pulse Rate 103 H (units (unknown) date) 08/21/22 00:27 unknown) (unknown) (no (unknown) (unknown) Pulse Rate 103 H (units (unknown) date) 72 unknown) (unknown) (no (unknown) (unknown) RBC 3.10 L (units (unk nown) date) (4.5-5.9) X106/uL unknown) (unknown) (no (unknown) (unknown) RDW 13.9 (units (unkno wn) date) (11.6-14.8) % unknown) (unknown) (no (unknown) (unknown) Radiologist's (units ( unknown) date) Impression: unknown) (unknown) (no (unknown) (unknown) Rate: regular (units ( unknown) date) rate unknown) (unknown) (no (unknown) (unknown) Referrals: (units (unk nown) date) unknown) (unknown) (no (unknown) (unknown) Related Data (units (u nknown) date) unknown) (unknown) (no (unknown) (unknown) Resp (units (unkno wn) date) unknown) (unknown) (no (unknown) (unknown) Respiratory Rate (units (unknown) date) 18 08/21/22 00:27 unknown) (unknown) (no (unknown) (unknown) Respiratory Rate (units (unknown) date) 18 20 unknown) (unknown) (no (unknown) (unknown) Respiratory (units (un known) date) unknown) (unknown) (no (unknown) (unknown) Respiratory: (units (u nknown) date) Reports system unknown) reviewed and no additional complaints, except as (unknown) (no (unknown) (unknown) Review of Systems (units (unknown) date) unknown) (unknown) (no (unknown) (unknown) Rhythm: regular (units (unknown) date) rhythm unknown) (unknown) (no (unknown) (unknown) Sagittal (units (unkno wn) date) unknown) (unknown) (no (unknown) (unknown) Side (If (units (unkno wn) date) applicable): left unknown) (unknown) (no (unknown) (unknown) Signed By: (units (unk nown) date) unknown) (unknown) (no (unknown) (unknown) Signed (units (unkno wn) date) unknown) (unknown) (no (unknown) (unknown) Sinuses:? (units (unkn own) date) Visualized sinuses unknown) and mastoids are clear.? (unknown) (no (unknown) (unknown) Sister Rheumatoid (units (unknown) date) arthritis unknown) (unknown) (no (unknown) (unknown) Site: other (Ear) (units (unknown) date) unknown) (unknown) (no (unknown) (unknown) Size (cm): 4 (units (u nknown) date) unknown) (unknown) (no (unknown) (unknown) Skin layer closed (units (unknown) date) with: other unknown) (Chromic) (unknown) (no (unknown) (unknown) Skin layer suture (units (unknown) date) size: 4-0 unknown) (unknown) (no (unknown) (unknown) Skin/Breast: (units (u nknown) date) Reports system unknown) reviewed and no additional complaints, except as (unknown) (no (unknown) (unknown) Skull and face:? (units (unknown) date) Calvarium and unknown) visualized facial bones appear intact, without (unknown) (no (unknown) (unknown) Smoking Status: (units (unknown) date) Former smoker unknown) (unknown) (no (unknown) (unknown) Social History (units (unknown) date) (Reviewed 08/21/22 unknown) @ 01:34 by Eleazar Ramos DO) (unknown) (no (unknown) (unknown) Sodium 135 L (units (u nknown) date) (137-145) mmol/L unknown) (unknown) (no (unknown) (unknown) Soft tissues:? (units (unknown) date) Prevertebral soft unknown) tissues are normal in thickness.? No (unknown) (no (unknown) (unknown) Source: patient (units (unknown) date) and EMS unknown) (unknown) (no (unknown) (unknown) Speech: speech (units (unknown) date) normal unknown) (unknown) (no (unknown) (unknown) Spleen:? Normal (units (unknown) date) size. unknown) (unknown) (no (unknown) (unknown) Stand Alone (units (un known) date) Forms: Patient unknown) Portal/API (unknown) (no (unknown) (unknown) Stated complaint: (units (unknown) date) GLF hit head unknown) (unknown) (no (unknown) (unknown) Stomach and (units (un known) date) Bowel:? Stomach, unknown) small bowel loops, and colon are unremarkable.? (unknown) (no (unknown) (unknown) Stop: 08/21/22 (units (unknown) date) 00:48 unknown) (unknown) (no (unknown) (unknown) Stop: 08/21/22 (units (unknown) date) 01:40 unknown) (unknown) (no (unknown) (unknown) Stop: 08/21/22 (units (unknown) date) 02:48 unknown) (unknown) (no (unknown) (unknown) Substance Use (units ( unknown) date) Type: does not use unknown) (unknown) (no (unknown) (unknown) Surgical History (units (unknown) date) (Reviewed 12/25/21 unknown) @ 16:19 by Pop Delagdo PA-C) (unknown) (no (unknown) (unknown) T10 (units (unkno wn) date) unknown) (unknown) (no (unknown) (unknown) TECHNIQUE:? (units (un known) date) unknown) (unknown) (no (unknown) (unknown) Technique: (units (unk nown) date) simple, unknown) interrupted (unknown) (no (unknown) (unknown) Temperature 98.3 (units (unknown) date) F 08/21/22 00:27 unknown) (unknown) (no (unknown) (unknown) Temperature 98.3 (units (unknown) date) F unknown) (unknown) (no (unknown) (unknown) Tenderness to (units ( unknown) date) palpation right unknown) lower ribs. (unknown) (no (unknown) (unknown) Tenderness to (units ( unknown) date) palpation right unknown) upper quadrant (unknown) (no (unknown) (unknown) Time Seen by (units (u nknown) date) Provider: 08/21/22 unknown) 00:18 (unknown) (no (unknown) (unknown) Ventral Wall: ? (units (unknown) date) No hernias.? unknown) (unknown) (no (unknown) (unknown) Vessels:? Aorta (units (unknown) date) and inferior vena unknown) cava are normal in size.? Heavy abdominal (unknown) (no (unknown) (unknown) Vital Signs - 8 (units (unknown) date) hr unknown) (unknown) (no (unknown) (unknown) Vital Signs (units (un known) date) unknown) (unknown) (no (unknown) (unknown) Vital signs: (units (u nknown) date) unknown) (unknown) (no (unknown) (unknown) WBC 5.6 (units (unkno wn) date) (4.5-11.0) X103/uL unknown) (unknown) (no (unknown) (unknown) [Embedded Image (units (unknown) date) Not Available] unknown) (unknown) (no (unknown) (unknown) a cervical (units (unk nown) date) collar. unknown) (unknown) (no (unknown) (unknown) adjustment (units (unk nown) date) unknown) (unknown) (no (unknown) (unknown) age, with (units (unkn own) date) unknown) (unknown) (no (unknown) (unknown) alcohol intake (units (unknown) date) frequency: 3 or unknown) more drinks per day (unknown) (no (unknown) (unknown) alcohol intake: (units (unknown) date) current unknown) (unknown) (no (unknown) (unknown) also important (units (unknown) date) that you follow-up unknown) with the [facility] ([facility]). You can (unknown) (no (unknown) (unknown) amoxicillin (units (un known) date) [AMOXICILLIN] unknown) Allergy Severe SWOLLEN JAW Verified 08/20/22 17:41 (unknown) (no (unknown) (unknown) and coronal (units (un known) date) reformats were unknown) then constructed.? For radiation dose reduction, the (unknown) (no (unknown) (unknown) and deep (units (unkno wn) date) unknown) (unknown) (no (unknown) (unknown) anterior and (units (u nknown) date) unknown) (unknown) (no (unknown) (unknown) anterior portion (units (unknown) date) to the posterior unknown) portion of the ear. There is no active (unknown) (no (unknown) (unknown) antibiotic (units (unk nown) date) ointment over the unknown) laceration. Return to the emergency department for (unknown) (no (unknown) (unknown) any new symptoms. (units (unknown) date) unknown) (unknown) (no (unknown) (unknown) aortic (units (unkno wn) date) unknown) (unknown) (no (unknown) (unknown) atherosclerotic (units (unknown) date) calcification. unknown) (unknown) (no (unknown) (unknown) bases to the (units (u nknown) date) pubic symphysis.? unknown) Coronal and sagittal reformats were performed.? (unknown) (no (unknown) (unknown) bleeding. (units (unkn own) date) unknown) (unknown) (no (unknown) (unknown) calcification.? (units (unknown) date) unknown) (unknown) (no (unknown) (unknown) ciprofloxacin HCl (units (unknown) date) 250 mg tablet 250 unknown) mg PO BID 5 days #10 tabs 08/21/22 (unknown) (no (unknown) (unknown) ciprofloxacin HCl (units (unknown) date) [Cipro] 250 mg unknown) tablet (unknown) (no (unknown) (unknown) clindamycin (units (un known) date) [CLINDAMYCIN] unknown) AdvReac Severe C-DIFF Verified 08/20/22 17:41 (unknown) (no (unknown) (unknown) complaints, (units (un known) date) except as unknown) documented (unknown) (no (unknown) (unknown) compression (units (un known) date) unknown) (unknown) (no (unknown) (unknown) contact their (units ( unknown) date) office at the unknown) number provided below. You can put topical (unknown) (no (unknown) (unknown) cortical loss (units ( unknown) date) unknown) (unknown) (no (unknown) (unknown) dementia and (units (u nknown) date) problems with unknown) memory. He is not on any anticoagulation. He (unknown) (no (unknown) (unknown) department (units (unk nown) date) earlier today for unknown) palpitations and issues with his atrial (unknown) (no (unknown) (unknown) documented (units (unk nown) date) unknown) (unknown) (no (unknown) (unknown) fibrillation. (units ( unknown) date) According to the unknown) note the patient does have a significant alcohol (unknown) (no (unknown) (unknown) following (units (unkn own) date) unknown) (unknown) (no (unknown) (unknown) fracture with (units ( unknown) date) anterior endplate unknown) osteophytosis.? 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 (units (unk nown) date) unknown) (unknown) (no (unknown) (unknown) furosemide 20 mg (units (unknown) date) tablet 10 mg PO unknown) QAM #45 tabs 12/15/21 (unknown) (no (unknown) (unknown) furosemide 20 mg (units (unknown) date) tablet unknown) (unknown) (no (unknown) (unknown) furosemide 40 mg (units (unknown) date) tablet (Lasix) 40 unknown) mg PO QAM #30 tabs 08/20/22 (unknown) (no (unknown) (unknown) furosemide (units (unk nown) date) [Lasix] 40 mg unknown) tablet (unknown) (no (unknown) (unknown) having (units (unkno wn) date) palpitations he unknown) just lost his balance. He was seen here in the emergency (unknown) (no (unknown) (unknown) hematomas.? No (units (unknown) date) apical unknown) pneumothoraces.? Moderate to heavy carotid bulb (unknown) (no (unknown) (unknown) household (units (unkn own) date) members: none unknown) (unknown) (no (unknown) (unknown) hydronephrosis.? (units (unknown) date) No unknown) (unknown) (no (unknown) (unknown) hydroureter. (units (u nknown) date) Specifically, no unknown) evidence of right renal trauma. (unknown) (no (unknown) (unknown) in the left (units (un known) date) posterior parietal unknown) region, presumably tiny infarct.? There is (unknown) (no (unknown) (unknown) infarct.? (units (unkn own) date) unknown) (unknown) (no (unknown) (unknown) injuries that he (units (unknown) date) sustained where he unknown) states he lost his balance at home and fell (unknown) (no (unknown) (unknown) internal carotid (units (unknown) date) artery unknown) atherosclerosis.? (unknown) (no (unknown) (unknown) intracranial (units (u nknown) date) unknown) (unknown) (no (unknown) (unknown) involve the (units (un known) date) cartilage. Is unknown) approximally 4 cm total length but extends from the (unknown) (no (unknown) (unknown) laceration. (units (un known) date) unknown) (unknown) (no (unknown) (unknown) lesions.? (units (unkn own) date) unknown) (unknown) (no (unknown) (unknown) marital status: (units (unknown) date) unknown) (unknown) (no (unknown) (unknown) metoprolol (units (unk nown) date) succinate 25 mg 25 unknown) mg PO DAILY #30 tabs 10/30/21 (unknown) (no (unknown) (unknown) metoprolol (units (unk nown) date) succinate 25 mg unknown) tablet extended release 24 hr (unknown) (no (unknown) (unknown) occupational (units (u nknown) date) status: previously unknown) employed (unknown) (no (unknown) (unknown) of mA and/or kV (units (unknown) date) according to unknown) patient size.? (unknown) (no (unknown) (unknown) over hit his (units (u nknown) date) head. There was no unknown) loss of consciousness. He states he was not (unknown) (no (unknown) (unknown) paravertebral (units ( unknown) date) unknown) (unknown) (no (unknown) (unknown) parietal (units (unkno wn) date) unknown) (unknown) (no (unknown) (unknown) patient (units (unkno wn) date) unknown) (unknown) (no (unknown) (unknown) posterior (units (unkn own) date) endplate spurs unknown) from C5 through C7.? Chronic T2 anterior wedge (unknown) (no (unknown) (unknown) process fracture (units (unknown) date) of T1.? This unknown) appears well corticated.? There are no acute (unknown) (no (unknown) (unknown) radiation dose (units (unknown) date) reduction, the unknown) following was used:? automated exposure control, (unknown) (no (unknown) (unknown) resultant (units (unkno wn) date) ventricular and unknown) sulcal prominence.? There are moderate periventricular (unknown) (no (unknown) (unknown) seen. (units (unkno wn) date) unknown) (unknown) (no (unknown) (unknown) since it RX'd'. (units (unknown) date) unknown) (unknown) (no (unknown) (unknown) size.? (units (unkno wn) date) unknown) (unknown) (no (unknown) (unknown) spinous (units (unkno wn) date) unknown) (unknown) (no (unknown) (unknown) start you on (units (u nknown) date) antibiotics. They unknown) were sent to [facility] in [place]. It is (unknown) (no (unknown) (unknown) state that his (units (unknown) date) right side is unknown) hurting. Patient arrived not on a backboard not in (unknown) (no (unknown) (unknown) substance use (units ( unknown) date) type: does not use unknown) (unknown) (no (unknown) (unknown) superior endplate (units (unknown) date) depression.? unknown) Moderate anterior wedge compression of T12.? (unknown) (no (unknown) (unknown) superior endplate (units (unknown) date) scalloping of L1 unknown) and L2.? None appear acute. (unknown) (no (unknown) (unknown) suspicious (units (unk nown) date) unknown) (unknown) (no (unknown) (unknown) sustained a cut (units (unknown) date) to his left ear. unknown) He reports no other injuries although does (unknown) (no (unknown) (unknown) tablet,extended (units (unknown) date) release 24 hr unknown) (unknown) (no (unknown) (unknown) the lung (units (unkno wn) date) unknown) (unknown) (no (unknown) (unknown) to the (units (unkno wn) date) unknown) (unknown) (no (unknown) (unknown) use and also has (units (unknown) date) had balance issues unknown) and falls. There was also concern about (unknown) (no (unknown) (unknown) ventricles are (units (unknown) date) symmetric in size unknown) and shape.? (unknown) (no (unknown) (unknown) vertex, with (units (u nknown) date) coronal and unknown) sagittal reformats.? For radiation dose reduction, the (unknown) (no (unknown) (unknown) was used:? (units (unk nown) date) automated exposure unknown) control, adjustment of mA and/or kV according to (unknown) (no (unknown) (unknown) white matter (units (u nknown) date) chronic small unknown) vessel ischemic changes.? There is a small area Result panel 935 (unknown) (no (unknown) (unknown) (no value) (units (unk nown) date) unknown) (unknown) (no (unknown) (unknown) <Electronically (units (unknown) date) signed by Eleazar Ramos D.O.> (unknown) (no (unknown) (unknown) (Cipro) (units (unkno wn) date) unknown) (unknown) (no (unknown) (unknown) 00:27 08/21/22 (units (unknown) date) unknown) (unknown) (no (unknown) (unknown) 00:30 00:30 (units (un known) date) unknown) (unknown) (no (unknown) (unknown) 08/21/22 00:26 (units (unknown) date) unknown) (unknown) (no (unknown) (unknown) 08/21/22 00:30 (units (unknown) date) unknown) (unknown) (no (unknown) (unknown) 08/21/22 08/21/22 (units (unknown) date) Range/Units unknown) (unknown) (no (unknown) (unknown) 08/21/22 0422 (units ( unknown) date) unknown) (unknown) (no (unknown) (unknown) 08/21/22 (units (unkno wn) date) unknown) (unknown) (no (unknown) (unknown) [id number] (units (unkno wn) date) unknown) (unknown) (no (unknown) (unknown) 03:07 (units (unkno wn) date) unknown) (unknown) (no (unknown) (unknown) 1. 1. No CT (units (un known) date) evidence of acute unknown) intracranial trauma. (unknown) (no (unknown) (unknown) 1. No new (units (unkn own) date) fractures. unknown) (unknown) (no (unknown) (unknown) 1. Possibly acute (units (unknown) date) nondisplaced right unknown) posterior 11th rib fracture.? (unknown) (no (unknown) (unknown) 10 mg PO QAM Qty: (units (unknown) date) 45 1RF unknown) (unknown) (no (unknown) (unknown) [address] (units (unknown) date) unknown) (unknown) (no (unknown) (unknown) 18:21. (units (unkno wn) date) unknown) (unknown) (no (unknown) (unknown) 2. Chronic (units (unk nown) date) degenerative and unknown) remote posttraumatic changes as described.? (unknown) (no (unknown) (unknown) 2. Moderate to (units (unknown) date) severe hepatic unknown) steatosis. (unknown) (no (unknown) (unknown) 2. No significant (units (unknown) date) soft tissue injury unknown) or underlying fracture.? (unknown) (no (unknown) (unknown) 25 mg PO DAILY (units (unknown) date) Qty: 30 0RF unknown) (unknown) (no (unknown) (unknown) 250 mg PO BID 5 (units (unknown) date) Days Qty: 10 0RF unknown) (unknown) (no (unknown) (unknown) 3. Chronic (units (unk nown) date) microvascular unknown) ischemic changes and remote appearing tiny left (unknown) (no (unknown) (unknown) 3. Normal right (units (unknown) date) kidney without unknown) laceration. (unknown) (no (unknown) (unknown) 4. Several (units (unk nown) date) chronic appearing unknown) and stable vertebral body compression fractures.? (unknown) (no (unknown) (unknown) 40 mg PO QAM Qty: (units (unknown) date) 30 0RF unknown) (unknown) (no (unknown) (unknown) 11/19/2021, (units (unk nown) date) 19:57.? [place] [facility], [facility], CT ANGIO CHEST PE PROTOCOL, 06/30/2022, (unknown) (no (unknown) (unknown) ? (units (unkno wn) date) unknown) (unknown) (no (unknown) (unknown) ABDOMEN: (units (unkno wn) date) unknown) (unknown) (no (unknown) (unknown) Abdominal Nodes:? (units (unknown) date) No retroperitoneal unknown) or mesenteric adenopathy by size criteria.? (unknown) (no (unknown) (unknown) Accession Number: (units (unknown) date) [id number] ?? unknown) (unknown) (no (unknown) (unknown) Accession Number: (units (unknown) date) [id number] ?? unknown) (unknown) (no (unknown) (unknown) Accession Number: (units (unknown) date) [id number] ?? unknown) (unknown) (no (unknown) (unknown) Acct:[id number] (units (unknown) date) unknown) (unknown) (no (unknown) (unknown) Activity (units (unkno wn) date) Restrictions/Addit unknown) ional Instructions: (unknown) (no (unknown) (unknown) Adrenal Glands:? (units (unknown) date) No nodules. unknown) (unknown) (no (unknown) (unknown) After the (units (unkn own) date) administration of unknown) intravenous contrast, axial sections acquired from (unknown) (no (unknown) (unknown) Age/Sex: 76 / M (units (unknown) date) unknown) (unknown) (no (unknown) (unknown) Alcohol abuse (units ( unknown) date) unknown) (unknown) (no (unknown) (unknown) Alcohol type: (units ( unknown) date) beer, wine and unknown) hard liquor (unknown) (no (unknown) (unknown) Alcohol (units (unkno wn) date) withdrawal unknown) delirium (unknown) (no (unknown) (unknown) Alcohol (units (unkno wn) date) withdrawal unknown) (unknown) (no (unknown) (unknown) Allergies (units (unkn own) date) unknown) (unknown) (no (unknown) (unknown) Allergy/AdvReac (units (unknown) date) Type Severity unknown) Reaction Status Date / Time (unknown) (no (unknown) (unknown) [place], [place] (units ( unknown) date) [id number] unknown) (unknown) (no (unknown) (unknown) Anemia, chronic (units (unknown) date) disease unknown) (unknown) (no (unknown) (unknown) Appendix not (units (u nknown) date) unknown) (unknown) (no (unknown) (unknown) Approved by: (units (u nknown) date) Kenisha Milian, unknown) M.Charbel. on 08/21/2022 at 1:40 (unknown) (no (unknown) (unknown) Approved by: (units (u nknown) date) Kenisha Milian, unknown) M.Charbel. on 08/21/2022 at 1:45? (unknown) (no (unknown) (unknown) Approved by: (units (u nknown) date) Kenisha Milian, unknown) MLynne. on 08/21/2022 at 1:56?? (unknown) (no (unknown) (unknown) Atrial (units (unkno wn) date) fibrillation unknown) (unknown) (no (unknown) (unknown) Attestation: I (units (unknown) date) personally unknown) reviewed and interpreted this ECG as follows: (unknown) (no (unknown) (unknown) Auscultation: (units ( unknown) date) clear to unknown) auscultation bilaterally (unknown) (no (unknown) (unknown) BPH w urinary (units ( unknown) date) obs/LUTS unknown) (unknown) (no (unknown) (unknown) BUN 17 (9-20) (units ( unknown) date) mg/dL unknown) (unknown) (no (unknown) (unknown) BUN/Creatinine (units (unknown) date) Ratio 14.2 (6-22) unknown) (unknown) (no (unknown) (unknown) Back/Spine/Pelvis (units (unknown) date) unknown) (unknown) (no (unknown) (unknown) Back: CVA (units (unkn own) date) tenderness right unknown) (unknown) (no (unknown) (unknown) Basic Metabolic (units (unknown) date) Panel Stat unknown) (unknown) (no (unknown) (unknown) Baso # (Auto) 0 (units (unknown) date) (0-100) /uL unknown) (unknown) (no (unknown) (unknown) Baso % (Auto) 0.8 (units (unknown) date) (0-2) % unknown) (unknown) (no (unknown) (unknown) Because of the (units ( unknown) date) location and the unknown) extent of the cut to your left ear we do need to (unknown) (no (unknown) (unknown) Bilateral upper (units (unknown) date) extremities unknown) unremarkable. Pelvis is stable. (unknown) (no (unknown) (unknown) Biliary ducts:? (units (unknown) date) Nondilated unknown) (unknown) (no (unknown) (unknown) Bladder:? Normal. (units (unknown) date) unknown) (unknown) (no (unknown) (unknown) Blood Pressure (units (unknown) date) 08/21/22 unknown) 00:27 (unknown) (no (unknown) (unknown) Blood Pressure (units (unknown) date) 113/76 unknown) (unknown) (no (unknown) (unknown) Bones:? (units (unkno wn) date) Nondisplaced right unknown) posterior 11th rib fracture.? Probably acute.? Minor (unknown) (no (unknown) (unknown) Bones:? There is (units (unknown) date) degenerative unknown) anterior height loss of C7.? Mild to moderate (unknown) (no (unknown) (unknown) Brain:? No (units (unk nown) date) intracranial unknown) bleeds or masses.? There is cerebral volume loss for (unknown) (no (unknown) (unknown) COMPARISON:? (units (u nknown) date) [facility], unknown) CT, CT CERVICAL SPINE [facility], 08/20/2022, 18:43. (unknown) (no (unknown) (unknown) COMPARISON:? (units (u nknown) date) [facility], unknown) CT, CT HEAD/BRAIN [facility], 08/20/2022, 18:07. (unknown) (no (unknown) (unknown) COMPARISON:? (units (u nknown) date) [facility] unknown) Hospital, CT, CT CHEST ABDOMEN PELVIS WITH CONTRAST, (unknown) (no (unknown) (unknown) CSF spaces:? (units (u nknown) date) Basal cisterns are unknown) patent.? No extra-axial fluid collections.? The (unknown) (no (unknown) (unknown) CT - cervical (units ( unknown) date) spine: unknown) (unknown) (no (unknown) (unknown) CT Scan Report (units (unknown) date) unknown) (unknown) (no (unknown) (unknown) CT abdomen pelvis (units (unknown) date) w con Stat unknown) (unknown) (no (unknown) (unknown) CT cervical spine (units (unknown) date) wo con Stat unknown) (unknown) (no (unknown) (unknown) CT head/brain wo (units (unknown) date) con Stat unknown) (unknown) (no (unknown) (unknown) CT scan - (units (unkn own) date) abdomen/pelvis: unknown) (unknown) (no (unknown) (unknown) CT scan - head: (units (unknown) date) unknown) (unknown) (no (unknown) (unknown) Calcium 8.7 (units (un known) date) (8.4-10.2) mg/dL unknown) (unknown) (no (unknown) (unknown) Carbon Dioxide 23 (units (unknown) date) (22-32) mmol/L unknown) (unknown) (no (unknown) (unknown) Cardio (units (unkno wn) date) unknown) (unknown) (no (unknown) (unknown) Cardiomyopathy (units (unknown) date) unknown) (unknown) (no (unknown) (unknown) Cardiovascular (units (unknown) date) unknown) (unknown) (no (unknown) (unknown) Cardiovascular: (units (unknown) date) Reports system unknown) reviewed and no additional complaints, except as (unknown) (no (unknown) (unknown) Chest (units (unkno wn) date) unknown) (unknown) (no (unknown) (unknown) Chief complaint: (units (unknown) date) Fall unknown) (unknown) (no (unknown) (unknown) Chloride 98 (units (un known) date) (98-107) mmol/L unknown) (unknown) (no (unknown) (unknown) Ciprofloxacin (units ( unknown) date) (Ciprofloxacin 250 unknown) Mg Tablet) 250 mg PO NOW ONE (unknown) (no (unknown) (unknown) Clinical (units (unkno wn) date) Impression: unknown) (unknown) (no (unknown) (unknown) Complete Blood (units (unknown) date) Count AUTO DIFF unknown) Stat (unknown) (no (unknown) (unknown) Const (units (unkno wn) date) unknown) (unknown) (no (unknown) (unknown) Constitutional (units (unknown) date) unknown) (unknown) (no (unknown) (unknown) Constitutional: (units (unknown) date) Reports system unknown) reviewed and no additional complaints, except as (unknown) (no (unknown) (unknown) Course (units (unkno wn) date) unknown) (unknown) (no (unknown) (unknown) Creatinine 1.20 (units (unknown) date) (0.66-1.25) mg/dL unknown) (unknown) (no (unknown) (unknown) : 1945 (units (unknown) date) Acct:[id number] unknown) (unknown) (no (unknown) (unknown) : 1945 (units (unknown) date) unknown) (unknown) (no (unknown) (unknown) Date of Service: (units (unknown) date) 08/21/22 unknown) (unknown) (no (unknown) (unknown) Departure (units (unkn own) date) unknown) (unknown) (no (unknown) (unknown) Depth: (units (unkno wn) date) [id number] unknown) h (unknown) (no (unknown) (unknown) Description: (units (u nknown) date) irregular unknown) (unknown) (no (unknown) (unknown) Dictated by: (units (u nknown) date) Kenisha Milian unknown) Joanna on 08/21/2022 at 1:38 ? ? (unknown) (no (unknown) (unknown) Dictated by: (units (u nknown) date) dariusz Le) Joanna on 08/21/2022 at 1:41 ? ? (unknown) (no (unknown) (unknown) Dictated by: (units (u nknown) date) dariusz Le) Joanna on 08/21/2022 at 1:45 ? ? (unknown) (no (unknown) (unknown) Discharge Plan (units (unknown) date) unknown) (unknown) (no (unknown) (unknown) Discontinued (units (u nknown) date) Medications unknown) (unknown) (no (unknown) (unknown) Documented By: [facility] (units (unknown) date) unknown) (unknown) (no (unknown) (unknown) ECG Data (units (unkno wn) date) unknown) (unknown) (no (unknown) (unknown) ED Orders (units (unkn own) date) unknown) (unknown) (no (unknown) (unknown) EKG-12 Lead Stat (units (unknown) date) unknown) (unknown) (no (unknown) (unknown) ENT (units (unkno wn) date) unknown) (unknown) (no (unknown) (unknown) ER Physician: (units ( unknown) date) Eleazar Ramos unknown) D.O. (unknown) (no (unknown) (unknown) Ears, Nose, (units (un known) date) Mouth, and Throat: unknown) Reports system reviewed and no additional (unknown) (no (unknown) (unknown) Effort + (units (unkno wn) date) Inspection: normal unknown) respiratory effort (unknown) (no (unknown) (unknown) Emergency Report (units (unknown) date) unknown) (unknown) (no (unknown) (unknown) Eos # (Auto) 0 (units (unknown) date) (0-450) /uL unknown) (unknown) (no (unknown) (unknown) Eos % (Auto) 0.3 (units (unknown) date) L (2-4) % unknown) (unknown) (no (unknown) (unknown) Estimated GFR > (units (unknown) date) 60 (>60) mL/min unknown) (unknown) (no (unknown) (unknown) Ethanol (ETOH) (units (unknown) date) Stat unknown) (unknown) (no (unknown) (unknown) Ethyl Alcohol < (units (unknown) date) 10 ( - 10) mg/dL unknown) (unknown) (no (unknown) (unknown) Exam (units (unkno wn) date) unknown) (unknown) (no (unknown) (unknown) Extrem (units (unkno wn) date) unknown) (unknown) (no (unknown) (unknown) FINDINGS:? (units (unk nown) date) unknown) (unknown) (no (unknown) (unknown) Family History (units (unknown) date) (Reviewed 12/25/21 unknown) @ 16:19 by Pop Delgado PA-C) (unknown) (no (unknown) (unknown) For (units (unkno wn) date) unknown) (unknown) (no (unknown) (unknown) Former smoker (units ( unknown) date) unknown) (unknown) (no (unknown) (unknown) GI (units (unkno wn) date) unknown) (unknown) (no (unknown) (unknown) Gallbladder:? (units ( unknown) date) Decompressed unknown) (unknown) (no (unknown) (unknown) Jeannette Chaudhary, (units (unknown) date) [Primary Care unknown) Provider] (unknown) (no (unknown) (unknown) General (units (unkno wn) date) unknown) (unknown) (no (unknown) (unknown) General: (units (unkno wn) date) cooperative and No unknown) ill appearing (unknown) (no (unknown) (unknown) General: patient (units (unknown) date) alert, patient unknown) awake and oriented (Person and place and year) (unknown) (no (unknown) (unknown) Glucose 116 H (units ( unknown) date) (80-110) mg/dL unknown) (unknown) (no (unknown) (unknown) Gout (units (unkno wn) date) unknown) (unknown) (no (unknown) (unknown) HENMT Other: (units (u nknown) date) Patient has a very unknown) complex laceration to the left ear. It does (unknown) (no (unknown) (unknown) HENMT (units (unkno wn) date) unknown) (unknown) (no (unknown) (unknown) HPI - General (units ( unknown) date) Adult unknown) (unknown) (no (unknown) (unknown) HPI narrative: (units (unknown) date) unknown) (unknown) (no (unknown) (unknown) HTN (units (unkno wn) date) (hypertension) unknown) (unknown) (no (unknown) (unknown) Michele Rey MD (units (unknown) date) [Physician] unknown) (unknown) (no (unknown) (unknown) Hct 32.2 L (units (unk nown) date) (41-53) % unknown) (unknown) (no (unknown) (unknown) Heart:? Moderate (units (unknown) date) cardiomegaly. unknown) (unknown) (no (unknown) (unknown) Hematologic/Lymph (units (unknown) date) atic unknown) (unknown) (no (unknown) (unknown) Hgb 11.2 L (units (unk nown) date) (13.5-17.5) g/dL unknown) (unknown) (no (unknown) (unknown) History of (units (unk nown) date) Present Illness unknown) (unknown) (no (unknown) (unknown) 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 (unknown) (no (unknown) (unknown) History of (units (unk nown) date) percutaneous unknown) endoscopic gastrostomy () (unknown) (no (unknown) (unknown) IMPRESSION:? (units (u nknown) date) unknown) (unknown) (no (unknown) (unknown) INDICATIONS:? (units ( unknown) date) Fall, alcohol use, unknown) left-sided head injury (unknown) (no (unknown) (unknown) INDICATIONS:? (units ( unknown) date) Fall, right-sided unknown) paraspinal cervical pain (unknown) (no (unknown) (unknown) INDICATIONS:? (units ( unknown) date) Right side flank unknown) pain after fall (unknown) (no (unknown) (unknown) Image quality:? (units (unknown) date) Excellent.? unknown) (unknown) (no (unknown) (unknown) Imaging Data (units (u nknown) date) unknown) (unknown) (no (unknown) (unknown) Initial Vital (units ( unknown) date) Signs unknown) (unknown) (no (unknown) (unknown) Initial Vital (units ( unknown) date) Signs: unknown) (unknown) (no (unknown) (unknown) Instructions: DI (units (unknown) date) for Rib Fracture, unknown) How to Prevent Falls (unknown) (no (unknown) (unknown) Integumentary/Arpita (units (unknown) date) asts unknown) (unknown) (no (unknown) (unknown) Interpretation: (units (unknown) date) unknown) (unknown) (no (unknown) (unknown) [facility] (units (unknown) date) [address] unknown) [place] [address] (unknown) (no (unknown) (unknown) [facility] (units (unknown) date) unknown) (unknown) (no (unknown) (unknown) It was closed as (units (unknown) date) described above. unknown) Because of the cartilage involvement we (unknown) (no (unknown) (unknown) Kidneys and (units (un known) date) Ureters:? unknown) Symmetric enhancement.? No nephrolithiasis or (unknown) (no (unknown) (unknown) Lab Data (units (unkno wn) date) unknown) (unknown) (no (unknown) (unknown) Lab Results (units (un known) date) unknown) (unknown) (no (unknown) (unknown) Lab results (units (un known) date) reviewed: Yes I unknown) reviewed the patient's lab results. (unknown) (no (unknown) (unknown) Label Comments: (units (unknown) date) unknown) (unknown) (no (unknown) (unknown) Labs: (units (unkno wn) date) unknown) (unknown) (no (unknown) (unknown) Laceration 1: (units ( unknown) date) unknown) (unknown) (no (unknown) (unknown) Laceration Repair (units (unknown) date) unknown) (unknown) (no (unknown) (unknown) Laceration of (units ( unknown) date) ear, Fracture of unknown) rib, Fall (unknown) (no (unknown) (unknown) Last Admin: (units (un known) date) 08/21/22 01:44 unknown) Dose: Not Given (unknown) (no (unknown) (unknown) Last Admin: (units (un known) date) 08/21/22 01:51 unknown) Dose: Not Given (unknown) (no (unknown) (unknown) Last Admin: (units (un known) date) 08/21/22 03:00 unknown) Dose: 250 mg (unknown) (no (unknown) (unknown) Lidocaine HCl (units ( unknown) date) (Lidocaine 2% Inj unknown) Mdv 20ml) 20 ml INJ INTRA-OP ONE (unknown) (no (unknown) (unknown) Lidocaine HCl (units ( unknown) date) (Lidocaine 2% Inj unknown) Sdv 5ml) 5 ml INJ INTRA-OP ONE (unknown) (no (unknown) (unknown) Limitations: no (units (unknown) date) limitations unknown) (unknown) (no (unknown) (unknown) Liver:? Moderate (units (unknown) date) to significant unknown) hepatic steatosis.? No focal liver lesion.? No (unknown) (no (unknown) (unknown) Loc: ED (units (unkno wn) date) unknown) (unknown) (no (unknown) (unknown) Local Anesthetic: (units (unknown) date) other anesthetic unknown) (Regional block) (unknown) (no (unknown) (unknown) Lung bases:? (units (u nknown) date) Bibasilar unknown) atelectatic and/or gravitational changes. (unknown) (no (unknown) (unknown) Lymph # (Auto) (units (unknown) date) 400 L (9064-2258) unknown) /uL (unknown) (no (unknown) (unknown) Lymph % (Auto) (units (unknown) date) 7.5 L (25-40) % unknown) (unknown) (no (unknown) (unknown) MCH 36.1 H (units (unk nown) date) (26-34) PG unknown) (unknown) (no (unknown) (unknown) MCHC 34.7 (30-36) (units (unknown) date) % unknown) (unknown) (no (unknown) (unknown) MCV 104.0 H (units (un known) date) (80-100) fL unknown) (unknown) (no (unknown) (unknown) MDM Narrative (units ( unknown) date) unknown) (unknown) (no (unknown) (unknown) MR#: [id number] (units (unknown) date) unknown) (unknown) (no (unknown) (unknown) Medical Decision (units (unknown) date) Making unknown) (unknown) (no (unknown) (unknown) Medical History (units (unknown) date) (Reviewed 08/21/22 unknown) @ 01:34 by Eleazar Ramos DO) (unknown) (no (unknown) (unknown) Medical Records (units (unknown) date) unknown) (unknown) (no (unknown) (unknown) Medical decision (units (unknown) date) making narrative: unknown) (unknown) (no (unknown) (unknown) Medical records (units (unknown) date) reviewed: Yes I unknown) reviewed the patient's medical records. (unknown) (no (unknown) (unknown) Medication (units (unk nown) date) Instructions unknown) Recorded (unknown) (no (unknown) (unknown) Miscellaneous: No (units (unknown) date) hernias are seen. unknown) ? ? 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 unknown) (unknown) (no (unknown) (unknown) Neuro (units (unkno wn) date) unknown) (unknown) (no (unknown) (unknown) Neurologic (units (unk nown) date) unknown) (unknown) (no (unknown) (unknown) Neurologic: (units (un known) date) Reports system unknown) reviewed and no additional complaints, except as (unknown) (no (unknown) (unknown) Neut # (Auto) (units ( unknown) date) 4700 (8811-4987) unknown) /uL (unknown) (no (unknown) (unknown) Neut % (Auto) (units ( unknown) date) 83.2 H (50-75) % unknown) (unknown) (no (unknown) (unknown) New (units (unkno wn) date) unknown) (unknown) (no (unknown) (unknown) No Action (units (unkn own) date) unknown) (unknown) (no (unknown) (unknown) Noncontrast 3 mm (units (unknown) date) thick sections unknown) acquired from the skull base to the T4 level.? (unknown) (no (unknown) (unknown) Noncontrast 4.5 (units (unknown) date) mm thick angled unknown) axial sections acquired from the foramen magnum (unknown) (no (unknown) (unknown) Nonspecific ST T (units (unknown) date) wave changes unknown) (unknown) (no (unknown) (unknown) Normal axis (units (un known) date) unknown) (unknown) (no (unknown) (unknown) Number of (units (unkn own) date) sutures: 15 unknown) (unknown) (no (unknown) (unknown) On (units (unkno wn) date) Anticoagulants: No unknown) (unknown) (no (unknown) (unknown) Ordered: (units (unkno wn) date) unknown) (unknown) (no (unknown) (unknown) Ordering (units (unkno wn) date) Provider: unknown) Eleazar Ramos D.O. (unknown) (no (unknown) (unknown) Orders (units (unkno wn) date) unknown) (unknown) (no (unknown) (unknown) Other: (units (unkno wn) date) unknown) (unknown) (no (unknown) (unknown) Oxygen Delivery (units (unknown) date) Method 08/21/22 unknown) 00:27 (unknown) (no (unknown) (unknown) Oxygen Delivery (units (unknown) date) Method Room Air unknown) Room Air (unknown) (no (unknown) (unknown) PELVIS: (units (unkno wn) date) unknown) (unknown) (no (unknown) (unknown) PROCEDURE:? CT (units (unknown) date) ABDOMEN PELVIS W unknown) CON (unknown) (no (unknown) (unknown) PROCEDURE:? CT (units (unknown) date) CERVICAL SPINE WO unknown) CON (unknown) (no (unknown) (unknown) PROCEDURE:? CT (units (unknown) date) HEAD/BRAIN WO CON unknown) (unknown) (no (unknown) (unknown) Pancreas:? (units (unk nown) date) Normal. unknown) (unknown) (no (unknown) (unknown) Patient (units (unkno wn) date) Disposition: Home unknown) (unknown) (no (unknown) (unknown) Patient History (units (unknown) date) unknown) (unknown) (no (unknown) (unknown) Patient is a (units (u nknown) date) 76-year-old male unknown) who is brought in by EMS for evaluation of (unknown) (no (unknown) (unknown) Patient was seen (units (unknown) date) earlier today and unknown) discharged home. He has had issues with (unknown) (no (unknown) (unknown) Patient: (units (unkno wn) date) Eleazar Charles Chandrika unknown) MR#: [id number] (unknown) (no (unknown) (unknown) Patient: (units (unkno wn) date) Eleazar Charles Chandrika unknown) (unknown) (no (unknown) (unknown) Pelvic Nodes: No (units (unknown) date) enlarged lymph unknown) nodes.? (unknown) (no (unknown) (unknown) Pelvic Organs:? (units (unknown) date) Mild unknown) prostatomegaly.? Large, partially imaged right hydrocele. (unknown) (no (unknown) (unknown) Peritoneum:? No (units (unknown) date) abnormal unknown) intraperitoneal fluid.? No free air.? (unknown) (no (unknown) (unknown) Plt Count 113 L (units (unknown) date) (150-400) X103/uL unknown) (unknown) (no (unknown) (unknown) Potassium 3.8 (units ( unknown) date) (3.4-5.1) mmol/L unknown) (unknown) (no (unknown) (unknown) Pre-repair: wound (units (unknown) date) explored and unknown) irrigated extensively (unknown) (no (unknown) (unknown) Prescriptions: (units (unknown) date) unknown) (unknown) (no (unknown) (unknown) Previous Rx's (units ( unknown) date) unknown) (unknown) (no (unknown) (unknown) Prior ECG (units (unkn own) date) tracings: unknown) available for review (unknown) (no (unknown) (unknown) Procedure: CT (units ( unknown) date) abdomen pelvis w unknown) con (unknown) (no (unknown) (unknown) Procedure: CT (units ( unknown) date) cervical spine wo unknown) con (unknown) (no (unknown) (unknown) Procedure: CT (units ( unknown) date) head/brain wo con unknown) (unknown) (no (unknown) (unknown) Procedures (units (unk nown) date) unknown) (unknown) (no (unknown) (unknown) Pt reports taking (units (unknown) date) every other day, unknown) at best. Also stated' only takes 2 pills, (unknown) (no (unknown) (unknown) Pulse Oximetry 99 (units (unknown) date) 08/21/22 00:27 unknown) (unknown) (no (unknown) (unknown) Pulse Oximetry 99 (units (unknown) date) 100 unknown) (unknown) (no (unknown) (unknown) Pulse Rate 103 H (units (unknown) date) 08/21/22 00:27 unknown) (unknown) (no (unknown) (unknown) Pulse Rate 103 H (units (unknown) date) 72 unknown) (unknown) (no (unknown) (unknown) RBC 3.10 L (units (unk nown) date) (4.5-5.9) X106/uL unknown) (unknown) (no (unknown) (unknown) RDW 13.9 (units (unkno wn) date) (11.6-14.8) % unknown) (unknown) (no (unknown) (unknown) Radiologist's (units ( unknown) date) Impression: unknown) (unknown) (no (unknown) (unknown) Rate: regular (units ( unknown) date) rate unknown) (unknown) (no (unknown) (unknown) Referrals: (units (unk nown) date) unknown) (unknown) (no (unknown) (unknown) Related Data (units (u nknown) date) unknown) (unknown) (no (unknown) (unknown) Resp (units (unkno wn) date) unknown) (unknown) (no (unknown) (unknown) Respiratory Rate (units (unknown) date) 18 08/21/22 00:27 unknown) (unknown) (no (unknown) (unknown) Respiratory Rate (units (unknown) date) 18 20 unknown) (unknown) (no (unknown) (unknown) Respiratory (units (un known) date) unknown) (unknown) (no (unknown) (unknown) Respiratory: (units (u nknown) date) Reports system unknown) reviewed and no additional complaints, except as (unknown) (no (unknown) (unknown) Review of Systems (units (unknown) date) unknown) (unknown) (no (unknown) (unknown) Rhythm: regular (units (unknown) date) rhythm unknown) (unknown) (no (unknown) (unknown) Sagittal (units (unkno wn) date) unknown) (unknown) (no (unknown) (unknown) Side (If (units (unkno wn) date) applicable): left unknown) (unknown) (no (unknown) (unknown) Signed By: (units (unk nown) date) unknown) (unknown) (no (unknown) (unknown) Signed (units (unkno wn) date) unknown) (unknown) (no (unknown) (unknown) Sinuses:? (units (unkn own) date) Visualized sinuses unknown) and mastoids are clear.? (unknown) (no (unknown) (unknown) Sister Rheumatoid (units (unknown) date) arthritis unknown) (unknown) (no (unknown) (unknown) Site: other (Ear) (units (unknown) date) unknown) (unknown) (no (unknown) (unknown) Size (cm): 4 (units (u nknown) date) unknown) (unknown) (no (unknown) (unknown) Skin layer closed (units (unknown) date) with: other unknown) (Chromic) (unknown) (no (unknown) (unknown) Skin layer suture (units (unknown) date) size: 4-0 unknown) (unknown) (no (unknown) (unknown) Skin/Breast: (units (u nknown) date) Reports system unknown) reviewed and no additional complaints, except as (unknown) (no (unknown) (unknown) Skull and face:? (units (unknown) date) Calvarium and unknown) visualized facial bones appear intact, without (unknown) (no (unknown) (unknown) Smoking Status: (units (unknown) date) Former smoker unknown) (unknown) (no (unknown) (unknown) Social History (units (unknown) date) (Reviewed 08/21/22 unknown) @ 01:34 by Eleazar Ramos DO) (unknown) (no (unknown) (unknown) Sodium 135 L (units (u nknown) date) (137-145) mmol/L unknown) (unknown) (no (unknown) (unknown) Soft tissues:? (units (unknown) date) Prevertebral soft unknown) tissues are normal in thickness.? No (unknown) (no (unknown) (unknown) Source: patient (units (unknown) date) and EMS unknown) (unknown) (no (unknown) (unknown) Speech: speech (units (unknown) date) normal unknown) (unknown) (no (unknown) (unknown) Spleen:? Normal (units (unknown) date) size. unknown) (unknown) (no (unknown) (unknown) Stand Alone (units (un known) date) Forms: Patient unknown) Portal/API (unknown) (no (unknown) (unknown) Stated complaint: (units (unknown) date) GLF hit head unknown) (unknown) (no (unknown) (unknown) Stomach and (units (un known) date) Bowel:? Stomach, unknown) small bowel loops, and colon are unremarkable.? (unknown) (no (unknown) (unknown) Stop: 08/21/22 (units (unknown) date) 00:48 unknown) (unknown) (no (unknown) (unknown) Stop: 08/21/22 (units (unknown) date) 01:40 unknown) (unknown) (no (unknown) (unknown) Stop: 08/21/22 (units (unknown) date) 02:48 unknown) (unknown) (no (unknown) (unknown) Substance Use (units ( unknown) date) Type: does not use unknown) (unknown) (no (unknown) (unknown) Surgical History (units (unknown) date) (Reviewed 12/25/21 unknown) @ 16:19 by Pop Delgado PA-C) (unknown) (no (unknown) (unknown) T10 (units (unkno wn) date) unknown) (unknown) (no (unknown) (unknown) TECHNIQUE:? (units (un known) date) unknown) (unknown) (no (unknown) (unknown) Technique: (units (unk nown) date) simple, unknown) interrupted (unknown) (no (unknown) (unknown) Temperature 98.3 (units (unknown) date) F 08/21/22 00:27 unknown) (unknown) (no (unknown) (unknown) Temperature 98.3 (units (unknown) date) F unknown) (unknown) (no (unknown) (unknown) Tenderness to (units ( unknown) date) palpation right unknown) lower ribs. (unknown) (no (unknown) (unknown) Tenderness to (units ( unknown) date) palpation right unknown) upper quadrant (unknown) (no (unknown) (unknown) There were no (units ( unknown) date) other acute unknown) findings on the CT scans. Patient was able to (unknown) (no (unknown) (unknown) Time Seen by (units (u nknown) date) Provider: 08/21/22 unknown) 00:18 (unknown) (no (unknown) (unknown) Ventral Wall: ? (units (unknown) date) No hernias.? unknown) (unknown) (no (unknown) (unknown) Ventricular rate (units (unknown) date) 86 unknown) (unknown) (no (unknown) (unknown) Vessels:? Aorta (units (unknown) date) and inferior vena unknown) cava are normal in size.? Heavy abdominal (unknown) (no (unknown) (unknown) Vital Signs - 8 (units (unknown) date) hr unknown) (unknown) (no (unknown) (unknown) Vital Signs (units (un known) date) unknown) (unknown) (no (unknown) (unknown) Vital signs: (units (u nknown) date) unknown) (unknown) (no (unknown) (unknown) WBC 5.6 (units (unkno wn) date) (4.5-11.0) X103/uL unknown) (unknown) (no (unknown) (unknown) [Embedded Image (units (unknown) date) Not Available] unknown) (unknown) (no (unknown) (unknown) a cervical (units (unk nown) date) collar. unknown) (unknown) (no (unknown) (unknown) adjustment (units (unk nown) date) unknown) (unknown) (no (unknown) (unknown) age, with (units (unkn own) date) unknown) (unknown) (no (unknown) (unknown) alcohol intake (units (unknown) date) frequency: 3 or unknown) more drinks per day (unknown) (no (unknown) (unknown) alcohol intake: (units (unknown) date) current unknown) (unknown) (no (unknown) (unknown) alcohol (units (unkno wn) date) withdrawal and unknown) also seizures and alcohol abuse. He is not on (unknown) (no (unknown) (unknown) also important (units (unknown) date) that you follow-up unknown) with the [facility] (ENT). You can (unknown) (no (unknown) (unknown) ambulate here in (units (unknown) date) the emergency unknown) department with a walker. He is no chest pain (unknown) (no (unknown) (unknown) amoxicillin (units (un known) date) [AMOXICILLIN] unknown) Allergy Severe SWOLLEN JAW Verified 08/20/22 17:41 (unknown) (no (unknown) (unknown) and also (units (unkno wn) date) recommendations to unknown) follow-up with ENT. He does have pain over what (unknown) (no (unknown) (unknown) and coronal (units (un known) date) reformats were unknown) then constructed.? For radiation dose reduction, the (unknown) (no (unknown) (unknown) and deep (units (unkno wn) date) unknown) (unknown) (no (unknown) (unknown) and no shortness (units (unknown) date) of breath and is unknown) rate controlled AFib. Patient will be (unknown) (no (unknown) (unknown) anterior and (units (u nknown) date) unknown) (unknown) (no (unknown) (unknown) anterior portion (units (unknown) date) to the posterior unknown) portion of the ear. There is no active (unknown) (no (unknown) (unknown) antibiotic (units (unk nown) date) ointment over the unknown) laceration. Return to the emergency department for (unknown) (no (unknown) (unknown) anticoagulation. (units (unknown) date) He is rate unknown) controlled AFib. He stated that at home he lost (unknown) (no (unknown) (unknown) any new symptoms. (units (unknown) date) unknown) (unknown) (no (unknown) (unknown) aortic (units (unkno wn) date) unknown) (unknown) (no (unknown) (unknown) appears to be a (units (unknown) date) rib fracture on unknown) the right side. This was seen on the CT scan. (unknown) (no (unknown) (unknown) atherosclerotic (units (unknown) date) calcification. unknown) (unknown) (no (unknown) (unknown) bases to the (units (u nknown) date) pubic symphysis.? unknown) Coronal and sagittal reformats were performed.? (unknown) (no (unknown) (unknown) bleeding. (units (unkn own) date) unknown) (unknown) (no (unknown) (unknown) calcification.? (units (unknown) date) unknown) (unknown) (no (unknown) (unknown) ciprofloxacin HCl (units (unknown) date) 250 mg tablet 250 unknown) mg PO BID 5 days #10 tabs 08/21/22 (unknown) (no (unknown) (unknown) ciprofloxacin HCl (units (unknown) date) [Cipro] 250 mg unknown) tablet (unknown) (no (unknown) (unknown) clindamycin (units (un known) date) [CLINDAMYCIN] unknown) AdvReac Severe C-DIFF Verified 08/20/22 17:41 (unknown) (no (unknown) (unknown) complaints, (units (un known) date) except as unknown) documented (unknown) (no (unknown) (unknown) compression (units (un known) date) unknown) (unknown) (no (unknown) (unknown) contact their (units ( unknown) date) office at the unknown) number provided below. You can put topical (unknown) (no (unknown) (unknown) cortical loss (units ( unknown) date) unknown) (unknown) (no (unknown) (unknown) dementia and (units (u nknown) date) problems with unknown) memory. He is not on any anticoagulation. He (unknown) (no (unknown) (unknown) department (units (unk nown) date) earlier today for unknown) palpitations and issues with his atrial (unknown) (no (unknown) (unknown) discharged home (units (unknown) date) with instructions unknown) to continue to take all his medications. He (unknown) (no (unknown) (unknown) documented (units (unk nown) date) unknown) (unknown) (no (unknown) (unknown) fibrillation. (units ( unknown) date) According to the unknown) note the patient does have a significant alcohol (unknown) (no (unknown) (unknown) following (units (unkn own) date) unknown) (unknown) (no (unknown) (unknown) fracture with (units ( unknown) date) anterior endplate unknown) osteophytosis.? 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 (units (unk nown) date) unknown) (unknown) (no (unknown) (unknown) furosemide 20 mg (units (unknown) date) tablet 10 mg PO unknown) QAM #45 tabs 12/15/21 (unknown) (no (unknown) (unknown) furosemide 20 mg (units (unknown) date) tablet unknown) (unknown) (no (unknown) (unknown) furosemide 40 mg (units (unknown) date) tablet (Lasix) 40 unknown) mg PO QAM #30 tabs 08/20/22 (unknown) (no (unknown) (unknown) furosemide (units (unk nown) date) [Lasix] 40 mg unknown) tablet (unknown) (no (unknown) (unknown) have a walker at (units (unknown) date) home however his unknown) states that he does not use it often. He (unknown) (no (unknown) (unknown) having (units (unkno wn) date) palpitations he unknown) just lost his balance. He was seen here in the emergency (unknown) (no (unknown) (unknown) hematomas.? No (units (unknown) date) apical unknown) pneumothoraces.? Moderate to heavy carotid bulb (unknown) (no (unknown) (unknown) his balance and (units (unknown) date) fell. This does unknown) not appear to be a new issue for him. He does (unknown) (no (unknown) (unknown) household (units (unkn own) date) members: none unknown) (unknown) (no (unknown) (unknown) hydronephrosis.? (units (unknown) date) No unknown) (unknown) (no (unknown) (unknown) hydroureter. (units (u nknown) date) Specifically, no unknown) evidence of right renal trauma. (unknown) (no (unknown) (unknown) in the left (units (un known) date) posterior parietal unknown) region, presumably tiny infarct.? There is (unknown) (no (unknown) (unknown) in the past will (units (unknown) date) place him on unknown) Cipro. He was given care instructions for this (unknown) (no (unknown) (unknown) infarct.? (units (unkn own) date) unknown) (unknown) (no (unknown) (unknown) injuries that he (units (unknown) date) sustained where he unknown) states he lost his balance at home and fell (unknown) (no (unknown) (unknown) internal carotid (units (unknown) date) artery unknown) atherosclerosis.? (unknown) (no (unknown) (unknown) intracranial (units (u nknown) date) unknown) (unknown) (no (unknown) (unknown) involve the (units (un known) date) cartilage. Is unknown) approximally 4 cm total length but extends from the (unknown) (no (unknown) (unknown) laceration. (units (un known) date) unknown) (unknown) (no (unknown) (unknown) lesions.? (units (unkn own) date) unknown) (unknown) (no (unknown) (unknown) marital status: (units (unknown) date) unknown) (unknown) (no (unknown) (unknown) metoprolol (units (unk nown) date) succinate 25 mg 25 unknown) mg PO DAILY #30 tabs 10/30/21 (unknown) (no (unknown) (unknown) metoprolol (units (unk nown) date) succinate 25 mg unknown) tablet extended release 24 hr (unknown) (no (unknown) (unknown) occupational (units (u nknown) date) status: previously unknown) employed (unknown) (no (unknown) (unknown) of mA and/or kV (units (unknown) date) according to unknown) patient size.? (unknown) (no (unknown) (unknown) over hit his (units (u nknown) date) head. There was no unknown) loss of consciousness. He states he was not (unknown) (no (unknown) (unknown) paravertebral (units ( unknown) date) unknown) (unknown) (no (unknown) (unknown) parietal (units (unkno wn) date) unknown) (unknown) (no (unknown) (unknown) patient (units (unkno wn) date) unknown) (unknown) (no (unknown) (unknown) posterior (units (unkn own) date) endplate spurs unknown) from C5 through C7.? Chronic T2 anterior wedge (unknown) (no (unknown) (unknown) process fracture (units (unknown) date) of T1.? This unknown) appears well corticated.? There are no acute (unknown) (no (unknown) (unknown) radiation dose (units (unknown) date) reduction, the unknown) following was used:? automated exposure control, (unknown) (no (unknown) (unknown) resultant (units (unkno wn) date) ventricular and unknown) sulcal prominence.? There are moderate periventricular (unknown) (no (unknown) (unknown) seen. (units (unkno wn) date) unknown) (unknown) (no (unknown) (unknown) since it RX'd'. (units (unknown) date) unknown) (unknown) (no (unknown) (unknown) size.? (units (unkno wn) date) unknown) (unknown) (no (unknown) (unknown) spinous (units (unkno wn) date) unknown) (unknown) (no (unknown) (unknown) start you on (units (u nknown) date) antibiotics. They unknown) were sent to [facility] in [place]. It is (unknown) (no (unknown) (unknown) state that his (units (unknown) date) right side is unknown) hurting. Patient arrived not on a backboard not in (unknown) (no (unknown) (unknown) substance use (units ( unknown) date) type: does not use unknown) (unknown) (no (unknown) (unknown) superior endplate (units (unknown) date) depression.? unknown) Moderate anterior wedge compression of T12.? (unknown) (no (unknown) (unknown) superior endplate (units (unknown) date) scalloping of L1 unknown) and L2.? None appear acute. (unknown) (no (unknown) (unknown) suspicious (units (unk nown) date) unknown) (unknown) (no (unknown) (unknown) sustained a cut (units (unknown) date) to his left ear. unknown) He reports no other injuries although does (unknown) (no (unknown) (unknown) sustained a very (units (unknown) date) complex laceration unknown) to his left ear than involve the cartilage. (unknown) (no (unknown) (unknown) tablet,extended (units (unknown) date) release 24 hr unknown) (unknown) (no (unknown) (unknown) the lung (units (unkno wn) date) unknown) (unknown) (no (unknown) (unknown) to the (units (unkno wn) date) unknown) (unknown) (no (unknown) (unknown) use and also has (units (unknown) date) had balance issues unknown) and falls. There was also concern about (unknown) (no (unknown) (unknown) ventricles are (units (unknown) date) symmetric in size unknown) and shape.? (unknown) (no (unknown) (unknown) vertex, with (units (u nknown) date) coronal and unknown) sagittal reformats.? For radiation dose reduction, the (unknown) (no (unknown) (unknown) was given return (units (unknown) date) precautions. unknown) (unknown) (no (unknown) (unknown) was used:? (units (unk nown) date) automated exposure unknown) control, adjustment of mA and/or kV according to (unknown) (no (unknown) (unknown) white matter (units (u nknown) date) chronic small unknown) vessel ischemic changes.? There is a small area (unknown) (no (unknown) (unknown) will place him on (units (unknown) date) antibiotics. unknown) Because of his allergies and issues with C diff Social History date description facility 2022-08-20 00:00 Ex-smoker (finding) [facility] 2022-08-21 00:00 Ex-smoker (finding) [facility] Vital Signs date measurement value units 2022-08-20 00:00 BMI 24.3 kg/m2 2022-08-20 00:00 BP_diastolic 70 mmHg 2022-08-20 00:00 BP_systolic 124 mmHg 2022-08-20 00:00 heart_rate 79 /min 2022-08-20 00:00 height_metric 175.26 cm 2022-08-20 00:00 height_standard 69 in 2022-08-20 00:00 o2_saturation 97 % 2022-08-20 00:00 respiration_rate 19 /min 2022-08-20 00:00 temperature_metric 37 C 2022-08-20 00:00 temperature_standard 98.6 F 2022-08-20 00:00 weight_metric 74.84 kg 2022-08-20 00:00 weight_standard 164.99 lb 2022-08-21 00:00 BMI 24.3 kg/m2 2022-08-21 00:00 BP_diastolic 76 mmHg 2022-08-21 00:00 BP_systolic 113 mmHg 2022-08-21 00:00 heart_rate 72 /min 2022-08-21 00:00 height_metric 175.26 cm 2022-08-21 00:00 height_standard 69 in 2022-08-21 00:00 o2_saturation 100 % 2022-08-21 00:00 respiration_rate 20 /min 2022-08-21 00:00 temperature_metric 36.83 C 2022-08-21 00:00 temperature_standard 98.3 F 2022-08-21 00:00 weight_metric 74.84 kg 2022-08-21 00:00 weight_standard 164.99 lb
[2022-10-02 13:42] LABS: ALBUMIN 3.7 g/dL (3.2-5.5); ALBUMIN/GLOBULIN RATIO 1.5 (1.0-2.2); ALKALINE PHOSPHATASE 69 IU/L (42-121); ALT ALANINE AMINOTRANSFERASE 24 IU/L (10-60); AST ASPARTATE AMINOTRANSFERASE 40 IU/L (10-42); BILIRUBIN,TOTAL 1.4 mg/dL (0.2-1.0); BUN - BLOOD UREA NITROGEN 16 mg/dL (6-20); CALCIUM 8.5 mg/dL (8.5-10.3); CARBON DIOXIDE - CO2 22 mmol/L (21-32); CHLORIDE 106 mmol/L (101-111); ETOH - ETHANOL < 5.0 mg/dL; GFR - MDRD 73 (>89); GLUCOSE 93 mg/dL (70-100); LIPASE 41 U/L (22-51); POTASSIUM 5.1 mmol/L (3.5-5.0); SODIUM 138 mmol/L (135-145); TOTAL PROTEIN 6.2 g/dL (6.7-8.2)
[2022-10-02 13:51] LABS: BILIRUBIN,URINE NEGATIVE (NEGATIVE); GLUCOSE, URINE (UA) NEGATIVE (NEGATIVE); KETONES,URINE (UA) NEGATIVE (NEGATIVE); LEUKOCYTE ESTERASE, URINE NEGATIVE (NEGATIVE); NITRITE,URINE NEGATIVE (NEGATIVE); OCCULT BLOOD,URINE NEGATIVE (NEGATIVE); PROTEIN,URINE NEGATIVE (NEGATIVE); UROBILINOGEN,URINE 0.2 (NORMAL) E.U./dL (NORMAL)
[2022-10-02 13:55] LABS: CLARITY,URINE CLEAR (CLEAR)
[2022-10-02 14:02] LABS: BACTERIA,URINE Rare /HPF (None Seen); RBC,URINE 0-5 /HPF (0-5); SQUAMOUS EPITHELIAL CELL,UR RARE Squamous (<= Few); WBC,URINE 0-3 /HPF (0-3)
[2022-10-02] MEDS ORDERED: SODIUM CHLORIDE 0.9% 500 ML IV STA (14:37)
[2022-10-02] MEDS ORDERED: METOPROLOL TARTRATE 50 MG TABLET PO STA (14:38)
[2022-10-02 15:15] VITALS: BP 139/96
== END 2022-10-02 16:13 | disposition home or self-care (01) ==
LOC: EDUNIT# → ED 12:57
DX: I48.0 Paroxysmal atrial fibrillation (principal); R53.1 Weakness; I10 Essential (primary) hypertension; Z91.14 Patient's other noncompliance with medication regimen
CPT/HCPCS: 36415; 71045; 80053; 81001; 83690; 84484; 85025; 85610; 93005; 96361; 96374; 99284; A9270; G0480; 80320; 87086

== ENCOUNTER 2022-12-05 07:55 | Outpatient (CLI) | payer MEDICARE, OTHER | END 2022-12-05 23:59 | disposition critical access hospital (66) | LOC: EMS 07:55 | DX: R07.89 Other chest pain (principal); W18.30XA Fall on same level, unspecified, initial encounter; Y92.099 Unspecified place in other non-institutional residence as the place of occurrence of the external cause; R25.1 Tremor, unspecified; R26.2 Difficulty in walking, not elsewhere classified | CPT/HCPCS: A0425; A0429 ==

== ENCOUNTER 2022-12-05 08:10 | Emergency (ER) | payer MEDICARE, OTHER ==
[2022-12-05] MEDS ORDERED: SODIUM CHLORIDE 0.9% 1,000 ML IV STA ×2 (08:29→10:25)
[2022-12-05 08:45] LABS: BASOPHILS # (AUTO) 0.1 10^3/uL (0.0-0.1); EOSINOPHILS % (AUTO) 0.5 %; HCT - HEMATOCRIT 31.5 % (42.0-52.0); HGB - HEMOGLOBIN 10.6 g/dL (14.0-18.0); LYMPHOCYTES % (AUTO) 12.1 %; MEAN CORPUSCULAR HEMOGLOBIN 35.2 pg (27.0-31.0); MEAN CORPUSCULAR HGB CONC 33.7 g/dL (32.0-36.0); MEAN CORPUSCULAR VOLUME 104.7 fL (80.0-94.0); MEAN PLATELET VOLUME 9.6 fL (7.4-11.4); MONOCYTES # (AUTO) 0.7 10^3/uL (0.0-1.0); MONOCYTES % (AUTO) 8.9 %; NEUTROPHILS # (AUTO) 6.3 10^3/uL (1.5-6.6); NEUTROPHILS % (AUTO) 77.3 %; PLT - PLATELET COUNT 119 10^3/uL (130-450); RED BLOOD COUNT 3.01 10^6/uL (4.70-6.10); RED CELL DISTRIBUTION WIDTH 13.1 % (12.0-15.0); WHITE BLOOD COUNT 8.1 x10^3/uL (4.8-10.8)
--- NOTE | 2022-12-05 08:56 | XRAY Report ---
PROCEDURE: Chest 1 View X-Ray INDICATIONS: chest pain TECHNIQUE: One view of the chest was acquired. COMPARISON: None. FINDINGS: Surgical changes and devices: None. Lungs and pleura: No pleural effusions or pneumothorax. Lungs are clear. Elevated left hemidiaphrag m with associated left basilar atelectasis. Mediastinum: Mediastinal contours appear normal. Heart size is normal. Bones and chest wall: No suspicious bony lesions. Overlying soft tissues appear unremarkable. IMPRESSION: No displaced fracture or pneumothorax. Elevated left hemidiaphragm with associated left basilar atelectasis. Reviewed by: Lucien Pham on 12/05/2022 8:55 AM PDT Approved by: Lucien Pham on 12/05/2022 8:55 AM PDT Station ID: [id number]
[2022-12-05] MEDS ORDERED: LORazepam 2 MG/ML VIAL IVP STA (09:01)
[2022-12-05 09:05] LABS: ALBUMIN 3.9 g/dL (3.2-5.5); ALBUMIN/GLOBULIN RATIO 1.7 (1.0-2.2); BILIRUBIN,TOTAL 1.5 mg/dL (0.2-1.0); CALCIUM 8.7 mg/dL (8.5-10.3); POTASSIUM 4.2 mmol/L (3.5-5.0); TOTAL PROTEIN 6.2 g/dL (6.7-8.2)
[2022-12-05 09:13] LABS: PT - PROTHROMBIN TIME 10.9 secs (9.9-12.6)
--- NOTE | 2022-12-05 11:40 | ED Physician Documentation ---
History of Present Illness - Stated complaint Stated Complaint: GLF/AFIB - Chief complaint Chief Complaint: Trauma Hd/Nk - History obtained from History obtained from: Patient, EMS - Additonal information Additional information: The patient is brought to the emergency department for chief complaint of chest pain after a fall last night. Patient has a history of alcoholism and dementia and lives at [facility], and does not remember taking the fall last night. He this morning noticed he had some pain in his central chest that seemed sharp and worse with a deep breath, and so the [facility] staff called EMS to bring him here. The patient denies any fevers or chills. No cough. He has a history of alcoholism and was admitted here recently for this. He states his last drink was about 5 days ago. He is tremulous though he states he did not know that he was. He does not feel as though he is withdrawing and states that even though he has been a heavy drinker and has quit many times along the way, he has never ever gone through withdrawal. No other complaints at this time. Patient denies any pain in his spine or extremities after falling. He was ambulatory after the fall, per medics, but seem to incoordinated or weak to stand up when they came to pick him up. The patient does admit to not drinking very much water and thinks he might be dehydrated. PD PAST MEDICAL HISTORY - Past Medical History Past Medical History: Yes Cardiovascular: Hypertension, Atrial fibrillation Respiratory: None Neuro: None Endocrine/Autoimmune: None GI: None : None HEENT: None Psych: None Musculoskeletal: None Derm: None - Past Surgical History Past Surgical History: No - Present Medications Home Medications: Ambulatory Orders Medication Instructions Recorded Confirmed Metoprolol Tartrate [Lopressor] 25 mg PO BID #60 tablet 06/25/22 12/05/22 - Allergies Allergies/Adverse Reactions: Allergies Allergy/AdvReac Type Severity Reaction Status Date / Time amoxicillin Allergy Unknown Verified 12/05/22 08:21 clindamycin Allergy Unknown Verified 12/05/22 08:21 Penicillins Allergy Unknown Verified 12/05/22 08:21 - Social History Does the pt smoke?: No Smoking Status: Never smoker Does the pt drink ETOH?: Yes Does the pt have substance abuse?: No - Immunizations Immunizations are current?: No - POLST Patient has POLST: No POLST Status: Full Code PD ED PE NORMAL - Vitals Vital signs reviewed: Yes - General General: Alert and oriented X 3, No acute distress, Well developed/nourished - HEENT HEENT: Atraumatic, PERRL, EOMI, Moist mucous membranes - Neck Neck: Supple, no meningeal sign - Cardiac Cardiac: RRR, No murmur, Strong equal pulses - Respiratory Respiratory: No respiratory distress, Clear bilaterally - Abdomen Abdomen: Soft, Non tender, Non distended - Derm Derm: Normal color, Warm and dry - Extremities Extremities: No deformity, No edema, No calf tenderness / cord - Neuro Neuro: Alert and oriented X 3, Other (The patient is grossly tremulous. No ataxia. No gross deficits.) - Psych Psych: Normal mood, Normal affect Results - Vitals Vitals: Vital Signs - 24 hr 12/05/22 12/05/22 12/05/22 08:15 08:41 10:22 Temperature 36.4 C L Heart Rate 108 H 103 H 98 Respiratory 16 21 17 Rate Blood Pressure 139/90 H 142/107 H 109/78 O2 Saturation 97 97 96 12/05/22 13:24 Temperature 36.6 C Heart Rate 88 Respiratory 16 Rate Blood Pressure 132/93 H O2 Saturation 98 Oxygen O2 Source Room air - EKG (time done) 0810 EKG releavant findings:: EKG personally interpreted by author of this note. Relevant findings are: Rate: Rate (enter#) (109) Rhythm: Atrial fibrillation [place]: Normal Intervals: Normal [place] QRS: Normal Ischemia: Non specific changes Compare to prior EKG: Old EKG unavailable Computer interpretation: Agree with computer - Labs Labs: Laboratory Tests 12/05/22 12/05/22 12/05/22 08:40 08:40 08:40 WBC 8.1 RBC 3.01 L Hgb 10.6 L Hct 31.5 L MCV 104.7 H MCH 35.2 H MCHC 33.7 RDW 13.1 Plt Count 119 L MPV 9.6 Neut # (Auto) 6.3 Lymph # (Auto) 1.0 L [place] # (Auto) 0.7 Eos # (Auto) 0.0 Baso # (Auto) 0.1 Absolute Nucleated RBC 0.00 Nucleated RBC % 0.0 PT 10.9 INR 1.0 Sodium 140 Potassium 4.2 Chloride 104 Carbon Dioxide 28 Anion Gap 8.0 BUN 24 H Creatinine 1.0 Estimated GFR (MDRD) 73 L Glucose 107 H Calcium 8.7 Total Bilirubin 1.5 H AST 60 H ALT 40 Alkaline Phosphatase 55 Total Protein 6.2 L Albumin 3.9 Globulin 2.3 Albumin/Globulin Ratio 1.7 Lipase 35 Ethyl Alcohol 12/05/22 08:40 WBC RBC Hgb Hct MCV MCH MCHC RDW Plt Count MPV Neut # (Auto) Lymph # (Auto) [place] # (Auto) Eos # (Auto) Baso # (Auto) Absolute Nucleated RBC Nucleated RBC % PT INR Sodium Potassium Chloride Carbon Dioxide Anion Gap BUN Creatinine Estimated GFR (MDRD) Glucose Calcium Total Bilirubin AST ALT Alkaline Phosphatase Total Protein Albumin Globulin Albumin/Globulin Ratio Lipase Ethyl Alcohol < 5.0 - Rads (name of study) Chest x-ray Relevant Findings:: Final report received, See rad report (No acute findings) PD Medical Decision Making - ED course Complexity details: reviewed results, re-evaluated patient, considered differential, d/w patient ED course: The patient was noted to have a jump in his heart rate by about 20 bpm when I took him from supine to sitting up for the lung exam, and he suspected some volume contraction. Patient was treated with a total of 2 L of 0.9 normal saline in the ED. He was worked up with laboratory studies which were unremarkable, and a chest x-ray which was also patient unremarkable. The patient was found to be feeling much better after fluids and ambulated without difficulty in the emergency department. He did not have any further development or worsening of his chest pain, which had gone away by the time he came to to the emergency department. I felt the patient was stable for discharge home. We have discussed the usual indications for follow-up and return. Departure - Departure Disposition: 01 Home, Self Care Clinical Impression: Generalized weakness, Dehydration Condition: Stable Instructions: ED Dehydration Comments: Your labs look good. You were quite dehydrated and we gave you 2 bags of IV fluids. You been able to get up and around here and doing much better. Your atrial fibrillation is under control at this time with a good heart rate. 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 You most likely have some nerve damage from the years of alcohol abuse, and this might be part of the reason you have been shaking. Please talk to your doctor about what you can do about this. Discharge Date/Time: 12/05/22 13:26
[2022-12-05 13:29] VITALS: BP 132/93
== END 2022-12-05 13:26 | disposition home or self-care (01) ==
LOC: EDUNIT# → ED 08:10
DX: R53.1 Weakness (principal); E86.0 Dehydration; I48.91 Unspecified atrial fibrillation
CPT/HCPCS: 36415; 71045; 80053; 83690; 84425; 85025; 85610; 93005; 96361; 96374; 99283; 99284; G0480; J2060; 80320

== ENCOUNTER 2022-12-25 08:47 | Outpatient (CLI) | payer MEDICARE, OTHER | END 2022-12-25 20:25 | disposition critical access hospital (66) | LOC: EMS 08:47 | DX: R07.9 Chest pain, unspecified (principal) | CPT/HCPCS: A0425; A0429 ==

== ENCOUNTER 2022-12-25 09:03 | Emergency (ER) | payer MEDICARE, OTHER ==
[2022-12-25] MEDS ORDERED: SODIUM CHLORIDE 0.9% 1,000 ML IV STA (09:17)
[2022-12-25 09:34] LABS: BASOPHILS # (AUTO) 0.1 10^3/uL (0.0-0.1); BASOPHILS % (AUTO) 2.2 %; EOSINOPHILS # (AUTO) 0.1 10^3/uL (0.0-0.7); HCT - HEMATOCRIT 35.8 % (42.0-52.0); LYMPHOCYTES # (AUTO) 1.3 10^3/uL (1.5-3.5); LYMPHOCYTES % (AUTO) 25.8 %; MEAN CORPUSCULAR HEMOGLOBIN 34.6 pg (27.0-31.0); MEAN CORPUSCULAR HGB CONC 33.5 g/dL (32.0-36.0); MEAN CORPUSCULAR VOLUME 103.2 fL (80.0-94.0); MEAN PLATELET VOLUME 10.2 fL (7.4-11.4); NEUTROPHILS # (AUTO) 2.5 10^3/uL (1.5-6.6); NEUTROPHILS % (AUTO) 49.4 %; PLT - PLATELET COUNT 191 10^3/uL (130-450); RED BLOOD COUNT 3.47 10^6/uL (4.70-6.10); RED CELL DISTRIBUTION WIDTH 12.4 % (12.0-15.0)
--- NOTE | 2022-12-25 09:36 | ED Physician Documentation ---
PD HPI CHEST PAIN - Stated complaint Stated Complaint: CP - Chief complaint Chief Complaint: Cardiac - History obtained from History obtained from: Patient, EMS - Additional information Additional information: The patient comes to the emergency department chief complaint of chest pain. He is not exactly clear when it started, stating at first that it started yesterday but then stating that he had no chest pain yesterday and he woke up with it today. The patient resides at an assisted living facility and Apparently took a fall yesterday. He sustained a skin tear to his right arm but states he has had no trouble moving the arm and no pain other than some soreness over the broken skin. He does not recall whether he hit his ribs or chest when he fell. He denies any difficulty breathing or pain with inspiration, but staff found him to be coming out of his room this morning, holding his chest and stating that her. Patient's not really sure how long the pain lasted. He states he woke up with it and that now, there is hardly any pain at all. He denies any nausea. No radiation of the pain. He states that he has a history of A-fib. No other heart problems that he knows of. He denies any other complaints at this time. PD PAST MEDICAL HISTORY - Past Medical History Past Medical History: Yes Cardiovascular: Congestive heart failure, Hypertension, High cholesterol, Atrial fibrillation Respiratory: None Neuro: None Endocrine/Autoimmune: None GI: None : Benign prostate hypertrophy HEENT: None Psych: Depression, Anxiety Musculoskeletal: Gout Derm: None - Past Surgical History Past Surgical History: No - Present Medications Home Medications: Ambulatory Orders Medication Instructions Recorded Confirmed Acetaminophen [Tylenol] 500 mg PO Q4HR PRN 12/25/22 12/25/22 Cyanocobalamin (Vitamin B-12) 1,000 mcg PO DAILY 12/25/22 12/25/22 [Vitamin B-12] Folic Acid 1 mg PO DAILY 12/25/22 12/25/22 LORazepam [Ativan] 0.5 mg PO Q6H PRN 12/25/22 12/25/22 Lactobacillus Combination No.4 1 each PO DAILY 12/25/22 12/25/22 [Probiotic] Metoprolol Succinate [Toprol Xl] 25 mg PO DAILY 12/25/22 12/25/22 Multivitamin 1 each PO DAILY 12/25/22 12/25/22 - Allergies Allergies/Adverse Reactions: Allergies Allergy/AdvReac Type Severity Reaction Status Date / Time amoxicillin Allergy Unknown Verified 12/25/22 09:10 clindamycin Allergy Unknown Verified 12/25/22 09:10 Penicillins Allergy Unknown Verified 12/25/22 09:10 - Social History Does the pt smoke?: No Smoking Status: Never smoker Does the pt drink ETOH?: Yes Does the pt have substance abuse?: No - Immunizations Immunizations are current?: No - POLST Patient has POLST: No POLST Status: Full Code PD ED PE NORMAL - Vitals Vital signs reviewed: Yes - General General: No acute distress, Well developed/nourished, Other (Alert, somewhat forgetful but answers questions appropriately for the most part.) - HEENT HEENT: Atraumatic, PERRL, EOMI, Moist mucous membranes - Neck Neck: Supple, no meningeal sign - Cardiac Cardiac: RRR, No murmur, Strong equal pulses - Respiratory Respiratory: No respiratory distress, Clear bilaterally - Abdomen Abdomen: Soft, Non tender, Non distended - Derm Derm: Normal color, Warm and dry, No rash - Extremities Extremities: No deformity, No edema - Neuro Neuro: Other (Alert, moving all 4 extremities, grossly intact.) - Psych Psych: Normal mood, Normal affect - Free text exam Free text exam: No contusion, step-off, or crepitus of the chest wall. Some tenderness to palpation over the sternum but none over the ribs on either side. Results - Vitals Vitals: Vital Signs - 24 hr 12/25/22 12/25/22 12/25/22 09:10 09:34 12:05 Temperature 36.5 C Heart Rate 100 105 H 102 H Respiratory 16 17 16 Rate Blood Pressure 129/89 H 123/85 H 158/92 H O2 Saturation 99 98 96 Oxygen O2 Source Room air - EKG (time done) 0907 EKG releavant findings:: EKG personally interpreted by author of this note. Relevant findings are: Rate: Rate (enter#) (104) Rhythm: Atrial fibrillation [place]: Normal QRS: Normal Ischemia: Normal ST segments, Non specific changes Compare to prior EKG: Old EKG unavailable Computer interpretation: Agree with computer - Labs Labs: Laboratory Tests 06/21/23 06/21/23 06/21/23 09:28 09:28 09:28 WBC 5.0 RBC 3.47 L Hgb 12.0 L Hct 35.8 L MCV 103.2 H MCH 34.6 H MCHC 33.5 RDW 12.4 Plt Count 191 MPV 10.2 Neut # (Auto) 2.5 Lymph # (Auto) 1.3 L Holt # (Auto) 1.0 Eos # (Auto) 0.1 Baso # (Auto) 0.1 Absolute Nucleated RBC 0.00 Nucleated RBC % 0.0 PT 12.0 INR 1.1 Sodium 138 Potassium 4.8 Chloride 103 Carbon Dioxide 25 Anion Gap 10.0 BUN 16 Creatinine 1.0 Estimated GFR (MDRD) 73 L Glucose 100 Calcium 9.0 Total Bilirubin 1.2 H AST 47 H ALT 27 Alkaline Phosphatase 48 Troponin I High Sens Total Protein 7.0 Albumin 4.1 Globulin 2.9 Albumin/Globulin Ratio 1.4 Lipase 36 12/25/22 09:28 WBC RBC Hgb Hct MCV MCH MCHC RDW Plt Count MPV Neut # (Auto) Lymph # (Auto) Holt # (Auto) Eos # (Auto) Baso # (Auto) Absolute Nucleated RBC Nucleated RBC % PT INR Sodium Potassium Chloride Carbon Dioxide Anion Gap BUN Creatinine Estimated GFR (MDRD) Glucose Calcium Total Bilirubin AST ALT Alkaline Phosphatase Troponin I High Sens 5.4 Total Protein Albumin Globulin Albumin/Globulin Ratio Lipase PD Medical Decision Making - ED course Complexity details: reviewed results, re-evaluated patient, considered differential, d/w patient ED course: The patient had minimal complaints at this time. He was worked up with EKG, chest x-ray, and labs, Including CBC, ER abdominal panel, and troponin, all of which were unremarkable upon my review. I felt the patient was stable for discharge home. I am not sure what is causing his chest pain, but no emergent condition has been identified at this time. We have discussed the usual indica tions for follow-up and return. Departure - Departure Disposition: 01 Home, Self Care Clinical Impression: Chest pain Qualifiers: Chest pain type: unspecified Qualified Code(s): R07.9 - Chest pain, unspecified Condition: Stable Instructions: ED Chest Pain Atypical Unkn Cause Comments: There is no evidence of a serious condition causing your chest pain today. It is not clear what caused you to have the sensation, but since you have reported that it started yesterday, it is very possibly related to your fall. Your x-ray does not show any broken bones or any trauma to your lungs. Please follow-up with your primary doctor as needed. If you develop worse pain, coupled with shortness of breath or nausea, please return to the emergency department. Discharge Date/Time: 12/25/22 12:05
--- NOTE | 2022-12-25 09:39 | XRAY Report ---
PROCEDURE: Chest 1 View X-Ray INDICATIONS: chest pain TECHNIQUE: One view of the chest was acquired. COMPARISON: 12/05/2022 FINDINGS: Surgical changes and devices: None. Lungs and pleura: Low lung volumes and elevation of the left hemidiaphragm, as before. No dense cons olidation or pleural effusion. Mediastinum: Heart size is within normal limits. Bowel gas is prominent in the upper abdomen. Bones and chest wall: No suspicious bony lesions. Overlying soft tissues appear unremarkable. IMPRESSION: Low lung volumes limit evaluation. Elevation of left hemidiaphragm as before. No acute radiographic c hanges. Reviewed by: Cas Gabriel MD on 12/25/2022 9:37 AM PDT Approved by: Cas Gabriel MD on 12/25/2022 9:37 AM PDT Station ID: [id number]
[2022-12-25 09:42] LABS: INR 1.1 (0.8-1.2)
[2022-12-25 09:47] LABS: ALBUMIN 4.1 g/dL (3.2-5.5); ALBUMIN/GLOBULIN RATIO 1.4 (1.0-2.2); BILIRUBIN,TOTAL 1.2 mg/dL (0.2-1.0); POTASSIUM 4.8 mmol/L (3.5-5.0)
[2022-12-25 12:12] VITALS: BP 158/92
== END 2022-12-25 12:05 | disposition home or self-care (01) ==
LOC: EDUNIT# → ED 09:03
DX: R07.9 Chest pain, unspecified (principal); I11.0 Hypertensive heart disease with heart failure; I50.9 Heart failure, unspecified; I48.91 Unspecified atrial fibrillation; E78.00 Pure hypercholesterolemia, unspecified; Z79.899 Other long term (current) drug therapy
CPT/HCPCS: 36415; 80053; 83690; 84484; 85025; 85610; 93005; 99283; 99284

== ENCOUNTER 2023-08-10 08:54 | Outpatient (CLI) | payer MEDICARE, OTHER | END 2023-08-10 23:59 | disposition EMS.NT | LOC: EMS 08:54 | DX: U07.1 COVID-19 (principal); R06.00 Dyspnea, unspecified ==

== ENCOUNTER 2023-11-07 21:30 | Inpatient (IN) | payer MEDICARE, OTHER ==
--- NOTE | 2023-11-07 22:14 | ED Physician Documentation ---
History of Present Illness - Stated complaint Stated Complaint: AMS - Chief complaint Chief Complaint: Neuro - History obtained from History obtained from: Patient - Additonal information Additional information: 77yM with pmh etoh dependence, DNR/DNI with limited interventions p/w likely heavy alcohol use today at [facility]. patient was found yelling by the elevators with an empty bottle of alcohol. he vomited several times en route and in the ED. patient is speaking in full sentences though unable or unwilling to give a history. PD PAST MEDICAL HISTORY - Past Medical History Cardiovascular: Congestive heart failure, Hypertension, High cholesterol, Atrial fibrillation Respiratory: None Neuro: Dementia Endocrine/Autoimmune: None GI: None : Benign prostate hypertrophy HEENT: None Psych: Depression, Anxiety Musculoskeletal: Gout Derm: None - Past Surgical History Past Surgical History: No - Present Medications Home Medications: Ambulatory Orders Medication Instructions Recorded Confirmed Acetaminophen [Tylenol] 500 mg PO Q4HR PRN 12/25/22 12/25/22 Cyanocobalamin (Vitamin B-12) 1,000 mcg PO DAILY 12/25/22 12/25/22 [Vitamin B-12] Folic Acid 1 mg PO DAILY 12/25/22 12/25/22 LORazepam [Ativan] 0.5 mg PO Q6H PRN 12/25/22 12/25/22 Lactobacillus Combination No.4 1 each PO DAILY 12/25/22 12/25/22 [Probiotic] Metoprolol Succinate [Toprol Xl] 25 mg PO DAILY 12/25/22 12/25/22 Multivitamin 1 each PO DAILY 12/25/22 12/25/22 - Allergies Allergies/Adverse Reactions: Allergies Allergy/AdvReac Type Severity Reaction Status Date / Time amoxicillin Allergy Unknown Verified 12/25/22 09:10 clindamycin Allergy Unknown Verified 12/25/22 09:10 Penicillins Allergy Unknown Verified 12/25/22 09:10 - Social History Does the pt smoke?: No Smoking Status: Never smoker Does the pt drink ETOH?: Yes ETOH Use: Liquor Does the pt have substance abuse?: No - Immunizations Immunizations are current?: No - POLST Patient has POLST: No POLST Status: Full Code PD ED PE NORMAL - Vitals Vital signs reviewed: Yes - General General: Other (elderly appearing) - HEENT HEENT: Atraumatic, PERRL, EOMI - Neck Neck: Supple, no meningeal sign - Cardiac Cardiac: Other (tachycardic rate, regular rhythm) - Respiratory Respiratory: No respiratory distress, Clear bilaterally - Derm Derm: Normal color, Warm and dry - 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, No motor deficit, No sensory deficit, Other (slurred speech) Eye Opening: Spontaneous Motor: Obeys Commands Verbal: Confused GCS Score: 14 Results - Vitals Vitals: Vital Signs - 24 hr 11/07/23 11/07/23 11/07/23 21:48 21:51 23:00 Temperature 36.9 C Heart Rate 77 108 H 93 Respiratory 19 20 18 Rate Blood Pressure 168/154 H 193/114 H 186/109 H O2 Saturation 92 95 98 If not protocol 4 4 : Oxygen Flow, liters/minute 11/08/23 11/08/23 00:00 00:15 Temperature Heart Rate 106 H 93 Respiratory 18 18 Rate Blood Pressure 159/112 H 182/109 H O2 Saturation 90 L 92 If not protocol : Oxygen Flow, liters/minute Oxygen O2 Source Room air - Labs Labs: Laboratory Tests 11/07/23 11/07/23 11/07/23 22:20 22:20 22:28 WBC 7.1 RBC 3.43 L Hgb 11.0 L Hct 33.5 L MCV 97.7 H MCH 32.1 H MCHC 32.8 RDW 14.6 Plt Count 214 MPV 10.1 Neut # (Auto) 4.9 Lymph # (Auto) 1.2 L [place] # (Auto) 0.7 Eos # (Auto) 0.3 Baso # (Auto) 0.1 Absolute Nucleated RBC 0.00 Nucleated RBC % 0.0 Sodium 140 Potassium 4.0 Chloride 106 Carbon Dioxide 24 Anion Gap 10.0 BUN 22 H Creatinine 1.2 Estimated GFR (MDRD) 59 L Glucose 135 H Calcium 9.5 Magnesium 1.5 L Total Bilirubin 0.5 AST 23 ALT 13 Alkaline Phosphatase 60 Total Creatine Kinase 69 Total Protein 7.2 Albumin 4.3 Globulin 2.9 Albumin/Globulin Ratio 1.5 Lipase 33 TSH 0.59 Urine Color YELLOW Urine Clarity CLEAR Urine pH 6.0 Ur Specific [place] 1.025 Urine Protein NEGATIVE Urine Glucose (UA) NEGATIVE Urine Ketones NEGATIVE Urine Occult Blood NEGATIVE Urine Nitrite NEGATIVE Urine Bilirubin NEGATIVE Urine Urobilinogen 0.2 (NORMAL) Ur Leukocyte Esterase NEGATIVE Ur Microscopic Review NOT INDICATED Urine Culture Comments NOT INDICATED Salicylates < 1.5 Urine Opiates Screen NEGATIVE Ur Buprenorphine Scrn NEGATIVE Ur Oxycodone Screen NEGATIVE Urine Methadone Screen NEGATIVE Acetaminophen 0.1 Ur Barbiturates Screen NEGATIVE Ur Tricyclics Screen NEGATIVE Ur Phencyclidine Scrn NEGATIVE Ur Amphetamine Screen NEGATIVE U Methamphetamines Scrn NEGATIVE U Benzodiazepines Scrn NEGATIVE Urine Cocaine Screen NEGATIVE U Cannabinoids Screen NEGATIVE Ur Drug Screen Comment CUTOFF CONC BELOW: Ethyl Alcohol < 10.0 PD Medical Decision Making - ED course ED course: 77yM DNR/DNI with limited interventions p/w AMS from [facility], found with empty alcohol bottle agitated and vomiting. He is unable to give a history here in the ED and is anxious/agitated appearing. Im zyprexa provided voluntarily, not as a chemical restraint. This was given for anxiolysis, aiding in lab draw, medication administration and facilitating care. IV zofran provided with improvement in n/v. Patient does not appear to have focal neuro deficits and given his DNR/limited intervention status, and overall clinical picture leaning toward alcohol intoxication, we will gear more toward treating symptomatically rather than pursuing stroke workup. Since etoh was negative head CT was ordered to evaluate for intracranial pathology. wet read is negative, but I do see areas of likely old stroke. Without known time of onset patient is not a candidate for tPA. I attempted calling his who is next of kin and was unable to get in touch. Per nicolette he is DNR/DNI with limited interventions and therefore unlikely to be tPA candidate even if this is indeed a stroke. Patient reportedly has history of similar episodes of confusion and is speaking in complete sentences albeit with garbled speech. He does not have acute neuro deficits otherwise, is moving all extremities with equal strength, and has no evidence of facial droop. at bedside now - she states he has history of developing dementia but is normally compliant with ADLs. He has longstanding alcohol dependence and normally gets his alcohol at the store on fridays but possibly was unable to obtain today. She reports he was behaving in a confused manner yesterday. She w as on the phone with him tonight for 10 minutes around 8:30pm and he was speaking normally and then began to yell without apparent inciting cause so she called [facility] and requested they bring him to the emergency department for evaluation. After discussion of goals of care she agreed that patient's wish is to be DNR/DNI with limited interventions. Shared decision made not to pursue tPA or thrombectomy for stroke given his wish of DNR/DNI with limited interventions as well as possibility this is in fact metabolic encephalopathy, possibly 2/2 alcohol withdrawal. Plan was to admit to telehealth hospitalist overnight for metabolic encephalopathy and alcohol withdrawal but no beds are available therefore I will endorse to incoming daytime ED MD at 7am shift change. Departure - Departure Clinical Impression: Alcohol dependence, Encephalopathy, AMS (altered mental status) Condition: Fair Forms: PCP List
[2023-11-07] MEDS: ONDANSETRON 4 MG/2 ML VIAL IVP STA (22:25)
[2023-11-07] MEDS: OLANZapine 10 MG VIAL IM STA (22:25)
[2023-11-07 22:33] LABS: BASOPHILS # (AUTO) 0.1 10^3/uL (0.0-0.1); BASOPHILS % (AUTO) 0.8 %; EOSINOPHILS # (AUTO) 0.3 10^3/uL (0.0-0.7); EOSINOPHILS % (AUTO) 3.5 %; HCT - HEMATOCRIT 33.5 % (42.0-52.0); LYMPHOCYTES # (AUTO) 1.2 10^3/uL (1.5-3.5); LYMPHOCYTES % (AUTO) 17.3 %; MEAN CORPUSCULAR HEMOGLOBIN 32.1 pg (27.0-31.0); MEAN CORPUSCULAR HGB CONC 32.8 g/dL (32.0-36.0); MEAN CORPUSCULAR VOLUME 97.7 fL (80.0-94.0); MEAN PLATELET VOLUME 10.1 fL (7.4-11.4); MONOCYTES # (AUTO) 0.7 10^3/uL (0.0-1.0); MONOCYTES % (AUTO) 9.7 %; NEUTROPHILS # (AUTO) 4.9 10^3/uL (1.5-6.6); NEUTROPHILS % (AUTO) 68.3 %; PLT - PLATELET COUNT 214 10^3/uL (130-450); RED BLOOD COUNT 3.43 10^6/uL (4.70-6.10); RED CELL DISTRIBUTION WIDTH 14.6 % (12.0-15.0); WHITE BLOOD COUNT 7.1 x10^3/uL (4.8-10.8)
[2023-11-07 22:38] LABS: BILIRUBIN,URINE NEGATIVE (NEGATIVE); GLUCOSE, URINE (UA) NEGATIVE (NEGATIVE); KETONES,URINE (UA) NEGATIVE (NEGATIVE); LEUKOCYTE ESTERASE, URINE NEGATIVE (NEGATIVE); NITRITE,URINE NEGATIVE (NEGATIVE); OCCULT BLOOD,URINE NEGATIVE (NEGATIVE); PROTEIN,URINE NEGATIVE (NEGATIVE); UROBILINOGEN,URINE 0.2 (NORMAL) E.U./dL (NORMAL)
[2023-11-07 22:50] LABS: AMPHETAMINE SCREEN,URINE NEGATIVE (NEGATIVE); BARBITURATE SCREEN,UR NEGATIVE (NEGATIVE); BENZODIAZEPINES SCREEN, URINE NEGATIVE (NEGATIVE); BUPRENORPHINE SCREEN, URINE NEGATIVE (NEGATIVE); CLARITY,URINE CLEAR (CLEAR); COCAINE SCREEN URINE NEGATIVE (NEGATIVE); METHADONE SCREEN, URINE NEGATIVE (NEGATIVE); METHAMPHETAMINES SCREEN, URINE NEGATIVE (NEGATIVE); OPIATE SCREEN, URINE NEGATIVE (NEGATIVE); OXYCODONE SCREEN, URINE NEGATIVE (NEGATIVE); THC CANNABINOID SCREEN, URINE NEGATIVE (NEGATIVE); TRICYCLIC ANTIDEPRESSANT,URINE NEGATIVE (NEGATIVE)
[2023-11-07 22:53] LABS: ACETAMINOPHEN 0.1 ug/mL; ALBUMIN 4.3 g/dL (3.2-5.5); ALBUMIN/GLOBULIN RATIO 1.5 (1.0-2.2); ALKALINE PHOSPHATASE 60 IU/L (42-121); ALT ALANINE AMINOTRANSFERASE 13 IU/L (10-60); AST ASPARTATE AMINOTRANSFERASE 23 IU/L (10-42); BILIRUBIN,TOTAL 0.5 mg/dL (0.2-1.0); BUN - BLOOD UREA NITROGEN 22 mg/dL (6-20); CALCIUM 9.5 mg/dL (8.5-10.3); CARBON DIOXIDE - CO2 24 mmol/L (21-32); CHLORIDE 106 mmol/L (101-111); CK- CREATINE KINASE 69 IU/L (30-223); CREATININE 1.2 mg/dL (0.6-1.3); ETOH - ETHANOL < 10.0 mg/dL; GFR - MDRD 59 (>89); GLUCOSE 135 mg/dL (74-104); LIPASE 33 U/L (11-82); MAGNESIUM 1.5 mg/dL (1.7-2.3); SODIUM 140 mmol/L (135-145); TOTAL PROTEIN 7.2 g/dL (6.4-8.9)
[2023-11-07 22:57] LABS: SALICYLATE < 1.5 mg/dL
[2023-11-07 23:02] LABS: THYROID STIMULATING HORMONE 0.59 uIU/mL (0.34-5.60)
--- NOTE | 2023-11-08 00:37 | CT Report ---
PROCEDURE: Head WO INDICATIONS: ams TECHNIQUE: Noncontrast 4.5 mm thick angled axial sections acquired from the foramen magnum to the vertex. For r adiation dose reduction, the following was used: automated exposure control, adjustment of mA and/or kV according to patient size. COMPARISON: CT head 09/04/2021, 08/29/2020 FINDINGS: Image quality: Significant motion is present markedly limiting evaluation. The ventricular system and cortical sulci demonstrate atrophy, consistent for patient's stated age. There are areas of hypodensity in the periventricular and subcortical white matter. There is no acut e intra or extra-axial fluid collection. No acute hemorrhage, mass lesion or midline shift. Brainst em is unremarkable. Globes are symmetrical. Sinuses are aerated. Osseous structures are intact. IMPRESSION: Markedly limited exam secondary to motion. No gross acute intracranial process. Reviewed by: Shayy Aponte MD on 11/08/2023 12:35 AM PDT Approved by: Shayy Aponte MD on 11/08/2023 12:35 AM PDT Station ID: [id number]
[2023-11-08] MEDS ORDERED: THIAMINE 100 MG/1 ML 2 ML MDV ONE (00:56)
[2023-11-08] MEDS: THIAMINE INJ 400 MG in SODIUM CHLORIDE 0.9% 50 ML IV STA (00:57)
[2023-11-08] MEDS: LORazepam 2 MG/ML VIAL IVP STA ×3 (01:38→03:16)
[2023-11-08] MEDS: MAGNESIUM SULFATE 2 GRAM 2 GM/50 ML BAG IV ONE (01:39)
[2023-11-08] MEDS: METOPROLOL 5 MG/5 ML VIAL IVP STA (03:18)
[2023-11-08] MEDS: LORazepam 2 MG/ML VIAL IVP PRN (04:25)
--- NOTE | 2023-11-08 11:23 | ED Physician Documentation ---
ED Addendum - Addendum Addendum: 11/08/23 11:18 Garrett Parada is a 77-year-old male left in my care at shift change anticipating admission to the hospital for treatment of acute alcohol withdrawal. He has required multiple doses of Ativan throughout the night and this morning with CIWA scores of 22-26. He does have improvement in his blood pressure and symptoms with treatment. He has previously had atrial fibrillation with rapid ventricular response associated with alcohol withdrawal. . He is withdrawn and reportedly has altered mental status. He has developing dementia but is in assisted living. History from by night ED physician is regular alcohol use. The patient is not giving history. From he is DNR, DNI and additional treatments including treatment for acute stroke were discussed and rejected. He is in assisted living drinks on a regular basis and has stopped 3 days ago. I have reviewed Dr. Thomas's notes and agree with her assessment and treatment. He has been given IV magnesium, thiamine and metoprolol as well as multiple doses of ativan. (total of 11mg in past 9 hours)Dr. Kemp is consulted in the case and graciously agrees to admission of the patient to the CCU for continued care. 11/08/23 11:23 11/08/23 11:29 11/08/23 16:32 Departure - Departure Disposition: 66 [facility] DC/Xfer Clinical Impression: Alcohol dependence, Encephalopathy, AMS (altered mental status), Alcohol withd gen delirium, acute, hyperactive Condition: Fair Discharge Date/Time: 11/08/23 13:52
[2023-11-08] MEDS ORDERED: SODIUM CHLORIDE FLUSH 0.9% 10 ML SYRINGE IVP PRN (13:12)
[2023-11-08] MEDS ORDERED: diazePAM INJ 5 MG/ML SYRINGE IVP PRN (13:49)
[2023-11-08] MEDS ORDERED: diazePAM 5 MG TABLET PO PRN (13:56)
[2023-11-08 14:09] LABS: BASOPHILS # (AUTO) 0.1 10^3/uL (0.0-0.1); BASOPHILS % (AUTO) 0.7 %; EOSINOPHILS # (AUTO) 0.2 10^3/uL (0.0-0.7); EOSINOPHILS % (AUTO) 2.2 %; HCT - HEMATOCRIT 34.2 % (42.0-52.0); HGB - HEMOGLOBIN 10.9 g/dL (14.0-18.0); LYMPHOCYTES # (AUTO) 1.1 10^3/uL (1.5-3.5); LYMPHOCYTES % (AUTO) 13.3 %; MEAN CORPUSCULAR HEMOGLOBIN 31.1 pg (27.0-31.0); MEAN CORPUSCULAR HGB CONC 31.9 g/dL (32.0-36.0); MEAN CORPUSCULAR VOLUME 97.7 fL (80.0-94.0); MEAN PLATELET VOLUME 9.5 fL (7.4-11.4); MONOCYTES # (AUTO) 0.9 10^3/uL (0.0-1.0); MONOCYTES % (AUTO) 10.3 %; NEUTROPHILS # (AUTO) 6.2 10^3/uL (1.5-6.6); NEUTROPHILS % (AUTO) 73.1 %; PLT - PLATELET COUNT 185 10^3/uL (130-450); RED CELL DISTRIBUTION WIDTH 14.4 % (12.0-15.0); WHITE BLOOD COUNT 8.5 x10^3/uL (4.8-10.8)
[2023-11-08 14:18] LABS: VBG PH 7.337 (7.31-7.41)
[2023-11-08 14:19] LABS: CALCIUM, IONIZED 1.17 mmol/L (1.15-1.33)
[2023-11-08 14:30] LABS: MAGNESIUM 1.9 mg/dL (1.7-2.3); POTASSIUM 4.1 mmol/L (3.5-4.5)
[2023-11-08] MEDS: METOPROLOL 5 MG/5 ML VIAL IVP SCH (18:59)
[2023-11-08] MEDS: SODIUM CHLORIDE FLUSH 0.9% 10 ML SYRINGE IVP SCH (18:59)
[2023-11-08] MEDS: LACTATED RINGERS 1,000 ML IV SCH (20:02)
--- NOTE | 2023-11-08 22:16 | HISTORY & PHYSICAL EXAMINATION ---
Chief Complaint - Chief Complaint Chief Complaint: Altered mental status History of Present Illness - Admitted From Admitted From:: Emergency Room - History Obtained From Records Reviewed: Yes History obtained from: Emergency Room Physician Dr. Duran and patient's , Marge Parada - History of Present Illness HPI Comment/Other: Garrett Parada is a 77-year-old man who lives in an assisted living facility. According to his he usually buys alcohol on Friday night and drinks it Friday, Friday, Friday, Friday and then does not drink Friday or . In his assisted living facility, he was found yelling by the elevators. He vomited several times en route to the emergency department and upon arrival in the emergency room was speaking in full sentences. He was not able to give a history in the emergency room. A CT scan of the head was performed in the emergency room which was read as negative. In the emergency room he was moving all 4 extremities with equal strength. His reports that the patient has significant memory problems and most likely has dementia. Patient is currently unable to make his own decisions and per his , he is DO NOT RESUSCITATE. The patient remained in the emergency room and reportedly became agitated with CIWA scores of 2226. He received multiple doses of lorazepam in the emergency room. History - Past Medical History Cardiovascular: reports: Congestive heart failure, Hypertension, High cholesterol, Atrial fibrillation Respiratory: reports: None Neuro: reports: Dementia Endocrine/Autoimmune: reports: None GI: reports: None : reports: Benign prostate hypertrophy HEENT: reports: None Psych: reports: Depression, Anxiety Musculoskeletal: reports: Gout Derm: reports: None MRSA Hx?: No - Family & Social History Family History Comment/Other: His mother had lung cancer. His father had an AK. Sister had rheumatoid arthritis and patient reports that she "from her medications." He has two daughters who are alive and well. Living Situation: Alone Social History Notes: He lived at home with his until March 2021 when she went to [place] to help care for their grandchild. He currently lives at home alone. 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 He smoked 1 pack a day for 38 years. He quit smoking in 2003. He reports drinking 3 to 4 glasses of wine daily. He does not use any recreational substances. He is independent of activities of daily living. He has a walker but does not use it, ambulates normally without assistance. - POLST Patient has POLST: No POLST Status: Full Code Meds/Allgy - Home Medications Home Medications: Ambulatory Orders Medication Instructions Recorded Confirmed Acetaminophen [Tylenol] 500 mg PO Q4HR PRN 12/25/22 11/08/23 Cyanocobalamin (Vitamin B-12) 1,000 mcg PO DAILY 12/25/22 11/08/23 [Vitamin B-12] Folic Acid 1 mg PO DAILY 12/25/22 11/08/23 LORazepam [Ativan] 0.5 mg PO Q6H PRN 12/25/22 11/08/23 Lactobacillus Combination No.4 1 each PO DAILY 12/25/22 11/08/23 [Probiotic] Metoprolol Succinate [Toprol Xl] 25 mg PO DAILY 12/25/22 11/08/23 Multivitamin 1 each PO DAILY 12/25/22 11/08/23 Diclofenac Sodium 1% Gel [Voltaren 2 gm TOP QID PRN 11/08/23 11/08/23 Gel] HYDROcod/ACETAM 5/325 [Stearns 5/325] 1 tab PO Q6HR PRN 11/08/23 11/08/23 Neomycn/Bacitrc/Polymyx/Pramox 1 appful TP PRN PRN 11/08/23 11/08/23 [Triple Antibiotic Plus Oint] Omeprazole 20 mg PO DAILY 11/08/23 11/08/23 - Allergies Allergies/Adverse Reactions: Allergies Allergy/AdvReac Type Severity Reaction Status Date / Time amoxicillin Allergy Unknown Verified 12/25/22 09:10 clindamycin Allergy Unknown Verified 12/25/22 09:10 Penicillins Allergy Unknown Verified 12/25/22 09:10 Review of Systems - Constitutional Constitutional: reports: Other (Unable to obtain review of systems because patient is nonverbal at this time.) Exam - Vital Signs Vital Signs: Vital Signs x48h Temp Pulse Resp BP BP Pulse Ox O2 Flow Rate 11/08/23 21:00 98 20 152/116 H 96 2 11/08/23 20:21 155/100 H 11/08/23 20:00 36.8 C 86 23 162/98 H 96 2 11/08/23 19:00 89 14 161/99 H 100 2 11/08/23 18:59 147/106 H 11/08/23 18:00 85 13 175/102 H 97 2 11/08/23 17:00 82 12 156/99 H 97 2 11/08/23 16:00 36.8 C 103 H 23 158/117 H 95 2 11/08/23 15:00 77 12 170/95 H 98 2 - Physical Exam General Appearance: positive: No acute distress Eyes Bilateral: positive: Conjunctivae nml, Other (Pupils appear pinpoint bilaterally.) Neck: positive: Thyroid nml, No JVD Respiratory: positive: Other (Fair air exchange in all lung norris no wheezing no crackles.) Cardiovascular: positive: Other (Positive S1-S2 no extra heart sounds.) Abdomen: positive: Other (Soft nontender nondistended positive bowel sound) Extremities: positive: Other (No cyanosis no edema.) Neurologic/Psychiatric: positive: Other (Moving all 4 extremities. Unable to follow any commands at this time.) Conclusion/Plan - Problem List (1) Encephalopathy Conclusion/Plan: Etiology of patient's encephalopathy is not clear. He does not appear to be withdrawing from alcohol at this time. Altered mental status changes may be related to his underlying dementia, Warnicke's encephalopathy or another neurologic process. Continue to follow neurologic exams. Withhold sedation at this time. Banana bag at noon time tomorrow Fluid hydration with lactated Ringer's at 100 mL an hour (2) Hypertension Conclusion/Plan: Treat with IV metoprolol and hydralazine. (3) Goals of Care Conclusion/Plan: CODE STATUS after discussion with patient's , Marge Parada, the decision has been made for patient to be DO NOT RESUSCITATE. Per his Marge, the patient would only want limited interventions. - Lab Results Fish Bones: 11/08/23 13:43 11/08/23 14:00
[2023-11-09 04:33] LABS: BASOPHILS # (AUTO) 0.1 10^3/uL (0.0-0.1); BASOPHILS % (AUTO) 0.6 %; EOSINOPHILS # (AUTO) 0.1 10^3/uL (0.0-0.7); EOSINOPHILS % (AUTO) 0.9 %; HCT - HEMATOCRIT 33.4 % (42.0-52.0); HGB - HEMOGLOBIN 10.6 g/dL (14.0-18.0); LYMPHOCYTES # (AUTO) 0.7 10^3/uL (1.5-3.5); LYMPHOCYTES % (AUTO) 8.1 %; MEAN CORPUSCULAR HEMOGLOBIN 31.7 pg (27.0-31.0); MEAN CORPUSCULAR HGB CONC 31.7 g/dL (32.0-36.0); MEAN PLATELET VOLUME 10.4 fL (7.4-11.4); MONOCYTES # (AUTO) 0.8 10^3/uL (0.0-1.0); MONOCYTES % (AUTO) 8.6 %; NEUTROPHILS # (AUTO) 7.2 10^3/uL (1.5-6.6); NEUTROPHILS % (AUTO) 81.5 %; PLT - PLATELET COUNT 174 10^3/uL (130-450); RED BLOOD COUNT 3.34 10^6/uL (4.70-6.10); RED CELL DISTRIBUTION WIDTH 14.4 % (12.0-15.0); WHITE BLOOD COUNT 8.8 x10^3/uL (4.8-10.8)
[2023-11-09 04:54] LABS: MAGNESIUM 1.6 mg/dL (1.7-2.3)
[2023-11-09 05:00] LABS: CALCIUM 9.4 mg/dL (8.5-10.3); CREATININE 0.9 mg/dL (0.6-1.3); POTASSIUM 4.7 mmol/L (3.5-4.5)
[2023-11-09 05:01] LABS: CALCIUM, IONIZED 1.09 mmol/L (1.15-1.33); VBG PH 7.423 (7.31-7.41)
[2023-11-09] MEDS: ACETAMINOPHEN 1,000 MG/100 ML 1,000 MG/100 ML BAG IV ONE (05:22)
[2023-11-09] MEDS: hydrALAZINE INJ 20 MG/ML VIAL IVP PRN (05:40)
[2023-11-09] MEDS: MAGNESIUM SULFATE 2 GRAM 2 GM/50 ML BAG IV ONE (05:44)
--- NOTE | 2023-11-09 07:30 | XRAY Report ---
PROCEDURE: Chest 1V INDICATIONS: cough TECHNIQUE: One view of the chest was acquired. COMPARISON: 12/25/2022, 12/05/2022 FINDINGS: Surgical changes and devices: None. Lungs and pleura: Abnormal interstitial prominence can be seen, which is worst within the right uppe r lobe where there is mild confluent consolidation. Potential consolidation can be seen involving the left lower lobe. No pneumothorax is seen. No large pleural effusion can be seen. Mediastinum: Mediastinal contours appear normal. Heart size is moderately enlarged. Bones and chest wall: No suspicious bony lesions. Age-appropriate degenerative changes are seen. O verlying soft tissues appear unremarkable. IMPRESSION: Cardiomegaly with interstitial prominence. CHF is suspected. More confluent consolidations can be seen within the right upper lobe and the left lower lobe. Follow -up radiographs are recommended to resolution. If this does not resolve by plain film, then a follow- up chest CT would be recommended for further evaluation. Note: No significant discrepancy from the preliminary report. Reviewed by: Tez Hollins MD on 11/09/2023 6:29 AM MARCELINA Approved by: Tez Hollins MD on 11/09/2023 6:29 AM MARCELINA Station ID: [id number]
[2023-11-09] MEDS: ENOXAPARIN 40 MG/0.4 ML SYRINGE SUBQ SCH (08:43)
[2023-11-09] MEDS: CALCIUM GLUC 1,000MG/50ML-NACL 1,000 MG/50 ML BAG IV ONE (08:43)
--- NOTE | 2023-11-09 08:57 | PHARMACY PROGRESS NOTE ---
- Best Possible Medication History Admit Date and Time: 11/08/23 1312 Processed by: Pharmacy Medications reviewed in ED?: Yes Secondary Source(s): Facility MAR as ONLY source As the person ultimately responsible for medication therapy, providers are able to order a medication from an existing home medication list in [facility] via the "Reconcile Routine" prior to Confirmation of that medication by operations support representative. Such practice is discouraged except when the physician, in their clinical judgment, deems that a medical need exists for a medication without regard to previous use.
[2023-11-09] MEDS: MULTIVITAMIN 10 ML, THIAMINE INJ 100 MG, FOLIC ACID INJ 1 MG in SODIUM CHLORIDE 0.9% 1,... IV SCH (12:13)
--- NOTE | 2023-11-09 21:58 | PROVIDER PROGRESS NOTE ---
Assessment/Plan - Problem List (1) Encephalopathy Assessment/Plan: Etiology of patient's encephalopathy is not clear. He does not appear to be withdrawing from alcohol at this time. Altered mental status changes may be related to his underlying dementia, Warnicke's encephalopathy or another neurologic process. Continue to follow neurologic exams.His mental status continues to improve. His speech improved throughout the day. Withhold sedation at this time. Banana bag at noon time Daily Discontinue IV fluid. (2) Hypertension Conclusion/Plan: Treat with IV metoprolol and hydralazine. (3) Goals of Care Conclusion/Plan: CODE STATUS after discussion with patient's , Marge Parada, the decision has been made for patient to be DO NOT RESUSCITATE. Per his Marge, the patient would only want limited interventions. (4) Restraints Conclusion/Plan: He required restraints today because he was pulling off his oxygen.Serial reassessment - Current Meds Current Meds: Current Medications Generic Name Dose Route Start Last Admin Trade Name Freq PRN Reason Stop Dose Admin Enoxaparin Sodium 40 mg 11/09/23 09:00 11/09/23 08:43 Enoxaparin 40 Mg/0.4 Ml Syringe SUBQ 40 mg DAILY CHAPARRO Administration Hydralazine HCl 10 mg 11/08/23 18:52 11/09/23 05:40 Hydralazine Inj 20 Mg/Ml Vial IVP 11/10/23 18:51 10 mg Q4H PRN Administration Hypertension Multivitamins 10 ml/ Thiamine 1,011.2 mls @ 100 mls/hr 11/09/23 12:00 11/09/23 12:13 HCl 100 mg/ Folic Acid 1 mg/ IV 100 mls/hr Sodium Chloride DAILY@1200 CH[facility]ARRO Administration Metoprolol Tartrate 5 mg 11/08/23 19:00 11/09/23 18:10 Metoprolol 5 Mg/5 Ml Vial IVP 11/10/23 18:59 5 mg Q4H CH[facility]ARRO Administration Sodium Chloride 10 ml 11/08/23 17:00 11/09/23 15:24 Sodium Chloride Flush 0.9% 10 Ml Syringe IVP 10 ml 0100,0900,1700 CHAPARRO Administration - Lab Result Fish Bone Diagrams: 11/09/23 04:24 11/09/23 04:24 - Additional Planning My Orders: My Active Orders 11/08/23 22:20 Neuro Check [RC] Q2HR 11/09/23 07:30 NonViolent Restraint(s) Q24H 11/09/23 09:00 Enoxaparin [Lovenox] 40 mg SUBQ DAILY 11/09/23 09:07 Restraint(s) Assessment [RC] Q90M 11/09/23 12:00 Multivitamin [Infuvite] 10 ml Thiamine Inj [Vitamin B-1 Inj] 100 mg Folic Acid Inj [Folic Acid] 1 mg Sodium Chloride 0.9% [Normal Saline 0.9%] 1,000 ml IV DAILY@1200 11/10/23 Breakfast Regular Diet [DIET] Subjective - Subjective Patient Reports: Other (Alert today. Answering some questions. Speech is garbled and difficult to understand.) Objective Vital Signs: Vital Signs - 24 hr 11/08/23 11/08/23 11/08/23 22:00 22:30 23:00 Temperature 36.3 C L 37.2 C Heart Rate [ 103 H 93 Monitoring electrodes] Respiratory 20 18 Rate Blood Pressure 157/98 H Blood Pressure 157/98 H 153/102 H [Left Brachial artery] O2 Saturation 96 98 If not protocol 2 2 : Oxygen Flow, liters/minute 11/09/23 11/09/23 11/09/23 00:00 01:00 02:00 Temperature 37.3 C Heart Rate [ 98 98 97 Monitoring electrodes] Respiratory 21 15 15 Rate Blood Pressure Blood Pressure 157/105 H 155/99 H 139/95 H [Left Brachial artery] O2 Saturation 97 95 95 If not protocol 2 2 2 : Oxygen Flow, liters/minute 11/09/23 11/09/23 11/09/23 03:00 03:27 04:00 Temperature 38 C H Heart Rate [ 97 91 Monitoring electrodes] Respiratory 15 14 Rate Blood Pressure 157/117 H Blood Pressure 157/117 H 159/114 H [Left Brachial artery] O2 Saturation 96 95 If not protocol 2 2 : Oxygen Flow, liters/minute 11/09/23 11/09/23 11/09/23 05:00 05:45 05:50 Temperature Heart Rate [ 97 Monitoring electrodes] Respiratory 16 Rate Blood Pressure Blood Pressure 171/95 H 141/86 H 142/77 H [Left Brachial artery] O2 Saturation 94 If not protocol 2 : Oxygen Flow, liters/minute 05/11/2711/09/23 11/09/23 05:55 06:00 06:14 Temperature 37.7 C Heart Rate [ 83 Monitoring electrodes] Respiratory 14 Rate Blood Pressure Blood Pressure 121/71 120/73 115/71 [Left Brachial artery] O2 Saturation 95 If not protocol 2 : Oxygen Flow, liters/minute 11/09/23 11/09/23 11/09/23 06:30 06:45 07:00 Temperature Heart Rate [ Monitoring electrodes] Respiratory 15 Rate Blood Pressure 129/94 H Blood Pressure 130/81 H 137/90 H [Left Brachial artery] O2 Saturation 96 If not protocol 2 : Oxygen Flow, liters/minute 11/09/23 11/09/23 11/09/23 07:02 08:00 09:00 Temperature 37.2 C Heart Rate [ 109 H 81 Monitoring electrodes] Respiratory 20 11 L Rate Blood Pressure 137/90 H Blood Pressure 140/93 H 130/81 H [Left Brachial artery] O2 Saturation 94 97 If not protocol 2 1 : Oxygen Flow, liters/minute 11/09/23 11/09/23 11/09/23 10:00 10:01 11:00 Temperature Heart Rate [ 97 93 Monitoring electrodes] Respiratory 17 16 Rate Blood Pressure Blood Pressure 145/91 H 139/72 H [Left Brachial artery] O2 Saturation 96 96 If not protocol 1 1 1 : Oxygen Flow, liters/minute 11/09/23 11/09/23 11/09/23 11:08 12:00 13:00 Temperature 37.3 C Heart Rate [ 89 80 Monitoring electrodes] Respiratory 11 L 17 Rate Blood Pressure 139/72 H Blood Pressure 143/82 H 127/86 H [Left Brachial artery] O2 Saturation 98 93 If not protocol 1 1 : Oxygen Flow, liters/minute 11/09/23 11/09/23 11/09/23 14:00 15:00 15:24 Temperature Heart Rate [ 88 80 Monitoring electrodes] Respiratory 13 15 Rate Blood Pressure 170/110 H Blood Pressure 153/93 H 170/110 H [Left Brachial artery] O2 Saturation 97 97 If not protocol 1 1 : Oxygen Flow, liters/minute 11/09/23 11/09/23 11/09/23 16:00 17:00 18:00 Temperature 36.7 C Heart Rate [ 88 90 84 Monitoring electrodes] Respiratory 16 18 15 Rate Blood Pressure Blood Pressure 167/118 H 176/118 H 146/90 H [Left Brachial artery] O2 Saturation 91 L 96 92 If not protocol : Oxygen Flow, liters/minute 11/09/23 11/09/23 11/09/23 18:10 19:00 19:35 Temperature Heart Rate [ 88 Monitoring electrodes] Respiratory 18 Rate Blood Pressure 146/90 H Blood Pressure 167/122 H [Left Brachial artery] O2 Saturation 89 L 96 If not protocol 2 : Oxygen Flow, liters/minute 11/09/23 11/09/23 20:00 21:00 Temperature 37.2 C 37.0 C Heart Rate [ 87 95 Monitoring electrodes] Respiratory 18 20 Rate Blood Pressure Blood Pressure 159/94 H 159/94 H [Left Brachial artery] O2 Saturation 95 95 If not protocol 2 2 : Oxygen Flow, liters/minute Oxygen O2 Source Nasal cannula Oxygen Flow Rate 2 I&O (Last 24 Hrs): Intake and Output Totals x24h 11/07/23 11/08/23 11/09/23 23:59 23:59 23:59 Intake Total 104 3172.667 Output Total 600 100 Balance -496 3072.667 General: Mild distress HEENT: Atraumatic Neck: Supple, No JVD, No thyromegaly Neuro: Alert, Non Focal Cardiovascular: Other (Positive S1-S2 no extra heart sounds.) Respiratory: Other (Good air exchange in all lung norris no wheezing no crackles.) Abdomen: Other (Soft nondistended positive bowel sounds) Extremities: No cyanosis, No edema Skin: No rashes - Results Results: Laboratory Results WBC 8.8 x10^3/uL (4.8-10.8) 11/09/23 04:24 RBC 3.34 10^6/uL (4.70-6.10) L 11/09/23 04:24 Hgb 10.6 g/dL (14.0-18.0) L 11/09/23 04:24 Hct 33.4 % (42.0-52.0) L 11/09/23 04:24 MCV 100.0 fL (80.0-94.0) H 11/09/23 04:24 MCH 31.7 pg (27.0-31.0) H 11/09/23 04:24 MCHC 31.7 g/dL (32.0-36.0) L 11/09/23 04:24 RDW 14.4 % (12.0-15.0) 11/09/23 04:24 Plt Count 174 10^3/uL (130-450) 11/09/23 04:24 MPV 10.4 fL (7.4-11.4) 11/09/23 04:24 Neut # (Auto) 7.2 10^3/uL (1.5-6.6) H 11/09/23 04:24 Lymph # (Auto) 0.7 10^3/uL (1.5-3.5) L 11/09/23 04:24 Dane # (Auto) 0.8 10^3/uL (0.0-1.0) 11/09/23 04:24 Eos # (Auto) 0.1 10^3/uL (0.0-0.7) 11/09/23 04:24 Baso # (Auto) 0.1 10^3/uL (0.0-0.1) 11/09/23 04:24 Absolute Nucleated RBC 0.00 x10^3/uL 11/09/23 04:24 Nucleated RBC % 0.0 /100WBC 11/09/23 04:24 VBG pH 7.423 (7.31-7.41) H 11/09/23 04:24 Ionized Calcium 1.09 mmol/L (1.15-1.33) L 11/09/23 04:24 Sodium 139 mmol/L (135-145) 11/09/23 04:24 Potassium 4.7 mmol/L (3.5-4.5) H 11/09/23 04:24 Chloride 107 mmol/L (101-111) 11/09/23 04:24 Carbon Dioxide 25 mmol/L (21-32) 11/09/23 04:24 Anion Gap 7.0 (6-13) 11/09/23 04:24 BUN 13 mg/dL (6-20) 11/09/23 04:24 Creatinine 0.9 mg/dL (0.6-1.3) 11/09/23 04:24 Estimated GFR (MDRD) 82 (>89) L 11/09/23 04:24 Glucose 97 mg/dL (74-104) 11/09/23 04:24 POC Whole Bld Glucose 98 mg/dL (70 - 100) 11/09/23 11:54 Calcium 9.4 mg/dL (8.5-10.3) 11/09/23 04:24 Phosphorus 3.0 mg/dL (2.5-5.0) 11/09/23 04:24 Magnesium 1.6 mg/dL (1.7-2.3) L 11/09/23 04:24 Total Bilirubin 0.5 mg/dL (0.2-1.0) 11/07/23 22:20 AST 23 IU/L (10-42) 11/07/23 22:20 ALT 13 IU/L (10-60) 11/07/23 22:20 Alkaline Phosphatase 60 IU/L (42-121) 11/07/23 22:20 Total Creatine Kinase 69 IU/L (30-223) 11/07/23 22:20 Total Protein 7.2 g/dL (6.4-8.9) 11/07/23 22:20 Albumin 4.3 g/dL (3.2-5.5) 11/07/23 22:20 Globulin 2.9 g/dL (2.1-4.2) 11/07/23 22:20 Albumin/Globulin Ratio 1.5 (1.0-2.2) 11/07/23 22:20 Lipase 33 U/L (11-82) 11/07/23 22:20 TSH 0.59 uIU/mL (0.34-5.60) 11/07/23 22:20 Urine Color YELLOW 11/07/23 22:28 Urine Clarity CLEAR (CLEAR) 11/07/23 22:28 Urine pH 6.0 PH (5.0-7.5) 11/07/23 22:28 Ur Specific [place] 1.025 (1.002-1.030) 11/07/23 22:28 Urine Protein NEGATIVE mg/dL (NEGATIVE) 11/07/23 22:28 Urine Glucose (UA) NEGATIVE mg/dL (NEGATIVE) 11/07/23 22:28 Urine Ketones NEGATIVE mg/dL (NEGATIVE) 11/07/23 22:28 Urine Occult Blood NEGATIVE (NEGATIVE) 11/07/23 22:28 Urine Nitrite NEGATIVE (NEGATIVE) 11/07/23 22:28 Urine Bilirubin NEGATIVE (NEGATIVE) 11/07/23 22:28 Urine Urobilinogen 0.2 (NORMAL) E.U./dL (NORMAL) 11/07/23 22:28 Ur Leukocyte Esterase NEGATIVE (NEGATIVE) 11/07/23 22:28 Ur Microscopic Review NOT INDICATED 11/07/23 22:28 Urine Culture Comments NOT INDICATED 11/07/23 22:28 Nasal Screen MRSA (PCR) NEGATIVE (NEGATIVE) 11/08/23 14:00 Salicylates < 1.5 mg/dL 11/07/23 22:20 Urine Opiates Screen NEGATIVE (NEGATIVE) 11/07/23 22:28 Ur Buprenorphine Scrn NEGATIVE (NEGATIVE) 11/07/23 22:28 Ur Oxycodone Screen NEGATIVE (NEGATIVE) 11/07/23 22:28 Urine Methadone Screen NEGATIVE (NEGATIVE) 11/07/23 22:28 Acetaminophen 0.1 ug/mL 11/07/23 22:20 Ur Barbiturates Screen NEGATIVE (NEGATIVE) 11/07/23 22:28 Ur Tricyclics Screen NEGATIVE (NEGATIVE) 11/07/23 22:28 Ur Phencyclidine Scrn NEGATIVE (NEGATIVE) 11/07/23 22:28 Ur Amphetamine Screen NEGATIVE (NEGATIVE) 11/07/23 22:28 U Methamphetamines Scrn NEGATIVE (NEGATIVE) 11/07/23 22:28 U Benzodiazepines Scrn NEGATIVE (NEGATIVE) 11/07/23 22:28 Urine Cocaine Screen NEGATIVE (NEGATIVE) 11/07/23 22:28 U Cannabinoids Screen NEGATIVE (NEGATIVE) 11/07/23 22:28 Ur Drug Screen Comment CUTOFF CONC BELOW: 11/07/23 22:28 Ethyl Alcohol < 10.0 mg/dL 11/07/23 22:20
[2023-11-10] MEDS: ACETAMINOPHEN 1,000 MG/100 ML 1,000 MG/100 ML BAG IV PRN (00:50)
[2023-11-10 07:53] LABS: CALCIUM, IONIZED 0.97 mmol/L (1.15-1.33); VBG PH 7.569 (7.31-7.41)
[2023-11-10 08:06] LABS: ALBUMIN 3.8 g/dL (3.2-5.5); ALBUMIN/GLOBULIN RATIO 1.5 (1.0-2.2); CALCIUM 9.2 mg/dL (8.5-10.3); CREATININE 0.8 mg/dL (0.6-1.3); MAGNESIUM 1.6 mg/dL (1.7-2.3); PHOSPHORUS 2.8 mg/dL (2.5-5.0); POTASSIUM 3.7 mmol/L (3.5-4.5); TOTAL PROTEIN 6.4 g/dL (6.4-8.9)
[2023-11-10] MEDS: MAGNESIUM OXIDE 400 MG TABLET PO SCH (08:11)
[2023-11-10 08:16] LABS: THYROID STIMULATING HORMONE 0.68 uIU/mL (0.34-5.60)
[2023-11-10] MEDS: POTASSIUM CHLORIDE 20 MEQ/15 ML UDC PO ONE (08:38)
[2023-11-10] MEDS: CALCIUM GLUCONATE IN NS 0.9% 2,000 MG/100 ML BAG IV ONE (08:52)
[2023-11-10 13:04] LABS: CALCIUM, IONIZED 1.18 mmol/L (1.15-1.33); VBG PH 7.469 (7.31-7.41)
[2023-11-10] MEDS: MAGNESIUM SULFATE 2 GRAM 2 GM/50 ML BAG IV ONE (13:32)
[2023-11-10] MEDS: POTASSIUM CHLORIDE 20 MEQ/15 ML UDC PO SCH (13:48)
[2023-11-10 20:20] LABS: POTASSIUM 3.7 mmol/L (3.5-4.5)
--- NOTE | 2023-11-10 22:08 | PROVIDER PROGRESS NOTE ---
Assessment/Plan - Problem List (1) Encephalopathy Assessment/Plan: Etiology of patient's encephalopathy is not clear. He does not appear to be withdrawing from alcohol at this time. Altered mental status changes may be related to his underlying dementia, Warnicke's encephalopathy or another neurologic process.Patient now having ocular dysfunction which is classic for Warnicke's and saw encephalopathy. Continue to follow neurologic exams.His mental status continues to improve. His speech improved throughout the day. Withhold sedation at this time. Transfer to the medical floor. (2) Hypertension Conclusion/Plan: Patient transition to p.o. metoprolol. (3) Goals of Care Conclusion/Plan: CODE STATUS after discussion with patient's , Marge Parada, the decision has been made for patient to be DO NOT RESUSCITATE. Per his Marge, the patient would only want limited interventions. - Current Meds Current Meds: Current Medications Generic Name Dose Route Start Last Admin Trade Name Freq PRN Reason Stop Dose Admin Enoxaparin Sodium 40 mg 11/09/23 09:00 11/10/23 09:56 Enoxaparin 40 Mg/0.4 Ml Syringe SUBQ Not Given DAILY [facility] Multivitamins 10 ml/ Thiamine 1,011.2 mls @ 100 mls/hr 11/09/23 12:00 11/10/23 18:48 HCl 100 mg/ Folic Acid 1 mg/ IV 11/11/23 11:59 100 mls/hr Sodium Chloride DAILY@1200 [facility]O Infusion Acetaminophen 1,000 mg in 100 mls @ 400 mls/hr 11/10/23 00:37 11/10/23 21:15 Acetaminophen IV Infused Q6HR PRN Infusion FEVER > 100.5 F Magnesium Oxide 400 mg 11/10/23 09:00 11/10/23 20:09 Magnesium Oxide 400 Mg Tablet PO 400 mg BID CH[facility]O Administration Sodium Chloride 10 ml 11/08/23 17:00 11/10/23 15:44 Sodium Chloride Flush 0.9% 10 Ml Syringe IVP 10 ml 0100,0900,1700 CH[facility]O Administration - Lab Result Fish Bone Diagrams: 11/09/23 04:24 11/10/23 19:56 - Additional Planning My Orders: My Active Orders 11/10/23 09:00 Magnesium Oxide [Mag Ox] 400 mg PO BID 11/10/23 Lunch Dysphagia - Soft and Bite Sized [DIET] 11/11/23 08:00 Vitamin [Trinatal Rx 1] 1 tab PO DAILYWM 11/11/23 09:00 Thiamine [Vitamin B-1] 100 mg PO DAILY Subjective - Subjective Patient Reports: Other (Patient sleeping most of the time. He does respond to questions intermittently. He does answer questions appropriately intermittently.) Objective Vital Signs: Vital Signs - 24 hr 11/09/23 11/09/23 11/10/23 23:00 23:06 00:00 Temperature 38.2 C H Heart Rate [ 91 100 Monitoring electrodes] Respiratory 20 22 Rate Blood Pressure 191/123 H Blood Pressure 174/108 H 153/99 H [Left Brachial artery] Blood Pressure [Right Brachial artery] O2 Saturation 95 95 If not protocol 2 2 : Oxygen Flow, liters/minute 11/10/23 11/10/23 11/10/23 00:30 01:00 02:00 Temperature Heart Rate [ 93 88 Monitoring electrodes] Respiratory 21 22 Rate Blood Pressure 145/97 H Blood Pressure 138/88 H 118/70 [Left Brachial artery] Blood Pressure [Right Brachial artery] O2 Saturation 94 95 If not protocol 2 2 : Oxygen Flow, liters/minute 11/10/23 11/10/23 11/10/23 03:00 03:30 04:00 Temperature 37.7 C Heart Rate [ 85 79 Monitoring electrodes] Respiratory 15 15 Rate Blood Pressure 159/87 H Blood Pressure 159/87 H 139/99 H [Left Brachial artery] Blood Pressure [Right Brachial artery] O2 Saturation 97 96 If not protocol 2 2 : Oxygen Flow, liters/minute 11/10/23 11/10/23 11/10/23 05:00 06:00 06:15 Temperature 36.9 C Heart Rate [ 89 83 Monitoring electrodes] Respiratory 15 14 Rate Blood Pressure 158/100 H Blood Pressure 125/91 H 158/100 H [Left Brachial artery] Blood Pressure [Right Brachial artery] O2 Saturation 96 98 If not protocol 2 2 : Oxygen Flow, liters/minute 11/10/23 11/10/23 11/10/23 07:00 08:00 09:00 Temperature 37.2 C Heart Rate [ 73 80 77 Monitoring electrodes] Respiratory 15 18 14 Rate Blood Pressure Blood Pressure 128/80 144/86 H 137/85 H [Left Brachial artery] Blood Pressure [Right Brachial artery] O2 Saturation 98 95 95 If not protocol 2 2 : Oxygen Flow, liters/minute 11/10/23 11/10/23 11/10/23 10:00 10:08 11:00 Temperature Heart Rate [ 85 72 Monitoring electrodes] Respiratory 16 13 Rate Blood Pressure 139/93 H Blood Pressure 139/93 H 171/96 H [Left Brachial artery] Blood Pressure [Right Brachial artery] O2 Saturation 97 97 If not protocol 1 : Oxygen Flow, liters/minute 11/10/23 11/10/23 11/10/23 11:11 11:32 12:00 Temperature 36.9 C Heart Rate [ 86 90 Monitoring electrodes] Respiratory 23 Rate Blood Pressure 163/105 H 134/72 H Blood Pressure 134/72 H 159/88 H [Left Brachial artery] Blood Pressure [Right Brachial artery] O2 Saturation 97 If not protocol 1 : Oxygen Flow, liters/minute 11/10/23 11/10/23 11/10/23 13:00 14:00 14:54 Temperature Heart Rate [ 79 87 Monitoring electrodes] Respiratory 14 17 Rate Blood Pressure 148/94 H Blood Pressure 139/87 H 156/98 H [Left Brachial artery] Blood Pressure [Right Brachial artery] O2 Saturation 96 97 If not protocol 1 1 : Oxygen Flow, liters/minute 11/10/23 11/10/23 11/10/23 15:00 16:00 17:00 Temperature 36.7 C Heart Rate [ 74 77 82 Monitoring electrodes] Respiratory 21 19 24 Rate Blood Pressure Blood Pressure 152/89 H [Left Brachial artery] Blood Pressure 151/85 H 167/103 H [Right Brachial artery] O2 Saturation 94 96 97 If not protocol 1 : Oxygen Flow, liters/minute 11/10/23 11/10/23 11/10/23 18:00 19:00 20:00 Temperature Heart Rate [ 80 87 81 Monitoring electrodes] Respiratory 17 19 13 Rate Blood Pressure Blood Pressure [Left Brachial artery] Blood Pressure 144/93 H 144/93 H 159/99 H [Right Brachial artery] O2 Saturation 95 93 96 If not protocol : Oxygen Flow, liters/minute 11/10/23 21:00 Temperature 37.0 C Heart Rate [ 91 Monitoring electrodes] Respiratory 20 Rate Blood Pressure Blood Pressure [Left Brachial artery] Blood Pressure 169/102 H [Right Brachial artery] O2 Saturation 95 If not protocol : Oxygen Flow, liters/minute Oxygen O2 Source Room air Oxygen Flow Rate 2 I&O (Last 24 Hrs): Intake and Output Totals x24h 11/08/23 11/09/23 11/10/23 23:59 23:59 23:59 Intake Total 104 4220.867 1640 Output Total 600 200 875 Balance -496 4020.867 765 General: Other (Somnolent) HEENT: Atraumatic Neck: Supple, No JVD Neuro: Other (Moving all 4 extremities. Muscle strength 5/5 in all 4 extremities.) Cardiovascular: Other (Positive S1-S2 no extra heart sounds) Respiratory: Other (Good air exchange in all lung norris no wheezing) Abdomen: Other (Soft nontender nondistended positive bowel sound) Extremities: No cyanosis, No edema Skin: No rashes - Results Results: Laboratory Results WBC 8.8 x10^3/uL (4.8-10.8) 11/09/23 04:24 RBC 3.34 10^6/uL (4.70-6.10) L 11/09/23 04:24 Hgb 10.6 g/dL (14.0-18.0) L 11/09/23 04:24 Hct 33.4 % (42.0-52.0) L 11/09/23 04:24 MCV 100.0 fL (80.0-94.0) H 11/09/23 04:24 MCH 31.7 pg (27.0-31.0) H 11/09/23 04:24 MCHC 31.7 g/dL (32.0-36.0) L 11/09/23 04:24 RDW 14.4 % (12.0-15.0) 11/09/23 04:24 Plt Count 174 10^3/uL (130-450) 11/09/23 04:24 MPV 10.4 fL (7.4-11.4) 11/09/23 04:24 Neut # (Auto) 7.2 10^3/uL (1.5-6.6) H 11/09/23 04:24 Lymph # (Auto) 0.7 10^3/uL (1.5-3.5) L 11/09/23 04:24 [place] # (Auto) 0.8 10^3/uL (0.0-1.0) 05/05/24 04:24 Eos # (Auto) 0.1 10^3/uL (0.0-0.7) 11/09/23 04:24 Baso # (Auto) 0.1 10^3/uL (0.0-0.1) 11/09/23 04:24 Absolute Nucleated RBC 0.00 x10^3/uL 11/09/23 04:24 Nucleated RBC % 0.0 /100WBC 11/09/23 04:24 VBG pH 7.469 (7.31-7.41) H 11/10/23 12:55 Ionized Calcium 1.18 mmol/L (1.15-1.33) 11/10/23 12:55 Sodium 136 mmol/L (135-145) 11/10/23 07:38 Potassium 3.7 mmol/L (3.5-4.5) 11/10/23 19:56 Chloride 105 mmol/L (101-111) 11/10/23 07:38 Carbon Dioxide 23 mmol/L (21-32) 11/10/23 07:38 Anion Gap 8.0 (6-13) 11/10/23 07:38 BUN 13 mg/dL (6-20) 11/10/23 07:38 Creatinine 0.8 mg/dL (0.6-1.3) 11/10/23 07:38 Estimated GFR (MDRD) 94 (>89) 11/10/23 07:38 Glucose 115 mg/dL (74-104) H 11/10/23 07:38 POC Whole Bld Glucose 98 mg/dL (70 - 100) 11/09/23 11:54 Calcium 9.2 mg/dL (8.5-10.3) 11/10/23 07:38 Phosphorus 2.8 mg/dL (2.5-5.0) 11/10/23 07:38 Magnesium 2.0 mg/dL (1.7-2.3) 11/10/23 19:56 Total Bilirubin 1.0 mg/dL (0.2-1.0) 11/10/23 07:38 AST 25 IU/L (10-42) 11/10/23 07:38 ALT 14 IU/L (10-60) 11/10/23 07:38 Alkaline Phosphatase 56 IU/L (42-121) 11/10/23 07:38 Total Creatine Kinase 69 IU/L (30-223) 11/07/23 22:20 Troponin I High Sens 9.3 ng/L (2.3-19.7) 11/10/23 19:56 Total Protein 6.4 g/dL (6.4-8.9) 11/10/23 07:38 Albumin 3.8 g/dL (3.2-5.5) 11/10/23 07:38 Globulin 2.6 g/dL (2.1-4.2) 11/10/23 07:38 Albumin/Globulin Ratio 1.5 (1.0-2.2) 11/10/23 07:38 Lipase 33 U/L (11-82) 11/07/23 22:20 TSH 0.68 uIU/mL (0.34-5.60) 11/10/23 07:38 Urine Color YELLOW 11/07/23 22:28 Urine Clarity CLEAR (CLEAR) 11/07/23 22:28 Urine pH 6.0 PH (5.0-7.5) 11/07/23 22:28 Ur Specific [place] 1.025 (1.002-1.030) 11/07/23 22:28 Urine Protein NEGATIVE mg/dL (NEGATIVE) 11/07/23 22:28 Urine Glucose (UA) NEGATIVE mg/dL (NEGATIVE) 11/07/23 22:28 Urine Ketones NEGATIVE mg/dL (NEGATIVE) 11/07/23 22:28 Urine Occult Blood NEGATIVE (NEGATIVE) 11/07/23 22:28 Urine Nitrite NEGATIVE (NEGATIVE) 11/07/23 22:28 Urine Bilirubin NEGATIVE (NEGATIVE) 11/07/23 22:28 Urine Urobilinogen 0.2 (NORMAL) E.U./dL (NORMAL) 11/07/23 22:28 Ur Leukocyte Esterase NEGATIVE (NEGATIVE) 11/07/23 22:28 Ur Microscopic Review NOT INDICATED 11/07/23 22:28 Urine Culture Comments NOT INDICATED 11/07/23 22:28 Nasal Screen MRSA (PCR) NEGATIVE (NEGATIVE) 11/08/23 14:00 Salicylates < 1.5 mg/dL 11/07/23 22:20 Urine Opiates Screen NEGATIVE (NEGATIVE) 11/07/23 22:28 Ur Buprenorphine Scrn NEGATIVE (NEGATIVE) 11/07/23 22:28 Ur Oxycodone Screen NEGATIVE (NEGATIVE) 11/07/23 22:28 Urine Methadone Screen NEGATIVE (NEGATIVE) 11/07/23 22:28 Acetaminophen 0.1 ug/mL 11/07/23 22:20 Ur Barbiturates Screen NEGATIVE (NEGATIVE) 11/07/23 22:28 Ur Tricyclics Screen NEGATIVE (NEGATIVE) 11/07/23 22:28 Ur Phencyclidine Scrn NEGATIVE (NEGATIVE) 11/07/23 22:28 Ur Amphetamine Screen NEGATIVE (NEGATIVE) 11/07/23 22:28 U Methamphetamines Scrn NEGATIVE (NEGATIVE) 11/07/23 22:28 U Benzodiazepines Scrn NEGATIVE (NEGATIVE) 11/07/23 22:28 Urine Cocaine Screen NEGATIVE (NEGATIVE) 11/07/23 22:28 U Cannabinoids Screen NEGATIVE (NEGATIVE) 11/07/23 22:28 Ur Drug Screen Comment CUTOFF CONC BELOW: 11/07/23 22:28 Ethyl Alcohol < 10.0 mg/dL 11/07/23 22:20
[2023-11-10] MEDS: METOPROLOL TARTRATE 25 MG TABLET PO SCH (23:20)
[2023-11-11] MEDS ORDERED: SODIUM CHLORIDE 0.65% NASAL SPRAY NAS PRN (00:22)
[2023-11-11] MEDS: PRENATAL VITAMIN TABLET PO SCH (07:49)
[2023-11-11] MEDS: THIAMINE 100 MG TABLET PO SCH (08:27)
[2023-11-11] MEDS: polyethylene glycoL 3350 17 GM PACKET PO SCH (08:27)
[2023-11-11] MEDS: ASPIRIN EC 81 MG TABLET PO SCH (08:42)
[2023-11-11] MEDS: lisinopriL 5 MG TABLET PO SCH (08:42)
[2023-11-11] MEDS: LORazepam 2 MG/ML VIAL IVP ONE ×2 (10:21→18:44)
[2023-11-11] MEDS: PROPRANOLOL 10 MG TABLET PO SCH (11:55)
[2023-11-11] MEDS ORDERED: ACETAMINOPHEN 325 MG TABLET PO PRN (15:49)
[2023-11-11] MEDS ORDERED: hydrALAZINE 10 MG TABLET PO PRN (15:55)
[2023-11-11] MEDS: hydrALAZINE INJ 20 MG/ML VIAL IVP PRN (16:26)
[2023-11-11] MEDS: OLANZapine 10 MG VIAL IM ONE (16:59)
--- NOTE | 2023-11-11 19:46 | MRI Report ---
PROCEDURE: Brain WO INDICATIONS: Evaluate for stroke in pt with abnormal neuro exam TECHNIQUE: Multiplanar multisequential MR images of the brain were obtained without contrast COMPARISON: 11/07/2023 CT FINDINGS: CSF Spaces: Obstruction of fourth ventricle results in developing hydrocephalus Brain: Large infarct centered in the left cerebellum with cerebral edema and midline shift effaces t he fourth ventricle resulting in developing hydrocephalus. Stippled blood products in the infarcted b ed reflects hemorrhagic component. Smaller infarcts noted in the right cerebellum as well as the dors al mackenzie. The distal left FINANCIAL ADMINISTRATIVE ASSISTANT territory is also involved in the left mesial temporal and occipital lob es. Skull and face: Calvarium has normal marrow signal. Orbits appear normal. Sinuses: Sinuses and mastoids are clear. IMPRESSION: Large infarct with hemorrhagic components centered on the left cerebellar hemisphere but also involvi ng the distal left FINANCIAL ADMINISTRATIVE ASSISTANT territory results in significant cerebral edema, effacement of the fourth vent ricle, and developing hydrocephalus with transependymal migration of CSF and enlargement of the third ventricle Note: Critical results were discussed with patient's nurse on the floor, Karen, on 11/11/2023 at 6:40 PM [place] time. Reviewed by: Orestes Villatoro MD on 11/11/2023 6:45 PM [facility] Approved by: Orestes Villatoro MD on 11/11/2023 6:45 PM [facility] Station ID: [id number]
[2023-11-11] MEDS: LABETALOL 20 MG/4 ML SYRINGE IVP PRN ×2 (20:44→21:17)
--- NOTE | 2023-11-11 21:42 | PROVIDER PROGRESS NOTE ---
Assessment/Plan - Problem List (1) Cerebellar stroke Assessment/Plan: Patient underwent an MRI of the brain today that revealed a large infarct with hemorrhagic component centered in the left cellaburate or hemisphere but also involving the distal left MANAGER ENVIRONMENTAL territory resulting in significant cerebral edema and effacement of the fourth ventricle. Patient appears to be developing hydrocephalus. I discussed the results with his Marge and informed her that his cerebellar infarct was highly likely to be significantly life-changing with a markedly reduced quality of life. We also discussed the fact the patient has a POLST that states he wishes to be DO NOT RESUSCITATE and also wants limited interventions. Goal is to maintain blood pressure range of [id number] with optimal goal of 140. (2) Hypertension Conclusion/Plan: Antihypertension's have been transition to IV medications and include labetalol and hydralazine. (3) Encephalopathy Conclusion/Plan: (4) Goals of Care Conclusion/Plan: CODE STATUS after discussion with patient's , Marge Parada, the decision has been made for patient to be DO NOT RESUSCITATE. Per his Marge, the patient would only want limited interventions.Marge will discuss further goals with other family members. - Current Meds Current Meds: Current Medications Generic Name Dose Route Start Last Admin Trade Name Freq PRN Reason Stop Dose Admin Aspirin 81 mg 11/11/23 09:00 11/11/23 08:42 Aspirin Ec 81 Mg Tablet PO 81 mg DAILY CHAPARRO Administration Enoxaparin Sodium 40 mg 11/09/23 09:00 11/11/23 07:53 Enoxaparin 40 Mg/0.4 Ml Syringe SUBQ 40 mg DAILY CHAPARRO Administration Hydralazine HCl 10 mg 11/11/23 15:50 11/11/23 16:26 Hydralazine Inj 20 Mg/Ml Vial IVP 10 mg Q4H PRN Administration Hypertension Labetalol HCl 10 mg 11/11/23 18:57 11/11/23 20:44 Labetalol 20 Mg/4 Ml Syringe IVP 10 mg Q4H PRN Administration hypertension Labetalol HCl 20 mg 11/11/23 20:54 11/11/23 21:17 Labetalol 20 Mg/4 Ml Syringe IVP 20 mg Q1HR PRN Administration Hypertension Magnesium Oxide 400 mg 11/10/23 09:00 11/11/23 20:44 Magnesium Oxide 400 Mg Tablet PO Not Given BID CHAPARRO Polyethylene Glycol 17 gm 11/11/23 09:00 11/11/23 08:27 Polyethylene Glycol 3350 17 Gm Packet PO 17 gm DAILY CHAPARRO Administration Multivit/Folic Acid/Iron 1 tab 11/11/23 08:00 11/11/23 07:49 Vitamin Tablet PO 1 tab DAILYWM CHAPARRO Administration Propranolol HCl 10 mg 11/11/23 12:00 11/11/23 20:44 Propranolol 10 Mg Tablet PO Not Given QID CHAPARRO Sodium Chloride 10 ml 11/08/23 17:00 11/11/23 21:00 Sodium Chloride Flush 0.9% 10 Ml Syringe IVP 10 ml 0100,0900,1700 CHAPARRO Administration Thiamine HCl 100 mg 11/11/23 09:00 11/11/23 08:27 Thiamine 100 Mg Tablet PO 100 mg DAILY CHAPARRO Administration - Lab Result Fish Bone Diagrams: 11/09/23 04:24 11/10/23 19:56 - Additional Planning My Orders: My Active Orders 11/11/23 Evaluate and Treat OT [OT] Routine Evaluate and Treat PT [PT] Routine 11/11/23 08:00 Vitamin [Trinatal Rx 1] 1 tab PO DAILYWM 11/11/23 09:00 Aspirin EC [Ecotrin] 81 mg PO DAILY Thiamine [Vitamin B-1] 100 mg PO DAILY polyethylene glycoL 3350 [Miralax] 17 gm PO DAILY 11/11/23 10:12 NPO for Test [DIET] 11/11/23 12:00 Propranolol [Inderal] 10 mg PO QID 11/11/23 15:49 Acetaminophen [Tylenol] 650 mg PO Q4HR PRN 11/11/23 15:50 hydrALAZINE INJ [Apresoline Inj] 10 mg IVP Q4H PRN 11/11/23 15:55 hydrALAZINE [Apresoline] 10 mg PO Q4H PRN 11/11/23 18:51 Chowdhury Insertion [RC] QSHIFT 11/11/23 18:52 Chowdhury Continuation and Care [RC] QSHIFT 11/11/23 18:57 Labetalol Syringe [Trandate Syringe] 10 mg IVP Q4H PRN 11/11/23 20:54 Labetalol Syringe [Trandate Syringe] 20 mg IVP Q1HR PRN Subjective - Subjective Patient Reports: Other (Intermittently alert. Able to respond to some questions. He denies chest pain and abdominal pain.) Objective Vital Signs: Vital Signs - 24 hr 11/10/23 11/10/23 11/10/23 22:00 23:00 23:20 Temperature 36.8 C Heart Rate [ 85 96 Monitoring electrodes] Heart Rate [ Radial] Respiratory 13 20 Rate Blood Pressure 152/93 H Blood Pressure [Left Brachial artery] Blood Pressure 166/102 H 152/93 H [Right Brachial artery] O2 Saturation 94 95 If not protocol : Oxygen Flow, liters/minute 11/11/23 11/11/23 11/11/23 07:49 08:04 10:00 Temperature 36.6 C 37.3 C Heart Rate [ Monitoring electrodes] Heart Rate [ 77 80 Radial] Respiratory 20 22 Rate Blood Pressure 171/107 H Blood Pressure 171/107 H [Left Brachial artery] Blood Pressure 137/92 H [Right Brachial artery] O2 Saturation 94 If not protocol : Oxygen Flow, liters/minute 11/11/23 11/11/23 11/11/23 11:52 14:15 14:17 Temperature Heart Rate [ Monitoring electrodes] Heart Rate [ 86 Radial] Respiratory 24 23 Rate Blood Pressure Blood Pressure [Left Brachial artery] Blood Pressure 157/98 H [Right Brachial artery] O2 Saturation 85 L 92 If not protocol 1 : Oxygen Flow, liters/minute 11/11/23 11/11/23 11/11/23 14:46 15:00 16:26 Temperature Heart Rate [ Monitoring electrodes] Heart Rate [ Radial] Respiratory Rate Blood Pressure 184/117 H Blood Pressure [Left Brachial artery] Blood Pressure 186/108 H [Right Brachial artery] O2 Saturation 95 If not protocol : Oxygen Flow, liters/minute 11/11/23 11/11/23 11/11/23 18:00 18:11 20:30 Temperature 36.9 C Heart Rate [ Monitoring electrodes] Heart Rate [ 86 Radial] Respiratory 18 Rate Blood Pressure 186/109 H Blood Pressure 186/109 H [Left Brachial artery] Blood Pressure 174/110 H [Right Brachial artery] O2 Saturation 92 If not protocol : Oxygen Flow, liters/minute 11/11/23 11/11/23 11/11/23 20:45 20:50 20:55 Temperature Heart Rate [ Monitoring electrodes] Heart Rate [ Radial] Respiratory Rate Blood Pressure Blood Pressure [Left Brachial artery] Blood Pressure 164/98 H 154/102 H 155/90 H [Right Brachial artery] O2 Saturation If not protocol : Oxygen Flow, liters/minute 11/11/23 11/11/23 11/11/23 21:00 21:05 21:10 Temperature Heart Rate [ Monitoring electrodes] Heart Rate [ 90 70 87 Radial] Respiratory Rate Blood Pressure Blood Pressure [Left Brachial artery] Blood Pressure 174/111 H 162/98 H 176/117 H [Right Brachial artery] O2 Saturation If not protocol : Oxygen Flow, liters/minute Oxygen O2 Source Room air Oxygen Flow Rate 2 I&O (Last 24 Hrs): Intake and Output Totals x24h 11/09/23 11/10/23 11/11/23 23:59 23:59 23:59 Intake Total 4220.867 1640 280 Output Total 200 875 925 Balance 4020.867 765 -645 General: No acute distress HEENT: Atraumatic Neck: Supple, No JVD Neuro: Other (Somnolent but able to answer some questions.) Cardiovascular: Other (Positive S1-S2 no extra heart sounds.) Respiratory: Other (Fair air exchange in all lung norris positive rhonchi and crackles.) Abdomen: Other (Soft nondistended nontender) Extremities: No cyanosis, No edema Skin: No rashes - Results Results: Laboratory Results WBC 8.8 x10^3/uL (4.8-10.8) 11/09/23 04:24 RBC 3.34 10^6/uL (4.70-6.10) L 11/09/23 04:24 Hgb 10.6 g/dL (14.0-18.0) L 11/09/23 04:24 Hct 33.4 % (42.0-52.0) L 11/09/23 04:24 MCV 100.0 fL (80.0-94.0) H 11/09/23 04:24 MCH 31.7 pg (27.0-31.0) H 11/09/23 04:24 MCHC 31.7 g/dL (32.0-36.0) L 11/09/23 04:24 RDW 14.4 % (12.0-15.0) 11/09/23 04:24 Plt Count 174 10^3/uL (130-450) 11/09/23 04:24 MPV 10.4 fL (7.4-11.4) 11/09/23 04:24 Neut # (Auto) 7.2 10^3/uL (1.5-6.6) H 11/09/23 04:24 Lymph # (Auto) 0.7 10^3/uL (1.5-3.5) L 11/09/23 04:24 Mckenzie # (Auto) 0.8 10^3/uL (0.0-1.0) 11/09/23 04:24 Eos # (Auto) 0.1 10^3/uL (0.0-0.7) 11/09/23 04:24 Baso # (Auto) 0.1 10^3/uL (0.0-0.1) 11/09/23 04:24 Absolute Nucleated RBC 0.00 x10^3/uL 11/09/23 04:24 Nucleated RBC % 0.0 /100WBC 11/09/23 04:24 VBG pH 7.469 (7.31-7.41) H 11/10/23 12:55 Ionized Calcium 1.18 mmol/L (1.15-1.33) 11/10/23 12:55 Sodium 136 mmol/L (135-145) 11/10/23 07:38 Potassium 3.7 mmol/L (3.5-4.5) 11/10/23 19:56 Chloride 105 mmol/L (101-111) 11/10/23 07:38 Carbon Dioxide 23 mmol/L (21-32) 11/10/23 07:38 Anion Gap 8.0 (6-13) 11/10/23 07:38 BUN 13 mg/dL (6-20) 11/10/23 07:38 Creatinine 0.8 mg/dL (0.6-1.3) 11/10/23 07:38 Estimated GFR (MDRD) 94 (>89) 11/10/23 07:38 Glucose 115 mg/dL (74-104) H 11/10/23 07:38 POC Whole Bld Glucose 98 mg/dL (70 - 100) 11/09/23 11:54 Calcium 9.2 mg/dL (8.5-10.3) 11/10/23 07:38 Phosphorus 2.8 mg/dL (2.5-5.0) 11/10/23 07:38 Magnesium 2.0 mg/dL (1.7-2.3) 11/10/23 19:56 Total Bilirubin 1.0 mg/dL (0.2-1.0) 11/10/23 07:38 AST 25 IU/L (10-42) 11/10/23 07:38 ALT 14 IU/L (10-60) 11/10/23 07:38 Alkaline Phosphatase 56 IU/L (42-121) 11/10/23 07:38 Total Creatine Kinase 69 IU/L (30-223) 11/07/23 22:20 Troponin I High Sens 9.3 ng/L (2.3-19.7) 11/10/23 19:56 Total Protein 6.4 g/dL (6.4-8.9) 11/10/23 07:38 Albumin 3.8 g/dL (3.2-5.5) 11/10/23 07:38 Globulin 2.6 g/dL (2.1-4.2) 11/10/23 07:38 Albumin/Globulin Ratio 1.5 (1.0-2.2) 11/10/23 07:38 Lipase 33 U/L (11-82) 11/07/23 22:20 TSH 0.68 uIU/mL (0.34-5.60) 11/10/23 07:38 Urine Color YELLOW 11/07/23 22:28 Urine Clarity CLEAR (CLEAR) 11/07/23 22:28 Urine pH 6.0 PH (5.0-7.5) 11/07/23 22:28 Ur Specific [place] 1.025 (1.002-1.030) 11/07/23 22:28 Urine Protein NEGATIVE mg/dL (NEGATIVE) 11/07/23 22:28 Urine Glucose (UA) NEGATIVE mg/dL (NEGATIVE) 11/07/23 22:28 Urine Ketones NEGATIVE mg/dL (NEGATIVE) 11/07/23 22:28 Urine Occult Blood NEGATIVE (NEGATIVE) 11/07/23 22:28 Urine Nitrite NEGATIVE (NEGATIVE) 11/07/23 22:28 Urine Bilirubin NEGATIVE (NEGATIVE) 11/07/23 22:28 Urine Urobilinogen 0.2 (NORMAL) E.U./dL (NORMAL) 11/07/23 22:28 Ur Leukocyte Esterase NEGATIVE (NEGATIVE) 11/07/23 22:28 Ur Microscopic Review NOT INDICATED 11/07/23 22:28 Urine Culture Comments NOT INDICATED 11/07/23 22:28 Nasal Screen MRSA (PCR) NEGATIVE (NEGATIVE) 11/08/23 14:00 Salicylates < 1.5 mg/dL 11/07/23 22:20 Urine Opiates Screen NEGATIVE (NEGATIVE) 11/07/23 22:28 Ur Buprenorphine Scrn NEGATIVE (NEGATIVE) 11/07/23 22:28 Ur Oxycodone Screen NEGATIVE (NEGATIVE) 11/07/23 22:28 Urine Methadone Screen NEGATIVE (NEGATIVE) 11/07/23 22:28 Acetaminophen 0.1 ug/mL 11/07/23 22:20 Ur Barbiturates Screen NEGATIVE (NEGATIVE) 11/07/23 22:28 Ur Tricyclics Screen NEGATIVE (NEGATIVE) 11/07/23 22:28 Ur Phencyclidine Scrn NEGATIVE (NEGATIVE) 11/07/23 22:28 Ur Amphetamine Screen NEGATIVE (NEGATIVE) 11/07/23 22:28 U Methamphetamines Scrn NEGATIVE (NEGATIVE) 11/07/23 22:28 U Benzodiazepines Scrn NEGATIVE (NEGATIVE) 11/07/23 22:28 Urine Cocaine Screen NEGATIVE (NEGATIVE) 11/07/23 22:28 U Cannabinoids Screen NEGATIVE (NEGATIVE) 11/07/23 22:28 Ur Drug Screen Comment CUTOFF CONC BELOW: 11/07/23 22:28 Ethyl Alcohol < 10.0 mg/dL 11/07/23 22:20
[2023-11-11 22:13] VITALS: O2SAT 96
[2023-11-11 22:50] VITALS: BP 147/98
--- NOTE | 2023-11-12 00:39 | PROVIDER PROGRESS NOTE ---
Resource Room Teacher Note - Resource Room Teacher Note Resource Room Teacher Note: RN paged "FYI Expected passing. DNR Pt MRI came back "large infarction w/ hemorrhagic components centered on the left cerebellar hemisphere bult also involving the distal left PUBLICATIONS DISTRIBUTION CLERK territory results in significant cerebral edema" Pt's TRACEE was contacted per day MD with results of MRI, and about possible passing of pt in the night. DPOA was contacted at midnight making aware that patient had stopped breathing and was currently administering rescue breathing with ambu bag. Confirmed with DPOA DNR" given the grave dx of cerebral edema and lack of surgical intervention capability, patient's deterioration was expected and at this point nonreversible. base of RN report, family is aware. no new orders will change the outcome. [place] Storm
--- NOTE | 2023-11-17 07:13 | DISCHARGE SUMMARY ---
Discharge Summary Admit Date: 11/08/23 Discharge Date: 11/12/23 Discharging Provider: Saud Mac Code Status: Do Not Attempt Resuscitation Condition at Discharge: Fair Discharge Disposition: 20 Discharge Facility Name: [facility] - DIAGNOSES Admission Diagnoses: (1) Encephalopathy (2) Hypertension Discharge Diagnoses with Status of Each Condition: (1) Cerebellar stroke (2) Hypertension (3) Encephalopathy - HPI History of Present Illness: Garrett Parada is a 77-year-old man who lives in an assisted living facility. Ac cording to his he usually buys alcohol on Friday night and drinks it Friday, Friday, Friday, Friday and then does not drink Friday or . In his assisted living facility, he was found yelling by the elevators. He vomited several times en route to the emergency department and upon arrival in the emergency room was speaking in full sentences. He was not able to give a history in the emergency room. A CT scan of the head was performed in the emergency room which was read as negative. In the emergency room he was moving all 4 extremities with equal strength. His reports that the patient has significant memory problems and most likely has dementia. Patient is currently unable to make his own decisions and per his , he is DO NOT RESUSCITATE. The patient remained in the emergency room and reportedly became agitated with CIWA scores of 2226. He received multiple doses of lorazepam in the emergency room. - HOSPITAL COURSE Hospital Course: Mr. Parada was admitted to the hospital as an inpatient to the intensive care unit. Goals of care were discussed with his and the patient was DO NOT RESUSCITATE. His said he would only want limited interventions. The etiology of patient's altered mental status was not clear and sedation medications were used very conservatively. He received metoprolol and hydralazine for blood pressure control. On hospital day #2, the patient's mental status had improved, however, he continued to have garbled speech and was intermittently agitated. On hospital day #3, the patient underwent an MRI of the brain that revealed a large cerebellar infarct with a hemorrhagic component centered in the left cerebellar hemisphere and also involving the distal left BANQUET PREP COOK territory. The results were discussed with the patient's and she requested to continue to manage his care conservatively. Blood pressure control continued with goal of maintaining his systolic blood pressure range between 130-150. The patient on November 12, 2023 at 0015 - ALLERGIES Allergies/Adverse Reactions: Allergies Allergy/AdvReac Type Severity Reaction Status Date / Time amoxicillin Allergy Unknown Verified 12/25/22 09:10 clindamycin Allergy Unknown Verified 12/25/22 09:10 Penicillins Allergy Unknown Verified 12/25/22 09:10 - MEDICATIONS Home Medications: Ambulatory Orders Medication Instructions Recorded Confirmed Acetaminophen [Tylenol] 500 mg PO Q4HR PRN 12/25/22 11/08/23 Cyanocobalamin (Vitamin B-12) 1,000 mcg PO DAILY 12/25/22 11/08/23 [Vitamin B-12] Folic Acid 1 mg PO DAILY 12/25/22 11/08/23 LORazepam [Ativan] 0.5 mg PO Q6H PRN 12/25/22 11/08/23 Lactobacillus Combination No.4 1 each PO DAILY 12/25/22 11/08/23 [Probiotic] Metoprolol Succinate [Toprol Xl] 25 mg PO DAILY 12/25/22 11/08/23 Multivitamin 1 each PO DAILY 12/25/22 11/08/23 Diclofenac Sodium 1% Gel [Voltaren 2 gm TOP QID PRN 11/08/23 11/08/23 Gel] HYDROcod/ACETAM 5/325 [[place] 5/325] 1 tab PO Q6HR PRN 11/08/23 11/08/23 Neomycn/Bacitrc/Polymyx/Pramox 1 appful TP PRN PRN 11/08/23 11/08/23 [Triple Antibiotic Plus Oint] Omeprazole 20 mg PO DAILY 11/08/23 11/08/23 - LABS Result Diagrams: 11/09/23 04:24 11/10/23 19:56 - TIME SPENT Time Spent in Discharge (Minutes): 15
== END 2023-11-12 00:15 | disposition expired | DRG 70 ==
LOC: EDUNIT# → ED 21:30 → ICU 11-08 13:12
PROVIDERS: ADMIT Internal Medicine; ATTEND Internal Medicine
DX: G93.40 Encephalopathy, unspecified (principal); F10.231 Alcohol dependence with withdrawal delirium; F02.811 Dementia in other diseases classified elsewhere, unspecified severity, with agitation; I63.9 Cerebral infarction, unspecified; G91.9 Hydrocephalus, unspecified; I11.0 Hypertensive heart disease with heart failure; I50.9 Heart failure, unspecified; E78.00 Pure hypercholesterolemia, unspecified; I48.91 Unspecified atrial fibrillation; Z66 Do not resuscitate; Z87.891 Personal history of nicotine dependence; F03.90 Unspecified dementia, unspecified severity, without behavioral disturbance, psychotic disturbance, mood disturbance, and anxiety; Z78.1 Physical restraint status
CPT/HCPCS: 36415; 70450; 70551; 71045; 80048; 80053; 80143; 80306; 81003; 82330; 82550; 83690; 83735; 84100; 84132; 84443; 84484; 85025; 87040; 87150; 93005; 96365; 96367; 96372; 96375; 96376; 99285; A9270; G0480; J0131; J1650; J2060; J3411; J7120; 80179; 81001; 82077; 87086